=== PATIENT | female | born 1940 | race Native Hawaiian/Other Pacific Islander ===

== ENCOUNTER → 2016-11-01 | Outpatient (CLI) | payer MEDICARE ==
[2016-11-01 10:55] LABS: Blood Urea Nitrogen 11 mg/dL (7-17); Non-African American GFR(MDRD) >60 (>60 ml/min/1.73 sqM)
--- NOTE | 2016-11-01 13:03 | CT ---
EXAMINATION TYPE: CT ChestAbdPelvis w con DATE OF EXAM: 11/01/2016 COMPARISON: 02/04/2016, 12/22/2015 and 12/18/2014. HISTORY: Lymphoma. Follow-up exam. CT DLP: 1795.4 mGycm. Automated Exposure Control for Dose Reduction was Utilized. CONTRAST: CT scan of the thorax, abdomen and pelvis is performed with IV Contrast, patient injected with 100 mL of Omnipaque 300. FINDINGS: LUNGS: There has been interval growth of the right upper lobe pulmonary nodule on series 4 image 23 p reviously measuring up to 1.4 cm and currently measuring 1.1 x 1.7 cm. This solid nodule demonstrates peripheral spiculation and groundglass opacity. Additional 2 to 3 mm right upper lobe pulmonary nodu les on series 4 image 18 are unchanged. Right lower lobe groundglass pulmonary nodule measures approx imately 1.2 cm on series 4 image 33. This is more conspicuous than on the prior exam but overall unch anged in size. Linear pleural parenchymal scarring is seen within the left lower lobe as well as subp leural density on series 4 image 31 which likely relates to chronic scarring and/or atelectasis. Righ t lower lobe nodularity on series 4 image 44 is unchanged and also may relate to focus of atelectasis with no discrete measurable nodule. MEDIASTINUM: There are no greater than 1 cm hilar or mediastinal lymph nodes. No pericardial effusi on is seen. Three-vessel coronary artery calcifications are noted. OTHER: Benign dystrophic calcifications are seen within the breast parenchyma. LIVER/GB: The liver is diffusely hypoattenuated, compatible with moderate hepatic steatosis. Addition ally there is a nodular peripheral contour, indicative of underlying hepatocellular disease and cirrh osis. Gallbladder wall hyperemia and mild apparent thickening most likely relates to adjacent hepatoc ellular disease, reactive in nature. No focal suspicious arterially enhancing hepatic lesions are see n, although hepatic steatosis does limit evaluation for hepatic masses. No perihepatic ascites is pre sent. No portal vein enlargement is noted. Note is made of recanalization of the umbilical vein. PANCREAS: No significant abnormality is seen. SPLEEN: Spleen is enlarged measuring 14.4 cm in craniocaudal dimension. ADRENALS: No significant abnormality is seen. KIDNEYS: No significant abnormality is seen. BOWEL: No significant abnormality is seen. GENITAL ORGANS: Left adnexal cyst is similar to the prior exam, slightly decreased in size. LYMPH NODES: No greater than 1cm abdominal or pelvic lymph nodes are appreciated. OSSEOUS STRUCTURES: Grade 1 anterolisthesis of L4-L5 is noted, likely degenerative in nature as there are no pars interarticularis defects. Minimal degenerative changes of the thoracolumbar and lumbosac ral spine are seen as well as midline sternotomy wires. OTHER: There is slight haziness of the mid abdominal mesentery centrally within the abdomen without d iscrete adenopathy, which may relate to mesenteric venous congestion. Atherosclerosis is also seen in the abdominal aorta with ectasia but no aneurysmal dilatation. IMPRESSION: 1. Enlarging right lower lobe pulmonary nodule measuring 1.1 x 1.7 cm and previously measuring 1.4 cm . Consideration could be given to percutaneous sampling or PET/CT. Other subcentimeter pulmonary nod ules are noted to be stable. 2. Hepatic cirrhosis and sequela of portal venous hypertension. Central mesenteric fat stranding is m ore likely related to mesenteric congestion in the setting of cirrhosis rather than lymphomatous invo lvement. 3. No adenopathy within the chest, abdomen or pelvis.
== END | disposition home or self-care (01) ==
LOC: RADCTMAIN 09:55
PROVIDERS: ATTEND Internal Medicine Hematology & Oncology
DX: C83.31 Diffuse large B-cell lymphoma, lymph nodes of head, face, and neck (principal); R91.8 Other nonspecific abnormal finding of lung field; K74.60 Unspecified cirrhosis of liver; K76.6 Portal hypertension; Z88.6 Allergy status to analgesic agent; Z88.8 Allergy status to other drugs, medicaments and biological substances
CPT/HCPCS: 82565; 84520; 71260; 74177; 36415; Q9967

== ENCOUNTER → 2017-05-01 | Outpatient (CLI) | payer MEDICARE ==
[2017-05-01 17:59] LABS: HCT 42.1 % (34.0-46.0); MCH 31.8 pg (25.0-35.0); MCHC 33.2 g/dL (31.0-37.0); MCV 95.7 fL (80.0-100.0); Mean Platelet Volume 8.9; Platelet Count 125 k/uL (150-450); RDW 13.4 % (11.5-15.5); WBC 8.2 k/uL (3.8-10.6)
[2017-05-01 18:07] LABS: ALT 58 U/L (9-52); AST 71 U/L (14-36); Albumin 4.3 g/dL (3.5-5.0); Alkaline Phosphatase 48 U/L (38-126); Bilirubin, Delta 0.4 mg/dL (0.0-0.2); Blood Urea Nitrogen 16 mg/dL (7-17); Total Bilirubin 0.4 mg/dL (0.2-1.3); Total Protein 7.2 g/dL (6.3-8.2)
[2017-05-01 18:08] LABS: INR 1.1 (<1.2); Prothrombin Time 10.9 sec (9.0-12.0)
--- NOTE | 2017-05-01 22:47 | CT ---
EXAMINATION TYPE: CT ChestAbdPelvis w con DATE OF EXAM: 05/01/2017 COMPARISON: 11/01/2016 and 12/22/2015 HISTORY: 76-year-old female lymphoma, observance for metastases. TECHNIQUE: Contiguous axial scanning of the chest, abdomen, and pelvis performed with IV Contrast, pa tient injected with 100ml mL of Omnipaque 300. Delayed images through the kidneys were obtained. Slade nal/sagittal reconstructions performed. CT DLP: 2044 mGycm Automated exposure control for dose reduction was used. FINDINGS: Chest: Median sternotomy wires are present with post CABG changes. The heart is borderline enlarged without pericardial effusion. Moderate atherosclerotic arch calcification with conventional arch vessel branching anatomy. 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 -A couple 4 mm pulmonary nodules peripheral right upper lobe axial image 17 are unchanged. -Mixed groundglass and solid 2.2 cm subpleural pulmonary nodule posterior right upper lobe axial imag e 21 is unchanged from 11/01/2016 and noted to be minimally larger from 12/22/2015 where it measured 2 .0 cm. -A 1.1 cm groundglass pulmonary nodule peripheral right lower lobe axial image 31 stable from 11/02/19 17, more defined from 12/22/2015. -8 mm subpleural pulmonary nodule medial basilar left lower lobe axial image 30 stable from 11/01/2016 , more defined from 12/22/2015. -Band of atelectasis/scar at the left lower lobe. No pleural effusion. ABDOMEN: Mild circumferential wall thickening of the distal esophagus could represent esophagitis. Clinically correlate. Nodular hepatic contour compatible with cirrhosis. No focal lesion seen. Large caliber to the main po rtal vein at 1.6 cm compatible with underlying portal venous hypertension. Portal venous system appea rs patent. Gallbladder shows some layering gravel at the fundus without abnormal distention. The adrenal glands, kidneys, and pancreas appear within normal limits. Spleen is borderline enlarged at 13.5 cm AP and craniocaudal axial image 51 and coronal image 67 with small anterior splenule. Moderate atherosclerotic calcifications within the abdominal aorta and iliac arteries. Borderline fus iform ectasia of the infrarenal abdominal aorta at 2.5 cm, axial image 74. Mild central ruddy mesentery remains unchanged axial image 83 and 90. No mesenteric or retroperitonea l lymphadenopathy. Mild to moderate stool burden. No pericolonic inflammatory change. Pelvis: Bladder underdistended. Mild circumferential bladder wall thickening may relate to under distention. Uterus surgically absent. Ovaries are visualized. There is a stable 2.7 cm cystic lesion within the l eft ovary. This is actually smaller as compared to 24/08/2015, stable from 11/01/2016. No abnormal flui d collection in the pelvis or pelvic lymphadenopathy seen. Bones: Mild degenerative changes of the hips and SI joints. Degenerative changes mid to lower lumbar spine w ith grade 1 anterolisthesis at L4-L5. No osseous destructive process. No dilated small bowel, free fluid, or free air. IMPRESSION: 1. Scattered mixed groundglass and solid pulmonary nodules, stable from 11/01/2016, dominant nodule me asuring 2.2 cm. Many of these are either more full or minimally larger as compared to 12/22/2015 such as the dominant posterior right upper lobe nodule which measured 2.0 cm at that time. 2. Central ruddy mesentery of the abdomen can be seen with indolent or early lymphoma and remains unc hanged. 3. Otherwise, no suspicious lymphadenopathy in the chest, abdomen, or pelvis. 4. Cirrhosis. There is enlargement of the main portal vein and borderline splenomegaly suggesting por kerri venous hypertension. 5. Mild circumferential wall thickening distal esophagus could represent esophagitis. Cholelithiasis, and stable 2.7 cm cystic left ovarian lesion. Annual ultrasound surveillance would be warranted of t he cystic ovarian lesion in a postmenopausal female.
[2017-05-02 03:01] LABS: Hepatitis A Antibody IgM Non-Reactive (Non-Reactive); Hepatitis B Core IgM Non-Reactive (Non-Reactive)
[2017-05-02 11:44] LABS: Ceruloplasmin 36.6 mg/dL (20.0-60.0)
== END ==
LOC: RADCTMAIN 16:39
PROVIDERS: ATTEND Internal Medicine Hematology & Oncology
DX: C83.31 Diffuse large B-cell lymphoma, lymph nodes of head, face, and neck (principal); R91.8 Other nonspecific abnormal finding of lung field; K74.60 Unspecified cirrhosis of liver; R16.1 Splenomegaly, not elsewhere classified; K80.20 Calculus of gallbladder without cholecystitis without obstruction; N83.202 Unspecified ovarian cyst, left side; Z78.0 Asymptomatic menopausal state; Z88.8 Allergy status to other drugs, medicaments and biological substances; Z88.6 Allergy status to analgesic agent
CPT/HCPCS: 80076; 80074; 82565; 84520; 85027; 85610; 83516 ×2; 82390; 86038; 71260; 74177; 36415; Q9967; 82105

== ENCOUNTER → 2017-10-16 | Outpatient (CLI) | payer MEDICARE ==
[2017-10-16 12:27] LABS: Blood Urea Nitrogen 13 mg/dL (7-17)
--- NOTE | 2017-10-16 15:57 | CT ---
EXAMINATION TYPE: CT ChestAbdPelvis w con DATE OF EXAM: 10/16/2017 COMPARISON: May 01, 2017 HISTORY: Lymphoma CT DLP: 2081 mGycm CONTRAST: CT scan of the chest, abdomen and pelvis is performed with Oral Contrast and with IV Contrast, patien t injected with 100 ml mL of Isovue 300. CT Chest: LUNGS: Stable peripheral pulmonary nodules. More confluent masslike infiltrative the areas superior s egment right lower lobe pleural-based is essentially unchanged and measures 1.6 cm. Similar although less conspicuous abnormality left lower lobe medially measuring 7 mm. No new nodules seen. No new mas ses identified. No evidence for pleural effusion. COPD changes. MEDIASTINUM: Thoracic aorta is of normal caliber. The heart is not enlarged. No evidence for media stinal mass or adenopathy. HILAR STRUCTURES: No evidence for mass. No hilar adenopathy is appreciated. OTHER: No significant abnormality. CONTRAST CT ABDOMEN AND PELVIS FINDINGS: LIVER/GB: Hepatomegaly with nodule peripheral hepatic contour compatible with cirrhotic liver diseas e. Portal venous hypertension again noted. Cholelithiasis. Fatty liver. No space occupying hepatic le mirian. Biliary tree is of normal caliber. PANCREAS: No inflammation. No distinct mass. SPLEEN: Table mild splenic enlargement. No lesion seen. ADRENALS: No nodule. No thickening. KIDNEYS/BLADDER: No hydronephrosis. No nephrolithiasis. No disctinct renal mass. BOWEL: Normal appendix. Normal bowel caliber. No inflammation. GENITAL ORGANS: Left ovarian cystic change measuring 2.7 cm stable relative to prior study. No right adnexal mass seen. Hysterectomy changes noted. LYMPH NODES: No greater than 1cm abdominal or pelvic lymph nodes are appreciated. AORTA: No significant abnormality. OSSEOUS STRUCTURES: No significant abnormality is seen. OTHER: No significant additional abnormality is seen. IMPRESSION: 1. Stable scattered pulmonary nodules as discussed above. No new nodules identified. 2. Cirrhotic liver disease with portal venous hypertension.
== END | disposition home or self-care (01) ==
LOC: RADCTMAIN 11:33
PROVIDERS: ATTEND Internal Medicine Hematology & Oncology
DX: K74.60 Unspecified cirrhosis of liver (principal); K76.6 Portal hypertension; C83.31 Diffuse large B-cell lymphoma, lymph nodes of head, face, and neck; Z88.6 Allergy status to analgesic agent; Z88.8 Allergy status to other drugs, medicaments and biological substances
CPT/HCPCS: 82565; 84520; 71260; 74177; 36415; Q9967

== ENCOUNTER → 2018-04-18 | Outpatient (CLI) | payer MEDICARE ==
[2018-04-18 10:31] LABS: Blood Urea Nitrogen 17 mg/dL (7-17)
--- NOTE | 2018-04-18 13:22 | CT ---
EXAMINATION TYPE: CT ChestAbdPelvis w con DATE OF EXAM: 04/18/2018 COMPARISON: 10/16/2017 and 05/01/2017 HISTORY: 77-year-old female Follow up to lymphoma TECHNIQUE: Contiguous axial scanning of the chest, abdomen, and pelvis performed with IV Contrast, pa tient injected with 100 mL of Isovue 300. Delayed images through the kidneys were obtained. Coronal/s agittal reconstructions performed. CT DLP: 1858.7 mGycm Automated exposure control for dose reduction was used. FINDINGS: Chest: Median sternotomy wires are present with post-CABG changes. Moderate atherosclerotic calcifications within the aortic arch and descending thoracic aorta. Mild an eurysm of upper descending thoracic aorta at 3.1 cm. No thoracic lymphadenopathy by CT size criteria. Redemonstrated focal subpleural masslike area of consolidation along the posterolateral right mid danae g, axial image 22. This currently measures 2.0 cm. This measured 1.7 cm on 10/16/2017 and 2.2 cm on . Vague scattered groundglass nodularity, for example, peripheral right upper lobe, axial image 17, per ipheral right midlung axial image 31, and medial left lower lobe axial image 29 are largely unchanged . Some strandy atelectasis at the left base. Minimal emphysematous changes noted. No pleural effusion. ABDOMEN: Nodular contour of the liver and hepatomegaly at 21.4 cm. No focal liver lesion or biliary ductal dil atation. Portal venous system appears patent. Gallbladder, adrenal glands, kidneys, and pancreas appear within normal limits. Tiny anterior splenule and stable mild splenomegaly at 14.6 cm measured on coronal series. Moderate atherosclerotic calcifications within the abdominal aorta and moderate to severe within the iliac arteries. Mild fusiform dilatation of the infrarenal abdominal aorta without significant ectasi a or aneurysm. No dilated small bowel, free fluid, or free air. No mesenteric or retroperitoneal lymphadenopathy. Th e ruddy mesentery seen on 05/01/2017 is not as apparent on the present study. Mild overall stool burden. Redundant sigmoid colon. No pericolonic inflammatory change. Pelvis: Bladder partially distended. Uterus surgically absent. Both ovaries are visualized. 2.3 cm cystic les ion of the left ovary remains unchanged. Annual surveillance is recommended in a postmenopausal femal e. No abnormal fluid collection in the pelvis or pelvic lymphadenopathy seen. Bones: Mild degenerative changes at the hips and left SI joint. Facet arthropathy mid to lower lumbar spine. Endplate spondylosis midthoracic spine. Grade 1 anterolisthesis L4-L5. No osseous destructive proces s. IMPRESSION: 1. Stable scattered subtle groundglass nodularity. However, the dominant subpleural masslike consolid ation within the posterior right midlung is stable to minimally larger at 2.0 cm versus 1.7 cm, previ ously. 2. Previously seen ruddy mesentery on 05/01/2017 is improved on the current exam. No suspicious lympha denopathy. 3. Cirrhotic morphology of the liver. Splenomegaly at 14.6 cm suggests underlying pulmonary arterial hypertension. 4. Continued annual surveillance recommended for the patient's 2.3 cm left ovarian cyst.
== END | disposition home or self-care (01) ==
LOC: RADCTMAIN 09:54
PROVIDERS: ATTEND Internal Medicine Hematology & Oncology
DX: Z03.89 Encounter for observation for other suspected diseases and conditions ruled out (principal); R91.8 Other nonspecific abnormal finding of lung field; R16.1 Splenomegaly, not elsewhere classified; C83.31 Diffuse large B-cell lymphoma, lymph nodes of head, face, and neck; Z88.6 Allergy status to analgesic agent; Z88.8 Allergy status to other drugs, medicaments and biological substances
CPT/HCPCS: 82565; 84520; 71260; 74177; 36415; Q9967

== ENCOUNTER 2023-04-14 21:50 | Inpatient (IN) | payer MEDICARE ==
[2023-04-14] MEDS ORDERED: MORPHINE SULFATE 4 MG/ML SYRINGE IV PRN (22:08)
[2023-04-14] MEDS ORDERED: ONDANSETRON 4 MG/2 ML VIAL IVP PRN (22:08)
[2023-04-14] MEDS ORDERED: NALOXONE 0.4 MG/ML 1 ML VIAL IV PRN (22:08)
--- NOTE | 2023-04-14 22:28 | ED ---
SOB HPI - General Chief Complaint: Shortness of Breath Stated Complaint: Respiratory Failure, Sepsis Time Seen by Provider: 04/14/23 22:08 Source: patient, EMS, RN notes reviewed, old records reviewed Mode of arrival: EMS Limitations: no limitations - History of Present Illness Initial Comments: This is a 82-year-old female to the ER today. Patient presents today for evaluation of sepsis pneumonia respiratory failure transfer from outside facility. Patient accepted in transfer for admission and supportive care MD Complaint: shortness of breath, cough, "asthma attack", anxiety -: days(s) Severity: severe Improves With: nothing Known History Of: congestive heart failure, recurrent pneumonia Context: recent URI, recent illness Associated Symptoms: denies other symptoms - Related Data Home Medications Medication Instructions Recorded Confirmed Aspirin EC [Ecotrin Low Dose] 81 mg PO DAILY 04/14/23 04/14/23 Cholecalciferol [Vitamin D3 (25 25 mcg PO DAILY 04/14/23 04/14/23 Mcg = 1000 Iu)] Cyanocobalamin (Vitamin B-12) 1,000 mcg PO DAILY 04/14/23 04/14/23 [Vitamin B-12] Ferrous Sulfate [Iron (65 MG 325 mg PO DAILY 04/14/23 04/14/23 Elemental)] Fluticasone Nasal [place] [Flonase 1 spray EA NOSTRIL DAILY 04/14/23 04/14/23 Nasal [place]] Levothyroxine Sodium [Synthroid] 200 mcg PO DAILY 04/14/23 04/14/23 Omeprazole 40 mg PO DAILY 04/14/23 04/14/23 Simvastatin [Zocor] 20 mg PO HS 04/14/23 04/14/23 carvediloL [Coreg] 6.25 mg PO BID 04/14/23 04/14/23 glipiZIDE [Glucotrol] 5 mg PO BID 04/14/23 04/14/23 lisinopriL 40 mg PO DAILY 04/14/23 04/14/23 metFORMIN HCL 1,000 mg PO BID 04/14/23 04/14/23 Previous Rx's Medication Instructions Recorded Amoxic-Pot Clav 875-125Mg 1 each PO Q12HR 7 Days #14 tab 04/21/23 [Augmentin 875-125] Furosemide [Lasix] 20 mg PO DAILY #30 tab 04/21/23 Isosorbide Mononitrate ER [Imdur] 30 mg PO DAILY #30 tab 04/21/23 Sodium Chloride 0.65% Nasal [Deep 2 spray NASAL QID #5 ml 04/21/23 Sea (Saline)] Allergies Allergy/AdvReac Type Severity Reaction Status Date / Time atorvastatin [From Lipitor] Allergy Unknown Verified 04/14/23 22:39 bisacodyl Allergy Unknown Verified 04/14/23 22:39 [From Dulcolax (bisacodyl)] carisoprodol [From Soma] Allergy Unknown Verified 04/14/23 22:39 morphine Allergy Vomiting Verified 04/14/23 22:39 orphenadrine Allergy Unknown Verified 04/14/23 22:39 pseudoephedrine Allergy Unknown Verified 04/14/23 22:39 [From Sudafed] tramadol [From Ultram] Allergy Unknown Verified 04/14/23 22:39 Review of Systems ROS Statement: Those systems with pertinent positive or pertinent negative responses have been documented in the HPI. ROS Other: All systems not noted in ROS Statement are negative. Past Medical History Past Medical History: Coronary Artery Disease (CAD), Cancer, Chest Pain / Angina, Diabetes Mellitus, Hyperlipidemia, Hypertension, Osteoarthritis (OA), Rheumatoid Arthritis (RA) Additional Past Medical History / Comment(s): hypothyroidism, neuropathy, lymphoma History of Any Multi-Drug Resistant Organisms: None Reported Past Surgical History: Coronary Bypass/CABG, Hysterectomy Additional Past Surgical History / Comment(s): thyroidectomy, Cataracts partial thyroidectomy Past Psychological History: Unable to Obtain Smoking Status: Former smoker Past Alcohol Use History: None Reported Past Drug Use History: None Reported General Exam Limitations: no limitations General appearance: alert, in no apparent distress, anxious Head exam: Present: atraumatic, normocephalic, normal inspection Eye exam: Present: normal appearance, PERRL, EOMI. Absent: scleral icterus, conjunctival injection, periorbital swelling ENT exam: Present: normal exam, mucous membranes moist Neck exam: Present: normal inspection. Absent: tenderness, meningismus, lymph adenopathy Respiratory exam: Present: normal lung sounds bilaterally. Absent: respiratory distress, wheezes, rales, rhonchi, stridor Cardiovascular Exam: Present: normal rhythm, tachycardia, normal heart sounds. Absent: systolic murmur, diastolic murmur, rubs, gallop, clicks GI/Abdominal exam: Present: soft, normal bowel sounds. Absent: distended, tenderness, guarding, rebound, rigid Extremities exam: Present: normal inspection, full ROM, normal capillary refill. Absent: tenderness, pedal edema, joint swelling, calf tenderness Back exam: Present: normal inspection Neurological exam: Present: alert, oriented X3, CN II-XII intact Psychiatric exam: Present: normal affect, normal mood Skin exam: Present: warm, dry, intact, normal color. Absent: rash Course Vital Signs 04/14/23 04/14/23 04/15/23 21:51 21:59 00:00 Temperature 98.8 F Pulse Rate 104 H 97 Pulse Rate [ Keycase Assembler ] Respiratory 12 24 Rate Blood Pressure 121/62 116/59 Blood Pressure [Right Arm] O2 Sat by Pulse 98 98 Oximetry Fraction of 40 Inspired Oxygen (FIO2) 04/15/23 04/15/23 04/15/23 00:45 03:45 04:00 Temperature Pulse Rate 93 Pulse Rate [ Keycase Assembler ] Respiratory 24 Rate Blood Pressure 97/59 Blood Pressure [Right Arm] O2 Sat by Pulse 98 Oximetry Fraction of 40 40 Inspired Oxygen (FIO2) 04/15/23 04/15/23 04/15/23 06:10 07:49 07:59 Temperature 98.6 F Pulse Rate 93 100 Pulse Rate [ Keycase Assembler ] Respiratory 24 24 Rate Blood Pressure 121/63 119/65 Blood Pressure [Right Arm] O2 Sat by Pulse 98 94 L Oximetry Fraction of 50 Inspired Oxygen (FIO2) 04/15/23 04/15/23 04/15/23 11:03 11:49 11:55 Temperature 97.6 F 99.1 F Pulse Rate 80 Pulse Rate [ 84 Keycase Assembler ] Respiratory 34 H 24 Rate Blood Pressure 138/67 Blood Pressure 116/83 [Right Arm] O2 Sat by Pulse 98 99 Oximetry Fraction of 50 40 Inspired Oxygen (FIO2) - Reevaluation(s) Reevaluation #1: 04/14/23 23:38 Medical record is reviewed Reevaluation #2: 04/14/23 23:38 Patient symptoms are unchanged Reevaluation #3: 04/14/23 23:38 Patient informed of results questions answered Reevaluation #4: 04/14/23 23:38 Was pt. sent in by a medical professional or institution (, PA, CUSTOMER OPERATIONS INTERN, urgent care, hospital, or correction...) When possible be specific @ -no Did you speak to anyone other than the patient for history (EMS, parent, family, police, friend...)? What history was obtained from this source @ -no Did you review nursing and triage notes (agree or disagree)? Why? @ -agree Are old charts reviewed (outside hosp., previous admission, EMS record, old EKG, old radiological studies, urgent care reports/EKG's, correction records)? Report findings @ -yes Differential Diagnosis (chest pain, altered mental status, abdominal pain women, abdominal pain men, vaginal bleeding, weakness, fever, dyspnea, syncope, headache, dizziness, GI bleed, back pain, seizure, CVA, palpatations, mental health, musculoskeletal)? @ -prior EKG interpreted by me (3pts min.). @ -yes X-rays interpreted by me (1pt min.). @ -yes positive for right-sided pleural effusion CT interpreted by me (1pt min.). @ -no U/S interpreted by me (1pt. min.). @ -no What testing was considered but not performed or refused? (CT, X-rays, U/S, labs)? Why? @ -none What meds were considered but not given or refused? Why? @ -none Did you discuss the management of the patient with other professionals (professionals i.e. , PA, CUSTOMER OPERATIONS INTERN, lab, RT, psych nurse, health and social care teacher, crusher operator, teacher, branch officer, dependency case manager)? Give summary @ -no Was smoking cessation discussed for >3mins.? @ -no Was critical care preformed (if so, how long)? @ -yes31 Were there social determinants of health that impacted care today? How? (Home lessness, low income, unemployed, alcoholism, drug addiction, transportation, low edu. Level, literacy, decrease access to med. care, senior care, rehab)? @ -none Was there de-escalation of care discussed even if they declined (Discuss DNR or withdrawal of care, Hospice)? DNR status @ -no What co-morbidities impacted this encounter? (DM, HTN, Smoking, COPD, CAD, Cancer, CVA, ARF, Chemo, Hep., AIDS, mental health diagnosis, sleep apnea, morbid obesity)? @ -none Was patient admitted / discharged? Hospital course, mention meds given and route, prescriptions, significant lab abnormalities, going to OR and other pertinent info. @ - 82 female will be admitted for respiratory failure and pneumonia. Patient will be placed on IV antibiotics and admitted for further evaluation and management Admitted Undiagnosed new problem with uncertain prognosis? @ -no Drug Therapy requiring intensive monitoring for toxicity (Heparin, Nitro, Insulin, Cardizem)? @ -no Were any procedures done? @ -no Diagnosis/symptom? @ -Right pleural effusion shortness of breath dyspnea, respiratory failure, pneumonia Acute, or Chronic, or Acute on Chronic? @ -Acute Uncomplicated (without systemic symptoms) or Complicated (systemic symptoms)? @ -Complicated Side effects of treatment? @ -no Exacerbation, Progression, or Severe Exacerbation? @ -exacerbation Poses a threat to life or bodily function? How? (Chest pain, [place], [place], pneumonia, PE, COPD, DKA, ARF, appy, cholecystitis, CVA, Diverticulitis, Homicidal, [place] cidal, threat to staff... and all critical care pts) @ -yes significant respiratory distress Reevaluation #5: 04/14/23 23:39 Differential Dyspnea: Coronary syndrome, arrhythmia, tamponade, asthma, COPD, pulmonary embolism, pneumonia, pneumothorax, pulmonary effusion, anaphylaxis, diabetic ketoacidosis, flailed chest, pulmonary contusion, diaphragmatic rupture, anemia, n euromuscular, this is not meant to be an all-inclusive list. - Consultations Consultation #1: Spoke with [facility] who agrees to admit this patient Medical Decision Making - Medical Decision Making 82 female will be admitted for respiratory failure and pneumonia. Patient will be placed on IV antibiotics and admitted for further evaluation and management - Lab Data Result diagrams: 04/20/23 09:42 04/21/23 08:48 - EKG Data -: EKG Interpreted by Me (EKG is sinus tachycardia 104 [place] 274 QRS 146 QTc 459) - Radiology Data Radiology results: report reviewed (Chest x-ray is pulmonary edema versus pneumonia), image reviewed Critical Care Time Critical Care Time: Yes Total Critical Care Time: 31 Disposition Clinical Impression: Acute exacerbation of chronic obstructive pulmonary disease, Acute respiratory failure, Community acquired pneumonia, Pneumonia, NSTEMI (non-ST elevated myocardial infarction), Pleural effusion, right Disposition: ADMITTED IP TO THIS HOSP Condition: Fair Is patient prescribed a controlled substance at d/c from ED?: No Time of Disposition: 22:20
[2023-04-14] MEDS: SODIUM CHLORIDE 0.9% 1,000 ML IV STA ×2 (22:39)
[2023-04-14] MEDS: SODIUM CHLORIDE 0.9% 1,000 ML IV SCH (22:43)
[2023-04-14 22:44] LABS: Basophils % (A) 0 %; Eosinophils # (A) 0.1 k/uL (0-0.7); Eosinophils % (A) 0 %; HCT 43.6 % (34.0-46.0); HGB 14.2 gm/dL (11.4-16.0); Lymphocytes # (A) 0.8 k/uL (1.0-4.8); Lymphocytes % (A) 4 %; MCH 30.6 pg (25.0-35.0); MCHC 32.7 g/dL (31.0-37.0); MCV 93.6 fL (80.0-100.0); Mean Platelet Volume 9.3; Monocytes # (A) 0.4 k/uL (0-1.0); Monocytes % (A) 2 %; Neutrophils # (A) 18.1 k/uL (1.3-7.7); Neutrophils % (A) 93 %; Platelet Count 205 k/uL (150-450); RBC 4.65 m/uL (3.80-5.40); RDW 13.3 % (11.5-15.5); WBC 19.5 k/uL (3.8-10.6)
[2023-04-14 22:48] LABS: Appearance,Urine Cloudy (Clear); Bilirubin,Urine Negative (Negative); Blood,Urine Negative (Negative); Color,Urine Colorless; Glucose,Urine (UA) Negative (Negative); Hyaline Casts,Urine 12 /lpf (0-2); Ketones,Urine 1+ (Negative); Leukocyte Esterase,Urine Negative (Negative); Mucus,Urine Rare /hpf; Nitrite,Urine Negative (Negative); PH, Urine 5.5 (5.0-8.0); Protein,Urine 1+ (Negative); RBC,Urine 3 /hpf (0-5); Specific Gravity,Urine 1.009 (1.001-1.035); Squamous Epithelial Cell,Urine 2 /hpf (0-4); Urobilinogen,Urine <2.0 mg/dL (<2.0); WBC,Urine 9 /hpf (0-5)
[2023-04-14 22:58] LABS: INR 1.1 (<1.2); Partial Thromboplastin Time 23.8 sec (22.0-30.0); Prothrombin Time 11.6 sec (10.0-12.5)
--- NOTE | 2023-04-14 22:58 | XR ---
EXAM: XR Chest, 1 View CLINICAL HISTORY: ITS.REASON XR Reason: sob TECHNIQUE: Frontal view of the chest. COMPARISON: 04/18/2018. FINDINGS: Lungs: Haziness throughout the visualized right lung suggestive of possible pulmonary edema. Scarring/subsegmental atelectasis at the left midlung. Pleural space: Moderate right pleural effusion is suggested. No pneumothorax. Heart: There is cardiomegaly. Post CABG changes. Mediastinum: Unremarkable. Normal mediastinal contour. Bones/joints: Sternotomy wires are noted in place. No acute fracture. Vasculature: Atherosclerotic disease. Upper abdomen: Elevation of the right hemidiaphragm. IMPRESSION: 1. Cardiomegaly. 2. Moderate right pleural effusion. 3. Presumed pulmonary edema at the right lung. 4. Scarring/subsegmental atelectasis at the right midlung
[2023-04-14 23:18] LABS: ALT 22 U/L (4-34); AST 41 U/L (14-36); African American GFR (CKD) 87 (>60 ml/min/1.73 sqM); Albumin 3.8 g/dL (3.5-5.0); Alkaline Phosphatase 55 U/L (38-126); Anion Gap 15 mmol/L; Blood Urea Nitrogen 15 mg/dL (7-17); Calcium 8.4 mg/dL (8.4-10.2); Carbon Dioxide 13 mmol/L (22-30); Chloride 97 mmol/L (98-107); Glucose 226 mg/dL (74-99); Magnesium 1.5 mg/dL (1.6-2.3); Non-African American GFR(CKD) 76 (>60 ml/min/1.73 sqM); Phosphorus 4.9 mg/dL (2.5-4.5); Potassium 5.3 mmol/L (3.5-5.1); Sodium 125 mmol/L (137-145); Total Bilirubin 0.6 mg/dL (0.2-1.3); Total Protein 6.6 g/dL (6.3-8.2)
[2023-04-14 23:25] LABS: NT-Pro-B-Type Natriuretic Pept 805 pg/mL
[2023-04-14] MEDS ORDERED: NITROGLYCERIN SL TABS 0.4 MG TAB SUBLINGUAL PRN (23:42)
[2023-04-14] MEDS ORDERED: HYDROmorphone 1 MG/ML 1 ML SYRINGE IVP PRN (23:44)
[2023-04-14] MEDS: AZITHROMYCIN 500 MG in SODIUM CHLORIDE 0.9% 250 ML IVPB STA (23:54)
[2023-04-14] MEDS: HEPARIN SODIUM 1,000 UN/ML (10ML VL) IV ONE (23:54)
[2023-04-15] MEDS: HYDROmorphone 1 MG/ML 1 ML SYRINGE IVP STA (00:09)
[2023-04-15] MEDS: HEPARIN SOD,PORK IN 0.45% NACL 25,000 UNIT in 0.45% NACL 1 250ML.BAG IV SCH (00:14)
--- NOTE | 2023-04-15 06:43 | XR ---
EXAMINATION TYPE: XR chest 1V DATE OF EXAM: 04/15/2023 COMPARISON: 04/14/2023 HISTORY: Respiratory failure TECHNIQUE: Single frontal view of the chest is obtained. FINDINGS: There is been interval worsening of the opacification of the right hemithorax predominantly secondary to an increasing large right pleural effusion. The left lung remains clear of airspace consolidation but there is diffuse interstitial opacity likel y reflecting mild pulmonary vascular congestion. There is been prior CABG surgery. There is no pneumothorax. IMPRESSION: Acute cardiopulmonary disease with moderate interval worsening in the right lung as desc ribed above.
[2023-04-15 07:45] LABS: Basophils % (A) 0 %; Eosinophils % (A) 0 %; HCT 38.7 % (34.0-46.0); Lymphocytes # (A) 1.5 k/uL (1.0-4.8); Lymphocytes % (A) 16 %; MCH 31.6 pg (25.0-35.0); MCHC 33.5 g/dL (31.0-37.0); MCV 94.2 fL (80.0-100.0); Mean Platelet Volume 8.6; Monocytes # (A) 0.6 k/uL (0-1.0); Monocytes % (A) 6 %; Neutrophils # (A) 7.3 k/uL (1.3-7.7); Neutrophils % (A) 77 %; Platelet Count 159 k/uL (150-450); RBC 4.11 m/uL (3.80-5.40); RDW 13.3 % (11.5-15.5); WBC 9.5 k/uL (3.8-10.6)
[2023-04-15 08:02] LABS: ALT 21 U/L (4-34); AST 35 U/L (14-36); African American GFR (CKD) 87 (>60 ml/min/1.73 sqM); Albumin 3.4 g/dL (3.5-5.0); Alkaline Phosphatase 52 U/L (38-126); Anion Gap 6 mmol/L; Blood Urea Nitrogen 18 mg/dL (7-17); Calcium 8.1 mg/dL (8.4-10.2); Carbon Dioxide 20 mmol/L (22-30); Chloride 101 mmol/L (98-107); Glucose 191 mg/dL (74-99); Magnesium 1.6 mg/dL (1.6-2.3); Non-African American GFR(CKD) 76 (>60 ml/min/1.73 sqM); Phosphorus 4.6 mg/dL (2.5-4.5); Potassium 5.3 mmol/L (3.5-5.1); Sodium 127 mmol/L (137-145); Total Bilirubin 0.4 mg/dL (0.2-1.3); Total Protein 6.1 g/dL (6.3-8.2)
[2023-04-15] MEDS: HEPARIN SODIUM 1,000 UN/ML (10ML VL) IV PRN (08:41)
[2023-04-15] MEDS: ASPIRIN 325 MG TAB PO SCH (08:43)
[2023-04-15] MEDS ORDERED: RX INFO: IV CONTRAST WAS GIVEN 1 EACH MISC MISCELLANE PRN ×2 (09:43→15:33)
--- NOTE | 2023-04-15 09:53 | P.CNPUL ---
History of Present Illness Consult date: 04/15/23 Reason for consult: dyspnea, pneumonia History of present illness: This is a 82-year-old female patient was currently being seen in the emergency department. The patient arrived to our hospital yesterday evening and the patient is currently being seen in the ICU, currently on a BiPAP at a pressure of 12 or 6 cm of water and FiO2 of 50%. Her breathing is labored while on the BiPAP and she is still tachypneic and she is able to generate a tidal volume around 450 while on the BiPAP. The patient initially presented to [facility] for shortness of breath. According to the family, the patient was having issues with constipation and she was taking laxatives at home. She was also having shortness of breath for the past 3 days. She refused to seek any medical attention. Denies having any abdominal pain. In the emergency, she was in acute respiratory distress and she was tachypneic and using accessory muscles of breathing. She has wheezing. She was given Xopenex. Her heart rate was around 130 and she was diaphoretic. She was given Lasix 40 mg IV and she was given also a dose of Solu-Medrol and initially she was placed on a nonrebreather and subsequently she was switched to a BiPAP. Noted the patient is known to have coronary artery disease. She has undergone previous bypass surgery in 2009. She also has history of CHF, and she has been followed by oncology regarding previous history of non-Hodgkin's lymphoma and according to her disease is in remission. She is also known to have diabetes mellitus and hyperlipidemia and she is obese. For now, the patient remains on a BiPAP. Triple-lumen catheter was inserted in the other hospital as the patient was briefly hypotensive. She was given Rocephin and Zithromax. I reviewed the chest x-ray from today and the patient has a very dense and extensive consolida tion involving the entire right lung and the left lung remains clear from her airspace disease. There is obvious worsening in the opacification of the right hemithorax at this point. The patient is arousable and awake. Initial white cell count was 19.5 dropped down to 9.5. Hemoglobin is at 14.2 dropped down to 13. Sodium level is at 127, potassium is at 5.3, BUN is 18 with a creatinine of 0.7. Troponin is at 0.10.2 and 0.3 respectively x 3. UA showing +1 protein, negative for any infection. The patient has not had a viral panel checked at this point. She is currently on IV heparin. Review of Systems Unable to take full history as the patient is currently on a BiPAP and is difficult to communicate with the patient. Positive findings almost above the h istory of present illness. Past Medical History Past Medical History: Coronary Artery Disease (CAD), Cancer (lymphoma, NHL 2012), Chest Pain / Angina, Diabetes Mellitus, Hyperlipidemia, Hypertension, Osteoarthritis (OA), Rheumatoid Arthritis (RA) Additional Past Medical History / Comment(s): hypothyroidism, neuropathy, lymphoma History of Any Multi-Drug Resistant Organisms: None Reported Past Surgical History: Coronary Bypass/CABG, Hysterectomy Additional Past Surgical History / Comment(s): thyroidectomy, Cataracts partial thyroidectomy Past Psychological History: Unable to Obtain Smoking Status: Former smoker Past Alcohol Use History: None Reported Past Drug Use History: None Reported Medications and Allergies Home Medications Medication Instructions Recorded Confirmed Type Aspirin EC [Ecotrin Low Dose] 81 mg PO DAILY 04/14/23 04/14/23 History Cholecalciferol [Vitamin D3 (25 25 mcg PO DAILY 04/14/23 04/14/23 History Mcg = 1000 Iu)] Cyanocobalamin (Vitamin B-12) 1,000 mcg PO DAILY 04/14/23 04/14/23 History [Vitamin B-12] Ferrous Sulfate [Feosol] 325 mg PO DAILY 04/14/23 04/14/23 History Fluticasone Nasal [place] [Flonase 1 spray EA NOSTRIL DAILY 04/14/23 04/14/23 History Nasal [place]] Levothyroxine Sodium [Synthroid] 200 mcg PO DAILY 04/14/23 04/14/23 History Meloxicam [Mobic] 7.5 mg PO DAILY 04/14/23 04/14/23 History Omeprazole 40 mg PO DAILY 04/14/23 04/14/23 History Simvastatin [Zocor] 20 mg PO HS 04/14/23 04/14/23 History carvediloL [Coreg] 6.25 mg PO BID 04/14/23 04/14/23 History glipiZIDE [Glucotrol] 5 mg PO BID 04/14/23 04/14/23 History lisinopriL 40 mg PO DAILY 04/14/23 04/14/23 History metFORMIN HCL 1,000 mg PO BID 04/14/23 04/14/23 History Allergies Allergy/AdvReac Type Severity Reaction Status Date / Time atorvastatin [From Lipitor] Allergy Unknown Verified 04/14/23 22:39 bisacodyl Allergy Unknown Verified 04/14/23 22:39 [From Dulcolax (bisacodyl)] carisoprodol [From Soma] Allergy Unknown Verified 04/14/23 22:39 morphine Allergy Vomiting Verified 04/14/23 22:39 orphenadrine Allergy Unknown Verified 04/14/23 22:39 pseudoephedrine Allergy Unknown Verified 04/14/23 22:39 [From Sudafed] tramadol [From Ultram] Allergy Unknown Verified 04/14/23 22:39 Physical Exam Vitals: Vital Signs Temp Pulse Resp BP Pulse Ox FiO2 04/15/23 07:59 40 04/15/23 07:49 98.6 F 100 24 119/65 94 L 04/15/23 06:10 93 24 121/63 98 04/15/23 04:00 93 24 97/59 98 04/15/23 03:45 40 04/15/23 00:45 40 04/15/23 00:00 97 24 116/59 98 04/14/23 21:59 40 04/14/23 21:51 98.8 F 104 H 12 121/62 98 Intake and Output 04/14/23 04/15/23 04/15/23 22:59 06:59 14:59 Intake Total 84.833 Output Total 600 Balance -515.167 Intake: Intake, IV Titration 84.833 Amount Heparin Sod,Pork in 0.45% 84.833 NaCl 25,000 unit In 0.45 % NaCl 1 250ml.bag @ 10. 5992 UNITS/KG/HR 10 mls/ hr IV .Q24H [facility] Rx#: [id number] Output: Urine 600 Other: Weight 94.347 kg Patient is currently on a BiPAP pressure of 12/6 with reports of 50%. Breathing is labored and the patient is a mild degree of respiratory distress. Head exam was generally normal. There was no scleral icterus or corneal arcus. Mucous membranes were moist. Neck was supple and without jugular venous distension, thyromegaly, or carotid bruits. Carotids were easily palpable bilaterally. There was no adenopathy. Lung sounds are diminished specially on the right compared to the last few sc attered rhonchi scattered expiratory wheezes. Cardiac exam revealed the PMI to be normally situated and sized. The rhythm was regular and no extrasystoles were noted during several minutes of auscultation. The first and second heart sounds were normal and physiologic splitting of the second heart sound was noted. There were no murmurs, rubs, clicks, or gallops. Abdominal exam revealed normal bowel sounds. The abdomen was soft, non-tender, and without masses, organomegaly, or appreciable enlargement of the abdominal aorta. Examination of the extremities revealed easily palpable radial, femoral and pedal pulses. There was no cyanosis, clubbing or edema. Noted the patient has a triple-lumen catheter in the right femoral vein. Examination of the skin revealed no evidence of significant rashes, suspicious appearing nevi or other concerning lesions. Neurologic is able to move all extremities and there is no focal neurological deficit at this point in time. She is able to communicate and follow simple commands. Results - Laboratory Findings CBC and BMP: 04/15/23 07:13 04/15/23 07:13 PT/INR, D-dimer PT 11.6 sec (10.0-12.5) 04/14/23 22:18 INR 1.1 (<1.2) 04/14/23 22:18 Abnormal lab findings: Abnormal Labs 04/14/23 04/14/23 04/14/23 22:18 22:18 22:18 WBC 19.5 H Neutrophils # 18.1 H Lymphocytes # 0.8 L APTT Sodium 125 L Potassium 5.3 H Chloride 97 L Carbon Dioxide 13 L BUN Glucose 226 H Calcium Phosphorus 4.9 H Magnesium 1.5 L AST 41 H Troponin I Total Protein Albumin Urine Appearance Cloudy H Urine Protein 1+ H Urine Ketones 1+ H Urine WBC 9 H Hyaline Casts 12 H Urine Mucus Rare H 04/14/23 04/15/23 04/15/23 22:18 01:59 07:13 WBC Neutrophils # Lymphocytes # APTT Sodium 127 L Potassium 5.3 H Chloride Carbon Dioxide 20 L BUN 18 H Glucose 191 H Calcium 8.1 L Phosphorus 4.6 H Magnesium AST Troponin I 0.162 H* 0.234 H* Total Protein 6.1 L Albumin 3.4 L Urine Appearance Urine Protein Urine Ketones Urine WBC Hyaline Casts Urine Mucus 04/15/23 04/15/23 07:13 07:13 WBC Neutrophils # Lymphocytes # APTT 38.8 H Sodium Potassium Chloride Carbon Dioxide BUN Glucose Calcium Phosphorus Magnesium AST Troponin I 0.324 H* Total Protein Albumin Urine Appearance Urine Protein Urine Ketones Urine WBC Hyaline Casts Urine Mucus - Diagnostic Findings Chest x-ray: image reviewed Assessment and Plan Plan: Acute hypoxic respiratory failure and the patient is currently on a BiPAP at a pressure of 12/6 with an FiO2 of 50%. Note that the patient is impending respiratory failure at this point and she may require intubation mechanical ventilation for that reason the patient will be transferred to the intensive care unit for further monitoring. The patient has dense consolidation of the right lung sparing the right apex. This is most likely consistent with a pneumonia. Pleural effusion is felt to be less likely Shortness of breath secondary to above Acute leukocytosis, improving Hypotension, improved with fluids, currently on Lopressor and the patient has triple-lumen cath in the right femoral vein Obesity with a BMI of 31.6 History of non-Hodgkin's lymphoma History of coronary artery disease with previous bypass surgery Diabetes mellitus Hypertension Rheumatoid arthritis Degenerative arthritis Troponin leak, likely secondary to type II ischemia related to extensive right lung pneumonia Plan Continue BiPAP for now at the same pressure setting. Obtain a blood gas May likely require intubation mechanical ventilation especially if the patient decompensates and/or does not show any significant improvement over the next few hours Obtain a CAT scan of the chest with contrast Check procalcitonin level Will cover the patient with a combination of Zosyn, vancomycin and Zithromax Check blood cultures IV fluids at a rate of 130 cc an hour of normal saline Obtain echocardiogram Continue IV heparin in regards to the elevation of troponins Will continue to follow. Condition is critical. The patient will need ICU transfer. Time with Patient: Greater than 30
[2023-04-15] MEDS ORDERED: VANCOMYCIN IV PER PHARMACY 1 EACH MISC MISCELLANE PRN (09:54)
[2023-04-15] MEDS: PIPERACILLIN-TAZOBACTAM 3.375 GM in SODIUM CHLORIDE 0.9% 100 ML IVPB SCH (10:25)
[2023-04-15 10:37] LABS: ABG Base Excess -4.9 mmol/L; ABG HCO3 21 mmol/L (21-25); ABG Oxygen Saturation 98.7 % (94-97); ABG PCO2 37 mmHg (35-45); ABG PH 7.35 (7.35-7.45); ABG PO2 114 mmHg (83-108); ABG TCO2 22 mmol/L (19-24); Allen Test Performed? Yes
[2023-04-15] MEDS: VANCOMYCIN 1,500 MG in SODIUM CHLORIDE 0.9% 500 ML 500 ML IVPB SCH (11:09)
--- NOTE | 2023-04-15 11:20 | CT ---
EXAMINATION TYPE: CT chest w con DATE OF EXAM: 04/15/2023 COMPARISON: 04/18/2018 HISTORY: Resiratory failure, pneumonia CT DLP: 339 mGycm Automated exposure control for dose reduction was used. TECHNIQUE: CT scan of the chest is performed with IV Contrast, patient injected with 100 mL of Isovue 300. MIP Images are created on CT scanner and reviewed. 3D reconstructed images are created on an independent workstation and reviewed. FINDINGS: There is a large right pleural effusion and right lower lobe atelectasis. There is a small left pleur al effusion. The great vessels chest are normal and there is no mediastinal, hilar or axillary adenopathy. Limited scanning through the upper abdomen reveals fatty infiltration. No focal osseous lesions are seen. Impression: large right pleural effusion and right lower lobe atelectasis.
[2023-04-15 11:50] LABS: Glucose,Whole Blood 166 mg/dL (70-110)
[2023-04-15] MEDS ORDERED: DEXTROSE 50% SYRINGE 50 ML IVP PRN ×2 (12:37)
[2023-04-15 12:43] LABS: African American GFR (CKD) >90 (>60 ml/min/1.73 sqM); Anion Gap 8 mmol/L; Blood Urea Nitrogen 19 mg/dL (7-17); Carbon Dioxide 19 mmol/L (22-30); Chloride 101 mmol/L (98-107); Glucose 156 mg/dL (74-99); Non-African American GFR(CKD) 82 (>60 ml/min/1.73 sqM); Potassium 5.1 mmol/L (3.5-5.1); Sodium 128 mmol/L (137-145)
--- NOTE | 2023-04-15 13:59 | P.PCN ---
Date of Procedure: 04/15/23 Preoperative Diagnosis: Pleural effusion right Postoperative Diagnosis: Pleural effusion right Procedure(s) Performed: Thoracentesis, right Anesthesia: local Surgeon: Tosha Parsons Estimated Blood Loss (ml): 0 Pathology: other Condition: critical Disposition: ICU Operative Findings: A time out was performed and the chest x-ray was reviewed, the appropriate side was confirmed and marked. My hands were washed immediately prior to the procedure. I wore a surgical cap, mask with protective eyewear, sterile gown and sterile gloves throughout the procedure. The patient was prepped and draped in a sterile manner using chlorhexidine scrub after the appropriate level was perc ussed and confirmed by ultrasound. 1% lidocaine was used to anesthesize the skin, subcutaneous tissue, superior aspect of the rib periosteum and parietal pleura. A finder needle was then introduced over the superior aspect of the rib to locate the pleural fluid; 2colored fluid was aspirated at a depth of approximately 2 cm. A 10-blade scalpel was used to katarina the skin at the insertion site. The [id number] needle was then introduced through the skin incision into the pleural space using negative aspiration pressure and the red colometric indicator to confirm appropriate positioning of the needle. The thoracentesis catheter was then threaded without difficulty. 2400 ml of turbid colored fluid was removed without difficulty. The catheter was then removed. No immediate complications were noted during the procedure. A post-procedure chest x-ray is pending at the time of this note. The fluid will be sent for studies. Estimated blood loss is 0cc
[2023-04-15] MEDS ORDERED: Magnesium Replacement Protocol 1 EACH MISC MISCELLANE PRN (14:04)
--- NOTE | 2023-04-15 14:05 | XR ---
EXAMINATION TYPE: XR chest 1V portable DATE OF EXAM: 04/15/2023 COMPARISON: 04/14/2023 HISTORY: Post right thoracentesis TECHNIQUE: Single frontal view of the chest is obtained. FINDINGS: There is been a marked reduction in the right pleural effusion following thoracentesis. There is no p neumothorax. There is persistent partially consolidated focal opacity in the right upper lobe likely representing a pneumonic infiltrate. The left lung is clear. There is CABG surgery. The heart size is normal in the pulmonary vasculature does not appear grossly congested. IMPRESSION: 1. No pneumothorax following right-sided thoracentesis. 2. Marked reduction in the right pleural effusion following thoracentesis. No definite right pleural effusion persists. 3. Focal infiltrate in the right upper lobe.
[2023-04-15 14:55] LABS: Chol/HDL Ratio 3.35 Ratio; LDL Cholesterol,Calculated 65.3 mg/dL (0.0-131.0)
[2023-04-15] MEDS: MAGNESIUM SULFATE-D5W PMX 1 GM in DEXTROSE/WATER 1 100ML.BAG IVPB SCH (15:00)
[2023-04-15] MEDS: SODIUM CHLORIDE 0.9% 1,000 ML IV SCH (15:04)
--- NOTE | 2023-04-15 15:23 | P.CRDCN ---
History of Present Illness History of present illness: HISTORY OF PRESENTING ILLNESS This is a pleasant 82-year-old female past medical history significant for 4 vessel coronary bypass 2010 in [place], hypertension, diabetes pam litus, dyslipidemia, non-Hodgkin's lymphoma and obesity. She has not followed with a business systems analyst since she moved to [place] in 2013. We have been asked to see in consultation for elevated troponin. He presented to an outside hospital with complaints of shortness of breath. She was initially placed on BiPAP. When I saw her in the emergency department she was communicating appropriately. She was sitting up in bed and in no acute distress. She has a dense consolidation of the right lung. Pulmonary has seen her and started her on antibiotics. She denies chest pain. EKG reveals sinus tach with an underlying right bundle branch block. CT of the chest reveals a large right pleural effusion and right lower lobe atelectasis. Telemetry has been sinus rhythm. Laboratory data reviewed, WBC initially 19.5 down to 9.5, hemoglobin 13, platelets 159, sodium 128, potassium 5.1, creatinine 0.67, NT proBNP 8280, troponin 0.162, 0.234, 0.324. Current cardiac medications include lisinopril 40 mg daily, Coreg 6.25 mg twice a day, simvastatin 20 mg daily and aspirin 81 mg daily. She indicates she has not had any cardiac testing. Hospital records reviewed, no previous cardiac testing. REVIEW OF SYSTEMS At the time of my exam: CONSTITUTIONAL: Denies fever or chills. CARDIOVASCULAR: Complains of shortness of breath. Denies chest pain, orthopnea, PND or palpitations. RESPIRATORY: Denies cough. GASTROINTESTINAL: Denies abdominal pain, diarrhea, constipation, nausea or vomiting. MUSCULOSKELETAL: Denies myalgias. NEUROLOGIC: Denies numbness, tingling, headache or weakness. ENDOCRINE: Denies fatigue, weight change, polydipsia or polyurina. GENITOURINARY: Denies burning, hematuria or urgency with micturation. HEMATOLOGIC: Denies history of anemia or bleeding. PHYSICAL EXAMINATION Blood pressure 121/88 heart rate 82 afebrile and maintaining oxygen saturation on Bipap. CONSTITUTIONAL: No apparent distress. HEENT: Head is normocephalic. Pupils are equal, round. Sclerae anicteric. Mucous membranes of the mouth are moist. No JVD. No carotid bruit. CHEST EXAMINATION: Diminished bilaterally, scattered rhonchi on the right, no rales or wheezes. HEART EXAMINATION: Regular rate and rhythm. S1, S2 heard. No murmurs, gallops or rub. ABDOMEN: Soft, nontender. EXTREMITIES: 2+ peripheral pulses, no lower extremity edema and no calf tenderness. NEUROLOGIC EXAMINATION: Patient is awake, alert and oriented x3. ASSESSMENT Acute Hypoxic respiratory failure Troponin elevation, Type II myocardial infarction secondary to oxygen supply demand mismatch Coronary artery disease status post bypass grafting Leukocytosis Hypertension Dyslipidemia Diabetes mellitus Obesity PLAN Obtain 2-D echocardiogram and Doppler study to assess cardiac structure and function. Continue cardiac medications. No plans for coronary intervention. We will continue to follow and make recommendations accordingly. Thank you kindly for this consultation. Nurse Practitioner note has been reviewed, I agree with a documented findings and plan of care. Patient was seen and examined. Past Medical History Past Medical History: Coronary Artery Disease (CAD), Cancer (lymphoma, NHL 2012), Chest Pain / Angina, Diabetes Mellitus, Hyperlipidemia, Hypertension, Osteoarthritis (OA), Rheumatoid Arthritis (RA) Additional Past Medical History / Comment(s): hypothyroidism, neuropathy, lymphoma History of Any Multi-Drug Resistant Organisms: None Reported Past Surgical History: Coronary Bypass/CABG, Hysterectomy Additional Past Surgical History / Comment(s): thyroidectomy, Cataracts partial thyroidectomy Past Psychological History: Unable to Obtain Smoking Status: Former smoker Past Alcohol Use History: None Reported Past Drug Use History: None Reported Medications and Allergies Home Medications Medication Instructions Recorded Confirmed Type Aspirin EC [Ecotrin Low Dose] 81 mg PO DAILY 04/14/23 04/14/23 History Cholecalciferol [Vitamin D3 (25 25 mcg PO DAILY 04/14/23 04/14/23 History Mcg = 1000 Iu)] Cyanocobalamin (Vitamin B-12) 1,000 mcg PO DAILY 04/14/23 04/14/23 History [Vitamin B-12] Ferrous Sulfate [Feosol] 325 mg PO DAILY 04/14/23 04/14/23 History Fluticasone Nasal Sun [Flonase 1 spray EA NOSTRIL DAILY 04/14/23 04/14/23 History Nasal Sun] Levothyroxine Sodium [Synthroid] 200 mcg PO DAILY 04/14/23 04/14/23 History Meloxicam [Mobic] 7.5 mg PO DAILY 04/14/23 04/14/23 History Omeprazole 40 mg PO DAILY 04/14/23 04/14/23 History Simvastatin [Zocor] 20 mg PO HS 04/14/23 04/14/23 History carvediloL [Coreg] 6.25 mg PO BID 04/14/23 04/14/23 History glipiZIDE [Glucotrol] 5 mg PO BID 04/14/23 04/14/23 History lisinopriL 40 mg PO DAILY 04/14/23 04/14/23 History metFORMIN HCL 1,000 mg PO BID 04/14/23 04/14/23 History Allergies Allergy/AdvReac Type Severity Reaction Status Date / Time atorvastatin [From Lipitor] Allergy Unknown Verified 04/14/23 22:39 bisacodyl Allergy Unknown Verified 04/14/23 22:39 [From Dulcolax (bisacodyl)] carisoprodol [From Soma] Allergy Unknown Verified 04/14/23 22:39 morphine Allergy Vomiting Verified 04/14/23 22:39 orphenadrine Allergy Unknown Verified 04/14/23 22:39 pseudoephedrine Allergy Unknown Verified 04/14/23 22:39 [From Sudafed] tramadol [From Ultram] Allergy Unknown Verified 04/14/23 22:39 Physical Exam Vitals: Vital Signs Temp Pulse Pulse Resp BP BP Pulse Ox 04/15/23 14:52 93 L 04/15/23 14:00 82 28 H 121/88 100 04/15/23 13:00 75 32 H 104/56 98 04/15/23 12:00 81 32 H 108/57 98 04/15/23 11:55 99.1 F 80 24 138/67 99 04/15/23 11:49 97.6 F 84 34 H 116/83 98 04/15/23 11:03 04/15/23 07:59 04/15/23 07:49 98.6 F 100 24 119/65 94 L 04/15/23 06:10 93 24 121/63 98 04/15/23 04:00 93 24 97/59 98 04/15/23 03:45 04/15/23 00:45 04/15/23 00:00 97 24 116/59 98 04/14/23 21:59 04/14/23 21:51 98.8 F 104 H 12 121/62 98 FiO2 04/15/23 14:52 40 04/15/23 14:00 40 04/15/23 13:00 40 04/15/23 12:00 40 04/15/23 11:55 04/15/23 11:49 40 04/15/23 11:03 50 04/15/23 07:59 50 04/15/23 07:49 04/15/23 06:10 04/15/23 04:00 04/15/23 03:45 40 04/15/23 00:45 40 04/15/23 00:00 04/14/23 21:59 40 04/14/23 21:51 Intake and Output 04/15/23 04/15/23 04/15/23 06:59 14:59 22:59 Intake Total 354.833 74.099 Output Total 675 Balance -320.167 74.099 Intake: IV 270 Invasive Line 1 10 Invasive Line 2 30 Magnesium Sulfate-D5w Pmx 100 1 gm In Dextrose/Water 1 100ml.bag @ 100 mls/hr IVPB Q1H [facility] Rx#: [id number] Sodium Chloride 0.9% 1, 130 000 ml @ 130 mls/hr IV . Q7H42M [facility] Rx#:[id number] Intake, IV Titration 84.833 74.099 Amount Heparin Sod,Pork in 0.45% 84.833 74.099 NaCl 25,000 unit In 0.45 % NaCl 1 250ml.bag @ 10. 5992 UNITS/KG/HR 10 mls/ hr IV .Q24H [facility] Rx#: [id number] Output: Urine 675 Results 04/15/23 07:13 04/15/23 12:17 Cardiac Enzymes 04/14/23 04/14/23 04/15/23 Range/Units 22:18 22:18 01:59 AST 41 H (14-36) U/L Troponin I 0.162 H* 0.234 H* (0.000-0.034) ng/mL 04/15/23 04/15/23 Range/Units 07:13 07:13 AST 35 (14-36) U/L Troponin I 0.324 H* (0.000-0.034) ng/mL Coagulation 04/14/23 04/15/23 04/15/23 Range/Units 22:18 07:13 12:06 PT 11.6 (10.0-12.5) sec APTT 23.8 38.8 H 40.3 H (22.0-30.0) sec Lipids 04/15/23 Range/Units 07:13 Triglycerides 105.00 (0.00-149.00) mg/dL Cholesterol 123.00 (0.00-200.00) mg/dL HDL Cholesterol 36.70 L (40.00-60.00) mg/dL Cholesterol/HDL Ratio 3.35 Ratio CBC 04/14/23 04/15/23 Range/Units 22:18 07:13 WBC 19.5 H 9.5 (3.8-10.6) k/uL RBC 4.65 4.11 (3.80-5.40) m/uL Hgb 14.2 13.0 (11.4-16.0) gm/dL Hct 43.6 38.7 (34.0-46.0) % Plt Count 205 159 (150-450) k/uL Comprehensive Metabolic Panel 04/14/23 04/15/23 04/15/23 Range/Units 22:18 07:13 12:17 Sodium 125 L 127 L 128 L (137-145) mmol/L Potassium 5.3 H 5.3 H 5.1 (3.5-5.1) mmol/L Chloride 97 L 101 101 (98-107) mmol/L Carbon Dioxide 13 L 20 L 19 L (22-30) mmol/L BUN 15 18 H 19 H (7-17) mg/dL Creatinine 0.74 0.74 0.67 (0.52-1.04) mg/dL Glucose 226 H 191 H 156 H (74-99) mg/dL Calcium 8.4 8.1 L 8.0 L (8.4-10.2) mg/dL AST 41 H 35 (14-36) U/L ALT 22 21 (4-34) U/L Alkaline Phosphatase 55 52 (38-126) U/L Total Protein 6.6 6.1 L (6.3-8.2) g/dL Albumin 3.8 3.4 L (3.5-5.0) g/dL Current Medications Generic Name Dose Route Start Last Admin Trade Name Freq PRN Reason Stop Dose Admin Aspirin 81 mg 04/16/23 09:00 Aspirin 81 Mg PO DAILY [facility] Carvedilol 6.25 mg 02/10/24 17:30 Carvedilol 6.25 Mg Tab PO AC-BID [facility] Cholecalciferol 25 mcg 04/16/23 09:00 Cholecalciferol 25 Mcg (1000 Iu) Tablet PO DAILY [facility] Cyanocobalamin 1,000 mcg 04/16/23 09:00 Cyanocobalamin 500 Mcg Tab PO DAILY [facility] Dextrose/Water 25 ml 04/15/23 12:37 Dextrose 50% Syringe 50 Ml IVP PER PROTOCOL PRN Hypoglycemia Protocol Dextrose/Water 50 ml 04/15/23 12:37 Dextrose 50% Syringe 50 Ml IVP PER PROTOCOL PRN Hypoglycemia Protocol Ferrous Sulfate 325 mg 04/16/23 09:00 Ferrous Sulfate 325 Mg Tab PO DAILY [facility] Fluticasone Propionate 1 spray 04/16/23 09:00 Fluticasone 50mcg/Sun Nasal 16gm EA NOSTRIL DAILY [facility] Glipizide 5 mg 04/15/23 17:30 Glipizide 5 Mg Tab PO AC-[facility] Heparin Sodium (Porcine) 0 unit 04/15/23 08:22 04/15/23 15:03 Heparin Sodium 1,000 Un/Ml (10ml Vl) IV 2,350 unit PER PROTOCOL PRN Administration Low PTT Protocol Hydromorphone HCl 1 mg 04/14/23 23:44 Hydromorphone 1 Mg/Ml 1 Ml Syringe IVP Q4HR PRN Pain Azithromycin 500 mg/ Sodium 250 mls @ 250 mls/hr 04/15/23 22:00 Chloride IVPB 04/17/23 22:59 DAILY@2200 [facility] Protocol Heparin Sodium/Sodium Chloride 250 mls @ 10 mls/hr 04/14/23 23:45 04/15/23 15:00 25,000 unit/ Sodium Chloride IV 14.5 units/kg/hr .Q24H [facility] 13.68 mls/hr Titration Protocol 10.5992 UNITS/KG/HR Piperacillin Sod/Tazobactam 100 mls @ 25 mls/hr 04/15/23 10:00 04/15/23 10:25 Sod 3.375 gm/ Sodium Chloride IVPB 25 mls/hr Q8H [facility] Administration Protocol Vancomycin HCl 1,500 mg/ 500 mls @ 167 mls/hr 04/15/23 10:00 04/15/23 11:09 Sodium Chloride IVPB 167 mls/hr Q16H [facility] Administration Sodium Chloride 1,000 mls @ 130 mls/hr 04/15/23 14:00 04/15/23 15:04 Saline 0.9% IV 130 mls/hr .Q7H42M [facility] Administration Magnesium Sulfate/Dextrose 1 100 mls @ 100 mls/hr 04/15/23 14:15 04/15/23 15:00 gm/ IV Solution IVPB 04/15/23 16:14 100 mls/hr Q1H [facility] Administration Protocol Insulin Aspart 0 unit 04/15/23 17:30 Insulin Aspart (Novolog) 100 Unit/Ml Vial SQ ACHS [facility] Protocol Levothyroxine Sodium 200 mcg 04/16/23 06:30 Levothyroxine 100 Mcg Tab PO DAILY@0630 [facility] Lisinopril 40 mg 04/16/23 09:00 Lisinopril 20 Mg Tab PO DAILY [facility] Metformin HCl 1,000 mg 04/17/23 07:30 Metformin 500 Mg Tab PO AC-BID [facility] Miscellaneous Information 1 each 04/15/23 09:43 Rx Info: Iv Contrast Was Given 1 Each Misc MISCELLANE 04/17/23 09:43 DAILY PRN Per Protocol Miscellaneous Information 1 each 04/15/23 14:04 Magnesium Replacement Protocol 1 Each Misc MISCELLANE DAILY PRN Per Protocol Protocol Naloxone HCl 0.2 mg 04/14/23 22:08 Naloxone 0.4 Mg/Ml 1 Ml Vial IV Q2M PRN Opioid Reversal Nitroglycerin 0.4 mg 04/14/23 23:42 Nitroglycerin Sl Tabs 0.4 Mg Tab SUBLINGUAL Q5M PRN Chest Pain Simvastatin 20 Mg 20 mg 04/15/23 21:00 Tab PO HS [facility] Ondansetron HCl 4 mg 04/14/23 22:08 Ondansetron 4 Mg/2 Ml Vial IVP Q8HR PRN Nausea And Vomiting Pantoprazole Sodium 40 mg 04/16/23 07:30 Pantoprazole 40 Mg Tablet PO AC-BRKFST [facility] Intake and Output 04/15/23 04/15/23 04/15/23 06:59 14:59 22:59 Intake Total 354.833 74.099 Output Total 675 Balance -320.167 74.099 Intake: IV 270 Invasive Line 1 10 Invasive Line 2 30 Magnesium Sulfate-D5w Pmx 100 1 gm In Dextrose/Water 1 100ml.bag @ 100 mls/hr IVPB Q1H [facility] Rx#: [id number] Sodium Chloride 0.9% 1, 130 000 ml @ 130 mls/hr IV . Q7H42M [facility] Rx#:[id number] Intake, IV Titration 84.833 74.099 Amount Heparin Sod,Pork in 0.45% 84.833 74.099 NaCl 25,000 unit In 0.45 % NaCl 1 250ml.bag @ 10. 5992 UNITS/KG/HR 10 mls/ hr IV .Q24H [facility] Rx#: [id number] Output: Urine 675 04/15/23 07:13 04/15/23 12:17
--- NOTE | 2023-04-15 15:46 | HP ---
HISTORY AND PHYSICAL CHIEF COMPLAINT: Shortness of breath and respiratory failure. HISTORY OF PRESENT ILLNESS: This 82-year-old woman with a past medical history of including diabetes, hypertension, hyperlipidemia, non-Hodgkin lymphoma, rheumatoid arthritis, CAD, CABG, was not feeling well over the past several days. The patient initially had constipation. The patient presented to being transferred to [facility] for further evaluation and treatment. The patient also has hypotension. The patient also had significant right-sided pneumonia with pleural effusion. Dr. Parsons is following the patient closely. The patient is monitored in ICU at this time. There is no history of any fever, rigors, chills. PAST MEDICAL HISTORY: History of diabetes mellitus, hypertension, hyperlipidemia, rheumatoid arthritis, non- Hodgkin lymphoma, Rest of the history and chart was also reviewed. The patient is followed by in the outpatient setting. HOME MEDICATIONS: Reviewed, include lisinopril. Dose and rest of medications reviewed. ALLERGIES: Reviewed include Lipitor, rest of allergies noted. FAMILY HISTORY: No history of heart disease or strokes in the family. SOCIAL HISTORY: Previous history of smoking. REVIEW OF SYSTEMS: Fourteen-point review of systems negative except as mentioned earlier. PHYSICAL EXAMINATION: VITAL SIGNS: Pulse is 80, blood pressure 130/60, respirations 20. HEENT: Conjunctivae normal. NECK: No jugular venous distention. CARDIOVASCULAR: S1, S2. RESPIRATION: Diminished on the right side. Scattered rhonchi and expiratory wheezing. ABDOMEN: Soft, obese, nontender. No mass palpable. LEGS: No edema. No swelling. NERVOUS SYSTEM: No focal deficit. SKIN: No ulcer, rash, bleeding. LABORATORY DATA: Sodium 128, potassium 5.1. Troponin is 0.32. ASSESSMENT: 1. Shortness of breath, possibly right lower lobe pneumonia with significant pleural effusion with acute hypoxic respiratory failure and hypotension. 2. Troponin 0.32, possible acute [id number]-elevation myocardial infarction. 3. Hyponatremia. 4. History of coronary artery disease. 5. Coronary artery bypass graft. 6. Diabetes mellitus type 2. 7. Hypertension. 8. Hyperlipidemia. 9. History of degenerative joint disease. 10.History of rheumatoid arthritis. 11.History of non-Hodgkin's lymphoma. 12.Multiple complex medical issues. RECOMMENDATIONS AND DISCUSSION: Recommended to continue current management and continue current treatment, otherwise broad-spectrum IV antibiotics. The patient is on BiPAP at this time. Continue the current medications, possible pleural tap and further testing by Dr. Parsons. I would also recommend CT scan of the abdomen and pelvis once the patient's condition stabilizes for a full evaluation. CT scan of chest is personally reviewed and there is significant change in the right side. The fluid evaluation will give us more information. Otherwise, we will also continue to monitor the patient. 2D echo with Doppler and Cardiology evaluation also will be sought because of the high troponins. IV heparin is being given at this time. The prognosis is guarded. Discussed with the patient. Further recommendations to follow. See orders for further details. MMODL / IJN: [id number] / MTDD
[2023-04-15] MEDS: Simvastatin 20 MG Tab PO SCH (16:11)
[2023-04-15 16:20] LABS: Glucose,Whole Blood 161 mg/dL (70-110)
[2023-04-15] MEDS: carvediloL 6.25 MG TAB PO SCH (16:24)
[2023-04-15] MEDS: glipiZIDE 5 MG TAB PO SCH (16:24)
[2023-04-15] MEDS: INSULIN ASPART (NovoLOG) 100 UNIT/ML VIAL SQ SCH (16:35)
--- NOTE | 2023-04-15 16:46 | CA ---
Transthoracic Echo Report Name: Payton Connor Age: 82 Gender: F : 1940 Exam Date: 04/15/2023 14:57 Exam Location: [facility] Ht (in): 68 Wt (lb): 208 Ordering Physician: Payton Oliveros MD Attending/Referring Phys: [employer] Member Gen Tolbert RD Procedure CPT: Indications: chf Cardiac Hx: Technical Quality: Technically difficult study Contrast 1: Definity Total Dose (mL): 2 Contrast 2: Total Dose (mL): MEASUREMENTS (Male / Female) Normal Values 2D ECHO LV Diastolic Diameter PLAX 5.4 cm 4.2 - 5.9 / 3.9 - 5.3 cm LV Systolic Diameter PLAX 4.9 cm IVS Diastolic Thickness 1.1 cm 0.6 - 1.0 / 0.6 - 0.9 cm LVPW Diastolic Thickness 1.3 cm 0.6 - 1.0 / 0.6 - 0.9 cm LV Relative Wall Thickness 0.4 RV Internal Dim ED PLAX 2.7 cm LVOT Diameter 2.2 cm Aortic Root Diameter 2.7 cm LA Systolic Diameter LX 3.3 cm 3.0 - 4.0 / 2.7 - 3.8 cm LV Diastolic Volume MOD BP 91.6 cm??? 67 - 155 / 56 - 104 cm??? LV Systolic Volume MOD BP 58.2 cm??? 22 - 58 / 19 - 49 cm??? LV Ejection Fraction MOD BP 36.4 % >= 55 % LV Cardiac Index MOD BP 1175.7 cm???/min???m??? LV Diastolic Volume MOD 4C 91.3 cm??? LV Systolic Volume MOD 4C 66.4 cm??? LV Ejection Fraction MOD 4C 27.2 % LV Cardiac Index MOD 4C 874.4 cm???/min???m??? LV Diastolic Length 4C 7.9 cm LV Systolic Length 4C 7.5 cm LV Diastolic Volume MOD 2C 88.6 cm??? LV Systolic Volume MOD 2C 50.3 cm??? LV Ejection Fraction MOD 2C 43.3 % LV Cardiac Index MOD 2C 1350.1 cm???/min???m??? LV Diastolic Length 2C 8.3 cm LV Systolic Length 2C 7.6 cm LA Volume 52.6 cm??? 18 - 58 / 22 - 52 cm??? LA Volume Index 24.4 cm???/m??? 16 - 28 cm???/m??? DOPPLER AV Peak Velocity 112.6 cm/s AV Peak Gradient 5.1 mmHg AV Mean Velocity 81.4 cm/s AV Mean Gradient 3.0 mmHg AV Velocity Time Integral 23.1 cm LVOT Peak Velocity 77.3 cm/s LVOT Peak Gradient 2.4 mmHg LVOT Velocity Time Integral 15.6 cm LVOT Stroke Volume 58.2 cm??? LVOT Stroke Volume Index 28.0 ml/m??? LVOT Cardiac Index 2050.6 cm???/min???m??? AV Area Cont Eq vti 2.5 cm??? AV Area Cont Eq pk 2.6 cm??? MV Peak Velocity 124.8 cm/s MV Peak Gradient 6.2 mmHg MV Mean Velocity 58.1 cm/s MV Mean Gradient 1.8 mmHg MV Velocity Time Integral 30.8 cm MR Peak Velocity 197.4 cm/s MR Peak Gradient 15.6 mmHg Mitral E Point Velocity 79.1 cm/s Mitral A Point Velocity 118.3 cm/s Mitral E to A Ratio 0.7 MV Deceleration Time 314.7 ms TR Peak Velocity 237.1 cm/s TR Peak Gradient 22.5 mmHg PV Peak Velocity 87.8 cm/s PV Peak Gradient 3.1 mmHg FINDINGS Left Ventricle Mildly increased LV size. Mild concentric LVH. Left ventricular ejection fraction is estimated at 25-30 %. Mid to distal infer-lateral and lateral wall hypokinesia. Apical and infero-apical wall hypokinesia. Right Ventricle Normal right ventricular size. Right Atrium Normal right atrial size. Left Atrium Mild left atrial dilatation. L volume index= 25ml/m2 Mitral Valve Mild to moderate mitral leaflet calcification. Mild MR. Aortic Valve Mild to moderate AV calcification. No aortic regurgitation. No aortic stenosis. Tricuspid Valve Structurally normal tricuspid valve. Pulmonic Valve Pulmonic valve not well visualized. Mild to moderate PI. Pericardium Not visualized well however grossly normal. Aorta Normal size aortic root. CONCLUSIONS Left ventricular ejection fraction is estimated at 25-30 %. Mildly increased LV size. Mid to distal infer-lateral and lateral wall hypokinesia. Apical and infero-apical wall hypokinesia. No pericardial effusion Previewed by: Dr Paul Wheeler (Electronically Signed) Final Date: 15 April 2023 16:46
[2023-04-15 20:16] LABS: Glucose,Whole Blood 123 mg/dL (70-110)
[2023-04-15] MEDS: SODIUM CHLORIDE 0.65% NASAL SPRAY 44 ML BTL NASAL SCH (20:16)
[2023-04-15] MEDS: AZITHROMYCIN 500 MG in SODIUM CHLORIDE 0.9% 250 ML IVPB SCH (20:24)
[2023-04-15 22:52] LABS: Appearance,BF Bloody (Clear)
[2023-04-15 22:55] LABS: Glucose, BF Source Pleural Fluid; Glucose, Body Fluid 163 mg/dL; T. Protein, Body Fluid Source Pleural Fluid; Total Protein, Body Fluid >3600 mg/dL
[2023-04-16 04:17] LABS: Mean Platelet Volume 8.4; Platelet Count 153 k/uL (150-450)
[2023-04-16 05:48] LABS: African American GFR (CKD) >90 (>60 ml/min/1.73 sqM); Anion Gap 2 mmol/L; Blood Urea Nitrogen 15 mg/dL (7-17); Carbon Dioxide 22 mmol/L (22-30); Chloride 104 mmol/L (98-107); Glucose 171 mg/dL (74-99); Non-African American GFR(CKD) 83 (>60 ml/min/1.73 sqM); Potassium 4.6 mmol/L (3.5-5.1); Sodium 128 mmol/L (137-145)
[2023-04-16 06:03] LABS: HCT 37.8 % (34.0-46.0); HGB 12.5 gm/dL (11.4-16.0); MCH 31.3 pg (25.0-35.0); MCHC 33.1 g/dL (31.0-37.0); MCV 94.5 fL (80.0-100.0); Platelet Count 153 k/uL (150-450); RBC 3.99 m/uL (3.80-5.40); RDW 13.5 % (11.5-15.5); WBC 13.2 k/uL (3.8-10.6)
[2023-04-16] MEDS: PANTOPRAZOLE 40 MG TABLET PO SCH (06:52)
[2023-04-16] MEDS: LEVOTHYROXINE 100 MCG TAB PO SCH (06:52)
[2023-04-16 06:53] LABS: Glucose,Whole Blood 183 mg/dL (70-110)
--- NOTE | 2023-04-16 06:57 | XR ---
EXAMINATION TYPE: XR chest 1V portable DATE OF EXAM: 04/16/2023 COMPARISON: 04/15/2023 HISTORY: Shortness of breath TECHNIQUE: Single frontal view of the chest is obtained. FINDINGS: There has been prior CABG surgery. The consolidated density in the right upper lobe appears somewhat diminished but there is diffuse int erstitial opacity in the right lung which appears slightly worse in the interval and there is a small but increasing right pleural effusion. The left lung remains stable. The heart size is normal. The osseous structures are intact. IMPRESSION: Acute cardiopulmonary disease primarily involving the right lung as described above.
[2023-04-16] MEDS: lisinopriL 20 MG TAB PO SCH (09:18)
[2023-04-16] MEDS: FLUTICASONE 50MCG/SPRAY NASAL 16GM EA NOSTRIL SCH (09:18)
[2023-04-16] MEDS: CHOLECALCIFEROL 25 MCG (1000 IU) TABLET PO SCH (09:18)
[2023-04-16] MEDS: CYANOCOBALAMIN 500 MCG TAB PO SCH (09:18)
[2023-04-16] MEDS: ASPIRIN 81 MG PO SCH (09:18)
[2023-04-16] MEDS: FERROUS SULFATE 325 MG TAB PO SCH (09:18)
[2023-04-16 11:15] LABS: Glucose,Whole Blood 170 mg/dL (70-110)
--- NOTE | 2023-04-16 11:57 | P.PN ---
Subjective Progress Note Date: 04/16/23 This is a 82-year-old female patient was currently being seen in the emergency department. The patient arrived to our hospital yesterday evening and the patient is currently being seen in the ICU, currently on a BiPAP at a pressure of 12 or 6 cm of water and FiO2 of 50%. Her breathing is labored while on the BiPAP and she is still tachypneic and she is able to generate a tidal volume around 450 while on the BiPAP. The patient initially presented to [facility] for shortness of breath. According to the family, the patient was having issues with constipation and she was taking laxatives at home. She was also having shortness of breath for the past 3 days. She refused to seek any medical attention. Denies having any abdominal pain. In the emergency, she was in acute respiratory distress and she was tachypneic and using accessory muscles of breathing. She has wheezing. She was given Xopenex. Her heart rate was around 130 and she was diaphoretic. She was given Lasix 40 mg IV and she was given also a dose of Solu-Medrol and initially she was placed on a nonrebreather and subsequently she was switched to a BiPAP. Noted the patient is known to have coronary artery disease. She has undergone previous bypass surgery in 2009. She also has history of CHF, and she has been followed by oncology regarding previous history of non-Hodgkin's lymphoma and according to her disease is in remission. She is also known to have diabetes mellitus and hyperlipidemia and she is obese. For now, the patient remains on a BiPAP. Triple-lumen catheter was inserted in the other hospital as the patient was briefly hypotensive. She was given Rocephin and Zithromax. I reviewed the chest x-ray from today and the patient has a very dense and extensive consolidat ion involving the entire right lung and the left lung remains clear from her airspace disease. There is obvious worsening in the opacification of the right hemithorax at this point. The patient is arousable and awake. Initial white cell count was 19.5 dropped down to 9.5. Hemoglobin is at 14.2 dropped down to 13. Sodium level is at 127, potassium is at 5.3, BUN is 18 with a creatinine of 0.7. Troponin is at 0.10.2 and 0.3 respectively x 3. UA showing +1 protein, negative for any infection. The patient has not had a viral panel checked at this point. She is currently on IV heparin. On 06/15/2023, the patient is doing well. No specific complaints. She is off the BiPAP. Chest x-ray is still showing some residual pleural effusion on the right and the residual inflammatory changes in the right lung consistent with a pneumonia.The patient underwent a large-volume thoracentesis yesterday and the fluid analysis was not exudate based on elevated protein level. The white cell count was also mildly elevated at 1625, 64% lymphocytes. Cultures are still pending. Cytology still pending. Patient remains on a combination of Zosyn Zithromax and vancomycin. Echocardiogram was also done and the patient was found to have an EF of around 25 to 30% and the patient had inferolateral hy pokinesis. There was segmental wall motion abnormalities. She is awake and she is communicating. Procalcitonin level was at 0.48. The rest of the labs from today shows a white cell count of 13, hemoglobin of 12 and a platelet count of 153, sodium levels of 128, potassium is at 4.6, BUN is at 50 mg of 0.6. Troponin peaked at 0.3. Objective - Vital Signs Vital signs: Vital Signs Temp 97.8 F 04/16/23 04:00 Pulse 105 H 04/16/23 07:00 Resp 28 H 04/16/23 07:00 BP 134/70 04/16/23 07:00 Pulse Ox 95 04/16/23 07:00 FiO2 40 04/15/23 18:00 Intake & Output 04/15/23 04/16/23 04/16/23 18:59 06:59 18:59 Intake Total 8923.976 9049.396 130 Output Total 4625 1365 130 Balance -3034.700 1361.396 0 Weight 94.347 kg 95 kg Intake: IV 1190 2531 130 Azithromycin 500 mg In 250 Sodium Chloride 0.9% 250 ml @ 250 mls/hr IVPB DAILY@2200 [facility] Rx#: [id number] Invasive Line 1 20 30 Invasive Line 2 60 90 Magnesium Sulfate-D5w Pmx 200 1 gm In Dextrose/Water 1 100ml.bag @ 100 mls/hr IVPB Q1H [facility] Rx#: [id number] Piperacillin-Tazobactam 3 100 .375 gm In Sodium Chloride 0.9% 100 ml @ 25 mls/hr IVPB Q8H [facility] Rx#: [id number] Sodium Chloride 0.9% 1, 910 1560 130 000 ml @ 130 mls/hr IV . Q7H42M [facility] Rx#:[id number] Vancomycin 1,500 mg In 501 Sodium Chloride 0.9% 500 ml 500 ml @ 167 mls/hr IVPB Q16H [facility] Rx#: [id number] Intake, IV Titration 160.300 195.396 Amount Heparin Sod,Pork in 0.45% 160.300 195.396 NaCl 25,000 unit In 0.45 % NaCl 1 250ml.bag @ 10. 5992 UNITS/KG/HR 10 mls/ hr IV .Q24H [facility] Rx#: [id number] Oral 240 Output: Drainage 1600 Right Chest 1600 Urine 1325 1365 130 Other 1700 Other: Voiding Method Indwelling Catheter Indwelling Catheter # Bowel Movements 0 0 - Exam Patient is currently breathing comfortably on 3 L of oxygen by nasal cannula Head exam was generally normal. There was no scleral icterus or corneal arcus. Mucous membranes were moist. Neck was supple and without jugular venous distension, thyromegaly, or carotid bruits. Carotids were easily palpable bilaterally. There was no adenopathy. Lung sounds are diminished specially on the right compared to the last few scattered rhonchi scattered expiratory wheezes. Improved air entry on the right Cardiac exam revealed the PMI to be normally situated and sized. The rhythm was regular and no extrasystoles were noted during several minutes of auscultation. The first and second heart sounds were normal and physiologic splitting of the second heart sound was noted. There were no murmurs, rubs, clicks, or gallops. Abdominal exam revealed normal bowel sounds. The abdomen was soft, non-tender, and without masses, organomegaly, or appreciable enlargement of the abdominal aorta. Examination of the extremities revealed easily palpable radial, femoral and pedal pulses. There was no cyanosis, clubbing or edema. Noted the patient has a triple-lumen catheter in the right femoral vein. Examination of the skin revealed no evidence of significant rashes, suspicious appearing nevi or other concerning lesions. Neurologic is able to move all extremities and there is no focal neurological d eficit at this point in time. She is able to communicate and follow simple commands. - Labs CBC & Chem 7: 04/16/23 05:15 04/16/23 05:15 Labs: Abnormal Lab Results - Last 24 Hours (Table) 04/15/23 04/15/23 04/15/23 Range/Units 07:13 07:13 10:19 WBC (3.8-10.6) k/uL APTT (22.0-30.0) sec ABG pO2 (83-108) mmHg ABG O2 Saturation (94-97) % Sodium (137-145) mmol/L Carbon Dioxide (22-30) mmol/L BUN (7-17) mg/dL Glucose (74-99) mg/dL POC Glucose (mg/dL) (70-110) mg/dL Calcium (8.4-10.2) mg/dL Troponin I 0.324 H* (0.000-0.034) ng/mL HDL Cholesterol 36.70 L (40.00-60.00) mg/dL Procalcitonin 0.48 H (0.02-0.09) ng/mL Fluid Appearance (Clear) 04/15/23 04/15/23 04/15/23 Range/Units 10:34 11:48 12:06 WBC (3.8-10.6) k/uL APTT 40.3 H (22.0-30.0) sec ABG pO2 114 H (83-108) mmHg ABG O2 Saturation 98.7 H (94-97) % Sodium (137-145) mmol/L Carbon Dioxide (22-30) mmol/L BUN (7-17) mg/dL Glucose (74-99) mg/dL POC Glucose (mg/dL) 166 H (70-110) mg/dL Calcium (8.4-10.2) mg/dL Troponin I (0.000-0.034) ng/mL HDL Cholesterol (40.00-60.00) mg/dL Procalcitonin (0.02-0.09) ng/mL Fluid Appearance (Clear) 04/15/23 04/15/23 04/15/23 Range/Units 12:17 13:58 16:20 WBC (3.8-10.6) k/uL APTT (22.0-30.0) sec ABG pO2 (83-108) mmHg ABG O2 Saturation (94-97) % Sodium 128 L (137-145) mmol/L Carbon Dioxide 19 L (22-30) mmol/L BUN 19 H (7-17) mg/dL Glucose 156 H (74-99) mg/dL POC Glucose (mg/dL) 161 H (70-110) mg/dL Calcium 8.0 L (8.4-10.2) mg/dL Troponin I (0.000-0.034) ng/mL HDL Cholesterol (40.00-60.00) mg/dL Procalcitonin (0.02-0.09) ng/mL Fluid Appearance Bloody A (Clear) 04/15/23 04/15/23 04/16/23 Range/Units 20:14 21:05 03:35 WBC (3.8-10.6) k/uL APTT 52.5 H 43.9 H (22.0-30.0) sec ABG pO2 (83-108) mmHg ABG O2 Saturation (94-97) % Sodium (137-145) mmol/L Carbon Dioxide (22-30) mmol/L BUN (7-17) mg/dL Glucose (74-99) mg/dL POC Glucose (mg/dL) 123 H (70-110) mg/dL Calcium (8.4-10.2) mg/dL Troponin I (0.000-0.034) ng/mL HDL Cholesterol (40.00-60.00) mg/dL Procalcitonin (0.02-0.09) ng/mL Fluid Appearance (Clear) 04/16/23 04/16/23 04/16/23 Range/Units 05:15 05:15 06:52 WBC 13.2 H (3.8-10.6) k/uL APTT (22.0-30.0) sec ABG pO2 (83-108) mmHg ABG O2 Saturation (94-97) % Sodium 128 L (137-145) mmol/L Carbon Dioxide (22-30) mmol/L BUN (7-17) mg/dL Glucose 171 H (74-99) mg/dL POC Glucose (mg/dL) 183 H (70-110) mg/dL Calcium 8.0 L (8.4-10.2) mg/dL Troponin I (0.000-0.034) ng/mL HDL Cholesterol (40.00-60.00) mg/dL Procalcitonin (0.02-0.09) ng/mL Fluid Appearance (Clear) Microbiology - Last 24 Hours (Table) 04/14/23 22:18 Blood Culture Gram Stain - Preliminary Blood Assessment and Plan Plan: Acute hypoxic respiratory failure and the patient is currently off the BiPAP on 3 L of oxygen by nasal cannula Large right-sided pleural effusion, likely parapneumonic, exudate, thoracentesis was done approximately 2 L of fluid was removed. Awaiting fluid cytology and cultures CHF with impaired LV function with an EF of around 25 to 30% along with segmental wall motion abnormalities Abnormal troponins, rule out acute non-ST segment elevation myocardial infarction Shortness of breath secondary to above Acute leukocytosis, improving Hypotension, improved with fluids, currently on Lopressor and the patient has triple-lumen cath in the right femoral vein Obesity with a BMI of 31.6 History of non-Hodgkin's lymphoma History of coronary artery disease with previous bypass surgery Diabetes mellitus Hypertension Rheumatoid arthritis Degenerative arthritis Troponin leak, likely secondary to type II ischemia related to extensive right lung pneumonia Plan Continue patient on nasal cannula and discontinue the BiPAP Check procalcitonin level, mildly elevated Will cover the patient with a combination of Zosyn, vancomycin and Zithromax Check blood cultures IV fluids to be kept down to KVO Obtain echocardiogram was noted Continue Coreg Continue aspirin Home medications have been resumed Discontinue IV heparin and put the patient on subcu heparin Cardiology consultation Will continue to follow.
[2023-04-16] MEDS ORDERED: IOPAMIDOL CONTRAST (ORAL USE) VIAL PO PRN (13:28)
--- NOTE | 2023-04-16 14:45 | P.PN ---
Subjective Progress Note Date: 04/16/23 Progress note 04/16/2023 Patient is doing well from cardiovascular standpoint. She is in sinus rhythm on telemetry heart rate 86 beats minute, blood pressure 110/59, her blood cultures grew coagulase-negative staph which could be a potential contaminant. She is covered with empirical antibiotics at this time. For her mild elevation of troponin which was mostly related to demand supply mismatch, she received 24 hours of IV heparin. HISTORY OF PRESENTING ILLNESS This is a pleasant 82-year-old female past medical history significant for 4 vessel coronary bypass 2010 in [place], hypertension, diabetes mellitus, dyslipidemia, non-Hodgkin's lymphoma and obesity. She has not followed with a barker operator since she moved to [place] in 2013. We have been asked to see in consultation for elevated troponin. He presented to an outside hospital with complaints of shortness of breath. She was initially placed on BiPAP. When I saw her in the emergency department she was communicating appropriately. She was sitting up in bed and in no acute distress. She has a dense consolidation of the right lung. Pulmonary has seen her and started her on antibiotics. She denies chest pain. EKG reveals sinus tach with an underlying right bundle branch block. CT of the chest reveals a large right pleural effusion and right lower lobe atelectasis. Telemetry has been sinus rhythm. Laboratory data reviewed, WBC initially 19.5 down to 9.5, hemoglobin 13, platelets 159, sodium 128, potassium 5.1, creatinine 0.67, NT proBNP 8280, troponin 0.162, 0.234, 0.324. Current cardiac medications include lisinopril 40 mg daily, Coreg 6.25 mg twice a day, simvastatin 20 mg daily and aspirin 81 mg daily. She indicates she has not had any cardiac testing. Hospital records reviewed, no previous cardiac testing. REVIEW OF SYSTEMS At the time of my exam: CONSTITUTIONAL: Denies fever or chills. CARDIOVASCULAR: Complains of shortness of breath. Denies chest pain, orthopnea, PND or palpitations. RESPIRATORY: Denies cough. GASTROINTESTINAL: Denies abdominal pain, diarrhea, constipation, nausea or vomiting. MUSCULOSKELETAL: Denies myalgias. NEUROLOGIC: Denies numbness, tingling, headache or weakness. ENDOCRINE: Denies fatigue, weight change, polydipsia or polyurina. GENITOURINARY: Denies burning, hematuria or urgency with micturation. HEMATOLOGIC: Denies history of anemia or bleeding. PHYSICAL EXAMINATION Blood pressure 121/88 heart rate 82 afebrile and maintaining oxygen saturation on Bipap. CONSTITUTIONAL: No apparent distress. HEENT: Head is normocephalic. Pupils are equal, round. Sclerae anicteric. Mucous membranes of the mouth are moist. No JVD. No carotid bruit. CHEST EXAMINATION: Diminished bilaterally, scattered rhonchi on the right, no rales or wheezes. HEART EXAMINATION: Regular rate and rhythm. S1, S2 heard. No murmurs, gallops or rub. ABDOMEN: Soft, nontender. EXTREMITIES: 2+ peripheral pulses, no lower extremity edema and no calf tenderness. NEUROLOGIC EXAMINATION: Patient is awake, alert and oriented x3. ASSESSMENT Acute Hypoxic respiratory failure Troponin elevation, Type II myocardial infarction secondary to oxygen supply demand mismatch Coronary artery disease status post bypass grafting Leukocytosis Hypertension Dyslipidemia Diabetes mellitus Obesity PLAN Obtain 2-D echocardiogram Continue aspirin, Coreg 6.25 mg twice daily, simvastatin Based on echo findings, will decide if patient needs inpatient or outpatient ischemic evaluation. Objective - Vital Signs Vital signs: Vital Signs Temp 98.2 F 04/16/23 12:00 Pulse 81 04/16/23 12:00 Resp 16 04/16/23 12:00 BP 110/63 04/16/23 12:00 Pulse Ox 95 04/16/23 12:00 FiO2 40 04/15/23 18:00 Intake & Output 04/15/23 04/16/23 04/16/23 18:59 06:59 18:59 Intake Total 7941.106 8583.396 330 Output Total 4625 1365 430 Balance -3034.700 1361.396 -100 Weight 94.347 kg 95 kg Intake: IV 1190 2531 230 Azithromycin 500 mg In 250 Sodium Chloride 0.9% 250 ml @ 250 mls/hr IVPB DAILY@2200 [facility] Rx#: [id number] Invasive Line 1 20 30 Invasive Line 2 60 90 Magnesium Sulfate-D5w Pmx 200 1 gm In Dextrose/Water 1 100ml.bag @ 100 mls/hr IVPB Q1H [facility] Rx#: [id number] Piperacillin-Tazobactam 3 100 100 .375 gm In Sodium Chloride 0.9% 100 ml @ 25 mls/hr IVPB Q8H [facility] Rx#: [id number] Sodium Chloride 0.9% 1, 910 1560 130 000 ml @ 10 mls/hr IV . Q24H [facility] Rx#:[id number] Vancomycin 1,500 mg In 501 Sodium Chloride 0.9% 500 ml 500 ml @ 167 mls/hr IVPB Q16H [facility] Rx#: [id number] Intake, IV Titration 160.300 195.396 Amount Heparin Sod,Pork in 0.45% 160.300 195.396 NaCl 25,000 unit In 0.45 % NaCl 1 250ml.bag @ 10. 5992 UNITS/KG/HR 10 mls/ hr IV .Q24H [facility] Rx#: [id number] Oral 240 100 Output: Drainage 1600 Right Chest 1600 Urine 1325 1365 430 Other 1700 Other: Voiding Method Indwelling Catheter Indwelling Catheter Indwelling Catheter # Bowel Movements 0 0 - Labs CBC & Chem 7: 04/16/23 05:15 04/16/23 05:15 Labs: Abnormal Lab Results - Last 24 Hours (Table) 04/15/23 04/15/23 04/15/23 Range/Units 07:13 10:19 13:58 WBC (3.8-10.6) k/uL APTT (22.0-30.0) sec Sodium (137-145) mmol/L Glucose (74-99) mg/dL POC Glucose (mg/dL) (70-110) mg/dL Hemoglobin A1c (<=6.0) % Calcium (8.4-10.2) mg/dL HDL Cholesterol 36.70 L (40.00-60.00) mg/dL Procalcitonin 0.48 H (0.02-0.09) ng/mL Fluid Appearance Bloody A (Clear) 04/15/23 04/15/23 04/15/23 Range/Units 16:20 20:14 21:05 WBC (3.8-10.6) k/uL APTT 52.5 H (22.0-30.0) sec Sodium (137-145) mmol/L Glucose (74-99) mg/dL POC Glucose (mg/dL) 161 H 123 H (70-110) mg/dL Hemoglobin A1c (<=6.0) % Calcium (8.4-10.2) mg/dL HDL Cholesterol (40.00-60.00) mg/dL Procalcitonin (0.02-0.09) ng/mL Fluid Appearance (Clear) 04/16/23 04/16/23 04/16/23 Range/Units 03:35 03:35 05:15 WBC 13.2 H (3.8-10.6) k/uL APTT 43.9 H (22.0-30.0) sec Sodium (137-145) mmol/L Glucose (74-99) mg/dL POC Glucose (mg/dL) (70-110) mg/dL Hemoglobin A1c 6.1 H (<=6.0) % Calcium (8.4-10.2) mg/dL HDL Cholesterol (40.00-60.00) mg/dL Procalcitonin (0.02-0.09) ng/mL Fluid Appearance (Clear) 04/16/23 04/16/23 04/16/23 Range/Units 05:15 06:52 11:14 WBC (3.8-10.6) k/uL APTT (22.0-30.0) sec Sodium 128 L (137-145) mmol/L Glucose 171 H (74-99) mg/dL POC Glucose (mg/dL) 183 H 170 H (70-110) mg/dL Hemoglobin A1c (<=6.0) % Calcium 8.0 L (8.4-10.2) mg/dL HDL Cholesterol (40.00-60.00) mg/dL Procalcitonin (0.02-0.09) ng/mL Fluid Appearance (Clear) Microbiology - Last 24 Hours (Table) 04/14/23 22:18 Blood Culture Gram Stain - Preliminary Blood Blood Culture - Preliminary Coagulase Negative Staph 04/15/23 13:58 Gram Stain - Preliminary Pleural Fluid
[2023-04-16 16:22] LABS: Glucose,Whole Blood 138 mg/dL (70-110)
[2023-04-16] MEDS: HEPARIN SODIUM,PORCINE 5,000 UNIT/ML 1 ML VIAL SQ SCH (16:25)
[2023-04-16] MEDS: FUROSEMIDE 10 MG/ML 4 ML VIAL IV STA (19:19)
[2023-04-16 20:04] LABS: Glucose,Whole Blood 108 mg/dL (70-110)
[2023-04-16] MEDS: SIMVASTATIN 20 MG PO SCH (20:30)
--- NOTE | 2023-04-16 23:58 | PN ---
PROGRESS NOTE DATE OF SERVICE: 04/16/2023 SUBJECTIVE: This is an 82-year-old woman, who was admitted with shortness of breath and a possible right lower pneumonia. The patient also had pleural effusion and thoracocentesis done by Dr. Parsons yesterday. The patient is extubated. The patient is mildly confused, but closely monitored. Chest x-ray showed bilateral infiltrates. PAST MEDICAL HISTORY: Reviewed. REVIEW OF SYSTEMS: 14-point review is negative as mentioned earlier. PHYSICAL EXAMINATION: VITAL SIGNS: Pulse is 81, blood pressure 110/60, respirations 16. CHEST: Few scattered rhonchi. ABDOMEN: Soft. NERVOUS SYSTEM: Nonfocal. LABORATORY DATA: Noted. ASSESSMENT: 1. Shortness of breath, possible right lower lobe pneumonia with pleural effusion with acute hypoxic respiratory failure and hypotension, status post mechanical ventilation. 2. Troponin of 0.32. Possible acute [id number] elevation myocardial infarction. 3. Hyponatremia. 4. History of coronary artery disease. 5. Coronary artery bypass grafting. 6. Diabetes. 7. Hypertension. 8. Hyperlipidemia. 9. Multiple medical issues. Recommended to continue current management and symptomatic treatment. Cultures are showing only coag-negative staph. I have recommended to repeat cultures and I would also recommend CT of the abdomen and pelvis also to complete the workup as well. Further recommendations to follow. MMODL / IJN: [id number] /
[2023-04-17 06:00] LABS: Basophils % (A) 0 %; Eosinophils # (A) 0.4 k/uL (0-0.7); Eosinophils % (A) 4 %; HCT 38.4 % (34.0-46.0); HGB 12.8 gm/dL (11.4-16.0); Lymphocytes # (A) 1.7 k/uL (1.0-4.8); Lymphocytes % (A) 20 %; MCH 31.6 pg (25.0-35.0); MCHC 33.4 g/dL (31.0-37.0); MCV 94.8 fL (80.0-100.0); Monocytes # (A) 0.5 k/uL (0-1.0); Monocytes % (A) 6 %; Neutrophils % (A) 69 %; Platelet Count 153 k/uL (150-450); RBC 4.05 m/uL (3.80-5.40); RDW 13.6 % (11.5-15.5); WBC 8.7 k/uL (3.8-10.6)
[2023-04-17 06:07] LABS: ALT 18 U/L (4-34); AST 33 U/L (14-36); African American GFR (CKD) >90 (>60 ml/min/1.73 sqM); Albumin 3.1 g/dL (3.5-5.0); Alkaline Phosphatase 53 U/L (38-126); Anion Gap 7 mmol/L; Blood Urea Nitrogen 13 mg/dL (7-17); Calcium 8.7 mg/dL (8.4-10.2); Carbon Dioxide 21 mmol/L (22-30); Chloride 103 mmol/L (98-107); Glucose 145 mg/dL (74-99); Non-African American GFR(CKD) 83 (>60 ml/min/1.73 sqM); Potassium 4.3 mmol/L (3.5-5.1); Sodium 131 mmol/L (137-145); Total Bilirubin 0.6 mg/dL (0.2-1.3); Total Protein 5.7 g/dL (6.3-8.2)
[2023-04-17 06:52] LABS: Glucose,Whole Blood 164 mg/dL (70-110)
[2023-04-17 09:22] LABS: African American GFR (CKD) >90 (>60 ml/min/1.73 sqM); Anion Gap 8 mmol/L; Blood Urea Nitrogen 13 mg/dL (7-17); Calcium 8.6 mg/dL (8.4-10.2); Carbon Dioxide 21 mmol/L (22-30); Chloride 102 mmol/L (98-107); Glucose 194 mg/dL (74-99); Non-African American GFR(CKD) 83 (>60 ml/min/1.73 sqM); Sodium 131 mmol/L (137-145)
--- NOTE | 2023-04-17 09:43 | XR ---
EXAMINATION TYPE: XR chest 1V portable DATE OF EXAM: 04/17/2023 Comparison: 04/16/2023 Clinical History: 82-year-old female chf Findings: Median sternotomy wires with postoperative clips. Leftward patient rotation altered normal cardiac an d mediastinal contours. Heart upper limits of normal in size. Ongoing patchy pleural parenchymal opac ity throughout the right side of the chest. Impression: Post CABG changes and unchanged patchy pleural-parenchymal opacities right hemithorax.
--- NOTE | 2023-04-17 09:46 | PN ---
PROGRESS NOTE SUBJECTIVE: Payton is an 82-year-old lady, who was admitted to the ICU with respiratory failure. Cardiology had been consulted because of elevated troponin secondary to supply-demand mismatch. She has known CAD and had prior bypass surgery. An echocardiogram on this admission revealed severe LV systolic dysfunction with an ejection fraction of 25% to 30%. MEDICATIONS: Current medications include: 1. Coreg 6.25 b.i.d. 2. Insulin. 3. Zestril 40 mg daily. 4. Simvastatin 20 mg daily. 5. Aspirin. 6. Zithromax. OBJECTIVE: GENERAL: Comfortable at rest. VITAL SIGNS: Stable. O2 saturation is 94% on 2 L. NECK: There is no jugular venous distention. Carotid upstroke is diminished. There is no bruit. CHEST: Reveals diminished air entry at the bases. HEART: Reveals first and second heart sounds. No gallop. Has a systolic murmur at the apex. ABDOMEN: Soft. EXTREMITIES: Did not reveal any edema. Peripheral pulses are felt. LABORATORY DATA: Labs show a hemoglobin of 12.8, platelet count is 150, potassium is 4.3, and creatinine is 0.6. ASSESSMENT: Coronary artery disease, status post CABG with troponin elevation secondary to supply- demand mismatch; acute hypoxic respiratory failure; sepsis; diabetes; and dyslipidemia. PLAN: I will continue her on her current medications. MMODL / IJN: [id number] /
[2023-04-17] MEDS: VANCOMYCIN TROUGH DUE 1 EACH MISC MISCELLANE ONE (10:20)
[2023-04-17 11:27] LABS: Glucose,Whole Blood 127 mg/dL (70-110)
--- NOTE | 2023-04-17 12:34 | P.PN ---
Subjective Progress Note Date: 04/17/23 Principal diagnosis: Acute hypoxic respiratory failure secondary to congestive heart failure with systolic dysfunction and large right-sided parapneumonic pleural effusion This is a 82-year-old female patient was currently being seen in the emergency department. The patient arrived to our hospital yesterday evening and the patient is currently being seen in the ICU, currently on a BiPAP at a pressure of 12 or 6 cm of water and FiO2 of 50%. Her breathing is labored while on the BiPAP and she is still tachypneic and she is able to generate a tidal volume around 450 while on the BiPAP. The patient initially presented to [facility] for shortness of breath. According to the family, the patient was having issues with constipation and she was taking laxatives at home. She was also having shortness of breath for the past 3 days. She refused to seek any medical attention. Denies having any abdominal pain. In the emergency, she was in acute respiratory distress and she was tachypneic and using accessory muscles of breathing. She has wheezing. She was given Xopenex. Her heart rate was around 130 and she was diaphoretic. She was given Lasix 40 mg IV and she was given also a dose of Solu-Medrol and initially she was placed on a nonrebreather and subsequently she was switched to a BiPAP. Noted the patient is known to have coronary artery disease. She has undergone previous bypass surgery in 2009. She also has history of CHF, and she has been followed by oncology regarding previous history of non-Hodgkin's lymphoma and according to her disease is in remission. She is also known to have diabetes mellitus and hyperlipidemia and she is obese. For now, the patient remains on a BiPAP. Triple-lumen catheter was inserted in the other hospital as the patient was briefly hypotensive. She was given Rocephin and Zithromax. I reviewed the chest x-ray from today and the patient has a very dense and extensive consolidation involving the entire right lung and the left lung remains clear from her airspace disease. There is obvious worsening in the opacification of the right hemithorax at this point. The patient is arousable and awake. Initia l white cell count was 19.5 dropped down to 9.5. Hemoglobin is at 14.2 dropped down to 13. Sodium level is at 127, potassium is at 5.3, BUN is 18 with a creatinine of 0.7. Troponin is at 0.10.2 and 0.3 respectively x 3. UA showing +1 protein, negative for any infection. The patient has not had a viral panel checked at this point. She is currently on IV heparin. On 06/15/2023, the patient is doing well. No specific complaints. She is off the BiPAP. Chest x-ray is still showing some residual pleural effusion on the right and the residual inflammatory changes in the right lung consistent with a pneumonia.The patient underwent a large-volume thoracentesis yesterday and the fluid analysis was not exudate based on elevated protein level. The white cell count was also mildly elevated at 1625, 64% lymphocytes. Cultures are still pending. Cytology still pending. Patient remains on a combination of Zosyn Zithromax and vancomycin. Echocardiogram was also done and the patient was fou nd to have an EF of around 25 to 30% and the patient had inferolateral hypokinesis. There was segmental wall motion abnormalities. She is awake and she is communicating. Procalcitonin level was at 0.48. The rest of the labs from today shows a white cell count of 13, hemoglobin of 12 and a platelet count of 153, sodium levels of 128, potassium is at 4.6, BUN is at 50 mg of 0.6. Troponin peaked at 0.3. Patient was evaluated on 06/16/2023, remains in the ICU, remains empirically on antibiotics in the form of vancomycin and Zosyn. Her echocardiogram showed severe LV dysfunction with ejection fraction of 20 to 25%. Considering her improvement after her right-sided thoracentesis, and the fluid turned out to be exudative in nature, patient remains in the meantime on antibiotics, and she s eems to have a likely contaminated blood culture. Patient remains on antibiotics, and remains on diuretics. Intermittently. Overall the patient is feeling better, she is on 2 L nasal cannula, not in distress. Basic metabolic profile is relatively normal renal profile is normal, chest x-ray showed improvement with patchy pleural-parenchymal opacities right hemithorax Objective - Vital Signs Vital signs: Vital Signs Temp 98.2 F 04/17/23 08:00 Pulse 92 04/17/23 08:00 Resp 16 04/17/23 08:00 BP 134/62 04/17/23 08:00 Pulse Ox 97 04/17/23 08:00 FiO2 40 04/15/23 18:00 Intake & Output 04/16/23 04/17/23 04/17/23 18:59 06:59 18:59 Intake Total 530 1080 Output Total 1430 2520 Balance -900 -1440 Weight 95 kg Intake: IV 230 930 Azithromycin 500 mg In 250 Sodium Chloride 0.9% 250 ml @ 250 mls/hr IVPB DAILY@2200 [facility] Rx#: [id number] Piperacillin-Tazobactam 3 100 100 .375 gm In Sodium Chloride 0.9% 100 ml @ 25 mls/hr IVPB Q8H [facility] Rx#: [id number] Sodium Chloride 0.9% 1, 130 80 000 ml @ 10 mls/hr IV . Q24H [facility] Rx#:[id number] Vancomycin 1,500 mg In 500 Sodium Chloride 0.9% 500 ml 500 ml @ 167 mls/hr IVPB Q16H [facility] Rx#: [id number] Oral 300 150 Output: Urine 1430 2520 Other: Voiding Method Indwelling Catheter Indwelling Catheter Bedside Commode # Voids 1 # Bowel Movements 3 - Exam General: The patient is awake and alert, in no distress, and does not appear acutely ill. On 2 L nasal cannula Skin: Skin is warm and dry and no rashes or lesions are noted. Eye: Pupils are equal, round and reactive to light, extra-ocular movements are intact; there is normal conjunctiva bilaterally. Ears, nose, mouth and throat: There are moist mucous membranes and no oral lesions. Neck: The neck is supple, there is no tenderness or JVD. Cardiovascular: There is a regular rate and rhythm. No murmur, rub or gallop is appreciated. Respiratory: Minich breath sounds at the bases especially at the right base with minimal crackles no rhonchi no wheezes Gastrointestinal: Soft, non-distended, non-tender abdomen without masses or organomegaly noted. There is no rebound or guarding present. Bowel sounds are unremarkable. Back: There is no tenderness to palpation in the midline. There is no obvious deformity. Musculoskeletal: Normal ROM, no tenderness, There is no pedal edema. There is no calf tenderness or swelling. No cords were appreciated. Neurological: CN II-XII intact, Cranial nerves III through XII are intact. There are no obvious motor or sensory deficits. Coordination appears grossly intact. Speech is normal. Psychiatric: Cooperative, appropriate mood & affect, normal judgment. - Labs CBC & Chem 7: 04/17/23 04:35 04/17/23 08:50 Labs: Abnormal Lab Results - Last 24 Hours (Table) 04/16/23 04/17/23 04/17/23 Range/Units 16:21 04:35 06:51 Sodium 131 L (137-145) mmol/L Carbon Dioxide 21 L (22-30) mmol/L Glucose 145 H (74-99) mg/dL POC Glucose (mg/dL) 138 H 164 H (70-110) mg/dL Total Protein 5.7 L (6.3-8.2) g/dL Albumin 3.1 L (3.5-5.0) g/dL 04/17/23 04/17/23 Range/Units 08:50 11:26 Sodium 131 L (137-145) mmol/L Carbon Dioxide 21 L (22-30) mmol/L Glucose 194 H (74-99) mg/dL POC Glucose (mg/dL) 127 H (70-110) mg/dL Total Protein (6.3-8.2) g/dL Albumin (3.5-5.0) g/dL Microbiology - Last 24 Hours (Table) 04/14/23 22:18 Blood Culture Gram Stain - Final Blood Blood Culture - Final Staph hominis sub sp. hominis 04/15/23 13:58 Gram Stain - Preliminary Pleural Fluid Body Fluid Culture - Preliminary Assessment and Plan Assessment: Impression: Acute hypoxic respiratory failure Right-sided parapneumonic effusion/exudative, diagnostic studies are pending on the fluid. Acute congestive heart failure with impaired LV function ejection fraction of 25 to 30% Acute non-ST elevation myocardial infarction with elevated abnormal troponins Hypovolemic hypotension, improved with fluids, possible sepsis. Obesity with BMI of 31.6 History of non-Hodgkin's lymphoma History of CABG Type 2 diabetes without complications Rheumatoid arthritis Degenerative joint disease Recommendation: Continue oxygen and titrate accordingly Continue antibiotics for now and adjust based on the final cultures discontinue Zithromax. Recheck blood cultures as there may be a contamination. Continue cardiac meds including Coreg and aspirin Resume home meds Continue subcu heparin Awaiting final report on the pleural effusion again it was exudative in nature and most likely parapneumonic Will continue to follow Time with Patient: Less than 30
--- NOTE | 2023-04-17 14:46 | CDI ---
Documentation Clarification Form Date: 04/17/2023 02:13:21 PM From: Skye Vann RN, CCDS Email: [email or web address] Admit Date: 04/14/2023 10:08:00 PM Patient Name: Payton Connor Visit Number: [id number] Discharge Date: ATTENTION: The Clinical Documentation Specialists (CDI) and [facility] Coding Staff appreciate your assistance in clarifying documentation. Please respond to the clarification below the line at the bottom and electronically sign. The CDI & [facility] Coding staff will review the response and follow-up if needed. Please note: Queries are made part of the Legal Health Record. If you have any questions, please contact the author of this message via ITS. Dr. Payton Oliveros The patient has pneumonia and acute hypoxic respiratory failure. Pulmonary indicates possible sepsis in the 04/17 progress note. Based on this information and the findings below, is there an additional diagnosis that is clinically appropriate for this patient? History/Risk Factors: DM, non-Hodgkin lymphoma, RA, CAD, CABG. Presented with hypotension, pneumonia and pleural effusion. S/P thoracentesis. Clinical Indicators: ED: "Patient presents today for evaluation of sepsis, pneumonia and respiratory failure. Transfer from outside facility." 04/17 Cardiology: "acute hypoxic respiratory failure; sepsis; diabetes; and dyslipidemia." 04/17 Pulmonary: "Hypovolemic hypotension, improved with fluids, possible sepsis." 04/14-04/17 WBC: 19.5-9.5-13.2-8.7 04/14 Lactic acid: 1.9 04/14 Blood cultures: staphylococcus hominis (likely contaminant) 04/14 HR 104; 04/15 RR 34 Treatment: s/p 04/15 thoracentesis with 2400ml of turbid colored fluid removed Antibiotics: IV Azithromycin 500mg x1 on 04/14 then daily; IV Zosyn 3.375gm Q8H 04/15-current; IV Bolus: 0.9 NS 1L IV bolus on 04/14 then 130mL/hr 04/14-04/15 Is there an additional diagnosis that is clinically appropriate for this patient? [ ] Sepsis, present on admission [ ] Sepsis ruled out [ ] Other, please specify [ ] Unable to determine SIRS Criteria: 2 or more of the following may indicate SIRS Temperature < 96.8F (36C) or > 101.0F (38.3C) Heart Rate > 90 bpm Respiratory Rate > 20 breaths/min or PaCO2 < 32 mmHg White Blood Cell Count > 12,000 or < 4,000 cells/mm3 or > 10% bands Sepsis ruled out MTDD
--- NOTE | 2023-04-17 15:02 | CDI ---
Documentation Clarification Form Date: 04/17/2023 02:46:21 PM From: Skye Vann RN, CCDS Email: [email or web address] Admit Date: 04/14/2023 10:08:00 PM Patient Name: Payton Connor Visit Number: [id number] Discharge Date: ATTENTION: The Clinical Documentation Specialists (CDI) and [facility] Coding Staff appreciate your assistance in clarifying documentation. Please respond to the clarification below the line at the bottom and electronically sign. The CDI & [facility] Coding staff will review the response and follow-up if needed. Please note: Queries are made part of the Legal Health Record. If you have any questions, please contact the author of this message via ITS. Dr. Payton Oliveros Pneumonia is documented in the H&P and throughout the progress notes. Additional clarification regarding the type of pneumonia is requested. History/Risk Factors: DM, non-Hodgkin lymphoma, RA, CAD, CABG. Presented with hypotension, pneumonia and pleural effusion. S/P thoracentesis. Clinical Indicators: ED: "Patient presents today for evaluation of sepsis, pneumonia and respiratory failure. Transfer from outside facility." 04/17 Cardiology: "acute hypoxic respiratory failure; sepsis; diabetes; and dyslipidemia." 04/17 Pulmonary: "Chest x-ray is still showing some residual pleural effusion on the right and the residual inflammatory changes in the right lung consistent with a pneumonia." 04/14 CXR: moderate pleural effusion 04/15 CXR: worsening of the opacification of the right hemithorax predominantly secondary to an increasing large right pleural effusion. Lung/Breathing assessment: labored with respiratory distress per 04/15 Pulmonary note. 04/14-04/17 WBC: 19.5-9.5-13.2-8.7 04/14 Lactic acid: 1.9 04/14 Blood cultures: staphylococcus hominis (likely contaminant) 04/14 HR 104; 04/15 RR 34 Treatment: s/p 04/15 thoracentesis with 2400ml of turbid colored fluid removed Antibiotics: IV Azithromycin 500mg x1 on 04/14 then daily; IV Zosyn 3.375gm Q8H 04/15-current; IV Vancomycin 1500mg Q16H 04/15-04/17; IV Vancomycin 1500mg Q12H currently. IV Bolus: 0.9 NS 1L IV bolus on 04/14 then 130mL/hr 04/14-04/15 O2: Bipap Please clarify the type of pneumonia, if known: [ ] Bacterial Pneumonia, specify causal organism (if known) [ ] Gram Negative Bacterial Pneumonia [ ] Bacterial Pneumonia Due to Staph [ ] Other bacteria (please specify) [ ] Other, please specify [ ] Unable to determine Unable to determine MTDD
[2023-04-17 16:39] LABS: Glucose,Whole Blood 144 mg/dL (70-110)
[2023-04-17 21:28] LABS: Glucose,Whole Blood 134 mg/dL (70-110)
[2023-04-17] MEDS ORDERED: VANCOMYCIN 1,500 MG in SODIUM CHLORIDE 0.9% 500 ML 500 ML IVPB SCH (23:00)
--- NOTE | 2023-04-17 23:06 | PN ---
PROGRESS NOTE DATE OF SERVICE: 04/17/2023 SUBJECTIVE: This is an 82-year-old woman who was admitted with shortness of breath and possible pneumonia, had significant pleural effusion also. The patient had thoracocentesis. Repeat chest x-ray showed significant improvement. the fluid pathology is pending at this time. PAST MEDICAL HISTORY: Reviewed. REVIEW OF SYSTEMS: A 14-point review is negative except as mentioned. CURRENT MEDICATIONS: Reviewed include vitamin D3. PHYSICAL EXAMINATION: VITAL SIGNS: Pulse is 92, blood pressure 135/60, and respirations 16. CHEST: A few scattered rhonchi and crackles. Breath sounds are diminished. CARDIOVASCULAR: S1, S2. ABDOMEN: Soft, nontender. NERVOUS SYSTEM: Nonfocal. LABORATORY DATA: Sodium 139, rest of the labs are noted. Blood cultures showed Staph hominis. ASSESSMENT: 1. Shortness of breath, possible right lower lobe pneumonia and pleural effusion with acute hypoxic respiratory failure with hypotension, status post mechanical ventilation. 2. Staph hominis from the blood culture. 3. Troponin 0.32. Possible acute aev-XN-hrhrxmt-elevation myocardial infarction. 4. Possible cardiomyopathy with chronic systolic dysfunction, ejection fraction 25% to 30%. 5. Hyponatremia. 6. History of coronary artery disease. 7. CABG. 8. Diabetes mellitus, type 2. 9. Hypertension. 10.Hyperlipidemia. 11.Multiple medical issues. RECOMMENDATIONS: Recommended to continue current management, continue symptomatic treatment. Continue with antibiotics, bronchodilators, and rest of medications. One dose of Lasix was given. We will continue to monitor. Repeat labs in the morning. Closely follow with multiple consultants. Await fluid pathology. Guarded prognosis. Further recommendations to follow. I would also recommend Infectious Disease evaluation for Staph hominis in the blood. MMODL / IJN: [id number] / MTDD
[2023-04-18 04:09] LABS: Basophils % (A) 1 %; Eosinophils # (A) 0.4 k/uL (0-0.7); Eosinophils % (A) 6 %; HCT 36.2 % (34.0-46.0); HGB 12.5 gm/dL (11.4-16.0); Lymphocytes # (A) 1.9 k/uL (1.0-4.8); Lymphocytes % (A) 26 %; MCH 32.4 pg (25.0-35.0); MCHC 34.4 g/dL (31.0-37.0); MCV 94.1 fL (80.0-100.0); Mean Platelet Volume 9.1; Monocytes # (A) 0.6 k/uL (0-1.0); Monocytes % (A) 8 %; Neutrophils # (A) 4.1 k/uL (1.3-7.7); Neutrophils % (A) 58 %; Platelet Count 121 k/uL (150-450); RBC 3.85 m/uL (3.80-5.40); RDW 13.3 % (11.5-15.5); WBC 7.1 k/uL (3.8-10.6)
[2023-04-18 04:28] LABS: African American GFR (CKD) >90 (>60 ml/min/1.73 sqM); Anion Gap 2 mmol/L; Blood Urea Nitrogen 10 mg/dL (7-17); Calcium 8.4 mg/dL (8.4-10.2); Carbon Dioxide 26 mmol/L (22-30); Chloride 104 mmol/L (98-107); Glucose 115 mg/dL (74-99); Non-African American GFR(CKD) 87 (>60 ml/min/1.73 sqM); Potassium 3.9 mmol/L (3.5-5.1); Sodium 132 mmol/L (137-145)
[2023-04-18 06:30] LABS: Glucose,Whole Blood 140 mg/dL (70-110)
--- NOTE | 2023-04-18 08:46 | P.CONS ---
History of Present Illness - Reason for Consult Consult date: 04/10/23 Staph hominis in the blood Requesting physician: Payton Oliveros - Chief Complaint Shortness of breath and right-sided chest pain x few days - History of Present Illness Patient is a 82-year-old female with a past medical history significant for diabetes mellitus hypertension hyperlipidemia coronary artery disease and lymphoma presenting to the hospital 4 days ago as a transfer from outside facility with the patient was diagnosed with sepsis and possible pneumonia patient presented to their facility concern for increasing shortness of breath currently started the day of presentation to the hospital patient was also complaining of right lower chest pain mostly sharp moderate intensity without any radiation denies significant cough or sputum production patient denies having any URI symptoms no nausea no vomiting no abdominal pain no diarrhea do not have any open wound or any drainage patient did have a chest x- ray on admission which was cardiomegaly moderate right effusion presumed pulmonary edema also have a CT of the chest large right effusion and right lower lobe atelectasis patient has been admitted to the ICU and has been treated with the broad-spectrum antibiotic in the form of vancomycin and Zosyn the patient is currently receiving for the last 3 to 4 days she did have a positive blood culture with Staphylococcus hominis repeat blood culture 04/16/2023 so far negative patient did have a thoracocentesis done on 04/15/2023 which was bloody with a white count of 1625 culture has been negative so far infectious disease was consulted today for further management of antibiotic therapy patient mention overall breathing has improved and the patient is currently on 2 L nasal oxygen patient right-sided chest pain has improved still not complaining of any cough or sputum production no abdominal pain Review of Systems Positive point and negatives has been mentioned in the HPI, complete review of systems was performed and all other systems are negative Past Medical History Past Medical History: Coronary Artery Disease (CAD), Cancer, Chest Pain / Angina, Diabetes Mellitus, Hyperlipidemia, Hypertension, Osteoarthritis (OA), Rheumatoid Arthritis (RA) Additional Past Medical History / Comment(s): hypothyroidism, neuropathy, lymphoma 2012 History of Any Multi-Drug Resistant Organisms: None Reported Past Surgical History: Coronary Bypass/CABG, Hysterectomy Additional Past Surgical History / Comment(s): thyroidectomy, Cataracts, partial thyroidectomy, CABG 2009 4 vessel Past Anesthesia/Blood Transfusion Reactions: No Reported Reaction Past Psychological History: Unable to Obtain Smoking Status: Former smoker Past Alcohol Use History: None Reported Additional Past Alcohol Use History / Comment(s): Patient states she smoked for 40 years, 1/3 ppd Past Drug Use History: None Reported Medications and Allergies Home Medications Medication Instructions Recorded Confirmed Type Aspirin EC [Ecotrin Low Dose] 81 mg PO DAILY 04/14/23 04/14/23 History Cholecalciferol [Vitamin D3 (25 25 mcg PO DAILY 04/14/23 04/14/23 History Mcg = 1000 Iu)] Cyanocobalamin (Vitamin B-12) 1,000 mcg PO DAILY 04/14/23 04/14/23 History [Vitamin B-12] Ferrous Sulfate [Iron (65 MG 325 mg PO DAILY 04/14/23 04/14/23 History Elemental)] Fluticasone Nasal [place] [Flonase 1 spray EA NOSTRIL DAILY 04/14/23 04/14/23 History Nasal [place]] Levothyroxine Sodium [Synthroid] 200 mcg PO DAILY 04/14/23 04/14/23 History Omeprazole 40 mg PO DAILY 04/14/23 04/14/23 History Simvastatin [Zocor] 20 mg PO HS 04/14/23 04/14/23 History carvediloL [Coreg] 6.25 mg PO BID 04/14/23 04/14/23 History glipiZIDE [Glucotrol] 5 mg PO BID 04/14/23 04/14/23 History lisinopriL 40 mg PO DAILY 04/14/23 04/14/23 History metFORMIN HCL 1,000 mg PO BID 04/14/23 04/14/23 History Amoxic-Pot Clav 875-125Mg 1 each PO Q12HR 7 Days #14 tab 04/21/23 Rx [Augmentin 875-125] Furosemide [Lasix] 20 mg PO DAILY #30 tab 04/21/23 Rx Isosorbide Mononitrate ER [Imdur] 30 mg PO DAILY #30 tab 04/21/23 Rx Sodium Chloride 0.65% Nasal [Deep 2 spray NASAL QID #5 ml 04/21/23 Rx Sea (Saline)] Allergies Allergy/AdvReac Type Severity Reaction Status Date / Time atorvastatin [From Lipitor] Allergy Unknown Verified 04/14/23 22:39 bisacodyl Allergy Unknown Verified 04/14/23 22:39 [From Dulcolax (bisacodyl)] carisoprodol [From Soma] Allergy Unknown Verified 04/14/23 22:39 morphine Allergy Vomiting Verified 04/14/23 22:39 orphenadrine Allergy Unknown Verified 04/14/23 22:39 pseudoephedrine Allergy Unknown Verified 04/14/23 22:39 [From Sudafed] tramadol [From Ultram] Allergy Unknown Verified 04/14/23 22:39 Physical Exam Vitals: Vital Signs Temp Pulse Resp BP Pulse Ox 04/17/23 12:00 98.2 F 90 14 131/61 96 04/17/23 08:00 98.2 F 92 16 134/62 97 04/17/23 04:00 84 20 131/94 94 L 04/17/23 00:00 98.2 F 81 21 121/69 94 L 04/16/23 20:00 97.9 F 84 34 H 99/56 95 Intake and Output 04/17/23 04/17/23 04/17/23 06:59 14:59 22:59 Intake Total 1080 680 Output Total 2520 250 Balance -1440 430 Intake: IV 930 680 Azithromycin 500 mg In 250 Sodium Chloride 0.9% 250 ml @ 250 mls/hr IVPB DAILY@2200 [facility] Rx#: [id number] Piperacillin-Tazobactam 3 100 100 .375 gm In Sodium Chloride 0.9% 100 ml @ 25 mls/hr IVPB Q8H [facility] Rx#: [id number] Sodium Chloride 0.9% 1, 80 80 000 ml @ 10 mls/hr IV . Q24H [facility] Rx#:[id number] Vancomycin 1,500 mg In 500 500 Sodium Chloride 0.9% 500 ml 500 ml @ 167 mls/hr IVPB Q16H [facility] Rx#: [id number] Oral 150 Output: Urine 2520 250 Other: Voiding Method Indwelling Catheter Bedside Commode # Voids 1 1 # Bowel Movements 3 1 Weight 95 kg GENERAL DESCRIPTION: Elderly female up in the chair, no distress. No tachypnea or accessory muscle of respiration use. HEENT: Shows Pallor , no scleral icterus. Oral mucous membrane is dry. No pharyngeal erythema or thrush NECK: Trachea central, no thyromegaly. LUNGS: Unlabored breathing. Decreased breath sound at the base no wheeze or crackle. HEART: S1, S2, regular rate and rhythm. No loud murmur ABDOMEN: Soft, no tenderness , guarding or rigidity, no organomegaly EXTREMITIES: No edema of feet. SKIN: No rash, no masses palpable. NEUROLOGICAL: The patient is awake, alert, oriented x3, mood and affect normal. Results CBC & Chem 7: 04/20/23 09:42 04/21/23 08:48 Labs: Abnormal Lab Results - Last 24 Hours (Table) 04/17/23 04/17/23 04/17/23 Range/Units 04:35 06:51 08:50 Sodium 131 L 131 L (137-145) mmol/L Carbon Dioxide 21 L 21 L (22-30) mmol/L Glucose 145 H 194 H (74-99) mg/dL POC Glucose (mg/dL) 164 H (70-110) mg/dL Total Protein 5.7 L (6.3-8.2) g/dL Albumin 3.1 L (3.5-5.0) g/dL 04/17/23 04/17/23 Range/Units 11:26 16:38 Sodium (137-145) mmol/L Carbon Dioxide (22-30) mmol/L Glucose (74-99) mg/dL POC Glucose (mg/dL) 127 H 144 H (70-110) mg/dL Total Protein (6.3-8.2) g/dL Albumin (3.5-5.0) g/dL Microbiology - Last 24 Hours (Table) 04/14/23 22:18 Blood Culture Gram Stain - Final Blood Blood Culture - Final Staph hominis sub sp. hominis 04/15/23 13:58 Gram Stain - Preliminary Pleural Fluid Body Fluid Culture - Preliminary Assessment and Plan (1) Pneumonia Status: Acute Code(s): J18.9 - PNEUMONIA, UNSPECIFIED ORGANISM SNOMED Code(s): 829444346 (2) Positive blood culture Status: Acute Code(s): R78.81 - BACTEREMIA SNOMED Code(s): 082643380 Plan: 1patient presented hospital with increasing shortness of breath right-sided chest pain more likely due to the right-sided effusion questionably cardiac in etiology as the pleural fluid was not exudative and mostly bloody underlying pneumonia less likely but not entirely excluded 2positive blood culture with Staphylococcus hominis more likely skin contamination and not a true pathogen 3May continue with the Zosyn while waiting for the pleural fluid culture to finalize however discontinue vancomycin to decrease risk of nephrotoxicity Multiple family members at the bedside questions were answered We will follow on clinical condition and cultures to further adjust medication if needed Thank you for this consultation we will follow the patient along with you Dictation was produced using [employer] dictation software. please excuse any grammatical, word or spelling errors. Time with Patient: Greater than 30
[2023-04-18 11:36] LABS: Glucose,Whole Blood 120 mg/dL (70-110)
[2023-04-18] MEDS: ISOSORBIDE MONONITRATE ER 30 MG TAB.ER.24H PO SCH (12:03)
--- NOTE | 2023-04-18 12:03 | P.PN ---
Subjective Progress Note Date: 04/18/23 Principal diagnosis: Reason for follow-up is positive blood culture and question of pneumonia Patient is a 82-year-old female with a past medical history significant for diabetes mellitus hypertension hyperlipidemia coronary artery disease and lymphoma presenting to the hospital with right-sided chest pain increasing shortness of breath patient did have a large effusion requiring thoracocentesis did have a positive blood culture Streptococcus hominis. On today's evaluation that is 04/18/2023, Patient is afebrile , patient is currently on room air and denies having any shortness of breath, the patient denies any chest pain or cough, the patient denies any nausea vomiting did not have any abdominal pain and no diarrhea, feeling better no new symptoms. The patient white count is 7.1, creatinine 0.56 pleural fluid cultures currently pending Objective - Vital Signs Vital signs: Vital Signs Temp 97.7 F 04/18/23 08:38 Pulse 80 04/18/23 08:38 Resp 16 04/18/23 08:38 BP 107/59 04/18/23 08:38 Pulse Ox 92 L 04/18/23 08:38 FiO2 40 04/15/23 18:00 Intake & Output 04/17/23 04/18/23 04/18/23 18:59 06:59 18:59 Intake Total 680 80 430 Output Total 250 Balance 430 80 430 Weight 93.4 kg Intake: IV 680 80 190 Invasive Line 1 10 Piperacillin-Tazobactam 3 100 100 .375 gm In Sodium Chloride 0.9% 100 ml @ 25 mls/hr IVPB Q8H [facility] Rx#: [id number] Sodium Chloride 0.9% 1, 80 80 80 000 ml @ 10 mls/hr IV . Q24H [facility] Rx#:[id number] Vancomycin 1,500 mg In 500 Sodium Chloride 0.9% 500 ml 500 ml @ 167 mls/hr IVPB Q16H [facility] Rx#: [id number] Oral 240 Output: Urine 250 Other: Voiding Method Bedside Commode Bedside Commode Toilet # Voids 1 1 # Bowel Movements 1 2 1 - Exam GENERAL DESCRIPTION: Elderly female up in the chair in no distress RESPIRATORY SYSTEM: Unlabored breathing , decreased breath sounds at bases HEART: S1 S2 regular rate and rhythm , ABDOMEN: Soft , no tenderness EXTREMITIES: No edema feet - Labs CBC & Chem 7: 04/18/23 03:23 04/18/23 03:23 Labs: Abnormal Lab Results - Last 24 Hours (Table) 04/17/23 04/17/23 04/18/23 Range/Units 16:38 21:27 03:23 Plt Count 121 L (150-450) k/uL Sodium (137-145) mmol/L Glucose (74-99) mg/dL POC Glucose (mg/dL) 144 H 134 H (70-110) mg/dL 04/18/23 04/18/23 04/18/23 Range/Units 03:23 06:28 11:35 Plt Count (150-450) k/uL Sodium 132 L (137-145) mmol/L Glucose 115 H (74-99) mg/dL POC Glucose (mg/dL) 140 H 120 H (70-110) mg/dL Microbiology - Last 24 Hours (Table) 04/16/23 14:37 Blood Culture - Preliminary Blood 04/15/23 13:58 Gram Stain - Preliminary Pleural Fluid Body Fluid Culture - Preliminary 04/14/23 22:18 Blood Culture Gram Stain - Final Blood Blood Culture - Final Staph hominis sub sp. hominis Assessment and Plan (1) Positive blood culture Current Visit: Yes Status: Acute Code(s): R78.81 - BACTEREMIA SNOMED Code(s): 945204512 (2) Pneumonia Current Visit: Yes Status: Acute Code(s): J18.9 - PNEUMONIA, UNSPECIFIED ORGANISM SNOMED Code(s): 580591974 Plan: 1patient presented hospital with increasing shortness of breath right-sided chest pain more likely due to the right-sided effusion questionably cardiac in etiology as the pleural fluid was not exudative and mostly bloody underlying pneumonia less likely but not entirely excluded 2positive blood culture with Staphylococcus hominis more likely skin contamination and not a true pathogen, vancomycin has been discontinued 3patient to continue with the Zosyn while waiting for the pleural fluid culture to finalize and monitor clinical course closely Dictation was produced using [employer] dictation software. please excuse any grammatical, word or spelling errors. Time with Patient: Less than 30
--- NOTE | 2023-04-18 12:09 | P.PN ---
Subjective Progress Note Date: 04/18/23 Principal diagnosis: Acute hypoxic respiratory failure secondary to congestive heart failure with systolic dysfunction and large right-sided parapneumonic pleural effusion This is a 82-year-old female patient was currently being seen in the emergency department. The patient arrived to our hospital yesterday evening and the patient is currently being seen in the ICU, currently on a BiPAP at a pressure of 12 or 6 cm of water and FiO2 of 50%. Her breathing is labored while on the BiPAP and she is still tachypneic and she is able to generate a tidal volume around 450 while on the BiPAP. The patient initially presented to [facility] for shortness of breath. According to the family, the patient was having issues with constipation and she was taking laxatives at home. She was also having shortness of breath for the past 3 days. She refused to seek any medical attention. Denies having any abdominal pain. In the emergency, she was in acute respiratory distress and she was tachypneic and using accessory muscles of breathing. She has wheezing. She was given Xopenex. Her heart rate was around 130 and she was diaphoretic. She was given Lasix 40 mg IV and she was given also a dose of Solu-Medrol and initially she was placed on a nonrebreather and subsequently she was switched to a BiPAP. Noted the patient is known to have coronary artery disease. She has undergone previous bypass surgery in 2009. She also has history of CHF, and she has been followed by oncology regarding previous history of non-Hodgkin's lymphoma and according to her disease is in remission. She is also known to have diabetes mellitus and hyperlipidemia and she is obese. For now, the patient remains on a BiPAP. Triple-lumen catheter was inserted in the other hospital as the patient was briefly hypotensive. She was given Rocephin and Zithromax. I reviewed the chest x-ray from today and the patient has a very dense and extensive consolidation involving the entire right lung and the left lung remains clear from her airspace disease. There is obvious worsening in the opacification of the right hemithorax at this point. The patient is arousable and awake. Initia l white cell count was 19.5 dropped down to 9.5. Hemoglobin is at 14.2 dropped down to 13. Sodium level is at 127, potassium is at 5.3, BUN is 18 with a creatinine of 0.7. Troponin is at 0.10.2 and 0.3 respectively x 3. UA showing +1 protein, negative for any infection. The patient has not had a viral panel checked at this point. She is currently on IV heparin. On 06/15/2023, the patient is doing well. No specific complaints. She is off the BiPAP. Chest x-ray is still showing some residual pleural effusion on the right and the residual inflammatory changes in the right lung consistent with a pneumonia.The patient underwent a large-volume thoracentesis yesterday and the fluid analysis was not exudate based on elevated protein level. The white cell count was also mildly elevated at 1625, 64% lymphocytes. Cultures are still pending. Cytology still pending. Patient remains on a combination of Zosyn Zithromax and vancomycin. Echocardiogram was also done and the patient was fou nd to have an EF of around 25 to 30% and the patient had inferolateral hypokinesis. There was segmental wall motion abnormalities. She is awake and she is communicating. Procalcitonin level was at 0.48. The rest of the labs from today shows a white cell count of 13, hemoglobin of 12 and a platelet count of 153, sodium levels of 128, potassium is at 4.6, BUN is at 50 mg of 0.6. Troponin peaked at 0.3. Patient was evaluated on 04/17/2023, remains in the ICU, remains empirically on antibiotics in the form of vancomycin and Zosyn. Her echocardiogram showed severe LV dysfunction with ejection fraction of 20 to 25%. Considering her improvement after her right-sided thoracentesis, and the fluid turned out to be exudative in nature, patient remains in the meantime on antibiotics, and she s eems to have a likely contaminated blood culture. Patient remains on antibiotics, and remains on diuretics. Intermittently. Overall the patient is feeling better, she is on 2 L nasal cannula, not in distress. Basic metabolic profile is relatively normal renal profile is normal, chest x-ray showed improvement with patchy pleural-parenchymal opacities right hemithorax Patient was reevaluated today on 04/18/2023, remains in the ICU, patient is on room air, sitting at the bedside chair, remains on antibiotics empirically for her right-sided parapneumonic effusion. Cultures are negative so far, patient is receiving Zosyn. Her echocardiogram showed LV dysfunction with ejection fraction of 25 to 30%. Patient is not in any distress, her positive blood cultures for Staph hominis seem to be more likely a contamination from the skin, cultures from the pleural effusion are negative so far, nothing is growing, and negative Gram stain WBC count today is 7.1 hemoglobin 12.5, basic metabolic pr ofile is normal and renal profile is normal, cytology on the pleural effusion is pending. Chest x-ray from 04/17 showed mostly patchy pleural-parenchymal opacities in the right hemithorax. Objective - Vital Signs Vital signs: Vital Signs Temp 97.7 F 04/18/23 08:38 Pulse 80 04/18/23 08:38 Resp 16 04/18/23 08:38 BP 107/59 04/18/23 08:38 Pulse Ox 92 L 04/18/23 08:38 FiO2 40 04/15/23 18:00 Intake & Output 04/17/23 04/18/23 04/18/23 18:59 06:59 18:59 Intake Total 680 80 430 Output Total 250 Balance 430 80 430 Weight 93.4 kg Intake: IV 680 80 190 Invasive Line 1 10 Piperacillin-Tazobactam 3 100 100 .375 gm In Sodium Chloride 0.9% 100 ml @ 25 mls/hr IVPB Q8H [facility] Rx#: [id number] Sodium Chloride 0.9% 1, 80 80 80 000 ml @ 10 mls/hr IV . Q24H [facility] Rx#:[id number] Vancomycin 1,500 mg In 500 Sodium Chloride 0.9% 500 ml 500 ml @ 167 mls/hr IVPB Q16H [facility] Rx#: [id number] Oral 240 Output: Urine 250 Other: Voiding Method Bedside Commode Bedside Commode Toilet # Voids 1 1 # Bowel Movements 1 2 1 - Exam General: The patient is awake and alert, in no distress, and does not appear acutely ill. On room air Skin: Skin is warm and dry and no rashes or lesions are noted. Eye: Pupils are equal, round and reactive to light, extra-ocular movements are intact; there is normal conjunctiva bilaterally. Ears, nose, mouth and throat: There are moist mucous membranes and no oral lesions. Neck: The neck is supple, there is no tenderness or JVD. Cardiovascular: There is a regular rate and rhythm. No murmur, rub or gallop is appreciated. Respiratory: Minimal crackles at the bases no rhonchi no wheezes Gastrointestinal: Soft, non-distended, non-tender abdomen without masses or organomegaly noted. There is no rebound or guarding present. Bowel sounds are unremarkable. Back: There is no tenderness to palpation in the midline. There is no obvious deformity. Musculoskeletal: Normal ROM, no tenderness, There is no pedal edema. There is no calf tenderness or swelling. No cords were appreciated. Neurological: CN II-XII intact, Cranial nerves III through XII are intact. There are no obvious motor or sensory deficits. Coordination appears grossly intact. Speech is normal. Psychiatric: Cooperative, appropriate mood & affect, normal judgment. - Labs CBC & Chem 7: 04/18/23 03:23 04/18/23 03:23 Labs: Abnormal Lab Results - Last 24 Hours (Table) 04/17/23 04/17/23 04/18/23 Range/Units 16:38 21:27 03:23 Plt Count 121 L (150-450) k/uL Sodium (137-145) mmol/L Glucose (74-99) mg/dL POC Glucose (mg/dL) 144 H 134 H (70-110) mg/dL 04/18/23 04/18/23 04/18/23 Range/Units 03:23 06:28 11:35 Plt Count (150-450) k/uL Sodium 132 L (137-145) mmol/L Glucose 115 H (74-99) mg/dL POC Glucose (mg/dL) 140 H 120 H (70-110) mg/dL Microbiology - Last 24 Hours (Table) 04/16/23 14:37 Blood Culture - Preliminary Blood 04/15/23 13:58 Gram Stain - Preliminary Pleural Fluid Body Fluid Culture - Preliminary 04/14/23 22:18 Blood Culture Gram Stain - Final Blood Blood Culture - Final Staph hominis sub sp. hominis Assessment and Plan Assessment: Impression: Acute hypoxic respiratory failure Right-sided parapneumonic effusion/exudative, diagnostic studies are pending on the fluid. Acute congestive heart failure with impaired LV function ejection fraction of 25 to 30% Acute non-ST elevation myocardial infarction with elevated abnormal troponins Hypovolemic hypotension, improved with fluids, possible sepsis. Obesity with BMI of 31.6 History of non-Hodgkin's lymphoma History of CABG Type 2 diabetes without complications Rheumatoid arthritis Degenerative joint disease Recommendation: Transfer patient today to a cardiac floor. Continue oxygen and titrate accordingly Continue Zosyn. Continue cardiac meds including Coreg and aspirin Continue subcu heparin Awaiting cytology from the pleural effusion Cultures on the pleural effusion are negative. Will continue to follow Time with Patient: Less than 30
--- NOTE | 2023-04-18 12:52 | PN ---
PROGRESS NOTE SUBJECTIVE: Payton is an 82-year-old lady admitted to ICU because of respiratory failure. She has known CAD and had prior bypass surgery and an echocardiogram revealed severe LV systolic dysfunction. OBJECTIVE: GENERAL: The patient is comfortable at rest. VITAL SIGNS: Stable. NECK: There is no jugular venous distention. CHEST: Reveals good air entry bilaterally. HEART: Reveals first and second heart sounds. No gallop. ABDOMEN: Soft. EXTREMITIES: Reveal bilateral pitting edema. Peripheral pulses are felt. MEDICATIONS: The patient is on, 1. Aspirin. 2. Coreg. 3. Zestril. 4. Simvastatin. ASSESSMENT AND PLAN: 1. Coronary artery disease, status post CABG. 2. Respiratory failure. PLAN: The patient will continue current medications. MMODL / IJN: [id number] /
--- NOTE | 2023-04-18 13:10 | P.PN ---
Subjective Progress Note Date: 04/18/23 Patient is an 82-year-old female who was recently admitted with increased shortness of breath and not feeling well over the last few days and progressively becoming more weak and was brought here for further evaluation with pulmonary shooting gallery operator following. Patient is in the ICU and patient is status post thoracentesis for the extensive right-sided pleural effusion currently awaiting on cytology. Cultures thus far been negative and patient is maintained on empiric antibiotics. Yesterday's chest x-ray showing some improvement and again pathology is pending. Patient is afebrile currently sitting up in the chair on room air denies worsening shortness of breath. Patient reports to feeling well and anticipating going home on discharge. Will have PT/OT therapy evaluate the patient. Patient is a transfer out of the ICU awaiting a bed on selective unit. Review of systems: Constitutional: No reports of fatigue, fever, or chills Cardiovascular: No reports of chest pain or palpitations Respiratory: No reports of worsening shortness of breath or cough GI: No reports of nausea, no reports of vomiting, no diarrhea : No reports of dysuria or retention Neurovascular: reports of generalized weakness All medications have been reviewed Active Medications Aspirin (Aspirin 81 Mg) 81 mg PO DAILY [facility] Last Admin: 04/18/23 08:41 Dose: 81 mg Carvedilol (Carvedilol 6.25 Mg Tab) 6.25 mg PO AC-BID [facility] Last Admin: 04/18/23 06:33 Dose: 6.25 mg Cholecalciferol (Cholecalciferol 25 Mcg (1000 Iu) Tablet) 25 mcg PO DAILY [facility] Last Admin: 04/18/23 08:41 Dose: 25 mcg Cyanocobalamin (Cyanocobalamin 500 Mcg Tab) 1,000 mcg PO DAILY [facility] Last Admin: 04/18/23 08:41 Dose: 1,000 mcg Dextrose/Water (Dextrose 50% Syringe 50 Ml) 25 ml IVP PER PROTOCOL PRN; Protocol PRN Reason: Hypoglycemia Dextrose/Water (Dextrose 50% Syringe 50 Ml) 50 ml IVP PER PROTOCOL PRN; Protocol PRN Reason: Hypoglycemia Ferrous Sulfate (Ferrous Sulfate 325 Mg Tab) 325 mg PO DAILY [facility] Last Admin: 04/18/23 08:41 Dose: 325 mg Fluticasone Propionate (Fluticasone 50mcg/[place] Nasal 16gm) 1 spray EA NOSTRIL DAILY [facility] Last Admin: 04/18/23 08:41 Dose: Not Given Glipizide (Glipizide 5 Mg Tab) 5 mg PO AC-BID [facility] Last Admin: 04/18/23 06:33 Dose: 5 mg Heparin Sodium (Porcine) (Heparin Sodium,Porcine 5,000 Unit/Ml 1 Ml Vial) 5,000 unit SQ Q8HR [facility] Last Admin: 04/18/23 08:40 Dose: 5,000 unit Hydromorphone HCl (Hydromorphone 1 Mg/Ml 1 Ml Syringe) 1 mg IVP Q4HR PRN PRN Reason: Pain Piperacillin Sod/Tazobactam (Sod 3.375 gm/ Sodium Chloride) 100 mls @ 25 mls/hr IVPB Q8H [facility]; Protocol Last Admin: 04/18/23 09:02 Dose: 25 mls/hr Sodium Chloride (Saline 0.9%) 1,000 mls @ 10 mls/hr IV .Q24H [facility] Last Admin: 04/18/23 06:30 Dose: Not Given Insulin Aspart (Insulin Aspart (Novolog) 100 Unit/Ml Vial) 0 unit SQ ACHS [facility]; Protocol Last Admin: 04/18/23 11:59 Dose: Not Given Isosorbide Mononitrate (Isosorbide Mononitrate Er 30 Mg Tab.Er.24h) 30 mg PO DAILY [facility] Last Admin: 04/18/23 12:03 Dose: 30 mg Levothyroxine Sodium (Levothyroxine 100 Mcg Tab) 200 mcg PO DAILY@0630 [facility] Last Admin: 04/18/23 06:33 Dose: 200 mcg Lisinopril (Lisinopril 20 Mg Tab) 40 mg PO DAILY [facility] Last Admin: 04/18/23 08:45 Dose: 40 mg Metformin HCl (Metformin 500 Mg Tab) 1,000 mg PO AC-BID [facility] Miscellaneous Information (Magnesium Replacement Protocol 1 Each Misc) 1 each MISCELLANE DAILY PRN; Protocol PRN Reason: Per Protocol Naloxone HCl (Naloxone 0.4 Mg/Ml 1 Ml Vial) 0.2 mg IV Q2M PRN PRN Reason: Opioid Reversal Nitroglycerin (Nitroglycerin Sl Tabs 0.4 Mg Tab) 0.4 mg SUBLINGUAL Q5M PRN PRN Reason: Chest Pain Simvastatin (Zocor) (20 Mg Tablet) 20 mg PO HS [facility] Last Admin: 04/17/23 21:54 Dose: 20 mg Ondansetron HCl (Ondansetron 4 Mg/2 Ml Vial) 4 mg IVP Q8HR PRN PRN Reason: Nausea And Vomiting Pantoprazole Sodium (Pantoprazole 40 Mg Tablet) 40 mg PO AC-BRKFST [facility] Last Admin: 04/18/23 06:33 Dose: 40 mg Sodium Chloride (Sodium Chloride 0.65% Nasal [place] 44 Ml Btl) 2 spray NASAL QID [facility] Last Admin: 04/18/23 11:59 Dose: Not Given PHYSICAL EXAMINATION: GENERAL: The patient is alert and oriented x4, Well developed, well nourished. Obese, elderly appearing HEENT: Pupils are round and equally reacting to light. EOMI. no scleral icterus. No conjunctival pallor. Normocephalic, atraumatic. No pharyngeal erythema. No thyromegaly. CARDIOVASCULAR: S1 and S2 muffled PULMONARY: diminished breath sounds bilaterally with no wheezing, some faint scattered rhonchi noted. ABDOMEN: soft. Nontender on exam. obese. non-distended, normoactive bowel sounds. No palpable organomegaly. MUSCULOSKELETAL: No joint swelling or deformity. EXTREMITIES: No cyanosis, clubbing, or pedal edema. NEUROLOGICAL: Gross neurological examination did not reveal any focal deficits. Diffuse weakness SKIN: No rashes. Assessment: Acute hypoxic respiratory failure secondary to right-sided parapneumonic effusion, status postthoracentesis, cytology pending, pneumonia ruled out. Status post mechanical ventilation, currently on room air Acute on chronic congestive heart failure with systolic dysfunction, EF 25 to 30% NSTEMI with elevated abnormal troponins, likely secondary to CHF exacerbation, ACS ruled out Acute hypotension, hypovolemic on admission with features of possible sepsis, multifactorial likely secondary to pleural effusions and CHF exacerbation, sepsis ruled out Bacteremia, on admission with blood culture showing staph, likely contaminant as repeat blood cultures thus far remain negative Hyponatremia History of coronary artery disease with CABG Diabetes mellitus, type II Hypertension history Hyperlipidemia history GI prophylaxis DVT prophylaxis Full code Plan: Recommend to continue with current medications and management with multiple medical consultations following including pulmonary and infectious disease along with cardiology. Patient is maintained on IV Zosyn and will continue and repeat blood cultures thus far have been negative. Patient is status post thoracentesis and cultures have been negative and awaiting pathology on thoracentesis Patient continues in the ICU although as a downgrade to 3 S. once a bed becomes available Continue monitoring Accu-Cheks before meals and at bedtime and continue with current insulin regimen Encouraged increase activity as tolerated and will have PT/OT therapy evaluate t he patient. Patient reports plan on returning home with family. Will await PT eval Will follow-up on repeat labs and monitor kidney functions and electrolytes closely Due to multiple complex medical issues, prognosis is guarded The impression and plan of care has been dictated by Kami Montoya, nurse practitioner as directed. Dr. Domo JOY I have performed a history and examination and MDM of this patient, discussed the same with the dictator, and agree with the dictator's assessment and plan as written ,documented as a scribe. Based on total visit time, I have performed more than 50% of the visit. Any additional findings or plans will be noted. Objective - Vital Signs Vital signs: Vital Signs Temp 97.6 F 04/18/23 12:08 Pulse 92 04/18/23 12:08 Resp 18 04/18/23 12:08 BP 146/75 04/18/23 12:08 Pulse Ox 93 L 04/18/23 12:08 FiO2 40 04/15/23 18:00 Intake & Output 04/17/23 04/18/23 04/18/23 18:59 06:59 18:59 Intake Total 680 80 430 Output Total 250 Balance 430 80 430 Weight 93.4 kg Intake: IV 680 80 190 Invasive Line 1 10 Piperacillin-Tazobactam 3 100 100 .375 gm In Sodium Chloride 0.9% 100 ml @ 25 mls/hr IVPB Q8H [facility] Rx#: [id number] Sodium Chloride 0.9% 1, 80 80 80 000 ml @ 10 mls/hr IV . Q24H [facility] Rx#:[id number] Vancomycin 1,500 mg In 500 Sodium Chloride 0.9% 500 ml 500 ml @ 167 mls/hr IVPB Q16H [facility] Rx#: [id number] Oral 240 Output: Urine 250 Other: Voiding Method Bedside Commode Bedside Commode Toilet # Voids 1 1 # Bowel Movements 1 2 1 - Labs CBC & Chem 7: 04/18/23 03:23 04/18/23 03:23 Labs: Abnormal Lab Results - Last 24 Hours (Table) 02/02/2604/17/23 04/18/23 Range/Units 16:38 21:27 03:23 Plt Count 121 L (150-450) k/uL Sodium (137-145) mmol/L Glucose (74-99) mg/dL POC Glucose (mg/dL) 144 H 134 H (70-110) mg/dL 04/18/23 04/18/23 04/18/23 Range/Units 03:23 06:28 11:35 Plt Count (150-450) k/uL Sodium 132 L (137-145) mmol/L Glucose 115 H (74-99) mg/dL POC Glucose (mg/dL) 140 H 120 H (70-110) mg/dL Microbiology - Last 24 Hours (Table) 04/16/23 14:37 Blood Culture - Preliminary Blood 04/15/23 13:58 Gram Stain - Preliminary Pleural Fluid Body Fluid Culture - Preliminary 04/14/23 22:18 Blood Culture Gram Stain - Final Blood Blood Culture - Final Staph hominis sub sp. hominis
[2023-04-18 16:13] LABS: Glucose,Whole Blood 155 mg/dL (70-110)
[2023-04-18] MEDS: metFORMIN 500 MG TAB PO SCH (17:18)
[2023-04-18 20:22] LABS: Glucose,Whole Blood 128 mg/dL (70-110)
[2023-04-19 06:05] LABS: Glucose,Whole Blood 93 mg/dL (70-110)
[2023-04-19 10:42] LABS: Glucose,Whole Blood 107 mg/dL (70-110)
--- NOTE | 2023-04-19 10:47 | P.PN ---
Subjective Progress Note Date: 04/19/23 Principal diagnosis: Acute hypoxic respiratory failure secondary to congestive heart failure with systolic dysfunction and large right-sided parapneumonic pleural effusion This is a 82-year-old female patient was currently being seen in the emergency department. The patient arrived to our hospital yesterday evening and the patient is currently being seen in the ICU, currently on a BiPAP at a pressure of 12 or 6 cm of water and FiO2 of 50%. Her breathing is labored while on the BiPAP and she is still tachypneic and she is able to generate a tidal volume around 450 while on the BiPAP. The patient initially presented to [facility] for shortness of breath. According to the family, the patient was having issues with constipation and she was taking laxatives at home. She was also having shortness of breath for the past 3 days. She refused to seek any medical attention. Denies having any abdominal pain. In the emergency, she was in acute respiratory distress and she was tachypneic and using accessory muscles of breathing. She has wheezing. She was given Xopenex. Her heart rate was around 130 and she was diaphoretic. She was given Lasix 40 mg IV and she was given also a dose of Solu-Medrol and initially she was placed on a nonrebreather and subsequently she was switched to a BiPAP. Noted the patient is known to have coronary artery disease. She has undergone previous bypass surgery in 2009. She also has history of CHF, and she has been followed by oncology regarding previous history of non-Hodgkin's lymphoma and according to her disease is in remission. She is also known to have diabetes mellitus and hyperlipidemia and she is obese. For now, the patient remains on a BiPAP. Triple-lumen catheter was inserted in the other hospital as the patient was briefly hypotensive. She was given Rocephin and Zithromax. I reviewed the chest x-ray from today and the patient has a very dense and extensive consolidation involving the entire right lung and the left lung remains clear from her airspace disease. There is obvious worsening in the opacification of the right hemithorax at this point. The patient is arousable and awake. Initia l white cell count was 19.5 dropped down to 9.5. Hemoglobin is at 14.2 dropped down to 13. Sodium level is at 127, potassium is at 5.3, BUN is 18 with a creatinine of 0.7. Troponin is at 0.10.2 and 0.3 respectively x 3. UA showing +1 protein, negative for any infection. The patient has not had a viral panel checked at this point. She is currently on IV heparin. On 06/15/2023, the patient is doing well. No specific complaints. She is off the BiPAP. Chest x-ray is still showing some residual pleural effusion on the right and the residual inflammatory changes in the right lung consistent with a pneumonia.The patient underwent a large-volume thoracentesis yesterday and the fluid analysis was not exudate based on elevated protein level. The white cell count was also mildly elevated at 1625, 64% lymphocytes. Cultures are still pending. Cytology still pending. Patient remains on a combination of Zosyn Zithromax and vancomycin. Echocardiogram was also done and the patient was fou nd to have an EF of around 25 to 30% and the patient had inferolateral hypokinesis. There was segmental wall motion abnormalities. She is awake and she is communicating. Procalcitonin level was at 0.48. The rest of the labs from today shows a white cell count of 13, hemoglobin of 12 and a platelet count of 153, sodium levels of 128, potassium is at 4.6, BUN is at 50 mg of 0.6. Troponin peaked at 0.3. Patient was evaluated on 04/17/2023, remains in the ICU, remains empirically on antibiotics in the form of vancomycin and Zosyn. Her echocardiogram showed severe LV dysfunction with ejection fraction of 20 to 25%. Considering her improvement after her right-sided thoracentesis, and the fluid turned out to be exudative in nature, patient remains in the meantime on antibiotics, and she s eems to have a likely contaminated blood culture. Patient remains on antibiotics, and remains on diuretics. Intermittently. Overall the patient is feeling better, she is on 2 L nasal cannula, not in distress. Basic metabolic profile is relatively normal renal profile is normal, chest x-ray showed improvement with patchy pleural-parenchymal opacities right hemithorax Patient was reevaluated today on 04/18/2023, remains in the ICU, patient is on room air, sitting at the bedside chair, remains on antibiotics empirically for her right-sided parapneumonic effusion. Cultures are negative so far, patient is receiving Zosyn. Her echocardiogram showed LV dysfunction with ejection fraction of 25 to 30%. Patient is not in any distress, her positive blood cultures for Staph hominis seem to be more likely a contamination from the skin, cultures from the pleural effusion are negative so far, nothing is growing, and negative Gram stain WBC count today is 7.1 hemoglobin 12.5, basic metabolic pr ofile is normal and renal profile is normal, cytology on the pleural effusion is pending. Chest x-ray from 04/17 showed mostly patchy pleural-parenchymal opacities in the right hemithorax. Patient was evaluated today on 04/19/2023, remains in the ICU as an overflow, she is on room air, remains on Zosyn for her pneumonia and right-sided parapneumonic pleural effusion, chest x-ray continues to show right upper lobe infiltrate and small right-sided pleural effusion. Clinically however the patient is doing great, relatively asymptomatic, no cough no wheezing no shortness of breath. WBC count is 7.1 hemoglobin is 12.5. Basic metabolic profile is normal and renal profile is normal cultures on the pleural effusion remain negative, cytology on the pleural effusion is negative for malignancy. Nonetheless the pleural effusion was clearly exudative in nature/parapneumonic. Objective - Vital Signs Vital signs: Vital Signs Temp 97.2 F L 04/19/23 08:00 Pulse 90 04/19/23 08:00 Resp 22 04/19/23 08:00 BP 121/47 04/19/23 08:00 Pulse Ox 94 L 04/19/23 08:00 FiO2 40 04/15/23 18:00 Intake & Output 04/18/23 04/19/23 04/19/23 18:59 06:59 18:59 Intake Total 1480 120 240 Output Total 500 150 1 Balance 980 -30 239 Weight 94.2 kg Intake: IV 400 120 Invasive Line 1 10 Invasive Line 3 10 20 Piperacillin-Tazobactam 3 300 100 .375 gm In Sodium Chloride 0.9% 100 ml @ 25 mls/hr IVPB Q8H [facility] Rx#: [id number] Sodium Chloride 0.9% 1, 80 000 ml @ 10 mls/hr IV . Q24H [facility] Rx#:[id number] Oral 1080 240 Output: Urine 500 150 Stool 1 Other: Voiding Method Toilet Toilet # Voids 1 2 1 # Bowel Movements 0 0 - Exam General: The patient is awake and alert, in no distress, and does not appear acutely ill. On room air Skin: Skin is warm and dry and no rashes or lesions are noted. Eye: Pupils are equal, round and reactive to light, extra-ocular movements are intact; there is normal conjunctiva bilaterally. Ears, nose, mouth and throat: There are moist mucous membranes and no oral lesions. Neck: The neck is supple, there is no tenderness or JVD. Cardiovascular: There is a regular rate and rhythm. No murmur, rub or gallop is appreciated. Respiratory: Slightly diminished breath sounds at the right base, left side is clear. Gastrointestinal: Soft, non-distended, non-tender abdomen without masses or organomegaly noted. There is no rebound or guarding present. Bowel sounds are unremarkable. Back: There is no tenderness to palpation in the midline. There is no obvious deformity. Musculoskeletal: Normal ROM, no tenderness, There is no pedal edema. There is no calf tenderness or swelling. No cords were appreciated. Neurological: CN II-XII intact, Cranial nerves III through XII are intact. There are no obvious motor or sensory deficits. Coordination appears grossly intact. Speech is normal. Psychiatric: Cooperative, appropriate mood & affect, normal judgment. - Labs CBC & Chem 7: 04/18/23 03:23 04/18/23 03:23 Labs: Abnormal Lab Results - Last 24 Hours (Table) 04/18/23 04/18/23 04/18/23 Range/Units 11:35 16:11 20:21 POC Glucose (mg/dL) 120 H 155 H 128 H (70-110) mg/dL Microbiology - Last 24 Hours (Table) 04/16/23 14:37 Blood Culture - Preliminary Blood 04/15/23 13:58 Gram Stain - Preliminary Pleural Fluid Body Fluid Culture - Preliminary Assessment and Plan Assessment: Impression: Acute hypoxic respiratory failure Right-sided parapneumonic effusion/exudative, negative cultures on the pleural effusion Acute congestive heart failure with impaired LV function ejection fraction of 25 to 30% Acute non-ST elevation myocardial infarction with elevated abnormal troponins Hypovolemic hypotension, improved with fluids, possible sepsis. Obesity with BMI of 31.6 History of non-Hodgkin's lymphoma History of CABG Type 2 diabetes without complications Rheumatoid arthritis Degenerative joint disease Recommendation: Transfer patient today to a cardiac floor. Consider repeat ultrasound on the chest since the pleural effusion seems to be coming back but the relatively small at this point Continue Zosyn. Gentle diuresis on this patient would be appropriate. Continue cardiac meds Continue subcu heparin Cytology of pleural effusion was negative Cultures on the pleural effusion are negative. Will continue to follow Time with Patient: Less than 30
[2023-04-19 11:40] LABS: Glucose,Whole Blood 105 mg/dL (70-110)
[2023-04-19] MEDS: FUROSEMIDE 10 MG/ML 2 ML VIAL IV SCH (11:56)
--- NOTE | 2023-04-19 14:02 | P.PN ---
Subjective Progress Note Date: 04/19/23 Patient is an 82-year-old female who was recently admitted with increased shortness of breath and not feeling well over the last few days and progressively becoming more weak and was brought here for further evaluation with pulmonary piano teacher following. Patient is in the ICU and patient is status post thoracentesis for the extensive right-sided pleural effusion currently awaiting on cytology. Cultures thus far been negative and patient is maintained on empiric antibiotics. Yesterday's chest x-ray showing some improvement and again pathology is pending. Patient is afebrile currently sitting up in the chair on room air denies worsening shortness of breath. Patient reports to feeling well and anticipating going home on discharge. Will have PT/OT therapy evaluate the patient. Patient is a transfer out of the ICU awaiting a bed on selective unit. 04/19/2023 Patient is seen and evaluated in follow-up today continues to be in the ICU awaiting a bed available for downgrade. Pulmonary piano teacher following and patient is status post right thoracentesis and cytology is showing reactive mesothelial cells with macrophages and mixed inflammatory cells with no malignant cells identified. Patient currently had repeat chest x-ray this morning that is pending. Patient is weaning FiO2 as tolerated and 94% on room air. Currently awaiting PT/OT therapy evaluation although patient reports she plans on returning home with family. Patient to continue on Zosyn and cultures thus far have been negative. Patient is currently afebrile with no reports of chest pain or worsening shortness of breath. Patient is tolerating diet and denies any nausea or vomiting. Review of systems: Constitutional: No reports of fatigue, fever, or chills Cardiovascular: No reports of chest pain or palpitations Respiratory: No reports of worsening shortness of breath or cough GI: No reports of nausea, no reports of vomiting, no diarrhea : No reports of dysuria or retention Neurovascular: reports of generalized weakness All medications have been reviewed Active Medications Aspirin (Aspirin 81 Mg) 81 mg PO DAILY [facility] Last Admin: 04/19/23 09:16 Dose: 81 mg Carvedilol (Carvedilol 6.25 Mg Tab) 6.25 mg PO AC-BID [facility] Last Admin: 04/19/23 06:46 Dose: 6.25 mg Cholecalciferol (Cholecalciferol 25 Mcg (1000 Iu) Tablet) 25 mcg PO DAILY [facility] Last Admin: 04/19/23 09:16 Dose: 25 mcg Cyanocobalamin (Cyanocobalamin 500 Mcg Tab) 1,000 mcg PO DAILY [facility] Last Admin: 04/19/23 09:16 Dose: 1,000 mcg Dextrose/Water (Dextrose 50% Syringe 50 Ml) 25 ml IVP PER PROTOCOL PRN; Protocol PRN Reason: Hypoglycemia Dextrose/Water (Dextrose 50% Syringe 50 Ml) 50 ml IVP PER PROTOCOL PRN; Protocol PRN Reason: Hypoglycemia Ferrous Sulfate (Ferrous Sulfate 325 Mg Tab) 325 mg PO DAILY [facility] Last Admin: 04/19/23 09:16 Dose: 325 mg Fluticasone Propionate (Fluticasone 50mcg/Hurley Nasal 16gm) 1 spray EA NOSTRIL DAILY [facility] Last Admin: 04/19/23 09:23 Dose: 1 spray Glipizide (Glipizide 5 Mg Tab) 5 mg PO AC-BID [facility] Last Admin: 04/19/23 06:46 Dose: 5 mg Heparin Sodium (Porcine) (Heparin Sodium,Porcine 5,000 Unit/Ml 1 Ml Vial) 5,000 unit SQ Q8HR [facility] Last Admin: 04/19/23 09:00 Dose: 5,000 unit Hydromorphone HCl (Hydromorphone 1 Mg/Ml 1 Ml Syringe) 1 mg IVP Q4HR PRN PRN Reason: Pain Piperacillin Sod/Tazobactam (Sod 3.375 gm/ Sodium Chloride) 100 mls @ 25 mls/hr IVPB Q8H [facility]; Protocol Last Admin: 04/19/23 09:17 Dose: 25 mls/hr Sodium Chloride (Saline 0.9%) 1,000 mls @ 10 mls/hr IV .Q24H [facility] Last Admin: 04/19/23 06:47 Dose: 10 mls/hr Insulin Aspart (Insulin Aspart (Novolog) 100 Unit/Ml Vial) 0 unit SQ ACHS [facility]; Protocol Last Admin: 04/19/23 06:33 Dose: Not Given Isosorbide Mononitrate (Isosorbide Mononitrate Er 30 Mg Tab.Er.24h) 30 mg PO DAILY [facility] Last Admin: 04/19/23 09:16 Dose: 30 mg Levothyroxine Sodium (Levothyroxine 100 Mcg Tab) 200 mcg PO DAILY@0630 [facility] Last Admin: 04/19/23 06:47 Dose: 200 mcg Lisinopril (Lisinopril 20 Mg Tab) 40 mg PO DAILY [facility] Last Admin: 04/19/23 09:16 Dose: 40 mg Metformin HCl (Metformin 500 Mg Tab) 1,000 mg PO AC-BID [facility] Last Admin: 04/19/23 06:46 Dose: 1,000 mg Miscellaneous Information (Magnesium Replacement Protocol 1 Each Misc) 1 each MISCELLANE DAILY PRN; Protocol PRN Reason: Per Protocol Naloxone HCl (Naloxone 0.4 Mg/Ml 1 Ml Vial) 0.2 mg IV Q2M PRN PRN Reason: Opioid Reversal Nitroglycerin (Nitroglycerin Sl Tabs 0.4 Mg Tab) 0.4 mg SUBLINGUAL Q5M PRN PRN Reason: Chest Pain Simvastatin (Zocor) (20 Mg Tablet) 20 mg PO HS [facility] Last Admin: 04/18/23 21:02 Dose: 20 mg Ondansetron HCl (Ondansetron 4 Mg/2 Ml Vial) 4 mg IVP Q8HR PRN PRN Reason: Nausea And Vomiting Pantoprazole Sodium (Pantoprazole 40 Mg Tablet) 40 mg PO AC-BRKFST [facility] Last Admin: 04/19/23 06:46 Dose: 40 mg Sodium Chloride (Sodium Chloride 0.65% Nasal Hurley 44 Ml Btl) 2 spray NASAL QID [facility] Last Admin: 04/19/23 09:23 Dose: 2 spray PHYSICAL EXAMINATION: GENERAL: The patient is alert and oriented x4, Well developed, well nourished. Obese, elderly appearing HEENT: Pupils are round and equally reacting to light. EOMI. no scleral icterus. No conjunctival pallor. Normocephalic, atraumatic. No pharyngeal erythema. No thyromegaly. CARDIOVASCULAR: S1 and S2 muffled PULMONARY: diminished breath sounds bilaterally with no wheezing, some faint scattered rhonchi noted. ABDOMEN: soft. Nontender on exam. obese. non-distended, normoactive bowel sounds. No palpable organomegaly. MUSCULOSKELETAL: No joint swelling or deformity. EXTREMITIES: No cyanosis, clubbing, or pedal edema. NEUROLOGICAL: Gross neurological examination did not reveal any focal deficits. Diffuse weakness SKIN: No rashes. Assessment: Acute hypoxic respiratory failure secondary to right-sided parapneumonic effusion, status postthoracentesis, cytology was negative for malignancy, pneumonia ruled out. Status post mechanical ventilation, currently on room air Acute on chronic congestive heart failure with systolic dysfunction, EF 25 to 30% NSTEMI with elevated abnormal troponins, likely secondary to CHF exacerbation, ACS ruled out Acute hypotension, hypovolemic on admission with features of possible sepsis, multifactorial likely secondary to pleural effusions and CHF exacerbation, sepsis ruled out Bacteremia, on admission with blood culture showing staph, likely contaminant as repeat blood cultures thus far remain negative Hyponatremia, improving History of coronary artery disease with CABG Diabetes mellitus, type II Hypertension history Hyperlipidemia history GI prophylaxis DVT prophylaxis Full code Plan: Recommend to continue with current medications and management with multiple medical consultations following including pulmonary and infectious disease along with cardiology. Patient is maintained on IV Zosyn and will continue and repeat blood cultures thus far have been negative. Patient is status post thoracentesis and cultures have been negative and pathology is also negative Patient continues in the ICU and being [facility]. sometime today Continue monitoring Accu-Cheks before meals and at bedtime and continue with current insulin regimen Encouraged increase activity as tolerated and will have PT/OT therapy evaluate the patient. Patient reports plan on returning home with family. Will await PT eval Will follow-up on repeat labs and monitor kidney functions and electrolytes closely Due to multiple complex medical issues, prognosis is guarded Possible discharge planning in the next 24 to 48 hours The impression and plan of care has been dictated by Kami Montoya, nurse practitioner as directed. Dr. Domo JOY I have performed a history and examination and MDM of this patient, discussed the same with the dictator, and agree with the dictator's assessment and plan as written ,documented as a scribe. Based on total visit time, I have performed more than 50% of the visit. Any additional findings or plans will be noted. Objective - Vital Signs Vital signs: Vital Signs Temp 97.2 F L 04/19/23 08:00 Pulse 90 04/19/23 08:00 Resp 22 04/19/23 08:00 BP 121/47 04/19/23 08:00 Pulse Ox 94 L 04/19/23 08:00 FiO2 40 04/15/23 18:00 Intake & Output 04/18/23 04/19/23 04/19/23 18:59 06:59 18:59 Intake Total 1480 120 240 Output Total 500 150 1 Balance 980 -30 239 Weight 94.2 kg Intake: IV 400 120 Invasive Line 1 10 Invasive Line 3 10 20 Piperacillin-Tazobactam 3 300 100 .375 gm In Sodium Chloride 0.9% 100 ml @ 25 mls/hr IVPB Q8H [facility] Rx#: [id number] Sodium Chloride 0.9% 1, 80 000 ml @ 10 mls/hr IV . Q24H [facility] Rx#:[id number] Oral 1080 240 Output: Urine 500 150 Stool 1 Other: Voiding Method Toilet Toilet # Voids 1 2 1 # Bowel Movements 0 0 - Labs CBC & Chem 7: 04/18/23 03:23 04/18/23 03:23 Labs: Abnormal Lab Results - Last 24 Hours (Table) 04/18/23 04/18/23 04/18/23 Range/Units 11:35 16:11 20:21 POC Glucose (mg/dL) 120 H 155 H 128 H (70-110) mg/dL Microbiology - Last 24 Hours (Table) 04/16/23 14:37 Blood Culture - Preliminary Blood 04/15/23 13:58 Gram Stain - Preliminary Pleural Fluid Body Fluid Culture - Preliminary
--- NOTE | 2023-04-19 14:51 | XR ---
EXAMINATION TYPE: XR chest 1V portable DATE OF EXAM: 04/19/2023 Comparison: 04/17/2023 Clinical History: 82-year-old female CHF Findings: Heart mildly enlarged. Median sternotomy wires and postoperative clips. Ongoing small right pleural e ffusion. Focal opacity periphery of the right upper lobe similar to increased. Left lung and pleural space are clear. Atherosclerotic arch calcifications. Impression: Ongoing small right pleural effusion with adjacent atelectasis and/or consolidation. There is similar to slightly increasing airspace disease in the periphery of the right upper lobe.
[2023-04-19 16:30] LABS: Glucose,Whole Blood 106 mg/dL (70-110)
[2023-04-19 20:26] LABS: Glucose,Whole Blood 113 mg/dL (70-110)
--- NOTE | 2023-04-19 22:16 | PN ---
PROGRESS NOTE SUBJECTIVE: Payton is an 82-year-old lady who is in the intensive care unit due to complex and multiple medical problems including respiratory failure, cardiomyopathy with severe LV dysfunction and known CAD. She is appearing comfortable at rest. Denies any difficulty in breathing. Leg edema had improved. CURRENT MEDICATIONS: 1. Coreg. 2. Lasix. 3. Imdur. 4. Synthroid. 5. Zestril. 6. Simvastatin. PHYSICAL EXAMINATION: GENERAL: Comfortable at rest. CHEST: Good air entry bilaterally. HEART: First and second heart sounds. Systolic murmur at the apex. ABDOMEN: Soft. EXTREMITIES: Reveals mild edema. Peripheral pulses are palpable. LABS: I do not have any labs from this morning. ASSESSMENT AND PLAN: 1. CAD, status post CABG. 2. Pneumonia with right-sided pleural effusion. I will continue the patient on IV Lasix. SHEILA / SETH: [id number] /
[2023-04-20 06:19] LABS: Glucose,Whole Blood 91 mg/dL (70-110)
[2023-04-20 10:43] LABS: Basophils % (A) 1 %; Eosinophils # (A) 0.5 k/uL (0-0.7); Eosinophils % (A) 5 %; HCT 39.9 % (34.0-46.0); HGB 13.3 gm/dL (11.4-16.0); Lymphocytes # (A) 2.3 k/uL (1.0-4.8); Lymphocytes % (A) 25 %; MCH 31.5 pg (25.0-35.0); MCHC 33.3 g/dL (31.0-37.0); MCV 94.5 fL (80.0-100.0); Mean Platelet Volume 8.8; Monocytes # (A) 0.6 k/uL (0-1.0); Monocytes % (A) 6 %; Neutrophils # (A) 5.8 k/uL (1.3-7.7); Neutrophils % (A) 63 %; Platelet Count 181 k/uL (150-450); RBC 4.22 m/uL (3.80-5.40); RDW 13.6 % (11.5-15.5); WBC 9.4 k/uL (3.8-10.6)
[2023-04-20 11:05] LABS: African American GFR (CKD) >90 (>60 ml/min/1.73 sqM); Anion Gap 9 mmol/L; Blood Urea Nitrogen 11 mg/dL (7-17); Calcium 9.3 mg/dL (8.4-10.2); Carbon Dioxide 24 mmol/L (22-30); Chloride 101 mmol/L (98-107); Glucose 83 mg/dL (74-99); Magnesium 1.4 mg/dL (1.6-2.3); Non-African American GFR(CKD) 79 (>60 ml/min/1.73 sqM); Potassium 4.2 mmol/L (3.5-5.1); Sodium 134 mmol/L (137-145)
--- NOTE | 2023-04-20 11:10 | P.PN ---
Subjective Progress Note Date: 04/19/23 Principal diagnosis: Reason for follow-up is positive blood culture and question of pneumonia Patient is a 82-year-old female with a past medical history significant for diabetes mellitus hypertension hyperlipidemia coronary artery disease and lymphoma presenting to the hospital with right-sided chest pain increasing shortness of breath patient did have a large effusion requiring thoracocentesis did have a positive blood culture Streptococcus hominis. On today's evaluation that is 04/19/2023,the patient denies any fever or any chills, patient is breathing comfortably on 2 L nasal cannula oxygen, the patient denies chest pain shortness of breath and no significant cough, patient denies abdominal pain, no nausea vomiting or diarrhea. No new symptoms Patient did have white count of 7.1 as of yesterday no CBC was done today blood culture to be so far negative Objective - Vital Signs Vital signs: Vital Signs Temp 97.2 F L 04/19/23 08:00 Pulse 90 04/19/23 08:00 Resp 22 04/19/23 08:00 BP 121/47 04/19/23 08:00 Pulse Ox 94 L 04/19/23 08:00 FiO2 40 04/15/23 18:00 Intake & Output 04/18/23 04/19/23 04/19/23 18:59 06:59 18:59 Intake Total 1480 120 240 Output Total 500 150 1 Balance 980 -30 239 Weight 94.2 kg Intake: IV 400 120 Invasive Line 1 10 Invasive Line 3 10 20 Piperacillin-Tazobactam 3 300 100 .375 gm In Sodium Chloride 0.9% 100 ml @ 25 mls/hr IVPB Q8H [facility] Rx#: [id number] Sodium Chloride 0.9% 1, 80 000 ml @ 10 mls/hr IV . Q24H [facility] Rx#:[id number] Oral 1080 240 Output: Urine 500 150 Stool 1 Other: Voiding Method Toilet Toilet # Voids 1 2 1 # Bowel Movements 0 0 - Exam GENERAL DESCRIPTION: Elderly female up in the chair in no distress RESPIRATORY SYSTEM: Unlabored breathing , decreased breath sounds at bases HEART: S1 S2 regular rate and rhythm , ABDOMEN: Soft , no tenderness EXTREMITIES: No edema feet - Labs CBC & Chem 7: 04/20/23 09:42 04/20/23 09:42 Labs: Abnormal Lab Results - Last 24 Hours (Table) 04/18/23 04/18/23 Range/Units 16:11 20:21 POC Glucose (mg/dL) 155 H 128 H (70-110) mg/dL Microbiology - Last 24 Hours (Table) 04/16/23 14:37 Blood Culture - Preliminary Blood 04/15/23 13:58 Gram Stain - Preliminary Pleural Fluid Body Fluid Culture - Preliminary Assessment and Plan (1) Positive blood culture Current Visit: Yes Status: Acute Code(s): R78.81 - BACTEREMIA SNOMED Code(s): 374904261 (2) Pneumonia Current Visit: Yes Status: Acute Code(s): J18.9 - PNEUMONIA, UNSPECIFIED ORGANISM SNOMED Code(s): 132718219 Plan: 1patient presented hospital with increasing shortness of breath right-sided chest pain more likely due to the right-sided effusion questionably cardiac in etiology as the pleural fluid was not exudative and mostly bloody underlying pneumonia less likely but not entirely excluded 2positive blood culture with Staphylococcus hominis more likely skin contamination and not a true pathogen, vancomycin has been discontinued, repeat blood cultures were negative 3patient currently covered with the [facility] hopefully short course of oral antibiotics on discharge if the culture remains to be negative Dictation was produced using [employer] dictation software. please excuse any grammatical, word or spelling errors. Time with Patient: Less than 30
[2023-04-20] MEDS ORDERED: Magnesium Replacement Protocol 1 EACH MISC MISCELLANE PRN (11:30)
[2023-04-20 11:35] LABS: Glucose,Whole Blood 84 mg/dL (70-110)
[2023-04-20] MEDS: MAGNESIUM SULFATE-D5W PMX 1 GM in DEXTROSE/WATER 1 100ML.BAG IVPB SCH (12:21)
--- NOTE | 2023-04-20 12:53 | P.PN ---
Subjective Progress Note Date: 04/20/23 Principal diagnosis: Reason for follow-up is positive blood culture and question of pneumonia Patient is a 82-year-old female with a past medical history significant for diabetes mellitus hypertension hyperlipidemia coronary artery disease and lymphoma presenting to the hospital with right-sided chest pain increasing shortness of breath patient did have a large effusion requiring thoracocentesis did have a positive blood culture Streptococcus hominis. On today's evaluation that is 04/20/2023,the patient remains to be afebrile, patient is on room air not requiring supplemental oxygen and denies any shortness of breath no chest pain occasional dry cough.Patient denies having any nausea or vomiting, no abdominal pain and no diarrhea has been reported. Patient white count 9.4, creatinine 0.71 Objective - Vital Signs Vital signs: Vital Signs Temp 97.9 F 04/20/23 12:00 Pulse 80 04/20/23 12:00 Resp 20 04/20/23 12:00 BP 113/69 04/20/23 12:00 Pulse Ox 93 L 04/20/23 12:34 FiO2 40 04/15/23 18:00 Intake & Output 04/19/23 04/20/23 04/20/23 18:59 06:59 18:59 Intake Total 598 120 10 Output Total 501 600 Balance 97 -480 10 Weight 86 kg Intake: IV 10 Invasive Line 4 10 Oral 598 120 Output: Urine 500 600 Stool 1 Other: Voiding Method Toilet Toilet Toilet # Voids 1 3 - Exam GENERAL DESCRIPTION: Elderly female up in the chair in no distress RESPIRATORY SYSTEM: Unlabored breathing , decreased breath sounds at bases HEART: S1 S2 regular rate and rhythm , ABDOMEN: Soft , no tenderness EXTREMITIES: No edema feet - Labs CBC & Chem 7: 04/20/23 09:42 04/20/23 09:42 Labs: Abnormal Lab Results - Last 24 Hours (Table) 04/19/23 04/20/23 Range/Units 20:25 09:42 Sodium 134 L (137-145) mmol/L POC Glucose (mg/dL) 113 H (70-110) mg/dL Magnesium 1.4 L (1.6-2.3) mg/dL Microbiology - Last 24 Hours (Table) 04/16/23 14:37 Blood Culture - Preliminary Blood 04/15/23 13:58 Gram Stain - Final Pleural Fluid Body Fluid Culture - Final Assessment and Plan (1) Positive blood culture Current Visit: Yes Status: Acute Code(s): R78.81 - BACTEREMIA SNOMED Code(s): 123505000 (2) Pneumonia Current Visit: Yes Status: Acute Code(s): J18.9 - PNEUMONIA, UNSPECIFIED ORGANISM SNOMED Code(s): 699878314 Plan: 1patient presented hospital with increasing shortness of breath right-sided chest pain more likely due to the right-sided effusion questionably cardiac in etiology as the pleural fluid was not exudative and mostly bloody underlying pneumonia less likely but not entirely excluded 2positive blood culture with Staphylococcus hominis more likely skin contamination and not a true pathogen, vancomycin has been discontinued, repeat blood cultures were negative 3patient to continue with the Zosyn while inpatient and short course of oral Augmentin on discharge Dictation was produced using [employer] dictation software. please excuse any grammatical, word or spelling errors. Time with Patient: Less than 30
--- NOTE | 2023-04-20 14:00 | P.PN ---
Subjective Progress Note Date: 04/20/23 History of present illness: This is an 82-year-old female treated in the intensive care unit for acute res piratory failure, cardiomyopathy with severe LV dysfunction and known coronary artery disease. Patient has been transferred to the cardiac stepdown unit. She is been maintained on IV Lasix and she continues to have improvement of the lower extremity edema. Chest x-ray from yesterday reveals ongoing right pleural effusion with adjacent atelectasis and or consolidation. Blood pressure 113/69, heart rate 80, pulse ox 93% on room air. Repeat blood work reveals hemoglobin 13.3, sodium 134, potassium 4.2, creatinine 0.71. Magnesium 1.4. Magnesium has been replaced. Physical examination: LUNGS: Good air entry bilaterally. No intercostal retractions. HEART: Regular rate and rhythm. Systolic murmur at the apex ABDOMEN: Soft No tenderness. EXTREMITIES: No pedal edema. No calf tenderness. NEUROLOGICAL: Patient is awake, alert and oriented x3. Assessment: Coronary artery disease status post CABG Pneumonia with right-sided pleural effusion Acute systolic heart failure Type II myocardial infarction secondary to oxygen supply demand mismatch Hypertension Dyslipidemia Diabetes Plan: Transition IV Lasix to oral 20 mg daily Continue other cardiac medications Patient is cleared from cardiology for discharge and may follow-up with Dr. Wheeler in 1 to 2 weeks.. Nurse practitioner note has been reviewed, I agree with documented findings and plan of care. Patient was seen and examined. Objective - Vital Signs Vital signs: Vital Signs Temp 98.3 F 04/20/23 07:45 Pulse 92 04/20/23 09:10 Resp 18 04/20/23 09:10 BP 132/78 04/20/23 07:45 Pulse Ox 94 L 04/20/23 07:45 FiO2 40 04/15/23 18:00 Intake & Output 04/19/23 04/20/23 04/20/23 18:59 06:59 18:59 Intake Total 598 120 10 Output Total 501 600 Balance 97 -480 10 Weight 86 kg Intake: IV 10 Invasive Line 4 10 Oral 598 120 Output: Urine 500 600 Stool 1 Other: Voiding Method Toilet Toilet Toilet # Voids 1 - Labs CBC & Chem 7: 04/20/23 09:42 04/20/23 09:42 Labs: Abnormal Lab Results - Last 24 Hours (Table) 04/19/23 04/20/23 Range/Units 20:25 09:42 Sodium 134 L (137-145) mmol/L POC Glucose (mg/dL) 113 H (70-110) mg/dL Magnesium 1.4 L (1.6-2.3) mg/dL Microbiology - Last 24 Hours (Table) 04/16/23 14:37 Blood Culture - Preliminary Blood 04/15/23 13:58 Gram Stain - Final Pleural Fluid Body Fluid Culture - Final
--- NOTE | 2023-04-20 14:21 | P.PN ---
Subjective Progress Note Date: 04/20/23 This is a 82-year-old female patient was currently being seen in the emergency department. The patient arrived to our hospital yesterday evening and the patient is currently being seen in the ICU, currently on a BiPAP at a pressure of 12 or 6 cm of water and FiO2 of 50%. Her breathing is labored while on the BiPAP and she is still tachypneic and she is able to generate a tidal volume around 450 while on the BiPAP. The patient initially presented to [facility] for shortness of breath. According to the family, the patient was having issues with constipation and she was taking laxatives at home. She was also having shortness of breath for the past 3 days. She refused to seek any medical attention. Denies having any abdominal pain. In the emergency, she was in acute respiratory distress and she was tachypneic and using accessory muscles of breathing. She has wheezing. She was given Xopenex. Her heart rate was around 130 and she was diaphoretic. She was given Lasix 40 mg IV and she was given also a dose of Solu-Medrol and initially she was placed on a nonrebreather and subsequently she was switched to a BiPAP. Noted the patient is known to have coronary artery disease. She has undergone previous bypass surgery in 2009. She also has history of CHF, and she has been followed by oncology regarding previous history of non-Hodgkin's lymphoma and according to her disease is in remission. She is also known to have diabetes mellitus and hyperlipidemia and she is obese. For now, the patient remains on a BiPAP. Triple-lumen catheter was inserted in the other hospital as the patient was briefly hypotensive. She was given Rocephin and Zithromax. I reviewed the chest x-ray from today and the patient has a very dense and extensive consolidation involving the entire right lung and the left lung remains clear from her airspace disease. There is obvious worsening in the opacification of the right hemithorax at this point. The patient is arousable and awake. Initia l white cell count was 19.5 dropped down to 9.5. Hemoglobin is at 14.2 dropped down to 13. Sodium level is at 127, potassium is at 5.3, BUN is 18 with a creatinine of 0.7. Troponin is at 0.10.2 and 0.3 respectively x 3. UA showing +1 protein, negative for any infection. The patient has not had a viral panel checked at this point. She is currently on IV heparin. On 06/15/2023, the patient is doing well. No specific complaints. She is off the BiPAP. Chest x-ray is still showing some residual pleural effusion on the right and the residual inflammatory changes in the right lung consistent with a pneumonia.The patient underwent a large-volume thoracentesis yesterday and the fluid analysis was not exudate based on elevated protein level. The white cell count was also mildly elevated at 1625, 64% lymphocytes. Cultures are still pending. Cytology still pending. Patient remains on a combination of Zosyn Zithromax and vancomycin. Echocardiogram was also done and the patient was fou nd to have an EF of around 25 to 30% and the patient had inferolateral hypokinesis. There was segmental wall motion abnormalities. She is awake and she is communicating. Procalcitonin level was at 0.48. The rest of the labs from today shows a white cell count of 13, hemoglobin of 12 and a platelet count of 153, sodium levels of 128, potassium is at 4.6, BUN is at 50 mg of 0.6. Troponin peaked at 0.3. Patient was evaluated on 04/17/2023, remains in the ICU, remains empirically on antibiotics in the form of vancomycin and Zosyn. Her echocardiogram showed severe LV dysfunction with ejection fraction of 20 to 25%. Considering her improvement after her right-sided thoracentesis, and the fluid turned out to be exudative in nature, patient remains in the meantime on antibiotics, and she s eems to have a likely contaminated blood culture. Patient remains on antibiotics, and remains on diuretics. Intermittently. Overall the patient is feeling better, she is on 2 L nasal cannula, not in distress. Basic metabolic profile is relatively normal renal profile is normal, chest x-ray showed improvement with patchy pleural-parenchymal opacities right hemithorax Patient was reevaluated today on 04/18/2023, remains in the ICU, patient is on room air, sitting at the bedside chair, remains on antibiotics empirically for her right-sided parapneumonic effusion. Cultures are negative so far, patient is receiving Zosyn. Her echocardiogram showed LV dysfunction with ejection fraction of 25 to 30%. Patient is not in any distress, her positive blood cultures for Staph hominis seem to be more likely a contamination from the skin, cultures from the pleural effusion are negative so far, nothing is growing, and negative Gram stain WBC count today is 7.1 hemoglobin 12.5, basic metabolic pr ofile is normal and renal profile is normal, cytology on the pleural effusion is pending. Chest x-ray from 04/17 showed mostly patchy pleural-parenchymal opacities in the right hemithorax. Patient was evaluated today on 04/19/2023, remains in the ICU as an overflow, she is on room air, remains on Zosyn for her pneumonia and right-sided parapneumonic pleural effusion, chest x-ray continues to show right upper lobe infiltrate and small right-sided pleural effusion. Clinically however the patient is doing great, relatively asymptomatic, no cough no wheezing no shortness of breath. WBC count is 7.1 hemoglobin is 12.5. Basic metabolic profile is normal and renal profile is normal cultures on the pleural effusion remain negative, cytology on the pleural effusion is negative for malignancy. Nonetheless the pleural effusion was clearly exudative in nature/parapneumonic. The patient is seen today April 20, 2023 in follow-up on the selective care unit. She was transferred out of the intensive care unit yesterday. She is awake and alert in no acute distress. She is sitting up in a chair at the bedside. She is maintaining good O2 saturations in the 90s on room air. Chest x-ray shows some ongoing small right pleural effusion with adjacent atelectasis. Airspace opacity in the right upper lobe. White count 9.4. Hemoglobin 13.3. Sodium 134. Potassium 4.2. Bicarb 24. BUN 11. Creatinine 0.71. Glucose 83. She remains on oral diuretics. Heparin for DVT prophylaxis. Antibiotics in the form of Zosyn. Objective - Vital Signs Vital signs: Vital Signs Temp 97.9 F 04/20/23 12:00 Pulse 80 04/20/23 12:00 Resp 20 04/20/23 12:00 BP 113/69 04/20/23 12:00 Pulse Ox 93 L 04/20/23 12:34 FiO2 40 04/15/23 18:00 Intake & Output 04/19/23 04/20/23 04/20/23 18:59 06:59 18:59 Intake Total 598 120 128 Output Total 501 600 Balance 97 -480 128 Weight 86 kg Intake: IV 10 Invasive Line 4 10 Oral 598 120 118 Output: Urine 500 600 Stool 1 Other: Voiding Method Toilet Toilet Toilet # Voids 1 3 - Exam General: Awake and alert, pleasant 82-year-old female, sitting up in a chair, in no distress. On room air Skin: Skin is warm and dry and no rashes or lesions are noted. Eye: Pupils are equal, round and reactive to light, extra-ocular movements are intact; there is normal conjunctiva bilaterally. Ears, nose, mouth and throat: There are moist mucous membranes and no oral lesions. Neck: The neck is supple, there is no tenderness or JVD. Cardiovascular: There is a regular rate and rhythm. No murmur, rub or gallop is appreciated. Respiratory: Slightly diminished breath sounds at the right base, left side is clear. Gastrointestinal: Soft, non-distended, non-tender abdomen without masses or organomegaly noted. There is no rebound or guarding present. Bowel sounds are un remarkable. Back: There is no tenderness to palpation in the midline. There is no obvious deformity. Musculoskeletal: Normal ROM, no tenderness, There is no pedal edema. There is no calf tenderness or swelling. No cords were appreciated. Neurological: CN II-XII intact, Cranial nerves III through XII are intact. There are no obvious motor or sensory deficits. Coordination appears grossly intact. Speech is normal. Psychiatric: Cooperative, appropriate mood & affect, normal judgment. - Labs CBC & Chem 7: 04/20/23 09:42 04/20/23 09:42 Labs: Abnormal Lab Results - Last 24 Hours (Table) 04/19/23 04/20/23 Range/Units 20:25 09:42 Sodium 134 L (137-145) mmol/L POC Glucose (mg/dL) 113 H (70-110) mg/dL Magnesium 1.4 L (1.6-2.3) mg/dL Microbiology - Last 24 Hours (Table) 04/16/23 14:37 Blood Culture - Preliminary Blood 04/15/23 13:58 Gram Stain - Final Pleural Fluid Body Fluid Culture - Final Assessment and Plan Assessment: Acute hypoxic respiratory failure secondary to an acute congestive heart failure with impaired LV function ejection fraction of 25 to 30% Right-sided parapneumonic effusion/exudative, negative cultures on the pleural effusion Acute non-ST elevation myocardial infarction with elevated abnormal troponins Hypovolemic hypotension, improved with fluids, possible sepsis. Obesity with BMI of 31.6 History of non-Hodgkin's lymphoma History of CABG Type 2 diabetes without complications Rheumatoid arthritis Degenerative joint disease Plan: The patient was seen and evaluated Chest x-ray, medications and labs reviewed Continued on Zosyn Transitioned to oral diuretics Stable and on room air Heparin for DVT prophylaxis We will continue to follow I have personally seen and examined the patient, performed the documentation and the assessment and plan as written. Number of minutes spent on the visit: 10.
[2023-04-20 16:29] LABS: Glucose,Whole Blood 89 mg/dL (70-110)
--- NOTE | 2023-04-20 18:27 | P.PN ---
Subjective Progress Note Date: 04/20/23 Patient is an 82-year-old female who was recently admitted with increased shortness of breath and not feeling well over the last few days and progressively becoming more weak and was brought here for further evaluation with pulmonary polymer specialist following. Patient is in the ICU and patient is status post thoracentesis for the extensive right-sided pleural effusion currently awaiting on cytology. Cultures thus far been negative and patient is maintained on empiric antibiotics. Yesterday's chest x-ray showing some improvement and again pathology is pending. Patient is afebrile currently sitting up in the chair on room air denies worsening shortness of breath. Patient reports to feeling well and anticipating going home on discharge. Will have PT/OT therapy evaluate the patient. Patient is a transfer out of the ICU awaiting a bed on selective unit. 04/19/2023 Patient is seen and evaluated in follow-up today continues to be in the ICU awaiting a bed available for downgrade. Pulmonary polymer specialist following and patient is status post right thoracentesis and cytology is showing reactive mesothelial cells with macrophages and mixed inflammatory cells with no malignant cells identified. Patient currently had repeat chest x-ray this morning that is pending. Patient is weaning FiO2 as tolerated and 94% on room air. Currently awaiting PT/OT therapy evaluation although patient reports she plans on returning home with family. Patient to continue on Zosyn and cultures thus far have been negative. Patient is currently afebrile with no reports of chest pain or worsening shortness of breath. Patient is tolerating diet and denies any nausea or vomiting. 04/20/2023 Patient is seen in follow-up this morning has been moved out of the ICU on selective being followed by pulmonary as well as infectious disease. Patient is maintained on IV Lasix and plan is for repeat chest x-ray in the a.m. to monitor effusion. Patient is status post right-sided thoracentesis and cytology has b een negative. Patient also with acute CHF exacerbation. Patient will continue on antibiotics for now and cultures have been negative and will discuss further with infectious disease on discharge planning. Encouraged increased activity as tolerated and awaiting PT/OT therapy evaluation. Magnesium was 1.4 today and will replace per protocol. Repeat labs ordered. Review of systems: Constitutional: No reports of fatigue, fever, or chills Cardiovascular: No reports of chest pain or palpitations Respiratory: No reports of worsening shortness of breath or cough GI: No reports of nausea, no reports of vomiting, no diarrhea : No reports of dysuria or retention Neurovascular: reports of generalized weakness All medications have been reviewed PHYSICAL EXAMINATION: GENERAL: The patient is alert and oriented x4, Well developed, well nourished. Obese, elderly appearing HEENT: Pupils are round and equally reacting to light. EOMI. no scleral icterus. No conjunctival pallor. Normocephalic, atraumatic. No pharyngeal erythema. No thyromegaly. CARDIOVASCULAR: S1 and S2 muffled PULMONARY: diminished breath sounds bilaterally with no wheezing, some faint scattered rhonchi noted. ABDOMEN: soft. Nontender on exam. obese. non-distended, normoactive bowel sounds. No palpable organomegaly. MUSCULOSKELETAL: No joint swelling or deformity. EXTREMITIES: No cyanosis, clubbing, or pedal edema. NEUROLOGICAL: Gross neurological examination did not reveal any focal deficits. Diffuse weakness SKIN: No rashes. Assessment: Acute hypoxic respiratory failure secondary to right-sided parapneumonic effusion, status postthoracentesis, cytology was negative for malignancy, pneumonia ruled out. Status post mechanical ventilation, currently on room air Acute on chronic congestive heart failure with systolic dysfunction, EF 25 to 30% NSTEMI with elevated abnormal troponins, likely secondary to CHF exacerbation, ACS ruled out Acute hypotension, hypovolemic on admission with features of possible sepsis, multifactorial likely secondary to pleural effusions and CHF exacerbation, se psis ruled out Bacteremia, on admission with blood culture showing staph, likely contaminant as repeat blood cultures thus far remain negative Hyponatremia, improving History of coronary artery disease with CABG Diabetes mellitus, type II Hypertension history Hyperlipidemia history GI prophylaxis DVT prophylaxis Full code Plan: Recommend to continue with current medications and management with multiple medical consultations following including pulmonary and infectious disease along with cardiology. Patient is maintained on IV Zosyn and will continue and repeat blood cultures thus far have been negative. Patient is status post thoracentesis and cultures have been negative and pathology is also negative Patient has been moved out of the ICU and improving. Patient being continued on low-dose IV Lasix with concerns of recurrent effusions per pulmonary and recommend follow-up chest x-ray in the a.m. Replacing magnesium and will follow-up with repeat labs in the a.m. Continue monitoring Accu-Cheks before meals and at bedtime and continue with current insulin regimen Encouraged increase activity as tolerated and will have PT/OT therapy evaluate the patient. Patient reports plan on returning home with family. Will await PT eval Will follow-up on repeat labs and monitor kidney functions and electrolytes closely Due to multiple complex medical issues, prognosis is guarded Possible discharge planning in the next 24 to 48 hours The impression and plan of care has been dictated by Kami Montoya, nurse practitioner as directed. Dr. Byron MD I have performed a history and examination and MDM of this patient, discussed the same with the dictator, and agree with the dictator's assessment and plan as written ,documented as a scribe. Based on total visit time, I have performed more than 50% of the visit. Any additional findings or plans will be noted. Wo man with Objective - Vital Signs Vital signs: Vital Signs Temp 98.3 F 04/20/23 07:45 Pulse 92 04/20/23 09:10 Resp 18 04/20/23 09:10 BP 132/78 04/20/23 07:45 Pulse Ox 94 L 04/20/23 07:45 FiO2 40 04/15/23 18:00 Intake & Output 04/19/23 04/20/23 04/20/23 18:59 06:59 18:59 Intake Total 598 120 10 Output Total 501 600 Balance 97 -480 10 Weight 86 kg Intake: IV 10 Invasive Line 4 10 Oral 598 120 Output: Urine 500 600 Stool 1 Other: Voiding Method Toilet Toilet Toilet # Voids 1 - Labs CBC & Chem 7: 04/20/23 09:42 04/20/23 09:42 Labs: Abnormal Lab Results - Last 24 Hours (Table) 04/19/23 04/20/23 Range/Units 20:25 09:42 Sodium 134 L (137-145) mmol/L POC Glucose (mg/dL) 113 H (70-110) mg/dL Magnesium 1.4 L (1.6-2.3) mg/dL Microbiology - Last 24 Hours (Table) 04/16/23 14:37 Blood Culture - Preliminary Blood 04/15/23 13:58 Gram Stain - Final Pleural Fluid Body Fluid Culture - Final
[2023-04-20 20:06] LABS: Glucose,Whole Blood 72 mg/dL (70-110)
[2023-04-20 20:31] LABS: Glucose,Whole Blood 81 mg/dL (70-110)
[2023-04-21 00:19] LABS: Glucose,Whole Blood 73 mg/dL (70-110)
[2023-04-21 00:48] LABS: Glucose,Whole Blood 104 mg/dL (70-110)
[2023-04-21 06:16] LABS: Glucose,Whole Blood 94 mg/dL (70-110)
[2023-04-21 07:09] VITALS: RESP 18
[2023-04-21 08:10] VITALS: BMI 31.0
[2023-04-21] MEDS: FUROSEMIDE 20 MG TAB PO SCH (08:25)
[2023-04-21 09:46] LABS: African American GFR (CKD) >90 (>60 ml/min/1.73 sqM); Anion Gap 4 mmol/L; Blood Urea Nitrogen 13 mg/dL (7-17); Calcium 8.9 mg/dL (8.4-10.2); Carbon Dioxide 26 mmol/L (22-30); Chloride 101 mmol/L (98-107); Glucose 122 mg/dL (74-99); Non-African American GFR(CKD) 82 (>60 ml/min/1.73 sqM); Sodium 131 mmol/L (137-145)
[2023-04-21 09:51] LABS: Magnesium 1.7 mg/dL (1.6-2.3); Potassium 4.5 mmol/L (3.5-5.1)
[2023-04-21 11:32] LABS: Glucose,Whole Blood 90 mg/dL (70-110)
--- NOTE | 2023-04-21 11:53 | XR ---
EXAMINATION TYPE: XR chest 1V portable DATE OF EXAM: 04/21/2023 Comparison: 04/19/2023 Clinical History: 82-year-old female Pneumonia Findings: Median sternotomy wires are present with post-CABG clips. Heart upper limits of normal in size. Patch y pleural-parenchymal opacities persist throughout the right lung with some underlying volume loss. A eration may be slightly improved. Left lung and pleural space appear clear. Impression: Patchy airspace disease throughout the right lung along with some asymmetric volume loss is similar t o slightly improved.
--- NOTE | 2023-04-21 12:55 | P.PN ---
Subjective Progress Note Date: 04/21/23 Principal diagnosis: Reason for follow-up is positive blood culture and question of pneumonia Patient is a 82-year-old female with a past medical history significant for diabetes mellitus hypertension hyperlipidemia coronary artery disease and lymphoma presenting to the hospital with right-sided chest pain increasing shortness of breath patient did have a large effusion requiring thoracocentesis did have a positive blood culture Streptococcus hominis. On today's evaluation that is 04/21/2023, the patient continues to be afebrile, the patient is on room air and breathing comfortably, the Pt denies having any chest pain or cough, the patient denies having any abdominal pain no vomiting or any diarrhea has been reported by the nursing staff, feeling better wants to go home. Patient did have a creatinine 0.66 blood culture repeat negative pleural fluid culture negative Objective - Vital Signs Vital signs: Vital Signs Temp 98.4 F 04/21/23 10:55 Pulse 79 04/21/23 10:55 Resp 18 04/21/23 10:55 BP 125/69 04/21/23 10:55 Pulse Ox 94 L 04/21/23 10:55 FiO2 40 04/15/23 18:00 Intake & Output 04/20/23 04/21/23 04/21/23 18:59 06:59 18:59 Intake Total 246 240 118 Balance 246 240 118 Weight 92.5 kg 92.5 kg Intake: IV 10 Invasive Line 4 10 Oral 236 240 118 Other: Voiding Method Toilet Toilet Toilet # Voids 1 1 # Bowel Movements 1 1 - Exam GENERAL DESCRIPTION: Elderly female up in the chair in no distress RESPIRATORY SYSTEM: Unlabored breathing , decreased breath sounds at bases HEART: S1 S2 regular rate and rhythm , ABDOMEN: Soft , no tenderness EXTREMITIES: No edema feet - Labs CBC & Chem 7: 04/20/23 09:42 04/21/23 08:48 Labs: Abnormal Lab Results - Last 24 Hours (Table) 04/21/23 Range/Units 08:48 Sodium 131 L (137-145) mmol/L Glucose 122 H (74-99) mg/dL Assessment and Plan (1) Positive blood culture Current Visit: Yes Status: Acute Code(s): R78.81 - BACTEREMIA SNOMED Code(s): 850283270 (2) Pneumonia Current Visit: Yes Status: Acute Code(s): J18.9 - PNEUMONIA, UNSPECIFIED ORGANISM SNOMED Code(s): 662533851 Plan: 1patient presented hospital with increasing shortness of breath right-sided chest pain more likely due to the right-sided effusion questionably cardiac in etiology as the pleural fluid was not exudative and mostly bloody underlying pneumonia less likely but not entirely excluded 2positive blood culture with Staphylococcus hominis more likely skin contamination and not a true pathogen, vancomycin has been discontinued, repeat blood cultures were negative 3patient has received about 7-day course of Zosyn with a culture negative Zosyn can be safely discontinued on discharge Dictation was produced using [employer] dictation software. please excuse any grammatical, word or spelling errors. Time with Patient: Less than 30
[2023-04-21 13:02] VITALS: BP 117/65; PULSE 85; TEMP 98
--- NOTE | 2023-04-21 13:49 | P.PN ---
Subjective Progress Note Date: 04/21/23 History of present illness: This is an 82-year-old female treated in the intensive care unit for acute res piratory failure, cardiomyopathy with severe LV dysfunction and known coronary artery disease. Patient has been transferred to the cardiac stepdown unit. She is been maintained on IV Lasix and she continues to have improvement of the lower extremity edema. Chest x-ray from yesterday reveals ongoing right pleural effusion with adjacent atelectasis and or consolidation. Blood pressure 113/69, heart rate 80, pulse ox 93% on room air. Repeat blood work reveals hemoglobin 13.3, sodium 134, potassium 4.2, creatinine 0.71. Magnesium 1.4. Magnesium has been replaced. 04/21 Yesterday, IV Lasix was transitioned to oral 20 mg daily. Blood pressure 117/65, heart rate 85. Repeat blood work reveals sodium 131, potassium 4.5, creatinine 0.66. Physical examination: LUNGS: Good air entry bilaterally. No intercostal retractions. HEART: Regular rate and rhythm. Systolic murmur at the apex ABDOMEN: Soft No tenderness. EXTREMITIES: No pedal edema. No calf tenderness. NEUROLOGICAL: Patient is awake, alert and oriented x3. Assessment: Coronary artery disease status post CABG Pneumonia with right-sided pleural effusion Acute systolic heart failure Type II myocardial infarction secondary to oxygen supply demand mismatch Hypertension Dyslipidemia Diabetes Plan: Continue Lasix oral 20 mg daily Continue other cardiac medications Patient is cleared from cardiology for discharge and may follow-up with Dr. Wheeler in 1 to 2 weeks.. Nurse practitioner note has been reviewed, I agree with documented findings and plan of care. Patient was seen and examined. Objective - Vital Signs Vital signs: Vital Signs Temp 98.4 F 04/21/23 10:55 Pulse 79 04/21/23 10:55 Resp 18 04/21/23 10:55 BP 125/69 04/21/23 10:55 Pulse Ox 94 L 04/21/23 10:55 FiO2 40 04/15/23 18:00 Intake & Output 04/20/23 04/21/23 04/21/23 18:59 06:59 18:59 Intake Total 246 240 118 Balance 246 240 118 Weight 92.5 kg 92.5 kg Intake: IV 10 Invasive Line 4 10 Oral 236 240 118 Other: Voiding Method Toilet Toilet Toilet # Voids 1 1 # Bowel Movements 1 1 - Labs CBC & Chem 7: 04/20/23 09:42 04/21/23 08:48 Labs: Abnormal Lab Results - Last 24 Hours (Table) 04/21/23 Range/Units 08:48 Sodium 131 L (137-145) mmol/L Glucose 122 H (74-99) mg/dL
--- NOTE | 2023-04-21 15:07 | P.PN ---
Subjective Progress Note Date: 04/21/23 Principal diagnosis: Acute hypoxic respiratory failure secondary to congestive heart failure with systolic dysfunction and large right-sided parapneumonic pleural effusion This is a 82-year-old female patient was currently being seen in the emergency department. The patient arrived to our hospital yesterday evening and the patient is currently being seen in the ICU, currently on a BiPAP at a pressure of 12 or 6 cm of water and FiO2 of 50%. Her breathing is labored while on the BiPAP and she is still tachypneic and she is able to generate a tidal volume around 450 while on the BiPAP. The patient initially presented to [facility] for shortness of breath. According to the family, the patient was having issues with constipation and she was taking laxatives at home. She was also having shortness of breath for the past 3 days. She refused to seek any medical attention. Denies having any abdominal pain. In the emergency, she was in acute respiratory distress and she was tachypneic and using accessory muscles of breathing. She has wheezing. She was given Xopenex. Her heart rate was around 130 and she was diaphoretic. She was given Lasix 40 mg IV and she was given also a dose of Solu-Medrol and initially she was placed on a nonrebreather and subsequently she was switched to a BiPAP. Noted the patient is known to have coronary artery disease. She has undergone previous bypass surgery in 2009. She also has history of CHF, and she has been followed by oncology regarding previous history of non-Hodgkin's lymphoma and according to her disease is in remission. She is also known to have diabetes mellitus and hyperlipidemia and she is obese. For now, the patient remains on a BiPAP. Triple-lumen catheter was inserted in the other hospital as the patient was briefly hypotensive. She was given Rocephin and Zithromax. I reviewed the chest x-ray from today and the patient has a very dense and extensive consolidation involving the entire right lung and the left lung remains clear from her airspace disease. There is obvious worsening in the opacification of the right hemithorax at this point. The patient is arousable and awake. Initia l white cell count was 19.5 dropped down to 9.5. Hemoglobin is at 14.2 dropped down to 13. Sodium level is at 127, potassium is at 5.3, BUN is 18 with a creatinine of 0.7. Troponin is at 0.10.2 and 0.3 respectively x 3. UA showing +1 protein, negative for any infection. The patient has not had a viral panel checked at this point. She is currently on IV heparin. On 06/15/2023, the patient is doing well. No specific complaints. She is off the BiPAP. Chest x-ray is still showing some residual pleural effusion on the right and the residual inflammatory changes in the right lung consistent with a pneumonia.The patient underwent a large-volume thoracentesis yesterday and the fluid analysis was not exudate based on elevated protein level. The white cell count was also mildly elevated at 1625, 64% lymphocytes. Cultures are still pending. Cytology still pending. Patient remains on a combination of Zosyn Zithromax and vancomycin. Echocardiogram was also done and the patient was fou nd to have an EF of around 25 to 30% and the patient had inferolateral hypokinesis. There was segmental wall motion abnormalities. She is awake and she is communicating. Procalcitonin level was at 0.48. The rest of the labs from today shows a white cell count of 13, hemoglobin of 12 and a platelet count of 153, sodium levels of 128, potassium is at 4.6, BUN is at 50 mg of 0.6. Troponin peaked at 0.3. Patient was evaluated on 04/17/2023, remains in the ICU, remains empirically on antibiotics in the form of vancomycin and Zosyn. Her echocardiogram showed severe LV dysfunction with ejection fraction of 20 to 25%. Considering her improvement after her right-sided thoracentesis, and the fluid turned out to be exudative in nature, patient remains in the meantime on antibiotics, and she s eems to have a likely contaminated blood culture. Patient remains on antibiotics, and remains on diuretics. Intermittently. Overall the patient is feeling better, she is on 2 L nasal cannula, not in distress. Basic metabolic profile is relatively normal renal profile is normal, chest x-ray showed improvement with patchy pleural-parenchymal opacities right hemithorax Patient was reevaluated today on 04/18/2023, remains in the ICU, patient is on room air, sitting at the bedside chair, remains on antibiotics empirically for her right-sided parapneumonic effusion. Cultures are negative so far, patient is receiving Zosyn. Her echocardiogram showed LV dysfunction with ejection fraction of 25 to 30%. Patient is not in any distress, her positive blood cultures for Staph hominis seem to be more likely a contamination from the skin, cultures from the pleural effusion are negative so far, nothing is growing, and negative Gram stain WBC count today is 7.1 hemoglobin 12.5, basic metabolic pr ofile is normal and renal profile is normal, cytology on the pleural effusion is pending. Chest x-ray from 04/17 showed mostly patchy pleural-parenchymal opacities in the right hemithorax. Patient was evaluated today on 04/19/2023, remains in the ICU as an overflow, she is on room air, remains on Zosyn for her pneumonia and right-sided parapneumonic pleural effusion, chest x-ray continues to show right upper lobe infiltrate and small right-sided pleural effusion. Clinically however the patient is doing great, relatively asymptomatic, no cough no wheezing no shortness of breath. WBC count is 7.1 hemoglobin is 12.5. Basic metabolic profile is normal and renal profile is normal cultures on the pleural effusion remain negative, cytology on the pleural effusion is negative for malignancy. Nonetheless the pleural effusion was clearly exudative in nature/parapneumonic. Reevaluate today on 04/21/2023, patient is feeling great, improving steadily, chest x-ray is showing improvement, hence I believe the patient should be considered for discharge home on Augmentin if cleared by other physicians on the case including cardiology and infectious disease. Basic metabolic profile today is relatively normal. Blood sugar is 9 0 patient is on room air, does not seem to be in any distress Objective - Vital Signs Vital signs: Vital Signs Temp 98.0 F 04/21/23 12:00 Pulse 85 04/21/23 12:00 Resp 18 04/21/23 10:55 BP 117/65 04/21/23 12:00 Pulse Ox 95 04/21/23 12:00 FiO2 40 04/15/23 18:00 Intake & Output 04/20/23 04/21/23 04/21/23 18:59 06:59 18:59 Intake Total 246 240 236 Balance 246 240 236 Weight 92.5 kg 92.5 kg Intake: IV 10 Invasive Line 4 10 Oral 236 240 236 Other: Voiding Method Toilet Toilet Toilet # Voids 1 1 2 # Bowel Movements 1 1 - Exam General: The patient is awake and alert, in no distress, and does not appear acutely ill. On room air Skin: Skin is warm and dry and no rashes or lesions are noted. Eye: Pupils are equal, round and reactive to light, extra-ocular movements are intact; there is normal conjunctiva bilaterally. Ears, nose, mouth and throat: There are moist mucous membranes and no oral lesions. Neck: The neck is supple, there is no tenderness or JVD. Cardiovascular: There is a regular rate and rhythm. No murmur, rub or gallop is appreciated. Respiratory: Lear bilaterally no crackles rhonchi or wheezes Gastrointestinal: Soft, non-distended, non-tender abdomen without masses or organomegaly noted. There is no rebound or guarding present. Bowel sounds are unremarkable. Back: There is no tenderness to palpation in the midline. There is no obvious deformity. Musculoskeletal: Normal ROM, no tenderness, There is no pedal edema. There is no calf tenderness or swelling. No cords were appreciated. Neurological: CN II-XII intact, Cranial nerves III through XII are intact. There are no obvious motor or sensory deficits. Coordination appears grossly i ntact. Speech is normal. Psychiatric: Cooperative, appropriate mood & affect, normal judgment. - Labs CBC & Chem 7: 04/20/23 09:42 04/21/23 08:48 Labs: Abnormal Lab Results - Last 24 Hours (Table) 04/21/23 Range/Units 08:48 Sodium 131 L (137-145) mmol/L Glucose 122 H (74-99) mg/dL Assessment and Plan Assessment: Impression: Acute hypoxic respiratory failure Right-sided parapneumonic effusion/exudative, negative cultures on the pleural effusion Acute congestive heart failure with impaired LV function ejection fraction of 25 to 30% Acute non-ST elevation myocardial infarction with elevated abnormal troponins Hypovolemic hypotension, improved with fluids, possible sepsis. Obesity with BMI of 31.6 History of non-Hodgkin's lymphoma History of CABG Type 2 diabetes without complications Rheumatoid arthritis Degenerative joint disease Recommendation: Similar discharge planning on this patient if cleared by other consultants Change Zosyn to Augmentin. Continue gentle diuresis. Continue cardiac meds Continue subcu heparin Cytology of pleural effusion was negative Cultures on the pleural effusion are negative. Again we will clear the patient for discharge if cleared by other consultants Time with Patient: Less than 30
[2023-04-21] MEDS ORDERED: AMOXIC-POT CLAV 875-125MG 1 EACH TAB PO SCH (21:00)
--- NOTE | 2023-04-23 10:49 | P.DS ---
Providers Date of admission: 04/14/23 22:08 Expected date of discharge: 04/21/23 Attending physician: Payton Oliveros Consults: 04/14/23 22:08 Consult Physician Routine Consulting Provider: Tosha Parsons Consult Reason/Comments: respFail Do you want consulting provider notified?: Yes 04/14/23 23:42 Consult Physician Urgent Consulting Provider: Racheal Long Consult Reason/Comments: nstemi Do you want consulting provider notified?: Yes 04/17/23 12:31 Consult Physician Routine Consulting Provider: Guero Narvaez Consult Reason/Comments: staph hominis in blood Do you want consulting provider notified?: Yes Primary care physician: Jeffrey Brownmdcolleen [facility] Course: Final diagnosis Acute hypoxic respiratory failure secondary to right-sided parapneumonic effusion, status postthoracentesis, cytology was negative for malignancy, pneumonia ruled out. Status post BiPAP use, currently on room air Acute on chronic congestive heart failure with systolic dysfunction, EF 25 to 30% NSTEMI with elevated abnormal troponins, likely secondary to CHF exacerbation, ACS ruled out Acute hypotension, hypovolemic on admission with features of possible sepsis, multifactorial likely secondary to pleural effusions and CHF exacerbation, sepsis ruled out Bacteremia, on admission with blood culture showing staph, likely contaminant as repeat blood cultures thus far remain negative Hyponatremia, improving History of coronary artery disease with CABG Diabetes mellitus, type II Hypertension history Hyperlipidemia history GI prophylaxis DVT prophylaxis Full code Discharge disposition Patient is being discharged in a stable condition with guarded prognosis to home. Patient will follow-up with Dr. Jeffrey Castillo in the outpatient setting upon discharge. Patient is to continue with oral Augmentin and close outpatient follow-up with pulmonary along with Lasix and cardiology follow-up as scheduled. Total time taken is greater than 35 minutes. Hospital course This is a 82-year-old female who was recently admitted with increasing shortness of breath hypoxic respiratory failure with right-sided parapneumonic effusion status postthoracentesis. Cytology was negative and cultures have been negative. Patient also with CHF exacerbation remained on IV Lasix and diuresed well will transition oral Lasix with close outpatient follow-up with cardiology as well as pulmonary. Patient is currently on room air and will continue oral Augmentin on discharge. Patient has been cleared by consultations and reports to feeling well would like to go home. Please refer to other consultation notes for further HPI. Currently no reports of chest pain, shortness of breath, or palpitations. Patient is afebrile. No reports of nausea or vomiting and patient is tolerating diet. Patient will be discharged home today. Physical exam: Gen: This is a 82-year-old female who is awake, alert and oriented x 3, well- developed, well-nourished, obese, elderly appearing HEENT: Head is atraumatic, normocephalic. Pupils equal, round. Sclerae is anicteric. NECK: Supple. No JVD. No lymphadenopathy. No thyromegaly. LUNGS: Diminished breath sounds bilaterally more so on the right otherwise clear to auscultation. Some scattered rhonchi. No intercostal retractions. HEART: Regular rate and rhythm. No murmur. No wheezes ABDOMEN: Soft. Bowel sounds are present. No masses. No tenderness. EXTREMITIES: No pedal edema. No calf tenderness. NEUROLOGICAL: Patient is awake, alert and oriented x3. Cranial nerves 2 through 12 are grossly intact. Please refer to medication reconciliation sheet for a list of medications. The impression and plan of care has been dictated by Kami Montoya, Nurse Practitioner as directed. Dr. Byron MD I have performed a history and examination and MDM of this patient, discussed the same with the dictator, and agree with the dictator's assessment and plan as written ,documented as a scribe. Based on total visit time, I have performed more than 50% of the visit. Patient Condition at Discharge: Fair Plan - Discharge Summary Discharge Rx Participant: No New Discharge Prescriptions: New Furosemide [Lasix] 20 mg PO DAILY #30 tab Amoxic-Pot Clav 875-125Mg [Augmentin 875-125] 1 each PO Q12HR 7 Days #14 tab Sodium Chloride 0.65% Nasal [Deep Sea (Saline)] 2 spray NASAL QID #5 ml Isosorbide Mononitrate ER [Imdur] 30 mg PO DAILY #30 tab Continue Ferrous Sulfate [Iron (65 MG Elemental)] 325 mg PO DAILY Cyanocobalamin (Vitamin B-12) [Vitamin B-12] 1,000 mcg PO DAILY glipiZIDE [Glucotrol] 5 mg PO BID carvediloL [Coreg] 6.25 mg PO BID Simvastatin [Zocor] 20 mg PO HS Omeprazole 40 mg PO DAILY Aspirin EC [Ecotrin Low Dose] 81 mg PO DAILY Fluticasone Nasal [place] [Flonase Nasal [place]] 1 spray EA NOSTRIL DAILY Cholecalciferol [Vitamin D3 (25 Mcg = 1000 Iu)] 25 mcg PO DAILY lisinopriL 40 mg PO DAILY metFORMIN HCL 1,000 mg PO BID Levothyroxine Sodium [Synthroid] 200 mcg PO DAILY Discontinued Meloxicam [Mobic] 7.5 mg PO DAILY Discharge Medication List Aspirin EC [Ecotrin Low Dose] 81 mg PO DAILY 04/14/23 [History] Cholecalciferol [Vitamin D3 (25 Mcg = 1000 Iu)] 25 mcg PO DAILY 04/14/23 [History] Cyanocobalamin (Vitamin B-12) [Vitamin B-12] 1,000 mcg PO DAILY 04/14/23 [History] Ferrous Sulfate [Iron (65 MG Elemental)] 325 mg PO DAILY 04/14/23 [History] Fluticasone Nasal [place] [Flonase Nasal [place]] 1 spray EA NOSTRIL DAILY 04/14/23 [History] Levothyroxine Sodium [Synthroid] 200 mcg PO DAILY 04/14/23 [History] Omeprazole 40 mg PO DAILY 04/14/23 [History] Simvastatin [Zocor] 20 mg PO HS 04/14/23 [History] carvediloL [Coreg] 6.25 mg PO BID 04/14/23 [History] glipiZIDE [Glucotrol] 5 mg PO BID 04/14/23 [History] lisinopriL 40 mg PO DAILY 04/14/23 [History] metFORMIN HCL 1,000 mg PO BID 04/14/23 [History] Amoxic-Pot Clav 875-125Mg [Augmentin 875-125] 1 each PO Q12HR 7 Days #14 tab 04/21/23 [Rx] Furosemide [Lasix] 20 mg PO DAILY #30 tab 04/21/23 [Rx] Isosorbide Mononitrate ER [Imdur] 30 mg PO DAILY #30 tab 04/21/23 [Rx] Sodium Chloride 0.65% Nasal [Deep Sea (Saline)] 2 spray NASAL QID #5 ml 04/21/23 [Rx] Follow up Appointment(s)/Referral(s): Paul Wheeler MD [Medical Doctor] - 1 Week (office will call you and make appointment ) Jeffrey Castillo MD [Primary Care Provider] - 1-2 days (office is closed please call and make appointment ) Tosha Parsons MD [STAFF PHYSICIAN] - 04/28/23 10:15 am Patient Instructions/Handouts: Heart Attack (DC), Heart Healthy Diet (ED), Seasoning Without Salt (GEN), Low-Sodium Diet (ED), Pneumonia (ED), Tho racentesis (DC) Activity/Diet/Wound Care/Special Instructions: To 50 limited until follow-up Follow-up with primary care provider on discharge Follow-up with pulmonary outpatient in 1 to 2 weeks Follow-up with cardiology in 1 to 2 weeks Continue taking medications as prescribed Discharge/Stand Alone Forms: Who Do I Call?, [facility] Resources Discharge Disposition: HOME SELF-CARE
== END 2023-04-21 15:24 | disposition home or self-care (01) | DRG 280 ==
LOC: EC 21:50 → 3SCARD 22:08 → 2SICU 04-15 09:53 → 3SCARD 04-19 13:17
PROVIDERS: ADMIT Hospitalist; ATTEND Hospitalist
PROC: 5A09357 Assistance with Respiratory Ventilation, Less than 24 Consecutive Hours, Continuous Positive Airway Pressure (ICD-10-PCS; principal; 2023-04-14)
PROC: 0W993ZX Drainage of Right Pleural Cavity, Percutaneous Approach, Diagnostic (ICD-10-PCS; 2023-04-15)
DX: I11.0 Hypertensive heart disease with heart failure (principal); I21.A1 Myocardial infarction type 2; I50.23 Acute on chronic systolic (congestive) heart failure; J18.9 Pneumonia, unspecified organism; J96.01 Acute respiratory failure with hypoxia; J44.1 Chronic obstructive pulmonary disease with (acute) exacerbation; J44.0 Chronic obstructive pulmonary disease with (acute) lower respiratory infection; J98.11 Atelectasis; E87.1 Hypo-osmolality and hyponatremia; J90 Pleural effusion, not elsewhere classified; I45.10 Unspecified right bundle-branch block; I42.9 Cardiomyopathy, unspecified; I25.10 Atherosclerotic heart disease of native coronary artery without angina pectoris; K59.00 Constipation, unspecified; M06.9 Rheumatoid arthritis, unspecified; M19.90 Unspecified osteoarthritis, unspecified site; Z68.31 Body mass index [BMI] 31.0-31.9, adult; E11.40 Type 2 diabetes mellitus with diabetic neuropathy, unspecified; I95.9 Hypotension, unspecified; E89.0 Postprocedural hypothyroidism; Z79.84 Long term (current) use of oral hypoglycemic drugs; E66.9 Obesity, unspecified; Z95.1 Presence of aortocoronary bypass graft; E78.5 Hyperlipidemia, unspecified; E86.1 Hypovolemia; E87.6 Hypokalemia; F41.9 Anxiety disorder, unspecified; Z79.1 Long term (current) use of non-steroidal anti-inflammatories (NSAID); Z79.82 Long term (current) use of aspirin; Z79.890 Hormone replacement therapy; Z79.899 Other long term (current) drug therapy; Z85.72 Personal history of non-Hodgkin lymphomas; Z87.01 Personal history of pneumonia (recurrent); Z87.891 Personal history of nicotine dependence; Z71.3 Dietary counseling and surveillance; Z88.5 Allergy status to narcotic agent; Z88.8 Allergy status to other drugs, medicaments and biological substances
CPT/HCPCS: 36415; 36600; 71045; 71260; 80048; 80053; 80061; 80202; 81001; 82805; 82945; 83036; 83605; 83735; 83880; 84100; 84145; 84157; 84484; 85025; 85027; 85049; 85610; 85730; 87040; 87070; 87077; 87186; 87205; 87636; 88108; 88305; 89050; 93005; 93306; 94660; 94760; 96361; 96365; 96366; 96375; 99291

== ENCOUNTER 2023-05-24 12:50 | Inpatient (IN) | payer MEDICARE ==
[2023-05-24 13:30] LABS: Glucose,Whole Blood 99 mg/dL (70-110)
[2023-05-24] MEDS: LACTATED RINGERS 1,000 ML IV SCH ×2 (13:31→18:34)
[2023-05-24] MEDS ORDERED: ROCURONIUM 10 MG/ML (5 ML VIAL) IV ONE (14:09)
[2023-05-24] MEDS ORDERED: PHENYLEPHRINE 10 MG/ML VIAL ONE (14:09)
[2023-05-24] MEDS ORDERED: LIDOCAINE 1% INJ 10MG/ML (20 ML MDV) ONE (14:09)
[2023-05-24] MEDS ORDERED: SUCCINYLCHOLINE CHLORIDE 200 MG/10 ML VIAL IV ONE (14:09)
[2023-05-24] MEDS ORDERED: GLYCOPYRROLATE 0.2 MG/ML 2 ML VIAL ONE (14:09)
[2023-05-24] MEDS ORDERED: NEOSTIGMINE 1 MG/ML 10 ML VIAL ONE (14:09)
[2023-05-24] MEDS ORDERED: ETOMIDATE 2 MG/ML 10 ML VIAL ONE (14:09)
--- NOTE | 2023-05-24 15:55 | P.PCN ---
Date of Procedure: 05/24/23 Operative Findings: Preoperative Diagnosis: Mediastinal lymphadenopathy Postoperative Diagnosis: Mediastinal lymphadenopathy Procedure(s) Performed: 1 flexible bronchoscopy, airway inspection 2 endoscopic ultrasound (EBUS) 3 transbronchial needle aspirate of station 10R and station 7 lymph nodes Surgeon: Tosha Parsons Estimated Blood Loss (ml): 0 Lucita pathology: other Condition: Patient developed postop atrial fibrillation Disposition: Patient will be admitted to tele Operative Findings: After obtaining the consent the patient was taken to the OR suite he was intubated and put on MV by anesthesia then the scope was advanced to the ET tube until the Trachea was seen and it was normal and then the juan carlos appears normal then the scope advanced to the left main and TERELL LB1-LB3 were seen and no endobronchial lesions were seen then the scope advanced to the lingula and the LB4 and LB5 were seen and no endobronchial lesions were seen the scope retracted and advanced to the left lower lobes LB6 to LB12 were seen one by one and no endobronchial lesions, then the scope was retracted back to the juan carlos and advanced to the Right main and RUL RB1 and RB2 and RB3 were seen one by one and no endobronchial lesions were seen the scope then retracted and advanced to the BI and RML RB4 and RB5 were seen and no endobronchial lesions were seen then it was retracted and advanced to the RLL RB6 to RB12 were seen one by one and no endobronchial lesions. Then EBUS was used and the lymph nodes were examined. Direct measurement of the mediastinal lymph nodes revealed a 9.5x16 mm station 10 R lymph node, a 7x10 mm station 7 lymph nodes. I performed transbronchial needle aspirate of station 7 and a total of 5 passes FNA without major bleeding station and 10 R lymph nodes were a total of 5 passes were obtained. No major bleeding and the scope was removed and taken out in total the patient was send to the floor in stable condition. While in recovery, the patient went into atrial fibrillation with rapid ventricular response. The patient's current heart rate is around 120. Hemodynamically stable. No significant hypotension. Awake and alert and moving all 4 extremities. Contacted the medical group. The patient is going to be started on Cardizem drip for rate control. The patient will be hospitalized to telemetry for new onset atrial fibrillation and rapid ventricular response. She is known to have cardiomyopathy along with history of coronary artery and previous bypass surgery.
[2023-05-24 16:17] LABS: Glucose,Whole Blood 110 mg/dL (70-110)
--- NOTE | 2023-05-24 17:58 | P.CNPUL ---
History of Present Illness Consult date: 05/24/23 Reason for consult: dyspnea History of present illness: This is a 82-year-old female patient was suspected to have malignancy. The patient has been having progressive worsening in her health status in general. She has not been eating. She has been extremely weak and debilitated. She was in the hospital approximately a month ago and at that time she came in with acute hypoxic respiratory failure and the patient was initially supported with BiPAP and subsequently was found to have a right-sided pleural effusion. I performed a bedside thoracentesis on this patient and a total of 1.6 L of fluid was aspirated and fluid cytology was negative for malignancy. Echocardiogram showed impaired LV function with an EF of around 25 to 30% and there was some mid to distal anterolateral wall hypokinesis and apical hypokinesis. The patient also had mild to moderate aortic valve calcification without any stenosis. She is subsequent CAT scan of the chest showed a loculated moderate- sized right-sided pleural effusion and irregular pleural wall thickening and the rind throughout the right hemithorax up to 1.3 cm in size and there was also what seems to be right upper lobe mass with extension into the mediastinum in addition to lymphadenopathy within the right hilum measuring around 2.3 cm in size and right suprahilar measuring 1.9 cm in size and in the subcarinal area in addition. There was a mass in the right upper lobe that is pleural-based opacity measuring 4.0 cm in size. Of significance was extensive pleural surface irregularity and nodular structures and this was obviously a manifestation of a neoplastic process and the concern was adenocarcinoma versus mesothelioma versus lymphoma as the patient is known to have a previous history of lymphoma. This was explained to the patient and the family members at length. Family was adamant in establishing a diagnosis. Based on that, the patient was brought in today patient underwent an endobronchial ultrasound under general anesthesia. I did not biopsy the right upper lobe mass. I was going more conservative because of her medical problems and I ended up doing a transbronchial needle aspirate of station 10 R and station 7 lymph nodes. Note that following her procedure, the patient was extubated and she got transferred to recovery where she went into A- fib RVR. I ordered Cardizem drip and this was not started and by the time she was about to start the Cardizem she converted to normal sinus rhythm. I discussed the findings with the family. The family told me that the patient's condition was progressively getting worse and she was not eating and they were very much concerned about her health in general and they wanted to keep her in the hospital. As such, the patient will be hospitalized to telemetry unit. She is known to have a left atrial ejection fraction of 25%. She is also known to have history of rheumatoid arthritis and she is currently off Remicade. She has diabetes mellitus type 2, coronary artery disease, hyperlipidemia, hyperlipidemia, remote history of non-Hodgkin's lymphoma. Review of Systems Patient reports shortness of breath when walking but reports no chest pain, no arm pain on exertion, no shortness of breath when lying down, no palpitations, and no known heart murmur. She reports cough and shortness of breath but reports no wheezing, no coughing up blood, and no sleep apnea. She reports fatigue. She reports no fever, no night sweats, no significant weight gain, no significant weight loss, and no exercise intolerance. She reports no dry eyes, no vision change, and no irritation. She reports no difficulty hearing and no ear pain. She reports no frequent nosebleeds, no nose problems, and no sinus problems. She reports no sore throat, no bleeding gums, no snoring, no dry mouth, no mouth ulcers, no oral abnormalities, and no teeth problems. She reports no abdominal pain, no nausea, no vomiting, no constipation, normal appetite, no diarrhea, not vomiting blood, no dyspepsia, and no GERD. She reports no incontinence, no difficulty urinating, no hematuria, and no increased frequency. She reports no muscle aches, no muscle weakness, no arthralgias/joint pain, no back pain, and no swelling in the extremities. She reports no abnormal mole, no jaundice, no rashes, and no laceration. She reports no loss of consciousness, no weakness, no numbness, no seizures, no dizziness, no migraines, no headaches, and no tremor. She reports no depression, no sleep disturbances, feeling safe in a relationship, no alcohol abuse, no anxiety, no hallucinations, and no suicidal thoughts. She reports no swollen glands, no bruising, and no excessive bleeding. She reports no runny nose, no sinus pressure, no itching, no hives, and no frequent sneezing. Past Medical History Past Medical History: Coronary Artery Disease (CAD), Cancer, Chest Pain / Angina, Heart Failure, Diabetes Mellitus, Hyperlipidemia, Hypertension, Myocardial Infarction ([place]), Osteoarthritis (OA), Respiratory Disorder, Rheumatoid Arthritis (RA), Thyroid Disorder Additional Past Medical History / Comment(s): 04/2023 admitted to [facility] with acute hypoxic respiratory failure/R parapneumonic effusio/had thoracentesis/chf/NSTEMI. Other hx: Abnormal cat scan of chest, SOB at all times and weak, appetite very poor so taken off diabetic medications, hypothyroidism, neuropathy, 2013 lymphoma both sides of jaw/surgery one side/chemotherapy Last Myocardial Infarction Date:: 04/2023 History of Any Multi-Drug Resistant Organisms: None Reported Past Surgical History: Coronary Bypass/CABG, Heart Catheterization, Hysterectomy, Orthopedic Surgery Additional Past Surgical History / Comment(s): Partial thyroidectomy, 2009 CABG 4 vessel, R side jaw/neck surgery, bilateral carpal tunnel release Past Anesthesia/Blood Transfusion Reactions: No Reported Reaction Smoking Status: Former smoker - Past Family History Father Family Medical History: Cancer Additional Family Medical History / Comment(s): at 59 from cancer. Mother Family Medical History: Myocardial Infarction ([place]) Additional Family Medical History / Comment(s): of [place] at 55yrs. Medications and Allergies Home Medications Medication Instructions Recorded Confirmed Type Aspirin EC [Ecotrin Low Dose] 81 mg PO QAM 04/14/23 05/24/23 History Cholecalciferol [Vitamin D3 (25 25 mcg PO QAM 04/14/23 05/24/23 History Mcg = 1000 Iu)] Cyanocobalamin (Vitamin B-12) 1,000 mcg PO QAM 04/14/23 05/24/23 History [Vitamin B-12] Ferrous Sulfate [Iron (65 MG 325 mg PO QAM 04/14/23 05/24/23 History Elemental)] Levothyroxine Sodium [Synthroid] 200 mcg PO QAM 04/14/23 05/24/23 History Omeprazole 40 mg PO QAM 04/14/23 05/24/23 History Simvastatin [Zocor] 20 mg PO HS 04/14/23 05/24/23 History carvediloL [Coreg] 6.25 mg PO BID 04/14/23 05/24/23 History lisinopriL 40 mg PO QAM 04/14/23 05/24/23 History Furosemide [Lasix] 20 mg PO QAM 05/23/23 05/24/23 History Ibuprofen 600 mg PO Q8H PRN 05/23/23 05/24/23 History Isosorbide Mononitrate ER [Imdur] 30 mg PO QAM 05/23/23 05/24/23 History Allergies Allergy/AdvReac Type Severity Reaction Status Date / Time atorvastatin [From Lipitor] Allergy Swelling Verified 05/24/23 13:19 bisacodyl Allergy Rash/Hives Verified 05/24/23 13:19 [From Dulcolax (bisacodyl)] carisoprodol [From Soma] Allergy Unknown Verified 05/24/23 13:19 morphine Allergy Vomiting Verified 05/24/23 13:19 orphenadrine Allergy Unknown Verified 05/24/23 13:19 pseudoephedrine Allergy Rash/Hives Verified 05/24/23 13:19 [From Sudafed] tramadol [From Ultram] Allergy Unknown Verified 05/24/23 13:19 Physical Exam Vitals: Vital Signs Temp Pulse Resp BP Pulse Ox 05/24/23 16:53 75 24 108/52 92 L 05/24/23 16:42 80 21 90/41 93 L 05/24/23 16:27 78 21 100/46 93 L 05/24/23 16:12 80 26 H 112/48 94 L 05/24/23 15:57 94 24 94/46 94 L 05/24/23 15:42 123 H 26 H 85/62 94 L 05/24/23 15:27 121 H 26 H 114/58 94 L 05/24/23 15:12 97.4 F L 124 H 18 99/73 95 05/24/23 13:24 97.1 F L 77 20 129/60 90 L Intake and Output 05/24/23 05/24/23 05/24/23 06:59 14:59 22:59 Intake Total 500 300 Balance 500 300 Intake: IV 500 300 Other: Weight 79.3 kg General Appearance no diaphoresis, dyspnea, pallor, or respiratory distress and speech not interrupted by breaths, not cachectic, well nourished, and appears well. HEENT no pursed lip breathing, jugular venous distention, mucous membrane cyanosis, or perioral cyanosis and mallampati classification: class 1 and Mallampati Classification: Class 4. Chest no retractions, rhonchi, hyperinflation, barrel chest, sternocleidomastoid muscle contractions, supraclavicular retractions, intercostal retractions, prolonged expiratory wheezing, or decreased air movement and decreased air movement and (normal) adventitious sounds: rales / crackles: bilaterally: midlung white. Heart no right ventricular heave, distant heart sounds, or s3 gallop and (normal) jugular vein and vein: jugular venous distention: by 0cm. GI bowel sounds: hyperactive (borborygmi) and diminished or absent. Extremities no cyanosis or clubbing and edema. Neurologic no somnolence, confusion, or decreased mental status. Assisstive Devices: ambulates with no assitive devices and ambulates with walker. Gait and Mobility: gait WNL and full weight bearing.Skin: General Appearance normal and (normal) normal except as noted. Assessment and Plan Plan: New onset atrial fibrillation with RVR, converted to normal sinus rhythm and the patient Is currently hemodynamically stable. The procedure occurred following the bronchoscopy as the procedure was done under general anesthesia. Cardiology to be consulted. Acute hypoxic respiratory failure post bronchoscopy and the patient is currently on oxygen by nasal cannula the flow to be titrated to maintain saturation above 90%. Chest x-ray is to follow Lung mass -lung with extensive mediastinal lymphadenopathy and pleural thickening and loculated pleural effusion. Findings are highly suspicious for malignancy. Right upper lobe masslike consolidation measuring 4.0 cm in addition to extensive mediastinal lymphadenopathy involving the paratracheal, right hilar and suprahilar area and the patient has significant pleural surface irregularities and multiloculated right-sided pleural effusions. The findings are highly suspicious for malignancy. Possibilities include adenocarcinoma of the lung, mesothelioma, and lymphoma. Note that the pleural surface is quite thickened and is reaching approximately 1.3 cm with significant irregularities and previous thoracentesis yielded no final pathology diagnosis. Nevertheless, the findings are highly suspicious for malignancy. Patient and the family was made aware. She has a poor baseline performance and functional status. She may not be a candidate for any treatment if the diagnosis of malignancy established. Nevertheless, patient and family are highly interested in establishing a final diagnosis and for that reason I offered the patient a relatively less invasive procedure which would include an endobronchial ultrasound and biopsy of the mediastinal lymph nodes. Mediastinal lymphadenopathy -detail discussed above Chest wall pain -Irregular pleural surface border with multiple nodularities and secondary pain. This is likely malignant process. Rule out mesothelioma versus adenocarcinoma versus lymphoma. Offered nonsteroidal anti-inflammatory medications for pain control. Pleural effusion - This patient came into the hospital because of an acute hypoxic respiratory failure and she was on a BiPAP and she was transferred to us from [facility]. The patient had significant opacification of the right lung. I did a emergent thoracentesis on her and removed approximately 1.6 to 2 L of pleural fluid from the right lung. The fluid was exudative. The fluid cytology came back negative for malignancy. Initial impression was a parapneumonic effusion and the patient was treated with antibiotics. Follow-up chest x-ray still showing an opacity in the right upper lobe along with some right pleural irregularities and thickening and there is a pleural-based opacity. A follow-up CAT scan of the chest showed similar findings of multiloculated right-sided pleural effusion along with extensive pleural surface irregularities abnormalities highly suspicious for malignancy. She also has a right upper lobe mass measuring 4.0 cm. Coronary arteriosclerosis - She is post CABG and she had surgery on 2009 and she will FU with Dr Wheeler Chronic systolic heart failure -Systolic heart failure diagnosed by an echocardiogram that was done in the hospital and the patient has ejection fraction of 25% and she has some edema in lower extremities and she is seeing cardiology and she is currently on diuretics and she is taking Lasix at a dose of 40 mg once a day Non-Hodgkin's lymphoma (clinical) -She is in remission and she was diagnosed in 2013 and she has completed the chemotherapy . This involved the jaw and the head and neck C85.90: Non-Hodgkin lymphoma, unspecified, unspecified site Type 2 diabetes mellitus - Maintained on Metformin and glyburide Rheumatoid arthritis - On no treatment and she is off Ramicade Medical debility along with weight loss and diminished appetite and failure to thrive. Plan Titrate oxygen flow to maintain a saturation above 90% Obtain a chest x-ray Bronchoscopy and endobronchial ultrasound and biopsy of the mediastinal lymph nodes have been completed. Pending results. I am hopeful that those will give us tissue diagnosis to establish a final diagnosis on this patient. Management of atrial fibrillation per cardiology The patient will be admitted to telemetry Resume home medications May consider thoracentesis of the right lung if there is significant shortness of breath The long-term prognosis poor based on above-mentioned comorbidities. Family is aware. Will continue to follow. Will address her CODE STATUS in addition.
[2023-05-24] MEDS: ASPIRIN 81 MG PO SCH (18:34)
--- NOTE | 2023-05-24 18:57 | XR ---
EXAMINATION TYPE: XR chest 1V DATE OF EXAM: 05/24/2023 6:20 PM CLINICAL INDICATION:Female, 82 years old with history of Postbiopsy; [facility] COMPARISON: 05/16/2023 and before TECHNIQUE: XR chest 1V Portable AP radiograph of the chest.. FINDINGS: Lines/Tubes/Devices: EKG leads overlie the chest. No indwelling lines are seen. Heart/mediastinum: Heart size is difficult to evaluate but likely at least mildly enlarged. Left atri al appendage occlusion device. Moderate calcification of the aorta. Sternotomy wires with mediastinal clips. Mediastinum appears stable. Pulmonary vascularity: Not increased, Lungs/Pleura: Diffusely coarsened interstitial lung markings again seen bilaterally, suggesting backg round chronic changes. Known approximately 4 cm mass in the right upper lobe is obscured by slightly increasing surrounding airspace and interstitial opacities. Opacity suggesting loculated pleural effu mirian tracking from the lung base cranially and laterally appears slightly greater. No visualized pneu mothorax bilaterally. Musculoskeletal: No acute osseous abnormality demonstrated in the limits of the exam. Mild degenerat steve changes. No acute bony pathology. Other findings: None. IMPRESSION: 1. Cardiomegaly and post operative changes. 2. Slight interval worsening of right lung interstitial and airspace opacities, may represent edema, atelectasis, and/or postbiopsy changes, with superimposed infectious process not excluded. The known 4 cm right upper lobe lung mass is largely obscured. 3. Loculated right pleural effusion has slightly increased. 4. No evidence of pneumothorax.
[2023-05-24 19:02] LABS: Basophils # (A) 0.1 k/uL (0-0.2); Basophils % (A) 1 %; Eosinophils # (A) 0.4 k/uL (0-0.7); Eosinophils % (A) 4 %; HGB 13.1 gm/dL (11.4-16.0); Hypochromasia Moderate; Lymphocytes # (A) 2.5 k/uL (1.0-4.8); Lymphocytes % (A) 26 %; MCH 30.8 pg (25.0-35.0); MCHC 31.3 g/dL (31.0-37.0); MCV 98.4 fL (80.0-100.0); Mean Platelet Volume 8.5; Monocytes # (A) 0.6 k/uL (0-1.0); Monocytes % (A) 6 %; Neutrophils # (A) 6.1 k/uL (1.3-7.7); Neutrophils % (A) 62 %; Platelet Count 141 k/uL (150-450); RBC 4.27 m/uL (3.80-5.40); RDW 14.6 % (11.5-15.5); WBC 9.8 k/uL (3.8-10.6)
[2023-05-24 19:14] LABS: ALT 13 U/L (4-34); AST 26 U/L (14-36); African American GFR (CKD) 69 (>60 ml/min/1.73 sqM); Albumin 3.2 g/dL (3.5-5.0); Alkaline Phosphatase 58 U/L (38-126); Anion Gap 12 mmol/L; Blood Urea Nitrogen 69 mg/dL (7-17); Calcium 10.2 mg/dL (8.4-10.2); Carbon Dioxide 14 mmol/L (22-30); Chloride 111 mmol/L (98-107); Glucose 100 mg/dL (74-99); Non-African American GFR(CKD) 60 (>60 ml/min/1.73 sqM); Sodium 137 mmol/L (137-145); Total Bilirubin 0.7 mg/dL (0.2-1.3); Total Protein 6.1 g/dL (6.3-8.2)
[2023-05-24 19:23] LABS: NT-Pro-B-Type Natriuretic Pept 1080 pg/mL
[2023-05-24 20:38] LABS: Glucose,Whole Blood 80 mg/dL (70-110)
[2023-05-24] MEDS: carvediloL 6.25 MG TAB PO SCH (20:38)
[2023-05-24] MEDS: NON FORMULARY DRUG (Simvastatin 20 MG Tab) PO SCH (21:28)
--- NOTE | 2023-05-24 22:04 | P.HPIM ---
History of Present Illness H&P Date: 05/24/23 Chief Complaint: Atrial fibrillation Patient is a 82-year-old female with a past medical history of coronary artery disease status post quadruple bypass in 2009 in [place], history of non- Hodgkin's lymphoma, hypertension, diabetes type 2, hyperlipidemia, history of [place] , osteoarthritis, rheumatoid others, hypothyroidism. Patient was brought to the hospital for bronchoscopy with endoscopic ultrasound and DVT aspiration biopsy of the mediastinal lymph node.. Postprocedure while in the recovery room patient went into atrial fibrillation with rapid ventricular rate and heart rate went up to 130s. EKG showed atrial fibrillation with rapid ventricular rate. Cardizem drip was ordered but before starting the infusion patient converted back to sinus rhythm and heart rate came down to 70s. She was admitted to the hospital for further evaluation Patient was recently admitted to the hospital from 04/15/2023 to 04/21/2023. She is admitted due to worsening shortness of breath, requiring BiPAP. Patient was also found to have right-sided pleural effusion status post paracentesis showed reactive mesothelial cells, macrophages and mixed inflammatory cells. No c cyt ologically malignant cells identified. CT chest on 04/15/2023 showed large right-sided pleural effusion. Repeat CT on 05/07/2023 showed decreasing but residual moderate right pleural effusion, however there is worsening irregular dural thickening/throughout the right hemithorax now measuring up to 1.3 cm thick versus 1.0 cm previously. Focal subpleural soft tissue anteromedial right lower lung measures up to 3.3 cm and appears new. New diffuse subpleural nodularity along the right-sided lung fissures. Correlate for slight interval neoplastic disease present progression, possible lymphoma. Currently patient denies any complaints of chest pain. No worsening shortness of breath. Denies any palpitations. No nausea vomiting abdominal pain or diarrhea. Patient is on Ventimask which is being titrated down to nasal cannula oxygen. No complaints of fever or chills. No diarrhea. No cough or sputum production. Denies any worsening leg swelling recently. Review of Systems Constitutional: Patient denies any fever or chills . No generalized weakness or weight loss. Abdomen: Patient denied nausea vomiting and diarrhea and abdominal pain. Cardiovascular: Patient denies any chest pain or short of breath no palpitations. No worsening leg swelling. Respiratory: patient denied any cough is from production. No shortness of breath Neurologic: Patient denied any numbness or tingling headache. Musculoskeletal: Patient denies any complaints of joint swelling or deformity. Skin: Negative Psychiatric: Negative Endocrine: No heat or cold intolerance. No recent weight gain. Genitourinary: No dysuria or hematuria. All other 14 point ROS negative except the above Past Medical History Past Medical History: Coronary Artery Disease (CAD), Cancer, Chest Pain / Angina, Heart Failure, Diabetes Mellitus, Hyperlipidemia, Hypertension, Myocardial Infarction ([place]), Osteoarthritis (OA), Respiratory Disorder, Rheumatoid Arthritis (RA), Thyroid Disorder Additional Past Medical History / Comment(s): 04/2023 admitted to [facility] with acute hypoxic respiratory failure/R parapneumonic effusio/had thoracentesis /chf/NSTEMI. Other hx: Abnormal cat scan of chest, SOB at all times and weak, appetite very poor so taken off diabetic medications, hypothyroidism, neuropathy, 2013 lymphoma both sides of jaw/surgery one side/chemotherapy Last Myocardial Infarction Date:: 04/2023 History of Any Multi-Drug Resistant Organisms: None Reported Past Surgical History: Coronary Bypass/CABG, Heart Catheterization, Hysterectomy, Orthopedic Surgery Additional Past Surgical History / Comment(s): Partial thyroidectomy, 2009 CABG 4 vessel, R side jaw/neck surgery, bilateral carpal tunnel release Past Anesthesia/Blood Transfusion Reactions: No Reported Reaction Smoking Status: Former smoker - Past Family History Father History Unknown: Yes Family Medical History: Cancer Additional Family Medical History / Comment(s): at 59 from cancer. Mother History Unknown: Yes Family Medical History: Myocardial Infarction ([place]) Additional Family Medical History / Comment(s): of [place] at 55yrs. Medications and Allergies Home Medications Medication Instructions Recorded Confirmed Type Aspirin EC [Ecotrin Low Dose] 81 mg PO QAM 04/14/23 05/24/23 History Cholecalciferol [Vitamin D3 (25 25 mcg PO QAM 04/14/23 05/24/23 History Mcg = 1000 Iu)] Cyanocobalamin (Vitamin B-12) 1,000 mcg PO QAM 04/14/23 05/24/23 History [Vitamin B-12] Ferrous Sulfate [Iron (65 MG 325 mg PO QAM 04/14/23 05/24/23 History Elemental)] Levothyroxine Sodium [Synthroid] 200 mcg PO QAM 04/14/23 05/24/23 History Omeprazole 40 mg PO QAM 04/14/23 05/24/23 History Simvastatin [Zocor] 20 mg PO HS 04/14/23 05/24/23 History carvediloL [Coreg] 6.25 mg PO BID 04/14/23 05/24/23 History lisinopriL 40 mg PO QAM 04/14/23 05/24/23 History Furosemide [Lasix] 20 mg PO QAM 05/23/23 05/24/23 History Ibuprofen 600 mg PO Q8H PRN 05/23/23 05/24/23 History Isosorbide Mononitrate ER [Imdur] 30 mg PO QAM 05/23/23 05/24/23 History Allergies Allergy/AdvReac Type Severity Reaction Status Date / Time atorvastatin [From Lipitor] Allergy Swelling Verified 05/24/23 13:19 bisacodyl Allergy Rash/Hives Verified 05/24/23 13:19 [From Dulcolax (bisacodyl)] carisoprodol [From Soma] Allergy Unknown Verified 05/24/23 13:19 morphine Allergy Vomiting Verified 05/24/23 13:19 orphenadrine Allergy Unknown Verified 05/24/23 13:19 pseudoephedrine Allergy Rash/Hives Verified 05/24/23 13:19 [From Sudafed] tramadol [From Ultram] Allergy Unknown Verified 05/24/23 13:19 Physical Exam Vitals: Vital Signs Temp Pulse Resp BP Pulse Ox 05/24/23 17:34 19 05/24/23 17:33 97.7 F 86 19 99/65 92 L 05/24/23 17:30 97.7 F 86 19 99/65 92 L 05/24/23 16:53 75 24 108/52 92 L 05/24/23 16:42 80 21 90/41 93 L 05/24/23 16:27 78 21 100/46 93 L 05/24/23 16:12 80 26 H 112/48 94 L 05/24/23 15:57 94 24 94/46 94 L 05/24/23 15:42 123 H 26 H 85/62 94 L 05/24/23 15:27 121 H 26 H 114/58 94 L 05/24/23 15:12 97.4 F L 124 H 18 99/73 95 05/24/23 13:24 97.1 F L 77 20 129/60 90 L Intake and Output 05/24/23 05/24/23 05/24/23 06:59 14:59 22:59 Intake Total 500 300 Balance 500 300 Intake: IV 500 300 Other: Voiding Method Toilet Bedside Commode # Voids 0 Weight 79.3 kg 79.3 kg PHYSICAL EXAMINATION: Patient is lying in the bed comfortably, no acute distress, awake alert and oriented.. HEENT: Normocephalic. Neck is supple. Pupils reactive. Nostrils clear. Oral cavity is moist. Neck reveals no JVD, carotid bruits, or thyromegaly. CHEST EXAMINATION: Trachea is central. Symmetrical expansion. Bibasilar diminished sounds and crackles noted. Nonlabored breathing.. CARDIAC: Normal S1, S2 with no gallops. No murmurs ABDOMEN: Soft. Bowel sounds normal. No organomegaly. No abdominal bruits. Extremities: Bilateral lower extremity trace edema. No clubbing or cyanosis Neurologically awake, alert, oriented x3 with well-coordinated movements. No focal deficits noted Skin: No rash or skin lesions. Psychiatric: Coperative. Nonsuicidal Musculoskeletal: No joint swelling or deformity. Normal range of motion. Results CBC & Chem 7: 05/24/23 18:33 05/24/23 18:33 Labs: Abnormal Lab Results - Last 24 Hours (Table) 05/24/23 05/24/23 Range/Units 18:33 18:33 Plt Count 141 L (150-450) k/uL Chloride 111 H (98-107) mmol/L Carbon Dioxide 14 L (22-30) mmol/L BUN 69 H (7-17) mg/dL Glucose 100 H (74-99) mg/dL Total Protein 6.1 L (6.3-8.2) g/dL Albumin 3.2 L (3.5-5.0) g/dL Thrombosis Risk Factor Assmnt - DVT/VTE Prophylaxis DVT/VTE Prophylaxis: Pharmacologic Prophylaxis ordered - Choose All That Apply Any of the Below Risk Factors Present?: Yes Each Factor Represents 1 point: Minor surgery planned, Sepsis (< 1month) Each Risk Factor Represents 3 Points: Age 75 years or older Other congenital or acquired thrombophilia - If yes, enter type in comment: Yes Thrombosis Risk Factor Assessment Total Risk Factor Score: 5 Thrombosis Risk Factor Assessment Level: High Risk Assessment and Plan Assessment: New onset atrial fibrillation with rapid ventricular rate with heart rate in 130s. While she was in the recovery room. Patient was converted back to sinus rhythm before starting on Cardizem drip. Diffuse subpleural nodularity along the right sided lung fissures correlate for interval neoplastic disease progression. Mediastinal lymphadenopathy. Patient is s/p bronchoscopy and endobronchial ultrasound with needle biopsy on 05/24/2023. Acute hypoxic respiratory failure status post bronchoscopy. Currently on 4 L oxygen via nasal cannula. Recent admission with acute hypoxic respiratory failure status post right thoracentesis. Psych fluid cytology negative for malignancy. Chronic CHF with systolic dysfunction ejection fraction 25 to 30%, mid to distal inferolateral and lateral wall hypokinesis and inferior apical wall hypokinesis. Ischemic cardiomyopathy Coronary artery disease with prior history of quadruple CABG in 2009 Hypertension Diabetes type 2 [id number] Hyperlipidemia Rheumatoid arthritis not on any treatment currently. Hypothyroidism History of non-Hodgkin's lymphoma status postchemotherapy. Currently in remission. DVT prophylaxis with heparin subcu. Plan: Patient will be continued on telemonitoring. Cardizem drip was ordered but patient converted back to sinus rhythm before initiating the infusion. Patient will be continued on aspirin, statin and Coreg and is also on Lasix 20 mg every morning and Imdur. Continue with other home medication including levothyroxine. Follow-up biopsy of the mediastinal lymph node. Chest x-ray, CBC and CMP was ordered. Cardiology and pulmonary will be consulted. Continue to follow closely. Prognosis is guarded. Time with Patient: Greater than 30
[2023-05-24] MEDS ORDERED: DEXTROSE 50% SYRINGE 50 ML IVP PRN ×2 (22:09)
[2023-05-25] MEDS: HEPARIN SODIUM,PORCINE 5,000 UNIT/ML 1 ML VIAL SQ SCH (00:18)
[2023-05-25] MEDS: AMIODARONE 360 MG in DEXTROSE 5% IN WATER 200 ML IV ONE (04:41)
[2023-05-25 05:51] LABS: Glucose,Whole Blood 83 mg/dL (70-110)
[2023-05-25] MEDS: DILTIAZEM DRIP BOLUS FROM BAG 1 MG SOLN IV STA (06:40)
[2023-05-25] MEDS: LEVOTHYROXINE 100 MCG TAB PO SCH (06:45)
[2023-05-25] MEDS: PANTOPRAZOLE 40 MG TABLET PO SCH (06:45)
[2023-05-25] MEDS: INSULIN ASPART (NovoLOG) 100 UNIT/ML VIAL SQ SCH (06:54)
[2023-05-25] MEDS: DILTIAZEM 125 MG in SODIUM CHLORIDE 0.9% 100 ML IV SCH (06:55)
[2023-05-25 08:46] LABS: Basophils % (A) 0 %; Eosinophils # (A) 0.5 k/uL (0-0.7); Eosinophils % (A) 5 %; HCT 41.8 % (34.0-46.0); HGB 12.7 gm/dL (11.4-16.0); Hypochromasia Moderate; Lymphocytes # (A) 2.3 k/uL (1.0-4.8); Lymphocytes % (A) 21 %; MCH 30.2 pg (25.0-35.0); MCHC 30.4 g/dL (31.0-37.0); MCV 99.1 fL (80.0-100.0); Macrocytosis Slight; Monocytes # (A) 0.8 k/uL (0-1.0); Monocytes % (A) 7 %; Neutrophils # (A) 7.1 k/uL (1.3-7.7); Neutrophils % (A) 65 %; Platelet Count 151 k/uL (150-450); RBC 4.22 m/uL (3.80-5.40); RDW 14.8 % (11.5-15.5)
[2023-05-25 09:02] LABS: African American GFR (CKD) 82 (>60 ml/min/1.73 sqM); Anion Gap 10 mmol/L; Blood Urea Nitrogen 59 mg/dL (7-17); Calcium 10.1 mg/dL (8.4-10.2); Carbon Dioxide 19 mmol/L (22-30); Chloride 107 mmol/L (98-107); Glucose 165 mg/dL (74-99); Non-African American GFR(CKD) 71 (>60 ml/min/1.73 sqM); Potassium 5.4 mmol/L (3.5-5.1); Sodium 136 mmol/L (137-145)
[2023-05-25] MEDS: FUROSEMIDE 20 MG TAB PO SCH (09:42)
[2023-05-25] MEDS: APIXABAN 5 MG TAB PO SCH (09:42)
[2023-05-25] MEDS: CHOLECALCIFEROL 25 MCG (1000 IU) TABLET PO SCH (09:42)
[2023-05-25] MEDS: ISOSORBIDE MONONITRATE ER 30 MG TAB.ER.24H PO SCH (09:43)
[2023-05-25] MEDS: CYANOCOBALAMIN 500 MCG TAB PO SCH (09:43)
[2023-05-25] MEDS: FERROUS SULFATE 325 MG TAB PO SCH (09:43)
--- NOTE | 2023-05-25 10:58 | P.CRDCN ---
History of Present Illness History of present illness: HISTORY OF PRESENT ILLNESS: This is a 82-year-old female with a past medical history significant for lung mass status post bronchoscopy, coronary artery disease with previous CABG, congestive heart failure, diabetes, rheumatoid arthritis, congestive heart failure, and cardiomyopathy. Patient follows in the office with Dr. Wheeler. We have been asked to see the patient in consultation for new onset atrial fibrillation. Patient examined at the bedside. Patient underwent bronchoscopy with yesterday with Dr. Parsons. The patient went into A-fib with RVR. The patient subsequently converted to sinus mechanism. The patient returned back into A-fib with RVR. She was started on IV amiodarone. This morning she has converted again to sinus mechanism and is maintaining sinus mechanism at the time of examination. Patient currently denies any chest pain or pressure. She reports chronic shortness of breath. She denies having any palpitations yesterday or this morning. She does report feeling tired and weak. She states she has not had much of an appetite since April. The patient does report she has been taking Motrin quite frequently on an outpatient basis. DIAGNOSTICS: - EKG reveals atrial fibrillation with RVR. Right bundle branch block. - Chest xray cardiomegaly and postoperative changes. Slight interval worsening of the right lung interstitial and airspace opacities, may represent edema, atelectasis and/or postbiopsy changes with superimposed infectious process not excluded. The known 4 cm right upper lobe lung mass is largely obscured, loculated right pleural effusion has slightly increased, no evidence of pneumothorax. - Laboratory data: WBC 11.0. Hemoglobin 12.7. Platelet count 151. Sodium 136. Potassium 5.4. BUN 59. Creatinine 0.78. Troponin negative x 1. proBNP 1080. - Current home cardiac medications include Imdur 30 mg daily, carvedilol 6.25 mg twice a day, lisinopril 40 mg daily, Lasix 20 mg daily, simvastatin 20 mg at night, and aspirin 81 mg daily. - Most recent echocardiogram obtained in April 2023 revealed ejection fraction 25 to 30%, mid to distal inferior lateral and lateral wall hypokinesia, apical and inferior apical wall hypokinesia, mild to moderate PI, mild MR REVIEW OF SYSTEMS: At the time of my exam: CONSTITUTIONAL: Denies fever or chills. HEENT: Denies blurred vision, vision changes, or eye pain. Denies hemoptysis CARDIOVASCULAR: Denies chest pain. Denies orthopnea. Denies PND. Denies palpitations RESPIRATORY: Denies shortness of breath. GASTROINTESTINAL: Denies abdominal pain. Denies nausea or vomiting. HEMATOLOGIC: Denies bleeding disorders. GENITOURINARY: Denies any blood in urine. SKIN: Denies pruitis. Denies rash. PHYSICAL EXAM: VITAL SIGNS: Reviewed. GENERAL: Well-developed in no acute distress. HEENT: Head is normocephalic. Pupils are equal, round. Sclerae anicteric. Mucous membranes of the mouth are moist. Neck supple. No JVD or thyromegaly LUNGS: Respirations even and unlabored. Lungs essentially clear to auscultation bilaterally. HEART: Regular rate and rhythm. S1 and S2 heard. ABDOMEN: Soft. Nondistended. Nontender. EXTREMITIES: Normal range of motion. No clubbing or cyanosis. Peripheral pulses intact. No lower extremity edema NEUROLOGIC: Awake and alert. Oriented x 3. ASSESSMENT: New onset atrial fibrillation with RVR, currently maintaining sinus mechanism Right bundle branch block Lung mass, status post bronchoscopy Acute hypoxic respiratory failure requiring supplemental oxygen Coronary artery disease with previous CABG, performed in [place], details unknown Ischemic cardiomyopathy, ejection fraction 25 to 30% Chronic heart failure with reduced EF, currently euvolemic Hypertension Hyperlipidemia Diabetes Rheumatoid arthritis History of non-Hodgkin's lymphoma PLAN: No need to repeat echocardiogram Continue IV amiodarone until 2200 Begin oral amiodarone 400 mg twice a day starting this evening Begin Eliquis 5 mg twice a day Discontinue aspirin Patient instructed to stop taking ibuprofen on an outpatient basis and to utilize Tylenol for pain Check TSH Continue telemetry monitoring Patient to follow-up postdischarge with Dr. Wheeler Nurse practitioner note has been reviewed by physician. Signing provider agrees with the documented findings, assessment, and plan of care documented by PERINATAL EDUCATOR as a scribe. Past Medical History Past Medical History: Coronary Artery Disease (CAD), Cancer, Chest Pain / A ngina, Heart Failure, Diabetes Mellitus, Hyperlipidemia, Hypertension, Myocardial Infarction ([place]), Osteoarthritis (OA), Respiratory Disorder, Rheumatoid Arthritis (RA), Thyroid Disorder Additional Past Medical History / Comment(s): 04/2023 admitted to [facility] with acute hypoxic respiratory failure/R parapneumonic effusio/had thoracentesis/chf/NSTEMI. Other hx: Abnormal cat scan of chest, SOB at all times and weak, appetite very poor so taken off diabetic medications, hypo thyroidism, neuropathy, 2013 lymphoma both sides of jaw/surgery one side/chemotherapy Last Myocardial Infarction Date:: 04/2023 History of Any Multi-Drug Resistant Organisms: None Reported Past Surgical History: Coronary Bypass/CABG, Heart Catheterization, Hysterectomy, Orthopedic Surgery Additional Past Surgical History / Comment(s): Partial thyroidectomy, 2009 CABG 4 vessel, R side jaw/neck surgery, bilateral carpal tunnel release Past Anesthesia/Blood Transfusion Reactions: No Reported Reaction Smoking Status: Former smoker - Past Family History Father History Unknown: Yes Family Medical History: Cancer Additional Family Medical History / Comment(s): at 59 from cancer. Mother History Unknown: Yes Family Medical History: Myocardial Infarction ([place]) Additional Family Medical History / Comment(s): of [place] at 55yrs. Medications and Allergies Home Medications Medication Instructions Recorded Confirmed Type Aspirin EC [Ecotrin Low Dose] 81 mg PO QAM 04/14/23 05/24/23 History Cholecalciferol [Vitamin D3 (25 25 mcg PO QAM 04/14/23 05/24/23 History Mcg = 1000 Iu)] Cyanocobalamin (Vitamin B-12) 1,000 mcg PO QAM 04/14/23 05/24/23 History [Vitamin B-12] Ferrous Sulfate [Iron (65 MG 325 mg PO QAM 04/14/23 05/24/23 History Elemental)] Levothyroxine Sodium [Synthroid] 200 mcg PO QAM 04/14/23 05/24/23 History Omeprazole 40 mg PO QAM 04/14/23 05/24/23 History Simvastatin [Zocor] 20 mg PO HS 04/14/23 05/24/23 History carvediloL [Coreg] 6.25 mg PO BID 04/14/23 05/24/23 History lisinopriL 40 mg PO QAM 04/14/23 05/24/23 History Furosemide [Lasix] 20 mg PO QAM 05/23/23 05/24/23 History Ibuprofen 600 mg PO Q8H PRN 05/23/23 05/24/23 History Isosorbide Mononitrate ER [Imdur] 30 mg PO QAM 05/23/23 05/24/23 History Allergies Allergy/AdvReac Type Severity Reaction Status Date / Time atorvastatin [From Lipitor] Allergy Swelling Verified 05/24/23 13:19 bisacodyl Allergy Rash/Hives Verified 05/24/23 13:19 [From Dulcolax (bisacodyl)] carisoprodol [From Soma] Allergy Unknown Verified 05/24/23 13:19 morphine Allergy Vomiting Verified 05/24/23 13:19 orphenadrine Allergy Unknown Verified 05/24/23 13:19 pseudoephedrine Allergy Rash/Hives Verified 05/24/23 13:19 [From Sudafed] tramadol [From Ultram] Allergy Unknown Verified 05/24/23 13:19 Physical Exam Vitals: Vital Signs Temp Pulse Resp BP Pulse Ox 05/25/23 07:21 96/63 05/25/23 04:00 18 91/44 95 05/25/23 00:00 75 18 94/57 90 L 05/24/23 20:00 97.9 F 85 18 107/61 91 L 05/24/23 17:34 19 05/24/23 17:33 97.7 F 86 19 99/65 92 L 05/24/23 17:30 97.7 F 86 19 99/65 92 L 05/24/23 16:53 75 24 108/52 92 L 05/24/23 16:42 80 21 90/41 93 L 05/24/23 16:27 78 21 100/46 93 L 05/24/23 16:12 80 26 H 112/48 94 L 05/24/23 15:57 94 24 94/46 94 L 05/24/23 15:42 123 H 26 H 85/62 94 L 05/24/23 15:27 121 H 26 H 114/58 94 L 05/24/23 15:12 97.4 F L 124 H 18 99/73 95 05/24/23 13:24 97.1 F L 77 20 129/60 90 L Intake and Output 05/24/23 05/25/23 05/25/23 22:59 06:59 14:59 Intake Total 300 Balance 300 Intake: IV 300 Other: Voiding Method Toilet Toilet Bedside Commode Bedside Commode # Voids 0 Weight 79.3 kg Results 05/25/23 08:02 05/25/23 08:02 Cardiac Enzymes 05/24/23 05/24/23 Range/Units 18:33 18:33 AST 26 (14-36) U/L Troponin I <0.012 (0.000-0.034) ng/mL CBC 05/24/23 05/25/23 Range/Units 18:33 08:02 WBC 9.8 11.0 H (3.8-10.6) k/uL RBC 4.27 4.22 (3.80-5.40) m/uL Hgb 13.1 12.7 (11.4-16.0) gm/dL Hct 42.0 41.8 (34.0-46.0) % Plt Count 141 L 151 (150-450) k/uL Comprehensive Metabolic Panel 05/24/23 Range/Units 18:33 Sodium 137 (137-145) mmol/L Potassium (3.5-5.1) mmol/L Chloride 111 H (98-107) mmol/L Carbon Dioxide 14 L (22-30) mmol/L BUN 69 H (7-17) mg/dL Creatinine 0.89 (0.52-1.04) mg/dL Glucose 100 H (74-99) mg/dL Calcium 10.2 (8.4-10.2) mg/dL AST 26 (14-36) U/L ALT 13 (4-34) U/L Alkaline Phosphatase 58 (38-126) U/L Total Protein 6.1 L (6.3-8.2) g/dL Albumin 3.2 L (3.5-5.0) g/dL Current Medications Generic Name Dose Route Start Last Admin Trade Name Freq PRN Reason Stop Dose Admin Aspirin 81 mg 05/24/23 18:00 05/24/23 18:34 Aspirin 81 Mg PO 81 mg QAM [facility] Administration Carvedilol 6.25 mg 05/24/23 21:00 05/25/23 06:45 Carvedilol 6.25 Mg Tab PO 6.25 mg BID-W/MEALS [facility] Administration Cholecalciferol 25 mcg 05/25/23 09:00 Cholecalciferol 25 Mcg (1000 Iu) [facility] Cyanocobalamin 1,000 mcg 05/25/23 09:00 Cyanocobalamin 500 Mcg [facility] Dextrose/Water 25 ml 05/24/23 22:09 Dextrose 50% Syringe 50 Ml IVP PER PROTOCOL PRN Hypoglycemia Protocol Dextrose/Water 50 ml 05/24/23 22:09 Dextrose 50% Syringe 50 Ml IVP PER PROTOCOL PRN Hypoglycemia Protocol Ferrous Sulfate 325 mg 05/25/23 09:00 Ferrous Sulfate 325 Mg Tab PO QAM [facility] Furosemide 20 mg 05/25/23 09:00 Furosemide 20 Mg Tab PO QAM [facility] Heparin Sodium (Porcine) 5,000 unit 05/25/23 00:00 05/25/23 00:18 Heparin Sodium,Porcine 5,000 Unit/Ml 1 Ml Vial SQ 5,000 unit Q8HR [facility] Administration Lactated Ringer's 1,000 mls @ 20 mls/hr 05/24/23 06:00 05/25/23 06:40 Lactated Ringers IV 06/23/23 06:01 Not Given .Q24H [facility] Lactated Ringer's 1,000 mls @ 20 mls/hr 05/24/23 07:29 05/25/23 06:47 Lactated Ringers IV 06/23/23 07:30 Not Given .Q24H [facility] Amiodarone HCl 360 mg/ 200 mls @ 33.333 mls/hr 05/25/23 04:30 05/25/23 04:41 Dextrose/Water IV 05/25/23 10:29 1 mg/min .Q6H ONE 33.333 mls/hr Administration Protocol 1 MG/MIN Amiodarone HCl 450 mg/ 250 mls @ 16.667 mls/hr 05/25/23 10:30 Dextrose/Water IV 05/26/23 04:29 .Q15H ASHLIE Protocol 0.5 MG/MIN Insulin Aspart 0 unit 05/25/23 07:30 05/25/23 06:54 Insulin Aspart (Novolog) 100 Unit/Ml Vial SQ Not Given ACHS A[facility]LIE Protocol Isosorbide Mononitrate 30 mg 05/25/23 09:00 Isosorbide Mononitrate Er 30 Mg Tab.Er.24h PO QAM A[facility] Levothyroxine Sodium 200 mcg 05/25/23 06:30 05/25/23 06:45 Levothyroxine 100 Mcg Tab PO 200 mcg DAILY@0630 A[facility] Administration Non-Formulary Medication 20 mg 05/24/23 21:00 05/24/23 21:28 Simvastatin PO Not Given HS A[facility]LIE Pantoprazole Sodium 40 mg 05/25/23 07:30 05/25/23 06:45 Pantoprazole 40 Mg Tablet PO 40 mg [id number] ASHLIE Administration Intake and Output 05/24/23 05/25/23 05/25/23 22:59 06:59 14:59 Intake Total 300 Balance 300 Intake: IV 300 Other: Voiding Method Toilet Toilet Bedside Commode Bedside Commode # Voids 0 Weight 79.3 kg 05/25/23 08:02 05/24/23 18:33
[2023-05-25] MEDS: AMIODARONE 450 MG in DEXTROSE 5% IN WATER 250 ML IV SCH (11:46)
[2023-05-25 11:47] LABS: Glucose,Whole Blood 112 mg/dL (70-110)
[2023-05-25 13:05] LABS: T4, Free (Free Thyroxine) 3.66 ng/dL (0.78-2.19)
--- NOTE | 2023-05-25 13:53 | XR ---
EXAMINATION TYPE: XR abdomen 1V DATE OF EXAM: 05/25/2023 12:58 PM CLINICAL INDICATION:Female, 82 years old with history of No bowel movement; COMPARISON: 04/18/2018. TECHNIQUE: One radiographic view of the abdomen was obtained. FINDINGS: The bowel gas pattern is nonspecific without dilated loops of small or large bowel. There i s no evidence for organomegaly or pneumoperitoneum. The osseous structures are intact. No abnormal calcifications are present. Fecal material and gas are demonstrated throughout the colon and rectum. Multilevel degeneration changes throughout the spine. IMPRESSION: Nonspecific bowel gas pattern without radiographic evidence for acute process.
--- NOTE | 2023-05-25 14:03 | P.PN ---
Subjective Progress Note Date: 05/25/23 Patient is a 82-year-old female with a past medical history of coronary artery disease status post quadruple bypass in 2009 in [place], history of non- Hodgkin's lymphoma, hypertension, diabetes type 2, hyperlipidemia, history of MO, osteoarthritis, rheumatoid others, hypothyroidism. Patient was brought to the hospital for bronchoscopy with endoscopic ultrasound and DVT aspiration biopsy of the mediastinal lymph node.. Postprocedure while in the recovery room patient went into atrial fibrillation with rapid ventricular rate and heart rate went up to 130s. EKG showed atrial fibrillation with rapid ventricular rate. Cardizem drip was ordered but before starting the infusion patient converted back to sinus rhythm and heart rate came down to 70s. She was admitted to the hospital for further evaluation Patient was recently admitted to the hospital from 04/15/2023 to 04/21/2023. She is admitted due to worsening shortness of breath, requiring BiPAP. Patient was also found to have right-sided pleural effusion status post paracentesis showed reactive mesothelial cells, macrophages and mixed inflammatory cells. No c cytologically malignant cells identified. CT chest on 04/15/2023 showed large right-sided pleural effusion. Repeat CT on 05/07/2023 showed decreasing but residual moderate right pleural effusion, however there is worsening irregular dural thickening/throughout the right hemithorax now measuring up to 1.3 cm thick versus 1.0 cm previously. Focal subpleural soft tissue anteromedial right lower lung measures up to 3.3 cm and appears new. New diffuse subpleural nodularity along the right-sided lung fissures. Correlate for slight interval neoplastic disease present progression, possible lymphoma. Currently patient denies any complaints of chest pain. No worsening shortness of breath. Denies any palpitations. No nausea vomiting abdominal pain or diarrhea. Patient is on Ventimask which is being titrated down to nasal cannula oxygen. No complaints of fever or chills. No diarrhea. No cough or sputum production. Denies any worsening leg swelling recently. 05/25/2023 Patient is sitting on the side of the bed. Awake alert and oriented x 3. Complains of bloating and abdominal and not able to tolerate oral diet. No bowel movement today. Otherwise patient is having atrial fibrillation with RVR last night on and off. Was started on amiodarone drip and added anticoagulation with Eliquis as per cardiology recommendations. Patient was also found to have elevated free T4 level and low TSH level. Levothyroxine dose reduced to 125 mcg daily from 200 mcg which she takes at home. Otherwise patient has been afebrile. Requiring oxygen via nasal cannula. No c omplaints of chest pain. Does have exertional shortness of breath. Laboratory data showed Pulmonary and cardiology is on board. WBC 11.0 hemoglobin 12.7 platelets 151 Sodium 136 potassium 5.4 chloride 107 bicarb is 19 BUN 59 and creatinine 0.78 and blood sugar 165 TSH 0.276 and free T4 3.66. Current medications reviewed. Objective - Vital Signs Vital signs: Vital Signs Temp 97.8 F 05/25/23 11:44 Pulse 66 05/25/23 11:44 Resp 18 05/25/23 11:44 BP 105/54 05/25/23 11:44 Pulse Ox 93 L 05/25/23 11:44 FiO2 Intake & Output 05/24/23 05/25/23 05/25/23 18:59 06:59 18:59 Intake Total 800 120 Balance 800 120 Weight 79.3 kg Intake: IV 800 Oral 120 Other: Voiding Method Toilet Toilet Toilet Bedside Commode Bedside Commode Bedside Commode # Voids 0 0 # Bowel Movements 0 - Exam PHYSICAL EXAMINATION: Patient is lying in the bed comfortably, no acute distress, awake alert and oriented.. HEENT: Normocephalic. Neck is supple. Pupils reactive. Nostrils clear. Oral cavity is moist. Neck reveals no JVD, carotid bruits, or thyromegaly. CHEST EXAMINATION: Trachea is central. Symmetrical expansion. Right ibasilar diminished sounds and crackles noted. Nonlabored breathing.. CARDIAC: Normal S1, S2 with no gallops. No murmurs ABDOMEN: Soft. Bowel sounds normal. No organomegaly. No abdominal bruits. Extremities: Bilateral lower extremity trace edema. No clubbing or cyanosis Neurologically awake, alert, oriented x3 with well-coordinated movements. No focal deficits noted Skin: No rash or skin lesions. Psychiatric: Coperative. Nonsuicidal Musculoskeletal: No joint swelling or deformity. Normal range of motion. - Labs CBC & Chem 7: 05/25/23 08:02 05/25/23 08:02 Labs: Abnormal Lab Results - Last 24 Hours (Table) 05/24/23 05/24/2305/24/24 Range/Units 18:33 18:33 08:02 WBC 11.0 H (3.8-10.6) k/uL MCHC 30.4 L (31.0-37.0) g/dL Plt Count 141 L (150-450) k/uL Sodium (137-145) mmol/L Potassium (3.5-5.1) mmol/L Chloride 111 H (98-107) mmol/L Carbon Dioxide 14 L (22-30) mmol/L BUN 69 H (7-17) mg/dL Glucose 100 H (74-99) mg/dL POC Glucose (mg/dL) (70-110) mg/dL Total Protein 6.1 L (6.3-8.2) g/dL Albumin 3.2 L (3.5-5.0) g/dL TSH (0.465-4.680) mIU/L Free T4 (0.78-2.19) ng/dL 05/25/23 05/25/23 05/25/23 Range/Units 08:02 08:02 11:44 WBC (3.8-10.6) k/uL MCHC (31.0-37.0) g/dL Plt Count (150-450) k/uL Sodium 136 L (137-145) mmol/L Potassium 5.4 H (3.5-5.1) mmol/L Chloride (98-107) mmol/L Carbon Dioxide 19 L (22-30) mmol/L BUN 59 H (7-17) mg/dL Glucose 165 H (74-99) mg/dL POC Glucose (mg/dL) 112 H (70-110) mg/dL Total Protein (6.3-8.2) g/dL Albumin (3.5-5.0) g/dL TSH 0.276 L (0.465-4.680) mIU/L Free T4 3.66 H (0.78-2.19) ng/dL Assessment and Plan Assessment: New onset atrial fibrillation with rapid ventricular rate with heart rate in 130s. While she was in the recovery room. Patient was converted back to sinus rhythm before starting on Cardizem drip. Patient was in and out of A-fib overnight and was started on amiodarone drip. Diffuse subpleural nodularity along the right sided lung fissures correlate for interval neoplastic disease progression. Mediastinal lymphadenopathy. Patient is s/p bronchoscopy and endobronchial ultrasound with needle biopsy on 05/24/2023. Acute hypoxic respiratory failure status post bronchoscopy. Currently on 4 L oxygen via nasal cannula. Recent admission with acute hypoxic respiratory failure status post right thoracentesis. Psych fluid cytology negative for malignancy. Chronic CHF with systolic dysfunction ejection fraction 25 to 30%, mid to distal inferolateral and lateral wall hypokinesis and inferior apical wall hypokinesis. Ischemic cardiomyopathy Coronary artery disease with prior history of quadruple CABG in 2009 Hypertension Diabetes type 2 [id number] Hyperlipidemia Rheumatoid arthritis not on any treatment currently. Hypothyroidism. Patient has elevated free T4 level. Levothyroxine dose reduced to 125 mcg daily. History of non-Hodgkin's lymphoma status postchemotherapy. Currently in re [place]. DVT prophylaxis with heparin subcu. Plan: Patient will be continued on telemonitoring. Patient is on amiodarone drip currently Patient will be continued on aspirin, statin and Coreg and is also on Lasix 20 mg every morning and Imdur. Continue with other home medication including levothyroxine. Follow-up biopsy of the mediastinal lymph node. Cardiology and pulmonary will be consulted. Continue to follow closely. Prognosis is guarded. Time with Patient: Greater than 30
[2023-05-25] MEDS: INSULIN REGULAR 100 UNIT/ML VIAL (IV) IV ONE (14:29)
[2023-05-25] MEDS: DEXTROSE 50% SYRINGE 50 ML IVP STA (14:30)
--- NOTE | 2023-05-25 16:55 | P.PN ---
Subjective Progress Note Date: 05/25/23 This is a 82-year-old female patient was suspected to have malignancy. The patient has been having progressive worsening in her health status in general. She has not been eating. She has been extremely weak and debilitated. She was in the hospital approximately a month ago and at that time she came in with acute hypoxic respiratory failure and the patient was initially supported with BiPAP and subsequently was found to have a right-sided pleural effusion. I performed a bedside thoracentesis on this patient and a total of 1.6 L of fluid was aspirated and fluid cytology was negative for malignancy. Echocardiogram showed impaired LV function with an EF of around 25 to 30% and there was some mi d to distal anterolateral wall hypokinesis and apical hypokinesis. The patient also had mild to moderate aortic valve calcification without any stenosis. She is subsequent CAT scan of the chest showed a loculated moderate-sized right- sided pleural effusion and irregular pleural wall thickening and the rind throughout the right hemithorax up to 1.3 cm in size and there was also what seems to be right upper lobe mass with extension into the mediastinum in addition to lymphadenopathy within the right hilum measuring around 2.3 cm in size and right suprahilar measuring 1.9 cm in size and in the subcarinal area in addition. There was a mass in the right upper lobe that is pleural-based opacity measuring 4.0 cm in size. Of significance was extensive pleural surface irregularity and nodular structures and this was obviously a manifestation of a neoplastic process and the concern was adenocarcinoma versus mesothelioma versus lymphoma as the patient is known to have a previous history of lymphoma. This was explained to the patient and the family members at length. Family was adamant in establishing a diagnosis. Based on that, the patient was brought in today patient underwent an endobronchial ultrasound under general anesthesia. I did not biopsy the right upper lobe mass. I was going more conservative because of her medical problems and I ended up doing a transbronchial needle aspirate of station 10 R and station 7 lymph nodes. Note that following her procedure, the patient was extubated and she got transferred to recovery where she went into A- fib RVR. I ordered Cardizem drip and this was not started and by the time she was about to start the Cardizem she converted to normal sinus rhythm. I discussed the findings with the family. The family told me that the patient's condition was progressively getting worse and she was not eating and they were very much concerned about her health in general and they wanted to keep her in the hospital. As such, the patient will be hospitalized to telemetry unit. She is known to have a left atrial ejection fraction of 25%. She is also known to have history of rheumatoid arthritis and she is currently off Remicade. She has diabetes mellitus type 2, coronary artery disease, hyperlipidemia, hyperlipidemia, remote history of non-Hodgkin's lymphoma. On today's evaluation of 05/25/2023, the patient is stable on 4L of oxygen by nasal cannula. Her cardiac rhythm is back to sinus. She is started on anticoagulation and she is currently on Eliquis. She is also on Lasix 20 mg p.o. daily. She is on Coreg 6.25 mg twice a day. Denies having any new complaints. The white cell count 11 with a hemoglobin 12.7 and a platelet count of 151. Sodium is at 136, BUN is at 59 with a creatinine of 0.7 and a potassium level is at 5.4. Thyroid function test shows a TSH free of 3.66 with a free T4 of 0.276. The patient remains on levothyroxine at 125 mcg p.o. daily. The dose of the thyroid has been modified and the patient has been just from 200 mcg on 225. Objective - Vital Signs Vital signs: Vital Signs Temp 97.7 F 05/25/23 09:40 Pulse 67 05/25/23 09:40 Resp 18 05/25/23 09:40 BP 115/62 05/25/23 09:40 Pulse Ox 92 L 05/25/23 09:40 FiO2 Intake & Output 05/24/23 05/25/23 05/25/23 18:59 06:59 18:59 Intake Total 800 120 Balance 800 120 Weight 79.3 kg Intake: IV 800 Oral 120 Other: Voiding Method Toilet Toilet Toilet Bedside Commode Bedside Commode Bedside Commode # Voids 0 0 # Bowel Movements 0 - Exam General Appearance no diaphoresis, dyspnea, pallor, or respiratory distress and speech not interrupted by breaths, not cachectic, and the patient is currently on 4 L of O2 nasal cannula l. HEENT no pursed lip breathing, jugular venous distention, mucous membrane cyanosis, or perioral cyanosis and mallampati classification: class 1 and Mallampati Classification: Class 4. Chest no retractions, rhonchi, hyperinflation, barrel chest, sternocleidomastoid muscle contractions, supraclavicular retractions, intercostal retractions, prolonged expiratory wheezing, or decreased air movement and decreased air movement and (normal) adventitious sounds: rales / crackles: bilaterally: midlung white. Heart no right ventricular heave, distant heart sounds, or s3 gallop and (normal) jugular vein and vein: jugular venous distention: by 0cm. GI bowel sounds: hyperactive (borborygmi) and diminished or absent. Extremities no cyanos is or clubbing and edema. Neurologic no somnolence, confusion, or decreased mental status. Assisstive Devices: ambulates with no assitive devices and ambulates with walker. Gait and Mobility: gait WNL and full weight bearing.Skin: General Appearance normal and (normal) normal except as noted. - Labs CBC & Chem 7: 05/25/23 08:02 05/25/23 08:02 Labs: Abnormal Lab Results - Last 24 Hours (Table) 05/24/23 05/24/23 05/25/23 Range/Units 18:33 18:33 08:02 WBC 11.0 H (3.8-10.6) k/uL MCHC 30.4 L (31.0-37.0) g/dL Plt Count 141 L (150-450) k/uL Sodium (137-145) mmol/L Potassium (3.5-5.1) mmol/L Chloride 111 H (98-107) mmol/L Carbon Dioxide 14 L (22-30) mmol/L BUN 69 H (7-17) mg/dL Glucose 100 H (74-99) mg/dL Total Protein 6.1 L (6.3-8.2) g/dL Albumin 3.2 L (3.5-5.0) g/dL 05/25/23 Range/Units 08:02 WBC (3.8-10.6) k/uL MCHC (31.0-37.0) g/dL Plt Count (150-450) k/uL Sodium 136 L (137-145) mmol/L Potassium 5.4 H (3.5-5.1) mmol/L Chloride (98-107) mmol/L Carbon Dioxide 19 L (22-30) mmol/L BUN 59 H (7-17) mg/dL Glucose 165 H (74-99) mg/dL Total Protein (6.3-8.2) g/dL Albumin (3.5-5.0) g/dL Assessment and Plan Plan: New onset atrial fibrillation with RVR, converted to normal sinus rhythm and the patient Is currently hemodynamically stable. Patient is currently on Coreg 6.25 mg twice a day and anticoagulation with Eliquis. Thyroid levels were elevated and the free T4 was high and accordingly the Synthroid dose was dropped down to 125 mcg on a daily basis. Acute hypoxic respiratory failure post bronchoscopy and the patient is currently on oxygen by nasal cannula the flow to be titrated to maintain saturation above 90%. Chest x-ray findings are stable and is consistent with a right upper lobe mass, pleural thickening and loculated right-sided pleural effusion. Lung mass -lung with extensive mediastinal lymphadenopathy and pleural thickening and loculated pleural effusion. Findings are highly suspicious for malignancy. Right upper lobe masslike consolidation measuring 4.0 cm in addition to extensive mediastinal lymphadenopathy involving the paratracheal, right hilar and suprahilar area and the patient has significant pleural surface irregularities and multiloculated right-sided pleural effusions. The findings a re highly suspicious for malignancy. Possibilities include adenocarcinoma of the lung, mesothelioma, and lymphoma. Note that the pleural surface is quite thickened and is reaching approximately 1.3 cm with significant irregularities and previous thoracentesis yielded no final pathology diagnosis. Nevertheless, the findings are highly suspicious for malignancy. Patient and the family was made aware. She has a poor baseline performance and functional status. She may not be a candidate for any treatment if the diagnosis of malignancy established. Nevertheless, patient and family are highly interested in establishing a final diagnosis and for that reason I offered the patient a relatively less invasive procedure which would include an endobronchial ultrasound and biopsy of the mediastinal lymph nodes. Mediastinal lymphadenopathy -detail discussed above Chest wall pain -Irregular pleural surface border with multiple nodularities and secondary pain. This is likely malignant process. Rule out mesothelioma versus adenocarcinoma versus lymphoma. Offered nonsteroidal anti-inflammatory medi cations for pain control. Pleural effusion - This patient came into the hospital because of an acute hypoxic respiratory failure and she was on a BiPAP and she was transferred to us from [facility]. The patient had significant opacification of the right lung. I did a emergent thoracentesis on her and removed approximately 1.6 to 2 L of pleural fluid from the right lung. The fluid was exudative. The fluid cytology came back negative for malignancy. Initial impression was a parapneumonic effusion and the patient was treated with antibiotics. Follow-up chest x-ray still showing an opacity in the right upper lobe along with some right pleural irregularities and thickening and there is a pleural-based opacity. A follow-up CAT scan of the chest showed similar findings of multiloculated right-sided pleural effusion along with extensive pleural surface irregularities abnormalities highly suspicious for malignancy. She also has a right upper lobe mass measuring 4.0 cm. Coronary arteriosclerosis - She is post CABG and she had surgery on 2009 and she will FU with Dr Wheeler Chronic systolic heart failure -Systolic heart failure diagnosed by an echocardiogram that was done in the hospital and the patient has ejection fraction of 25% and she has some edema in lower extremities and she is seeing cardiology and she is currently on diuretics and she is taking Lasix at a dose of 40 mg once a day Non-Hodgkin's lymphoma (clinical) -She is in remission and she was diagnosed in 2013 and she has completed the chemotherapy . This involved the jaw and the head and neck C85.90: Non-Hodgkin lymphoma, unspecified, unspecified site Type 2 diabetes mellitus - Maintained on Metformin and glyburide Rheumatoid arthritis - On no treatment and she is off Ramicade Medical debility along with weight loss and diminished appetite and failure to thrive. Plan Titrate oxygen flow to maintain a saturation above 90%, currently on 4 L Chest x-ray findings are stable Cardiac rhythm sinus Synthroid dose has been modified 225 mg on a daily basis Bronchoscopy and endobronchial ultrasound and biopsy of the mediastinal lymph nodes have been completed. Pending results. I am hopeful that those will give us tissue diagnosis to establish a final diagnosis on this patient. Results are still pending for now Management of atrial fibrillation per cardiology The patient will be admitted to telemetry Resume home medications The long-term prognosis poor based on above-mentioned comorbidities. Family is aware. Will continue to follow. Will address her CODE STATUS in addition.
[2023-05-25 17:06] LABS: Glucose,Whole Blood 143 mg/dL (70-110)
[2023-05-25 20:45] LABS: Glucose,Whole Blood 107 mg/dL (70-110)
[2023-05-25] MEDS: AMIODARONE 200 MG TAB PO SCH (21:07)
[2023-05-26] MEDS: FLUTICASONE 50MCG/SPRAY NASAL 16GM EA NOSTRIL PRN (01:47)
[2023-05-26] MEDS: HYALURONIDASE, HUMAN RECOMB 150 UNIT/ML 1 ML VIAL SQ ONE (01:47)
[2023-05-26] MEDS: LEVOTHYROXINE 125 MCG TAB PO SCH (06:18)
[2023-05-26 06:19] LABS: Glucose,Whole Blood 129 mg/dL (70-110)
[2023-05-26 11:39] LABS: Glucose,Whole Blood 110 mg/dL (70-110)
--- NOTE | 2023-05-26 11:48 | P.PN ---
Subjective HISTORY OF PRESENT ILLNESS: This is a 82-year-old female with a past medical history significant for lung mass status post bronchoscopy, coronary artery disease with previous CABG, congestive heart failure, diabetes, rheumatoid arthritis, congestive heart failure, and cardiomyopathy. Patient follows in the office with Dr. Wheeler. We have been asked to see the patient in consultation for new onset atrial fibrillation. Patient examined at the bedside. Patient underwent bronchoscopy with yesterday with Dr. Parsons. The patient went into A-fib with RVR. The patient subsequently converted to sinus mechanism. The patient returned back into A-fib with RVR. She was started on IV amiodarone. This morning she has converted again to sinus mechanism and is maintaining sinus mechanism at the time of examination. Patient currently denies any chest pain or pressure. She reports chronic shortness of breath. She denies having any palpitations yesterday or this morning. She does report feeling tired and weak. She states she has not had much of an appetite since April. The patient does report she has been taking Motrin quite frequently on an outpatient basis. DIAGNOSTICS: - EKG reveals atrial fibrillation with RVR. Right bundle branch block. - Chest xray cardiomegaly and postoperative changes. Slight interval worsening of the right lung interstitial and airspace opacities, may represent edema, atelectasis and/or postbiopsy changes with superimposed infectious process not excluded. The known 4 cm right upper lobe lung mass is largely obscured, loculated right pleural effusion has slightly increased, no evidence of pneum othorax. - Laboratory data: WBC 11.0. Hemoglobin 12.7. Platelet count 151. Sodium 136. Potassium 5.4. BUN 59. Creatinine 0.78. Troponin negative x 1. proBNP 1080. - Current home cardiac medications include Imdur 30 mg daily, carvedilol 6.25 mg twice a day, lisinopril 40 mg daily, Lasix 20 mg daily, simvastatin 20 mg at night, and aspirin 81 mg daily. - Most recent echocardiogram obtained in April 2023 revealed ejection fraction 25 to 30%, mid to distal inferior lateral and lateral wall hypokinesia, apical and inferior apical wall hypokinesia, mild to moderate PI, mild MR 05/26/2023 Patient examined this morning at the bedside. Patient denies chest pain or pressure. She denies shortness of breath. Remote telemetry reveals sinus mechanism. Blood pressures remain soft with a recent reading of 90/45. TSH abnormal at 0.276. Free T43.66. Synthroid was decreased per primary medicine. PHYSICAL EXAM: VITAL SIGNS: Reviewed. GENERAL: Well-developed in no acute distress. HEENT: Head is normocephalic. Pupils are equal, round. Sclerae anicteric. Mucous membranes of the mouth are moist. Neck supple. No JVD or thyromegaly LUNGS: Respirations even and unlabored. Lungs essentially clear to auscultation bilaterally. HEART: Regular rate and rhythm. S1 and S2 heard. ABDOMEN: Soft. Nondistended. Nontender. EXTREMITIES: Normal range of motion. No clubbing or cyanosis. Peripheral pulses intact. No lower extremity edema NEUROLOGIC: Awake and alert. Oriented x 3. ASSESSMENT: New onset atrial fibrillation with RVR, currently maintaining sinus mechanism Right bundle branch block Lung mass, status post bronchoscopy Acute hypoxic respiratory failure requiring supplemental oxygen Coronary artery disease with previous CABG, performed in [place], details unknown Ischemic cardiomyopathy, ejection fraction 25 to 30% Chronic heart failure with reduced EF, currently euvolemic Hypertension Hyperlipidemia Diabetes Rheumatoid arthritis History of non-Hodgkin's lymphoma Abnormal TSH and free T4; Synthroid decreased per primary medicine PLAN: Continue oral amiodarone Continue anticoagulation with Eliquis Aspirin discontinued. Patient instructed to stop taking ibuprofen on an outpatient basis and to utilize Tylenol for pain Continue telemetry monitoring Stable from a cardiac standpoint We will sign off. Please reconsult if needed. Patient to follow-up postdischarge with Dr. Wheeler Nurse practitioner note has been reviewed by physician. Signing provider agrees with the documented findings, assessment, and plan of care documented by SENIOR TRAINER as a scribe. Objective - Vital Signs Vital signs: Vital Signs Temp 97.7 F 05/26/23 08:47 Pulse 64 05/26/23 08:47 Resp 20 05/26/23 08:47 BP 90/45 05/26/23 08:47 Pulse Ox 96 05/26/23 08:47 FiO2 Intake & Output 05/25/23 05/26/23 05/26/23 18:59 06:59 18:59 Intake Total 340 10 Balance 340 10 Weight 79.3 kg Intake: IV 10 Invasive Line 2 10 Oral 340 Other: Voiding Method Toilet Toilet Toilet Bedside Commode Bedside Commode Bedside Commode # Voids 1 2 # Bowel Movements 0 - Labs CBC & Chem 7: 05/25/23 08:02 05/25/23 08:02 Labs: Abnormal Lab Results - Last 24 Hours (Table) 05/25/23 05/25/23 05/25/23 Range/Units 08:02 11:44 17:01 POC Glucose (mg/dL) 112 H 143 H (70-110) mg/dL TSH 0.276 L (0.465-4.680) mIU/L Free T4 3.66 H (0.78-2.19) ng/dL 05/26/23 Range/Units 06:10 POC Glucose (mg/dL) 129 H (70-110) mg/dL TSH (0.465-4.680) mIU/L Free T4 (0.78-2.19) ng/dL
--- NOTE | 2023-05-26 15:31 | P.PN ---
Subjective Progress Note Date: 05/26/23 This is a 82-year-old female patient was suspected to have malignancy. The patient has been having progressive worsening in her health status in general. She has not been eating. She has been extremely weak and debilitated. She was in the hospital approximately a month ago and at that time she came in with acute hypoxic respiratory failure and the patient was initially supported with BiPAP and subsequently was found to have a right-sided pleural effusion. I performed a bedside thoracentesis on this patient and a total of 1.6 L of fluid was aspirated and fluid cytology was negative for malignancy. Echocardiogram showed impaired LV function with an EF of around 25 to 30% and there was some mi d to distal anterolateral wall hypokinesis and apical hypokinesis. The patient also had mild to moderate aortic valve calcification without any stenosis. She is subsequent CAT scan of the chest showed a loculated moderate-sized right- sided pleural effusion and irregular pleural wall thickening and the rind throughout the right hemithorax up to 1.3 cm in size and there was also what seems to be right upper lobe mass with extension into the mediastinum in addition to lymphadenopathy within the right hilum measuring around 2.3 cm in size and right suprahilar measuring 1.9 cm in size and in the subcarinal area in addition. There was a mass in the right upper lobe that is pleural-based opacity measuring 4.0 cm in size. Of significance was extensive pleural surface irregularity and nodular structures and this was obviously a manifestation of a neoplastic process and the concern was adenocarcinoma versus mesothelioma versus lymphoma as the patient is known to have a previous history of lymphoma. This was explained to the patient and the family members at length. Family was adamant in establishing a diagnosis. Based on that, the patient was brought in today patient underwent an endobronchial ultrasound under general anesthesia. I did not biopsy the right upper lobe mass. I was going more conservative because of her medical problems and I ended up doing a transbronchial needle aspirate of station 10 R and station 7 lymph nodes. Note that following her procedure, the patient was extubated and she got transferred to recovery where she went into A- fib RVR. I ordered Cardizem drip and this was not started and by the time she was about to start the Cardizem she converted to normal sinus rhythm. I discussed the findings with the family. The family told me that the patient's condition was progressively getting worse and she was not eating and they were very much concerned about her health in general and they wanted to keep her in the hospital. As such, the patient will be hospitalized to telemetry unit. She is known to have a left atrial ejection fraction of 25%. She is also known to have history of rheumatoid arthritis and she is currently off Remicade. She has diabetes mellitus type 2, coronary artery disease, hyperlipidemia, hyperlipidemia, remote history of non-Hodgkin's lymphoma. On today's evaluation of 05/25/2023, the patient is stable on 4L of oxygen by nasal cannula. Her cardiac rhythm is back to sinus. She is started on anticoagulation and she is currently on Eliquis. She is also on Lasix 20 mg p.o. daily. She is on Coreg 6.25 mg twice a day. Denies having any new complaints. The white cell count 11 with a hemoglobin 12.7 and a platelet count of 151. Sodium is at 136, BUN is at 59 with a creatinine of 0.7 and a potassium level is at 5.4. Thyroid function test shows a TSH free of 3.66 with a free T4 of 0.276. The patient remains on levothyroxine at 125 mcg p.o. daily. The dose of the thyroid has been modified and the patient has been just from 200 mcg on 225. On today's evaluation of 05/26/2023, the patient is resting comfortably in bed. No specific complaints. She is lethargic and weak. She remains on 40s of oxygen by nasal cannula with a pulse ox of 94%. Results of the biopsy are still pending for now. The patient has no significant complaints. The patient has chest wall pain on the right. This is an ongoing chronic problem dated 2 abnormalities that were described earlier. The patient is currently in normal sinus mechanism. The patient's thyroid dose has been i adjusted by the medical group. [employer] also on the case. Objective - Vital Signs Vital signs: Vital Signs Temp 97.7 F 05/26/23 08:47 Pulse 64 05/26/23 08:47 Resp 20 05/26/23 08:47 BP 90/45 05/26/23 08:47 Pulse Ox 96 05/26/23 08:47 FiO2 Intake & Output 05/25/23 05/26/23 05/26/23 18:59 06:59 18:59 Intake Total 340 10 Balance 340 10 Weight 79.3 kg Intake: IV 10 Invasive Line 2 10 Oral 340 Other: Voiding Method Toilet Toilet Toilet Bedside Commode Bedside Commode Bedside Commode # Voids 1 2 2 # Bowel Movements 0 - Exam General Appearance no diaphoresis, dyspnea, pallor, or respiratory distress and speech not interrupted by breaths, not cachectic, and the patient is currently on 4 L of O2 nasal cannula l. HEENT no pursed lip breathing, jugular venous distention, mucous membrane cyanosis, or perioral cyanosis and mallampati clas sification: class 1 and Mallampati Classification: Class 4. Chest no retractions, rhonchi, hyperinflation, barrel chest, sternocleidomastoid muscle contractions, supraclavicular retractions, intercostal retractions, prolonged expiratory wheezing, or decreased air movement and decreased air movement and (normal) adventitious sounds: rales / crackles: bilaterally: midlung white. Heart no right ventricular heave, distant heart sounds, or s3 gallop and (normal) jugular vein and vein: jugular venous distention: by 0cm. GI bowel sounds: hyperactive (borborygmi) and diminished or absent. Extremities no cyanosis or clubbing and edema. Neurologic no somnolence, confusion, or decreased mental status. Assisstive Devices: ambulates with no assitive devices and ambulates with walker. Gait and Mobility: gait WNL and full weight bearing.Skin: General Appearance normal and (normal) normal except as noted. - Labs CBC & Chem 7: 05/25/23 08:02 05/25/23 08:02 Labs: Abnormal Lab Results - Last 24 Hours (Table) 05/25/23 05/25/23 05/25/23 Range/Units 08:02 11:44 17:01 POC Glucose (mg/dL) 112 H 143 H (70-110) mg/dL TSH 0.276 L (0.465-4.680) mIU/L Free T4 3.66 H (0.78-2.19) ng/dL 05/26/23 Range/Units 06:10 POC Glucose (mg/dL) 129 H (70-110) mg/dL TSH (0.465-4.680) mIU/L Free T4 (0.78-2.19) ng/dL Assessment and Plan Plan: New onset atrial fibrillation with RVR, converted to normal sinus rhythm and the patient Is currently hemodynamically stable. Patient is currently on Coreg 6.25 mg twice a day and anticoagulation with Eliquis. Thyroid levels were elevated and the free T4 was high and accordingly the Synthroid dose was dropped down to 125 mcg on a daily basis. The patient remains in normal sinus mechanism for now Acute hypoxic respiratory failure post bronchoscopy and the patient is currently on oxygen by nasal cannula the flow to be titrated to maintain saturation above 90%. Chest x-ray findings are stable and is consistent with a right upper lobe mass, pleural thickening and loculated right-sided pleural effusion. Lung mass -lung with extensive mediastinal lymphadenopathy and pleural thickening and loculated pleural effusion. Findings are highly suspicious for malignancy. Right upper lobe masslike consolidation measuring 4.0 cm in addition to extensive mediastinal lymphadenopathy involving the paratracheal, right hilar and suprahilar area and the patient has significant pleural surface irregularities and multiloculated right-sided pleural effusions. The findings are highly suspicious for malignancy. Possibilities include adenocarcinoma of the lung, mesothelioma, and lymphoma. Note that the pleural surface is quite thickened and is reaching approximately 1.3 cm with significant irregularities and previous thoracentesis yielded no final pathology diagnosis. Nevertheless, the findings are highly suspicious for malignancy. Patient and the family was made aware. She has a poor baseline performance and functional status. She may not be a candidate for any treatment if the diagnosis of malignancy established. Nevertheless, patient and family are highly interested in establishing a final diagnosis and for that reason I offered the patient a relatively less invasive procedure which would include an endobronchial ultrasound and biopsy of the mediastinal lymph nodes. Mediastinal lymphadenopathy -detail discussed above, awaiting final pathology postbiopsy Chest wall pain -Irregular pleural surface border with multiple nodularities and secondary pain. This is likely malignant process. Rule out mesothelioma versus adenocarcinoma versus lymphoma. Offered nonsteroidal anti-inflammatory medic ations for pain control. Pleural effusion - This patient came into the hospital because of an acute hypoxic respiratory failure and she was on a BiPAP and she was transferred to us from [facility]. The patient had significant opacification of the right lung. I did a emergent thoracentesis on her and removed approximately 1.6 to 2 L of pleural fluid from the right lung. The fluid was exudative. The fluid cytology came back negative for malignancy. Initial impression was a parapneumonic effusion and the patient was treated with antibiotics. Follow-up chest x-ray still showing an opacity in the right upper lobe along with some right pleural irregularities and thickening and there is a pleural-based opacity. A follow-up CAT scan of the chest showed similar findings of multiloculated right-sided pleural effusion along with extensive pleural surface irregularities abnormalities highly suspicious for malignancy. She also has a right upper lobe mass measuring 4.0 cm. Coronary arteriosclerosis - She is post CABG and she had surgery on 2009 and she will FU with Dr Wheeler Chronic systolic heart failure -Systolic heart failure diagnosed by an echocardiogram that was done in the hospital and the patient has ejection fraction of 25% and she has some edema in lower extremities and she is seeing cardiology and she is currently on diuretics and she is taking Lasix at a dose of 40 mg once a day Non-Hodgkin's lymphoma (clinical) -She is in remission and she was diagnosed in 2013 and she has completed the chemotherapy . This involved the jaw and the head and neck C85.90: Non-Hodgkin lymphoma, unspecified, unspecified site Type 2 diabetes mellitus - Maintained on Metformin and glyburide Rheumatoid arthritis - On no treatment and she is off Ramicade Medical debility along with weight loss and diminished appetite and failure to thrive. Plan Overall condition is stable. The patient is quite debilitated. Malignancy is suspected. Awaiting the results of the biopsy that was obtained 48 hours ago. Titrate oxygen flow to maintain a saturation above 90%, currently on 4 L Chest x-ray findings are stable Cardiac rhythm sinus and the patient is currently anticoagulated and is being seen by cardiology. Synthroid dose has been modified 225 mg on a daily basis Bronchoscopy and endobronchial ultrasound and biopsy of the mediastinal lymph nodes have been completed. Pending results. I am hopeful that those will give us tissue diagnosis to establish a final diagnosis on this patient. Results are still pending for now The long-term prognosis poor based on above-mentioned comorbidities. Family is aware. Will continue to follow. Will address her CODE STATUS in addition.
[2023-05-26 16:40] LABS: Glucose,Whole Blood 101 mg/dL (70-110)
[2023-05-26 20:02] LABS: Glucose,Whole Blood 101 mg/dL (70-110)
--- NOTE | 2023-05-27 00:22 | P.PN ---
Subjective Progress Note Date: 05/26/23 Patient is a 82-year-old female with a past medical history of coronary artery disease status post quadruple bypass in 2009 in [place], history of non- Hodgkin's lymphoma, hypertension, diabetes type 2, hyperlipidemia, history of SC, osteoarthritis, rheumatoid others, hypothyroidism. Patient was brought to the hospital for bronchoscopy with endoscopic ultrasound and DVT aspiration biopsy of the mediastinal lymph node.. Postprocedure while in the recovery room patient went into atrial fibrillation with rapid ventricular rate and heart rate went up to 130s. EKG showed atrial fibrillation with rapid ventricular rate. Cardizem drip was ordered but before starting the infusion patient converted back to sinus rhythm and heart rate came down to 70s. She was admitted to the hospital for further evaluation Patient was recently admitted to the hospital from 04/15/2023 to 04/21/2023. She is admitted due to worsening shortness of breath, requiring BiPAP. Patient was also found to have right-sided pleural effusion status post paracentesis showed reactive mesothelial cells, macrophages and mixed inflammatory cells. No c cytologically malignant cells identified. CT chest on 04/15/2023 showed large right-sided pleural effusion. Repeat CT on 05/07/2023 showed decreasing but residual moderate right pleural effusion, however there is worsening irregular dural thickening/throughout the right hemithorax now measuring up to 1.3 cm thick versus 1.0 cm previously. Focal subpleural soft tissue anteromedial right lower lung measures up to 3.3 cm and appears new. New diffuse subpleural nodularity along the right-sided lung fissures. Correlate for slight interval neoplastic disease present progression, possible lymphoma. Currently patient denies any complaints of chest pain. No worsening shortness of breath. Denies any palpitations. No nausea vomiting abdominal pain or diarrhea. Patient is on Ventimask which is being titrated down to nasal cannula oxygen. No complaints of fever or chills. No diarrhea. No cough or sputum production. Denies any worsening leg swelling recently. 05/25/2023 Patient is sitting on the side of the bed. Awake alert and oriented x 3. Complains of bloating and abdominal and not able to tolerate oral diet. No bowel movement today. Otherwise patient is having atrial fibrillation with RVR last night on and off. Was started on amiodarone drip and added anticoagulation with Eliquis as per cardiology recommendations. Patient was also found to have elevated free T4 level and low TSH level. Levothyroxine dose reduced to 125 mcg daily from 200 mcg which she takes at home. Otherwise patient has been afebrile. Requiring oxygen via nasal cannula. No c omplaints of chest pain. Does have exertional shortness of breath. Laboratory data showed Pulmonary and cardiology is on board. WBC 11.0 hemoglobin 12.7 platelets 151 Sodium 136 potassium 5.4 chloride 107 bicarb is 19 BUN 59 and creatinine 0.78 and blood sugar 165 TSH 0.276 and free T4 3.66. 05/26/2023 Patient is currently sitting on the side of the bed. Awake alert and oriented x 3. Feels weak and lethargic. Currently on oxygen at 4 L via nasal cannula. Otherwise heart rate is better controlled and amiodarone changed to p.o. Patient did have a swallow evaluation. Recommends EGD as per speech pathology. Otherwise patient has been afebrile. Blood pressure is marginal. Laboratory data reviewed. Cardiology and pulmonary is on board. Current medications reviewed. Objective - Vital Signs Vital signs: Vital Signs Temp 98.0 F 05/26/23 20:00 Pulse 72 05/26/23 20:00 Resp 20 05/26/23 20:00 BP 100/66 05/26/23 20:00 Pulse Ox 92 L 05/26/23 20:00 FiO2 Intake & Output 05/26/23 05/26/23 05/27/23 06:59 18:59 06:59 Intake Total 130 Balance 130 Intake: IV 10 Invasive Line 2 10 Oral 120 Other: Voiding Method Toilet Toilet Toilet Bedside Commode Bedside Commode Bedside Commode # Voids 2 2 1 - Exam PHYSICAL EXAMINATION: Patient is lying in the bed comfortably, no acute distress, awake alert and oriented.. HEENT: Normocephalic. Neck is supple. Pupils reactive. Nostrils clear. Oral cavity is moist. Neck reveals no JVD, carotid bruits, or thyromegaly. CHEST EXAMINATION: Trachea is central. Symmetrical expansion. Right ibasilar diminished sounds and crackles noted. Nonlabored breathing.. CARDIAC: Normal S1, S2 with no gallops. No murmurs ABDOMEN: Soft. Bowel sounds normal. No organomegaly. No abdominal bruits. Extremities: Bilateral lower extremity trace edema. No clubbing or cyanosis Neurologically awake, alert, oriented x3 with well-coordinated movements. No focal deficits noted Skin: No rash or skin lesions. Psychiatric: Coperative. Nonsuicidal Musculoskeletal: No joint swelling or deformity. Normal range of motion. - Labs CBC & Chem 7: 05/25/23 08:02 05/25/23 08:02 Labs: Abnormal Lab Results - Last 24 Hours (Table) 05/26/23 Range/Units 06:10 POC Glucose (mg/dL) 129 H (70-110) mg/dL Assessment and Plan Assessment: New onset atrial fibrillation with rapid ventricular rate with heart rate in 130s. While she was in the recovery room. Patient was converted back to sinus rhythm before starting on Cardizem drip. Off amiodarone drip. Changed to p.o. Diffuse subpleural nodularity along the right sided lung fissures correlate for interval neoplastic disease progression. Mediastinal lymphadenopathy. Patient is s/p bronchoscopy and endobronchial ultrasound with needle biopsy on 05/24/2023. Acute hypoxic respiratory failure status post bronchoscopy. Currently on 4 L oxygen via nasal cannula. Recent admission with acute hypoxic respiratory failure status post right thoracentesis. fluid cytology negative for malignancy. Chronic CHF with systolic dysfunction ejection fraction 25 to 30%, mid to distal inferolateral and lateral wall hypokinesis and inferior apical wall hypokinesis. Ischemic cardiomyopathy Coronary artery disease with prior history of quadruple CABG in 2009 Hypertension Diabetes type 2 [id number] Hyperlipidemia Rheumatoid arthritis not on any treatment currently. Hypothyroidism. Patient has elevated free T4 level. Levothyroxine dose reduced to 125 mcg daily. History of non-Hodgkin's lymphoma status postchemotherapy. Currently in remission. DVT prophylaxis with heparin subcu. Plan: Patient will be continued on telemonitoring. Patient is on amiodarone drip currently Patient will be continued on statin and Coreg and is also on Lasix 20 mg every morning and Imdur. Aspirin has been discontinued. Patient was started on Eliquis. Continue with other home medication including levothyroxine. Follow-up biopsy of the mediastinal lymph node. Cardiology and pulmonary will be consulted. Continue to follow closely. Prognosis is guarded. Time with Patient: Greater than 30
[2023-05-27 05:39] LABS: Glucose,Whole Blood 104 mg/dL (70-110)
[2023-05-27 10:10] LABS: Basophils # (A) 0.1 k/uL (0-0.2); Basophils % (A) 1 %; Eosinophils # (A) 0.4 k/uL (0-0.7); Eosinophils % (A) 4 %; HCT 41.4 % (34.0-46.0); HGB 12.7 gm/dL (11.4-16.0); Hypochromasia Moderate; Lymphocytes # (A) 2.8 k/uL (1.0-4.8); Lymphocytes % (A) 27 %; MCH 30.2 pg (25.0-35.0); MCHC 30.7 g/dL (31.0-37.0); MCV 98.5 fL (80.0-100.0); Macrocytosis Slight; Mean Platelet Volume 8.8; Monocytes # (A) 0.5 k/uL (0-1.0); Monocytes % (A) 5 %; Neutrophils # (A) 6.5 k/uL (1.3-7.7); Neutrophils % (A) 62 %; Platelet Count 135 k/uL (150-450); RDW 14.7 % (11.5-15.5); WBC 10.5 k/uL (3.8-10.6)
[2023-05-27 10:22] LABS: African American GFR (CKD) 55 (>60 ml/min/1.73 sqM); Anion Gap 4 mmol/L; Blood Urea Nitrogen 52 mg/dL (7-17); Carbon Dioxide 24 mmol/L (22-30); Chloride 103 mmol/L (98-107); Glucose 119 mg/dL (74-99); Non-African American GFR(CKD) 47 (>60 ml/min/1.73 sqM); Potassium 5.8 mmol/L (3.5-5.1); Sodium 131 mmol/L (137-145)
[2023-05-27] MEDS: HYDROcodone/APAP 5-325MG 1 EACH TAB PO PRN (10:33)
--- NOTE | 2023-05-27 11:22 | P.GSCN ---
History of Present Illness Consult date: 05/27/23 Reason for Consult: concern for dysphagia History of present illness: Patient is an 82-year-old female with a past medical history of coronary artery disease status post CABG, non-Hodgkin's lymphoma, who presented to [facility] for elective bronchoscopy with endobronchial ultrasound and aspiration of suspicious mediastinal lymph nodes. Postprocedure patient had gone into atrial fibrillation with rapid ventricular rate and was subsequently admitted for further management. General surgery is consulted for further evaluation treatm ent of the patient's dysphagia. Patient states that she has had difficulty swallowing for the past 3 months. She states that the swelling is worse with solid foods but happens with liquids as well. She denies any regurgitation. No halitosis. No hematemesis. She denies any fevers or chills. No shortness of breath. She currently denies any abdominal pain. Admits to bowel movements and flatus. Tolerating liquid diet without issue. No melena or hematochezia. She denies any prior upper endoscopic evaluation. Review of Systems Negative except for as stated above Past Medical History Past Medical History: Coronary Artery Disease (CAD), Cancer, Chest Pain / Angina, Heart Failure, Diabetes Mellitus, Hyperlipidemia, Hypertension, Myocardial Infarction (RI), Osteoarthritis (OA), Respiratory Disorder, Rheumatoid Arthritis (RA), Thyroid Disorder Additional Past Medical History / Comment(s): 04/[address] [facility] with acute hypoxic respiratory failure/R parapneumonic effusio/had thoracentesi s/chf/NSTEMI. Other hx: Abnormal cat scan of chest, SOB at all times and weak, appetite very poor so taken off diabetic medications, hypothyroidism, neuropathy, 2013 lymphoma both sides of jaw/surgery one side/chemotherapy Last Myocardial Infarction Date:: 04/2023 History of Any Multi-Drug Resistant Organisms: None Reported Past Surgical History: Coronary Bypass/CABG, Heart Catheterization, Hysterectomy, Orthopedic Surgery Additional Past Surgical History / Comment(s): Partial thyroidectomy, 2010 CABG 4 vessel, R side jaw/neck surgery, bilateral carpal tunnel release Past Anesthesia/Blood Transfusion Reactions: No Reported Reaction Smoking Status: Former smoker - Past Family History Father History Unknown: Yes Family Medical History: Cancer Additional Family Medical History / Comment(s): at 59 from cancer. Mother History Unknown: Yes Family Medical History: Myocardial Infarction (RI) Additional Family Medical History / Comment(s): of RI at 55yrs. Medications and Allergies Home Medications Medication Instructions Recorded Confirmed Type Aspirin EC [Ecotrin Low Dose] 81 mg PO QAM 04/14/23 05/24/23 History Cholecalciferol [Vitamin D3 (25 25 mcg PO QAM 04/14/23 05/24/23 History Mcg = 1000 Iu)] Cyanocobalamin (Vitamin B-12) 1,000 mcg PO QAM 04/14/23 05/24/23 History [Vitamin B-12] Ferrous Sulfate [Iron (65 MG 325 mg PO QAM 04/14/23 05/24/23 History Elemental)] Levothyroxine Sodium [Synthroid] 200 mcg PO QAM 04/14/23 05/24/23 History Omeprazole 40 mg PO QAM 04/14/23 05/24/23 History Simvastatin [Zocor] 20 mg PO HS 04/14/23 05/24/23 History carvediloL [Coreg] 6.25 mg PO BID 04/14/23 05/24/23 History lisinopriL 40 mg PO QAM 04/14/23 05/24/23 History Furosemide [Lasix] 20 mg PO QAM 05/23/23 05/24/23 History Ibuprofen 600 mg PO Q8H PRN 05/23/23 05/24/23 History Isosorbide Mononitrate ER [Imdur] 30 mg PO QAM 05/23/23 05/24/23 History Allergies Allergy/AdvReac Type Severity Reaction Status Date / Time atorvastatin [From Lipitor] Allergy Swelling Verified 05/24/23 13:19 bisacodyl Allergy Rash/Hives Verified 05/24/23 13:19 [From Dulcolax (bisacodyl)] carisoprodol [From Soma] Allergy Unknown Verified 05/24/23 13:19 morphine Allergy Vomiting Verified 05/24/23 13:19 orphenadrine Allergy Unknown Verified 05/24/23 13:19 pseudoephedrine Allergy Rash/Hives Verified 05/24/23 13:19 [From Sudafed] tramadol [From Ultram] Allergy Unknown Verified 05/24/23 13:19 Surgical - Exam Vital Signs Temp Pulse Resp BP Pulse Ox 97.1 F L 77 20 129/60 90 L 05/24/23 13:24 05/24/23 13:24 05/24/23 13:24 05/24/23 13:24 05/24/23 13:24 Gen: AxO, NAD Pulm: non-labored respirations HEENT: supple, trachea midline, non-tender to palpation No cervical lymphadenopathy appreciated Abd: soft, non-tender, non-distended. No guarding/rebound/rigidity Extrem: no edema seen Results - Labs 05/27/23 09:44 05/27/23 09:44 Abnormal Lab Results - Last 24 Hours (Table) 05/27/23 05/27/23 Range/Units 09:44 09:44 MCHC 30.7 L (31.0-37.0) g/dL Plt Count 135 L (150-450) k/uL Sodium 131 L (137-145) mmol/L Potassium 5.8 H (3.5-5.1) mmol/L BUN 52 H (7-17) mg/dL Creatinine 1.09 H (0.52-1.04) mg/dL Glucose 119 H (74-99) mg/dL Diabetes panel 05/27/23 Range/Units 09:44 Sodium 131 L (137-145) mmol/L Potassium 5.8 H (3.5-5.1) mmol/L Chloride 103 (98-107) mmol/L Carbon Dioxide 24 (22-30) mmol/L BUN 52 H (7-17) mg/dL Creatinine 1.09 H (0.52-1.04) mg/dL Glucose 119 H (74-99) mg/dL Calcium 10.0 (8.4-10.2) mg/dL Calcium panel 05/27/23 Range/Units 09:44 Calcium 10.0 (8.4-10.2) mg/dL Pituitary panel 05/27/23 Range/Units 09:44 Sodium 131 L (137-145) mmol/L Potassium 5.8 H (3.5-5.1) mmol/L Chloride 103 (98-107) mmol/L Carbon Dioxide 24 (22-30) mmol/L BUN 52 H (7-17) mg/dL Creatinine 1.09 H (0.52-1.04) mg/dL Glucose 119 H (74-99) mg/dL Calcium 10.0 (8.4-10.2) mg/dL Adrenal panel 05/27/23 Range/Units 09:44 Sodium 131 L (137-145) mmol/L Potassium 5.8 H (3.5-5.1) mmol/L Chloride 103 (98-107) mmol/L Carbon Dioxide 24 (22-30) mmol/L BUN 52 H (7-17) mg/dL Creatinine 1.09 H (0.52-1.04) mg/dL Glucose 119 H (74-99) mg/dL Calcium 10.0 (8.4-10.2) mg/dL Assessment and Plan Assessment: Patient is a 82 year old female who is s/p bronchoscopy with EBUS for mediastinal lymphadenopathy with Afib RVR post-procedure who presents with dysphagia for past 2-3 months Plan: -Diet as tolerated -PRN pain and nausea control -Care per primary -Patient will require upper GI esophagogram as well as endoscopy for evaluation of her dysphagia -Await biopsy results of mediastinal lymph nodes -No acute intervention; will plan for dysphagia workup outpt vs inpt once stable from cardiology standpoint Jordi Reece MD General Surgery
[2023-05-27 11:34] LABS: Glucose,Whole Blood 112 mg/dL (70-110)
[2023-05-27] MEDS: SODIUM ZIRCONIUM CYCLOSILICATE 10 GM PACKET PO ONE (12:16)
[2023-05-27] MEDS: CALCIUM GLUCONATE IN NACL 1 GM in SALINE 1 100ML.BAG IVPB ONE (12:16)
--- NOTE | 2023-05-27 13:13 | P.PN ---
Subjective Progress Note Date: 05/27/23 Patient is a 82-year-old female with a past medical history of coronary artery disease status post quadruple bypass in 2009 in [place], history of non- Hodgkin's lymphoma, hypertension, diabetes type 2, hyperlipidemia, history of MO, osteoarthritis, rheumatoid others, hypothyroidism. Patient was brought to the hospital for bronchoscopy with endoscopic ultrasound and DVT aspiration biopsy of the mediastinal lymph node.. Postprocedure while in the recovery room patient went into atrial fibrillation with rapid ventricular rate and heart rate went up to 130s. EKG showed atrial fibrillation with rapid ventricular rate. Cardizem drip was ordered but before starting the infusion patient converted back to sinus rhythm and heart rate came down to 70s. She was admitted to the hospital for further evaluation Patient was recently admitted to the hospital from 04/15/2023 to 04/21/2023. She is admitted due to worsening shortness of breath, requiring BiPAP. Patient was also found to have right-sided pleural effusion status post paracentesis showed reactive mesothelial cells, macrophages and mixed inflammatory cells. No c cytologically malignant cells identified. CT chest on 04/15/2023 showed large right-sided pleural effusion. Repeat CT on 05/07/2023 showed decreasing but residual moderate right pleural effusion, however there is worsening irregular dural thickening/throughout the right hemithorax now measuring up to 1.3 cm thick versus 1.0 cm previously. Focal subpleural soft tissue anteromedial right lower lung measures up to 3.3 cm and appears new. New diffuse subpleural nodularity along the right-sided lung fissures. Correlate for slight interval neoplastic disease present progression, possible lymphoma. Currently patient denies any complaints of chest pain. No worsening shortness of breath. Denies any palpitations. No nausea vomiting abdominal pain or diarrhea. Patient is on Ventimask which is being titrated down to nasal cannula oxygen. No complaints of fever or chills. No diarrhea. No cough or sputum production. Denies any worsening leg swelling recently. 05/25/2023 Patient is sitting on the side of the bed. Awake alert and oriented x 3. Complains of bloating and abdominal and not able to tolerate oral diet. No bowel movement today. Otherwise patient is having atrial fibrillation with RVR last night on and off. Was started on amiodarone drip and added anticoagulation with Eliquis as per cardiology recommendations. Patient was also found to have elevated free T4 level and low TSH level. Levothyroxine dose reduced to 125 mcg daily from 200 mcg which she takes at home. Otherwise patient has been afebrile. Requiring oxygen via nasal cannula. No c omplaints of chest pain. Does have exertional shortness of breath. Laboratory data showed Pulmonary and cardiology is on board. WBC 11.0 hemoglobin 12.7 platelets 151 Sodium 136 potassium 5.4 chloride 107 bicarb is 19 BUN 59 and creatinine 0.78 and blood sugar 165 TSH 0.276 and free T4 3.66. 05/26/2023 Patient is currently sitting on the side of the bed. Awake alert and oriented x 3. Feels weak and lethargic. Currently on oxygen at 4 L via nasal cannula. Otherwise heart rate is better controlled and amiodarone changed to p.o. Patient did have a swallow evaluation. Recommends EGD as per speech pathology. Otherwise patient has been afebrile. Blood pressure is marginal. Laboratory data reviewed. Cardiology and pulmonary is on board. 05/26. Patient seen and examined. Complaining of back pain. Currently on 3 L of oxygen. Gets short of breath on minimal exertion. Complaining of dysphagia REVIEW OF SYSTEMS: CONSTITUTIONAL: No fever, no malaise,. CARDIOVASCULAR: No chest pain, no palpitations, no syncope. PULMONARY: As mentioned above GASTROINTESTINAL: No diarrhea, no nausea, no vomiting, no abdominal pain. NEUROLOGICAL: No headaches, no weakness, PHYSICAL EXAMINATION: GENERAL: The patient is alert and oriented x3, not in any acute distress. Well developed, well nourished. HEENT: Pupils are round and equally reacting to light. EOMI. No scleral icterus. No conjunctival pallor. Normocephalic, atraumatic. No pharyngeal erythema. No thyromegaly. CARDIOVASCULAR: S1 and S2 present. No murmurs, rubs, or gallops. PULMONARY: Coarse breath sound bilaterally, bilateral crackles audible ABDOMEN: Soft, nontender, nondistended, normoactive bowel sounds. No palpable or ganomegaly. MUSCULOSKELETAL: No joint swelling or deformity. EXTREMITIES: No cyanosis, clubbing, or pedal edema. NEUROLOGICAL: Gross neurological examination did not reveal any focal deficits. SKIN: No rashes. Assessment and plan New onset atrial fibrillation with rapid ventricular rate with heart rate in 130s. While she was in the recovery room. Patient was converted back to sinus rhythm before starting on Cardizem drip. Off amiodarone drip. Changed to p.o. Diffuse subpleural nodularity along the right sided lung fissures correlate for interval neoplastic disease progression. Mediastinal lymphadenopathy. Patient is s/p bronchoscopy and endobronchial ultrasound with needle biopsy on 05/24/2023. Acute hypoxic respiratory failure status post bronchoscopy. Currently on 4 L oxygen via nasal cannula. Recent admission with acute hypoxic respiratory failure status post right thoracentesis. fluid cytology negative for malignancy. Chronic CHF with systolic dysfunction ejection fraction 25 to 30%, mid to distal inferolateral and lateral wall hypokinesis and inferior apical wall hypokinesis. Ischemic cardiomyopathy Dysphagia Coronary artery disease with prior history of quadruple CABG in 2009 Hypertension Diabetes type 2 [id number] Hyperlipidemia Rheumatoid arthritis not on any treatment currently. Hypothyroidism. Patient has elevated free T4 level. Levothyroxine dose reduced to 125 mcg daily. History of non-Hodgkin's lymphoma status postchemotherapy. Currently in remission. Monitor vital signs Monitor CBC Monitor CMP Continue telemetry monitoring Encourage use of incentive spirometer Continue amiodarone drip Continue Eliquis Continue oral Lasix Follow-up biopsy of the mediastinal lymph node. Cardiology following Pulmonology following Surgery consulted for dysphagia, recommend doing esophagogram as well as endoscopy once medically stable Labs and medication were reviewed.. Continue same treatment. Continue with symptomatic treatment. Resume home medication. Monitor labs and vitals. DVT and GI prophylaxis. Further recommendations as per clinical course of the patient Dictation was produced using [employer] dictation software. please excuse any grammatical, word or spelling errors. Objective - Vital Signs Vital signs: Vital Signs Temp 97.5 F L 05/27/23 09:25 Pulse 67 05/27/23 09:25 Resp 18 05/27/23 09:25 BP 93/55 05/27/23 09:25 Pulse Ox 95 05/27/23 09:25 FiO2 Intake & Output 05/26/23 05/27/23 05/27/23 18:59 06:59 18:59 Intake Total 130 360 Balance 130 360 Intake: IV 10 10 Invasive Line 2 10 10 Oral 120 350 Other: Voiding Method Toilet Toilet Bedside Commode Bedside Commode # Voids 2 1 1 # Bowel Movements 1 - Labs CBC & Chem 7: 05/27/23 09:44 05/27/23 09:44
--- NOTE | 2023-05-27 13:17 | P.PN ---
Subjective Progress Note Date: 05/27/23 This is a 82-year-old female patient was suspected to have malignancy. The patient has been having progressive worsening in her health status in general. She has not been eating. She has been extremely weak and debilitated. She was in the hospital approximately a month ago and at that time she came in with acute hypoxic respiratory failure and the patient was initially supported with BiPAP and subsequently was found to have a right-sided pleural effusion. I performed a bedside thoracentesis on this patient and a total of 1.6 L of fluid was aspirated and fluid cytology was negative for malignancy. Echocardiogram showed impaired LV function with an EF of around 25 to 30% and there was some mi d to distal anterolateral wall hypokinesis and apical hypokinesis. The patient also had mild to moderate aortic valve calcification without any stenosis. She is subsequent CAT scan of the chest showed a loculated moderate-sized right- sided pleural effusion and irregular pleural wall thickening and the rind throughout the right hemithorax up to 1.3 cm in size and there was also what seems to be right upper lobe mass with extension into the mediastinum in addition to lymphadenopathy within the right hilum measuring around 2.3 cm in size and right suprahilar measuring 1.9 cm in size and in the subcarinal area in addition. There was a mass in the right upper lobe that is pleural-based opacity measuring 4.0 cm in size. Of significance was extensive pleural surface irregularity and nodular structures and this was obviously a manifestation of a neoplastic process and the concern was adenocarcinoma versus mesothelioma versus lymphoma as the patient is known to have a previous history of lymphoma. This was explained to the patient and the family members at length. Family was adamant in establishing a diagnosis. Based on that, the patient was brought in today patient underwent an endobronchial ultrasound under general anesthesia. I did not biopsy the right upper lobe mass. I was going more conservative because of her medical problems and I ended up doing a transbronchial needle aspirate of station 10 R and station 7 lymph nodes. Note that following her procedure, the patient was extubated and she got transferred to recovery where she went into A- fib RVR. I ordered Cardizem drip and this was not started and by the time she was about to start the Cardizem she converted to normal sinus rhythm. I discussed the findings with the family. The family told me that the patient's condition was progressively getting worse and she was not eating and they were very much concerned about her health in general and they wanted to keep her in the hospital. As such, the patient will be hospitalized to telemetry unit. She is known to have a left atrial ejection fraction of 25%. She is also known to have history of rheumatoid arthritis and she is currently off Remicade. She has diabetes mellitus type 2, coronary artery disease, hyperlipidemia, hyperlipidemia, remote history of non-Hodgkin's lymphoma. On today's evaluation of 05/25/2023, the patient is stable on 4L of oxygen by nasal cannula. Her cardiac rhythm is back to sinus. She is started on anticoagulation and she is currently on Eliquis. She is also on Lasix 20 mg p.o. daily. She is on Coreg 6.25 mg twice a day. Denies having any new complaints. The white cell count 11 with a hemoglobin 12.7 and a platelet count of 151. Sodium is at 136, BUN is at 59 with a creatinine of 0.7 and a potassium level is at 5.4. Thyroid function test shows a TSH free of 3.66 with a free T4 of 0.276. The patient remains on levothyroxine at 125 mcg p.o. daily. The dose of the thyroid has been modified and the patient has been just from 200 mcg on 225. On today's evaluation of 05/26/2023, the patient is resting comfortably in bed. No specific complaints. She is lethargic and weak. She remains on 40s of oxygen by nasal cannula with a pulse ox of 94%. Results of the biopsy are still pending for now. The patient has no significant complaints. The patient has chest wall pain on the right. This is an ongoing chronic problem dated 2 abnormalities that were described earlier. The patient is currently in normal sinus mechanism. The patient's thyroid dose has been i adjusted by the medical group. [employer] Member also on the case. On today's evaluation of 05/27/2023, the patient is resting comfortably in bed. No specific complaints. Awaiting the results of the biopsy. WBC count is at 10.5 and hemoglobin 12 .7 and a platelet count of 135. The rest of the blood work shows a BUN of 62 with a creatinine of 1.09 and sodium levels at 131 with a potassium level of 5.8. The patient's is resting comfortably in bed. No other issues for now. She is complaining of pain along the right lateral chest area. She remains on anticoagulation with Eliquis 5 mg p.o. twice a day. She remains on her routine outpatient medications. Surgical consultation for dysphagia was done. Patient will be given an upper GI esophagogram and further workup regarding this dysphagia will be done depending on the results of the endobronchial ultrasound biopsies from the mediastinum. Highly suspicious for malignancy as mentioned. Objective - Vital Signs Vital signs: Vital Signs Temp 97.5 F L 05/27/23 09:25 Pulse 67 05/27/23 09:25 Resp 18 05/27/23 09:25 BP 93/55 05/27/23 09:25 Pulse Ox 95 05/27/23 09:25 FiO2 Intake & Output 05/26/23 05/27/23 05/27/23 18:59 06:59 18:59 Intake Total 130 360 Balance 130 360 Intake: IV 10 10 Invasive Line 2 10 10 Oral 120 350 Other: Voiding Method Toilet Toilet Bedside Commode Bedside Commode # Voids 2 1 1 # Bowel Movements 1 - Exam General Appearance no diaphoresis, dyspnea, pallor, or respiratory distress and speech not interrupted by breaths, not cachectic, and the patient is currently on 4 L of O2 nasal cannula l. HEENT no pursed lip breathing, jugular venous distention, mucous membrane cyanosis, or perioral cyanosis and mallampati classification: class 1 and Mallampati Classification: Class 4. Chest no retractions, rhonchi, hyperinflation, barrel chest, sternocleidomastoid muscle contractions, supraclavicular retractions, intercostal retractions, prolonged expiratory wheezing, or decreased air movement and decreased air movement and (normal) adventitious sounds: rales / crackles: bilaterally: midlung white. Heart no right ventricular heave, distant heart sounds, or s3 gallop and (normal) jugular vein and vein: jugular venous distention: by 0cm. GI bowel sounds: hyperactive (borborygmi) and diminished or absent. Extremities no cyanosis or clubbing and edema. Neurologic no somnolence, confusion, or decreased mental status. Assisstive Devices: ambulates with no assitive devices and ambulates with walker. Gait and Mobility: gait WNL and full weight bearing.Skin: General Appearance normal and (normal) normal except as noted. - Labs CBC & Chem 7: 05/27/23 09:44 05/27/23 09:44 Assessment and Plan Plan: New onset atrial fibrillation with RVR, converted to normal sinus rhythm and the patient Is currently hemodynamically stable. Patient is currently on Coreg 6.25 mg twice a day and anticoagulation with Eliquis. Thyroid levels were elevated and the free T4 was high and accordingly the Synthroid dose was dropped down to 125 mcg on a daily basis. The patient remains in normal sinus mechanism for now Acute hypoxic respiratory failure post bronchoscopy and the patient is currently on oxygen by nasal cannula the flow to be titrated to maintain saturation above 90%. Chest x-ray findings are stable and is consistent with a right upper lobe mass, pleural thickening and loculated right-sided pleural effusion. Lung mass -lung with extensive mediastinal lymphadenopathy and pleural thickening and loculated pleural effusion. Findings are highly suspicious for malignancy. Right upper lobe masslike consolidation measuring 4.0 cm in addition to extensive mediastinal lymphadenopathy involving the paratracheal, right hilar and suprahilar area and the patient has significant pleural surface irregularities and multiloculated right-sided pleural effusions. The findings are highly suspicious for malignancy. Possibilities include adenocarcinoma of the lung, mesothelioma, and lymphoma. Note that the pleural surface is quite thickened and is reaching approximately 1.3 cm with significant irregularities and previous thoracentesis yielded no final pathology diagnosis. Nevertheless, the findings are highly suspicious for malignancy. Patient and the family was made aware. She has a poor baseline performance and functional status. She may not be a candidate for any treatment if the diagnosis of malignancy established. Nevertheless, patient and family are highly interested in establishing a final diagnosis and for that reason I offered the patient a relatively less invasive procedure which would include an endobronchial ultrasound and biopsy of the mediastinal lymph nodes. Mediastinal lymphadenopathy -detail discussed above, awaiting final pathology postbiopsy Chest wall pain -Irregular pleural surface border with multiple nodularities and secondary pain. This is likely malignant process. Rule out mesothelioma versus adenocarcinoma versus lymphoma. Offered nonsteroidal anti-inflammatory medications for pain control. Pleural effusion - This patient came into the hospital because of an acute hypoxic respiratory failure and she was on a BiPAP and she was transferred to us from [facility]. The patient had significant opacification of the right lung. I did a emergent thoracentesis on her and removed approximately 1.6 to 2 L of pleural fluid from the right lung. The fluid was exudative. The fluid cytology came back negative for malignancy. Initial impression was a parapneumonic effusion and the patient was treated with antibiotics. Follow-up chest x-ray still showing an opacity in the right upper lobe along with some right pleural irregularities and thickening and there is a pleural-based opacity. A follow-up CAT scan of the chest showed similar findings of multiloculated right-sided pleural effusion along with extensive pleural surface irregularities abnormalities highly suspicious for malignancy. She also has a right upper lobe mass measuring 4.0 cm. Coronary arteriosclerosis - She is post CABG and she had surgery on 2009 and she will FU with Dr Wheeler Chronic systolic heart failure -Systolic heart failure diagnosed by an echocardiogram that was done in the hospital and the patient has ejection fraction of 25% and she has some edema in lower extremities and she is seeing cardiology and she is currently on diuretics and she is taking Lasix at a dose of 40 mg once a day Non-Hodgkin's lymphoma (clinical) -She is in remission and she was diagnosed in 2013 and she has completed the chemotherapy . This involved the jaw and the head and neck C85.90: Non-Hodgkin lymphoma, unspecified, unspecified site Type 2 diabetes mellitus - Maintained on Metformin and glyburide Rheumatoid arthritis - On no treatment and she is off Ramicade Medical debility along with weight loss and diminished appetite and failure to thrive. Plan No new issues for now. Condition remains stable pending biopsies of the mediastinal lymph node that was collected during a endobronchial ultrasound that was done earlier. Malignancy is highly suspected. Overall condition is stable. The patient is quite debilitated. Malignancy is suspected. Awaiting the results of the biopsy that was obtained 72 hours ago. Titrate oxygen flow to maintain a saturation above 90%, currently on 4 L Chest x-ray findings are stable Cardiac rhythm sinus and the patient is currently anticoagulated and is being seen by cardiology. Synthroid dose has been modified 225 mg on a daily basis Bronchoscopy and endobronchial ultrasound and biopsy of the mediastinal lymph n odes have been completed. Pending results. I am hopeful that those will give us tissue diagnosis to establish a final diagnosis on this patient. Results are still pending for now General surgery has seen the patient regarding dysphagia. The long-term prognosis poor based on above-mentioned comorbidities. Family is aware. Will continue to follow. Will address her CODE STATUS in addition.
[2023-05-27 16:16] LABS: Glucose,Whole Blood 105 mg/dL (70-110)
[2023-05-27 20:08] LABS: Glucose,Whole Blood 100 mg/dL (70-110)
[2023-05-27] MEDS: guaiFENesin 600 MG TABLET.ER PO SCH (21:29)
[2023-05-28 05:54] LABS: Glucose,Whole Blood 92 mg/dL (70-110)
[2023-05-28 11:17] LABS: Glucose,Whole Blood 97 mg/dL (70-110)
--- NOTE | 2023-05-28 12:49 | P.PN ---
Subjective Progress Note Date: 05/28/23 This is a 82-year-old female patient was suspected to have malignancy. The patient has been having progressive worsening in her health status in general. She has not been eating. She has been extremely weak and debilitated. She was in the hospital approximately a month ago and at that time she came in with acute hypoxic respiratory failure and the patient was initially supported with BiPAP and subsequently was found to have a right-sided pleural effusion. I performed a bedside thoracentesis on this patient and a total of 1.6 L of fluid was aspirated and fluid cytology was negative for malignancy. Echocardiogram showed impaired LV function with an EF of around 25 to 30% and there was some mi d to distal anterolateral wall hypokinesis and apical hypokinesis. The patient also had mild to moderate aortic valve calcification without any stenosis. She is subsequent CAT scan of the chest showed a loculated moderate-sized right- sided pleural effusion and irregular pleural wall thickening and the rind throughout the right hemithorax up to 1.3 cm in size and there was also what seems to be right upper lobe mass with extension into the mediastinum in addition to lymphadenopathy within the right hilum measuring around 2.3 cm in size and right suprahilar measuring 1.9 cm in size and in the subcarinal area in addition. There was a mass in the right upper lobe that is pleural-based opacity measuring 4.0 cm in size. Of significance was extensive pleural surface irregularity and nodular structures and this was obviously a manifestation of a neoplastic process and the concern was adenocarcinoma versus mesothelioma versus lymphoma as the patient is known to have a previous history of lymphoma. This was explained to the patient and the family members at length. Family was adamant in establishing a diagnosis. Based on that, the patient was brought in today patient underwent an endobronchial ultrasound under general anesthesia. I did not biopsy the right upper lobe mass. I was going more conservative because of her medical problems and I ended up doing a transbronchial needle aspirate of station 10 R and station 7 lymph nodes. Note that following her procedure, the patient was extubated and she got transferred to recovery where she went into A- fib RVR. I ordered Cardizem drip and this was not started and by the time she was about to start the Cardizem she converted to normal sinus rhythm. I discussed the findings with the family. The family told me that the patient's condition was progressively getting worse and she was not eating and they were very much concerned about her health in general and they wanted to keep her in the hospital. As such, the patient will be hospitalized to telemetry unit. She is known to have a left atrial ejection fraction of 25%. She is also known to have history of rheumatoid arthritis and she is currently off Remicade. She has diabetes mellitus type 2, coronary artery disease, hyperlipidemia, hyperlipidemia, remote history of non-Hodgkin's lymphoma. On today's evaluation of 05/25/2023, the patient is stable on 4L of oxygen by nasal cannula. Her cardiac rhythm is back to sinus. She is started on anticoagulation and she is currently on Eliquis. She is also on Lasix 20 mg p.o. daily. She is on Coreg 6.25 mg twice a day. Denies having any new complaints. The white cell count 11 with a hemoglobin 12.7 and a platelet count of 151. Sodium is at 136, BUN is at 59 with a creatinine of 0.7 and a potassium level is at 5.4. Thyroid function test shows a TSH free of 3.66 with a free T4 of 0.276. The patient remains on levothyroxine at 125 mcg p.o. daily. The dose of the thyroid has been modified and the patient has been just from 200 mcg on 225. On today's evaluation of 05/26/2023, the patient is resting comfortably in bed. No specific complaints. She is lethargic and weak. She remains on 40s of oxygen by nasal cannula with a pulse ox of 94%. Results of the biopsy are still pending for now. The patient has no significant complaints. The patient has chest wall pain on the right. This is an ongoing chronic problem dated 2 abnormalities that were described earlier. The patient is currently in normal sinus mechanism. The patient's thyroid dose has been i adjusted by the medical group. Half S[employer] Fitter also on the case. On today's evaluation of 05/27/2023, the patient is resting comfortably in bed. No specific complaints. Awaiting the results of the biopsy. WBC count is at 10.5 and hemoglobin 12 .7 and a platelet count of 135. The rest of the blood work shows a BUN of 62 with a creatinine of 1.09 and sodium levels at 131 with a potassium level of 5.8. The patient's is resting comfortably in bed. No other issues for now. She is complaining of pain along the right lateral chest area. She remains on anticoagulation with Eliquis 5 mg p.o. twice a day. She remains on her routine outpatient medications. Surgical consultation for dysphagia was done. Patient will be given an upper GI esophagogram and further workup regarding this dysphagia will be done depending on the results of the endobronchial ultrasound biopsies from the mediastinum. Highly suspicious for malignancy as mentioned. On today's evaluation of 05/28/2023, the patient resting comfortably in bed. No change in her condition. Awaiting final pathology from the biopsies and she should this should be available by Monday. Meanwhile, the patient has no specific complaints. She remains on 4 L with a pulse ox of 95%. Resting comfortably in bed. Pain remains unchanged. Objective - Vital Signs Vital signs: Vital Signs Temp 97.8 F 05/28/23 07:41 Pulse 69 05/28/23 07:41 Resp 19 05/28/23 07:41 BP 93/58 05/28/23 07:41 Pulse Ox 95 05/28/23 07:41 FiO2 Intake & Output 05/27/23 05/28/23 05/28/23 18:59 06:59 18:59 Intake Total 822 Balance 822 Intake: IV 10 Invasive Line 2 10 Oral 812 Other: Voiding Method Toilet Toilet Bedside Commode Bedside Commode # Voids 1 1 # Bowel Movements 1 - Exam General Appearance no diaphoresis, dyspnea, pallor, or respiratory distress and speech not interrupted by breaths, not cachectic, and the patient is currently on 4 L of O2 nasal cannula l. HEENT no pursed lip breathing, jugular venous distention, mucous membrane cyanosis, or perioral cyanosis and mallampati classification: class 1 and Mallampati Classification: Class 4. Chest no retractions, rhonchi, hyperinflation, barrel chest, sternocleidomastoid muscle contractions, supraclavicular retractions, intercostal retractions, prolonged expiratory wheezing, or decreased air movement and decreased air movement and (normal) adventitious sounds: rales / crackles: bilaterally: midlung white. Heart no right ventricular heave, distant heart sounds, or s3 gallop and (normal) jugular vein and vein: jugular venous distention: by 0cm. GI bowel sounds: hyperactive (borborygmi) and diminished or absent. Extremities no cyan osis or clubbing and edema. Neurologic no somnolence, confusion, or decreased mental status. Assisstive Devices: ambulates with no assitive devices and ambulates with walker. Gait and Mobility: gait WNL and full weight bearing.Skin: General Appearance normal and (normal) normal except as noted. - Labs CBC & Chem 7: 05/27/23 09:44 05/27/23 17:22 Labs: Abnormal Lab Results - Last 24 Hours (Table) 05/27/23 05/27/23 05/27/23 Range/Units 09:44 11:24 17:22 Sodium 131 L (137-145) mmol/L Potassium 5.8 H 5.4 H (3.5-5.1) mmol/L BUN 52 H (7-17) mg/dL Creatinine 1.09 H (0.52-1.04) mg/dL Glucose 119 H (74-99) mg/dL POC Glucose (mg/dL) 112 H (70-110) mg/dL Assessment and Plan Plan: New onset atrial fibrillation with RVR, converted to normal sinus rhythm and the patient Is currently hemodynamically stable. Patient is currently on Coreg 6.25 mg twice a day and anticoagulation with Eliquis. Thyroid levels were elevated and the free T4 was high and accordingly the Synthroid dose was dropped down to 125 mcg on a daily basis. The patient remains in normal sinus mechanism for now Acute hypoxic respiratory failure post bronchoscopy and the patient is currently on oxygen by nasal cannula the flow to be titrated to maintain saturation above 90%. Chest x-ray findings are stable and is consistent with a right upper lobe mass, pleural thickening and loculated right-sided pleural effusion. Lung mass -lung with extensive mediastinal lymphadenopathy and pleural thickening and loculated pleural effusion. Findings are highly suspicious for malignancy. Right upper lobe masslike consolidation measuring 4.0 cm in addition to extensive mediastinal lymphadenopathy involving the paratracheal, right hilar and suprahilar area and the patient has significant pleural surface irregularities and multiloculated right-sided pleural effusions. The findings are highly suspicious for malignancy. Possibilities include adenocarcinoma of the lung, mesothelioma, and lymphoma. Note that the pleural surface is quite thickened and is reaching approximately 1.3 cm with significant irregularities and previous thoracentesis yielded no final pathology diagnosis. Nevertheless, the findings are highly suspicious for malignancy. Patient and the family was made aware. She has a poor baseline performance and functional status. She may not be a candidate for any treatment if the diagnosis of malignancy established. Nevertheless, patient and family are highly interested in establishing a final diagnosis and for that reason I offered the patient a relatively less invasive procedure which would include an endobronchial ultrasound and biopsy of the mediastinal lymph nodes. Mediastinal lymphadenopathy -detail discussed above, awaiting final pathology postbiopsy Chest wall pain -Irregular pleural surface border with multiple nodularities and secondary pain. This is likely malignant process. Rule out mesothelioma versus adenocarcinoma versus lymphoma. Offered nonsteroidal anti-inflammatory medications for pain control. Pleural effusion - This patient came into the hospital because of an acute hypoxic respiratory failure and she was on a BiPAP and she was transferred to us from [facility]. The patient had significant opacification of the right lung. I did a emergent thoracentesis on her and removed approximately 1.6 to 2 L of pleural fluid from the right lung. The fluid was exudative. The fluid cytology came back negative for malignancy. Initial impression was a parapneumonic effusion and the patient was treated with antibiotics. Follow-up chest x-ray still showing an opacity in the right upper lobe along with some right pleural irregularities and thickening and there is a pleural-based opacity. A follow-up CAT scan of the chest showed similar findings of multiloculated right-sided pleural effusion along with extensive pleural surface irregularities abnormalities highly suspicious for malignancy. She also has a right upper lobe mass measuring 4.0 cm. Coronary arteriosclerosis - She is post CABG and she had surgery on 2009 and she will FU with Dr Wheeler Chronic systolic heart failure -Systolic heart failure diagnosed by an echocardiogram that was done in the hospital and the patient has ejection fraction of 25% and she has some edema in lower extremities and she is seeing cardiology and she is currently on diuretics and she is taking Lasix at a dose of 40 mg once a day Non-Hodgkin's lymphoma (clinical) -She is in remission and she was diagnosed in 2013 and she has completed the chemotherapy . This involved the jaw and the head and neck C85.90: Non-Hodgkin lymphoma, unspecified, unspecified site Type 2 diabetes mellitus - Maintained on Metformin and glyburide Rheumatoid arthritis - On no treatment and she is off Ramicade Medical debility along with weight loss and diminished appetite and failure to thrive. Plan Condition remains stable. With no interval cell changer the past 24 to 48 hours. Remains in cardiac rhythm but sinus. No new issues for now. Condition remains stable pending biopsies of the mediastinal lymph node that was collected during a endobronchial ultrasound that was done earlier. Malignancy is highly suspected. Overall condition is stable. The patient is quite debilitated. Malignancy is suspected. Awaiting the results of the biopsy that was obtained 72 hours ago. Titrate oxygen flow to maintain a saturation above 90%, currently on 4 L Chest x-ray findings are stable Cardiac rhythm sinus and the patient is currently anticoagulated and is being seen by cardiology. Synthroid dose has been modified 225 mg on a daily basis Bronchoscopy and endobronchial ultrasound and biopsy of the mediastinal lymph nodes have been completed. Pending results. I am hopeful that those will give us tissue diagnosis to establish a final diagnosis on this patient. Results are still pending for now General surgery has seen the patient regarding dysphagia. The long-term prognosis poor based on above-mentioned comorbidities. Family is aware. Will continue to follow. Will address her CODE STATUS in addition.
[2023-05-28 14:07] LABS: African American GFR (CKD) 84 (>60 ml/min/1.73 sqM); Anion Gap 8 mmol/L; Blood Urea Nitrogen 49 mg/dL (7-17); Carbon Dioxide 18 mmol/L (22-30); Chloride 105 mmol/L (98-107); Glucose 91 mg/dL (74-99); Non-African American GFR(CKD) 73 (>60 ml/min/1.73 sqM); Sodium 131 mmol/L (137-145)
--- NOTE | 2023-05-28 16:02 | P.PN ---
Subjective Progress Note Date: 05/28/23 Family at bedside. Patient lost 60 pounds unintentional in over 1 month. Has trouble swallowing oropharyngeal phase. Recommend upper endoscopy with possible rigid dilation due to high likelihood of presbyesophagus. Also may benefit from swallow study. Objective - Vital Signs Vital signs: Vital Signs Temp 97.8 F 05/28/23 13:27 Pulse 59 L 05/28/23 13:27 Resp 17 05/28/23 13:27 BP 97/56 05/28/23 13:27 Pulse Ox 97 05/28/23 13:27 FiO2 Intake & Output 05/27/23 05/28/23 05/28/23 18:59 06:59 18:59 Intake Total 822 Balance 822 Intake: IV 10 Invasive Line 2 10 Oral 812 Other: Voiding Method Toilet Toilet Bedside Commode Bedside Commode # Voids 1 1 # Bowel Movements 1 - Labs CBC & Chem 7: 05/27/23 09:44 05/28/23 12:17 Labs: Abnormal Lab Results - Last 24 Hours (Table) 05/27/23 05/28/23 Range/Units 17:22 12:17 Sodium 131 L (137-145) mmol/L Potassium 5.4 H 6.0 H (3.5-5.1) mmol/L Carbon Dioxide 18 L (22-30) mmol/L BUN 49 H (7-17) mg/dL
[2023-05-28 16:36] LABS: Glucose,Whole Blood 96 mg/dL (70-110)
[2023-05-28 19:47] LABS: Glucose,Whole Blood 105 mg/dL (70-110)
[2023-05-29 06:15] LABS: Glucose,Whole Blood 92 mg/dL (70-110)
[2023-05-29 08:29] LABS: HCT 35.6 % (37.2-46.3); HGB 11.2 g/dL (12.0-15.0); MCH 29.9 pg (27.0-32.0); MCHC 31.5 g/dL (32.0-37.0); MCV 95.2 FL (80.0-97.0); Mean Platelet Volume 12.4 FL (9.5-12.2); NRBC Per 100 WBC 0 X 10*3/uL (0.00-0.01); Platelet Count 131 X 10*3/uL (140-440); RBC 3.74 X 10*6/uL (4.10-5.20); RDW 15.3 % (11.5-14.5); WBC 9.29 X 10*3/uL (4.50-10.00)
[2023-05-29 08:42] LABS: ALT 10 U/L (8-44); AST 12 U/L (13-35); Albumin 2.7 g/dL (3.8-4.9); Albumin/Globulin Ratio 1.42 Ratio (1.60-3.17); Alkaline Phosphatase 47 U/L (41-126); Blood Urea Nitrogen 44.4 mg/dL (9.0-27.0); Calcium 10.1 mg/dL (8.7-10.3); Carbon Dioxide 24.2 mmol/L (21.6-31.8); Chloride 102 mmol/L (96-109); Globulin 1.9 g/dL (1.6-3.3); Glucose 90 mg/dL (70-110); Potassium 5.6 mmol/L (3.5-5.5); Sodium 133 mmol/L (135-145); Total Bilirubin 0.3 mg/dL (0.3-1.2); Total Protein 4.6 g/dL (6.2-8.2)
[2023-05-29 11:30] LABS: Glucose,Whole Blood 98 mg/dL (70-110)
--- NOTE | 2023-05-29 14:35 | P.PN ---
Subjective Progress Note Date: 05/29/23 Patient is a 82-year-old female with a past medical history of coronary artery disease status post quadruple bypass in 2009 in [place], history of non- Hodgkin's lymphoma, hypertension, diabetes type 2, hyperlipidemia, history of SC, osteoarthritis, rheumatoid others, hypothyroidism. Patient was brought to the hospital for bronchoscopy with endoscopic ultrasound and DVT aspiration biopsy of the mediastinal lymph node.. Postprocedure while in the recovery room patient went into atrial fibrillation with rapid ventricular rate and heart rate went up to 130s. EKG showed atrial fibrillation with rapid ventricular rate. Cardizem drip was ordered but before starting the infusion patient converted back to sinus rhythm and heart rate came down to 70s. She was admitted to the hospital for further evaluation Patient was recently admitted to the hospital from 04/15/2023 to 04/21/2023. She is admitted due to worsening shortness of breath, requiring BiPAP. Patient was also found to have right-sided pleural effusion status post paracentesis showed reactive mesothelial cells, macrophages and mixed inflammatory cells. No c cytologically malignant cells identified. CT chest on 04/15/2023 showed large right-sided pleural effusion. Repeat CT on 05/07/2023 showed decreasing but residual moderate right pleural effusion, however there is worsening irregular dural thickening/throughout the right hemithorax now measuring up to 1.3 cm thick versus 1.0 cm previously. Focal subpleural soft tissue anteromedial right lower lung measures up to 3.3 cm and appears new. New diffuse subpleural nodularity along the right-sided lung fissures. Correlate for slight interval neoplastic disease present progression, possible lymphoma. Currently patient denies any complaints of chest pain. No worsening shortness of breath. Denies any palpitations. No nausea vomiting abdominal pain or diarrhea. Patient is on Ventimask which is being titrated down to nasal cannula oxygen. No complaints of fever or chills. No diarrhea. No cough or sputum production. Denies any worsening leg swelling recently. 05/25/2023 Patient is sitting on the side of the bed. Awake alert and oriented x 3. Complains of bloating and abdominal and not able to tolerate oral diet. No bowel movement today. Otherwise patient is having atrial fibrillation with RVR last night on and off. Was started on amiodarone drip and added anticoagulation with Eliquis as per cardiology recommendations. Patient was also found to have elevated free T4 level and low TSH level. Levothyroxine dose reduced to 125 mcg daily from 200 mcg which she takes at home. Otherwise patient has been afebrile. Requiring oxygen via nasal cannula. No c omplaints of chest pain. Does have exertional shortness of breath. Laboratory data showed Pulmonary and cardiology is on board. WBC 11.0 hemoglobin 12.7 platelets 151 Sodium 136 potassium 5.4 chloride 107 bicarb is 19 BUN 59 and creatinine 0.78 and blood sugar 165 TSH 0.276 and free T4 3.66. 05/26/2023 Patient is currently sitting on the side of the bed. Awake alert and oriented x 3. Feels weak and lethargic. Currently on oxygen at 4 L via nasal cannula. Otherwise heart rate is better controlled and amiodarone changed to p.o. Patient did have a swallow evaluation. Recommends EGD as per speech pathology. Otherwise patient has been afebrile. Blood pressure is marginal. Laboratory data reviewed. Cardiology and pulmonary is on board. 05/26. Patient seen and examined. Complaining of back pain. Currently on 3 L of oxygen. Gets short of breath on minimal exertion. Complaining of dysphagia 05/27. Patient seen and examined. Continues to be on 4 L of oxygen. 05/28. Patient seen and examined. General surgery are planning EGD today. Breathing has improved. Denies any chest pain. Vital signs stable lab work done showed WBC 9.29, hemoglobin 9.2, platelet count 131, sodium 133, potassium 5.6 REVIEW OF SYSTEMS: CONSTITUTIONAL: No fever, no malaise,. CARDIOVASCULAR: No chest pain, no palpitations, no syncope. PULMONARY: As mentioned above GASTROINTESTINAL: No diarrhea, no nausea, no vomiting, no abdominal pain. NEUROLOGICAL: No headaches, no weakness, PHYSICAL EXAMINATION: GENERAL: The patient is alert and oriented x3, not in any acute distress. Well developed, well nourished. HEENT: Pupils are round and equally reacting to light. EOMI. No scleral icterus. No conjunctival pallor. Normocephalic, atraumatic. No pharyngeal erythema. No thyromegaly. CARDIOVASCULAR: S1 and S2 present. No murmurs, rubs, or gallops. PULMONARY: Coarse breath sound bilaterally, bilateral crackles audible ABDOMEN: Soft, nontender, nondistended, normoactive bowel sounds. No palpable organomegaly. MUSCULOSKELETAL: No joint swelling or deformity. EXTREMITIES: No cyanosis, clubbing, or pedal edema. NEUROLOGICAL: Gross neurological examination did not reveal any focal deficits. SKIN: No rashes. Assessment and plan New onset atrial fibrillation with rapid ventricular rate with heart rate in 130s. While she was in the recovery room. Patient was converted back to sinus rhythm before starting on Cardizem drip. Off amiodarone drip. Changed to p.o. Diffuse subpleural nodularity along the right sided lung fissures correlate for interval neoplastic disease progression. Mediastinal lymphadenopathy. Patient is s/p bronchoscopy and endobronchial ultrasound with needle biopsy on 05/24/2023. Acute hypoxic respiratory failure status post bronchoscopy. Currently on 4 L oxygen via nasal cannula. Recent admission with acute hypoxic respiratory failure status post right thoracentesis. fluid cytology negative for malignancy. Chronic CHF with systolic dysfunction ejection fraction 25 to 30%, mid to distal inferolateral and lateral wall hypokinesis and inferior apical wall hypokinesis. Ischemic cardiomyopathy Dysphagia Coronary artery disease with prior history of quadruple CABG in 2009 Hypertension Diabetes type 2 [id number] Hyperlipidemia Rheumatoid arthritis not on any treatment currently. Hypothyroidism. Patient has elevated free T4 level. Levothyroxine dose reduced to 125 mcg daily. History of non-Hodgkin's lymphoma status postchemotherapy. Currently in remission. Monitor vital signs Monitor CBC Monitor CMP Continue telemetry monitoring Encourage use of incentive spirometer Continue amiodarone twice daily Continue Eliquis Continue oral Lasix Follow-up biopsy of the mediastinal lymph node. Cardiology following Pulmonology following Surgery consulted for dysphagia, planning EGD today Labs and medication were reviewed.. Continue same treatment. Continue with symptomatic treatment. Resume home medication. Monitor labs and vitals. DVT and GI prophylaxis. Further recommendations as per clinical course of the patient Dictation was produced using SHADOW dictation software. please excuse any grammatical, word or spelling errors. Objective - Vital Signs Vital signs: Vital Signs Temp 97.6 F 05/29/23 14:30 Pulse 65 05/29/23 14:30 Resp 17 05/29/23 14:30 BP 102/57 05/29/23 14:30 Pulse Ox 94 L 05/29/23 14:30 FiO2 Intake & Output 05/28/23 05/29/23 05/29/23 18:59 06:59 18:59 Other: # Voids 2 1 1 - Labs CBC & Chem 7: 05/29/23 05:18 05/29/23 05:18 Labs: Abnormal Lab Results - Last 24 Hours (Table) 05/28/23 05/29/23 05/29/23 Range/Units 12:17 05:18 05:18 RBC 3.74 L (4.10-5.20) X 10*6/uL Hgb 11.2 L (12.0-15.0) g/dL Hct 35.6 L (37.2-46.3) % MCHC 31.5 L (32.0-37.0) g/dL RDW 15.3 H (11.5-14.5) % Plt Count 131 L (140-440) X 10*3/uL MPV 12.4 H (9.5-12.2) FL Sodium 131 L 133 L (137-145) mmol/L Potassium 6.0 H 5.6 H (3.5-5.1) mmol/L Carbon Dioxide 18 L (22-30) mmol/L BUN 49 H 44.4 H (7-17) mg/dL BUN/Creatinine Ratio 55.50 H (12.00-20.00) Ratio AST 12 L (13-35) U/L Total Protein 4.6 L (6.2-8.2) g/dL Albumin 2.7 L (3.8-4.9) g/dL Albumin/Globulin Ratio 1.42 L (1.60-3.17) Ratio
[2023-05-29] MEDS ORDERED: PROPOFOL 10 MG/ML 20 ML VIAL IV ONE (14:39)
[2023-05-29] MEDS ORDERED: LIDOCAINE 1% INJ 10MG/ML (20 ML MDV) ONE (14:39)
[2023-05-29] MEDS: SODIUM CHLORIDE 0.9% 500 ML 500 ML IV ONE (14:48)
--- NOTE | 2023-05-29 15:05 | P.PCN ---
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 INDICATIONS: The patient is a 82-year-old female who presents with dysphagia and unintentional weight loss. Due to recent anticoagulant use, upper endoscopy was offered only. Benefits and risks of the procedure were described. Informed consent was obtained. DESCRIPTION: The patient was brought into the endoscopy suite and laid in the left lateral decubitus position. An Olympus gastroscope was passed along the posterior oropharynx down to the distal esophagus where the squamocolumnar junction was encountered at 38 cm from the incisors. The stomach was entered and no bile reflux was found. Additional findings are listed below. The first through third portion of the duodenum was examined and unremarkable. Retroflexion of the scope confirmed Hill grade 3 lower esophageal valve. The squamocolumnar junction demonstrated LA grade C erosive esophagitis. The stomach was desufflated. The patient tolerated the procedure well. FINDINGS: Squamocolumnar junction 38 cm from the incisors. Diaphragmatic hiatus at 40 cm. Hiatal hernia, 2 cm Hill grade 3 lower esophageal valve. LA grade C erosive esophagitis. No active duodenitis. Arteriovenous malformation along gastric cardia, gastric fundus, 4 x 3 mm without active bleeding RECOMMENDATIONS: 1. She has findings of arteriovenous malformations of the stomach with high risk of bleeding with anticoagulants 2. Recommend monitor hemoglobin on anticoagulant 3. Hold blood thinner pending upper endoscopy with dilation, 05/31/2023
[2023-05-29] MEDS: ALBUTEROL NEBULIZED 2.5 MG/3 ML INHALATION ONE (15:11)
[2023-05-29 15:26] LABS: Glucose,Whole Blood 101 mg/dL (70-110)
[2023-05-29] MEDS: DEXTROSE 50% SYRINGE 50 ML IVP ONE (16:27)
[2023-05-29] MEDS: INSULIN REGULAR 100 UNIT/ML VIAL (IV) IV ONE (16:32)
[2023-05-29] MEDS: SODIUM ZIRCONIUM CYCLOSILICATE 10 GM PACKET PO ONE (16:36)
--- NOTE | 2023-05-29 16:42 | P.PN ---
Subjective Progress Note Date: 05/29/23 This is a 82-year-old female patient was suspected to have malignancy. The patient has been having progressive worsening in her health status in general. She has not been eating. She has been extremely weak and debilitated. She was in the hospital approximately a month ago and at that time she came in with acute hypoxic respiratory failure and the patient was initially supported with BiPAP and subsequently was found to have a right-sided pleural effusion. I performed a bedside thoracentesis on this patient and a total of 1.6 L of fluid was aspirated and fluid cytology was negative for malignancy. Echocardiogram showed impaired LV function with an EF of around 25 to 30% and there was some mid to distal anterolateral wall hypokinesis and apical hypokinesis. The patient also had mild to moderate aortic valve calcification without any stenosis. She is subsequent CAT scan of the chest showed a loculated moderate- sized right-sided pleural effusion and irregular pleural wall thickening and the rind throughout the right hemithorax up to 1.3 cm in size and there was also what seems to be right upper lobe mass with extension into the mediastinum in addition to lymphadenopathy within the right hilum measuring around 2.3 cm in size and right suprahilar measuring 1.9 cm in size and in the subcarinal area in addition. There was a mass in the right upper lobe that is pleural-based opacity measuring 4.0 cm in size. Of significance was extensive pleural surface irregularity and nodular structures and this was obviously a manifestation of a neoplastic process and the concern was adenocarcinoma versus mesothelioma versus lymphoma as the patient is known to have a previous history of lymphoma. This was explained to the patient and the family members at length. Family was adamant in establishing a diagnosis. Based on that, the patient was brought in today patient underwent an endobronchial ultrasound under general anesthesia. I did not biopsy the right upper lobe mass. I was going more conservative because of her medical problems and I ended up doing a transbronchial needle aspirate of station 10 R and station 7 lymph nodes. Note that following her procedure, the patient was extubated and she got transferred to recovery where she went into A- fib RVR. I ordered Cardizem drip and this was not started and by the time she was about to start the Cardizem she converted to normal sinus rhythm. I discussed the findings with the family. The family told me that the patient's condition was progressively getting worse and she was not eating and they were very much concerned about her health in general and they wanted to keep her in the hospital. As such, the patient will be hospitalized to telemetry unit. She is known to have a left atrial ejection fraction of 25%. She is also known to have history of rheumatoid arthritis and she is currently off Remicade. She has diabetes mellitus type 2, coronary artery disease, hyperlipidemia, hyperlipidemia, remote history of non-Hodgkin's lymphoma. On today's evaluation of 05/25/2023, the patient is stable on 4L of oxygen by nasal cannula. Her cardiac rhythm is back to sinus. She is started on anticoagulation and she is currently on Eliquis. She is also on Lasix 20 mg p.o. daily. She is on Coreg 6.25 mg twice a day. Denies having any new complaints. The white cell count 11 with a hemoglobin 12.7 and a platelet count of 151. Sodium is at 136, BUN is at 59 with a creatinine of 0.7 and a potassium level is at 5.4. Thyroid function test shows a TSH free of 3.66 with a free T4 of 0.276. The patient remains on levothyroxine at 125 mcg p.o. daily. The dose of the thyroid has been modified and the patient has been just from 200 mcg on 225. On today's evaluation of 05/26/2023, the patient is resting comfortably in bed. No specific complaints. She is lethargic and weak. She remains on 40s of oxygen by nasal cannula with a pulse ox of 94%. Results of the biopsy are still pending for now. The patient has no significant complaints. The patient has chest wall pain on the right. This is an ongoing chronic problem dated 2 abnormalities that were described earlier. The patient is currently in normal sinus mechanism. The patient's thyroid dose has been i adjusted by the medical group. [employer] also on the case. On today's evaluation of 05/27/2023, the patient is resting comfortably in bed. No specific complaints. Awaiting the results of the biopsy. WBC count is at 10.5 and hemoglobin 12 .7 and a platelet count of 135. The rest of the blood work shows a BUN of 62 with a creatinine of 1.09 and sodium levels at 131 with a potassium level of 5.8. The patient's is resting comfortably in bed. No other issues for now. She is complaining of pain along the right lateral chest area. She remains on anticoagulation with Eliquis 5 mg p.o. twice a day. She remains on her routine outpatient medications. Surgical consultation for dysphagia was done. Patient will be given an upper GI esophagogram and further workup regarding this dysphagia will be done depending on the results of the endobronchial ultrasound biopsies from the mediastinum. Highly suspicious for malignancy as mentioned. On today's evaluation of 05/28/2023, the patient resting comfortably in bed. No change in her condition. Awaiting final pathology from the biopsies and she should this should be available by Monday. Meanwhile, the patient has no specific complaints. She remains on 4 L with a pulse ox of 95%. Resting comfortably in bed. Pain remains unchanged. The patient is seen today May 29, 2023 in follow-up on the regular medical floor. She was initially here for an elective lung biopsy on May 24, 2023 but developed atrial fibrillation with a rapid ventricular response in the recovery room. She has been initiated on amiodarone. Anticoagulated with Eliquis. Pathology is still pending. She is maintaining O2 saturations in the 90s on 4 L/min per nasal cannula. She did undergo EGD today due to her dysphagia, unintentional weight loss and anticoagulant use. 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 White count 9.2. Hemoglobin 11.2. Platelets 131. Sodium 133. Potassium 5.6. Bicarb 24. BUN 44. Creatinine 0.8. Glucose 90. Objective - Vital Signs Vital signs: Vital Signs Temp 97.0 F L 05/29/23 15:10 Pulse 69 05/29/23 16:10 Resp 18 05/29/23 16:10 BP 101/45 05/29/23 16:10 Pulse Ox 94 L 05/29/23 16:10 FiO2 Intake & Output 05/28/23 05/29/23 05/29/23 18:59 06:59 18:59 Intake Total 100 Balance 100 Intake: IV 100 Other: # Voids 2 1 1 - Exam GENERAL EXAM: Alert, pleasant 82-year-old female, on 4 L nasal cannula, comfortable in no apparent distress. HEAD: Normocephalic. EYES: Normal reaction of pupils, equal size. NOSE: Clear with pink turbinates. THROAT: No erythema or exudates. NECK: No masses, no JVD. CHEST: No chest wall deformity. LUNGS: Equal air entry with few scattered rhonchi. CVS: S1 and S2 normal with no audible murmur, regular rhythm. ABDOMEN: No hepatosplenomegaly, normal bowel sounds, no guarding or rigidity. SPINE: No scoliosis or deformity SKIN: No rashes CENTRAL NERVOUS SYSTEM: No focal deficits, tone is normal in all 4 extremities. EXTREMITIES: There is no peripheral edema. No clubbing, no cyanosis. Peripheral pulses are intact. - Labs CBC & Chem 7: 05/29/23 05:18 05/29/23 05:18 Labs: Abnormal Lab Results - Last 24 Hours (Table) 05/29/23 05/29/23 Range/Units 05:18 05:18 RBC 3.74 L (4.10-5.20) X 10*6/uL Hgb 11.2 L (12.0-15.0) g/dL Hct 35.6 L (37.2-46.3) % MCHC 31.5 L (32.0-37.0) g/dL RDW 15.3 H (11.5-14.5) % Plt Count 131 L (140-440) X 10*3/uL MPV 12.4 H (9.5-12.2) FL Sodium 133 L (135-145) mmol/L Potassium 5.6 H (3.5-5.5) mmol/L BUN 44.4 H (9.0-27.0) mg/dL BUN/Creatinine Ratio 55.50 H (12.00-20.00) Ratio AST 12 L (13-35) U/L Total Protein 4.6 L (6.2-8.2) g/dL Albumin 2.7 L (3.8-4.9) g/dL Albumin/Globulin Ratio 1.42 L (1.60-3.17) Ratio Assessment and Plan Assessment: New onset atrial fibrillation with RVR, converted to normal sinus rhythm and the patient Is currently hemodynamically stable. Patient is currently on Cordarone and Coreg. Anticoagulation with Eliquis. Thyroid levels were elevated and the free T4 was high and accordingly the Synthroid dose was dropped down to 125 mcg on a daily basis. The patient remains in normal sinus mechanism for now Acute hypoxic respiratory failure post bronchoscopy May 24 2023 and the patient is currently on 4 L of oxygen by nasal cannula the flow to be titrated to maintain saturation above 90%. Chest x-ray findings are stable and is consistent with a right upper lobe mass, pleural thickening and loculated right- sided pleural effusion She did undergo EGD today May 29, 2023 due to her dysphagia, unintentional weight loss and anticoagulant use. 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 Right upper lobe masslike consolidation measuring 4.0 cm in addition to extensive mediastinal lymphadenopathy involving the paratracheal, right hilar and suprahilar area and the patient has significant pleural surface irregularities and multiloculated right-sided pleural effusions. Possibilities include adenocarcinoma of the lung, mesothelioma, and lymphoma. Note that the pleural surface is quite thickened and is reaching approximately 1.3 cm with significant irregularities and previous thoracentesis yielded no final pathology diagnosis. Nevertheless, the findings are highly suspicious for malignancy. Patient and the family was made aware. She has a poor baseline performance and functional status. She may not be a candidate for any treatment if the diagnosis of malignancy established. Nevertheless, patient and family are highly inte rested in establishing a final diagnosis and for that reason I offered the patient a relatively less invasive procedure which would include an endobronchial ultrasound and biopsy of the mediastinal lymph nodes. Mediastinal lymphadenopathy detail discussed above, awaiting final pathology postbiopsy Chest wall pain with an irregular pleural surface border with multiple nodularities and secondary pain. This is likely malignant process. Rule out mesothelioma versus adenocarcinoma versus lymphoma. Offered nonsteroidal anti- inflammatory medications for pain control. Pleural effusion with previous thoracentesis removed approximately 1.6 to 2 L of pleural fluid from the right lung. The fluid was exudative. The fluid cytology came back negative for malignancy Coronary arteriosclerosis - She is post CABG Chronic systolic heart failure diagnosed by an echocardiogram that was done and the patient has ejection fraction of 25% and she has some edema in lower extremities and she is seeing cardiology and she is currently on diuretics and she is taking Lasix at a dose of 40 mg once a day Non-Hodgkin's lymphoma (clinical) She is in remission and she was diagnosed in 2013 and she has completed the chemotherapy . This involved the jaw and the head and neck Type 2 diabetes mellitus Maintained on Metformin and glyburide Rheumatoid arthritis On no treatment and she is off Ramicade Medical debility along with weight loss and diminished appetite and failure to thrive Plan: The patient was seen and evaluated Labs and medications reviewed Pathology is pending Continued on amiodarone, Coreg Anticoagulated with Eliquis Plan is for home with home care at discharge We will continue to follow I have personally seen and examined the patient, performed the documentation and the assessment and plan as written. Number of minutes spent on the visit: 10.
[2023-05-29 16:53] LABS: Glucose,Whole Blood 156 mg/dL (70-110)
[2023-05-29 20:10] LABS: Glucose,Whole Blood 80 mg/dL (70-110)
[2023-05-30 06:02] LABS: Glucose,Whole Blood 81 mg/dL (70-110)
[2023-05-30 11:44] LABS: ALT 10 U/L (8-44); AST 15 U/L (13-35); Albumin 2.8 g/dL (3.8-4.9); Alkaline Phosphatase 48 U/L (41-126); BUN/Creat Ratio 51.78 Ratio (12.00-20.00); Blood Urea Nitrogen 46.6 mg/dL (9.0-27.0); Calcium 10.4 mg/dL (8.7-10.3); Carbon Dioxide 25.1 mmol/L (21.6-31.8); Chloride 102 mmol/L (96-109); Glucose 79 mg/dL (70-110); Sodium 136 mmol/L (135-145); Total Bilirubin 0.4 mg/dL (0.3-1.2); Total Protein 4.8 g/dL (6.2-8.2)
[2023-05-30 11:45] LABS: Glucose,Whole Blood 91 mg/dL (70-110)
[2023-05-30] MEDS: LACTATED RINGERS 1,000 ML IV SCH (11:45)
[2023-05-30 12:18] LABS: HCT 38.3 % (37.2-46.3); MCH 30.4 pg (27.0-32.0); MCHC 31.3 g/dL (32.0-37.0); Mean Platelet Volume 12.7 FL (9.5-12.2); NRBC Per 100 WBC 0 X 10*3/uL (0.00-0.01); Platelet Count 139 X 10*3/uL (140-440); RBC 3.95 X 10*6/uL (4.10-5.20); RDW 15.5 % (11.5-14.5); WBC 9.22 X 10*3/uL (4.50-10.00)
--- NOTE | 2023-05-30 13:34 | P.PN ---
Subjective Progress Note Date: 05/30/23 Patient is a 82-year-old female with a past medical history of coronary artery disease status post quadruple bypass in 2009 in [place], history of non- Hodgkin's lymphoma, hypertension, diabetes type 2, hyperlipidemia, history of NM, osteoarthritis, rheumatoid others, hypothyroidism. Patient was brought to the hospital for bronchoscopy with endoscopic ultrasound and DVT aspiration biopsy of the mediastinal lymph node.. Postprocedure while in the recovery room patient went into atrial fibrillation with rapid ventricular rate and heart rate went up to 130s. EKG showed atrial fibrillation with rapid ventricular rate. Cardizem drip was ordered but before starting the infusion patient converted back to sinus rhythm and heart rate came down to 70s. She was admitted to the hospital for further evaluation Patient was recently admitted to the hospital from 04/15/2023 to 04/21/2023. She is admitted due to worsening shortness of breath, requiring BiPAP. Patient was also found to have right-sided pleural effusion status post paracentesis showed reactive mesothelial cells, macrophages and mixed inflammatory cells. No c cytologically malignant cells identified. CT chest on 04/15/2023 showed large right-sided pleural effusion. Repeat CT on 05/07/2023 showed decreasing but residual moderate right pleural effusion, however there is worsening irregular dural thickening/throughout the right hemithorax now measuring up to 1.3 cm thick versus 1.0 cm previously. Focal subpleural soft tissue anteromedial right lower lung measures up to 3.3 cm and appears new. New diffuse subpleural nodularity along the right-sided lung fissures. Correlate for slight interval neoplastic disease present progression, possible lymphoma. Currently patient denies any complaints of chest pain. No worsening shortness of breath. Denies any palpitations. No nausea vomiting abdominal pain or diarrhea. Patient is on Ventimask which is being titrated down to nasal cannula oxygen. No complaints of fever or chills. No diarrhea. No cough or sputum production. Denies any worsening leg swelling recently. 05/25/2023 Patient is sitting on the side of the bed. Awake alert and oriented x 3. Complains of bloating and abdominal and not able to tolerate oral diet. No bowel movement today. Otherwise patient is having atrial fibrillation with RVR last night on and off. Was started on amiodarone drip and added anticoagulation with Eliquis as per cardiology recommendations. Patient was also found to have elevated free T4 level and low TSH level. Levothyroxine dose reduced to 125 mcg daily from 200 mcg which she takes at home. Otherwise patient has been afebrile. Requiring oxygen via nasal cannula. No c omplaints of chest pain. Does have exertional shortness of breath. Laboratory data showed Pulmonary and cardiology is on board. WBC 11.0 hemoglobin 12.7 platelets 151 Sodium 136 potassium 5.4 chloride 107 bicarb is 19 BUN 59 and creatinine 0.78 and blood sugar 165 TSH 0.276 and free T4 3.66. 05/26/2023 Patient is currently sitting on the side of the bed. Awake alert and oriented x 3. Feels weak and lethargic. Currently on oxygen at 4 L via nasal cannula. Otherwise heart rate is better controlled and amiodarone changed to p.o. Patient did have a swallow evaluation. Recommends EGD as per speech pathology. Otherwise patient has been afebrile. Blood pressure is marginal. Laboratory data reviewed. Cardiology and pulmonary is on board. 05/26. Patient seen and examined. Complaining of back pain. Currently on 3 L of oxygen. Gets short of breath on minimal exertion. Complaining of dysphagia 05/27. Patient seen and examined. Continues to be on 4 L of oxygen. 05/28. Patient seen and examined. General surgery are planning EGD today. Breathing has improved. Denies any chest pain. Vital signs stable lab work done showed WBC 9.29, hemoglobin 9.2, platelet count 131, sodium 133, potassium 5.6 05/29. Patient seen and examined. Patient had EGD done on 05/28 which showed AV malformation of the stomach, surgery recommended holding anticoagulation till they do EGD dilatation scheduled for 05/30 REVIEW OF SYSTEMS: CONSTITUTIONAL: No fever, no malaise,. CARDIOVASCULAR: No chest pain, no palpitations, no syncope. PULMONARY: As mentioned above GASTROINTESTINAL: No diarrhea, no nausea, no vomiting, no abdominal pain. NEUROLOGICAL: No headaches, no weakness, PHYSICAL EXAMINATION: GENERAL: The patient is alert and oriented x3, not in any acute distress. Well developed, well nourished. HEENT: Pupils are round and equally reacting to light. EOMI. No scleral icterus. No conjunctival pallor. Normocephalic, atraumatic. No pharyngeal erythema. No thyromegaly. CARDIOVASCULAR: S1 and S2 present. No murmurs, rubs, or gallops. PULMONARY: Coarse breath sound bilaterally, bilateral crackles audible ABDOMEN: Soft, nontender, nondistended, normoactive bowel sounds. No palpable organomegaly. MUSCULOSKELETAL: No joint swelling or deformity. EXTREMITIES: No cyanosis, clubbing, or pedal edema. NEUROLOGICAL: Gross neurological examination did not reveal any focal deficits. SKIN: No rashes. Assessment and plan New onset atrial fibrillation with rapid ventricular rate with heart rate in 130s. While she was in the recovery room. Patient was converted back to sinus rhythm before starting on Cardizem drip. Off amiodarone drip. Changed to p.o. Diffuse subpleural nodularity along the right sided lung fissures correlate for interval neoplastic disease progression. Mediastinal lymphadenopathy. Patient is s/p bronchoscopy and endobronchial ultrasound with needle biopsy on 05/24/2023. Acute hypoxic respiratory failure status post bronchoscopy. Currently on 4 L oxygen via nasal cannula. Recent admission with acute hypoxic respiratory failure status post right thoracentesis. fluid cytology negative for malignancy. Chronic CHF with systolic dysfunction ejection fraction 25 to 30%, mid to distal inferolateral and lateral wall hypokinesis and inferior apical wall hypokinesis. Ischemic cardiomyopathy Dysphagia Coronary artery disease with prior history of quadruple CABG in 2009 Hypertension Diabetes type 2 [id number] Hyperlipidemia Rheumatoid arthritis not on any treatment currently. Hypothyroidism. Patient has elevated free T4 level. Levothyroxine dose reduced to 125 mcg daily. History of non-Hodgkin's lymphoma status postchemotherapy. Currently in remission. Monitor vital signs Monitor CBC Monitor CMP Continue telemetry monitoring Encourage use of incentive spirometer Continue amiodarone twice daily Continue Eliquis Continue oral Lasix Follow-up biopsy of the mediastinal lymph node. Cardiology following Pulmonology following EGD done on 05/28 which showed AV malformation of the stomach, surgery recommend ed holding anticoagulation till they do EGD dilatation scheduled for 05/30 Labs and medication were reviewed.. Continue same treatment. Continue with symptomatic treatment. Resume home medication. Monitor labs and vitals. DVT and GI prophylaxis. Further recommendations as per clinical course of the patient Dictation was produced using [employer] dictation software. please excuse any grammatical, word or spelling errors. Objective - Vital Signs Vital signs: Vital Signs Temp 98.2 F 05/30/23 07:17 Pulse 64 05/30/23 07:17 Resp 19 05/30/23 07:17 BP 102/56 05/30/23 07:17 Pulse Ox 91 L 05/30/23 07:17 FiO2 Intake & Output 05/29/23 05/30/23 05/30/23 18:59 06:59 18:59 Intake Total 100 240 Balance 100 240 Intake: IV 100 Oral 240 Other: Voiding Method Toilet Toilet # Voids 1 1 1 - Labs CBC & Chem 7: 05/30/23 05:53 05/30/23 05:53 Labs: Abnormal Lab Results - Last 24 Hours (Table) 05/29/23 05/29/23 05/30/23 Range/Units 16:52 18:43 05:53 RBC 3.95 L (4.10-5.20) X 10*6/uL MCHC 31.3 L (32.0-37.0) g/dL RDW 15.5 H (11.5-14.5) % Plt Count 139 L (140-440) X 10*3/uL MPV 12.7 H (9.5-12.2) FL Potassium 5.3 H (3.5-5.1) mmol/L BUN (9.0-27.0) mg/dL BUN/Creatinine Ratio (12.00-20.00) Ratio POC Glucose (mg/dL) 156 H (70-110) mg/dL Calcium (8.7-10.3) mg/dL Total Protein (6.2-8.2) g/dL Albumin (3.8-4.9) g/dL Albumin/Globulin Ratio (1.60-3.17) Ratio 05/30/23 Range/Units 05:53 RBC (4.10-5.20) X 10*6/uL MCHC (32.0-37.0) g/dL RDW (11.5-14.5) % Plt Count (140-440) X 10*3/uL MPV (9.5-12.2) FL Potassium 6.0 H (3.5-5.1) mmol/L BUN 46.6 H (9.0-27.0) mg/dL BUN/Creatinine Ratio 51.78 H (12.00-20.00) Ratio POC Glucose (mg/dL) (70-110) mg/dL Calcium 10.4 H (8.7-10.3) mg/dL Total Protein 4.8 L (6.2-8.2) g/dL Albumin 2.8 L (3.8-4.9) g/dL Albumin/Globulin Ratio 1.40 L (1.60-3.17) Ratio
--- NOTE | 2023-05-30 15:06 | P.PN ---
Subjective Progress Note Date: 05/30/23 Principal diagnosis: Atrial fibrillation with RVR This is a 82-year-old female patient was suspected to have malignancy. The patient has been having progressive worsening in her health status in general. She has not been eating. She has been extremely weak and debilitated. She was in the hospital approximately a month ago and at that time she came in with acute hypoxic respiratory failure and the patient was initially supported with BiPAP and subsequently was found to have a right-sided pleural effusion. I performed a bedside thoracentesis on this patient and a total of 1.6 L of fluid was aspirated and fluid cytology was negative for malignancy. Echocardiogram showed impaired LV function with an EF of around 25 to 30% and there was some mid to distal anterolateral wall hypokinesis and apical hypokinesis. The patient also had mild to moderate aortic valve calcification without any stenosis. She is subsequent CAT scan of the chest showed a loculated moderate- sized right-sided pleural effusion and irregular pleural wall thickening and the rind throughout the right hemithorax up to 1.3 cm in size and there was also what seems to be right upper lobe mass with extension into the mediastinum in addition to lymphadenopathy within the right hilum measuring around 2.3 cm in size and right suprahilar measuring 1.9 cm in size and in the subcarinal area in addition. There was a mass in the right upper lobe that is pleural-based opacity measuring 4.0 cm in size. Of significance was extensive pleural surface irregularity and nodular structures and this was obviously a manifestation of a neoplastic process and the concern was adenocarcinoma versus mesothelioma versus lymphoma as the patient is known to have a previous history of lymphoma. This was explained to the patient and the family members at length. Family was adamant in establishing a diagnosis. Based on that, the patient was brought in today patient underwent an endobronchial ultrasound under general anesthesia. I did not biopsy the right upper lobe mass. I was going more conservative because of her medical problems and I ended up doing a transbronchial needle aspirate of station 10 R and station 7 lymph nodes. Note that following her procedure, the patient was extubated and she got transferred to recovery where she went into A- fib RVR. I ordered Cardizem drip and this was not started and by the time she was about to start the Cardizem she converted to normal sinus rhythm. I discussed the findings with the family. The family told me that the patient's condition was progressively getting worse and she was not eating and they were very much concerned about her health in general and they wanted to keep her in the hospital. As such, the patient will be hospitalized to telemetry unit. She is known to have a left atrial ejection fraction of 25%. She is also known to have history of rheumatoid arthritis and she is currently off Remicade. She has diabetes mellitus type 2, coronary artery disease, hyperlipidemia, hyperlipidemia, remote history of non-Hodgkin's lymphoma. On today's evaluation of 05/25/2023, the patient is stable on 4L of oxygen by nasal cannula. Her cardiac rhythm is back to sinus. She is started on anticoagulation and she is currently on Eliquis. She is also on Lasix 20 mg p.o. daily. She is on Coreg 6.25 mg twice a day. Denies having any new complaints. The white cell count 11 with a hemoglobin 12.7 and a platelet count of 151. Sodium is at 136, BUN is at 59 with a creatinine of 0.7 and a potassium level is at 5.4. Thyroid function test shows a TSH free of 3.66 with a free T4 of 0.276. The patient remains on levothyroxine at 125 mcg p.o. daily. The dose of the thyroid has been modified and the patient has been just from 200 mcg on 225. On today's evaluation of 05/26/2023, the patient is resting comfortably in bed. No specific complaints. She is lethargic and weak. She remains on 40s of oxygen by nasal cannula with a pulse ox of 94%. Results of the biopsy are still pending for now. The patient has no significant complaints. The patient has chest wall pain on the right. This is an ongoing chronic problem dated 2 abnormalities that were described earlier. The patient is currently in normal sinus mechanism. The patient's thyroid dose has been i adjusted by the medical group. Order Management Specialist also on the case. On today's evaluation of 05/27/2023, the patient is resting comfortably in bed. No specific complaints. Awaiting the results of the biopsy. WBC count is at 10.5 and hemoglobin 12 .7 and a platelet count of 135. The rest of the blood work shows a BUN of 62 with a creatinine of 1.09 and sodium levels at 131 with a potassium level of 5.8. The patient's is resting comfortably in bed. No other issues for now. She is complaining of pain along the right lateral chest area. She remains on anticoagulation with Eliquis 5 mg p.o. twice a day. She remains on her routine outpatient medications. Surgical consultation for dysphagia was done. Patient will be given an upper GI esophagogram and further workup regarding this dysphagia will be done depending on the results of the endobronchial ultrasound biopsies from the mediastinum. Highly suspicious for malignancy as mentioned. On today's evaluation of 05/28/2023, the patient resting comfortably in bed. No change in her condition. Awaiting final pathology from the biopsies and she should this should be available by Monday. Meanwhile, the patient has no specific complaints. She remains on 4 L with a pulse ox of 95%. Resting comfortably in bed. Pain remains unchanged. The patient is seen today May 29, 2023 in follow-up on the regular medical floor. She was initially here for an elective lung biopsy on May 24, 2023 but developed atrial fibrillation with a rapid ventricular response in the recovery room. She has been initiated on amiodarone. Anticoagulated with Eliquis. Pathology is still pending. She is maintaining O2 saturations in the 90s on 4 L/min per nasal cannula. She did undergo EGD today due to her dysphagia, unintentional weight loss and anticoagulant use. 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 White count 9.2. Hemoglobin 11.2. Platelets 131. Sodium 133. Potassium 5.6. Bicarb 24. BUN 44. Creatinine 0.8. Glucose 90. Patient was reevaluated today on 05/30/2023, pulmonary dos santos the patient is doing great, however she has GI issues being addressed by general surgery on the case. EGD on 05/28 showed AV malformation of the stomach surgery is still recommending holding anticoagulation until they do EGD dilatation which is scheduled for 05/30. Pulmonary dos santos no cough no wheezing no shortness of breath. And her atrial fibrillation seems to be relatively under control patient remains on 4 L nasal cannula with O2 sats of 96%, blood pressure 107/64, and A-fib seems to be controlled Objective - Vital Signs Vital signs: Vital Signs Temp 97.6 F 05/30/23 14:10 Pulse 75 05/30/23 14:10 Resp 19 05/30/23 14:10 BP 107/64 05/30/23 14:10 Pulse Ox 96 05/30/23 14:10 FiO2 Intake & Output 05/29/23 05/30/23 05/30/23 18:59 06:59 18:59 Intake Total 100 240 Balance 100 240 Weight 79.3 kg Intake: IV 100 Oral 240 Other: Voiding Method Toilet Toilet # Voids 1 1 1 - Exam GENERAL: Revealed 82-year-old female in no distress HEENT: PERRLA, EOMI, anicteric, no neck masses no JVD. CARDIOVASCULAR: Regular rhythm, normal S1 and S2 present. No murmurs, rubs, or gallops. PULMONARY: Diminished breath sound bilaterally no crackles rhonchi or wheezes ABDOMEN: Soft, nontender, nondistended, normoactive bowel sounds. No palpable organomegaly. MUSCULOSKELETAL: No joint swelling or deformity. EXTREMITIES: No cyanosis, clubbing, or pedal edema. NEUROLOGICAL: Alert and oriented x 3 no gross focal deficit Psychiatric: Normal mood affect and no mental status examination SKIN: No rashes. - Labs CBC & Chem 7: 05/30/23 05:53 05/30/23 05:53 Labs: Abnormal Lab Results - Last 24 Hours (Table) 05/29/23 05/29/23 05/30/23 Range/Units 16:52 18:43 05:53 RBC 3.95 L (4.10-5.20) X 10*6/uL MCHC 31.3 L (32.0-37.0) g/dL RDW 15.5 H (11.5-14.5) % Plt Count 139 L (140-440) X 10*3/uL MPV 12.7 H (9.5-12.2) FL Potassium 5.3 H (3.5-5.1) mmol/L BUN (9.0-27.0) mg/dL BUN/Creatinine Ratio (12.00-20.00) Ratio POC Glucose (mg/dL) 156 H (70-110) mg/dL Calcium (8.7-10.3) mg/dL Total Protein (6.2-8.2) g/dL Albumin (3.8-4.9) g/dL Albumin/Globulin Ratio (1.60-3.17) Ratio 05/29/ Range/Units 05:53 RBC (4.10-5.20) X 10*6/uL MCHC (32.0-37.0) g/dL RDW (11.5-14.5) % Plt Count (140-440) X 10*3/uL MPV (9.5-12.2) FL Potassium 6.0 H (3.5-5.1) mmol/L BUN 46.6 H (9.0-27.0) mg/dL BUN/Creatinine Ratio 51.78 H (12.00-20.00) Ratio POC Glucose (mg/dL) (70-110) mg/dL Calcium 10.4 H (8.7-10.3) mg/dL Total Protein 4.8 L (6.2-8.2) g/dL Albumin 2.8 L (3.8-4.9) g/dL Albumin/Globulin Ratio 1.40 L (1.60-3.17) Ratio Assessment and Plan Assessment: Impression: New onset atrial fibrillation with RVR, converted to normal sinus rhythm and the patient Is currently hemodynamically stable. Acute hypoxic respiratory failure post bronchoscopy May 24 2023 and the patient is currently on 4 L of oxygen by nasal cannula the flow to be titrated to maintain saturation above 90%. Chest x-ray findings are stable and is consistent with a right upper lobe mass, pleural thickening and loculated right- sided pleural effusion Status post EGD on 05/28, repeat EGD and possible esophageal dilatation scheduled for 05/30 Right upper lobe masslike consolidation measuring 4.0 cm in addition to extensive mediastinal lymphadenopathy involving the paratracheal, right hilar and suprahilar area and the patient has significant pleural surface irregularities and multiloculated right-sided pleural effusions. Possibilities include adenocarcinoma of the lung, mesothelioma, and lymphoma. Note that the pleural surface is quite thickened and is reaching approximately 1.3 cm with significant irregularities and previous thoracentesis yielded no final pathology diagnosis. Nevertheless, the findings are highly suspicious for malignancy. Patient and the family was made aware. She has a poor baseline performance and functional status. She may not be a candidate for any treatment if the diagnosis of malignancy established. Nevertheless, patient and family are highly interested in establishing a final diagnosis and for that reason I offered the patient a relatively less invasive procedure which would include an endobronchial ultrasound and biopsy of the mediastinal lymph nodes. Mediastinal lymphadenopathy detail discussed above, awaiting final pathology postbiopsy Chest wall pain with an irregular pleural surface border with multiple nodularities and secondary pain. This is likely malignant process. Rule out mesothelioma versus adenocarcinoma versus lymphoma. Offered nonsteroidal anti- inflammatory medications for pain control. Pleural effusion with previous thoracentesis removed approximately 1.6 to 2 L of pleural fluid from the right lung. The fluid was exudative. The fluid cytology came back negative for malignancy Coronary arteriosclerosis - She is post CABG Chronic systolic heart failure diagnosed by an echocardiogram that was done and the patient has ejection fraction of 25% and she has some edema in lower extremities and she is seeing cardiology and she is currently on diuretics and she is taking Lasix at a dose of 40 mg once a day Non-Hodgkin's lymphoma (clinical) She is in remission and she was diagnosed in 2013 and she has completed the chemotherapy . This involved the jaw and the head and neck Type 2 diabetes mellitus Maintained on Metformin and glyburide Rheumatoid arthritis On no treatment and she is off Ramicade Medical debility along with weight loss and diminished appetite and failure to thrive Recommendation: Continue present supportive care measures Continue amiodarone Continue to hold anticoagulation therapy until EGD is done on 05/30 then restart Eliquis Will clear the patient for discharge once she is cleared by other consultants on the case including cardiology and general surgery. Will continue to follow. Patient will need outpatient follow-up with Dr. Parsons for follow-up on her bronchoscopic findings and biopsies patient already had a flexible bronchoscopy endoscopic ultrasound biopsy and transbronchial needle aspiration of station 10 R and station 7 lymph node Time with Patient: Less than 30
--- NOTE | 2023-05-30 15:25 | P.PN ---
Subjective Progress Note Date: 05/30/23 CHIEF COMPLAINT: Dysphagia HISTORY OF PRESENT ILLNESS: Patient status post EGD with hiatal hernia, erosive esophagitis and AVM of the stomach no active bleeding reported. Patient denies any abdominal pain. Denies any nausea or vomiting. She did have some heartburn this morning after eating a sausage. Afebrile. WBC 9.2 hemoglobin 12 potassium is 6.0 PHYSICAL EXAM: VITAL SIGNS: Reviewed GENERAL: Well-developed in no acute distress. HEENT: No sclera icterus. Extraocular movements grossly intact. Moist buccal mucosa. Head is atraumatic, normocephalic. Hears conversational speech. No nasal dr ainage. NECK: Supple without lymphadenopathy. CHEST: Non-labored respirations and equal bilateral excursions. CARDIOVASCULAR: Palpable 2+ radial pulses. ABDOMEN: Soft. Nondistended. Nontender. MUSCULOSKELETAL: No clubbing or cyanosis. NEUROLOGIC: No focal or lateralizing signs. Cranial nerves II through XII grossly intact. PSYCH: Appropriate affect. Alert and oriented to person, place and time. SKIN: Well perfused. Good skin turgor. ASSESSMENT: 1. Dysphagia 2. Unintentional weight loss 3. Diaphragmatic hiatal hernia 4. Presbyesophagus 5. Gastroesophageal reflux disease 6. Gastritis 7. 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 Kumar -Continue to keep Eliquis on hold -N.p.o. after midnight -Continue PPI -Hyperkalemia management per medicine service. Case discussed with medicine nurse practitioner Physician Water Resources Project Manager note has been reviewed by physician. Signing provider agrees with the documented findings, assessment, and plan of care. Objective - Vital Signs Vital signs: Vital Signs Temp 97.6 F 05/30/23 14:10 Pulse 75 05/30/23 14:10 Resp 19 05/30/23 14:10 BP 107/64 05/30/23 14:10 Pulse Ox 96 05/30/23 14:10 FiO2 Intake & Output 05/29/23 05/30/23 05/30/23 18:59 06:59 18:59 Intake Total 100 240 Balance 100 240 Weight 79.3 kg Intake: IV 100 Oral 240 Other: Voiding Method Toilet Toilet # Voids 1 1 1 - Labs CBC & Chem 7: 05/30/23 05:53 05/30/23 05:53 Labs: Abnormal Lab Results - Last 24 Hours (Table) 05/29/23 05/29/23 05/30/23 Range/Units 16:52 18:43 05:53 RBC 3.95 L (4.10-5.20) X 10*6/uL MCHC 31.3 L (32.0-37.0) g/dL RDW 15.5 H (11.5-14.5) % Plt Count 139 L (140-440) X 10*3/uL MPV 12.7 H (9.5-12.2) FL Potassium 5.3 H (3.5-5.1) mmol/L BUN (9.0-27.0) mg/dL BUN/Creatinine Ratio (12.00-20.00) Ratio POC Glucose (mg/dL) 156 H (70-110) mg/dL Calcium (8.7-10.3) mg/dL Total Protein (6.2-8.2) g/dL Albumin (3.8-4.9) g/dL Albumin/Globulin Ratio (1.60-3.17) Ratio 05/30/23 Range/Units 05:53 RBC (4.10-5.20) X 10*6/uL MCHC (32.0-37.0) g/dL RDW (11.5-14.5) % Plt Count (140-440) X 10*3/uL MPV (9.5-12.2) FL Potassium 6.0 H (3.5-5.1) mmol/L BUN 46.6 H (9.0-27.0) mg/dL BUN/Creatinine Ratio 51.78 H (12.00-20.00) Ratio POC Glucose (mg/dL) (70-110) mg/dL Calcium 10.4 H (8.7-10.3) mg/dL Total Protein 4.8 L (6.2-8.2) g/dL Albumin 2.8 L (3.8-4.9) g/dL Albumin/Globulin Ratio 1.40 L (1.60-3.17) Ratio
[2023-05-30] MEDS: SODIUM ZIRCONIUM CYCLOSILICATE 10 GM PACKET PO ONE (16:04)
[2023-05-30] MEDS: INSULIN REGULAR 100 UNIT/ML VIAL (IV) IV ONE (16:04)
[2023-05-30] MEDS: DEXTROSE 50% SYRINGE 50 ML IVP STA (16:04)
[2023-05-30 17:29] LABS: Glucose,Whole Blood 134 mg/dL (70-110)
[2023-05-30] MEDS: CALCIUM GLUCONATE IN NACL 1 GM in SALINE 1 100ML.BAG IVPB ONE (17:31)
[2023-05-30 20:20] LABS: Glucose,Whole Blood 94 mg/dL (70-110)
[2023-05-31 06:13] LABS: Glucose,Whole Blood 91 mg/dL (70-110)
[2023-05-31] MEDS ORDERED: ETOMIDATE 2 MG/ML 10 ML VIAL ONE (08:40)
[2023-05-31] MEDS ORDERED: LIDOCAINE 1% INJ 10MG/ML (20 ML MDV) ONE (08:40)
[2023-05-31] MEDS: IV FLUID CONTINUATION 1,000 ML IV ONE (08:42)
[2023-05-31] MEDS: FUROSEMIDE 10 MG/ML 4 ML VIAL IVP ONE (09:16)
[2023-05-31 09:37] LABS: African American GFR (CKD) 82 (>60 ml/min/1.73 sqM); Anion Gap 6 mmol/L; Blood Urea Nitrogen 40 mg/dL (7-17); Calcium 10.6 mg/dL (8.4-10.2); Carbon Dioxide 22 mmol/L (22-30); Chloride 104 mmol/L (98-107); Glucose 108 mg/dL (74-99); Non-African American GFR(CKD) 71 (>60 ml/min/1.73 sqM); Potassium 5.5 mmol/L (3.5-5.1); Sodium 132 mmol/L (137-145)
--- NOTE | 2023-05-31 09:59 | P.PCN ---
Date of Procedure: 05/31/23 Description of Procedure: PREOPERATIVE DIAGNOSIS: Dysphagia. Gastroesophageal reflux disease POSTOPERATIVE DIAGNOSIS: Dysphagia. Gastroesophageal reflux disease Esophageal stricture, upper Presbyesophagus OPERATION: Esophagogastroduodenoscopy with rigid dilator over the guidewire 54 Fr. SURGEON: Latanya Kumar MD ANESTHESIA: MAC. INDICATIONS: The patient is a 82-year-old male who presents with a history of dysphagia. Benefits and risks of the procedure were described. Informed consent was obt ained. DESCRIPTION: The patient was brought into the endoscopy suite and laid in the left lateral decubitus position. After a timeout was confirmed, the procedure was initiated. An Olympus gastroscope was passed and the stomach was entered. Mild gastritis was identified. The scope was advanced to the duodenum which was unremarkable. Retroflexion the scope confirmed a Hill grade 2 lower esophageal valve. Next using an Chadian rigid dilator, a guidewire was placed through the pediatric gastroscope. Next the scope was withdrawn. A 54-[place] rigid Chadian dilator was passed carefully along the posterior oropharynx to 50 cm and left in place for 2-3 minutes stretch. The dilator was withdrawn including the guidewire. The scope was reentered along the posterior oropharynx with no findings of full-thickness tear of the upper esophageal sphincter. No full-thickness injury was encountered. The GI tract was desufflated. The patient tolerated the procedure well. FINDINGS: Squamocolumnar junction unremarkable at 39 cm. Upper esophageal stricture without ulceration Chadian rigid dilator 54-[place] completed. No diaphragmatic hiatal hernia Mild gastritis Hill grade 2 lower esophageal valve. LA grade A esophagitis. Presbyesophagus RECOMMENDATIONS: Upper endoscopy as needed Hold blood thinner for 48 hours Ground diet in the interim
[2023-05-31] MEDS: INSULIN REGULAR 100 UNIT/ML VIAL (IV) IV ONE (11:04)
[2023-05-31] MEDS: DEXTROSE 50% SYRINGE 50 ML IVP ONE (11:05)
[2023-05-31] MEDS: SODIUM ZIRCONIUM CYCLOSILICATE 10 GM PACKET PO SCH (11:05)
[2023-05-31 11:47] LABS: Glucose,Whole Blood 165 mg/dL (70-110)
--- NOTE | 2023-05-31 11:47 | P.NPCON ---
History of Present Illness - Reason for Consult hyperkalemia - History of Present Illness Reason for consultation: Hyperkalemia History of present illness: Patient is 82-year-old female seen in renal consultation for hyperkalemia. Patient's potassium level this admission has been in the range of 5.3-6. It was 5.5 this morning. Patient came to the hospital on May 24, 2023 and underwent bronchoscopy due to mediastinal lymphadenopathy. She went into A-fib with RVR and was subsequently admitted to the hospital. She also underwent EGD this admission due to dysphagia and weight loss which showed AV malformations in the stomach. She subsequently underwent EGD with dilation this morning. Blood pr essures have been stable with some readings on the lower side. This morning's blood pressure was 107/51. She has been voiding. Denies gross hematuria or dysuria. She does take lisinopril outpatient but is currently not getting it in the hospital. GFR is at baseline. Additionally her calcium level is also on the higher side and was up to 10.6 this morning. She denies taking Tums or calcium supplements but does admit to taking vitamin D daily. She is receiving vitamin D currently in the hospital as well. Patient has history of lymphoma. Vital signs are stable. General: No acute distress. HEENT: Head exam is unremarkable. LUNGS: No audible rhonchi or wheezes. HEART: Rate and Rhythm are regular. ABDOMEN: Nontender. EXTREMITITES: No edema. Past Medical History Past Medical History: Coronary Artery Disease (CAD), Cancer, Chest Pain / Angina, Heart Failure, Diabetes Mellitus, Hyperlipidemia, Hypertension, Myocardial Infarction ([place]), Osteoarthritis (OA), Respiratory Disorder, Rheumatoid Arthritis (RA), Thyroid Disorder Additional Past Medical History / Comment(s): 04/2023 admitted to [facility] with acute hypoxic respiratory failure/R parapneumonic effusio/had thoracentesis/chf/NSTEMI. Other hx: Abnormal cat scan of chest, SOB at all times and weak, appetite very poor so taken off diabetic medications, hypothyroidism, neuropathy, 2013 lymphoma both sides of jaw/surgery one side/chemotherapy Last Myocardial Infarction Date:: 04/2023 History of Any Multi-Drug Resistant Organisms: None Reported Past Surgical History: Coronary Bypass/CABG, Heart Catheterization, Hysterectomy, Orthopedic Surgery Additional Past Surgical History / Comment(s): Partial thyroidectomy, 2009 CABG 4 vessel, R side jaw/neck surgery, bilateral carpal tunnel release Past Anesthesia/Blood Transfusion Reactions: No Reported Reaction Smoking Status: Former smoker - Past Family History Father History Unknown: Yes Family Medical History: Cancer Additional Family Medical History / Comment(s): at 59 from cancer. Mother History Unknown: Yes Family Medical History: Myocardial Infarction ([place]) Additional Family Medical History / Comment(s): of [place] at 55yrs. Medications and Allergies Home Medications Medication Instructions Recorded Confirmed Type Aspirin EC [Ecotrin Low Dose] 81 mg PO QAM 04/14/23 05/24/23 History Cholecalciferol [Vitamin D3 (25 25 mcg PO QAM 04/14/23 05/24/23 History Mcg = 1000 Iu)] Cyanocobalamin (Vitamin B-12) 1,000 mcg PO QAM 04/14/23 05/24/23 History [Vitamin B-12] Ferrous Sulfate [Iron (65 MG 325 mg PO QAM 04/14/23 05/24/23 History Elemental)] Levothyroxine Sodium [Synthroid] 200 mcg PO QAM 04/14/23 05/24/23 History Omeprazole 40 mg PO QAM 04/14/23 05/24/23 History Simvastatin [Zocor] 20 mg PO HS 04/14/23 05/24/23 History carvediloL [Coreg] 6.25 mg PO BID 04/14/23 05/24/23 History lisinopriL 40 mg PO QAM 04/14/23 05/24/23 History Furosemide [Lasix] 20 mg PO QAM 05/23/23 05/24/23 History Ibuprofen 600 mg PO Q8H PRN 05/23/23 05/24/23 History Isosorbide Mononitrate ER [Imdur] 30 mg PO QAM 05/23/23 05/24/23 History Allergies Allergy/AdvReac Type Severity Reaction Status Date / Time atorvastatin [From Lipitor] Allergy Swelling Verified 05/24/23 13:19 bisacodyl Allergy Rash/Hives Verified 05/24/23 13:19 [From Dulcolax (bisacodyl)] carisoprodol [From Soma] Allergy Unknown Verified 05/24/23 13:19 morphine Allergy Vomiting Verified 05/24/23 13:19 orphenadrine Allergy Unknown Verified 05/24/23 13:19 pseudoephedrine Allergy Rash/Hives Verified 05/24/23 13:19 [From Sudafed] tramadol [From Ultram] Allergy Unknown Verified 05/24/23 13:19 Physical Exam Vitals: Vital Signs Temp Pulse Pulse Pulse Resp BP BP 05/31/23 09:41 90 16 107/51 05/31/23 09:30 95 20 113/52 05/31/23 09:16 102 H 20 124/60 05/31/23 09:04 97 F L 90 20 176/92 05/31/23 08:07 97.9 F 90 91 16 95/61 05/31/23 08:00 05/31/23 07:51 90 16 05/31/23 02:56 98.1 F 75 18 101/57 05/30/23 20:00 98.4 F 88 17 89/50 05/30/23 17:09 89 101/63 05/30/23 14:10 97.6 F 75 19 107/64 Pulse Ox 05/31/23 09:41 93 L 05/31/23 09:30 95 05/31/23 09:16 91 L 05/31/23 09:04 91 L 05/31/23 08:07 91 L 05/31/23 08:00 97 05/31/23 07:51 05/31/23 02:56 91 L 05/30/23 20:00 89 L 05/30/23 17:09 05/30/23 14:10 96 Intake and Output 05/30/23 05/31/23 05/31/23 22:59 06:59 14:59 Intake Total 0 50 Balance 0 50 Intake: IV 50 Oral 0 Other: Voiding Method Toilet Toilet # Voids 1 Results - Lab Results Most recent lab results Calcium 10.6 mg/dL (8.4-10.2) H 05/31/23 08:09 05/30/23 05:53 05/31/23 08:09 Assessment and Plan Plan: Assessment: 1. Hyperkalemia. Rule out urinary retention. Takes lisinopril outpatient but currently held. Blood sugars not elevated. No significant acidosis. 2. Hypercalcemia secondary to vitamin D supplementation and concern for underlying malignancy. 3. Dysphagia status post EGD with dilation. Surgery following. 4. A-fib with RVR. Stable. 5. Right upper lobe masslike consolidation with mediastinal lymphadenopathy concerning for malignancy. 6. History of lymphoma. 7. Diabetes mellitus. Plan: Maintain Lasix. Also started on Lokelma once daily. Low potassium diet. Repeat potassium level this evening. Check bladder scan to rule out urinary retention. DC vitamin D. Check further workup for hypercalcemia. Thank you for the consultation. I will continue to follow the patient with you during her hospital stay.
--- NOTE | 2023-05-31 12:20 | P.PN ---
Subjective Progress Note Date: 05/31/23 Patient is a 82-year-old female with a past medical history of coronary artery disease status post quadruple bypass in 2009 in [place], history of non- Hodgkin's lymphoma, hypertension, diabetes type 2, hyperlipidemia, history of [place], osteoarthritis, rheumatoid others, hypothyroidism. Patient was brought to the hospital for bronchoscopy with endoscopic ultrasound and DVT aspiration biopsy of the mediastinal lymph node.. Postprocedure while in the recovery room patient went into atrial fibrillation with rapid ventricular rate and heart rate went up to 130s. EKG showed atrial fibrillation with rapid ventricular rate. Cardizem drip was ordered but before starting the infusion patient converted back to sinus rhythm and heart rate came down to 70s. She was admitted to the hospital for further evaluation Patient was recently admitted to the hospital from 04/15/2023 to 04/21/2023. She is admitted due to worsening shortness of breath, requiring BiPAP. Patient was also found to have right-sided pleural effusion status post paracentesis showed reactive mesothelial cells, macrophages and mixed inflammatory cells. No c cytologically malignant cells identified. CT chest on 04/15/2023 showed large right-sided pleural effusion. Repeat CT on 05/07/2023 showed decreasing but residual moderate right pleural effusion, however there is worsening irregular dural thickening/throughout the right hemithorax now measuring up to 1.3 cm thick versus 1.0 cm previously. Focal subpleural soft tissue anteromedial right lower lung measures up to 3.3 cm and appears new. New diffuse subpleural nodularity along the right-sided lung fissures. Correlate for slight interval neoplastic disease present progression, possible lymphoma. Currently patient denies any complaints of chest pain. No worsening shortness of breath. Denies any palpitations. No nausea vomiting abdominal pain or diarrhea. Patient is on Ventimask which is being titrated down to nasal cannula oxygen. No complaints of fever or chills. No diarrhea. No cough or sputum production. Denies any worsening leg swelling recently. 05/25/2023 Patient is sitting on the side of the bed. Awake alert and oriented x 3. Complains of bloating and abdominal and not able to tolerate oral diet. No bowel movement today. Otherwise patient is having atrial fibrillation with RVR last night on and off. Was started on amiodarone drip and added anticoagulation with Eliquis as per cardiology recommendations. Patient was also found to have elevated free T4 level and low TSH level. Levothyroxine dose reduced to 125 mcg daily from 200 mcg which she takes at home. Otherwise patient has been afebrile. Requiring oxygen via nasal cannula. No c omplaints of chest pain. Does have exertional shortness of breath. Laboratory data showed Pulmonary and cardiology is on board. WBC 11.0 hemoglobin 12.7 platelets 151 Sodium 136 potassium 5.4 chloride 107 bicarb is 19 BUN 59 and creatinine 0.78 and blood sugar 165 TSH 0.276 and free T4 3.66. 05/26/2023 Patient is currently sitting on the side of the bed. Awake alert and oriented x 3. Feels weak and lethargic. Currently on oxygen at 4 L via nasal cannula. Otherwise heart rate is better controlled and amiodarone changed to p.o. Patient did have a swallow evaluation. Recommends EGD as per speech pathology. Otherwise patient has been afebrile. Blood pressure is marginal. Laboratory data reviewed. Cardiology and pulmonary is on board. 05/26. Patient seen and examined. Complaining of back pain. Currently on 3 L of oxygen. Gets short of breath on minimal exertion. Complaining of dysphagia 05/27. Patient seen and examined. Continues to be on 4 L of oxygen. 05/28. Patient seen and examined. General surgery are planning EGD today. Breathing has improved. Denies any chest pain. Vital signs stable lab work done showed WBC 9.29, hemoglobin 9.2, platelet count 131, sodium 133, potassium 5.6 05/29. Patient seen and examined. 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 Patient seen examined. Patient scheduled for repeat EGD today. Patient potassium level was elevated at 5.5, ordered Lokelma. Still complaining of shortness of breath. REVIEW OF SYSTEMS: CONSTITUTIONAL: No fever, no malaise,. CARDIOVASCULAR: No chest pain, no palpitations, no syncope. PULMONARY: As mentioned above GASTROINTESTINAL: No diarrhea, no nausea, no vomiting, no abdominal pain. NEUROLOGICAL: No headaches, no weakness, PHYSICAL EXAMINATION: GENERAL: The patient is alert and oriented x3, not in any acute distress. Well developed, well nourished. HEENT: Pupils are round and equally reacting to light. EOMI. No scleral icterus. No conjunctival pallor. Normocephalic, atraumatic. No pharyngeal erythema. No thyromegaly. CARDIOVASCULAR: S1 and S2 present. No murmurs, rubs, or gallops. PULMONARY: Coarse breath sound bilaterally, bilateral crackles audible ABDOMEN: Soft, nontender, nondistended, normoactive bowel sounds. No palpable organomegaly. MUSCULOSKELETAL: No joint swelling or deformity. EXTREMITIES: No cyanosis, clubbing, or pedal edema. NEUROLOGICAL: Gross neurological examination did not reveal any focal deficits. SKIN: No rashes. Assessment and plan New onset atrial fibrillation with rapid ventricular rate with heart rate in 1 30s. While she was in the recovery room. Patient was converted back to sinus rhythm before starting on Cardizem drip. Off amiodarone drip. Changed to p.o. Diffuse subpleural nodularity along the right sided lung fissures correlate for interval neoplastic disease progression. Mediastinal lymphadenopathy. Patient is s/p bronchoscopy and endobronchial ultrasound with needle biopsy on 05/24/2023. Acute hypoxic respiratory failure status post bronchoscopy. Currently on 4 L oxygen via nasal cannula. Recent admission with acute hypoxic respiratory failure status post right thoracentesis. fluid cytology negative for malignancy. Chronic CHF with systolic dysfunction ejection fraction 25 to 30%, mid to distal inferolateral and lateral wall hypokinesis and inferior apical wall hypokinesis. Ischemic cardiomyopathy Hyperkalemia Dysphagia Coronary artery disease with prior history of quadruple CABG in 2009 Hypertension Diabetes type 2 [id number] Hyperlipidemia Rheumatoid arthritis not on any treatment currently. Hypothyroidism. Patient has elevated free T4 level. Levothyroxine dose reduced to 125 mcg daily. History of non-Hodgkin's lymphoma status postchemotherapy. Currently in remission. Monitor vital signs Monitor CBC Monitor CMP Continue telemetry monitoring Encourage use of incentive spirometer Continue amiodarone twice daily Continue Eliquis Continue oral Lasix Follow-up biopsy of the mediastinal lymph node. 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 Consult nephrology for elevated potassium level Labs and medication were reviewed.. Continue same treatment. Continue with symptomatic treatment. Resume home medication. Monitor labs and vitals. DVT and GI prophylaxis. Further recommendations as per clinical course of the patient Dictation was produced using [employer] dictation software. please excuse any grammatical, word or spelling errors. Objective - Vital Signs Vital signs: Vital Signs Temp 97 F L 05/31/23 09:04 Pulse 90 05/31/23 09:41 Resp 16 05/31/23 09:41 BP 107/51 05/31/23 09:41 Pulse Ox 93 L 05/31/23 09:41 FiO2 Intake & Output 05/30/23 05/31/23 05/31/23 18:59 06:59 18:59 Intake Total 0 50 Balance 0 50 Weight 79.3 kg Intake: IV 50 Oral 0 Other: Voiding Method Toilet Toilet # Voids 1 - Labs CBC & Chem 7: 05/30/23 05:53 05/31/23 08:09 Labs: Abnormal Lab Results - Last 24 Hours (Table) 05/30/23 05/30/23 05/30/23 Range/Units 05:53 05:53 17:28 RBC 3.95 L (4.10-5.20) X 10*6/uL MCHC 31.3 L (32.0-37.0) g/dL RDW 15.5 H (11.5-14.5) % Plt Count 139 L (140-440) X 10*3/uL MPV 12.7 H (9.5-12.2) FL Sodium (137-145) mmol/L Potassium 6.0 H (3.5-5.5) mmol/L BUN 46.6 H (9.0-27.0) mg/dL BUN/Creatinine Ratio 51.78 H (12.00-20.00) Ratio Glucose (74-99) mg/dL POC Glucose (mg/dL) 134 H (70-110) mg/dL Calcium 10.4 H (8.7-10.3) mg/dL Total Protein 4.8 L (6.2-8.2) g/dL Albumin 2.8 L (3.8-4.9) g/dL Albumin/Globulin Ratio 1.40 L (1.60-3.17) Ratio 05/31/23 Range/Units 08:09 RBC (4.10-5.20) X 10*6/uL MCHC (32.0-37.0) g/dL RDW (11.5-14.5) % Plt Count (140-440) X 10*3/uL MPV (9.5-12.2) FL Sodium 132 L (137-145) mmol/L Potassium 5.5 H (3.5-5.5) mmol/L BUN 40 H (9.0-27.0) mg/dL BUN/Creatinine Ratio (12.00-20.00) Ratio Glucose 108 H (74-99) mg/dL POC Glucose (mg/dL) (70-110) mg/dL Calcium 10.6 H (8.7-10.3) mg/dL Total Protein (6.2-8.2) g/dL Albumin (3.8-4.9) g/dL Albumin/Globulin Ratio (1.60-3.17) Ratio
--- NOTE | 2023-05-31 14:51 | P.PN ---
Subjective Progress Note Date: 05/31/23 This is a 82-year-old female patient was suspected to have malignancy. The patient has been having progressive worsening in her health status in general. She has not been eating. She has been extremely weak and debilitated. She was in the hospital approximately a month ago and at that time she came in with acute hypoxic respiratory failure and the patient was initially supported with BiPAP and subsequently was found to have a right-sided pleural effusion. I performed a bedside thoracentesis on this patient and a total of 1.6 L of fluid was aspirated and fluid cytology was negative for malignancy. Echocardiogram showed impaired LV function with an EF of around 25 to 30% and there was some mid to distal anterolateral wall hypokinesis and apical hypokinesis. The patient also had mild to moderate aortic valve calcification without any stenosis. She is subsequent CAT scan of the chest showed a loculated moderate- sized right-sided pleural effusion and irregular pleural wall thickening and the rind throughout the right hemithorax up to 1.3 cm in size and there was also what seems to be right upper lobe mass with extension into the mediastinum in addition to lymphadenopathy within the right hilum measuring around 2.3 cm in size and right suprahilar measuring 1.9 cm in size and in the subcarinal area in addition. There was a mass in the right upper lobe that is pleural-based opacity measuring 4.0 cm in size. Of significance was extensive pleural surface irregularity and nodular structures and this was obviously a manifestation of a neoplastic process and the concern was adenocarcinoma versus mesothelioma versus lymphoma as the patient is known to have a previous history of lymphoma. This was explained to the patient and the family members at length. Family was adamant in establishing a diagnosis. Based on that, the patient was brought in today patient underwent an endobronchial ultrasound under general anesthesia. I did not biopsy the right upper lobe mass. I was going more conservative because of her medical problems and I ended up doing a transbronchial needle aspirate of station 10 R and station 7 lymph nodes. Note that following her procedure, the patient was extubated and she got transferred to recovery where she went into A- fib RVR. I ordered Cardizem drip and this was not started and by the time she was about to start the Cardizem she converted to normal sinus rhythm. I discussed the findings with the family. The family told me that the patient's condition was progressively getting worse and she was not eating and they were very much concerned about her health in general and they wanted to keep her in the hospital. As such, the patient will be hospitalized to telemetry unit. She is known to have a left atrial ejection fraction of 25%. She is also known to have history of rheumatoid arthritis and she is currently off Remicade. She has diabetes mellitus type 2, coronary artery disease, hyperlipidemia, hyperlipidemia, remote history of non-Hodgkin's lymphoma. On today's evaluation of 05/25/2023, the patient is stable on 4L of oxygen by nasal cannula. Her cardiac rhythm is back to sinus. She is started on anticoagulation and she is currently on Eliquis. She is also on Lasix 20 mg p.o. daily. She is on Coreg 6.25 mg twice a day. Denies having any new complaints. The white cell count 11 with a hemoglobin 12.7 and a platelet count of 151. Sodium is at 136, BUN is at 59 with a creatinine of 0.7 and a potassium level is at 5.4. Thyroid function test shows a TSH free of 3.66 with a free T4 of 0.276. The patient remains on levothyroxine at 125 mcg p.o. daily. The dose of the thyroid has been modified and the patient has been just from 200 mcg on 225. On today's evaluation of 05/26/2023, the patient is resting comfortably in bed. No specific complaints. She is lethargic and weak. She remains on 40s of oxygen by nasal cannula with a pulse ox of 94%. Results of the biopsy are still pending for now. The patient has no significant complaints. The patient has chest wall pain on the right. This is an ongoing chronic problem dated 2 abnormalities that were described earlier. The patient is currently in normal sinus mechanism. The patient's thyroid dose has been i adjusted by the medical group. Nipple Machine Operator also on the case. On today's evaluation of 05/27/2023, the patient is resting comfortably in bed. No specific complaints. Awaiting the results of the biopsy. WBC count is at 10.5 and hemoglobin 12 .7 and a platelet count of 135. The rest of the blood work shows a BUN of 62 with a creatinine of 1.09 and sodium levels at 131 with a potassium level of 5.8. The patient's is resting comfortably in bed. No other issues for now. She is complaining of pain along the right lateral chest area. She remains on anticoagulation with Eliquis 5 mg p.o. twice a day. She remains on her routine outpatient medications. Surgical consultation for dysphagia was done. Patient will be given an upper GI esophagogram and further workup regarding this dysphagia will be done depending on the results of the endobronchial ultrasound biopsies from the mediastinum. Highly suspicious for malignancy as mentioned. On today's evaluation of 05/28/2023, the patient resting comfortably in bed. No change in her condition. Awaiting final pathology from the biopsies and she should this should be available by Monday. Meanwhile, the patient has no specific complaints. She remains on 4 L with a pulse ox of 95%. Resting comfortably in bed. Pain remains unchanged. The patient is seen today May 29, 2023 in follow-up on the regular medical floor. She was initially here for an elective lung biopsy on May 24, 2023 but developed atrial fibrillation with a rapid ventricular response in the recovery room. She has been initiated on amiodarone. Anticoagulated with Eliquis. Pathology is still pending. She is maintaining O2 saturations in the 90s on 4 L/min per nasal cannula. She did undergo EGD today due to her dysphagia, unintentional weight loss and anticoagulant use. 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 White count 9.2. Hemoglobin 11.2. Platelets 131. Sodium 133. Potassium 5.6. Bicarb 24. BUN 44. Creatinine 0.8. Glucose 90. Patient was reevaluated today on 05/30/2023, pulmonary dos santos the patient is doing great, however she has GI issues being addressed by general surgery on the case. EGD on 05/28 showed AV malformation of the stomach surgery is still recommending holding anticoagulation until they do EGD dilatation which is scheduled for 05/05. Pulmonary dos santos no cough no wheezing no shortness of breath. And her atrial fibrillation seems to be relatively under control patient remains on 4 L nasal cannula with O2 sats of 96%, blood pressure 107/64, and A-fib seems to be controlled The patient is seen today May 31, 2023 in follow-up on the regular medical floor. She is awake and alert in no acute distress. She did undergo repeat EGD with rigid dilator for esophageal dilatation. Blood thinner Eliquis will be held for 48 hours. Ground diet recommended. Sodium 132. Potassium 5.5. Bicarb 22. BUN 40. Creatinine 0.78. Glucose 108. She remains on amiodarone. Continued on diuretics. Continued on Protonix. Objective - Vital Signs Vital signs: Vital Signs Temp 97 F L 05/31/23 09:04 Pulse 90 05/31/23 09:41 Resp 16 05/31/23 09:41 BP 107/51 05/31/23 09:41 Pulse Ox 93 L 05/31/23 09:41 FiO2 Intake & Output 05/30/23 05/31/23 05/31/23 18:59 06:59 18:59 Intake Total 0 50 Balance 0 50 Weight 79.3 kg Intake: IV 50 Oral 0 Other: Voiding Method Toilet Toilet Toilet # Voids 1 - Exam GENERAL EXAM: Alert, 82-year-old female, on 4 L nasal cannula, in no apparent distress. HEAD: Normocephalic. EYES: Normal reaction of pupils, equal size. NOSE: Clear with pink turbinates. THROAT: No erythema or exudates. NECK: No masses, no JVD. CHEST: No chest wall deformity. LUNGS: Equal air entry with few scattered rhonchi. CVS: S1 and S2 normal with no audible murmur, regular rhythm. ABDOMEN: No hepatosplenomegaly, normal bowel sounds, no guarding or rigidity. SPINE: No scoliosis or deformity SKIN: No rashes CENTRAL NERVOUS SYSTEM: No focal deficits, tone is normal in all 4 extremities. EXTREMITIES: There is no peripheral edema. No clubbing, no cyanosis. Peripheral pulses are intact. - Labs CBC & Chem 7: 05/30/23 05:53 05/31/23 08:09 Labs: Abnormal Lab Results - Last 24 Hours (Table) 05/30/23 05/31/23 05/31/23 Range/Units 17:28 08:09 11:46 Sodium 132 L (137-145) mmol/L Potassium 5.5 H (3.5-5.1) mmol/L BUN 40 H (7-17) mg/dL Glucose 108 H (74-99) mg/dL POC Glucose (mg/dL) 134 H 165 H (70-110) mg/dL Calcium 10.6 H (8.4-10.2) mg/dL Assessment and Plan Assessment: New onset atrial fibrillation with RVR, converted to normal sinus rhythm and the patient Is currently hemodynamically stable. Patient is currently on Cordarone and Coreg. Anticoagulation with Eliquis. Thyroid levels were elevated and the free T4 was high and accordingly the Synthroid dose was dropped down to 125 mcg on a daily basis. The patient remains in normal sinus mechanism for now Acute hypoxic respiratory failure post bronchoscopy May 24 2023 and the patient is currently on 4 L of oxygen by nasal cannula the flow to be titrated to maintain saturation above 90%. Chest x-ray findings are stable and is consistent with a right upper lobe mass, pleural thickening and loculated right- sided pleural effusion She did undergo EGD today May 29, 2023 due to her dysphagia, unintentional weight loss and anticoagulant use. 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 She did undergo follow-up EGD today May 31, 2023 for esophageal dilatation. Eliquis to remain on hold x 48 hours. Right upper lobe masslike consolidation measuring 4.0 cm in addition to extensive mediastinal lymphadenopathy involving the paratracheal, right hilar and suprahilar area and the patient has significant pleural surface irregularities and multiloculated right-sided pleural effusions. Possibilities include adenocarcinoma of the lung, mesothelioma, and lymphoma. Note that the pleural surface is quite thickened and is reaching approximately 1.3 cm with significant irregularities and previous thoracentesis yielded no final pathology diagnosis. Nevertheless, the findings are highly suspicious for malignancy. Patient and the family was made aware. She has a poor baseline performance and functional status. She may not be a candidate for any treatment if the diagnosis of malignancy established. Nevertheless, patient and family are highly interested in establishing a final diagnosis and she did undergo an endobronchial ultrasound and biopsy of the mediastinal lymph nodes on May 24, 2023. Cytology still pending Mediastinal lymphadenopathy detail discussed above, awaiting final pathology postbiopsy Chest wall pain with an irregular pleural surface border with multiple nodularities and secondary pain. This is likely malignant process. Rule out mesothelioma versus adenocarcinoma versus lymphoma. Offered nonsteroidal anti- inflammatory medications for pain control. Pleural effusion with previous thoracentesis removed approximately 1.6 to 2 L of pleural fluid from the right lung. The fluid was exudative. The fluid cytology came back negative for malignancy Coronary arteriosclerosis - She is post CABG Chronic systolic heart failure diagnosed by an echocardiogram that was done and the patient has ejection fraction of 25% and she has some edema in lower extremities and she is seeing cardiology and she is currently on diuretics and she is taking Lasix at a dose of 40 mg once a day Non-Hodgkin's lymphoma (clinical) She is in remission and she was diagnosed in 2013 and she has completed the chemotherapy . This involved the jaw and the head and neck Type 2 diabetes mellitus Maintained on Metformin and glyburide Rheumatoid arthritis On no treatment and she is off Ramicade Medical debility along with weight loss and diminished appetite and failure to thrive Plan: The patient was seen and evaluated Labs and medications reviewed EGD with dilatation performed today Timothy to be on hold x 48 hours S/p endoscopy with mediastinal lymph node biopsy on May 24, 2023 Pathology is is still pending We will continue to follow I have personally seen and examined the patient, performed the documentation and the assessment and plan as written. Number of minutes spent on the visit: 10.
[2023-05-31 16:42] LABS: Glucose,Whole Blood 111 mg/dL (70-110)
[2023-05-31] MEDS ORDERED: SODIUM ZIRCONIUM CYCLOSILICATE 10 GM PACKET PO ONE (18:30)
[2023-05-31 18:54] LABS: Protein, Total 5.5 g/dL (6.2-8.2)
[2023-05-31 21:32] LABS: Glucose,Whole Blood 84 mg/dL (70-110)
[2023-06-01 06:06] LABS: Glucose,Whole Blood 93 mg/dL (70-110)
[2023-06-01 08:38] LABS: Basophils # (A) 0.06 X 10*3/uL (0.00-0.10); Basophils % (A) 0.6 %; Eosinophils # (A) 0.61 X 10*3/uL (0.04-0.35); Eosinophils % (A) 5.9 %; HCT 38.9 % (37.2-46.3); HGB 12.2 g/dL (12.0-15.0); Lymphocytes % (A) 31.7 %; MCH 30.2 pg (27.0-32.0); MCHC 31.4 g/dL (32.0-37.0); MCV 96.3 FL (80.0-97.0); Monocytes # (A) 0.97 X 10*3/uL (0.20-1.00); Monocytes % (A) 9.3 %; NRBC Per 100 WBC 0 X 10*3/uL (0.00-0.01); Neutrophils # (A) 5.43 X 10*3/uL (1.80-7.70); Neutrophils % (A) 52.2 %; Platelet Count 149 X 10*3/uL (140-440); RBC 4.04 X 10*6/uL (4.10-5.20); RDW 15.7 % (11.5-14.5)
[2023-06-01 09:58] LABS: Angiotensin-1 Converting Enz. 5 U/L (8-52)
--- NOTE | 2023-06-01 11:26 | P.PN ---
Subjective Patient is seen in follow-up for hyperkalemia. Morning labs pending. Has been voiding. Denies chest pain or shortness of breath. Vital signs are stable. General: No acute distress. HEENT: Head exam is unremarkable. LUNGS: No audible rhonchi or wheezes. HEART: Rate and Rhythm are regular. ABDOMEN: Nontender. EXTREMITITES: Trace edema. Objective - Vital Signs Vital signs: Vital Signs Temp 97.9 F 06/01/23 08:00 Pulse 76 06/01/23 08:00 Resp 18 06/01/23 08:00 BP 108/68 06/01/23 08:00 Pulse Ox 92 L 06/01/23 01:25 FiO2 Intake & Output 05/31/23 06/01/23 06/01/23 18:59 06:59 18:59 Intake Total 50 Output Total 2150 Balance 50 -2150 Intake: IV 50 Output: Urine 2150 Other: Voiding Method Toilet Toilet - Labs CBC & Chem 7: 06/01/23 06:05 05/31/23 19:14 Labs: Abnormal Lab Results - Last 24 Hours (Table) 05/31/23 05/31/23 05/31/23 Range/Units 11:46 14:02 14:02 WBC (4.50-10.00) X 10*3/uL RBC (4.10-5.20) X 10*6/uL MCHC (32.0-37.0) g/dL RDW (11.5-14.5) % Eosinophils # (0.04-0.35) X 10*3/uL Potassium 5.4 H (3.5-5.1) mmol/L POC Glucose (mg/dL) 165 H (70-110) mg/dL Total Protein (PEP) (6.2-8.2) g/dL Angiotensin Convert Enz 5 L (8-52) U/L 05/31/23 05/31/23 05/31/23 Range/Units 14:02 16:41 19:14 WBC (4.50-10.00) X 10*3/uL RBC (4.10-5.20) X 10*6/uL MCHC (32.0-37.0) g/dL RDW (11.5-14.5) % Eosinophils # (0.04-0.35) X 10*3/uL Potassium 5.3 H (3.5-5.1) mmol/L POC Glucose (mg/dL) 111 H (70-110) mg/dL Total Protein (PEP) 5.5 L (6.2-8.2) g/dL Angiotensin Convert Enz (8-52) U/L 06/01/23 Range/Units 06:05 WBC 10.40 H (4.50-10.00) X 10*3/uL RBC 4.04 L (4.10-5.20) X 10*6/uL MCHC 31.4 L (32.0-37.0) g/dL RDW 15.7 H (11.5-14.5) % Eosinophils # 0.61 H (0.04-0.35) X 10*3/uL Potassium (3.5-5.1) mmol/L POC Glucose (mg/dL) (70-110) mg/dL Total Protein (PEP) (6.2-8.2) g/dL Angiotensin Convert Enz (8-52) U/L Assessment and Plan Plan: Assessment: 1. Hyperkalemia. Takes lisinopril outpatient but currently held. Blood sugars not elevated. No significant acidosis. No urinary retention. 2. Hypercalcemia secondary to vitamin D supplementation and concern for underlying malignancy. Vitamin D level 33.1. SCAR level low. 3. Dysphagia status post EGD with dilation. Surgery following. 4. A-fib with RVR. Stable. 5. Right upper lobe masslike consolidation with mediastinal lymphadenopathy concerning for malignancy. 6. History of lymphoma. 7. Diabetes mellitus. Plan: Maintain Lasix. Maintain Lokelma. Low potassium diet. Avoid calcium and vitamin D supplementation. Follow-up pending workup for hypercalcemia. Morning labs pending.
[2023-06-01 11:38] LABS: BUN/Creat Ratio 51.14 Ratio (12.00-20.00); Blood Urea Nitrogen 35.8 mg/dL (9.0-27.0); Chloride 102 mmol/L (96-109); Glucose 98 mg/dL (70-110); Potassium 5.3 mmol/L (3.5-5.5); Sodium 136 mmol/L (135-145)
[2023-06-01 11:39] LABS: ALT 13 U/L (8-44); AST 16 U/L (13-35); Albumin 2.8 g/dL (3.8-4.9); Albumin/Globulin Ratio 1.33 Ratio (1.60-3.17); Alkaline Phosphatase 51 U/L (41-126); Calcium 10.6 mg/dL (8.7-10.3); Carbon Dioxide 24.3 mmol/L (21.6-31.8); Globulin 2.1 g/dL (1.6-3.3); Total Bilirubin 0.3 mg/dL (0.3-1.2); Total Protein 4.9 g/dL (6.2-8.2)
[2023-06-01 11:49] LABS: Glucose,Whole Blood 106 mg/dL (70-110)
--- NOTE | 2023-06-01 12:28 | P.PN ---
Subjective Progress Note Date: 06/01/23 Patient is a 82-year-old female with a past medical history of coronary artery disease status post quadruple bypass in 2009 in [place], history of non- Hodgkin's lymphoma, hypertension, diabetes type 2, hyperlipidemia, history of [place], osteoarthritis, rheumatoid others, hypothyroidism. Patient was brought to the hospital for bronchoscopy with endoscopic ultrasound and DVT aspiration biopsy of the mediastinal lymph node.. Postprocedure while in the recovery room patient went into atrial fibrillation with rapid ventricular rate and heart rate went up to 130s. EKG showed atrial fibrillation with rapid ventricular rate. Cardizem drip was ordered but before starting the infusion patient converted back to sinus rhythm and heart rate came down to 70s. She was admitted to the hospital for further evaluation Patient was recently admitted to the hospital from 04/15/2023 to 04/21/2023. She is admitted due to worsening shortness of breath, requiring BiPAP. Patient was also found to have right-sided pleural effusion status post paracentesis showed reactive mesothelial cells, macrophages and mixed inflammatory cells. No c cytologically malignant cells identified. CT chest on 04/15/2023 showed large right-sided pleural effusion. Repeat CT on 05/07/2023 showed decreasing but residual moderate right pleural effusion, however there is worsening irregular dural thickening/throughout the right hemithorax now measuring up to 1.3 cm thick versus 1.0 cm previously. Focal subpleural soft tissue anteromedial right lower lung measures up to 3.3 cm and appears new. New diffuse subpleural nodularity along the right-sided lung fissures. Correlate for slight interval neoplastic disease present progression, possible lymphoma. Currently patient denies any complaints of chest pain. No worsening shortness of breath. Denies any palpitations. No nausea vomiting abdominal pain or diarrhea. Patient is on Ventimask which is being titrated down to nasal cannula oxygen. No complaints of fever or chills. No diarrhea. No cough or sputum production. Denies any worsening leg swelling recently. 05/25/2023 Patient is sitting on the side of the bed. Awake alert and oriented x 3. Complains of bloating and abdominal and not able to tolerate oral diet. No bowel movement today. Otherwise patient is having atrial fibrillation with RVR last night on and off. Was started on amiodarone drip and added anticoagulation with Eliquis as per cardiology recommendations. Patient was also found to have elevated free T4 level and low TSH level. Levothyroxine dose reduced to 125 mcg daily from 200 mcg which she takes at home. Otherwise patient has been afebrile. Requiring oxygen via nasal cannula. No c omplaints of chest pain. Does have exertional shortness of breath. Laboratory data showed Pulmonary and cardiology is on board. WBC 11.0 hemoglobin 12.7 platelets 151 Sodium 136 potassium 5.4 chloride 107 bicarb is 19 BUN 59 and creatinine 0.78 and blood sugar 165 TSH 0.276 and free T4 3.66. 05/26/2023 Patient is currently sitting on the side of the bed. Awake alert and oriented x 3. Feels weak and lethargic. Currently on oxygen at 4 L via nasal cannula. Otherwise heart rate is better controlled and amiodarone changed to p.o. Patient did have a swallow evaluation. Recommends EGD as per speech pathology. Otherwise patient has been afebrile. Blood pressure is marginal. Laboratory data reviewed. Cardiology and pulmonary is on board. 05/26. Patient seen and examined. Complaining of back pain. Currently on 3 L of oxygen. Gets short of breath on minimal exertion. Complaining of dysphagia 05/27. Patient seen and examined. Continues to be on 4 L of oxygen. 05/28. Patient seen and examined. General surgery are planning EGD today. Breathing has improved. Denies any chest pain. Vital signs stable lab work done showed WBC 9.29, hemoglobin 9.2, platelet count 131, sodium 133, potassium 5.6 05/29. Patient seen and examined. 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 Patient seen examined. Patient scheduled for repeat EGD today. Patient potassium level was elevated at 5.5, ordered Lokelma. Still complaining of shortness of breath. 05/31. Patient seen and examined.Blood work done this morning showed WBC 10.4, hemoglobin is 12.2, platelet count is 149,. Sodium 137 potassium 5.3, BUN 35.8, creatinine 0.7. Patient complaining of generalized weakness. Appetite has improved. PT and OT recommend rehab, REVIEW OF SYSTEMS: CONSTITUTIONAL: No fever, no malaise,. CARDIOVASCULAR: No chest pain, no palpitations, no syncope. PULMONARY: As mentioned above GASTROINTESTINAL: No diarrhea, no nausea, no vomiting, no abdominal pain. NEUROLOGICAL: No headaches, no weakness, PHYSICAL EXAMINATION: GENERAL: The patient is alert and oriented x3, not in any acute distress. Well developed, well nourished. HEENT: Pupils are round and equally reacting to light. EOMI. No scleral icterus. No conjunctival pallor. Normocephalic, atraumatic. No pharyngeal erythema. No thyromegaly. CARDIOVASCULAR: S1 and S2 present. No murmurs, rubs, or gallops. PULMONARY: Coarse breath sound bilaterally, bilateral crackles audible ABDOMEN: Soft, nontender, nondistended, normoactive bowel sounds. No palpable organomegaly. MUSCULOSKELETAL: No joint swelling or deformity. EXTREMITIES: No cyanosis, clubbing, or pedal edema. NEUROLOGICAL: Gross neurological examination did not reveal any focal deficits. SKIN: No rashes. Assessment and plan New onset atrial fibrillation with rapid ventricular rate Diffuse subpleural nodularity along the right sided lung fissures correlate for interval neoplastic disease progression. Mediastinal lymphadenopathy. Patient is s/p bronchoscopy and endobronchial ultrasound with needle biopsy on 05/24/2023. Acute hypoxic respiratory failure status post bronchoscopy. Right upper lobe masslike consolidation measuring 4.0 cm in addition to extensive mediastinal lymphadenopathy involving the paratracheal, right hilar and suprahilar area Recent admission with acute hypoxic respiratory failure status post right thoracentesis. fluid cytology negative for malignancy. Chronic CHF with systolic dysfunction ejection fraction 25 to 30%, mid to distal inferolateral and lateral wall hypokinesis and inferior apical wall hypokinesis. Ischemic cardiomyopathy Hyperkalemia Dysphagia Coronary artery disease with prior history of quadruple CABG in 2009 Hypertension Diabetes type 2 [id number] Hyperlipidemia Rheumatoid arthritis not on any treatment currently. Hypothyroidism. Patient has elevated free T4 level. Levothyroxine dose reduced to 125 mcg daily. History of non-Hodgkin's lymphoma status postchemotherapy. Currently in remission. Monitor vital signs Monitor CBC Monitor CMP Continue telemetry monitoring Encourage use of incentive spirometer Continue amiodarone twice daily Continue Eliquis Continue oral Lasix Follow-up biopsy of the mediastinal lymph node. 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 Nephrology following. Consulted hematology oncology for for right sided lung nodularity, right upper lobe mass and lymphadenopathy Labs and medication were reviewed.. Continue same treatment. Continue with symptomatic treatment. Resume home medication. Monitor labs and vitals. DVT and GI prophylaxis. Further recommendations as per clinical course of the patient Dictation was produced using [employer] dictation software. please excuse any grammatical, word or spelling errors. Objective - Vital Signs Vital signs: Vital Signs Temp 97.9 F 06/01/23 08:00 Pulse 76 06/01/23 08:00 Resp 18 06/01/23 08:00 BP 108/68 06/01/23 08:00 Pulse Ox 92 L 06/01/23 01:25 FiO2 Intake & Output 05/31/23 06/01/23 06/01/23 18:59 06:59 18:59 Intake Total 50 Output Total 2150 Balance 50 -2150 Intake: IV 50 Output: Urine 2150 Other: Voiding Method Toilet Toilet - Labs CBC & Chem 7: 06/01/23 06:05 06/01/23 06:05 Labs: Abnormal Lab Results - Last 24 Hours (Table) 05/31/23 05/31/23 05/31/23 Range/Units 08:09 11:46 14:02 WBC (4.50-10.00) X 10*3/uL RBC (4.10-5.20) X 10*6/uL MCHC (32.0-37.0) g/dL RDW (11.5-14.5) % Eosinophils # (0.04-0.35) X 10*3/uL Sodium 132 L (137-145) mmol/L Potassium 5.5 H 5.4 H (3.5-5.1) mmol/L BUN 40 H (7-17) mg/dL Glucose 108 H (74-99) mg/dL POC Glucose (mg/dL) 165 H (70-110) mg/dL Calcium 10.6 H (8.4-10.2) mg/dL Total Protein (PEP) (6.2-8.2) g/dL 05/31/23 05/31/23 05/31/23 Range/Units 14:02 16:41 19:14 WBC (4.50-10.00) X 10*3/uL RBC (4.10-5.20) X 10*6/uL MCHC (32.0-37.0) g/dL RDW (11.5-14.5) % Eosinophils # (0.04-0.35) X 10*3/uL Sodium (137-145) mmol/L Potassium 5.3 H (3.5-5.1) mmol/L BUN (7-17) mg/dL Glucose (74-99) mg/dL POC Glucose (mg/dL) 111 H (70-110) mg/dL Calcium (8.4-10.2) mg/dL Total Protein (PEP) 5.5 L (6.2-8.2) g/dL 06/01/23 Range/Units 06:05 WBC 10.40 H (4.50-10.00) X 10*3/uL RBC 4.04 L (4.10-5.20) X 10*6/uL MCHC 31.4 L (32.0-37.0) g/dL RDW 15.7 H (11.5-14.5) % Eosinophils # 0.61 H (0.04-0.35) X 10*3/uL Sodium (137-145) mmol/L Potassium (3.5-5.1) mmol/L BUN (7-17) mg/dL Glucose (74-99) mg/dL POC Glucose (mg/dL) (70-110) mg/dL Calcium (8.4-10.2) mg/dL Total Protein (PEP) (6.2-8.2) g/dL
--- NOTE | 2023-06-01 15:43 | P.PN ---
Subjective Progress Note Date: 06/01/23 This is a 82-year-old female patient was suspected to have malignancy. The patient has been having progressive worsening in her health status in general. She has not been eating. She has been extremely weak and debilitated. She was in the hospital approximately a month ago and at that time she came in with acute hypoxic respiratory failure and the patient was initially supported with BiPAP and subsequently was found to have a right-sided pleural effusion. I performed a bedside thoracentesis on this patient and a total of 1.6 L of fluid was aspirated and fluid cytology was negative for malignancy. Echocardiogram showed impaired LV function with an EF of around 25 to 30% and there was some mid to distal anterolateral wall hypokinesis and apical hypokinesis. The patient also had mild to moderate aortic valve calcification without any stenosis. She is subsequent CAT scan of the chest showed a loculated moderate- sized right-sided pleural effusion and irregular pleural wall thickening and the rind throughout the right hemithorax up to 1.3 cm in size and there was also what seems to be right upper lobe mass with extension into the mediastinum in addition to lymphadenopathy within the right hilum measuring around 2.3 cm in size and right suprahilar measuring 1.9 cm in size and in the subcarinal area in addition. There was a mass in the right upper lobe that is pleural-based opacity measuring 4.0 cm in size. Of significance was extensive pleural surface irregularity and nodular structures and this was obviously a manifestation of a neoplastic process and the concern was adenocarcinoma versus mesothelioma versus lymphoma as the patient is known to have a previous history of lymphoma. This was explained to the patient and the family members at length. Family was adamant in establishing a diagnosis. Based on that, the patient was brought in today patient underwent an endobronchial ultrasound under general anesthesia. I did not biopsy the right upper lobe mass. I was going more conservative because of her medical problems and I ended up doing a transbronchial needle aspirate of station 10 R and station 7 lymph nodes. Note that following her procedure, the patient was extubated and she got transferred to recovery where she went into A- fib RVR. I ordered Cardizem drip and this was not started and by the time she was about to start the Cardizem she converted to normal sinus rhythm. I discussed the findings with the family. The family told me that the patient's condition was progressively getting worse and she was not eating and they were very much concerned about her health in general and they wanted to keep her in the hospital. As such, the patient will be hospitalized to telemetry unit. She is known to have a left atrial ejection fraction of 25%. She is also known to have history of rheumatoid arthritis and she is currently off Remicade. She has diabetes mellitus type 2, coronary artery disease, hyperlipidemia, hyperlipidemia, remote history of non-Hodgkin's lymphoma. On today's evaluation of 05/25/2023, the patient is stable on 4L of oxygen by nasal cannula. Her cardiac rhythm is back to sinus. She is started on anticoagulation and she is currently on Eliquis. She is also on Lasix 20 mg p.o. daily. She is on Coreg 6.25 mg twice a day. Denies having any new complaints. The white cell count 11 with a hemoglobin 12.7 and a platelet count of 151. Sodium is at 136, BUN is at 59 with a creatinine of 0.7 and a potassium level is at 5.4. Thyroid function test shows a TSH free of 3.66 with a free T4 of 0.276. The patient remains on levothyroxine at 125 mcg p.o. daily. The dose of the thyroid has been modified and the patient has been just from 200 mcg on 225. On today's evaluation of 05/26/2023, the patient is resting comfortably in bed. No specific complaints. She is lethargic and weak. She remains on 40s of oxygen by nasal cannula with a pulse ox of 94%. Results of the biopsy are still pending for now. The patient has no significant complaints. The patient has chest wall pain on the right. This is an ongoing chronic problem dated 2 abnormalities that were described earlier. The patient is currently in normal sinus mechanism. The patient's thyroid dose has been i adjusted by the medical group. Manager Cardiac Cath also on the case. On today's evaluation of 05/27/2023, the patient is resting comfortably in bed. No specific complaints. Awaiting the results of the biopsy. WBC count is at 10.5 and hemoglobin 12 .7 and a platelet count of 135. The rest of the blood work shows a BUN of 62 with a creatinine of 1.09 and sodium levels at 131 with a potassium level of 5.8. The patient's is resting comfortably in bed. No other issues for now. She is complaining of pain along the right lateral chest area. She remains on anticoagulation with Eliquis 5 mg p.o. twice a day. She remains on her routine outpatient medications. Surgical consultation for dysphagia was done. Patient will be given an upper GI esophagogram and further workup regarding this dysphagia will be done depending on the results of the endobronchial ultrasound biopsies from the mediastinum. Highly suspicious for malignancy as mentioned. On today's evaluation of 05/28/2023, the patient resting comfortably in bed. No change in her condition. Awaiting final pathology from the biopsies and she should this should be available by Monday. Meanwhile, the patient has no specific complaints. She remains on 4 L with a pulse ox of 95%. Resting comfortably in bed. Pain remains unchanged. The patient is seen today May 29, 2023 in follow-up on the regular medical floor. She was initially here for an elective lung biopsy on May 24, 2023 but developed atrial fibrillation with a rapid ventricular response in the recovery room. She has been initiated on amiodarone. Anticoagulated with Eliquis. Pathology is still pending. She is maintaining O2 saturations in the 90s on 4 L/min per nasal cannula. She did undergo EGD today due to her dysphagia, unintentional weight loss and anticoagulant use. 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 White count 9.2. Hemoglobin 11.2. Platelets 131. Sodium 133. Potassium 5.6. Bicarb 24. BUN 44. Creatinine 0.8. Glucose 90. Patient was reevaluated today on 05/30/2023, pulmonary dos santos the patient is doing great, however she has GI issues being addressed by general surgery on the case. EGD on 05/28 showed AV malformation of the stomach surgery is still recommending holding anticoagulation until they do EGD dilatation which is scheduled for 05/05. Pulmonary dos santos no cough no wheezing no shortness of breath. And her atrial fibrillation seems to be relatively under control patient remains on 4 L nasal cannula with O2 sats of 96%, blood pressure 107/64, and A-fib seems to be controlled The patient is seen today May 31, 2023 in follow-up on the regular medical floor. She is awake and alert in no acute distress. She did undergo repeat EGD with rigid dilator for esophageal dilatation. Blood thinner Eliquis will be held for 48 hours. Ground diet recommended. Sodium 132. Potassium 5.5. Bicarb 22. BUN 40. Creatinine 0.78. Glucose 108. She remains on amiodarone. Continued on diuretics. Continued on Protonix. The patient is seen today June 01, 2023 in follow-up on the regular medical floor. She is resting comfortably in bed. Awake and alert in no acute distress. Maintaining O2 saturations in the 90s on 4 L/min per nasal cannula. White count 10.4. Hemoglobin 12.2. Platelets 149. Sodium 136. Potassium 5.3. Bicarb 24. BUN 36. Creatinine 0.7. Glucose 98. Initial pathology from fine- needle aspirate of the mediastinal lymph nodes revealed positive for malignant neoplasm however final results have been sent out to the [facility] and are pending. Objective - Vital Signs Vital signs: Vital Signs Temp 97.7 F 06/01/23 14:00 Pulse 66 06/01/23 14:55 Resp 17 06/01/23 14:00 BP 81/46 06/01/23 14:55 Pulse Ox 95 06/01/23 14:00 FiO2 Intake & Output 05/31/23 06/01/23 06/01/23 18:59 06:59 18:59 Intake Total 50 Output Total 2150 Balance 50 -2150 Weight 79.3 kg Intake: IV 50 Output: Urine 2150 Other: Voiding Method Toilet Toilet - Exam GENERAL EXAM: Alert, oriented 82-year-old female, sitting comfortably in bed, on 4 L nasal cannula, in no apparent distress. HEAD: Normocephalic. EYES: Normal reaction of pupils, equal size. NOSE: Clear with pink turbinates. THROAT: No erythema or exudates. NECK: No masses, no JVD. CHEST: No chest wall deformity. LUNGS: Equal air entry with few scattered rhonchi. CVS: S1 and S2 normal with no audible murmur, regular rhythm. ABDOMEN: No hepatosplenomegaly, normal bowel sounds, no guarding or rigidity. SPINE: No scoliosis or deformity SKIN: No rashes CENTRAL NERVOUS SYSTEM: No focal deficits, tone is normal in all 4 extremities. EXTREMITIES: There is no peripheral edema. No clubbing, no cyanosis. Peripheral pulses are intact. - Labs CBC & Chem 7: 06/01/23 06:05 06/01/23 06:05 Labs: Abnormal Lab Results - Last 24 Hours (Table) 05/31/23 05/31/23 05/31/23 Range/Units 14:02 14:02 14:02 WBC (4.50-10.00) X 10*3/uL RBC (4.10-5.20) X 10*6/uL MCHC (32.0-37.0) g/dL RDW (11.5-14.5) % Eosinophils # (0.04-0.35) X 10*3/uL Potassium 5.4 H (3.5-5.1) mmol/L BUN (9.0-27.0) mg/dL BUN/Creatinine Ratio (12.00-20.00) Ratio POC Glucose (mg/dL) (70-110) mg/dL Calcium (8.7-10.3) mg/dL Total Protein (6.2-8.2) g/dL Total Protein (PEP) 5.5 L (6.2-8.2) g/dL Albumin (3.8-4.9) g/dL Albumin/Globulin Ratio (1.60-3.17) Ratio Angiotensin Convert Enz 5 L (8-52) U/L 05/31/23 05/31/23 06/01/23 Range/Units 16:41 19:14 06:05 WBC (4.50-10.00) X 10*3/uL RBC (4.10-5.20) X 10*6/uL MCHC (32.0-37.0) g/dL RDW (11.5-14.5) % Eosinophils # (0.04-0.35) X 10*3/uL Potassium 5.3 H (3.5-5.1) mmol/L BUN 35.8 H (9.0-27.0) mg/dL BUN/Creatinine Ratio 51.14 H (12.00-20.00) Ratio POC Glucose (mg/dL) 111 H (70-110) mg/dL Calcium 10.6 H (8.7-10.3) mg/dL Total Protein 4.9 L (6.2-8.2) g/dL Total Protein (PEP) (6.2-8.2) g/dL Albumin 2.8 L (3.8-4.9) g/dL Albumin/Globulin Ratio 1.33 L (1.60-3.17) Ratio Angiotensin Convert Enz (8-52) U/L 06/01/23 Range/Units 06:05 WBC 10.40 H (4.50-10.00) X 10*3/uL RBC 4.04 L (4.10-5.20) X 10*6/uL MCHC 31.4 L (32.0-37.0) g/dL RDW 15.7 H (11.5-14.5) % Eosinophils # 0.61 H (0.04-0.35) X 10*3/uL Potassium (3.5-5.1) mmol/L BUN (9.0-27.0) mg/dL BUN/Creatinine Ratio (12.00-20.00) Ratio POC Glucose (mg/dL) (70-110) mg/dL Calcium (8.7-10.3) mg/dL Total Protein (6.2-8.2) g/dL Total Protein (PEP) (6.2-8.2) g/dL Albumin (3.8-4.9) g/dL Albumin/Globulin Ratio (1.60-3.17) Ratio Angiotensin Convert Enz (8-52) U/L Assessment and Plan Assessment: New onset atrial fibrillation with RVR, converted to normal sinus rhythm and the patient Is currently hemodynamically stable. Patient is currently on Cordarone and Coreg. Anticoagulation with Eliquis. Thyroid levels were elevated and the free T4 was high and accordingly the Synthroid dose was dropped down to 125 mcg on a daily basis. The patient remains in normal sinus mechanism for now Acute hypoxic respiratory failure post bronchoscopy May 24 2023 and the patient is currently on 4 L of oxygen by nasal cannula the flow to be titrated to maintain saturation above 90%. Chest x-ray findings are stable and is consistent with a right upper lobe mass, pleural thickening and loculated right- sided pleural effusion She did undergo EGD today May 29, 2023 due to her dysphagia, unintentional weight loss and anticoagulant use. 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 She did undergo follow-up EGD today May 31, 2023 for esophageal dilatation. Eliquis to remain on hold x 48 hours. Right upper lobe masslike consolidation measuring 4.0 cm in addition to extensive mediastinal lymphadenopathy involving the paratracheal, right hilar and suprahilar area and the patient has significant pleural surface irregularities and multiloculated right-sided pleural effusions. Possibilities include adenocarcinoma of the lung, mesothelioma, and lymphoma. Note that the pleural surface is quite thickened and is reaching approximately 1.3 cm with significant irregularities and previous thoracentesis yielded no final pathology diagnosis. Nevertheless, the findings are highly suspicious for malignancy. Patient and the family was made aware. She has a poor baseline performance and functional status. She may not be a candidate for any treatment if the diagnosis of malignancy established. Nevertheless, patient and family are highly interested in establishing a final diagnosis and she did undergo an endobronchial ultrasound and biopsy of the mediastinal lymph nodes on May 24, 2023. Cytology is positive for malignancy however final diagnosis is pending from [facility] Mediastinal lymphadenopathy detail discussed above, awaiting final pathology postbiopsy Chest wall pain with an irregular pleural surface border with multiple nodularities and secondary pain. This is likely malignant process. Rule out mesothelioma versus adenocarcinoma versus lymphoma. Offered nonsteroidal anti- inflammatory medications for pain control. Pleural effusion with previous thoracentesis removed approximately 1.6 to 2 L of pleural fluid from the right lung. The fluid was exudative. The fluid cytology came back negative for malignancy Coronary arteriosclerosis - She is post CABG Chronic systolic heart failure diagnosed by an echocardiogram that was done and the patient has ejection fraction of 25% and she has some edema in lower extremities and she is seeing cardiology and she is currently on diuretics and she is taking Lasix at a dose of 40 mg once a day Non-Hodgkin's lymphoma (clinical) She is in remission and she was diagnosed in 2013 and she has completed the chemotherapy . This involved the jaw and the head and neck Type 2 diabetes mellitus Maintained on Metformin and glyburide Rheumatoid arthritis On no treatment and she is off Ramicade Medical debility along with weight loss and diminished appetite and failure to thrive Plan: The patient was seen and evaluated Labs and medications reviewed Continue the current treatment plan S/p endoscopy with mediastinal lymph node biopsy Pathology is positive for malignancy however final diagnosis pending from [facility] We will continue to follow I have personally seen and examined the patient, performed the documentation and the assessment and plan as written. Number of minutes spent on the visit: 10.
[2023-06-01] MEDS: ZOLEDRONIC ACID 4 MG in SODIUM CHLORIDE 0.9% 100 ML IV ONE (15:59)
[2023-06-01 16:33] LABS: Glucose,Whole Blood 95 mg/dL (70-110)
[2023-06-01 17:24] LABS: Albumin 2.68 g/dL (3.80-4.90); Gamma Globulin 0.87 g/dL (0.70-1.50)
[2023-06-01] MEDS: SODIUM CHLORIDE 0.9% 1,000 ML IV ONE (17:41)
[2023-06-01 18:51] LABS: Vitamin D, 1, 25-Dihydroxy 50 pg/mL (20 - 79)
--- NOTE | 2023-06-01 20:03 | XR ---
EXAMINATION TYPE: XR chest 1V DATE OF EXAM: 06/01/2023 6:31 PM CLINICAL INDICATION:Female, 82 years old with history of low BP, concern for possible infection; H COMPARISON: 05/24/2023 and before TECHNIQUE: XR chest 1V Portable AP radiograph of the chest.. FINDINGS: Lines/Tubes/Devices: EKG leads overlie the chest. No indwelling lines are seen. Heart/mediastinum: Heart size is indeterminate. Mediastinum obscured along its right side. Aortic krissy cifications. Pulmonary vascularity: Not increased, Lungs/Pleura: Left lung is essentially stable without evidence of consolidation, effusion, or pneumot horax. On the right, there is worsening opacity with a near complete whiteout appearance of the right chest. Minimal residual aeration in the right mid to upper lung zones. Musculoskeletal: No acute osseous abnormality demonstrated in the limits of the exam. Several right ribs are obscured. Other findings: Multiple sternotomy wires and left atrial appendage occlusion device. IMPRESSION: Worsening opacity on the right, with near complete white out appearance of the right hemithorax.
[2023-06-01] MEDS: SODIUM CHLORIDE 0.9% 1,000 ML IV SCH (20:12)
[2023-06-01] MEDS: CEFEPIME 2 GM in SODIUM CHLORIDE 0.9% 100 ML IVPB SCH (20:13)
[2023-06-01 20:17] LABS: Glucose,Whole Blood 103 mg/dL (70-110)
[2023-06-01] MEDS ORDERED: RX INFO: IV CONTRAST WAS GIVEN 1 EACH MISC MISCELLANE PRN (21:01)
[2023-06-02 02:26] LABS: African American GFR (CKD) 63 (>60 ml/min/1.73 sqM); Anion Gap 3 mmol/L; Blood Urea Nitrogen 45 mg/dL (7-17); Calcium 9.7 mg/dL (8.4-10.2); Carbon Dioxide 25 mmol/L (22-30); Chloride 103 mmol/L (98-107); Glucose 83 mg/dL (74-99); Magnesium 1.6 mg/dL (1.6-2.3); Non-African American GFR(CKD) 54 (>60 ml/min/1.73 sqM); Potassium 5.1 mmol/L (3.5-5.1); Sodium 131 mmol/L (137-145)
[2023-06-02 05:51] LABS: Glucose,Whole Blood 93 mg/dL (70-110)
--- NOTE | 2023-06-02 08:34 | P.PN ---
Subjective Progress Note Date: 06/02/23 CHIEF COMPLAINT: Dysphagia HISTORY OF PRESENT ILLNESS: The patient is a 82-year-old female admitted to the hospital with atrial fibrillation RVR now controlled, dysphagia. She is status post upper endoscopy with rigid dilation yesterday. She reports improvement of her sore throat and swallowing. No recent blood in stools. Per discussion with her nurse, patient has new lactic acidosis. Patient has been managed for persistent hyperkalemia. ROS: No reports of nausea and vomiting. No fevers or chills. No new chest pain. Has productive sputum due to exacerbation of congestive heart failure and chronic struct of pulmonary disease PHYSICAL EXAM: VITAL SIGNS: Reviewed CONSTITUTIONAL: Well developed and in no acute distress. EYES: Conjuctivae without sclera icterus. Extraocular movements grossly intact. HEAD, EARS, NOSE, THROAT: Moist buccal mucosa. Head is atraumatic, normocephalic. Hears conversational speech. No nasal drainage. RESPIRATORY: Non-labored respirations and equal bilateral excursions. CARDIOVASCULAR: Palpable 2+ radial pulses. ABDOMEN: Nontender. MUSCULOSKELETAL: No gross deformity of the lower extremities noted. No clubbing. No cyanosis. SKIN: Good skin turgor. Well perfused. NEUROLOGIC: Cranial nerves II through XII grossly intact. No focal or laterali zing signs. PSYCH: Alert and oriented to person CLINICAL LABS: Reviewed. WBC elevated 10.4 from 9.2, leukocytosis. Hemoglobin stable 12.0-12.2. Potassium 5.3 down from 6.0. ASSESSMENT: 1. Dysphagia due to upper esophageal stenosis 2. Unintentional weight loss due to dysphagia 3. New onset atrial fibrillation with rapid ventricular response, controlled 4. Persistent hyperkalemia 5. Leukocytosis 6. Arteriovenous malformations of the stomach PLAN: 1. Recommend holding blood thinner at least 48 hours from procedure. May resume blood thinner tomorrow 06/02/2023 2. Monitor hemoglobin as patient has arteriovenous malformations in the stomach with risk of bleeding. 3. Continue ground diet and may advance to regular diet pending clinical course Objective - Vital Signs Vital signs: Vital Signs Temp 98.0 F 06/02/23 07:55 Pulse 75 06/02/23 07:55 Resp 18 06/02/23 07:55 BP 113/64 06/02/23 07:55 Pulse Ox 91 L 03/29/24 07:55 FiO2 Intake & Output 06/01/23 06/02/23 06/02/23 18:59 06:59 18:59 Weight 79.3 kg Other: # Voids 2 1 # Bowel Movements 0 - Labs CBC & Chem 7: 06/01/23 06:05 06/02/23 02:05 Labs: Abnormal Lab Results - Last 24 Hours (Table) 05/31/23 05/31/23 06/01/23 Range/Units 14:02 14:02 06:05 WBC (4.50-10.00) X 10*3/uL RBC (4.10-5.20) X 10*6/uL MCHC (32.0-37.0) g/dL RDW (11.5-14.5) % Eosinophils # (0.04-0.35) X 10*3/uL Sodium (137-145) mmol/L BUN 35.8 H (9.0-27.0) mg/dL BUN/Creatinine Ratio 51.14 H (12.00-20.00) Ratio Plasma Lactic Acid Nic (0.7-2.0) mmol/L Calcium 10.6 H (8.7-10.3) mg/dL Total Protein 4.9 L (6.2-8.2) g/dL Albumin 2.8 L (3.8-4.9) g/dL Albumin (PEP) 2.68 L (3.80-4.90) g/dL Albumin/Globulin Ratio 1.33 L (1.60-3.17) Ratio Rjwtx-3-Yalappcif 0.50 H (0.10-0.40) g/dL Angiotensin Convert Enz 5 L (8-52) U/L PTH Intact (14.0-72.0) pg/mL 06/01/23 06/01/23 06/01/23 Range/Units 06:05 16:48 18:37 WBC 10.40 H (4.50-10.00) X 10*3/uL RBC 4.04 L (4.10-5.20) X 10*6/uL MCHC 31.4 L (32.0-37.0) g/dL RDW 15.7 H (11.5-14.5) % Eosinophils # 0.61 H (0.04-0.35) X 10*3/uL Sodium (137-145) mmol/L BUN (9.0-27.0) mg/dL BUN/Creatinine Ratio (12.00-20.00) Ratio Plasma Lactic Acid Nic 4.5 H* (0.7-2.0) mmol/L Calcium (8.7-10.3) mg/dL Total Protein (6.2-8.2) g/dL Albumin (3.8-4.9) g/dL Albumin (PEP) (3.80-4.90) g/dL Albumin/Globulin Ratio (1.60-3.17) Ratio Mphum-0-Sxdbtzeiu (0.10-0.40) g/dL Angiotensin Convert Enz (8-52) U/L PTH Intact 5.1 L (14.0-72.0) pg/mL 06/01/23 06/02/23 06/02/23 Range/Units 22:03 02:05 02:05 WBC (4.50-10.00) X 10*3/uL RBC (4.10-5.20) X 10*6/uL MCHC (32.0-37.0) g/dL RDW (11.5-14.5) % Eosinophils # (0.04-0.35) X 10*3/uL Sodium 131 L (137-145) mmol/L BUN 45 H (9.0-27.0) mg/dL BUN/Creatinine Ratio (12.00-20.00) Ratio Plasma Lactic Acid Nic 3.9 H* 2.6 H* (0.7-2.0) mmol/L Calcium (8.7-10.3) mg/dL Total Protein (6.2-8.2) g/dL Albumin (3.8-4.9) g/dL Albumin (PEP) (3.80-4.90) g/dL Albumin/Globulin Ratio (1.60-3.17) Ratio Kjzyw-0-Dqpdceffb (0.10-0.40) g/dL Angiotensin Convert Enz (8-52) U/L PTH Intact (14.0-72.0) pg/mL 06/02/23 Range/Units 05:16 WBC (4.50-10.00) X 10*3/uL RBC (4.10-5.20) X 10*6/uL MCHC (32.0-37.0) g/dL RDW (11.5-14.5) % Eosinophils # (0.04-0.35) X 10*3/uL Sodium (137-145) mmol/L BUN (9.0-27.0) mg/dL BUN/Creatinine Ratio (12.00-20.00) Ratio Plasma Lactic Acid Nic 2.8 H* (0.7-2.0) mmol/L Calcium (8.7-10.3) mg/dL Total Protein (6.2-8.2) g/dL Albumin (3.8-4.9) g/dL Albumin (PEP) (3.80-4.90) g/dL Albumin/Globulin Ratio (1.60-3.17) Ratio Tikup-1-Amoevvidx (0.10-0.40) g/dL Angiotensin Convert Enz (8-52) U/L PTH Intact (14.0-72.0) pg/mL
--- NOTE | 2023-06-02 09:06 | P.CONS ---
History of Present Illness - Reason for Consult Consult date: 06/01/23 lung mass Requesting physician: Flaco Winter - Chief Complaint afib rvr, CARMITA - History of Present Illness Ms Quiros is a 82 year old female with a history of Rheumatoid Arthritis, for which she was on Remicade in the past and diffuse large B cell lymphoma. She has been treated by Dr. Gandhi in the past, but has not followed up since 2019. Her platelet counts were persistently low, in the 60-56208 range. A bone marrow aspiration and biopsy was done in 08/16, compatible with peripheral destruction ( ITP). She was thus started on low dose Prednisone at 7.5 mg/day, with stabi lization, and some increase in her plt count ( into the 80-43492 range). In 03/18 , she noted a mass involving the right posterior cheek area. She was seen by her PCP in 05/17, and noted to have B/L parotid masses, R>L. A PET scan in 07/16 confirmed uptake in both parotids. She underwent an excisional biopsy on the right on 08/07/12,revealing Diffuse Large B Cell Lymphoma. She was staged as IIE, and was treated with 6 cycles of R-CHOP, completing that in 03/19. PET scan in 03/19 showing a complete response. She moved to [place] from [facility] in the spring, and was seen here to establish care. Restaging scans and labs were ordered in 09/16. These were negative for any evidence of recurrence. The pt also weaned herself off the prednisone. She was then placed on surveillance. She had cataract surgery b/l in early 12/18. She had a visit to the hospital in 11/18 for low sodium, due to a medication side effect. Her restaging scans in 12/19 showed possible progression of a RUL nodule. Short term f/u Ct chest in 02/18 showed no change, and actually possible regression. She had noted a nodule on her rt elbow since early 06/20. This has not changed in size and is non tender. She was referred for a biopsy, but imaging revealed no orlin or solid tissue. She continued in observation and was clinically stable and her CT scans showed no evidence of recurrence. She has completed 5 yrs of observation after finishing her chemo. Thus routine scanning and f/u from the NHL standpoint is not recommended, given very low risk of recurrence going forward. She was educated about the increased risk of new primary lymphomas, as well as the low risk of computer terminal operator bone marrow damage , including acute leukemias. She was recommended to f/u with her PCP and should continue to have routine CBCs and l abs, along with physical exams with her PCP Patient was admitted for bronchoscopy/EBUS for biopsy of noted mediastinal lymph nodes and had procedure on 05/24/[address] Parsons. Per procedure note, mediastinal lymph nodes revealed a 9.5x16 mm station 10 R lymph node, a 7x10 mm station 7 lymph nodes. Biopsies were obtained, and path is still currently pending. Patient did have a-fib with RVR postop and was started on cardizem drip. Patient states she has been experiencing dysphagia for the last couple months. Along with an approximate 30 pound weight loss with associated decreased appetite. Reporting shortness of breath which has increased over the last 1 week s/p bronchoscopy. Denies hemoptysis. Denies fever and chills. CT chest obtained on 05/03/2023 revealed decreasing but residual moderate right pleural effusion. With worsening irregular pleural thickening/rind throughout the right hemithorax now measuring up to 1.3 cm thick versus 1.0 cm previously. Focal subpleural soft tissue anterior medial right lower lung measuring up to 3.3 cm. New diffuse subpleural nodularity along the right sided lung fissures. Pleural fluid cytoloy obtained on 04/15/23 was negative for malignancy. CBC revealed WBC 10.4, hemoglobin 12.2, platelets 149,000. Creatinine 0.7, GFR 86. Bilirubin and LFTs normal. Calcium elevated at 10.6, dose of Zometa has been ordered. SpO2 95% on 4 L nasal cannula, patient afebrile. Review of Systems 10 point ROS is negative except as stated in the HPI Past Medical History Past Medical History: Coronary Artery Disease (CAD), Cancer, Chest Pain / Angina, Heart Failure, Diabetes Mellitus, Hyperlipidemia, Hypertension, Myocardial Infarction (DC), Osteoarthritis (OA), Respiratory Disorder, Rheumatoid Arthritis (RA), Thyroid Disorder Additional Past Medical History / Comment(s): 04/2023 admitted to [facility] with acute hypoxic respiratory failure/R parapneumonic effusio/had thoracentesis/chf/NSTEMI. Other hx: Abnormal cat scan of chest, SOB at all times and weak, appetite very poor so taken off diabetic medications, hypothyroidism, neuropathy, 2013 lymphoma both sides of jaw/surgery one side/chemotherapy Last Myocardial Infarction Date:: 04/2023 History of Any Multi-Drug Resistant Organisms: None Reported Past Surgical History: Coronary Bypass/CABG, Heart Catheterization, Hyster ectomy, Orthopedic Surgery Additional Past Surgical History / Comment(s): Partial thyroidectomy, 2009 CABG 4 vessel, R side jaw/neck surgery, bilateral carpal tunnel release Past Anesthesia/Blood Transfusion Reactions: No Reported Reaction Smoking Status: Former smoker - Past Family History Father History Unknown: Yes Family Medical History: Cancer Additional Family Medical History / Comment(s): at 59 from cancer. Mother History Unknown: Yes Family Medical History: Myocardial Infarction (DC) Additional Family Medical History / Comment(s): of DC at 55yrs. Medications and Allergies Home Medications Medication Instructions Recorded Confirmed Type Aspirin EC [Ecotrin Low Dose] 81 mg PO QAM 04/14/23 05/24/23 History Cholecalciferol [Vitamin D3 (25 25 mcg PO QAM 04/14/23 05/24/23 History Mcg = 1000 Iu)] Cyanocobalamin (Vitamin B-12) 1,000 mcg PO QAM 04/14/23 05/24/23 History [Vitamin B-12] Ferrous Sulfate [Iron (65 MG 325 mg PO QAM 04/14/23 05/24/23 History Elemental)] Levothyroxine Sodium [Synthroid] 200 mcg PO QAM 04/14/23 05/24/23 History Omeprazole 40 mg PO QAM 04/14/23 05/24/23 History Simvastatin [Zocor] 20 mg PO HS 04/14/23 05/24/23 History carvediloL [Coreg] 6.25 mg PO BID 04/14/23 05/24/23 History lisinopriL 40 mg PO QAM 04/14/23 05/24/23 History Furosemide [Lasix] 20 mg PO QAM 05/23/23 05/24/23 History Ibuprofen 600 mg PO Q8H PRN 05/23/23 05/24/23 History Isosorbide Mononitrate ER [Imdur] 30 mg PO QAM 05/23/23 05/24/23 History Allergies Allergy/AdvReac Type Severity Reaction Status Date / Time atorvastatin [From Lipitor] Allergy Swelling Verified 05/24/23 13:19 bisacodyl Allergy Rash/Hives Verified 05/24/23 13:19 [From Dulcolax (bisacodyl)] carisoprodol [From Soma] Allergy Unknown Verified 05/24/23 13:19 morphine Allergy Vomiting Verified 05/24/23 13:19 orphenadrine Allergy Unknown Verified 05/24/23 13:19 pseudoephedrine Allergy Rash/Hives Verified 05/24/23 13:19 [From Sudafed] tramadol [From Ultram] Allergy Unknown Verified 05/24/23 13:19 Physical Exam Vitals: Vital Signs Temp Pulse Pulse Resp BP BP Pulse Ox 06/01/23 08:00 97.9 F 76 18 108/68 06/01/23 04:00 106/61 06/01/23 01:25 98.9 F 69 18 92 L 06/01/23 00:55 98.3 F 68 18 94/55 92 L 05/31/23 21:00 18 05/31/23 20:00 98.6 F 75 13 89/48 91 L 05/31/23 19:57 91/58 05/31/23 15:08 98 F 16 82/50 94 L Intake and Output 05/31/23 06/01/23 06/01/23 22:59 06:59 14:59 Output Total 150 2000 Balance -150 -2000 Output: Urine 150 2000 Other: Voiding Method Toilet - Constitutional General appearance: average body habitus, no acute distress - EENT Eyes: anicteric sclerae, EOMI ENT: hearing grossly normal - Neck Neck: no lymphadenopathy - Respiratory Respiratory: right: diminished - Cardiovascular Rhythm: regular Heart sounds: normal: S1, S2 - Gastrointestinal General gastrointestinal: soft, no tenderness - Integumentary Integumentary: no cyanotic - Musculoskeletal Musculoskeletal: generalized weakness - Psychiatric Psychiatric: A&O x's 3 Results CBC & Chem 7: 06/01/23 06:05 06/02/23 02:05 Labs: Abnormal Lab Results - Last 24 Hours (Table) 05/31/23 05/31/23 05/31/23 Range/Units 14:02 14:02 14:02 WBC (4.50-10.00) X 10*3/uL RBC (4.10-5.20) X 10*6/uL MCHC (32.0-37.0) g/dL RDW (11.5-14.5) % Eosinophils # (0.04-0.35) X 10*3/uL Potassium 5.4 H (3.5-5.1) mmol/L BUN (9.0-27.0) mg/dL BUN/Creatinine Ratio (12.00-20.00) Ratio POC Glucose (mg/dL) (70-110) mg/dL Calcium (8.7-10.3) mg/dL Total Protein (6.2-8.2) g/dL Total Protein (PEP) 5.5 L (6.2-8.2) g/dL Albumin (3.8-4.9) g/dL Albumin/Globulin Ratio (1.60-3.17) Ratio Angiotensin Convert Enz 5 L (8-52) U/L 05/31/23 05/31/23 06/01/23 Range/Units 16:41 19:14 06:05 WBC (4.50-10.00) X 10*3/uL RBC (4.10-5.20) X 10*6/uL MCHC (32.0-37.0) g/dL RDW (11.5-14.5) % Eosinophils # (0.04-0.35) X 10*3/uL Potassium 5.3 H (3.5-5.1) mmol/L BUN 35.8 H (9.0-27.0) mg/dL BUN/Creatinine Ratio 51.14 H (12.00-20.00) Ratio POC Glucose (mg/dL) 111 H (70-110) mg/dL Calcium 10.6 H (8.7-10.3) mg/dL Total Protein 4.9 L (6.2-8.2) g/dL Total Protein (PEP) (6.2-8.2) g/dL Albumin 2.8 L (3.8-4.9) g/dL Albumin/Globulin Ratio 1.33 L (1.60-3.17) Ratio Angiotensin Convert Enz (8-52) U/L 06/01/23 Range/Units 06:05 WBC 10.40 H (4.50-10.00) X 10*3/uL RBC 4.04 L (4.10-5.20) X 10*6/uL MCHC 31.4 L (32.0-37.0) g/dL RDW 15.7 H (11.5-14.5) % Eosinophils # 0.61 H (0.04-0.35) X 10*3/uL Potassium (3.5-5.1) mmol/L BUN (9.0-27.0) mg/dL BUN/Creatinine Ratio (12.00-20.00) Ratio POC Glucose (mg/dL) (70-110) mg/dL Calcium (8.7-10.3) mg/dL Total Protein (6.2-8.2) g/dL Total Protein (PEP) (6.2-8.2) g/dL Albumin (3.8-4.9) g/dL Albumin/Globulin Ratio (1.60-3.17) Ratio Angiotensin Convert Enz (8-52) U/L Chest x-ray: report reviewed Assessment and Plan (1) Mediastinal lymphadenopathy Current Visit: Yes Status: Acute Priority: High Code(s): R59.0 - LOCALIZED ENLARGED LYMPH NODES SNOMED Code(s): 35901784 (2) Diffuse large B cell lymphoma Current Visit: No Status: Acute Priority: Medium Code(s): C83.30 - DIFFUSE LARGE B-CELL LYMPHOMA, UNSPECIFIED SITE SNOMED Code(s): 481380423 (3) Pleural effusion, right Current Visit: Yes Status: Acute Priority: High Code(s): J90 - PLEURAL EFFUSION, NOT ELSEWHERE CLASSIFIED SNOMED Code(s): 04052802 Plan: Mediastinal lymphadenopathy, soft tissue mass: Patient states she has been experiencing dysphagia for the last couple months. Along with an approximate 30 pound weight loss with associated decreased appetite. CT chest obtained on 05/03/2023 revealed decreasing but residual moderate right pleural effusion. With worsening irregular pleural thickening/rind throughout the right hemithorax now measuring up to 1.3 cm thick versus 1.0 cm previously. Focal subpleural soft tissue anterior medial right lower lung measuring up to 3.3 cm. New diffuse subpleural nodularity along the right sided lung fissures. Pleural fluid cytoloy on 04/15/23 was negative for malignancy. -Patient was admitted for bronchoscopy/EBUS for biopsy of noted mediastinal lymph nodes and had procedure on 05/24/[address] Parsons. Per procedure note, mediastinal lymph nodes revealed a 9.5x16 mm station 10 R lymph node, a 7x10 mm station 7 lymph nodes. Biopsies were obtained, path is still currently pending. -Discussed findings and concerns for malignancy with patient. Will await pathology report for further recommendations. Will obtain brain MRI and plan for PET CT outpt to complete staging -Clinic f/u will be scheduled with Dr. Gandhi upon discharge, pending course of hospitalization and possible need for rehab Afib RVR/SOB: -Went into a-fib RVR post op. Started on cardizem drip, and converted -Progressing SOB x 1 week. -Defer management to pulm and IM teams Hx Diffuse large B cell Lymphoma: -Full history in HPI. Was in observation with Dr. Gandhi with no noted recurrence of disease, last seen in 2019
[2023-06-02 11:28] LABS: Glucose,Whole Blood 119 mg/dL (70-110)
--- NOTE | 2023-06-02 11:45 | MR ---
EXAMINATION TYPE: MR brain wo/w con DATE OF EXAM: 06/02/2023 11:18 AM CLINICAL INDICATION:Female, 82 years old with history of lung mass, staging; PHH, Lung Mass, staging COMPARISON: None TECHNIQUE: Multi planar, multi sequence imaging was performed through the brain including: T1, T2, In version recovery, susceptibility weighted imaging and gradient echo imaging and Diffusion weighted im aging. The patient was then given intravenous contrast and multi planar, T1 fat-saturation images wer e obtained. IV Contrast: 8ml cc Gadavist FINDINGS: Mild cerebral atrophy with proportional dilation of ventricular system. Diffusion-weighted imaging s hows no evidence of restricted diffusion to suggest acute/subacute infarct. Intracranial arterial evan w voids are maintained. Midline structures show no abnormality. Scattered foci of high T2 signal inte nsity are seen within the periventricular white matter. The susceptibility weighted images do not rev eal any evidence for micro-hemorrhage. After administration of gadolinium, no abnormal enhancement is seen. The bone marrow signal is within normal limits. Paranasal sinuses and mastoid air cells: High T2 signal within the mastoid air cells bilaterally righ t greater left. Mucosal thickening of the right maxillary sinus. Visualized orbits: Bilaterally aphakia. IMPRESSION: 1. No evidence of intracranial mass, acute/subacute infarct, or abnormal enhancement. 2. Nonspecific white matter changes, likely related to small vessel ischemic disease. 3. Mild right maxillary sinus paranasal sinus disease. 4. Trace bilateral mastoid air cell effusions right greater than left.
--- NOTE | 2023-06-02 12:14 | CT ---
EXAMINATION TYPE: CT chest w con CT DLP: 304 mGycm, Automated exposure control for dose reduction was used. DATE OF EXAM: 06/02/2023 7:22 AM COMPARISON: Multiple CTs of the chest with most recent on 05/03/2023. CLINICAL INDICATION:Female, 82 years old with history of opacified rt lung; PHH, right lung opacifica tion TECHNIQUE: Multiple axial images were obtained through the chest. Sagittal and coronal reformats were created for review. Contrast used:75 mL of Isovue 300 with IV Contrast (None if empty) Oral contrast used: (None if empty) FINDINGS: LUNGS/ PLEURA: There is a moderate to large right pleural effusion with associated diffuse airspace o pacities throughout the right lung. Pleural thickening is seen throughout the right thorax. Masslike area in the right upper lung is poorly visualized due to airspace opacities duct measuring 40 x 39 mm on today's exam. Diffuse nodular thickening may be present involving the pleura. AIRWAY: Patent and unremarkable. HEART: Heart is mildly enlarged for size. There is moderate coronary artery atherosclerosis. MEDIASTI NUM: No gross evidence of adenopathy. VASCULATURE: No aortic aneurysm. MUSCULOSKELETAL: No acute osseous abnormalities SOFT TISSUES/LYMPH NODES: Unremarkable. LOWER NECK: No significant findings. UPPER ABDOMEN: No significant findings. IMPRESSION: 1. Diffuse airspace opacities in the right lung concerning for pneumonia. 2. Moderate right pleural effusion. 3. Right upper lung masslike area seen with pleural thickening suggested. The mass of the right uppe r lung appears increased in size from prior but is difficult given diffuse airspace process.
--- NOTE | 2023-06-02 12:50 | P.PN ---
Subjective Progress Note Date: 06/02/23 Patient is a 82-year-old female with a past medical history of coronary artery disease status post quadruple bypass in 2009 in [place], history of non- Hodgkin's lymphoma, hypertension, diabetes type 2, hyperlipidemia, history of MN, osteoarthritis, rheumatoid others, hypothyroidism. Patient was brought to the hospital for bronchoscopy with endoscopic ultrasound and DVT aspiration biopsy of the mediastinal lymph node.. Postprocedure while in the recovery room patient went into atrial fibrillation with rapid ventricular rate and heart rate went up to 130s. EKG showed atrial fibrillation with rapid ventricular rate. Cardizem drip was ordered but before starting the infusion patient converted back to sinus rhythm and heart rate came down to 70s. She was admitted to the hospital for further evaluation Patient was recently admitted to the hospital from 04/15/2023 to 04/21/2023. She is admitted due to worsening shortness of breath, requiring BiPAP. Patient was also found to have right-sided pleural effusion status post paracentesis showed reactive mesothelial cells, macrophages and mixed inflammatory cells. No c cytologically malignant cells identified. CT chest on 04/15/2023 showed large right-sided pleural effusion. Repeat CT on 05/07/2023 showed decreasing but residual moderate right pleural effusion, however there is worsening irregular dural thickening/throughout the right hemithorax now measuring up to 1.3 cm thick versus 1.0 cm previously. Focal subpleural soft tissue anteromedial right lower lung measures up to 3.3 cm and appears new. New diffuse subpleural nodularity along the right-sided lung fissures. Correlate for slight interval neoplastic disease present progression, possible lymphoma. Currently patient denies any complaints of chest pain. No worsening shortness of breath. Denies any palpitations. No nausea vomiting abdominal pain or diarrhea. Patient is on Ventimask which is being titrated down to nasal cannula oxygen. No complaints of fever or chills. No diarrhea. No cough or sputum production. Denies any worsening leg swelling recently. 05/25/2023 Patient is sitting on the side of the bed. Awake alert and oriented x 3. Complains of bloating and abdominal and not able to tolerate oral diet. No bowel movement today. Otherwise patient is having atrial fibrillation with RVR last night on and off. Was started on amiodarone drip and added anticoagulation with Eliquis as per cardiology recommendations. Patient was also found to have elevated free T4 level and low TSH level. Levothyroxine dose reduced to 125 mcg daily from 200 mcg which she takes at home. Otherwise patient has been afebrile. Requiring oxygen via nasal cannula. No c omplaints of chest pain. Does have exertional shortness of breath. Laboratory data showed Pulmonary and cardiology is on board. WBC 11.0 hemoglobin 12.7 platelets 151 Sodium 136 potassium 5.4 chloride 107 bicarb is 19 BUN 59 and creatinine 0.78 and blood sugar 165 TSH 0.276 and free T4 3.66. 05/26/2023 Patient is currently sitting on the side of the bed. Awake alert and oriented x 3. Feels weak and lethargic. Currently on oxygen at 4 L via nasal cannula. Otherwise heart rate is better controlled and amiodarone changed to p.o. Patient did have a swallow evaluation. Recommends EGD as per speech pathology. Otherwise patient has been afebrile. Blood pressure is marginal. Laboratory data reviewed. Cardiology and pulmonary is on board. 05/26. Patient seen and examined. Complaining of back pain. Currently on 3 L of oxygen. Gets short of breath on minimal exertion. Complaining of dysphagia 05/27. Patient seen and examined. Continues to be on 4 L of oxygen. 05/28. Patient seen and examined. General surgery are planning EGD today. Breathing has improved. Denies any chest pain. Vital signs stable lab work done showed WBC 9.29, hemoglobin 9.2, platelet count 131, sodium 133, potassium 5.6 05/29. Patient seen and examined. 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 Patient seen examined. Patient scheduled for repeat EGD today. Patient potassium level was elevated at 5.5, ordered Lokelma. Still complaining of shortness of breath. 05/31. Patient seen and examined.Blood work done this morning showed WBC 10.4, hemoglobin is 12.2, platelet count is 149,. Sodium 137 potassium 5.3, BUN 35.8, creatinine 0.7. Patient complaining of generalized weakness. Appetite has improved. PT and OT recommend rehab, 06/01. Patient seen and examined. Patient was seen by hematology oncology, they ordered MRI brain and outpatient PET scan. Chest x-ray done showed worsening opacity on the right with near complete whiteout appearance of the right hemothorax. CT chest done showed diffuse airspace opacity in the right lung concerning for pneumonia, moderate right pleural effusion, right upper lung masslike area seen in the pleural thickening suggested the mass of the right upper lung appears increased in size from prior. MRI brain negative for any mass or acute stroke. REVIEW OF SYSTEMS: CONSTITUTIONAL: No fever, no malaise,. CARDIOVASCULAR: No chest pain, no palpitations, no syncope. PULMONARY: As mentioned above GASTROINTESTINAL: No diarrhea, no nausea, no vomiting, no abdominal pain. NEUROLOGICAL: No headaches, no weakness, PHYSICAL EXAMINATION: GENERAL: The patient is alert and oriented x3, not in any acute distress. Ill looking HEENT: Pupils are round and equally reacting to light. EOMI. No scleral icterus. No conjunctival pallor. Normocephalic, atraumatic. No pharyngeal erythema. No thyromegaly. CARDIOVASCULAR: S1 and S2 present. No murmurs, rubs, or gallops. PULMONARY: Coarse breath sound bilaterally, bilateral crackles audible ABDOMEN: Soft, nontender, nondistended, normoactive bowel sounds. No palpable organomegaly. MUSCULOSKELETAL: No joint swelling or deformity. EXTREMITIES: No cyanosis, clubbing, or pedal edema. NEUROLOGICAL: Gross neurological examination did not reveal any focal deficits. SKIN: No rashes. Assessment and plan New onset atrial fibrillation with rapid ventricular rate Diffuse subpleural nodularity along the right sided lung fissures correlate for interval neoplastic disease progression. Mediastinal lymphadenopathy. Patient is s/p bronchoscopy and endobronchial ultrasound with needle biopsy on 05/24/2023. Acute hypoxic respiratory failure status post bronchoscopy. Right upper lobe masslike consolidation measuring 4.0 cm in addition to exten sive mediastinal lymphadenopathy involving the paratracheal, right hilar and suprahilar area Recent admission with acute hypoxic respiratory failure status post right thoracentesis. fluid cytology negative for malignancy. Chronic CHF with systolic dysfunction ejection fraction 25 to 30%, mid to distal inferolateral and lateral wall hypokinesis and inferior apical wall hypokinesis. Ischemic cardiomyopathy Hyperkalemia Dysphagia Coronary artery disease with prior history of quadruple CABG in 2009 Hypertension Diabetes type 2 [id number] Hyperlipidemia Rheumatoid arthritis not on any treatment currently. Hypothyroidism. Patient has elevated free T4 level. Levothyroxine dose reduced to 125 mcg daily. History of non-Hodgkin's lymphoma status postchemotherapy. Currently in remissi on. Monitor vital signs Monitor CBC Monitor CMP Continue telemetry monitoring Encourage use of incentive spirometer Continue amiodarone twice daily Continue Eliquis Continue oral Lasix biopsy of the mediastinal lymph node is positive for malignant neoplasm CT chest done on 06/01 showed showed diffuse airspace opacity in the right lung concerning for pneumonia, moderate right pleural effusion, right upper lung masslike area seen in the pleural thickening suggested the mass of the right upper lung appears increased in size from prior Cardiology following Patient resume back on oral antibiotics, cefepime started Pulmonology following EGD done on 05/28 which showed AV malformation of the stomach, surgery recommended holding anticoagulation till they do EGD dilatation scheduled for 05/30, currently n.p.o. Nephrology following. Hematology oncology following, ordered MRI brain and PET scan Labs and medication were reviewed.. Continue same treatment. Continue with symptomatic treatment. Resume home medication. Monitor labs and vitals. DVT and GI prophylaxis. Further recommendations as per clinical course of the patient Dictation was produced using [employer] dictation software. please excuse any grammatical, word or spelling errors. Objective - Vital Signs Vital signs: Vital Signs Temp 98.0 F 06/02/23 07:55 Pulse 75 06/02/23 08:00 Resp 18 06/02/23 08:00 BP 113/64 06/02/23 07:55 Pulse Ox 91 L 06/02/23 07:55 FiO2 Intake & Output 06/01/23 06/02/23 06/02/23 18:59 06:59 18:59 Weight 79.3 kg Other: Voiding Method Toilet # Voids 2 1 # Bowel Movements 0 - Labs CBC & Chem 7: 06/01/23 06:05 06/02/23 02:05 Labs: Abnormal Lab Results - Last 24 Hours (Table) 05/31/23 06/01/23 06/01/23 Range/Units 14:02 16:48 18:37 Sodium (137-145) mmol/L BUN (7-17) mg/dL POC Glucose (mg/dL) (70-110) mg/dL Plasma Lactic Acid Nic 4.5 H* (0.7-2.0) mmol/L Albumin (PEP) 2.68 L (3.80-4.90) g/dL Qpquh-3-Dthsurqtc 0.50 H (0.10-0.40) g/dL PTH Intact 5.1 L (14.0-72.0) pg/mL 06/01/23 06/02/23 06/02/23 Range/Units 22:03 02:05 02:05 Sodium 131 L (137-145) mmol/L BUN 45 H (7-17) mg/dL POC Glucose (mg/dL) (70-110) mg/dL Plasma Lactic Acid Nic 3.9 H* 2.6 H* (0.7-2.0) mmol/L Albumin (PEP) (3.80-4.90) g/dL Htztp-7-Cxuezivsq (0.10-0.40) g/dL PTH Intact (14.0-72.0) pg/mL 06/02/23 06/02/23 Range/Units 05:16 11:26 Sodium (137-145) mmol/L BUN (7-17) mg/dL POC Glucose (mg/dL) 119 H (70-110) mg/dL Plasma Lactic Acid Nic 2.8 H* (0.7-2.0) mmol/L Albumin (PEP) (3.80-4.90) g/dL Updvf-5-Yrcbppgos (0.10-0.40) g/dL PTH Intact (14.0-72.0) pg/mL
--- NOTE | 2023-06-02 13:25 | P.PN ---
Subjective Progress Note Date: 06/02/23 CHIEF COMPLAINT: Dysphagia HISTORY OF PRESENT ILLNESS: The patient is a 82-year-old female being seen for dysphagia. She is status post upper endoscopy with rigid dilation. She reports no further troubles with sore throat or swallowing. She is tolerating ground diet. She denies abdominal pain. ROS: No reports of nausea and vomiting. No fevers or chills. No new chest pain. PHYSICAL EXAM: VITAL SIGNS: Reviewed CONSTITUTIONAL: Well developed and in no acute distress. EYES: Conjuctivae without sclera icterus. Extraocular movements grossly intact. HEAD, EARS, NOSE, THROAT: Moist buccal mucosa. Head is atraumatic, normocephalic. Hears conversational speech. No nasal drainage. RESPIRATORY: Non-labored respirations and equal bilateral excursions. CARDIOVASCULAR: Palpable 2+ radial pulses. ABDOMEN: Nontender. MUSCULOSKELETAL: No gross deformity of the lower extremities noted. No clubbing. No cyanosis. SKIN: Good skin turgor. Well perfused. NEUROLOGIC: Cranial nerves II through XII grossly intact. No focal or lateralizing signs. PSYCH: Alert and oriented to person CLINICAL LABS: Reviewed. Newly elevated lactate level ASSESSMENT: 1. Dysphagia due to upper esophageal stenosis 2. Unintentional weight loss due to dysphagia 3. New onset atrial fibrillation with rapid ventricular response, controlled 4. Persistent hyperkalemia 5. Leukocytosis 6. Arteriovenous malformations of the stomach 7. Lactic acidosis PLAN: 1. May resume blood thinners. 2. May advance diet to regular diet 3. General surgery signing off. Please reconsult if needed Objective - Vital Signs Vital signs: Vital Signs Temp 97.7 F 06/02/23 13:10 Pulse 80 06/02/23 13:10 Resp 18 06/02/23 13:10 BP 95/54 06/02/23 13:10 Pulse Ox 97 06/02/23 13:10 FiO2 Intake & Output 06/01/23 06/02/23 06/02/23 18:59 06:59 18:59 Weight 79.3 kg Other: Voiding Method Toilet # Voids 2 1 # Bowel Movements 0 - Labs CBC & Chem 7: 06/01/23 06:05 06/02/23 02:05 Labs: Abnormal Lab Results - Last 24 Hours (Table) 05/31/23 06/01/23 06/01/23 Range/Units 14:02 16:48 18:37 Sodium (137-145) mmol/L BUN (7-17) mg/dL POC Glucose (mg/dL) (70-110) mg/dL Plasma Lactic Acid Nic 4.5 H* (0.7-2.0) mmol/L Albumin (PEP) 2.68 L (3.80-4.90) g/dL Eeazb-1-Vxuonwqbo 0.50 H (0.10-0.40) g/dL PTH Intact 5.1 L (14.0-72.0) pg/mL 06/01/23 06/02/23 06/02/23 Range/Units 22:03 02:05 02:05 Sodium 131 L (137-145) mmol/L BUN 45 H (7-17) mg/dL POC Glucose (mg/dL) (70-110) mg/dL Plasma Lactic Acid Nic 3.9 H* 2.6 H* (0.7-2.0) mmol/L Albumin (PEP) (3.80-4.90) g/dL Iervk-9-Pklywoeos (0.10-0.40) g/dL PTH Intact (14.0-72.0) pg/mL 06/02/23 06/02/23 Range/Units 05:16 11:26 Sodium (137-145) mmol/L BUN (7-17) mg/dL POC Glucose (mg/dL) 119 H (70-110) mg/dL Plasma Lactic Acid Nic 2.8 H* (0.7-2.0) mmol/L Albumin (PEP) (3.80-4.90) g/dL Zfpnd-7-Zockmoqte (0.10-0.40) g/dL PTH Intact (14.0-72.0) pg/mL
--- NOTE | 2023-06-02 13:47 | P.PN ---
Subjective Patient is seen in follow-up for hyperkalemia. Potassium stable at 5.1. Has been voiding. Denies chest pain or shortness of breath. Blood pressure dropped yesterday and patient received 1 L bolus of normal saline and is currently maintained on normal saline at 100 cc an hour. Sitting up in chair. Vital signs are stable. General: No acute distress. HEENT: Head exam is unremarkable. LUNGS: No audible rhonchi or wheezes. HEART: Rate and Rhythm are regular. ABDOMEN: Nontender. EXTREMITITES: Trace edema. Objective - Vital Signs Vital signs: Vital Signs Temp 97.7 F 06/02/23 13:10 Pulse 80 06/02/23 13:10 Resp 18 06/02/23 13:10 BP 95/54 06/02/23 13:10 Pulse Ox 97 06/02/23 13:10 FiO2 Intake & Output 06/01/23 06/02/23 06/02/23 18:59 06:59 18:59 Weight 79.3 kg Other: Voiding Method Toilet # Voids 2 1 # Bowel Movements 0 - Labs CBC & Chem 7: 06/01/23 06:05 06/02/23 02:05 Labs: Abnormal Lab Results - Last 24 Hours (Table) 05/31/23 06/01/23 06/01/23 Range/Units 14:02 16:48 18:37 Sodium (137-145) mmol/L BUN (7-17) mg/dL POC Glucose (mg/dL) (70-110) mg/dL Plasma Lactic Acid Nic 4.5 H* (0.7-2.0) mmol/L Albumin (PEP) 2.68 L (3.80-4.90) g/dL Ivfnu-8-Mkmvemgsz 0.50 H (0.10-0.40) g/dL PTH Intact 5.1 L (14.0-72.0) pg/mL 06/01/23 06/02/23 06/02/23 Range/Units 22:03 02:05 02:05 Sodium 131 L (137-145) mmol/L BUN 45 H (7-17) mg/dL POC Glucose (mg/dL) (70-110) mg/dL Plasma Lactic Acid Nic 3.9 H* 2.6 H* (0.7-2.0) mmol/L Albumin (PEP) (3.80-4.90) g/dL Nqcuk-9-Zvmozzqfh (0.10-0.40) g/dL PTH Intact (14.0-72.0) pg/mL 06/02/23 06/02/23 Range/Units 05:16 11:26 Sodium (137-145) mmol/L BUN (7-17) mg/dL POC Glucose (mg/dL) 119 H (70-110) mg/dL Plasma Lactic Acid Nic 2.8 H* (0.7-2.0) mmol/L Albumin (PEP) (3.80-4.90) g/dL Xidkr-6-Wjucfwkpp (0.10-0.40) g/dL PTH Intact (14.0-72.0) pg/mL Assessment and Plan Plan: Assessment: 1. Hyperkalemia. Takes lisinopril outpatient but currently held. Blood sugars not elevated. No significant acidosis. No urinary retention. Stable. 2. Hypercalcemia secondary to vitamin D supplementation and concern for underlying malignancy. Vitamin D level 33.1. SCAR level low. PTH low at 5.1. TSH normal. 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 Calcium level better. 3. Dysphagia status post EGD with dilation. Surgery following. 4. A-fib with RVR. Stable. 5. Right upper lobe masslike consolidation with mediastinal lymphadenopathy concerning for malignancy. 6. History of lymphoma. 7. Diabetes mellitus. Plan: Decrease rate of normal saline to 50 cc an hour. Check a.m. cortisol level. Maintain Lasix. Maintain Lokelma. Low potassium diet. Avoid calcium and vitamin D supplementation. Status post zoledronic acid June 01, 2023.
--- NOTE | 2023-06-02 15:22 | P.PN ---
Subjective Progress Note Date: 06/02/23 This is a 82-year-old female patient was suspected to have malignancy. The patient has been having progressive worsening in her health status in general. She has not been eating. She has been extremely weak and debilitated. She was in the hospital approximately a month ago and at that time she came in with acute hypoxic respiratory failure and the patient was initially supported with BiPAP and subsequently was found to have a right-sided pleural effusion. I performed a bedside thoracentesis on this patient and a total of 1.6 L of fluid was aspirated and fluid cytology was negative for malignancy. Echocardiogram showed impaired LV function with an EF of around 25 to 30% and there was some mid to distal anterolateral wall hypokinesis and apical hypokinesis. The patient also had mild to moderate aortic valve calcification without any stenosis. She is subsequent CAT scan of the chest showed a loculated moderate- sized right-sided pleural effusion and irregular pleural wall thickening and the rind throughout the right hemithorax up to 1.3 cm in size and there was also what seems to be right upper lobe mass with extension into the mediastinum in addition to lymphadenopathy within the right hilum measuring around 2.3 cm in size and right suprahilar measuring 1.9 cm in size and in the subcarinal area in addition. There was a mass in the right upper lobe that is pleural-based opacity measuring 4.0 cm in size. Of significance was extensive pleural surface irregularity and nodular structures and this was obviously a manifestation of a neoplastic process and the concern was adenocarcinoma versus mesothelioma versus lymphoma as the patient is known to have a previous history of lymphoma. This was explained to the patient and the family members at length. Family was adamant in establishing a diagnosis. Based on that, the patient was brought in today patient underwent an endobronchial ultrasound under general anesthesia. I did not biopsy the right upper lobe mass. I was going more conservative because of her medical problems and I ended up doing a transbronchial needle aspirate of station 10 R and station 7 lymph nodes. Note that following her procedure, the patient was extubated and she got transferred to recovery where she went into A- fib RVR. I ordered Cardizem drip and this was not started and by the time she was about to start the Cardizem she converted to normal sinus rhythm. I discussed the findings with the family. The family told me that the patient's condition was progressively getting worse and she was not eating and they were very much concerned about her health in general and they wanted to keep her in the hospital. As such, the patient will be hospitalized to telemetry unit. She is known to have a left atrial ejection fraction of 25%. She is also known to have history of rheumatoid arthritis and she is currently off Remicade. She has diabetes mellitus type 2, coronary artery disease, hyperlipidemia, hyperlipidemia, remote history of non-Hodgkin's lymphoma. On today's evaluation of 05/25/2023, the patient is stable on 4L of oxygen by nasal cannula. Her cardiac rhythm is back to sinus. She is started on anticoagulation and she is currently on Eliquis. She is also on Lasix 20 mg p.o. daily. She is on Coreg 6.25 mg twice a day. Denies having any new complaints. The white cell count 11 with a hemoglobin 12.7 and a platelet count of 151. Sodium is at 136, BUN is at 59 with a creatinine of 0.7 and a potassium level is at 5.4. Thyroid function test shows a TSH free of 3.66 with a free T4 of 0.276. The patient remains on levothyroxine at 125 mcg p.o. daily. The dose of the thyroid has been modified and the patient has been just from 200 mcg on 225. On today's evaluation of 05/26/2023, the patient is resting comfortably in bed. No specific complaints. She is lethargic and weak. She remains on 40s of oxygen by nasal cannula with a pulse ox of 94%. Results of the biopsy are still pending for now. The patient has no significant complaints. The patient has chest wall pain on the right. This is an ongoing chronic problem dated 2 abnormalities that were described earlier. The patient is currently in normal sinus mechanism. The patient's thyroid dose has been i adjusted by the medical group. [employer] also on the case. On today's evaluation of 05/27/2023, the patient is resting comfortably in bed. No specific complaints. Awaiting the results of the biopsy. WBC count is at 10.5 and hemoglobin 12 .7 and a platelet count of 135. The rest of the blood work shows a BUN of 62 with a creatinine of 1.09 and sodium levels at 131 with a potassium level of 5.8. The patient's is resting comfortably in bed. No other issues for now. She is complaining of pain along the right lateral chest area. She remains on anticoagulation with Eliquis 5 mg p.o. twice a day. She remains on her routine outpatient medications. Surgical consultation for dysphagia was done. Patient will be given an upper GI esophagogram and further workup regarding this dysphagia will be done depending on the results of the endobronchial ultrasound biopsies from the mediastinum. Highly suspicious for malignancy as mentioned. On today's evaluation of 05/28/2023, the patient resting comfortably in bed. No change in her condition. Awaiting final pathology from the biopsies and she should this should be available by Monday. Meanwhile, the patient has no specific complaints. She remains on 4 L with a pulse ox of 95%. Resting comfortably in bed. Pain remains unchanged. The patient is seen today May 29, 2023 in follow-up on the regular medical floor. She was initially here for an elective lung biopsy on May 24, 2023 but developed atrial fibrillation with a rapid ventricular response in the recovery room. She has been initiated on amiodarone. Anticoagulated with Eliquis. Pathology is still pending. She is maintaining O2 saturations in the 90s on 4 L/min per nasal cannula. She did undergo EGD today due to her dysphagia, unintentional weight loss and anticoagulant use. 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 White count 9.2. Hemoglobin 11.2. Platelets 131. Sodium 133. Potassium 5.6. Bicarb 24. BUN 44. Creatinine 0.8. Glucose 90. Patient was reevaluated today on 05/30/2023, pulmonary dos santos the patient is doing great, however she has GI issues being addressed by general surgery on the case. EGD on 05/28 showed AV malformation of the stomach surgery is still recommending holding anticoagulation until they do EGD dilatation which is scheduled for 05/05. Pulmonary dos santos no cough no wheezing no shortness of breath. And her atrial fibrillation seems to be relatively under control patient remains on 4 L nasal cannula with O2 sats of 96%, blood pressure 107/64, and A-fib seems to be controlled The patient is seen today May 31, 2023 in follow-up on the regular medical floor. She is awake and alert in no acute distress. She did undergo repeat EGD with rigid dilator for esophageal dilatation. Blood thinner Eliquis will be held for 48 hours. Ground diet recommended. Sodium 132. Potassium 5.5. Bicarb 22. BUN 40. Creatinine 0.78. Glucose 108. She remains on amiodarone. Continued on diuretics. Continued on Protonix. The patient is seen today June 01, 2023 in follow-up on the regular medical floor. She is resting comfortably in bed. Awake and alert in no acute distress. Maintaining O2 saturations in the 90s on 4 L/min per nasal cannula. White count 10.4. Hemoglobin 12.2. Platelets 149. Sodium 136. Potassium 5.3. Bicarb 24. BUN 36. Creatinine 0.7. Glucose 98. Initial pathology from fine- needle aspirate of the mediastinal lymph nodes revealed positive for malignant neoplasm however final results have been sent out to the [facility] and are pending. The patient is seen today June 02, 2023 in follow-up on the regular medical floor. She had gone down for CT scan of the chest and a MRI of the brain which was negative for metastasis. CT scan of the chest however revealing worsening and diffuse airspace opacities of the right lung. Moderate right pleural effusion. Right upper lung masslike area with pleural thickening. Biopsies reveal possible poorly differentiated non-small cell carcinoma likely adenocarcinoma of the lung origin versus mesothelioma versus less likely lymphoma. Results from [facility] are pending. She is maintaining good O2 saturations in the 90s on 4 L/min per nasal cannula. Afebrile. Hemodynamically stable. Glucose 119. Lactic acid 4.6. He remains on cefepime. Anticoagulated with Eliquis. Objective - Vital Signs Vital signs: Vital Signs Temp 97.7 F 06/02/23 13:10 Pulse 80 06/02/23 13:10 Resp 18 06/02/23 13:10 BP 95/54 06/02/23 13:10 Pulse Ox 97 06/02/23 13:10 FiO2 Intake & Output 06/01/23 06/02/23 06/02/23 18:59 06:59 18:59 Weight 79.3 kg Other: Voiding Method Toilet # Voids 2 1 1 # Bowel Movements 0 - Exam GENERAL EXAM: Alert, oriented 82-year-old female, resting in bed, on 4 L nasal cannula, in no apparent distress. HEAD: Normocephalic. EYES: Normal reaction of pupils, equal size. NOSE: Clear with pink turbinates. THROAT: No erythema or exudates. NECK: No masses, no JVD. CHEST: No chest wall deformity. LUNGS: Equal air entry with few scattered rhonchi. CVS: S1 and S2 normal with no audible murmur, regular rhythm. ABDOMEN: No hepatosplenomegaly, normal bowel sounds, no guarding or rigidity. SPINE: No scoliosis or deformity SKIN: No rashes CENTRAL NERVOUS SYSTEM: No focal deficits, tone is normal in all 4 extremities. EXTREMITIES: There is no peripheral edema. No clubbing, no cyanosis. Peripheral pulses are intact. - Labs CBC & Chem 7: 06/01/23 06:05 06/02/23 02:05 Labs: Abnormal Lab Results - Last 24 Hours (Table) 05/31/23 06/01/23 06/01/23 Range/Units 14:02 16:48 18:37 Sodium (137-145) mmol/L BUN (7-17) mg/dL POC Glucose (mg/dL) (70-110) mg/dL Plasma Lactic Acid Nic 4.5 H* (0.7-2.0) mmol/L Albumin (PEP) 2.68 L (3.80-4.90) g/dL [id number] 0.50 H (0.10-0.40) g/dL PTH Intact 5.1 L (14.0-72.0) pg/mL 06/01/23 06/02/23 06/02/23 Range/Units 22:03 02:05 02:05 Sodium 131 L (137-145) mmol/L BUN 45 H (7-17) mg/dL POC Glucose (mg/dL) (70-110) mg/dL Plasma Lactic Acid Nic 3.9 H* 2.6 H* (0.7-2.0) mmol/L Albumin (PEP) (3.80-4.90) g/dL Zyimj-1-Jegoyverk (0.10-0.40) g/dL PTH Intact (14.0-72.0) pg/mL 06/02/23 06/02/23 06/02/23 Range/Units 05:16 11:26 14:28 Sodium (137-145) mmol/L BUN (7-17) mg/dL POC Glucose (mg/dL) 119 H (70-110) mg/dL Plasma Lactic Acid Nic 2.8 H* 4.6 H* (0.7-2.0) mmol/L Albumin (PEP) (3.80-4.90) g/dL Gjsvt-7-[id number] (0.10-0.40) g/dL PTH Intact (14.0-72.0) pg/mL Assessment and Plan Assessment: New onset atrial fibrillation with RVR, converted to normal sinus rhythm and the patient Is currently hemodynamically stable. Patient is currently on Cordarone and Coreg. Anticoagulation with Eliquis. Acute hypoxic respiratory failure post bronchoscopy May 24 2023 and the patient is currently on 4 L of oxygen by nasal cannula the flow to be titrated to maintain saturation above 90%. Chest x-ray findings are stable and is consi stent with a right upper lobe mass, pleural thickening and loculated right-sided pleural effusion. CT scan of the chest today June 02, 2023 now revealing diffuse airspace opacities in the right lung. Moderate right pleural effusion. She did undergo EGD today May 29, 2023 due to her dysphagia, unintentional weight loss and anticoagulant use. 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 She did undergo follow-up EGD today May 31, 2023 for esophageal dilatation. Eliquis to remain on hold x 48 hours. Right upper lobe masslike consolidation measuring 4.0 cm in addition to extensive mediastinal lymphadenopathy involving the paratracheal, right hilar and suprahilar area and the patient has significant pleural surface irregularities and multiloculated right-sided pleural effusions. Possibilities include adenocarcinoma of the lung, mesothelioma, and lymphoma. Note that the pleural surface is quite thickened and is reaching approximately 1.3 cm with significant irregularities and previous thoracentesis yielded no final pathology diagnosis. Nevertheless, the findings are highly suspicious for malignancy. Patient and the family was made aware. She has a poor baseline performance and functional status. She may not be a candidate for any treatment if the diagnosis of malignancy established. Nevertheless, patient and family are highly interested in establishing a final diagnosis and she did undergo an endobronchial ultrasound and biopsy of the mediastinal lymph nodes on May 24, 2023. Biopsies reveal possible poorly differentiated non-small cell carcinoma likely adenocarcinoma of the lung origin versus mesothelioma versus less likely lymphoma. Results from [facility] are pending. Mediastinal lymphadenopathy detail discussed above, awaiting final pathology post biopsy Chest wall pain with an irregular pleural surface border with multiple nodularities and secondary pain. This is likely malignant process. Rule out mesothelioma versus adenocarcinoma versus lymphoma. Offered nonsteroidal anti- inflammatory medications for pain control. Pleural effusion with previous thoracentesis removed approximately 1.6 to 2 L of pleural fluid from the right lung. The fluid was exudative. The fluid cytology came back negative for malignancy Coronary arteriosclerosis - She is post CABG Chronic systolic heart failure diagnosed by an echocardiogram that was done and the patient has ejection fraction of 25% and she has some edema in lower e xtremities and she is seeing cardiology and she is currently on diuretics and she is taking Lasix at a dose of 40 mg once a day Non-Hodgkin's lymphoma (clinical) She is in remission and she was diagnosed in 2013 and she has completed the chemotherapy . This involved the jaw and the head and neck Type 2 diabetes mellitus Maintained on Metformin and glyburide Rheumatoid arthritis On no treatment and she is off Ramicade Medical debility along with weight loss and diminished appetite and failure to thrive Plan: The patient was seen and evaluated CT scan of the chest, MRI of the brain, labs and medications reviewed Obtain ultrasound of the right chest If significant will perform thoracentesis May consider another bronchoscopy Continue to hold Eliquis We will continue to follow I have personally seen and examined the patient, performed the documentation and the assessment and plan as written. Number of minutes spent on the visit: 10.
[2023-06-02] MEDS: HYDROcodone/APAP 5-325MG 1 EACH TAB PO PRN (15:34)
[2023-06-02 16:38] LABS: Glucose,Whole Blood 101 mg/dL (70-110)
--- NOTE | 2023-06-02 16:46 | US ---
EXAMINATION TYPE: US chest DATE OF EXAM: 06/02/2023 COMPARISON: NONE CLINICAL INDICATION: Female, 82 years old with history of Right pleural effusion; right pleural effus ion TECHNIQUE: Targeted ultrasound of the posterior lower right hemithorax EXAM MEASUREMENTS: Right Pleural Effusion pocket size: 7.6 cm Right skin surface to fluid distance: 3.4 cm Right side marked for possible thoracentesis outside the dept. Pulmonologists are able to review the images in the patient?s EMR. there is a large, loculated, right pleural effusion noted. largest location marked. Exam limited due to patient inability to sit up independently and required help of nurse IMPRESSIONS: Large loculated right pleural effusion marked for thoracentesis.
[2023-06-02 20:02] LABS: Glucose,Whole Blood 97 mg/dL (70-110)
[2023-06-02] MEDS: DOCUSATE 100 MG CAP PO SCH (20:51)
[2023-06-03 02:04] LABS: Immunoglobulin M 94.3 mg/dL (40.0-280.0)
[2023-06-03 03:04] LABS: HCT 34.5 % (34.0-46.0); Hypochromasia Moderate; MCH 31.5 pg (25.0-35.0); MCV 98.4 fL (80.0-100.0); Macrocytosis Slight; Mean Platelet Volume 9.3; Platelet Count 127 k/uL (150-450); RBC 3.51 m/uL (3.80-5.40); RDW 15.6 % (11.5-15.5); WBC 9.2 k/uL (3.8-10.6)
[2023-06-03 04:45] LABS: ALT 14 U/L (4-34); AST 21 U/L (14-36); African American GFR (CKD) 73 (>60 ml/min/1.73 sqM); Albumin 2.1 g/dL (3.5-5.0); Albumin/Globulin Ratio 0.9; Alkaline Phosphatase 46 U/L (38-126); Anion Gap 5 mmol/L; Blood Urea Nitrogen 41 mg/dL (7-17); Calcium 9.2 mg/dL (8.4-10.2); Carbon Dioxide 20 mmol/L (22-30); Chloride 106 mmol/L (98-107); Globulin 2.4 g/dL; Glucose 82 mg/dL (74-99); Magnesium 1.6 mg/dL (1.6-2.3); Non-African American GFR(CKD) 63 (>60 ml/min/1.73 sqM); Potassium 4.6 mmol/L (3.5-5.1); Sodium 131 mmol/L (137-145); Total Bilirubin 0.5 mg/dL (0.2-1.3); Total Protein 4.5 g/dL (6.3-8.2)
[2023-06-03 06:05] LABS: Glucose,Whole Blood 81 mg/dL (70-110)
--- NOTE | 2023-06-03 11:50 | P.PN ---
Subjective Progress Note Date: 06/03/23 This is a 82-year-old female patient was suspected to have malignancy. The patient has been having progressive worsening in her health status in general. She has not been eating. She has been extremely weak and debilitated. She was in the hospital approximately a month ago and at that time she came in with acute hypoxic respiratory failure and the patient was initially supported with BiPAP and subsequently was found to have a right-sided pleural effusion. I performed a bedside thoracentesis on this patient and a total of 1.6 L of fluid was aspirated and fluid cytology was negative for malignancy. Echocardiogram showed impaired LV function with an EF of around 25 to 30% and there was some mid to distal anterolateral wall hypokinesis and apical hypokinesis. The patient also had mild to moderate aortic valve calcification without any stenosis. She is subsequent CAT scan of the chest showed a loculated moderate- sized right-sided pleural effusion and irregular pleural wall thickening and the rind throughout the right hemithorax up to 1.3 cm in size and there was also what seems to be right upper lobe mass with extension into the mediastinum in addition to lymphadenopathy within the right hilum measuring around 2.3 cm in size and right suprahilar measuring 1.9 cm in size and in the subcarinal area in addition. There was a mass in the right upper lobe that is pleural-based opacity measuring 4.0 cm in size. Of significance was extensive pleural surface irregularity and nodular structures and this was obviously a manifestation of a neoplastic process and the concern was adenocarcinoma versus mesothelioma versus lymphoma as the patient is known to have a previous history of lymphoma. This was explained to the patient and the family members at length. Family was adamant in establishing a diagnosis. Based on that, the patient was brought in today patient underwent an endobronchial ultrasound under general anesthesia. I did not biopsy the right upper lobe mass. I was going more conservative because of her medical problems and I ended up doing a transbronchial needle aspirate of station 10 R and station 7 lymph nodes. Note that following her procedure, the patient was extubated and she got transferred to recovery where she went into A- fib RVR. I ordered Cardizem drip and this was not started and by the time she was about to start the Cardizem she converted to normal sinus rhythm. I discussed the findings with the family. The family told me that the patient's condition was progressively getting worse and she was not eating and they were very much concerned about her health in general and they wanted to keep her in the hospital. As such, the patient will be hospitalized to telemetry unit. She is known to have a left atrial ejection fraction of 25%. She is also known to have history of rheumatoid arthritis and she is currently off Remicade. She has diabetes mellitus type 2, coronary artery disease, hyperlipidemia, hyperlipidemia, remote history of non-Hodgkin's lymphoma. On today's evaluation of 05/25/2023, the patient is stable on 4L of oxygen by nasal cannula. Her cardiac rhythm is back to sinus. She is started on anticoagulation and she is currently on Eliquis. She is also on Lasix 20 mg p.o. daily. She is on Coreg 6.25 mg twice a day. Denies having any new complaints. The white cell count 11 with a hemoglobin 12.7 and a platelet count of 151. Sodium is at 136, BUN is at 59 with a creatinine of 0.7 and a potassium level is at 5.4. Thyroid function test shows a TSH free of 3.66 with a free T4 of 0.276. The patient remains on levothyroxine at 125 mcg p.o. daily. The dose of the thyroid has been modified and the patient has been just from 200 mcg on 225. On today's evaluation of 05/26/2023, the patient is resting comfortably in bed. No specific complaints. She is lethargic and weak. She remains on 40s of oxygen by nasal cannula with a pulse ox of 94%. Results of the biopsy are still pending for now. The patient has no significant complaints. The patient has chest wall pain on the right. This is an ongoing chronic problem dated 2 abnormalities that were described earlier. The patient is currently in normal sinus mechanism. The patient's thyroid dose has been i adjusted by the medical group. Rounding Machine Operator also on the case. On today's evaluation of 05/27/2023, the patient is resting comfortably in bed. No specific complaints. Awaiting the results of the biopsy. WBC count is at 10.5 and hemoglobin 12 .7 and a platelet count of 135. The rest of the blood work shows a BUN of 62 with a creatinine of 1.09 and sodium levels at 131 with a potassium level of 5.8. The patient's is resting comfortably in bed. No other issues for now. She is complaining of pain along the right lateral chest area. She remains on anticoagulation with Eliquis 5 mg p.o. twice a day. She remains on her routine outpatient medications. Surgical consultation for dysphagia was done. Patient will be given an upper GI esophagogram and further workup regarding this dysphagia will be done depending on the results of the endobronchial ultrasound biopsies from the mediastinum. Highly suspicious for malignancy as mentioned. On today's evaluation of 05/28/2023, the patient resting comfortably in bed. No change in her condition. Awaiting final pathology from the biopsies and she should this should be available by Monday. Meanwhile, the patient has no specific complaints. She remains on 4 L with a pulse ox of 95%. Resting comfortably in bed. Pain remains unchanged. The patient is seen today May 29, 2023 in follow-up on the regular medical floor. She was initially here for an elective lung biopsy on May 24, 2023 but developed atrial fibrillation with a rapid ventricular response in the recovery room. She has been initiated on amiodarone. Anticoagulated with Eliquis. Pathology is still pending. She is maintaining O2 saturations in the 90s on 4 L/min per nasal cannula. She did undergo EGD today due to her dysphagia, unintentional weight loss and anticoagulant use. 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 White count 9.2. Hemoglobin 11.2. Platelets 131. Sodium 133. Potassium 5.6. Bicarb 24. BUN 44. Creatinine 0.8. Glucose 90. Patient was reevaluated today on 05/30/2023, pulmonary dos santos the patient is doing great, however she has GI issues being addressed by general surgery on the case. EGD on 05/28 showed AV malformation of the stomach surgery is still recommending holding anticoagulation until they do EGD dilatation which is scheduled for 05/05. Pulmonary dos santos no cough no wheezing no shortness of breath. And her atrial fibrillation seems to be relatively under control patient remains on 4 L nasal cannula with O2 sats of 96%, blood pressure 107/64, and A-fib seems to be controlled The patient is seen today May 31, 2023 in follow-up on the regular medical floor. She is awake and alert in no acute distress. She did undergo repeat EGD with rigid dilator for esophageal dilatation. Blood thinner Eliquis will be held for 48 hours. Ground diet recommended. Sodium 132. Potassium 5.5. Bicarb 22. BUN 40. Creatinine 0.78. Glucose 108. She remains on amiodarone. Continued on diuretics. Continued on Protonix. The patient is seen today June 01, 2023 in follow-up on the regular medical floor. She is resting comfortably in bed. Awake and alert in no acute distress. Maintaining O2 saturations in the 90s on 4 L/min per nasal cannula. White count 10.4. Hemoglobin 12.2. Platelets 149. Sodium 136. Potassium 5.3. Bicarb 24. BUN 36. Creatinine 0.7. Glucose 98. Initial pathology from fine- needle aspirate of the mediastinal lymph nodes revealed positive for malignant neoplasm however final results have been sent out to the [facility] and are pending. The patient is seen today June 02, 2023 in follow-up on the regular medical floor. She had gone down for CT scan of the chest and a MRI of the brain which was negative for metastasis. CT scan of the chest however revealing worsening and diffuse airspace opacities of the right lung. Moderate right pleural effusion. Right upper lung masslike area with pleural thickening. Biopsies reveal possible poorly differentiated non-small cell carcinoma likely adenocarcinoma of the lung origin versus mesothelioma versus less likely lymphoma. Results from [facility] are pending. She is maintaining good O2 saturations in the 90s on 4 L/min per nasal cannula. Afebrile. Hemodynamically stable. Glucose 119. Lactic acid 4.6. He remains on cefepime. Anticoagulated with Eliquis. The patient is seen today June 03, 2023 in follow-up on the regular medical floor. She is currently sitting up in bed. Awake and alert in no acute dis tress. Denies any worsening shortness of breath. She has a loose congested cough. No fever or chills. Maintaining O2 saturation in the low 90s on 5 L/min per nasal cannula. She is afebrile. Ultrasound of the right chest reveals a 7.6 cm loculated pocket. Blood culture revealed no growth. Biopsies reveal possible poorly differentiated non-small cell carcinoma likely adenocarcinoma of the lung origin versus mesothelioma versus less likely lymphoma. Results from [facility] are pending. White count 9.2. Hemoglobin 11.0. Platelets 127. Sodium 131. Potassium 4.6. Bicarb 20. BUN 41. Creatinine 0.86. He remains on cefepime. Continue on oral diuretics. Objective - Vital Signs Vital signs: Vital Signs Temp 98.1 F 06/03/23 07:16 Pulse 76 06/03/23 07:16 Resp 18 06/03/23 07:16 BP 93/55 06/03/23 07:16 Pulse Ox 91 L 06/03/23 07:16 FiO2 Intake & Output 06/02/23 06/03/23 06/03/23 18:59 06:59 18:59 Other: Voiding Method Toilet Toilet # Voids 1 1 - Exam GENERAL EXAM: Alert, weak, frail 82-year-old female, resting in bed, on 5 L nasal cannula, in no apparent distress. HEAD: Normocephalic. EYES: Normal reaction of pupils, equal size. NOSE: Clear with pink turbinates. THROAT: No erythema or exudates. NECK: No masses, no JVD. CHEST: No chest wall deformity. LUNGS: Equal air entry with few scattered rhonchi, diminished in the right lung. CVS: S1 and S2 normal with no audible murmur, regular rhythm. ABDOMEN: No hepatosplenomegaly, normal bowel sounds, no guarding or rigidity. SPINE: No scoliosis or deformity SKIN: No rashes CENTRAL NERVOUS SYSTEM: No focal deficits, tone is normal in all 4 extremities. EXTREMITIES: There is no peripheral edema. No clubbing, no cyanosis. Peripheral pulses are intact. - Labs CBC & Chem 7: 06/03/23 02:43 06/03/23 02:38 Labs: Abnormal Lab Results - Last 24 Hours (Table) 06/02/23 06/02/23 06/02/23 Range/Units 14:28 17:58 21:35 RBC (3.80-5.40) m/uL Hgb (11.4-16.0) gm/dL RDW (11.5-15.5) % Plt Count (150-450) k/uL Sodium (137-145) mmol/L Carbon Dioxide (22-30) mmol/L BUN (7-17) mg/dL Plasma Lactic Acid Nic 4.6 H* 4.7 H* 4.5 H* (0.7-2.0) mmol/L Total Protein (6.3-8.2) g/dL Albumin (3.5-5.0) g/dL 06/03/23 06/03/23 06/03/23 Range/Units 02:38 02:43 02:43 RBC 3.51 L (3.80-5.40) m/uL Hgb 11.0 L (11.4-16.0) gm/dL RDW 15.6 H (11.5-15.5) % Plt Count 127 L (150-450) k/uL Sodium 131 L (137-145) mmol/L Carbon Dioxide 20 L (22-30) mmol/L BUN 41 H (7-17) mg/dL Plasma Lactic Acid Nic 3.4 H* (0.7-2.0) mmol/L Total Protein 4.5 L (6.3-8.2) g/dL Albumin 2.1 L (3.5-5.0) g/dL 06/03/23 Range/Units 07:08 RBC (3.80-5.40) m/uL Hgb (11.4-16.0) gm/dL RDW (11.5-15.5) % Plt Count (150-450) k/uL Sodium (137-145) mmol/L Carbon Dioxide (22-30) mmol/L BUN (7-17) mg/dL Plasma Lactic Acid Nic 3.2 H* (0.7-2.0) mmol/L Total Protein (6.3-8.2) g/dL Albumin (3.5-5.0) g/dL Microbiology - Last 24 Hours (Table) 06/01/23 18:37 Blood Culture - Preliminary Blood Assessment and Plan Assessment: New onset atrial fibrillation with RVR, converted to normal sinus rhythm and the patient Is currently hemodynamically stable. Patient is currently on Cordarone and Coreg. Anticoagulation with Eliquis. Acute hypoxic respiratory failure post bronchoscopy May 24 2023 and the patient is currently on 4 L of oxygen by nasal cannula the flow to be titrated to maintain saturation above 90%. Chest x-ray findings are stable and is consistent with a right upper lobe mass, pleural thickening and loculated right- sided pleural effusion. CT scan of the chest today June 02, 2023 now revealing diffuse airspace opacities in the right lung. Moderate right pleural effusion. Ultrasound of the right chest reveals a loculated 7.2 cm pocket. Will request IR for pigtail catheter placement She did undergo EGD today May 29, 2023 due to her dysphagia, unintentional weight loss and anticoagulant use. 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 She did undergo follow-up EGD today May 31, 2023 for esophageal dilatation. Eliquis to remain on hold. Right upper lobe masslike consolidation measuring 4.0 cm in addition to extensive mediastinal lymphadenopathy involving the paratracheal, right hilar and suprahilar area and the patient has significant pleural surface irregularities and multiloculated right-sided pleural effusions. Possibilities include adenocarcinoma of the lung, mesothelioma, and lymphoma. Note that the pleural surface is quite thickened and is reaching approximately 1.3 cm with significant irregularities and previous thoracentesis yielded no final pathology diagnosis. Nevertheless, the findings are highly suspicious for malignancy. Patient and the family was made aware. She has a poor baseline performance and functional status. She may not be a candidate for any treatment if the diagnosis of malignancy established. Nevertheless, patient and family are highly interested in establishing a final diagnosis and she did undergo an endobronchial ultrasound and biopsy of the mediastinal lymph nodes on May 24, 2023. Biopsies reveal possible poorly differentiated non-small cell carcinoma likely adenocarcinoma of the lung origin versus mesothelioma versus less likely lymphoma. Results from [facility] are pending. Mediastinal lymphadenopathy detail discussed above, awaiting final pathology post biopsy Chest wall pain with an irregular pleural surface border with multiple nodularities and secondary pain. This is likely malignant process. Rule out mesothelioma versus adenocarcinoma versus lymphoma. Offered nonsteroidal anti- inflammatory medications for pain control. Pleural effusion with previous thoracentesis removed approximately 1.6 to 2 L of pleural fluid from the right lung. The fluid was exudative. The fluid cytology came back negative for malignancy Coronary arteriosclerosis with previous coronary artery bypass grafting Chronic systolic heart failure diagnosed by an echocardiogram that was done and the patient has ejection fraction of 25% and she has some edema in lower extremities and she is seeing cardiology and she is currently on diuretics and she is taking Lasix at a dose of 40 mg once a day Non-Hodgkin's lymphoma (clinical) She is in remission and she was diagnosed in 2013 and she has completed the chemotherapy. This involved the jaw and the head and neck Type 2 diabetes mellitus Maintained on Metformin and glyburide Rheumatoid arthritis On no treatment and she is off Ramicade Medical debility along with weight loss and diminished appetite and failure to thrive Plan: The patient was seen and evaluated Ultrasound of the chest, labs and medications reviewed Reviewed with Dr. Be Fluid in the right chest is loculated Will request interventional radiology to place a pigtail catheter Continue to hold Eliquis Continue cefepime Titrate the FiO2 as tolerated Prognosis is guarded This patient was seen independently by the pulmonary nurse practitioner addressing pulmonary issues I have personally seen and examined the patient, performed the documentation and the assessment and plan as written. Number of minutes spent on the visit: 25.
--- NOTE | 2023-06-03 11:51 | P.PN ---
Subjective Progress Note Date: 06/02/23 At today's visit patient is resting comfortably in bedside chair. No acute events. Patient reports persisting shortness of breath and right-sided chest pain. Continues on IV antibiotics. Patient afebrile. SpO2 91% on 4 L. Patient reports [place] has helped improve pain, but states medication is only l asting 5 to 6 hours. Will increase frequency of [place] to q6 prn. Patient also reports she has not had a normal BM in the last couple days, except 1 small BM. Will add Colace twice daily for prevention of narcotic induced constipation Objective - Vital Signs Vital signs: Vital Signs Temp 97.7 F 06/02/23 13:10 Pulse 80 06/02/23 13:10 Resp 18 06/02/23 13:10 BP 95/54 06/02/23 13:10 Pulse Ox 97 06/02/23 13:10 FiO2 Intake & Output 06/01/23 06/02/23 06/02/23 18:59 06:59 18:59 Weight 79.3 kg Other: Voiding Method Toilet # Voids 2 1 1 # Bowel Movements 0 - Constitutional General appearance: Present: average body habitus, no acute distress - EENT Eyes: Present: anicteric sclerae, EOMI ENT: Present: hearing grossly normal - Respiratory Details: breathing unlabored Respiratory: right: diminished, rales - Cardiovascular Rhythm: regular Heart sounds: normal: S1, S2 - Gastrointestinal General gastrointestinal: Present: soft. Absent: tenderness - Integumentary Integumentary: Absent: cyanotic - Musculoskeletal Musculoskeletal: Present: generalized weakness - Psychiatric Psychiatric: Present: A&O x's 3 - Labs CBC & Chem 7: 06/03/23 02:43 06/03/23 02:38 Labs: Abnormal Lab Results - Last 24 Hours (Table) 05/31/23 06/01/23 06/01/23 Range/Units 14:02 16:48 18:37 Sodium (137-145) mmol/L BUN (7-17) mg/dL POC Glucose (mg/dL) (70-110) mg/dL Plasma Lactic Acid Nic 4.5 H* (0.7-2.0) mmol/L Albumin (PEP) 2.68 L (3.80-4.90) g/dL [id number] 0.50 H (0.10-0.40) g/dL PTH Intact 5.1 L (14.0-72.0) pg/mL 06/01/23 06/02/23 06/02/23 Range/Units 22:03 02:05 02:05 Sodium 131 L (137-145) mmol/L BUN 45 H (7-17) mg/dL POC Glucose (mg/dL) (70-110) mg/dL Plasma Lactic Acid Nic 3.9 H* 2.6 H* (0.7-2.0) mmol/L Albumin (PEP) (3.80-4.90) g/dL Swhtd-4-Xwppxxkup (0.10-0.40) g/dL PTH Intact (14.0-72.0) pg/mL 06/02/23 06/02/23 06/02/23 Range/Units 05:16 11:26 14:28 Sodium (137-145) mmol/L BUN (7-17) mg/dL POC Glucose (mg/dL) 119 H (70-110) mg/dL Plasma Lactic Acid Nic 2.8 H* 4.6 H* (0.7-2.0) mmol/L Albumin (PEP) (3.80-4.90) g/dL Gysfd-1-Gjwaelyvx (0.10-0.40) g/dL PTH Intact (14.0-72.0) pg/mL - Imaging and Cardiology Chest x-ray: report reviewed CT scan - chest: report reviewed MRI - abdomen: report reviewed Assessment and Plan (1) Mediastinal lymphadenopathy Current Visit: Yes Status: Acute Priority: High Code(s): R59.0 - LOCALIZED ENLARGED LYMPH NODES SNOMED Code(s): 30217214 (2) Diffuse large B cell lymphoma Current Visit: No Status: Acute Priority: Medium Code(s): C83.30 - DIFFUSE LARGE B-CELL LYMPHOMA, UNSPECIFIED SITE SNOMED Code(s): 607162699 (3) Pleural effusion, right Current Visit: Yes Status: Acute Priority: High Code(s): J90 - PLEURAL EFFUSION, NOT ELSEWHERE CLASSIFIED SNOMED Code(s): 57117484 (4) Paraproteinemia Current Visit: Yes Status: Acute Priority: Medium Code(s): D89.2 - HYPERGAMMAGLOBULINEMIA, UNSPECIFIED SNOMED Code(s): 906859544 Plan: Mediastinal lymphadenopathy, soft tissue mass: Patient states she has been experiencing dysphagia for the last couple months. Along with an approximate 30 pound weight loss with associated decreased appetite. CT chest obtained on 05/03/2023 revealed decreasing but residual moderate right pleural effusion. With worsening irregular pleural thickening/rind throughout the right hemithorax now measuring up to 1.3 cm thick versus 1.0 cm previously. Focal subpleural soft tissue anterior medial right lower lung measuring up to 3.3 cm. New diffuse subpleural nodularity along the right sided lung fissures. Pleural fluid cytoloy on 04/15/23 was negative for malignancy. -Patient was admitted for bronchoscopy/EBUS for biopsy of noted mediastinal lymph nodes and had procedure on 05/24/[address] Parsons. Per procedure note, mediastinal lymph nodes revealed a 9.5x16 mm station 10 R lymph node, a 7x10 mm station 7 lymph nodes. Biopsies were obtained. -Repeat CT chest on 06/01 revealed diffuse airspace opacities in the right lung. Moderate right pleural effusion. Right upper lung masslike area seen with pleural thickening. Mass of the right upper lung appears increased in size from prior - Pathology positive for malignant neoplasm. Differential includes poorly differentiated non-small cell carcinoma, possible lung origin, versus mesothelioma versus lymphoma. Pathology has been sent to [facility] for further review -Brain MRI ordered and will plan for PET CT outpt to complete staging. MRI brain revealed no evidence of intracranial mass, acute/subacute infarct or abnormal enhancement -Findings and results were discussed in detail with patient and family. All questions answered. Will await final path report, pending [facility] review -Clinic f/u will be scheduled with Dr. Gandhi upon discharge, pending course of ho spitalization and possible need for rehab Afib RVR/SOB: -Went into a-fib RVR post op. Started on cardizem drip, and converted -Progressing SOB x 1 week. -CT chest showing diffuse airspace opacities in the right lung concerning for pneumonia. Chest ultrasound revealed large loculated right pleural effusion, pocket size 7.6 cm. Pulmonology may consider repeat thoracentesis. Patient continues on IV antibiotics. 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 Was in observation with Dr. Gandhi with no noted recurrence of disease, last seen in 2019 Doctor attests: I performed a history and physical examination of this patient, developed impression and plan of care. Discussed with dictator. I agree with dictators note, documented as a scribe.
[2023-06-03 11:53] LABS: Glucose,Whole Blood 95 mg/dL (70-110)
--- NOTE | 2023-06-03 12:31 | P.PN ---
Subjective Progress Note Date: 06/03/23 Patient is a 82-year-old female with a past medical history of coronary artery disease status post quadruple bypass in 2009 in [place], history of non- Hodgkin's lymphoma, hypertension, diabetes type 2, hyperlipidemia, history of SD, osteoarthritis, rheumatoid others, hypothyroidism. Patient was brought to the hospital for bronchoscopy with endoscopic ultrasound and DVT aspiration biopsy of the mediastinal lymph node.. Postprocedure while in the recovery room patient went into atrial fibrillation with rapid ventricular rate and heart rate went up to 130s. EKG showed atrial fibrillation with rapid ventricular rate. Cardizem drip was ordered but before starting the infusion patient converted back to sinus rhythm and heart rate came down to 70s. She was admitted to the hospital for further evaluation Patient was recently admitted to the hospital from 04/15/2023 to 04/21/2023. She is admitted due to worsening shortness of breath, requiring BiPAP. Patient was also found to have right-sided pleural effusion status post paracentesis showed reactive mesothelial cells, macrophages and mixed inflammatory cells. No c cytologically malignant cells identified. CT chest on 04/15/2023 showed large right-sided pleural effusion. Repeat CT on 05/07/2023 showed decreasing but residual moderate right pleural effusion, however there is worsening irregular dural thickening/throughout the right hemithorax now measuring up to 1.3 cm thick versus 1.0 cm previously. Focal subpleural soft tissue anteromedial right lower lung measures up to 3.3 cm and appears new. New diffuse subpleural nodularity along the right-sided lung fissures. Correlate for slight interval neoplastic disease present progression, possible lymphoma. Currently patient denies any complaints of chest pain. No worsening shortness of breath. Denies any palpitations. No nausea vomiting abdominal pain or diarrhea. Patient is on Ventimask which is being titrated down to nasal cannula oxygen. No complaints of fever or chills. No diarrhea. No cough or sputum production. Denies any worsening leg swelling recently. 05/25/2023 Patient is sitting on the side of the bed. Awake alert and oriented x 3. Complains of bloating and abdominal and not able to tolerate oral diet. No bowel movement today. Otherwise patient is having atrial fibrillation with RVR last night on and off. Was started on amiodarone drip and added anticoagulation with Eliquis as per cardiology recommendations. Patient was also found to have elevated free T4 level and low TSH level. Levothyroxine dose reduced to 125 mcg daily from 200 mcg which she takes at home. Otherwise patient has been afebrile. Requiring oxygen via nasal cannula. No c omplaints of chest pain. Does have exertional shortness of breath. Laboratory data showed Pulmonary and cardiology is on board. WBC 11.0 hemoglobin 12.7 platelets 151 Sodium 136 potassium 5.4 chloride 107 bicarb is 19 BUN 59 and creatinine 0.78 and blood sugar 165 TSH 0.276 and free T4 3.66. 05/26/2023 Patient is currently sitting on the side of the bed. Awake alert and oriented x 3. Feels weak and lethargic. Currently on oxygen at 4 L via nasal cannula. Otherwise heart rate is better controlled and amiodarone changed to p.o. Patient did have a swallow evaluation. Recommends EGD as per speech pathology. Otherwise patient has been afebrile. Blood pressure is marginal. Laboratory data reviewed. Cardiology and pulmonary is on board. 05/26. Patient seen and examined. Complaining of back pain. Currently on 3 L of oxygen. Gets short of breath on minimal exertion. Complaining of dysphagia 05/27. Patient seen and examined. Continues to be on 4 L of oxygen. 05/28. Patient seen and examined. General surgery are planning EGD today. Breathing has improved. Denies any chest pain. Vital signs stable lab work done showed WBC 9.29, hemoglobin 9.2, platelet count 131, sodium 133, potassium 5.6 05/29. Patient seen and examined. 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 Patient seen examined. Patient scheduled for repeat EGD today. Patient potassium level was elevated at 5.5, ordered Lokelma. Still complaining of shortness of breath. 05/31. Patient seen and examined.Blood work done this morning showed WBC 10.4, hemoglobin is 12.2, platelet count is 149,. Sodium 137 potassium 5.3, BUN 35.8, creatinine 0.7. Patient complaining of generalized weakness. Appetite has improved. PT and OT recommend rehab, 06/01. Patient seen and examined. Patient was seen by hematology oncology, they ordered MRI brain and outpatient PET scan. Chest x-ray done showed worsening opacity on the right with near complete whiteout appearance of the right hemothorax. CT chest done showed diffuse airspace opacity in the right lung concerning for pneumonia, moderate right pleural effusion, right upper lung masslike area seen in the pleural thickening suggested the mass of the right upper lung appears increased in size from prior. MRI brain negative for any mass or acute stroke. 06/02. Patient seen and examined.. Ultrasound right chest done showed loculated pocket on the right side 7.6 cm in size. Pulmonology recommended IR consult ation for pigtail catheter placement REVIEW OF SYSTEMS: CONSTITUTIONAL: No fever, no malaise,. CARDIOVASCULAR: No chest pain, no palpitations, no syncope. PULMONARY: As mentioned above GASTROINTESTINAL: No diarrhea, no nausea, no vomiting, no abdominal pain. NEUROLOGICAL: No headaches, no weakness, PHYSICAL EXAMINATION: GENERAL: The patient is alert and oriented x3, not in any acute distress. Ill looking HEENT: Pupils are round and equally reacting to light. EOMI. No scleral icterus. No conjunctival pallor. Normocephalic, atraumatic. No pharyngeal erythema. No thyromegaly. CARDIOVASCULAR: S1 and S2 present. No murmurs, rubs, or gallops. PULMONARY: Coarse breath sound bilaterally, bilateral crackles audible ABDOMEN: Soft, nontender, nondistended, normoactive bowel sounds. No palpable organomegaly. MUSCULOSKELETAL: No joint swelling or deformity. EXTREMITIES: No cyanosis, clubbing, or pedal edema. NEUROLOGICAL: Gross neurological examination did not reveal any focal deficits. SKIN: No rashes. Assessment and plan New onset atrial fibrillation with rapid ventricular rate Diffuse subpleural nodularity along the right sided lung fissures correlate for interval neoplastic disease progression. Mediastinal lymphadenopathy. Patient is s/p bronchoscopy and endobronchial ultrasound with needle biopsy on 05/24/2023. Acute hypoxic respiratory failure status post bronchoscopy. Right upper lobe masslike consolidation measuring 4.0 cm in addition to extensive mediastinal lymphadenopathy involving the paratracheal, right hilar and suprahilar area Recent admission with acute hypoxic respiratory failure status post right thoracentesis. fluid cytology negative for malignancy. Chronic CHF with systolic dysfunction ejection fraction 25 to 30%, mid to distal inferolateral and lateral wall hypokinesis and inferior apical wall hypokinesis. Ischemic cardiomyopathy Hyperkalemia Dysphagia Coronary artery disease with prior history of quadruple CABG in 2009 Hypertension Diabetes type 2 [id number] Hyperlipidemia Rheumatoid arthritis not on any treatment currently. Hypothyroidism. Patient has elevated free T4 level. Levothyroxine dose reduced to 125 mcg daily. History of non-Hodgkin's lymphoma status postchemotherapy. Currently in remission. Monitor vital signs Monitor CBC Monitor CMP Continue telemetry monitoring Encourage use of incentive spirometer Continue amiodarone twice daily Continue Eliquis Continue oral Lasix biopsy of the mediastinal lymph node is positive for malignant neoplasm CT chest done on 06/01 showed showed diffuse airspace opacity in the right lung concerning for pneumonia, moderate right pleural effusion, right upper lung masslike area seen in the pleural thickening suggested the mass of the right u pper lung appears increased in size from prior Cardiology following Continue cefepime Pulmonology following IR consulted for pigtail catheter placement 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 Hematology oncology following, ordered MRI brain and PET scan Labs and medication were reviewed.. Continue same treatment. Continue with symptomatic treatment. Resume home medication. Monitor labs and vitals. DVT and GI prophylaxis. Further recommendations as per clinical course of the patient Dictation was produced using [email or web address] dictation software. please excuse any grammatical, word or spelling errors. Objective - Vital Signs Vital signs: Vital Signs Temp 98.1 F 06/03/23 07:16 Pulse 76 06/03/23 07:16 Resp 18 06/03/23 07:16 BP 93/55 06/03/23 07:16 Pulse Ox 91 L 06/03/23 07:16 FiO2 Intake & Output 06/02/23 06/03/23 06/03/23 18:59 06:59 18:59 Other: Voiding Method Toilet # Voids 1 1 - Labs CBC & Chem 7: 06/03/23 02:43 06/03/23 02:38 Labs: Abnormal Lab Results - Last 24 Hours (Table) 06/02/23 06/02/23 06/02/23 Range/Units 11:26 14:28 17:58 RBC (3.80-5.40) m/uL Hgb (11.4-16.0) gm/dL RDW (11.5-15.5) % Plt Count (150-450) k/uL Sodium (137-145) mmol/L Carbon Dioxide (22-30) mmol/L BUN (7-17) mg/dL POC Glucose (mg/dL) 119 H (70-110) mg/dL Plasma Lactic Acid Nic 4.6 H* 4.7 H* (0.7-2.0) mmol/L Total Protein (6.3-8.2) g/dL Albumin (3.5-5.0) g/dL 06/02/23 06/03/23 06/03/23 Range/Units 21:35 02:38 02:43 RBC 3.51 L (3.80-5.40) m/uL Hgb 11.0 L (11.4-16.0) gm/dL RDW 15.6 H (11.5-15.5) % Plt Count 127 L (150-450) k/uL Sodium 131 L (137-145) mmol/L Carbon Dioxide 20 L (22-30) mmol/L BUN 41 H (7-17) mg/dL POC Glucose (mg/dL) (70-110) mg/dL Plasma Lactic Acid Nic 4.5 H* (0.7-2.0) mmol/L Total Protein 4.5 L (6.3-8.2) g/dL Albumin 2.1 L (3.5-5.0) g/dL 06/03/23 06/03/23 Range/Units 02:43 07:08 RBC (3.80-5.40) m/uL Hgb (11.4-16.0) gm/dL RDW (11.5-15.5) % Plt Count (150-450) k/uL Sodium (137-145) mmol/L Carbon Dioxide (22-30) mmol/L BUN (7-17) mg/dL POC Glucose (mg/dL) (70-110) mg/dL Plasma Lactic Acid Nic 3.4 H* 3.2 H* (0.7-2.0) mmol/L Total Protein (6.3-8.2) g/dL Albumin (3.5-5.0) g/dL Microbiology - Last 24 Hours (Table) 06/01/23 18:37 Blood Culture - Preliminary Blood
--- NOTE | 2023-06-03 12:35 | P.PN ---
Subjective patient is seen for follow-up for hyperkalemia and hypercalcemia. Calcium has improved to 9.2 and potassium was 4.6. No significant complaints today. Maintained on oral Lasix Objective - Vital Signs Vital signs: Vital Signs Temp 98.1 F 06/03/23 07:16 Pulse 76 06/03/23 07:16 Resp 18 06/03/23 07:16 BP 93/55 06/03/23 07:16 Pulse Ox 91 L 06/03/23 07:16 FiO2 Intake & Output 06/02/23 06/03/23 06/03/23 18:59 06:59 18:59 Other: Voiding Method Toilet Toilet # Voids 1 1 - Exam patient is awake, comfortable, no acute distress Examination of the heart S1 and S2 Examination of the lungs bilateral breath sounds are heard Abdomen is soft nontender Examination of lower extremities shows trace edema bilaterally HOMEWORKER exam grossly intact - Labs CBC & Chem 7: 06/03/23 02:43 06/03/23 02:38 Labs: Abnormal Lab Results - Last 24 Hours (Table) 06/02/23 06/02/23 06/02/23 Range/Units 14:28 17:58 21:35 RBC (3.80-5.40) m/uL Hgb (11.4-16.0) gm/dL RDW (11.5-15.5) % Plt Count (150-450) k/uL Sodium (137-145) mmol/L Carbon Dioxide (22-30) mmol/L BUN (7-17) mg/dL Plasma Lactic Acid Nic 4.6 H* 4.7 H* 4.5 H* (0.7-2.0) mmol/L Total Protein (6.3-8.2) g/dL Albumin (3.5-5.0) g/dL 06/03/23 06/03/23 06/03/23 Range/Units 02:38 02:43 02:43 RBC 3.51 L (3.80-5.40) m/uL Hgb 11.0 L (11.4-16.0) gm/dL RDW 15.6 H (11.5-15.5) % Plt Count 127 L (150-450) k/uL Sodium 131 L (137-145) mmol/L Carbon Dioxide 20 L (22-30) mmol/L BUN 41 H (7-17) mg/dL Plasma Lactic Acid Nic 3.4 H* (0.7-2.0) mmol/L Total Protein 4.5 L (6.3-8.2) g/dL Albumin 2.1 L (3.5-5.0) g/dL 06/03/23 Range/Units 07:08 RBC (3.80-5.40) m/uL Hgb (11.4-16.0) gm/dL RDW (11.5-15.5) % Plt Count (150-450) k/uL Sodium (137-145) mmol/L Carbon Dioxide (22-30) mmol/L BUN (7-17) mg/dL Plasma Lactic Acid Nic 3.2 H* (0.7-2.0) mmol/L Total Protein (6.3-8.2) g/dL Albumin (3.5-5.0) g/dL Microbiology - Last 24 Hours (Table) 06/01/23 18:37 Blood Culture - Preliminary Blood Assessment and Plan Assessment: 1. Hyperkalemia. Takes lisinopril outpatient but currently held. Blood sugars not elevated. No significant acidosis. No urinary retention. Stable. 2. Hypercalcemia secondary to vitamin D supplementation and concern for underlying malignancy. Vitamin D level 33.1. SCAR level low. PTH low at 5.1. TSH normal. 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 Calcium level better. 3. Dysphagia status post EGD with dilation. Surgery following. 4. A-fib with RVR. Stable. 5. Right upper lobe masslike consolidation with mediastinal lymphadenopathy concerning for malignancy. 6. History of lymphoma. 7. Diabetes mellitus. Plan: DC IV fluids continue with low-dose oral loop diuretics. Repeat labs in a.m.
[2023-06-03 16:48] LABS: Glucose,Whole Blood 84 mg/dL (70-110)
[2023-06-03 20:50] LABS: Glucose,Whole Blood 75 mg/dL (70-110)
[2023-06-04] MEDS: ONDANSETRON 4 MG/2 ML VIAL IVP PRN (01:19)
[2023-06-04 05:52] LABS: Glucose,Whole Blood 81 mg/dL (70-110)
[2023-06-04 09:39] LABS: Basophils # (A) 0.06 X 10*3/uL (0.00-0.10); Basophils % (A) 0.5 %; Eosinophils # (A) 0.55 X 10*3/uL (0.04-0.35); Eosinophils % (A) 4.3 %; HCT 36.8 % (37.2-46.3); HGB 11.3 g/dL (12.0-15.0); Lymphocytes # (A) 3.52 X 10*3/uL (0.90-5.00); Lymphocytes % (A) 27.2 %; MCH 30.1 pg (27.0-32.0); MCHC 30.7 g/dL (32.0-37.0); MCV 97.9 FL (80.0-97.0); Mean Platelet Volume 12.3 FL (9.5-12.2); Monocytes # (A) 0.87 X 10*3/uL (0.20-1.00); Monocytes % (A) 6.7 %; NRBC Per 100 WBC 0 X 10*3/uL (0.00-0.01); Neutrophils # (A) 7.88 X 10*3/uL (1.80-7.70); Platelet Count 161 X 10*3/uL (140-440); RBC 3.76 X 10*6/uL (4.10-5.20); WBC 12.92 X 10*3/uL (4.50-10.00)
[2023-06-04 10:18] LABS: ALT 12 U/L (8-44); AST 18 U/L (13-35); Albumin 2.8 g/dL (3.8-4.9); Alkaline Phosphatase 54 U/L (41-126); Blood Urea Nitrogen 39.7 mg/dL (9.0-27.0); Calcium 9.6 mg/dL (8.7-10.3); Carbon Dioxide 20.2 mmol/L (21.6-31.8); Chloride 105 mmol/L (96-109); Glucose 83 mg/dL (70-110); Sodium 135 mmol/L (135-145); Total Bilirubin 0.3 mg/dL (0.3-1.2); Total Protein 4.8 g/dL (6.2-8.2)
--- NOTE | 2023-06-04 11:29 | P.PN ---
Subjective patient is seen for follow-up for hyperkalemia and hypercalcemia. Calcium has improved to 9.6 and potassium was 5.0 No significant complaints today. Maintained on oral Lasix Objective - Vital Signs Vital signs: Vital Signs Temp 98.1 F 06/04/23 07:21 Pulse 61 06/04/23 08:27 Resp 20 06/04/23 08:27 BP 102/58 06/04/23 01:33 Pulse Ox 96 06/04/23 07:21 FiO2 Intake & Output 06/03/23 06/04/23 06/04/23 18:59 06:59 18:59 Other: Voiding Method Toilet Toilet Toilet # Voids 2 2 - Exam patient is awake, comfortable, no acute distress Examination of the heart S1 and S2 Examination of the lungs bilateral breath sounds are heard Abdomen is soft nontender Examination of lower extremities shows 2+ edema bilaterally SHIRT TRIMMER exam grossly intact - Labs CBC & Chem 7: 06/04/23 05:16 06/04/23 05:16 Labs: Abnormal Lab Results - Last 24 Hours (Table) 06/03/23 06/03/23 06/03/23 Range/Units 11:35 14:48 18:40 WBC (4.50-10.00) X 10*3/uL RBC (4.10-5.20) X 10*6/uL Hgb (12.0-15.0) g/dL Hct (37.2-46.3) % MCV (80.0-97.0) FL MCHC (32.0-37.0) g/dL RDW (11.5-14.5) % MPV (9.5-12.2) FL Neutrophils # (1.80-7.70) X 10*3/uL Eosinophils # (0.04-0.35) X 10*3/uL Carbon Dioxide (21.6-31.8) mmol/L BUN (9.0-27.0) mg/dL Est GFR (CKD-EPI) (>=60) BUN/Creatinine Ratio (12.00-20.00) Ratio Plasma Lactic Acid Nic 3.3 H* 3.0 H* 3.2 H* (0.7-2.0) mmol/L Total Protein (6.2-8.2) g/dL Albumin (3.8-4.9) g/dL Albumin/Globulin Ratio (1.60-3.17) Ratio 06/03/23 06/04/23 06/04/23 Range/Units 21:45 05:16 05:16 WBC 12.92 H (4.50-10.00) X 10*3/uL RBC 3.76 L (4.10-5.20) X 10*6/uL Hgb 11.3 L (12.0-15.0) g/dL Hct 36.8 L (37.2-46.3) % MCV 97.9 H (80.0-97.0) FL MCHC 30.7 L (32.0-37.0) g/dL RDW 16.0 H (11.5-14.5) % MPV 12.3 H (9.5-12.2) FL Neutrophils # 7.88 H (1.80-7.70) X 10*3/uL Eosinophils # 0.55 H (0.04-0.35) X 10*3/uL Carbon Dioxide 20.2 L (21.6-31.8) mmol/L BUN 39.7 H (9.0-27.0) mg/dL Est GFR (CKD-EPI) 56 L (>=60) BUN/Creatinine Ratio 39.70 H (12.00-20.00) Ratio Plasma Lactic Acid Nic 2.3 H* (0.7-2.0) mmol/L Total Protein 4.8 L (6.2-8.2) g/dL Albumin 2.8 L (3.8-4.9) g/dL Albumin/Globulin Ratio 1.40 L (1.60-3.17) Ratio Microbiology - Last 24 Hours (Table) 06/01/23 18:37 Blood Culture - Preliminary Blood Assessment and Plan Assessment: 1. Hyperkalemia. Takes lisinopril outpatient but currently held. Blood sugars not elevated. No significant acidosis. No urinary retention. Stable. Maintained on room diuretics 2. Hypercalcemia secondary to vitamin D supplementation and concern for underlying malignancy. Vitamin D level 33.1. SCAR level low. PTH low at 5.1. TSH normal. 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 Calcium level better. 3. Dysphagia status post EGD with dilation. Surgery following. 4. A-fib with RVR. Stable. 5. Right upper lobe masslike consolidation with mediastinal lymphadenopathy concerning for malignancy. 6. History of lymphoma. 7. Diabetes mellitus. Plan: DC IV fluids increase Lasix to 40 mg daily Repeat labs in a.m.
[2023-06-04 11:50] LABS: Glucose,Whole Blood 93 mg/dL (70-110)
[2023-06-04] MEDS: FUROSEMIDE 40 MG TAB PO SCH (11:54)
--- NOTE | 2023-06-04 12:00 | P.PN ---
Subjective Progress Note Date: 06/04/23 This is a 82-year-old female patient was suspected to have malignancy. The patient has been having progressive worsening in her health status in general. She has not been eating. She has been extremely weak and debilitated. She was in the hospital approximately a month ago and at that time she came in with acute hypoxic respiratory failure and the patient was initially supported with BiPAP and subsequently was found to have a right-sided pleural effusion. I performed a bedside thoracentesis on this patient and a total of 1.6 L of fluid was aspirated and fluid cytology was negative for malignancy. Echocardiogram showed impaired LV function with an EF of around 25 to 30% and there was some mid to distal anterolateral wall hypokinesis and apical hypokinesis. The patient also had mild to moderate aortic valve calcification without any stenosis. She is subsequent CAT scan of the chest showed a loculated moderate- sized right-sided pleural effusion and irregular pleural wall thickening and the rind throughout the right hemithorax up to 1.3 cm in size and there was also what seems to be right upper lobe mass with extension into the mediastinum in addition to lymphadenopathy within the right hilum measuring around 2.3 cm in size and right suprahilar measuring 1.9 cm in size and in the subcarinal area in addition. There was a mass in the right upper lobe that is pleural-based opacity measuring 4.0 cm in size. Of significance was extensive pleural surface irregularity and nodular structures and this was obviously a manifestation of a neoplastic process and the concern was adenocarcinoma versus mesothelioma versus lymphoma as the patient is known to have a previous history of lymphoma. This was explained to the patient and the family members at length. Family was adamant in establishing a diagnosis. Based on that, the patient was brought in today patient underwent an endobronchial ultrasound under general anesthesia. I did not biopsy the right upper lobe mass. I was going more conservative because of her medical problems and I ended up doing a transbronchial needle aspirate of station 10 R and station 7 lymph nodes. Note that following her procedure, the patient was extubated and she got transferred to recovery where she went into A- fib RVR. I ordered Cardizem drip and this was not started and by the time she was about to start the Cardizem she converted to normal sinus rhythm. I discussed the findings with the family. The family told me that the patient's condition was progressively getting worse and she was not eating and they were very much concerned about her health in general and they wanted to keep her in the hospital. As such, the patient will be hospitalized to telemetry unit. She is known to have a left atrial ejection fraction of 25%. She is also known to have history of rheumatoid arthritis and she is currently off Remicade. She has diabetes mellitus type 2, coronary artery disease, hyperlipidemia, hyperlipidemia, remote history of non-Hodgkin's lymphoma. On today's evaluation of 05/25/2023, the patient is stable on 4L of oxygen by nasal cannula. Her cardiac rhythm is back to sinus. She is started on anticoagulation and she is currently on Eliquis. She is also on Lasix 20 mg p.o. daily. She is on Coreg 6.25 mg twice a day. Denies having any new complaints. The white cell count 11 with a hemoglobin 12.7 and a platelet count of 151. Sodium is at 136, BUN is at 59 with a creatinine of 0.7 and a potassium level is at 5.4. Thyroid function test shows a TSH free of 3.66 with a free T4 of 0.276. The patient remains on levothyroxine at 125 mcg p.o. daily. The dose of the thyroid has been modified and the patient has been just from 200 mcg on 225. On today's evaluation of 05/26/2023, the patient is resting comfortably in bed. No specific complaints. She is lethargic and weak. She remains on 40s of oxygen by nasal cannula with a pulse ox of 94%. Results of the biopsy are still pending for now. The patient has no significant complaints. The patient has chest wall pain on the right. This is an ongoing chronic problem dated 2 abnormalities that were described earlier. The patient is currently in normal sinus mechanism. The patient's thyroid dose has been i adjusted by the medical group. Collection Officer also on the case. On today's evaluation of 05/27/2023, the patient is resting comfortably in bed. No specific complaints. Awaiting the results of the biopsy. WBC count is at 10.5 and hemoglobin 12 .7 and a platelet count of 135. The rest of the blood work shows a BUN of 62 with a creatinine of 1.09 and sodium levels at 131 with a potassium level of 5.8. The patient's is resting comfortably in bed. No other issues for now. She is complaining of pain along the right lateral chest area. She remains on anticoagulation with Eliquis 5 mg p.o. twice a day. She remains on her routine outpatient medications. Surgical consultation for dysphagia was done. Patient will be given an upper GI esophagogram and further workup regarding this dysphagia will be done depending on the results of the endobronchial ultrasound biopsies from the mediastinum. Highly suspicious for malignancy as mentioned. On today's evaluation of 05/28/2023, the patient resting comfortably in bed. No change in her condition. Awaiting final pathology from the biopsies and she should this should be available by Monday. Meanwhile, the patient has no specific complaints. She remains on 4 L with a pulse ox of 95%. Resting comfortably in bed. Pain remains unchanged. The patient is seen today May 29, 2023 in follow-up on the regular medical floor. She was initially here for an elective lung biopsy on May 24, 2023 but developed atrial fibrillation with a rapid ventricular response in the recovery room. She has been initiated on amiodarone. Anticoagulated with Eliquis. Pathology is still pending. She is maintaining O2 saturations in the 90s on 4 L/min per nasal cannula. She did undergo EGD today due to her dysphagia, unintentional weight loss and anticoagulant use. 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 White count 9.2. Hemoglobin 11.2. Platelets 131. Sodium 133. Potassium 5.6. Bicarb 24. BUN 44. Creatinine 0.8. Glucose 90. Patient was reevaluated today on 05/30/2023, pulmonary dos santos the patient is doing great, however she has GI issues being addressed by general surgery on the case. EGD on 05/28 showed AV malformation of the stomach surgery is still recommending holding anticoagulation until they do EGD dilatation which is scheduled for 05/05. Pulmonary dos santos no cough no wheezing no shortness of breath. And her atrial fibrillation seems to be relatively under control patient remains on 4 L nasal cannula with O2 sats of 96%, blood pressure 107/64, and A-fib seems to be controlled The patient is seen today May 31, 2023 in follow-up on the regular medical floor. She is awake and alert in no acute distress. She did undergo repeat EGD with rigid dilator for esophageal dilatation. Blood thinner Eliquis will be held for 48 hours. Ground diet recommended. Sodium 132. Potassium 5.5. Bicarb 22. BUN 40. Creatinine 0.78. Glucose 108. She remains on amiodarone. Continued on diuretics. Continued on Protonix. The patient is seen today June 01, 2023 in follow-up on the regular medical floor. She is resting comfortably in bed. Awake and alert in no acute distress. Maintaining O2 saturations in the 90s on 4 L/min per nasal cannula. White count 10.4. Hemoglobin 12.2. Platelets 149. Sodium 136. Potassium 5.3. Bicarb 24. BUN 36. Creatinine 0.7. Glucose 98. Initial pathology from fine- needle aspirate of the mediastinal lymph nodes revealed positive for malignant neoplasm however final results have been sent out to the [facility] and are pending. The patient is seen today June 02, 2023 in follow-up on the regular medical floor. She had gone down for CT scan of the chest and a MRI of the brain which was negative for metastasis. CT scan of the chest however revealing worsening and diffuse airspace opacities of the right lung. Moderate right pleural effusion. Right upper lung masslike area with pleural thickening. Biopsies reveal possible poorly differentiated non-small cell carcinoma likely adenocarcinoma of the lung origin versus mesothelioma versus less likely lymphoma. Results from [facility] are pending. She is maintaining good O2 saturations in the 90s on 4 L/min per nasal cannula. Afebrile. Hemodynamically stable. Glucose 119. Lactic acid 4.6. He remains on cefepime. Anticoagulated with Eliquis. The patient is seen today June 03, 2023 in follow-up on the regular medical floor. She is currently sitting up in bed. Awake and alert in no acute dis tress. Denies any worsening shortness of breath. She has a loose congested cough. No fever or chills. Maintaining O2 saturation in the low 90s on 5 L/min per nasal cannula. She is afebrile. Ultrasound of the right chest reveals a 7.6 cm loculated pocket. Blood culture revealed no growth. Biopsies reveal possible poorly differentiated non-small cell carcinoma likely adenocarcinoma of the lung origin versus mesothelioma versus less likely lymphoma. Results from [facility] are pending. White count 9.2. Hemoglobin 11.0. Platelets 127. Sodium 131. Potassium 4.6. Bicarb 20. BUN 41. Creatinine 0.86. He remains on cefepime. Continue on oral diuretics. The patient is seen today June 04, 2023 in follow-up on the regular medical floor. She is currently up in a chair at the bedside. She denies any worsening shortness of breath, cough or congestion. She is still dyspneic with exertion. She is maintaining good O2 saturations in the mid 90s on 4 L/min per nasal can nula. She is afebrile. Hemodynamically stable. Blood culture reveals no growth. White count 12.9. Hemoglobin 11.3. Platelets 161. Sodium 135. Potassium 5.0. Bicarb 20. BUN 40. Creatinine 1.0. Glucose 83. She is continued on cefepime. Remains on oral diuretics. Objective - Vital Signs Vital signs: Vital Signs Temp 98.1 F 06/04/23 07:21 Pulse 61 06/04/23 08:27 Resp 20 06/04/23 08:27 BP 102/58 06/04/23 01:33 Pulse Ox 96 06/04/23 07:21 FiO2 Intake & Output 06/03/23 06/04/23 06/04/23 18:59 06:59 18:59 Other: Voiding Method Toilet Toilet Toilet # Voids 2 2 - Exam GENERAL EXAM: Alert, frail 82-year-old female, sitting up in a chair, on 4 L nasal cannula, in no apparent distress. HEAD: Normocephalic. EYES: Normal reaction of pupils, equal size. NOSE: Clear with pink turbinates. THROAT: No erythema or exudates. NECK: No masses, no JVD. CHEST: No chest wall deformity. LUNGS: Equal air entry with few scattered rhonchi, diminished in the right lung. CVS: S1 and S2 normal with no audible murmur, regular rhythm. ABDOMEN: No hepatosplenomegaly, normal bowel sounds, no guarding or rigidity. SPINE: No scoliosis or deformity SKIN: No rashes CENTRAL NERVOUS SYSTEM: No focal deficits, tone is normal in all 4 extremities. EXTREMITIES: There is no peripheral edema. No clubbing, no cyanosis. Peripheral pulses are intact. - Labs CBC & Chem 7: 06/04/23 05:16 06/04/23 05:16 Labs: Abnormal Lab Results - Last 24 Hours (Table) 06/03/23 06/03/23 06/03/23 Range/Units 11:35 14:48 18:40 WBC (4.50-10.00) X 10*3/uL RBC (4.10-5.20) X 10*6/uL Hgb (12.0-15.0) g/dL Hct (37.2-46.3) % MCV (80.0-97.0) FL MCHC (32.0-37.0) g/dL RDW (11.5-14.5) % MPV (9.5-12.2) FL Neutrophils # (1.80-7.70) X 10*3/uL Eosinophils # (0.04-0.35) X 10*3/uL Carbon Dioxide (21.6-31.8) mmol/L BUN (9.0-27.0) mg/dL Est GFR (CKD-EPI) (>=60) BUN/Creatinine Ratio (12.00-20.00) Ratio Plasma Lactic Acid Nic 3.3 H* 3.0 H* 3.2 H* (0.7-2.0) mmol/L Total Protein (6.2-8.2) g/dL Albumin (3.8-4.9) g/dL Albumin/Globulin Ratio (1.60-3.17) Ratio 06/03/23 06/04/23 06/04/23 Range/Units 21:45 05:16 05:16 WBC 12.92 H (4.50-10.00) X 10*3/uL RBC 3.76 L (4.10-5.20) X 10*6/uL Hgb 11.3 L (12.0-15.0) g/dL Hct 36.8 L (37.2-46.3) % MCV 97.9 H (80.0-97.0) FL MCHC 30.7 L (32.0-37.0) g/dL RDW 16.0 H (11.5-14.5) % MPV 12.3 H (9.5-12.2) FL Neutrophils # 7.88 H (1.80-7.70) X 10*3/uL Eosinophils # 0.55 H (0.04-0.35) X 10*3/uL Carbon Dioxide 20.2 L (21.6-31.8) mmol/L BUN 39.7 H (9.0-27.0) mg/dL Est GFR (CKD-EPI) 56 L (>=60) BUN/Creatinine Ratio 39.70 H (12.00-20.00) Ratio Plasma Lactic Acid Nic 2.3 H* (0.7-2.0) mmol/L Total Protein 4.8 L (6.2-8.2) g/dL Albumin 2.8 L (3.8-4.9) g/dL Albumin/Globulin Ratio 1.40 L (1.60-3.17) Ratio Microbiology - Last 24 Hours (Table) 06/01/23 18:37 Blood Culture - Preliminary Blood Assessment and Plan Assessment: New onset atrial fibrillation with RVR, converted to normal sinus rhythm and the patient Is currently hemodynamically stable. Patient is currently on Cordarone and Coreg. Anticoagulation with Eliquis, currently on hold for procedures. Acute hypoxic respiratory failure post bronchoscopy May 24 2023 and the p atmarilee is currently on 4 L of oxygen by nasal cannula. Chest x-ray findings are stable and is consistent with a right upper lobe mass, pleural thickening and loculated right-sided pleural effusion. CT scan of the chest June 02, 2023 now revealing diffuse airspace opacities in the right lung. Moderate right pleural effusion. Ultrasound of the right chest reveals a loculated 7.2 cm pocket. Req uested IR for pigtail catheter placement She did undergo EGD today May 29, 2023 due to her dysphagia, unintentional weight loss and anticoagulant use. 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 She did undergo follow-up EGD May 31, 2023 for esophageal dilatation. Right upper lobe masslike consolidation measuring 4.0 cm in addition to extensive mediastinal lymphadenopathy involving the paratracheal, right hilar and suprahilar area and the patient has significant pleural surface irregularities and multiloculated right-sided pleural effusions. Note that the pleural surface is quite thickened and is reaching approximately 1.3 cm with significant irregularities and previous thoracentesis yielded no final pathology diagnosis. She did undergo an endobronchial ultrasound and biopsy of the mediastinal lymph nodes on May 24, 2023. Biopsies reveal possible poorly differentiated non-small cell carcinoma likely adenocarcinoma of the lung origin versus mesothelioma versus less likely lymphoma. Results from [facility] are pending. Mediastinal lymphadenopathy detail discussed above, awaiting final pathology post biopsy Chest wall pain with an irregular pleural surface border with multiple nodularities and secondary pain. This is likely malignant process. Rule out mesothelioma versus adenocarcinoma versus lymphoma. Offered nonsteroidal anti-i nflammatory medications for pain control. Pleural effusion with previous thoracentesis removed approximately 1.6 to 2 L of pleural fluid from the right lung. The fluid was exudative. The fluid cytology came back negative for malignancy Coronary arteriosclerosis with previous coronary artery bypass grafting Chronic systolic heart failure diagnosed by an echocardiogram that was done and the patient has ejection fraction of 25% and she has some edema in lower extremities and she is seeing cardiology and she is currently on diuretics and she is taking Lasix at a dose of 40 mg once a day Non-Hodgkin's lymphoma (clinical) She is in remission and she was diagnosed in 2013 and she has completed the chemotherapy. This involved the jaw and the head and neck Type 2 diabetes mellitus Maintained on Metformin and glyburide Rheumatoid arthritis On no treatment and she is off Ramicade Medical debility along with weight loss and diminished appetite and failure to thrive Plan: The patient was seen and evaluated Labs and medications reviewed Final pathology results from [facility] still pending Fluid in the right chest is loculated Consulted interventional radiology to place a pigtail catheter Continue to hold Eliquis Prognosis is guarded This patient was seen independently by the pulmonary nurse practitioner addressing pulmonary issues I have personally seen and examined the patient, performed the documentation and the assessment and plan as written. Number of minutes spent on the visit: 24.
--- NOTE | 2023-06-04 13:22 | P.PN ---
Subjective Progress Note Date: 06/04/23 Patient is a 82-year-old female with a past medical history of coronary artery disease status post quadruple bypass in 2009 in [place], history of non- Hodgkin's lymphoma, hypertension, diabetes type 2, hyperlipidemia, history of SD, osteoarthritis, rheumatoid others, hypothyroidism. Patient was brought to the hospital for bronchoscopy with endoscopic ultrasound and DVT aspiration biopsy of the mediastinal lymph node.. Postprocedure while in the recovery room patient went into atrial fibrillation with rapid ventricular rate and heart rate went up to 130s. EKG showed atrial fibrillation with rapid ventricular rate. Cardizem drip was ordered but before starting the infusion patient converted back to sinus rhythm and heart rate came down to 70s. She was admitted to the hospital for further evaluation Patient was recently admitted to the hospital from 04/15/2023 to 04/21/2023. She is admitted due to worsening shortness of breath, requiring BiPAP. Patient was also found to have right-sided pleural effusion status post paracentesis showed reactive mesothelial cells, macrophages and mixed inflammatory cells. No c cytologically malignant cells identified. CT chest on 04/15/2023 showed large right-sided pleural effusion. Repeat CT on 05/07/2023 showed decreasing but residual moderate right pleural effusion, however there is worsening irregular dural thickening/throughout the right hemithorax now measuring up to 1.3 cm thick versus 1.0 cm previously. Focal subpleural soft tissue anteromedial right lower lung measures up to 3.3 cm and appears new. New diffuse subpleural nodularity along the right-sided lung fissures. Correlate for slight interval neoplastic disease present progression, possible lymphoma. Currently patient denies any complaints of chest pain. No worsening shortness of breath. Denies any palpitations. No nausea vomiting abdominal pain or diarrhea. Patient is on Ventimask which is being titrated down to nasal cannula oxygen. No complaints of fever or chills. No diarrhea. No cough or sputum production. Denies any worsening leg swelling recently. 05/25/2023 Patient is sitting on the side of the bed. Awake alert and oriented x 3. Complains of bloating and abdominal and not able to tolerate oral diet. No bowel movement today. Otherwise patient is having atrial fibrillation with RVR last night on and off. Was started on amiodarone drip and added anticoagulation with Eliquis as per cardiology recommendations. Patient was also found to have elevated free T4 level and low TSH level. Levothyroxine dose reduced to 125 mcg daily from 200 mcg which she takes at home. Otherwise patient has been afebrile. Requiring oxygen via nasal cannula. No c omplaints of chest pain. Does have exertional shortness of breath. Laboratory data showed Pulmonary and cardiology is on board. WBC 11.0 hemoglobin 12.7 platelets 151 Sodium 136 potassium 5.4 chloride 107 bicarb is 19 BUN 59 and creatinine 0.78 and blood sugar 165 TSH 0.276 and free T4 3.66. 05/26/2023 Patient is currently sitting on the side of the bed. Awake alert and oriented x 3. Feels weak and lethargic. Currently on oxygen at 4 L via nasal cannula. Otherwise heart rate is better controlled and amiodarone changed to p.o. Patient did have a swallow evaluation. Recommends EGD as per speech pathology. Otherwise patient has been afebrile. Blood pressure is marginal. Laboratory data reviewed. Cardiology and pulmonary is on board. 05/26. Patient seen and examined. Complaining of back pain. Currently on 3 L of oxygen. Gets short of breath on minimal exertion. Complaining of dysphagia 05/27. Patient seen and examined. Continues to be on 4 L of oxygen. 05/28. Patient seen and examined. General surgery are planning EGD today. Breathing has improved. Denies any chest pain. Vital signs stable lab work done showed WBC 9.29, hemoglobin 9.2, platelet count 131, sodium 133, potassium 5.6 05/29. Patient seen and examined. 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 Patient seen examined. Patient scheduled for repeat EGD today. Patient potassium level was elevated at 5.5, ordered Lokelma. Still complaining of shortness of breath. 05/31. Patient seen and examined.Blood work done this morning showed WBC 10.4, hemoglobin is 12.2, platelet count is 149,. Sodium 137 potassium 5.3, BUN 35.8, creatinine 0.7. Patient complaining of generalized weakness. Appetite has improved. PT and OT recommend rehab, 06/01. Patient seen and examined. Patient was seen by hematology oncology, they ordered MRI brain and outpatient PET scan. Chest x-ray done showed worsening opacity on the right with near complete whiteout appearance of the right hemothorax. CT chest done showed diffuse airspace opacity in the right lung concerning for pneumonia, moderate right pleural effusion, right upper lung masslike area seen in the pleural thickening suggested the mass of the right upper lung appears increased in size from prior. MRI brain negative for any mass or acute stroke. 06/02. Patient seen and examined.. Ultrasound right chest done showed loculated pocket on the right side 7.6 cm in size. Pulmonology recommended IR consult ation for pigtail catheter placement 06/03. Patient seen and examined. Blood work done this morning showed WBC 12.92, hemoglobin 0.3, platelet count 161, pulmonology recommend pigtail catheter placement. Patient was sitting upright in the chair, stated breathing remains the same as yesterday REVIEW OF SYSTEMS: CONSTITUTIONAL: No fever, no malaise,. CARDIOVASCULAR: No chest pain, no palpitations, no syncope. PULMONARY: As mentioned above GASTROINTESTINAL: No diarrhea, no nausea, no vomiting, no abdominal pain. NEUROLOGICAL: No headaches, no weakness, PHYSICAL EXAMINATION: GENERAL: The patient is alert and oriented x3, not in any acute distress. Ill looking HEENT: Pupils are round and equally reacting to light. EOMI. No scleral icterus. No conjunctival pallor. Normocephalic, atraumatic. No pharyngeal erythema. No thyromegaly. CARDIOVASCULAR: S1 and S2 present. No murmurs, rubs, or gallops. PULMONARY: Coarse breath sound bilaterally, bilateral crackles audible ABDOMEN: Soft, nontender, nondistended, normoactive bowel sounds. No palpable organomegaly. MUSCULOSKELETAL: No joint swelling or deformity. EXTREMITIES: No cyanosis, clubbing, or pedal edema. NEUROLOGICAL: Gross neurological examination did not reveal any focal deficits. SKIN: No rashes. Assessment and plan New onset atrial fibrillation with rapid ventricular rate Diffuse subpleural nodularity along the right sided lung fissures correlate for interval neoplastic disease progression. Mediastinal lymphadenopathy. Patient is s/p bronchoscopy and endobronchial ultrasound with needle biopsy on 05/24/2023. Acute hypoxic respiratory failure status post bronchoscopy. Right upper lobe masslike consolidation measuring 4.0 cm in addition to extensive mediastinal lymphadenopathy involving the paratracheal, right hilar and suprahilar area Recent admission with acute hypoxic respiratory failure status post right thoracentesis. fluid cytology negative for malignancy. Chronic CHF with systolic dysfunction ejection fraction 25 to 30%, mid to distal inferolateral and lateral wall hypokinesis and inferior apical wall hypokinesis. Ischemic cardiomyopathy Hyperkalemia Dysphagia Coronary artery disease with prior history of quadruple CABG in 2009 Hypertension Diabetes type 2 [id number] Hyperlipidemia Rheumatoid arthritis not on any treatment currently. Hypothyroidism. Patient has elevated free T4 level. Levothyroxine dose reduced to 125 mcg daily. History of non-Hodgkin's lymphoma status postchemotherapy. Currently in remission. Monitor vital signs Monitor CBC Monitor CMP Continue telemetry monitoring Encourage use of incentive spirometer Continue amiodarone twice daily Continue Eliquis, currently on hold for pigtail catheter placement Continue oral Lasix biopsy of the mediastinal lymph node is positive for malignant neoplasm CT chest done on 06/01 showed showed diffuse airspace opacity in the right lung concerning for pneumonia, moderate right pleural effusion, right upper lung masslike area seen in the pleural thickening suggested the mass of the right upper lung appears increased in size from prior Cardiology following Continue cefepime Pulmonology following IR consulted for pigtail catheter placement 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 Hematology oncology following, ordered MRI brain and PET scan Labs and medication were reviewed.. Continue same treatment. Continue with symptomatic treatment. Resume home medication. Monitor labs and vitals. DVT and GI prophylaxis. Further recommendations as per clinical course of the patient Dictation was produced using [employer] dictation software. please excuse any grammatical, word or spelling errors. Objective - Vital Signs Vital signs: Vital Signs Temp 98.5 F 06/04/23 01:33 Pulse 61 06/04/23 08:27 Resp 20 06/04/23 08:27 BP 102/58 06/04/23 01:33 Pulse Ox 96 06/04/23 01:33 FiO2 Intake & Output 06/03/23 06/04/23 06/04/23 18:59 06:59 18:59 Other: Voiding Method Toilet Toilet Toilet # Voids 2 2 - Labs CBC & Chem 7: 06/04/23 05:16 06/04/23 05:16 Labs: Abnormal Lab Results - Last 24 Hours (Table) 0306/03/23 06/03/23 Range/Units 11:35 14:48 18:40 WBC (4.50-10.00) X 10*3/uL RBC (4.10-5.20) X 10*6/uL Hgb (12.0-15.0) g/dL Hct (37.2-46.3) % MCV (80.0-97.0) FL MCHC (32.0-37.0) g/dL RDW (11.5-14.5) % MPV (9.5-12.2) FL Neutrophils # (1.80-7.70) X 10*3/uL Eosinophils # (0.04-0.35) X 10*3/uL Plasma Lactic Acid Nic 3.3 H* 3.0 H* 3.2 H* (0.7-2.0) mmol/L 06/03/23 06/04/23 Range/Units 21:45 05:16 WBC 12.92 H (4.50-10.00) X 10*3/uL RBC 3.76 L (4.10-5.20) X 10*6/uL Hgb 11.3 L (12.0-15.0) g/dL Hct 36.8 L (37.2-46.3) % MCV 97.9 H (80.0-97.0) FL MCHC 30.7 L (32.0-37.0) g/dL RDW 16.0 H (11.5-14.5) % MPV 12.3 H (9.5-12.2) FL Neutrophils # 7.88 H (1.80-7.70) X 10*3/uL Eosinophils # 0.55 H (0.04-0.35) X 10*3/uL Plasma Lactic Acid Nic 2.3 H* (0.7-2.0) mmol/L Microbiology - Last 24 Hours (Table) 06/01/23 18:37 Blood Culture - Preliminary Blood
[2023-06-04 16:27] LABS: Glucose,Whole Blood 93 mg/dL (70-110)
[2023-06-04 20:35] LABS: Glucose,Whole Blood 88 mg/dL (70-110)
[2023-06-05 05:59] LABS: Glucose,Whole Blood 154 mg/dL (70-110)
[2023-06-05 09:48] LABS: African American GFR (CKD) 48 (>60 ml/min/1.73 sqM); Anion Gap 6 mmol/L; Blood Urea Nitrogen 50 mg/dL (7-17); Calcium 8.6 mg/dL (8.4-10.2); Carbon Dioxide 19 mmol/L (22-30); Chloride 106 mmol/L (98-107); Glucose 76 mg/dL (74-99); Non-African American GFR(CKD) 42 (>60 ml/min/1.73 sqM); Potassium 4.7 mmol/L (3.5-5.1); Sodium 131 mmol/L (137-145)
--- NOTE | 2023-06-05 10:14 | P.PN ---
Subjective patient is seen for follow-up for hyperkalemia and hypercalcemia. Maintained on oral Lasix voiding on her own. serum creatinine at 1.2 today and potassium is 4.7. Objective - Vital Signs Vital signs: Vital Signs Temp 97.9 F 06/05/23 07:35 Pulse 67 06/05/23 07:35 Resp 19 06/05/23 07:35 BP 93/53 06/05/23 07:35 Pulse Ox 91 L 06/05/23 10:01 FiO2 Intake & Output 06/04/23 06/05/23 06/05/23 18:59 06:59 18:59 Other: Voiding Method Toilet Toilet - Exam patient is awake, comfortable, no acute distress Examination of the heart S1 and S2 Examination of the lungs bilateral breath sounds are heard Abdomen is soft nontender Examination of lower extremities shows 1+ edema bilaterally [employer] exam grossly intact - Labs CBC & Chem 7: 06/04/23 05:16 06/05/23 08:55 Labs: Abnormal Lab Results - Last 24 Hours (Table) 06/04/23 06/05/23 06/05/23 Range/Units 05:16 05:57 08:55 Sodium 131 L (137-145) mmol/L Carbon Dioxide 20.2 L 19 L (21.6-31.8) mmol/L BUN 39.7 H 50 H (9.0-27.0) mg/dL Creatinine 1.20 H (0.52-1.04) mg/dL Est GFR (CKD-EPI) 56 L (>=60) BUN/Creatinine Ratio 39.70 H (12.00-20.00) Ratio POC Glucose (mg/dL) 154 H (70-110) mg/dL Total Protein 4.8 L (6.2-8.2) g/dL Albumin 2.8 L (3.8-4.9) g/dL Albumin/Globulin Ratio 1.40 L (1.60-3.17) Ratio Microbiology - Last 24 Hours (Table) 06/01/23 18:37 Blood Culture - Preliminary Blood Assessment and Plan Assessment: 1. Hyperkalemia. Takes lisinopril outpatient but currently held. Blood sugars not elevated. No significant acidosis. No urinary retention. Stable. Maintained on loop diuretics 2. Hypercalcemia secondary to vitamin D supplementation and concern for underlying malignancy. Vitamin D level 33.1. SCAR level low. PTH low at 5.1. TSH normal. 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 Calcium level better. 3. Dysphagia status post EGD with dilation. Surgery following. 4. A-fib with RVR. Stable. 5. Right upper lobe masslike consolidation with mediastinal lymphadenopathy concerning for malignancy. 6. History of lymphoma. 7. Diabetes mellitus. Plan: continue off of IV fluids continue current dose of Lasix Repeat labs in a.m.
[2023-06-05 10:32] LABS: INR 1.7 (<1.2); Prothrombin Time 16.9 sec (10.0-12.5)
--- NOTE | 2023-06-05 12:49 | CT ---
EXAMINATION TYPE: CT chest tube insertion, US guided chest tube insertion DATE OF EXAM: 06/05/2023 12:34 PM CLINICAL INDICATION:Female, 82 years old with history of verify chest tube placement; chest tube inse ion, [facility] COMPARISON: CT chest 06/02/2023. TECHNIQUE: Ultrasound-guided pigtail catheter placement, CT-guided pigtail catheter placement. CT DLP: 1372 mGycm, Automated exposure control for dose reduction was used. Contrast used: mL of , none Oral contrast used: none ATTENDING: Дмитрий Nelson D.O. PROCEDURE: Informed consent was obtained. Safe access in the right pleural effusion was identified via ultrasoun d. The safest allowable access to the right pleural space. The patient was then prepped and draped in the usual sterile fashion. Local anesthesia was provided. Trocar technique was used with a 8-[place] pigtail catheter placed into right pleural space. No aspiration of fluid returned. A second attempt w as made. CT was used to to check tube placement. The tube is not in the appropriate position. A CT-gu ided chest tube was then performed. DLP administered was [address] localizer images were taken which showed safest allowable access to the right pleural spac e. The patient was prepped, draped in the usual sterile fashion, and locally anesthetized. A 8.5 yoon [facility] pig tail catheter was placed via trocar technique right pleural space. Approximately 60 mL of serosanguineous fluid was drained and sent to the lab for analysis. A vacuum drainage bag was then attached the catheter. There was no significant blood loss and post-procedure hemostasis was achieved. The patient tolerated the procedure well without complication. Patient was transferred to the general medical floor in stable condition. IMPRESSION: CT guided placement of a percutaneous pigtail drainage catheter within the right pleural space.
[2023-06-05 13:14] LABS: Glucose,Whole Blood 85 mg/dL (70-110)
[2023-06-05 13:29] LABS: Free Lambda Lt Chain Qnt, Seru 5.4 mg/dL (0.57-2.63)
[2023-06-05 13:54] LABS: Free Kappa Lt Chain Qnt, Serum 11.55 mg/dL (0.33-1.94)
--- NOTE | 2023-06-05 14:21 | P.PN ---
Subjective Progress Note Date: 06/05/23 This is a 82-year-old female patient was suspected to have malignancy. The patient has been having progressive worsening in her health status in general. She has not been eating. She has been extremely weak and debilitated. She was in the hospital approximately a month ago and at that time she came in with acute hypoxic respiratory failure and the patient was initially supported with BiPAP and subsequently was found to have a right-sided pleural effusion. I performed a bedside thoracentesis on this patient and a total of 1.6 L of fluid was aspirated and fluid cytology was negative for malignancy. Echocardiogram showed impaired LV function with an EF of around 25 to 30% and there was some mid to distal anterolateral wall hypokinesis and apical hypokinesis. The patient also had mild to moderate aortic valve calcification without any stenosis. She is subsequent CAT scan of the chest showed a loculated moderate- sized right-sided pleural effusion and irregular pleural wall thickening and the rind throughout the right hemithorax up to 1.3 cm in size and there was also what seems to be right upper lobe mass with extension into the mediastinum in addition to lymphadenopathy within the right hilum measuring around 2.3 cm in size and right suprahilar measuring 1.9 cm in size and in the subcarinal area in addition. There was a mass in the right upper lobe that is pleural-based opacity measuring 4.0 cm in size. Of significance was extensive pleural surface irregularity and nodular structures and this was obviously a manifestation of a neoplastic process and the concern was adenocarcinoma versus mesothelioma versus lymphoma as the patient is known to have a previous history of lymphoma. This was explained to the patient and the family members at length. Family was adamant in establishing a diagnosis. Based on that, the patient was brought in today patient underwent an endobronchial ultrasound under general anesthesia. I did not biopsy the right upper lobe mass. I was going more conservative because of her medical problems and I ended up doing a transbronchial needle aspirate of station 10 R and station 7 lymph nodes. Note that following her procedure, the patient was extubated and she got transferred to recovery where she went into A- fib RVR. I ordered Cardizem drip and this was not started and by the time she was about to start the Cardizem she converted to normal sinus rhythm. I discussed the findings with the family. The family told me that the patient's condition was progressively getting worse and she was not eating and they were very much concerned about her health in general and they wanted to keep her in the hospital. As such, the patient will be hospitalized to telemetry unit. She is known to have a left atrial ejection fraction of 25%. She is also known to have history of rheumatoid arthritis and she is currently off Remicade. She has diabetes mellitus type 2, coronary artery disease, hyperlipidemia, hyperlipidemia, remote history of non-Hodgkin's lymphoma. On today's evaluation of 05/25/2023, the patient is stable on 4L of oxygen by nasal cannula. Her cardiac rhythm is back to sinus. She is started on anticoagulation and she is currently on Eliquis. She is also on Lasix 20 mg p.o. daily. She is on Coreg 6.25 mg twice a day. Denies having any new complaints. The white cell count 11 with a hemoglobin 12.7 and a platelet count of 151. Sodium is at 136, BUN is at 59 with a creatinine of 0.7 and a potassium level is at 5.4. Thyroid function test shows a TSH free of 3.66 with a free T4 of 0.276. The patient remains on levothyroxine at 125 mcg p.o. daily. The dose of the thyroid has been modified and the patient has been just from 200 mcg on 225. On today's evaluation of 05/26/2023, the patient is resting comfortably in bed. No specific complaints. She is lethargic and weak. She remains on 40s of oxygen by nasal cannula with a pulse ox of 94%. Results of the biopsy are still pending for now. The patient has no significant complaints. The patient has chest wall pain on the right. This is an ongoing chronic problem dated 2 abnormalities that were described earlier. The patient is currently in normal sinus mechanism. The patient's thyroid dose has been i adjusted by the medical group. Relief Pharmacist also on the case. On today's evaluation of 05/27/2023, the patient is resting comfortably in bed. No specific complaints. Awaiting the results of the biopsy. WBC count is at 10.5 and hemoglobin 12 .7 and a platelet count of 135. The rest of the blood work shows a BUN of 62 with a creatinine of 1.09 and sodium levels at 131 with a potassium level of 5.8. The patient's is resting comfortably in bed. No other issues for now. She is complaining of pain along the right lateral chest area. She remains on anticoagulation with Eliquis 5 mg p.o. twice a day. She remains on her routine outpatient medications. Surgical consultation for dysphagia was done. Patient will be given an upper GI esophagogram and further workup regarding this dysphagia will be done depending on the results of the endobronchial ultrasound biopsies from the mediastinum. Highly suspicious for malignancy as mentioned. On today's evaluation of 05/28/2023, the patient resting comfortably in bed. No change in her condition. Awaiting final pathology from the biopsies and she should this should be available by Monday. Meanwhile, the patient has no specific complaints. She remains on 4 L with a pulse ox of 95%. Resting comfortably in bed. Pain remains unchanged. The patient is seen today May 29, 2023 in follow-up on the regular medical floor. She was initially here for an elective lung biopsy on May 24, 2023 but developed atrial fibrillation with a rapid ventricular response in the recovery room. She has been initiated on amiodarone. Anticoagulated with Eliquis. Pathology is still pending. She is maintaining O2 saturations in the 90s on 4 L/min per nasal cannula. She did undergo EGD today due to her dysphagia, unintentional weight loss and anticoagulant use. 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 White count 9.2. Hemoglobin 11.2. Platelets 131. Sodium 133. Potassium 5.6. Bicarb 24. BUN 44. Creatinine 0.8. Glucose 90. Patient was reevaluated today on 05/30/2023, pulmonary dos santos the patient is doing great, however she has GI issues being addressed by general surgery on the case. EGD on 05/28 showed AV malformation of the stomach surgery is still recommending holding anticoagulation until they do EGD dilatation which is scheduled for 05/05. Pulmonary dos santos no cough no wheezing no shortness of breath. And her atrial fibrillation seems to be relatively under control patient remains on 4 L nasal cannula with O2 sats of 96%, blood pressure 107/64, and A-fib seems to be controlled The patient is seen today May 31, 2023 in follow-up on the regular medical floor. She is awake and alert in no acute distress. She did undergo repeat EGD with rigid dilator for esophageal dilatation. Blood thinner Eliquis will be held for 48 hours. Ground diet recommended. Sodium 132. Potassium 5.5. Bicarb 22. BUN 40. Creatinine 0.78. Glucose 108. She remains on amiodarone. Continued on diuretics. Continued on Protonix. The patient is seen today June 01, 2023 in follow-up on the regular medical floor. She is resting comfortably in bed. Awake and alert in no acute distress. Maintaining O2 saturations in the 90s on 4 L/min per nasal cannula. White count 10.4. Hemoglobin 12.2. Platelets 149. Sodium 136. Potassium 5.3. Bicarb 24. BUN 36. Creatinine 0.7. Glucose 98. Initial pathology from fine- needle aspirate of the mediastinal lymph nodes revealed positive for malignant neoplasm however final results have been sent out to the [facility] and are pending. The patient is seen today June 02, 2023 in follow-up on the regular medical floor. She had gone down for CT scan of the chest and a MRI of the brain which was negative for metastasis. CT scan of the chest however revealing worsening and diffuse airspace opacities of the right lung. Moderate right pleural effusion. Right upper lung masslike area with pleural thickening. Biopsies reveal possible poorly differentiated non-small cell carcinoma likely adenocarcinoma of the lung origin versus mesothelioma versus less likely lymphoma. Results from [facility] are pending. She is maintaining good O2 saturations in the 90s on 4 L/min per nasal cannula. Afebrile. Hemodynamically stable. Glucose 119. Lactic acid 4.6. He remains on cefepime. Anticoagulated with Eliquis. The patient is seen today June 03, 2023 in follow-up on the regular medical floor. She is currently sitting up in bed. Awake and alert in no acute dis tress. Denies any worsening shortness of breath. She has a loose congested cough. No fever or chills. Maintaining O2 saturation in the low 90s on 5 L/min per nasal cannula. She is afebrile. Ultrasound of the right chest reveals a 7.6 cm loculated pocket. Blood culture revealed no growth. Biopsies reveal possible poorly differentiated non-small cell carcinoma likely adenocarcinoma of the lung origin versus mesothelioma versus less likely lymphoma. Results from [facility] are pending. White count 9.2. Hemoglobin 11.0. Platelets 127. Sodium 131. Potassium 4.6. Bicarb 20. BUN 41. Creatinine 0.86. He remains on cefepime. Continue on oral diuretics. The patient is seen today June 04, 2023 in follow-up on the regular medical floor. She is currently up in a chair at the bedside. She denies any worsening shortness of breath, cough or congestion. She is still dyspneic with exertion. She is maintaining good O2 saturations in the mid 90s on 4 L/min per nasal can nula. She is afebrile. Hemodynamically stable. Blood culture reveals no growth. White count 12.9. Hemoglobin 11.3. Platelets 161. Sodium 135. Potassium 5.0. Bicarb 20. BUN 40. Creatinine 1.0. Glucose 83. She is continued on cefepime. Remains on oral diuretics. The patient is seen today June 05, 2023 in follow-up on the regular medical floor. She is awake and alert in no acute distress. Currently resting fairly comfortably in bed. She has a productive cough. She is short of breath with conversation. Short of breath with minimal exertion. She is maintaining O2 saturations in the 90s on 5 L/min per nasal cannula. Plan is for right chest pigtail catheter insertion today. She remains on cefepime. Remains on oral diuretics. Objective - Vital Signs Vital signs: Vital Signs Temp 97.9 F 06/05/23 07:35 Pulse 63 06/05/23 12:43 Resp 20 06/05/23 12:43 BP 109/55 06/05/23 12:43 Pulse Ox 96 06/05/23 12:43 FiO2 Intake & Output 06/04/23 06/05/23 06/05/23 18:59 06:59 18:59 Weight 79.3 kg Other: Voiding Method Toilet Toilet Toilet - Exam GENERAL EXAM: Alert, frail 82-year-old female, resting in bed, on 5 L nasal cannula, in no apparent distress. HEAD: Normocephalic. EYES: Normal reaction of pupils, equal size. NOSE: Clear with pink turbinates. THROAT: No erythema or exudates. NECK: No masses, no JVD. CHEST: No chest wall deformity. LUNGS: Equal air entry with few scattered rhonchi, diminished in the right lung. CVS: S1 and S2 normal with no audible murmur, regular rhythm. ABDOMEN: No hepatosplenomegaly, normal bowel sounds, no guarding or rigidity. SPINE: No scoliosis or deformity SKIN: No rashes CENTRAL NERVOUS SYSTEM: No focal deficits, tone is normal in all 4 extremities. EXTREMITIES: There is no peripheral edema. No clubbing, no cyanosis. Peripheral pulses are intact. - Labs CBC & Chem 7: 06/04/23 05:16 06/05/23 08:55 Labs: Abnormal Lab Results - Last 24 Hours (Table) 06/02/23 06/05/23 06/05/23 Range/Units 17:58 05:57 08:55 PT (10.0-12.5) sec INR (<1.2) Sodium 131 L (137-145) mmol/L Carbon Dioxide 19 L (22-30) mmol/L BUN 50 H (7-17) mg/dL Creatinine 1.20 H (0.52-1.04) mg/dL POC Glucose (mg/dL) 154 H (70-110) mg/dL Free [place] LC, Quant 11.55 H (0.33-1.94) mg/dL Free [place] LC, Quant 5.40 H (0.57-2.63) mg/dL 06/05/23 Range/Units 09:29 PT 16.9 H (10.0-12.5) sec INR 1.7 H (<1.2) Sodium (137-145) mmol/L Carbon Dioxide (22-30) mmol/L BUN (7-17) mg/dL Creatinine (0.52-1.04) mg/dL POC Glucose (mg/dL) (70-110) mg/dL Free [place] LC, Quant (0.33-1.94) mg/dL Free Lambda LC, Quant (0.57-2.63) mg/dL Microbiology - Last 24 Hours (Table) 06/01/23 18:37 Blood Culture - Preliminary Blood Assessment and Plan Assessment: New onset atrial fibrillation with RVR, converted to normal sinus rhythm and the patient Is currently hemodynamically stable. Patient is currently on Cordarone and Coreg. Anticoagulation with Eliquis, currently on hold for procedures. Acute hypoxic respiratory failure post bronchoscopy May 24 2023 and the patient is currently on 4 L of oxygen by nasal cannula. Chest x-ray findings are stable and is consistent with a right upper lobe mass, pleural thickening and loculated right-sided pleural effusion. CT scan of the chest June 02, 2023 now revealing diffuse airspace opacities in the right lung. Moderate right pleural effusion. Ultrasound of the right chest reveals a loculated 7.2 cm pocket. Requested IR for pigtail catheter placement She did undergo EGD today May 29, 2023 due to her dysphagia, unintentional weight loss and anticoagulant use. 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 She did undergo follow-up EGD May 31, 2023 for esophageal dilatation. Right upper lobe masslike consolidation measuring 4.0 cm in addition to extensive mediastinal lymphadenopathy involving the paratracheal, right hilar and suprahilar area and the patient has significant pleural surface irregularities and multiloculated right-sided pleural effusions. Note that the pleural surface is quite thickened and is reaching approximately 1.3 cm with significant irregularities and previous thoracentesis yielded no final pathology diagnosis. She did undergo an endobronchial ultrasound and biopsy of the mediastinal lymph nodes on May 24, 2023. Biopsies reveal possible poorly differentiated non-small cell carcinoma likely adenocarcinoma of the lung origin versus mesothelioma versus less likely lymphoma. Results from [facility] are pending. Mediastinal lymphadenopathy detail discussed above, awaiting final pathology post biopsy Chest wall pain with an irregular pleural surface border with multiple nodularities and secondary pain. This is likely malignant process. Rule out mesothelioma versus adenocarcinoma versus lymphoma. Offered nonsteroidal anti- inflammatory medications for pain control. Pleural effusion with previous thoracentesis removed approximately 1.6 to 2 L of pleural fluid from the right lung. The fluid was exudative. The fluid cytology came back negative for malignancy Coronary arteriosclerosis with previous coronary artery bypass grafting Chronic systolic heart failure diagnosed by an echocardiogram that was done and the patient has ejection fraction of 25% and she has some edema in lower extremities and she is seeing cardiology and she is currently on diuretics and she is taking Lasix at a dose of 40 mg once a day Non-Hodgkin's lymphoma (clinical) She is in remission and she was diagnosed in 2013 and she has completed the chemotherapy. This involved the jaw and the head and neck Type 2 diabetes mellitus Maintained on Metformin and glyburide Rheumatoid arthritis On no treatment and she is off Ramicade Medical debility along with weight loss and diminished appetite and failure to thrive Plan: The patient was seen and evaluated Labs and medications reviewed Final pathology results from [facility] still pending IR to place a pigtail catheter to right chest today Continue to hold Eliquis Prognosis is guarded I have personally seen and examined the patient, performed the documentation and the assessment and plan as written. Number of minutes spent on the visit: 10.
[2023-06-05] MEDS: HYDROcodone/APAP 5-325MG 1 EACH TAB PO PRN (14:23)
[2023-06-05] MEDS ORDERED: IPRATROPIUM-ALBUTEROL 3 ML NEB INHALATION PRN (14:52)
--- NOTE | 2023-06-05 14:56 | P.PN ---
Subjective Progress Note Date: 06/05/23 At today's visit patient is resting comfortably in bedside chair. Reporting persisting SOB and right upper back/chest pain. Continues on IV antibiotics. Patient afebrile. SpO2 94% on 5 L. Patient reports Meacham has helped improve pain, but states medication is not lasting as long as it had initially and appears in pain at todays visit. Will increase frequency of Meacham to q4hrs prn. Plan for pig tail catheter placement today for recurrent right sided pleural effusion Objective - Vital Signs Vital signs: Vital Signs Temp 97.9 F 06/05/23 07:35 Pulse 67 06/05/23 12:04 Resp 20 06/05/23 12:04 BP 116/63 06/05/23 12:04 Pulse Ox 95 06/05/23 12:04 FiO2 Intake & Output 06/04/23 06/05/23 06/05/23 18:59 06:59 18:59 Other: Voiding Method Toilet Toilet Toilet - Constitutional General appearance: Present: average body habitus, mild distress - EENT Eyes: Present: anicteric sclerae, EOMI ENT: Present: hearing grossly normal - Respiratory Respiratory: right: diminished - Cardiovascular Details: Well-perfused - Gastrointestinal General gastrointestinal: Present: soft. Absent: tenderness - Integumentary Integumentary: Absent: cyanotic - Musculoskeletal Musculoskeletal: Present: strength equal bilaterally - Psychiatric Psychiatric: Present: A&O x's 3 - Labs CBC & Chem 7: 06/04/23 05:16 06/05/23 08:55 Labs: Abnormal Lab Results - Last 24 Hours (Table) 06/05/23 06/05/23 06/05/23 Range/Units 05:57 08:55 09:29 PT 16.9 H (10.0-12.5) sec INR 1.7 H (<1.2) Sodium 131 L (137-145) mmol/L Carbon Dioxide 19 L (22-30) mmol/L BUN 50 H (7-17) mg/dL Creatinine 1.20 H (0.52-1.04) mg/dL POC Glucose (mg/dL) 154 H (70-110) mg/dL Microbiology - Last 24 Hours (Table) 06/01/23 18:37 Blood Culture - Preliminary Blood - Imaging and Cardiology CT scan - chest: report reviewed Assessment and Plan (1) Mediastinal lymphadenopathy Current Visit: Yes Status: Acute Priority: High Code(s): R59.0 - LOCALIZED ENLARGED LYMPH NODES SNOMED Code(s): 97189152 (2) Diffuse large B cell lymphoma Current Visit: No Status: Acute Priority: Medium Code(s): C83.30 - DIFFUSE LARGE B-CELL LYMPHOMA, UNSPECIFIED SITE SNOMED Code(s): 994163917 (3) Pleural effusion, right Current Visit: Yes Status: Acute Priority: High Code(s): J90 - PLEURAL EFFUSION, NOT ELSEWHERE CLASSIFIED SNOMED Code(s): 90458630 (4) Paraproteinemia Current Visit: Yes Status: Acute Priority: Medium Code(s): D89.2 - HYPERGAMMAGLOBULINEMIA, UNSPECIFIED SNOMED Code(s): 830963622 Plan: Mediastinal lymphadenopathy, soft tissue mass: Patient states she has been experiencing dysphagia for the last couple months. Along with an approximate 30 pound weight loss with associated decreased appetite. CT chest obtained on 05/03/2023 revealed decreasing but residual moderate right pleural effusion. With worsening irregular pleural thickening/rind throughout the right hemithorax now measuring up to 1.3 cm thick versus 1.0 cm previously. Focal subpleural soft tissue anterior medial right lower lung measuring up to 3.3 cm. New diffuse subpleural nodularity along the right sided lung fissures. Pleural fluid cytoloy on 04/15/23 was negative for malignancy. -Patient was admitted for bronchoscopy/EBUS for biopsy of noted mediastinal lymph nodes and had procedure on 05/24/[address] Parsons. Per procedure note, mediastinal lymph nodes revealed a 9.5x16 mm station 10 R lymph node, a 7x10 mm station 7 lymph nodes. Biopsies were obtained. -Repeat CT chest on 06/01 revealed diffuse airspace opacities in the right lung. Moderate right pleural effusion. Right upper lung masslike area seen with pleural thickening. Mass of the right upper lung appears increased in size from prior - Pathology positive for malignant neoplasm. Differential includes poorly differentiated non-small cell carcinoma, possible lung origin, versus mesothelioma versus lymphoma. Pathology has been sent to [facility] for further review, path report pending -Brain MRI ordered and will plan for PET CT outpt to complete staging. MRI brain revealed no evidence of intracranial mass, acute/subacute infarct or abnormal enhancement -Findings and results were discussed in detail with patient and family. All questions answered. Will await final path report, pending [facility] review -Clinic f/u will be scheduled with Dr. Gandhi upon discharge, pending course of hospitalization and possible need for rehab Afib RVR/SOB: -Went into a-fib RVR post op. Started on cardizem drip, and converted -Progressing SOB x and right sided upper chest/back pain -CT chest showing diffuse airspace opacities in the right lung concerning for pneumonia. Chest ultrasound revealed large loculated right pleural effusion, pocket size 7.6 cm. -Plan for pigtail catheter placement, due to recurrent right sided pleural effusion -Continues on IV antibiotics. 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 Was in observation with Dr. Gandhi with no noted recurrence of disease, last seen in 2019
--- NOTE | 2023-06-05 15:44 | XR ---
EXAMINATION TYPE: XR chest 1V portable DATE OF EXAM: 06/05/2023 COMPARISON: 05/24/2023 INDICATION: Short of breath, cough TECHNIQUE: Single frontal view of the chest is obtained. FINDINGS: The heart size is normal. The pulmonary vasculature is normal. There is diffuse increased lung markings throughout the right lung. Correlate for pneumonia. Findings appear stable. IMPRESSION: 1. Marked increased lung markings with increased density throughout the right lung. Correlate for pne umonia. Findings are stable.
[2023-06-05 16:39] LABS: Glucose,Whole Blood 82 mg/dL (70-110)
[2023-06-05] MEDS: IPRATROPIUM-ALBUTEROL 3 ML NEB INHALATION SCH (19:49)
[2023-06-05 20:12] LABS: Glucose,Whole Blood 89 mg/dL (70-110)
[2023-06-05 21:00] LABS: Appearance,BF Bloody (Clear)
[2023-06-05 21:44] LABS: Glucose, BF Source Pleural fluid; Glucose, Body Fluid 4 mg/dL; T. Protein, Body Fluid Source Pleural fluid; Total Protein, Body Fluid 3320 mg/dL
[2023-06-05 21:58] LABS: LDH, Body Fluid Source Pleural fluid
[2023-06-06 05:36] LABS: Glucose,Whole Blood 82 mg/dL (70-110)
--- NOTE | 2023-06-06 06:04 | P.PN ---
Subjective Progress Note Date: 06/05/23 Patient is a 82-year-old female with a past medical history of coronary artery disease status post quadruple bypass in 2009 in [place], history of non- Hodgkin's lymphoma, hypertension, diabetes type 2, hyperlipidemia, history of OR, osteoarthritis, rheumatoid others, hypothyroidism. Patient was brought to the hospital for bronchoscopy with endoscopic ultrasound and DVT aspiration biopsy of the mediastinal lymph node.. Postprocedure while in the recovery room patient went into atrial fibrillation with rapid ventricular rate and heart rate went up to 130s. EKG showed atrial fibrillation with rapid ventricular rate. Cardizem drip was ordered but before starting the infusion patient converted back to sinus rhythm and heart rate came down to 70s. She was admitted to the hospital for further evaluation Patient was recently admitted to the hospital from 04/15/2023 to 04/21/2023. She is admitted due to worsening shortness of breath, requiring BiPAP. Patient was also found to have right-sided pleural effusion status post paracentesis showed reactive mesothelial cells, macrophages and mixed inflammatory cells. No c cytologically malignant cells identified. CT chest on 04/15/2023 showed large right-sided pleural effusion. Repeat CT on 05/07/2023 showed decreasing but residual moderate right pleural effusion, however there is worsening irregular dural thickening/throughout the right hemithorax now measuring up to 1.3 cm thick versus 1.0 cm previously. Focal subpleural soft tissue anteromedial right lower lung measures up to 3.3 cm and appears new. New diffuse subpleural nodularity along the right-sided lung fissures. Correlate for slight interval neoplastic disease present progression, possible lymphoma. Currently patient denies any complaints of chest pain. No worsening shortness of breath. Denies any palpitations. No nausea vomiting abdominal pain or diarrhea. Patient is on Ventimask which is being titrated down to nasal cannula oxygen. No complaints of fever or chills. No diarrhea. No cough or sputum production. Denies any worsening leg swelling recently. 05/25/2023 Patient is sitting on the side of the bed. Awake alert and oriented x 3. Complains of bloating and abdominal and not able to tolerate oral diet. No bowel movement today. Otherwise patient is having atrial fibrillation with RVR last night on and off. Was started on amiodarone drip and added anticoagulation with Eliquis as per cardiology recommendations. Patient was also found to have elevated free T4 level and low TSH level. Levothyroxine dose reduced to 125 mcg daily from 200 mcg which she takes at home. Otherwise patient has been afebrile. Requiring oxygen via nasal cannula. No complaints of chest pain. Does have exertional shortness of breath. Laboratory data showed Pulmonary and cardiology is on board. WBC 11.0 hemoglobin 12.7 platelets 151 Sodium 136 potassium 5.4 chloride 107 bicarb is 19 BUN 59 and creatinine 0.78 and blood sugar 165 TSH 0.276 and free T4 3.66. 05/26/2023 Patient is currently sitting on the side of the bed. Awake alert and oriented x 3. Feels weak and lethargic. Currently on oxygen at 4 L via nasal cannula. Otherwise heart rate is better controlled and amiodarone changed to p.o. Patient did have a swallow evaluation. Recommends EGD as per speech pathology. Otherwise patient has been afebrile. Blood pressure is marginal. Laboratory data reviewed. Cardiology and pulmonary is on board. 05/26. Patient seen and examined. Complaining of back pain. Currently on 3 L of oxygen. Gets short of breath on minimal exertion. Complaining of dysphagia 05/27. Patient seen and examined. Continues to be on 4 L of oxygen. 05/28. Patient seen and examined. General surgery are planning EGD today. Breathing has improved. Denies any chest pain. Vital signs stable lab work done showed WBC 9.29, hemoglobin 9.2, platelet count 131, sodium 133, potassium 5.6 05/29. Patient seen and examined. 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 Patient seen examined. Patient scheduled for repeat EGD today. Patient potassium level was elevated at 5.5, ordered Lokelma. Still complaining of shortness of breath. 05/31. Patient seen and examined.Blood work done this morning showed WBC 10.4, hemoglobin is 12.2, platelet count is 149,. Sodium 137 potassium 5.3, BUN 35.8, creatinine 0.7. Patient complaining of generalized weakness. Appetite has improved. PT and OT recommend rehab, 06/01. Patient seen and examined. Patient was seen by hematology oncology, they ordered MRI brain and outpatient PET scan. Chest x-ray done showed worsening opacity on the right with near complete whiteout appearance of the right hemothorax. CT chest done showed diffuse airspace opacity in the right lung concerning for pneumonia, moderate right pleural effusion, right upper lung masslike area seen in the pleural thickening suggested the mass of the right upper lung appears increased in size from prior. MRI brain negative for any mass or acute stroke. 06/02. Patient seen and examined.. Ultrasound right chest done showed loculated pocket on the right side 7.6 cm in size. Pulmonology recommended IR cons ultation for pigtail catheter placement 06/03. Patient seen and examined. Blood work done this morning showed WBC 12.92, hemoglobin 0.3, platelet count 161, pulmonology recommend pigtail catheter placement. Patient was sitting upright in the chair, stated breathing remains the same as yesterday 06/05/2023 Patient is seen in follow-up this morning status post pigtail catheter placeme nt. Patient was n.p.o. scheduled to be evaluated by interventional radiology as patient persists with pleural effusions. Pulmonary following as well and patient is maintained on breathing treatments. Patient sounds wet with bronchial congestion noted on exam and will initiate DuoNeb treatments and obtain a chest x-ray. Patient is afebrile and will follow-up with repeat labs. Recommend sitting up in the chair more often and out of the bed. Will have PT/OT therapy evaluate the patient. CT surgery is consulted and pending. Oncology following and pathology is pending as well REVIEW OF SYSTEMS: CONSTITUTIONAL: No fever, no malaise,. CARDIOVASCULAR: No chest pain, no palpitations, no syncope. PULMONARY: As mentioned above GASTROINTESTINAL: No diarrhea, no nausea, no vomiting, no abdominal pain. NEUROLOGICAL: No headaches, no weakness, reports generalized weakness PHYSICAL EXAMINATION: GENERAL: The patient is an 82-year-old female who is alert and oriented x3, not in any acute distress. Ill appearing, elderly appearing HEENT: Pupils are round and equally reacting to light. EOMI. No scleral icterus. No conjunctival pallor. Normocephalic, atraumatic. No pharyngeal erythema. No thyromegaly. CARDIOVASCULAR: S1 and S2 present. No murmurs, rubs, or gallops. PULMONARY: Coarse breath sound bilaterally, bilateral crackles audible, significant bronchial congestion noted. ABDOMEN: Soft, nontender, nondistended, normoactive bowel sounds. No palpable organomegaly. MUSCULOSKELETAL: No joint swelling or deformity. EXTREMITIES: No cyanosis, clubbing, or pedal edema. NEUROLOGICAL: Gross neurological examination did not reveal any focal deficits. Diffusely weak SKIN: No rashes. Assessment: New onset atrial fibrillation with rapid ventricular rate, currently rate controlled Diffuse subpleural nodularity along the right sided lung fissures correlate for interval neoplastic disease progression. Mediastinal lymphadenopathy. Patient is s/p bronchoscopy and endobronchial ultrasound with needle biopsy on 05/24/2023. Acute hypoxic respiratory failure status post bronchoscopy. Right upper lobe masslike consolidation measuring 4.0 cm in addition to extensive mediastinal lymphadenopathy involving the paratracheal, right hilar and suprahilar area Recent admission with acute hypoxic respiratory failure status post right thoracentesis. fluid cytology negative for malignancy. Chronic CHF with systolic dysfunction ejection fraction 25 to 30%, mid to distal inferolateral and lateral wall hypokinesis and inferior apical wall hypokinesis. Ischemic cardiomyopathy Hyperkalemia, improved. 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 Hypothyroidism. Patient has elevated free T4 level. Levothyroxine dose reduced to 125 mcg daily. History of non-Hodgkin's lymphoma status postchemotherapy. Currently in remission. GI prophylaxis DVT prophylaxis Full code Plan: Multiple medical consultations following including pulmonary and has consulted CT surgery along with interventional radiology for pigtail catheter placement today. Patient has a loculated pleural effusion recommending tPA administration Patient was started on antibiotics and will continue while awaiting cultures Pathology pending Oncology following awaiting on pathology report Continue with supplemental oxygen and wean off O2 as tolerated. Patient is significantly congested and wet on exam we will obtain a chest x-ray Encouraged increase activity as tolerated will have PT/OT therapy evaluate Encouraged oral intake Continue monitoring Accu-Cheks ACHS and will continue current regimen and adjust insulins accordingly Due to multiple complex medical issues, prognosis is guarded The impression and plan of care has been dictated by Kami Montoya, Nurse Practitioner as directed. Dr. Domo MD I have performed a history and examination and MDM of this patient, discussed the same with the dictator, and agree with the dictator's assessment and plan as written ,documented as a scribe. Based on total visit time, I have performed more than 50% of the visit. Objective - Vital Signs Vital signs: Vital Signs Temp 97.9 F 06/05/23 07:35 Pulse 63 06/05/23 12:43 Resp 20 06/05/23 12:43 BP 109/55 06/05/23 12:43 Pulse Ox 96 06/05/23 12:43 FiO2 Intake & Output 06/04/23 06/05/23 06/05/23 18:59 06:59 18:59 Weight 79.3 kg Other: Voiding Method Toilet Toilet Toilet - Labs CBC & Chem 7: 06/04/23 05:16 06/05/23 08:55 Labs: Abnormal Lab Results - Last 24 Hours (Table) 06/02/23 06/05/23 06/05/23 Range/Units 17:58 05:57 08:55 PT (10.0-12.5) sec INR (<1.2) Sodium 131 L (137-145) mmol/L Carbon Dioxide 19 L (22-30) mmol/L BUN 50 H (7-17) mg/dL Creatinine 1.20 H (0.52-1.04) mg/dL POC Glucose (mg/dL) 154 H (70-110) mg/dL Free [place] LC, Quant 11.55 H (0.33-1.94) mg/dL Free [place] LC, Quant 5.40 H (0.57-2.63) mg/dL 06/05/23 Range/Units 09:29 PT 16.9 H (10.0-12.5) sec INR 1.7 H (<1.2) Sodium (137-145) mmol/L Carbon Dioxide (22-30) mmol/L BUN (7-17) mg/dL Creatinine (0.52-1.04) mg/dL POC Glucose (mg/dL) (70-110) mg/dL Free [place] LC, Quant (0.33-1.94) mg/dL Free [place]ambda LC, Quant (0.57-2.63) mg/dL Microbiology - Last 24 Hours (Table) 06/01/23 18:37 Blood Culture - Preliminary Blood
[2023-06-06 07:43] LABS: ALT 14 U/L (4-34); AST 27 U/L (14-36); African American GFR (CKD) 52 (>60 ml/min/1.73 sqM); Albumin/Globulin Ratio 0.8; Alkaline Phosphatase 41 U/L (38-126); Anion Gap 10 mmol/L; Blood Urea Nitrogen 52 mg/dL (7-17); Calcium 8.7 mg/dL (8.4-10.2); Carbon Dioxide 13 mmol/L (22-30); Chloride 111 mmol/L (98-107); Globulin 2.5 g/dL; Glucose 54 mg/dL (74-99); Magnesium 1.8 mg/dL (1.6-2.3); Non-African American GFR(CKD) 45 (>60 ml/min/1.73 sqM); Sodium 134 mmol/L (137-145); Total Bilirubin 0.6 mg/dL (0.2-1.3); Total Protein 4.5 g/dL (6.3-8.2)
[2023-06-06 08:17] LABS: Potassium 5.3 mmol/L (3.5-5.1)
[2023-06-06] MEDS: DORNASE ALFA 5 MG in SODIUM CHLORIDE 0.9% 50 ML IRRIGATION ONE (08:56)
[2023-06-06] MEDS: ALTEPLASE 10 MG in SODIUM CHLORIDE 0.9% 50 ML IRRIGATION ONE (08:56)
--- NOTE | 2023-06-06 11:07 | P.GSCN ---
History of Present Illness Consult date: 06/06/23 Reason for Consult: Lytic instillation through pigtail catheter Requesting physician: Roberta Maldonado History of present illness: This is an 82-year-old female who has been hospitalized for the last couple weeks. She has a previous medical history of coronary artery disease status post four-vessel CABG in 2009, chronic heart failure with reduced ejection fraction, hypertension, hyperlipidemia, diabetes, osteoarthritis, rheumatoid arthritis, hypothyroid. She was admitted in April 2023 with acute hypoxic respiratory failure, right-sided parapneumonic effusion. She had a thoracentesis completed at that time with removal of 1.6 L of fluid, cytology was negative for malignancy. She also had an echocardiogram demonstrating impaired LV function with EF 25 to 30%. She was discharged to home but continued to not do well. She has been very weak and debilitated. This patient had outpatient follow-up with CAT scan of the chest showing a loculated moderate size right-sided pleural effusion with pleural wall thickening and rind throughout the right hemithorax along with right upper lobe mass with extension into the mediastinum and lymphadenopathy in the right hilum and subcarinal area. Family wanted to establish a diagnosis so the patient underwent endobronchial ultrasound with a transbronchial needle aspiration of lymph nodes on May 24, [address] Parsons. Unfortunately in the recovery room the patient went into atrial fibrillation with rapid ventricular response. The patient was admitted for evaluation and treatment and has been hospitalized since. She has continued to have shortness of breath and reaccumulation of fluid on the right side. Yesterday she underwent pigtail catheter insertion by interventional radiology, cardiothoracic surgery was consulted for lytic instillation to break up her loculated right-sided effusion. Review of Systems Review of systems was completed and was negative except as noted - Cardiovascular Reports dyspnea on exertion, Reports leg edema - Respiratory Reports dyspnea Past Medical History Past Medical History: Coronary Artery Disease (CAD), Cancer, Chest Pain / Angina, Heart Failure, Diabetes Mellitus, Hyperlipidemia, Hypertension, Myocardial Infarction ([place]), Osteoarthritis (OA), Respiratory Disorder, Rheumatoid Arthritis (RA), Thyroid Disorder Additional Past Medical History / Comment(s): 04/2023 admitted to [facility] with acute hypoxic respiratory failure/R parapneumonic effusio/had thoracentesis/chf/N STEMI. Other hx: Abnormal cat scan of chest, SOB at all times and weak, appetite very poor so taken off diabetic medications, hypothyroidism, neuropathy, 2013 lymphoma both sides of jaw/surgery one side/chemotherapy Last Myocardial Infarction Date:: 04/2023 History of Any Multi-Drug Resistant Organisms: None Reported Past Surgical History: Coronary Bypass/CABG, Heart Catheterization, Hysterectomy, Orthopedic Surgery Additional Past Surgical History / Comment(s): Partial thyroidectomy, 2009 CABG 4 vessel, R side jaw/neck surgery, bilateral carpal tunnel release Past Anesthesia/Blood Transfusion Reactions: No Reported Reaction Smoking Status: Former smoker - Past Family History Father History Unknown: Yes Family Medical History: Cancer Additional Family Medical History / Comment(s): at 59 from cancer. Mother History Unknown: Yes Family Medical History: Myocardial Infarction ([place]) Additional Family Medical History / Comment(s): of [place] at 55yrs. Medications and Allergies Home Medications Medication Instructions Recorded Confirmed Type Aspirin EC [Ecotrin Low Dose] 81 mg PO QAM 04/14/23 05/24/23 History Cholecalciferol [Vitamin D3 (25 25 mcg PO QAM 04/14/23 05/24/23 History Mcg = 1000 Iu)] Cyanocobalamin (Vitamin B-12) 1,000 mcg PO QAM 04/14/23 05/24/23 History [Vitamin B-12] Ferrous Sulfate [Iron (65 MG 325 mg PO QAM 04/14/23 05/24/23 History Elemental)] Levothyroxine Sodium [Synthroid] 200 mcg PO QAM 04/14/23 05/24/23 History Omeprazole 40 mg PO QAM 04/14/23 05/24/23 History Simvastatin [Zocor] 20 mg PO HS 04/14/23 05/24/23 History carvediloL [Coreg] 6.25 mg PO BID 04/14/23 05/24/23 History lisinopriL 40 mg PO QAM 04/14/23 05/24/23 History Furosemide [Lasix] 20 mg PO QAM 05/23/23 05/24/23 History Ibuprofen 600 mg PO Q8H PRN 05/23/23 05/24/23 History Isosorbide Mononitrate ER [Imdur] 30 mg PO QAM 05/23/23 05/24/23 History Allergies Allergy/AdvReac Type Severity Reaction Status Date / Time atorvastatin [From Lipitor] Allergy Swelling Verified 05/24/23 13:19 bisacodyl Allergy Rash/Hives Verified 05/24/23 13:19 [From Dulcolax (bisacodyl)] carisoprodol [From Soma] Allergy Unknown Verified 05/24/23 13:19 morphine Allergy Vomiting Verified 05/24/23 13:19 orphenadrine Allergy Unknown Verified 05/24/23 13:19 pseudoephedrine Allergy Rash/Hives Verified 05/24/23 13:19 [From Sudafed] tramadol [From Ultram] Allergy Unknown Verified 05/24/23 13:19 Surgical - Exam Vital Signs Temp Pulse Resp BP Pulse Ox 97.1 F L 77 20 129/60 90 L 05/24/23 13:24 05/24/23 13:24 05/24/23 13:24 05/24/23 13:24 05/24/23 13:24 CONSTITUTIONAL: Awake and alert, appears comfortable although somewhat dyspneic with conversation, cooperative, no pain EYES: Pupils equal, round, reactive to light, normal ocular movement ENT: Moist mucous membranes without oral lesions present NECK: No masses, no bruits, trachea midline RESPIRATORY: Lungs sounds diminished bilaterally, right greater than left. Respirations even, nonlabored. Currently on 5 L nasal cannula with oxygen saturation 95%. Strong cough. Right-sided pigtail catheter present and connected to atrium, 900 mL drainage present in the atrium this morning, no airleak present CARDIOVASCULAR: S1, S2 present. Regular rate and rhythm, sinus rhythm on telemetry. Palpable peripheral pulses bilaterally. Generalized edema present. No calf pain or tenderness noted GASTROINTESTINAL: Abdomen soft, nontender, nondistended without masses or organomegaly noted. There is no rebound or guarding present. Active bowel sounds present 4 quadrants. GENITOURINARY: Deferred INTEGUMENTARY: Skin is warm and dry NEUROLOGIC: Cranial nerves II through XII intact MUSKULOSKELETAL: Able to move all extremities PSYCHIATRIC: Alert and oriented to person place and time, appropriate affect, intact judgment and insight Results - Labs 06/07/23 05:39 06/07/23 05:39 Abnormal Lab Results - Last 24 Hours (Table) 06/02/23 06/05/23 06/06/23 Range/Units 17:58 13:18 05:40 Sodium 134 L (137-145) mmol/L Potassium 5.3 H (3.5-5.1) mmol/L Chloride 111 H (98-107) mmol/L Carbon Dioxide 13 L (22-30) mmol/L BUN 52 H (7-17) mg/dL Creatinine 1.14 H (0.52-1.04) mg/dL Glucose 54 L (74-99) mg/dL Total Protein 4.5 L (6.3-8.2) g/dL Albumin 2.0 L (3.5-5.0) g/dL Fluid Appearance Bloody A (Clear) Free [place] LC, Quant 11.55 H (0.33-1.94) mg/dL Free Lambda LC, Quant 5.40 H (0.57-2.63) mg/dL Diabetes panel 06/06/23 Range/Units 05:40 Sodium 134 L (137-145) mmol/L Potassium 5.3 H (3.5-5.1) mmol/L Chloride 111 H (98-107) mmol/L Carbon Dioxide 13 L (22-30) mmol/L BUN 52 H (7-17) mg/dL Creatinine 1.14 H (0.52-1.04) mg/dL Glucose 54 L (74-99) mg/dL Calcium 8.7 (8.4-10.2) mg/dL AST 27 (14-36) U/L ALT 14 (4-34) U/L Alkaline Phosphatase 41 (38-126) U/L Total Protein 4.5 L (6.3-8.2) g/dL Albumin 2.0 L (3.5-5.0) g/dL Calcium panel 06/06/23 Range/Units 05:40 Calcium 8.7 (8.4-10.2) mg/dL Albumin 2.0 L (3.5-5.0) g/dL Pituitary panel 06/06/23 Range/Units 05:40 Sodium 134 L (137-145) mmol/L Potassium 5.3 H (3.5-5.1) mmol/L Chloride 111 H (98-107) mmol/L Carbon Dioxide 13 L (22-30) mmol/L BUN 52 H (7-17) mg/dL Creatinine 1.14 H (0.52-1.04) mg/dL Glucose 54 L (74-99) mg/dL Calcium 8.7 (8.4-10.2) mg/dL Adrenal panel 06/06/23 Range/Units 05:40 Sodium 134 L (137-145) mmol/L Potassium 5.3 H (3.5-5.1) mmol/L Chloride 111 H (98-107) mmol/L Carbon Dioxide 13 L (22-30) mmol/L BUN 52 H (7-17) mg/dL Creatinine 1.14 H (0.52-1.04) mg/dL Glucose 54 L (74-99) mg/dL Calcium 8.7 (8.4-10.2) mg/dL Total Bilirubin 0.6 (0.2-1.3) mg/dL AST 27 (14-36) U/L ALT 14 (4-34) U/L Alkaline Phosphatase 41 (38-126) U/L Total Protein 4.5 L (6.3-8.2) g/dL Albumin 2.0 L (3.5-5.0) g/dL - Imaging Chest x-ray: report reviewed, image reviewed CT scan - chest: report reviewed, image reviewed Assessment and Plan Assessment: Right-sided recurrent loculated pleural effusion, status postplacement of p igtail catheter Acute hypoxic respiratory failure Fine-needle aspiration positive for malignant neoplasm, final pathology pending report from [facility] Shortness of breath secondary to above New onset atrial fibrillation, currently sinus Coronary artery disease status post four-vessel CABG in 2009 Chronic heart failure with reduced ejection fraction, 25 to 30% Hypertension Hyperlipidemia Diabetes Osteoarthritis Rheumatoid arthritis Hypothyroid Plan: The patient was seen and examined sitting up in recliner on the fourth floor surgical unit. Chart/diagnostics reviewed, CT and chest x-ray films were reviewed with Dr. Hernadez. First dose of alteplase/dornase was instilled to her right sided pigtail catheter this morning, will allow 1 to 2 hours dwell time before returning to continuous wall suction. Will monitor output. Will order incentive spirometry, encourage use. Wean O2 as tolerated. Increase activity as tolerated. Medical management of other comorbidities per internal medicine, pulmonology. More recommendations to follow. Thank you for this consult. I have personally seen and examined the patient, performed the documentation and the assessment and plan as written. Number of minutes spent on the visit: 30. KACY Martino Attending Addendum: Pt seen and evaluated with [employer] above. Agree with her assessment and plan. I spent 35 minutes reviewing the data and discussing plan of care with the team. Time with Patient: Greater than 30
[2023-06-06 11:36] LABS: Glucose,Whole Blood 86 mg/dL (70-110)
[2023-06-06 12:51] LABS: Basophils # (A) 0.1 k/uL (0-0.2); Basophils % (A) 0 %; Eosinophils # (A) 0.4 k/uL (0-0.7); Eosinophils % (A) 3 %; HCT 38.5 % (34.0-46.0); HGB 12.2 gm/dL (11.4-16.0); Hypochromasia Slight; Lymphocytes # (A) 2.8 k/uL (1.0-4.8); Lymphocytes % (A) 18 %; MCH 30.6 pg (25.0-35.0); MCHC 31.7 g/dL (31.0-37.0); MCV 96.7 fL (80.0-100.0); Mean Platelet Volume 10.4; Monocytes % (A) 6 %; Neutrophils # (A) 11.4 k/uL (1.3-7.7); Neutrophils % (A) 72 %; RBC 3.98 m/uL (3.80-5.40); RDW 15.5 % (11.5-15.5); WBC 15.8 k/uL (3.8-10.6)
[2023-06-06 12:58] LABS: Platelet Count 197 k/uL (150-450)
--- NOTE | 2023-06-06 13:32 | P.PN ---
Subjective patient is seen for follow-up for hyperkalemia and hypercalcemia. Maintained on oral Lasix voiding on her own. serum creatinine at 1.1 today however CO2 has dropped to 13. right chest tube placed on 06/05/2023 Objective - Vital Signs Vital signs: Vital Signs Temp 98.5 F 06/06/23 07:09 Pulse 66 06/06/23 10:07 Resp 16 06/06/23 07:09 BP 97/46 06/06/23 10:07 Pulse Ox 95 06/06/23 10:07 FiO2 Intake & Output 06/05/23 06/06/23 06/06/23 18:59 06:59 18:59 Intake Total 120 Output Total 850 Balance 120 -850 Weight 79.3 kg 87.5 kg Intake: Oral 120 Output: Chest Tube Drainage 850 Chest Tube Right 850 Posterior Chest Other: Voiding Method Toilet Toilet # Voids 2 - Exam patient is awake, comfortable, no acute distress, lethargic Examination of the heart S1 and S2 Examination of the lungs bilateral breath sounds are heard Abdomen is soft nontender Examination of lower extremities shows 1+ edema bilaterally [employer] exam grossly intact - Labs CBC & Chem 7: 06/06/23 11:38 06/06/23 05:40 Labs: Abnormal Lab Results - Last 24 Hours (Table) 06/02/23 06/05/23 06/06/23 Range/Units 17:58 13:18 05:40 WBC (3.8-10.6) k/uL Neutrophils # (1.3-7.7) k/uL Sodium 134 L (137-145) mmol/L Potassium 5.3 H (3.5-5.1) mmol/L Chloride 111 H (98-107) mmol/L Carbon Dioxide 13 L (22-30) mmol/L BUN 52 H (7-17) mg/dL Creatinine 1.14 H (0.52-1.04) mg/dL Glucose 54 L (74-99) mg/dL Total Protein 4.5 L (6.3-8.2) g/dL Albumin 2.0 L (3.5-5.0) g/dL Fluid Appearance Bloody A (Clear) Free [place] LC, Quant 11.55 H (0.33-1.94) mg/dL Free [place] LC, Quant 5.40 H (0.57-2.63) mg/dL 06/06/23 Range/Units 11:38 WBC 15.8 H (3.8-10.6) k/uL Neutrophils # 11.4 H (1.3-7.7) k/uL Sodium (137-145) mmol/L Potassium (3.5-5.1) mmol/L Chloride (98-107) mmol/L Carbon Dioxide (22-30) mmol/L BUN (7-17) mg/dL Creatinine (0.52-1.04) mg/dL Glucose (74-99) mg/dL Total Protein (6.3-8.2) g/dL Albumin (3.5-5.0) g/dL Fluid Appearance (Clear) Free [place] LC, Quant (0.33-1.94) mg/dL Free Lambda LC, Quant (0.57-2.63) mg/dL Assessment and Plan Assessment: 1. Hyperkalemia. Takes lisinopril outpatient but currently held. Blood sugars not elevated. No significant acidosis. No urinary retention. Stable. Maintained on loop diuretics 2. Hypercalcemia secondary to vitamin D supplementation and concern for underlying malignancy. Vitamin D level 33.1. SCAR level low. PTH low at 5.1. TSH normal. 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 Calcium level better. 3. Dysphagia status post EGD with dilation. Surgery following. 4. A-fib with RVR. Stable. 5. Right upper lobe masslike consolidation with mediastinal lymphadenopathy concerning for malignancy. 6. History of lymphoma. 7. Diabetes mellitus. 8. Metabolic acidosis, non-gap Plan: add IV bicarb at 50 mL an hour add oral sodium bicarb as well continue current dose of Lasix Repeat labs in a.m.
--- NOTE | 2023-06-06 14:47 | P.PN ---
Subjective Progress Note Date: 06/06/23 This is a 82-year-old female patient was suspected to have malignancy. The patient has been having progressive worsening in her health status in general. She has not been eating. She has been extremely weak and debilitated. She was in the hospital approximately a month ago and at that time she came in with acute hypoxic respiratory failure and the patient was initially supported with BiPAP and subsequently was found to have a right-sided pleural effusion. I performed a bedside thoracentesis on this patient and a total of 1.6 L of fluid was aspirated and fluid cytology was negative for malignancy. Echocardiogram showed impaired LV function with an EF of around 25 to 30% and there was some mid to distal anterolateral wall hypokinesis and apical hypokinesis. The patient also had mild to moderate aortic valve calcification without any stenosis. She is subsequent CAT scan of the chest showed a loculated moderate- sized right-sided pleural effusion and irregular pleural wall thickening and the rind throughout the right hemithorax up to 1.3 cm in size and there was also what seems to be right upper lobe mass with extension into the mediastinum in addition to lymphadenopathy within the right hilum measuring around 2.3 cm in size and right suprahilar measuring 1.9 cm in size and in the subcarinal area in addition. There was a mass in the right upper lobe that is pleural-based opacity measuring 4.0 cm in size. Of significance was extensive pleural surface irregularity and nodular structures and this was obviously a manifestation of a neoplastic process and the concern was adenocarcinoma versus mesothelioma versus lymphoma as the patient is known to have a previous history of lymphoma. This was explained to the patient and the family members at length. Family was adamant in establishing a diagnosis. Based on that, the patient was brought in today patient underwent an endobronchial ultrasound under general anesthesia. I did not biopsy the right upper lobe mass. I was going more conservative because of her medical problems and I ended up doing a transbronchial needle aspirate of station 10 R and station 7 lymph nodes. Note that following her procedure, the patient was extubated and she got transferred to recovery where she went into A- fib RVR. I ordered Cardizem drip and this was not started and by the time she was about to start the Cardizem she converted to normal sinus rhythm. I discussed the findings with the family. The family told me that the patient's condition was progressively getting worse and she was not eating and they were very much concerned about her health in general and they wanted to keep her in the hospital. As such, the patient will be hospitalized to telemetry unit. She is known to have a left atrial ejection fraction of 25%. She is also known to have history of rheumatoid arthritis and she is currently off Remicade. She has diabetes mellitus type 2, coronary artery disease, hyperlipidemia, hyperlipidemia, remote history of non-Hodgkin's lymphoma. On today's evaluation of 05/25/2023, the patient is stable on 4L of oxygen by nasal cannula. Her cardiac rhythm is back to sinus. She is started on anticoagulation and she is currently on Eliquis. She is also on Lasix 20 mg p.o. daily. She is on Coreg 6.25 mg twice a day. Denies having any new complaints. The white cell count 11 with a hemoglobin 12.7 and a platelet count of 151. Sodium is at 136, BUN is at 59 with a creatinine of 0.7 and a potassium level is at 5.4. Thyroid function test shows a TSH free of 3.66 with a free T4 of 0.276. The patient remains on levothyroxine at 125 mcg p.o. daily. The dose of the thyroid has been modified and the patient has been just from 200 mcg on 225. On today's evaluation of 05/26/2023, the patient is resting comfortably in bed. No specific complaints. She is lethargic and weak. She remains on 40s of oxygen by nasal cannula with a pulse ox of 94%. Results of the biopsy are still pending for now. The patient has no significant complaints. The patient has chest wall pain on the right. This is an ongoing chronic problem dated 2 abnormalities that were described earlier. The patient is currently in normal sinus mechanism. The patient's thyroid dose has been i adjusted by the medical group. Cloth Handler also on the case. On today's evaluation of 05/27/2023, the patient is resting comfortably in bed. No specific complaints. Awaiting the results of the biopsy. WBC count is at 10.5 and hemoglobin 12 .7 and a platelet count of 135. The rest of the blood work shows a BUN of 62 with a creatinine of 1.09 and sodium levels at 131 with a potassium level of 5.8. The patient's is resting comfortably in bed. No other issues for now. She is complaining of pain along the right lateral chest area. She remains on anticoagulation with Eliquis 5 mg p.o. twice a day. She remains on her routine outpatient medications. Surgical consultation for dysphagia was done. Patient will be given an upper GI esophagogram and further workup regarding this dysphagia will be done depending on the results of the endobronchial ultrasound biopsies from the mediastinum. Highly suspicious for malignancy as mentioned. On today's evaluation of 05/28/2023, the patient resting comfortably in bed. No change in her condition. Awaiting final pathology from the biopsies and she should this should be available by Monday. Meanwhile, the patient has no specific complaints. She remains on 4 L with a pulse ox of 95%. Resting comfortably in bed. Pain remains unchanged. The patient is seen today May 29, 2023 in follow-up on the regular medical floor. She was initially here for an elective lung biopsy on May 24, 2023 but developed atrial fibrillation with a rapid ventricular response in the recovery room. She has been initiated on amiodarone. Anticoagulated with Eliquis. Pathology is still pending. She is maintaining O2 saturations in the 90s on 4 L/min per nasal cannula. She did undergo EGD today due to her dysphagia, unintentional weight loss and anticoagulant use. 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 White count 9.2. Hemoglobin 11.2. Platelets 131. Sodium 133. Potassium 5.6. Bicarb 24. BUN 44. Creatinine 0.8. Glucose 90. Patient was reevaluated today on 05/30/2023, pulmonary dos santos the patient is doing great, however she has GI issues being addressed by general surgery on the case. EGD on 05/28 showed AV malformation of the stomach surgery is still recommending holding anticoagulation until they do EGD dilatation which is scheduled for 05/05. Pulmonary dos santos no cough no wheezing no shortness of breath. And her atrial fibrillation seems to be relatively under control patient remains on 4 L nasal cannula with O2 sats of 96%, blood pressure 107/64, and A-fib seems to be controlled The patient is seen today May 31, 2023 in follow-up on the regular medical floor. She is awake and alert in no acute distress. She did undergo repeat EGD with rigid dilator for esophageal dilatation. Blood thinner Eliquis will be held for 48 hours. Ground diet recommended. Sodium 132. Potassium 5.5. Bicarb 22. BUN 40. Creatinine 0.78. Glucose 108. She remains on amiodarone. Continued on diuretics. Continued on Protonix. The patient is seen today June 01, 2023 in follow-up on the regular medical floor. She is resting comfortably in bed. Awake and alert in no acute distress. Maintaining O2 saturations in the 90s on 4 L/min per nasal cannula. White count 10.4. Hemoglobin 12.2. Platelets 149. Sodium 136. Potassium 5.3. Bicarb 24. BUN 36. Creatinine 0.7. Glucose 98. Initial pathology from fine- needle aspirate of the mediastinal lymph nodes revealed positive for malignant neoplasm however final results have been sent out to the [facility] and are pending. The patient is seen today June 02, 2023 in follow-up on the regular medical floor. She had gone down for CT scan of the chest and a MRI of the brain which was negative for metastasis. CT scan of the chest however revealing worsening and diffuse airspace opacities of the right lung. Moderate right pleural effusion. Right upper lung masslike area with pleural thickening. Biopsies reveal possible poorly differentiated non-small cell carcinoma likely adenocarcinoma of the lung origin versus mesothelioma versus less likely lymphoma. Results from [facility] are pending. She is maintaining good O2 saturations in the 90s on 4 L/min per nasal cannula. Afebrile. Hemodynamically stable. Glucose 119. Lactic acid 4.6. He remains on cefepime. Anticoagulated with Eliquis. The patient is seen today June 03, 2023 in follow-up on the regular medical floor. She is currently sitting up in bed. Awake and alert in no acute dis tress. Denies any worsening shortness of breath. She has a loose congested cough. No fever or chills. Maintaining O2 saturation in the low 90s on 5 L/min per nasal cannula. She is afebrile. Ultrasound of the right chest reveals a 7.6 cm loculated pocket. Blood culture revealed no growth. Biopsies reveal possible poorly differentiated non-small cell carcinoma likely adenocarcinoma of the lung origin versus mesothelioma versus less likely lymphoma. Results from [facility] are pending. White count 9.2. Hemoglobin 11.0. Platelets 127. Sodium 131. Potassium 4.6. Bicarb 20. BUN 41. Creatinine 0.86. He remains on cefepime. Continue on oral diuretics. The patient is seen today June 04, 2023 in follow-up on the regular medical floor. She is currently up in a chair at the bedside. She denies any worsening shortness of breath, cough or congestion. She is still dyspneic with exertion. She is maintaining good O2 saturations in the mid 90s on 4 L/min per nasal can nula. She is afebrile. Hemodynamically stable. Blood culture reveals no growth. White count 12.9. Hemoglobin 11.3. Platelets 161. Sodium 135. Potassium 5.0. Bicarb 20. BUN 40. Creatinine 1.0. Glucose 83. She is continued on cefepime. Remains on oral diuretics. The patient is seen today June 05, 2023 in follow-up on the regular medical floor. She is awake and alert in no acute distress. Currently resting fairly comfortably in bed. She has a productive cough. She is short of breath with conversation. Short of breath with minimal exertion. She is maintaining O2 saturations in the 90s on 5 L/min per nasal cannula. Plan is for right chest pigtail catheter insertion today. She remains on cefepime. Remains on oral diuretics. The patient is seen today June 06, 2023 in follow-up on the regular medical floor. She is awake and alert. She is sitting up in a chair at the bedside. She denies any worsening shortness of breath, cough or congestion. Maintaining good O2 saturation in the mid 90s on room air. She is afebrile. Hemodynamically stable. Chest x-ray reveals increased density throughout the right lung. Pigtail catheter was inserted yesterday. CT services consulted for possible alteplase/dornase infusions. Blood cultures revealed no growth. Pleural fluid cultures are pending. Fluid analysis is exudate with a total protein of 3.3 and an LDH of 1060. Cytology pending. White count 15.8. Hemoglobin 12.2. Platelets 197. Sodium 134. Potassium 5.3. Bicarb 13. BUN 52. Creatinine 1.14. Glucose 86. He is continued on DuoNeb inhalations. Oral diuretics. She has been initiated on sodium bicarbonate tablets and D5W with 3 A of bicarb at 50 MLS per hour. Objective - Vital Signs Vital signs: Vital Signs Temp 98.6 F 06/06/23 14:00 Pulse 75 06/06/23 14:00 Resp 19 06/06/23 14:00 BP 135/71 06/06/23 14:00 Pulse Ox 94 L 06/06/23 14:00 FiO2 Intake & Output 06/05/23 06/06/23 06/06/23 18:59 06:59 18:59 Intake Total 120 Output Total 850 Balance 120 -850 Weight 79.3 kg 87.5 kg Intake: Oral 120 Output: Chest Tube Drainage 850 Chest Tube Right 850 Posterior Chest Other: Voiding Method Toilet Toilet # Voids 2 - Exam GENERAL EXAM: Alert, pleasant 82-year-old female, sitting up in a chair, on 5 L nasal cannula, in no apparent distress. HEAD: Normocephalic. EYES: Normal reaction of pupils, equal size. NOSE: Clear with pink turbinates. THROAT: No erythema or exudates. NECK: No masses, no JVD. CHEST: No chest wall deformity. LUNGS: Equal air entry with few scattered rhonchi, diminished in the right lung. Right-sided pigtail catheter in place CVS: S1 and S2 normal with no audible murmur, regular rhythm. ABDOMEN: No hepatosplenomegaly, normal bowel sounds, no guarding or rigidity. SPINE: No scoliosis or deformity SKIN: No rashes CENTRAL NERVOUS SYSTEM: No focal deficits, tone is normal in all 4 extremities. EXTREMITIES: There is no peripheral edema. No clubbing, no cyanosis. Peripheral pulses are intact. - Labs CBC & Chem 7: 06/06/23 11:38 06/06/23 05:40 Labs: Abnormal Lab Results - Last 24 Hours (Table) 06/05/23 06/06/23 06/06/23 Range/Units 13:18 05:40 11:38 WBC 15.8 H (3.8-10.6) k/uL Neutrophils # 11.4 H (1.3-7.7) k/uL Sodium 134 L (137-145) mmol/L Potassium 5.3 H (3.5-5.1) mmol/L Chloride 111 H (98-107) mmol/L Carbon Dioxide 13 L (22-30) mmol/L BUN 52 H (7-17) mg/dL Creatinine 1.14 H (0.52-1.04) mg/dL Glucose 54 L (74-99) mg/dL Total Protein 4.5 L (6.3-8.2) g/dL Albumin 2.0 L (3.5-5.0) g/dL Fluid Appearance Bloody A (Clear) Microbiology - Last 24 Hours (Table) 06/05/23 13:18 Gram Stain - Preliminary Pleural Fluid Assessment and Plan Assessment: New onset atrial fibrillation with RVR, converted to normal sinus rhythm and the patient Is currently hemodynamically stable. Patient is currently on Cordarone and Coreg. Anticoagulation with Eliquis, currently on hold for procedures. Acute hypoxic respiratory failure post bronchoscopy May 24 2023 and the patient is currently on 4 L of oxygen by nasal cannula. Chest x-ray findings are stable and is consistent with a right upper lobe mass, pleural thickening and loculated right-sided pleural effusion. CT scan of the chest June 02, 2023 now revealing diffuse airspace opacities in the right lung. Moderate right pleural effusion. Ultrasound of the right chest reveals a loculated 7.2 cm pocket. Pigtail catheter placed 06/05/2023. She did undergo EGD today May 29, 2023 due to her dysphagia, unintentional claudia ght loss and anticoagulant use. 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 She did undergo follow-up EGD May 31, 2023 for esophageal dilatation. Right upper lobe masslike consolidation measuring 4.0 cm in addition to extensive mediastinal lymphadenopathy involving the paratracheal, right hilar and suprahilar area and the patient has significant pleural surface irreg ularities and multiloculated right-sided pleural effusions. Note that the pleural surface is quite thickened and is reaching approximately 1.3 cm with significant irregularities and previous thoracentesis yielded no final pathology diagnosis. She did undergo an endobronchial ultrasound and biopsy of the mediastinal lymph nodes on May 24, 2023. Biopsies reveal possible poorly differentiated non-small cell carcinoma likely adenocarcinoma of the lung origin versus mesothelioma versus less likely lymphoma. Results from [facility] are pending. Mediastinal lymphadenopathy detail discussed above, awaiting final pathology post biopsy Chest wall pain with an irregular pleural surface border with multiple nodularities and secondary pain. This is likely malignant process. Rule out m esothelioma versus adenocarcinoma versus lymphoma. Offered nonsteroidal anti- inflammatory medications for pain control. Pleural effusion with previous thoracentesis removed approximately 1.6 to 2 L of pleural fluid from the right lung. The fluid was exudative. The fluid cytology came back negative for malignancy Coronary arteriosclerosis with previous coronary artery bypass grafting Chronic systolic heart failure diagnosed by an echocardiogram that was done and the patient has ejection fraction of 25% and she has some edema in lower extremities and she is seeing cardiology and she is currently on diuretics and she is taking Lasix at a dose of 40 mg once a day Non-Hodgkin's lymphoma (clinical) She is in remission and she was diagnosed in 2013 and she has completed the chemotherapy. This involved the jaw and the head and neck Type 2 diabetes mellitus Maintained on Metformin and glyburide Rheumatoid arthritis On no treatment and she is off Ramicade Medical debility along with weight loss and diminished appetite and failure to thrive Plan: The patient was seen and evaluated Chest x-ray, labs and medications reviewed Final pathology results still pending Pigtail catheter placed CT services consulted for alteplase/dornase infusions Resume Eliquis Continue cefepime Sodium bicarb infusion per nephrology We will continue to follow I have personally seen and examined the patient, performed the documentation and the assessment and plan as written. Number of minutes spent on the visit: 10.
[2023-06-06] MEDS: SODIUM ZIRCONIUM CYCLOSILICATE 10 GM PACKET PO ONE (15:18)
[2023-06-06] MEDS: DEXTROSE 5% IN WATER 1,000 ML with SODIUM BICARB (1 MEQ/ML) 150 ML IV SCH (15:21)
[2023-06-06 17:36] LABS: Glucose,Whole Blood 86 mg/dL (70-110)
[2023-06-06] MEDS: Apixaban Initiation Dose--VTE 5 MG TAB PO SCH (20:09)
[2023-06-06] MEDS: SODIUM BICARBONATE TAB 650 MG TAB PO SCH (20:09)
[2023-06-06 20:45] LABS: Glucose,Whole Blood 108 mg/dL (70-110)
[2023-06-07 05:36] LABS: Glucose,Whole Blood 87 mg/dL (70-110)
--- NOTE | 2023-06-07 05:44 | P.PN ---
Subjective Progress Note Date: 06/06/23 Patient is a 82-year-old female with a past medical history of coronary artery disease status post quadruple bypass in 2009 in [place], history of non- Hodgkin's lymphoma, hypertension, diabetes type 2, hyperlipidemia, history of NC, osteoarthritis, rheumatoid others, hypothyroidism. Patient was brought to the hospital for bronchoscopy with endoscopic ultrasound and DVT aspiration biopsy of the mediastinal lymph node.. Postprocedure while in the recovery room patient went into atrial fibrillation with rapid ventricular rate and heart rate went up to 130s. EKG showed atrial fibrillation with rapid ventricular rate. Cardizem drip was ordered but before starting the infusion patient converted back to sinus rhythm and heart rate came down to 70s. She was admitted to the hospital for further evaluation Patient was recently admitted to the hospital from 04/15/2023 to 04/21/2023. She is admitted due to worsening shortness of breath, requiring BiPAP. Patient was also found to have right-sided pleural effusion status post paracentesis showed reactive mesothelial cells, macrophages and mixed inflammatory cells. No c cytologically malignant cells identified. CT chest on 04/15/2023 showed large right-sided pleural effusion. Repeat CT on 05/07/2023 showed decreasing but residual moderate right pleural effusion, however there is worsening irregular dural thickening/throughout the right hemithorax now measuring up to 1.3 cm thick versus 1.0 cm previously. Focal subpleural soft tissue anteromedial right lower lung measures up to 3.3 cm and appears new. New diffuse subpleural nodularity along the right-sided lung fissures. Correlate for slight interval neoplastic disease present progression, possible lymphoma. Currently patient denies any complaints of chest pain. No worsening shortness of breath. Denies any palpitations. No nausea vomiting abdominal pain or diarrhea. Patient is on Ventimask which is being titrated down to nasal cannula oxygen. No complaints of fever or chills. No diarrhea. No cough or sputum production. Denies any worsening leg swelling recently. 05/25/2023 Patient is sitting on the side of the bed. Awake alert and oriented x 3. Complains of bloating and abdominal and not able to tolerate oral diet. No bowel movement today. Otherwise patient is having atrial fibrillation with RVR last night on and off. Was started on amiodarone drip and added anticoagulation with Eliquis as per cardiology recommendations. Patient was also found to have elevated free T4 level and low TSH level. Levothyroxine dose reduced to 125 mcg daily from 200 mcg which she takes at home. Otherwise patient has been afebrile. Requiring oxygen via nasal cannula. No complaints of chest pain. Does have exertional shortness of breath. Laboratory data showed Pulmonary and cardiology is on board. WBC 11.0 hemoglobin 12.7 platelets 151 Sodium 136 potassium 5.4 chloride 107 bicarb is 19 BUN 59 and creatinine 0.78 and blood sugar 165 TSH 0.276 and free T4 3.66. 05/26/2023 Patient is currently sitting on the side of the bed. Awake alert and oriented x 3. Feels weak and lethargic. Currently on oxygen at 4 L via nasal cannula. Otherwise heart rate is better controlled and amiodarone changed to p.o. Patient did have a swallow evaluation. Recommends EGD as per speech pathology. Otherwise patient has been afebrile. Blood pressure is marginal. Laboratory data reviewed. Cardiology and pulmonary is on board. 05/26. Patient seen and examined. Complaining of back pain. Currently on 3 L of oxygen. Gets short of breath on minimal exertion. Complaining of dysphagia 05/27. Patient seen and examined. Continues to be on 4 L of oxygen. 05/28. Patient seen and examined. General surgery are planning EGD today. Breathing has improved. Denies any chest pain. Vital signs stable lab work done showed WBC 9.29, hemoglobin 9.2, platelet count 131, sodium 133, potassium 5.6 05/29. Patient seen and examined. 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 Patient seen examined. Patient scheduled for repeat EGD today. Patient potassium level was elevated at 5.5, ordered Lokelma. Still complaining of shortness of breath. 05/31. Patient seen and examined.Blood work done this morning showed WBC 10.4, hemoglobin is 12.2, platelet count is 149,. Sodium 137 potassium 5.3, BUN 35.8, creatinine 0.7. Patient complaining of generalized weakness. Appetite has improved. PT and OT recommend rehab, 06/01. Patient seen and examined. Patient was seen by hematology oncology, they ordered MRI brain and outpatient PET scan. Chest x-ray done showed worsening opacity on the right with near complete whiteout appearance of the right hemothorax. CT chest done showed diffuse airspace opacity in the right lung concerning for pneumonia, moderate right pleural effusion, right upper lung masslike area seen in the pleural thickening suggested the mass of the right upper lung appears increased in size from prior. MRI brain negative for any mass or acute stroke. 06/02. Patient seen and examined.. Ultrasound right chest done showed loculated pocket on the right side 7.6 cm in size. Pulmonology recommended IR cons ultation for pigtail catheter placement 06/03. Patient seen and examined. Blood work done this morning showed WBC 12.92, hemoglobin 0.3, platelet count 161, pulmonology recommend pigtail catheter placement. Patient was sitting upright in the chair, stated breathing remains the same as yesterday 06/05/2023 Patient is seen in follow-up this morning status post pigtail catheter placeme nt. Patient was n.p.o. scheduled to be evaluated by interventional radiology as patient persists with pleural effusions. Pulmonary following as well and patient is maintained on breathing treatments. Patient sounds wet with bronchial congestion noted on exam and will initiate DuoNeb treatments and obtain a chest x-ray. Patient is afebrile and will follow-up with repeat labs. Recommend sitting up in the chair more often and out of the bed. Will have PT/OT therapy evaluate the patient. CT surgery is consulted and pending. Oncology following and pathology is pending as well 06/06/2023 Patient is seen this morning in follow-up has received a chest tube with CT surgery along with pulmonary and oncology following. Patient is maintained on antibiotics and cultures thus far are negative. 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 Patient reports shortness of breath has improved post chest tube placement and CT surgery is following administering alteplase daily with follow-up chest x-rays. Patient is afebrile with no reports of worsening shortness of breath and denies any chest pain or palpitations. Patient tolerating diet although not much of an appetite encouraged oral intake and will events. Patient with extreme weakness and nursing staff reports patient attempting to get up from the chair to the bed with extreme weakness. Had a lengthy discussion with patient along with family members at regarding CODE STATUS. Patient will be no code. Patient continues to want to await pathology report about treatment options. Overall prognosis is extremely guarded REVIEW OF SYSTEMS: CONSTITUTIONAL: No fever, reports of malaise,. CARDIOVASCULAR: No chest pain, no palpitations, no syncope. PULMONARY: As mentioned above GASTROINTESTINAL: No diarrhea, no nausea, no vomiting, no abdominal pain. Reports not much of an appetite NEUROLOGICAL: No headaches, no weakness, reports generalized weakness PHYSICAL EXAMINATION: GENERAL: The patient is an 82-year-old female who is alert and oriented x3, not in any acute distress. Ill appearing, elderly appearing HEENT: Pupils are round and equally reacting to light. EOMI. No scleral icterus. No conjunctival pallor. Normocephalic, atraumatic. No pharyngeal erythema. No thyromegaly. CARDIOVASCULAR: S1 and S2 present. No murmurs, rubs, or gallops. PULMONARY: Coarse breath sound bilaterally, bilateral crackles audible, bronchia l congestion is improved from yesterday. ABDOMEN: Soft, nontender, nondistended, normoactive bowel sounds. No palpable organomegaly. MUSCULOSKELETAL: No joint swelling or deformity. EXTREMITIES: No cyanosis, clubbing, or pedal edema. NEUROLOGICAL: Gross neurological examination did not reveal any focal deficits. Diffusely weak SKIN: No rashes. Assessment: New onset atrial fibrillation with rapid ventricular rate, currently rate controlled Diffuse subpleural nodularity along the right sided lung fissures correlate for interval neoplastic disease progression. Mediastinal lymphadenopathy. Patient is s/p bronchoscopy and endobronchial ultrasound with needle biopsy on 05/24/2023. Most likely non-small cell although awaiting finalized report from [facility] Acute hypoxic respiratory failure status post bronchoscopy. Right upper lobe masslike consolidation measuring 4.0 cm in addition to extensive mediastinal lymphadenopathy involving the paratracheal, right hilar and suprahilar area, status post chest tube placement currently receiving alteplase for loculation Recent admission with acute hypoxic respiratory failure status post right thoracentesis. fluid cytology negative for malignancy. Chronic CHF with systolic dysfunction ejection fraction 25 to 30%, mid to distal inferolateral and lateral wall hypokinesis and inferior apical wall hypokinesis. Ischemic cardiomyopathy Hyperkalemia, improved. 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 Generalized weakness with gait dysfunction Hypothyroidism. Patient has elevated free T4 level. Levothyroxine dose reduced to 125 mcg daily. History of non-Hodgkin's lymphoma status postchemotherapy. Currently in remission. GI prophylaxis DVT prophylaxis No code Plan: Multiple medical consultations following including pulmonary and CT surgery as patient is status post chest tube placement currently receiving alteplase daily for loculated fusion. Cultures thus far negative and patient is continued on antibiotics Pathology pending second opinion from [facility], most likely non- small cell lung primary Oncology following awaiting on pathology report to discuss further options. Patient reports she wants to continue to treat the cancer Continue with supplemental oxygen and wean off O2 as tolerated. Encouraged increase activity as tolerated, recommend PT/OT therapy daily as patient is significantly weak. Per nursing staff patient attempted to get up f rom the chair to the bed and was assisted to the floor with no injuries noted. Encouraged oral intake Continue monitoring Accu-Cheks ACHS and will continue current regimen and adjust insulins accordingly Repeat labs in the a.m. and replace electrolytes per protocol Due to multiple complex medical issues, prognosis is extremely guarded Discussed CODE STATUS with patient and family at the bedside and patient will be no code. Patient wants to continue awaiting pathology report and discussing with oncology about treatment options The impression and plan of care has been dictated by Kami Montoya, Nurse Practitioner as directed. Dr. Byron MD I have performed a history and examination and MDM of this patient, discussed the same with the dictator, and agree with the dictator's assessment and plan as written ,documented as a scribe. Based on total visit time, I have performed more than 50% of the visit. Objective - Vital Signs Vital signs: Vital Signs Temp 98.5 F 06/06/23 07:09 Pulse 66 06/06/23 10:07 Resp 16 06/06/23 07:09 BP 97/46 06/06/23 10:07 Pulse Ox 95 06/06/23 10:07 FiO2 Intake & Output 06/05/23 06/06/23 06/06/23 18:59 06:59 18:59 Intake Total 120 Output Total 850 Balance 120 -850 Weight 79.3 kg 87.5 kg Intake: Oral 120 Output: Chest Tube Drainage 850 Chest Tube Right 850 Posterior Chest Other: Voiding Method Toilet Toilet # Voids 2 - Labs CBC & Chem 7: 06/06/23 11:38 06/06/23 05:40 Labs: Abnormal Lab Results - Last 24 Hours (Table) 06/02/23 06/05/23 06/06/23 Range/Units 17:58 13:18 05:40 WBC (3.8-10.6) k/uL Neutrophils # (1.3-7.7) k/uL Sodium 134 L (137-145) mmol/L Potassium 5.3 H (3.5-5.1) mmol/L Chloride 111 H (98-107) mmol/L Carbon Dioxide 13 L (22-30) mmol/L BUN 52 H (7-17) mg/dL Creatinine 1.14 H (0.52-1.04) mg/dL Glucose 54 L (74-99) mg/dL Total Protein 4.5 L (6.3-8.2) g/dL Albumin 2.0 L (3.5-5.0) g/dL Fluid Appearance Bloody A (Clear) Free [place] LC, Quant 11.55 H (0.33-1.94) mg/dL 06/06/23 Range/Units 11:38 WBC 15.8 H (3.8-10.6) k/uL Neutrophils # 11.4 H (1.3-7.7) k/uL Sodium (137-145) mmol/L Potassium (3.5-5.1) mmol/L Chloride (98-107) mmol/L Carbon Dioxide (22-30) mmol/L BUN (7-17) mg/dL Creatinine (0.52-1.04) mg/dL Glucose (74-99) mg/dL Total Protein (6.3-8.2) g/dL Albumin (3.5-5.0) g/dL Fluid Appearance (Clear) Free [place] LC, Quant (0.33-1.94) mg/dL Microbiology - Last 24 Hours (Table) 06/05/23 13:18 Gram Stain - Preliminary Pleural Fluid
--- NOTE | 2023-06-07 07:22 | XR ---
EXAMINATION TYPE: XR chest 1V portable DATE OF EXAM: 06/07/2023 COMPARISON: 06/05/2023 INDICATION: Right pleural effusion TECHNIQUE: Frontal and lateral views of the chest are obtained. FINDINGS: The heart size is normal. The pulmonary vasculature is normal. There is infiltrate throughout the right lung. Small effusion may be present. Minimal left pleural ef fusion is present. Sternotomy wires are in the midline. IMPRESSION: 1. Diffuse infiltrate through the right lung. Continued Follow-up is recommended. 2. Minimal left pleural effusion.
[2023-06-07 08:27] LABS: Basophils # (A) 0.04 X 10*3/uL (0.00-0.10); Basophils % (A) 0.4 %; Eosinophils # (A) 0.55 X 10*3/uL (0.04-0.35); Lymphocytes % (A) 23.4 %; MCH 30.8 pg (27.0-32.0); MCHC 31.4 g/dL (32.0-37.0); Monocytes # (A) 1.05 X 10*3/uL (0.20-1.00); Monocytes % (A) 9.5 %; NRBC Per 100 WBC 0 X 10*3/uL (0.00-0.01); Neutrophils # (A) 6.82 X 10*3/uL (1.80-7.70); Neutrophils % (A) 61.3 %; Platelet Count 139 X 10*3/uL (140-440); RBC 3.57 X 10*6/uL (4.10-5.20); RDW 16.3 % (11.5-14.5)
[2023-06-07 08:40] LABS: ALT 14 U/L (8-44); AST 22 U/L (13-35); Albumin 2.5 g/dL (3.8-4.9); Albumin/Globulin Ratio 1.39 Ratio (1.60-3.17); Alkaline Phosphatase 49 U/L (41-126); BUN/Creat Ratio 39.92 Ratio (12.00-20.00); Blood Urea Nitrogen 47.9 mg/dL (9.0-27.0); Calcium 8.2 mg/dL (8.7-10.3); Carbon Dioxide 21.8 mmol/L (21.6-31.8); Chloride 102 mmol/L (96-109); Globulin 1.8 g/dL (1.6-3.3); Glucose 74 mg/dL (70-110); Magnesium 1.8 mg/dL (1.5-2.4); Potassium 4.4 mmol/L (3.5-5.5); Sodium 136 mmol/L (135-145); Total Bilirubin 0.3 mg/dL (0.3-1.2); Total Protein 4.3 g/dL (6.2-8.2)
[2023-06-07] MEDS: DORNASE ALFA 5 MG in SODIUM CHLORIDE 0.9% 50 ML IRRIGATION ONE (10:36)
[2023-06-07] MEDS: ALTEPLASE 10 MG in SODIUM CHLORIDE 0.9% 50 ML IRRIGATION ONE (10:36)
--- NOTE | 2023-06-07 11:38 | P.PN ---
Subjective Progress Note Date: 06/07/23 Principal diagnosis: Right-sided recurrent loculated pleural effusion, status postplacement of pigtail catheter, acute hypoxic respiratory failure, fine-needle aspiration positive for malignant neoplasm, final pathology pending report from [facility], new onset atrial fibrillation. History of coronary artery disease status post four-vessel CABG in 2009, chronic heart failure with reduced ejection fraction, hypertension, hyperlipidemia, diabetes, osteoarthritis, rh eumatoid arthritis, hypothyroid The patient was seen and examined sitting up in bed on the medical surgical unit in no acute distress. Remains on 5 L nasal cannula. First dose of lytic instillation done yesterday, patient drained 500 mL since instillation. States her breathing feels a bit better. Chest x-ray reviewed. Will instill second dose of lytics today. Objective - Vital Signs Vital signs: Vital Signs Temp 98.2 F 06/07/23 07:49 Pulse 60 06/07/23 08:12 Resp 18 06/07/23 08:05 BP 108/63 06/07/23 07:49 Pulse Ox 95 06/07/23 07:49 FiO2 Intake & Output 06/06/23 06/07/23 06/07/23 18:59 06:59 18:59 Output Total 1090 225 Balance -1090 -225 Weight 84.5 kg Output: Chest Tube Drainage 1090 Chest Tube Right 1090 Posterior Chest Drainage 225 Right Medial Back 225 Other: Voiding Method Toilet External Catheter # Voids 1 - Exam CONSTITUTIONAL: Appears comfortable, cooperative, no acute distress RESPIRATORY: Lungs sounds diminished bilaterally. Respirations even, nonlabored. Currently on 5 L nasal cannula with oxygen saturation 95%. Able to achieve 500 mL on incentive spirometry. Strong cough. CARDIOVASCULAR: S1, S2 present. Regular rate and rhythm. Palpable peripheral pulses bilaterally. Generalized edema present. No calf pain or tenderness noted. SCDs present. GASTROINTESTINAL: Abdomen soft, nontender, nondistended. Active bowel sounds present 4 quadrants. Tolerating diet GENITOURINARY: Continues to void INTEGUMENTARY: Skin is warm and dry with evidence of good perfusion. Thoracic incision well approximated and covered with dry intact dressing. NEUROLOGIC: Cranial nerves II through XII intact MUSKULOSKELETAL: Able to move all extremities, strength equal bilaterally PSYCHIATRIC: Alert and oriented to person place and time, appropriate affect, intact judgment and insight INVASIVE LINES AND TUBES: Right pigtail catheter present and connected to wall suction, tiny intermittent air leak present, 500 mL drainage in the last 24 hours - Allied health notes Allied health notes reviewed: nursing - Labs CBC & Chem 7: 06/07/23 05:39 06/07/23 05:39 Labs: Abnormal Lab Results - Last 24 Hours (Table) 06/06/23 06/06/23 06/07/23 Range/Units 11:38 11:38 05:39 WBC 15.8 H 11.10 H (3.8-10.6) k/uL RBC 3.57 L (4.10-5.20) X 10*6/uL Hgb 11.0 L (12.0-15.0) g/dL Hct 35.0 L (37.2-46.3) % MCV 98.0 H (80.0-97.0) FL MCHC 31.4 L (32.0-37.0) g/dL RDW 16.3 H (11.5-14.5) % Plt Count 139 L (140-440) X 10*3/uL Neutrophils # 11.4 H (1.3-7.7) k/uL Monocytes # 1.05 H (0.20-1.00) X 10*3/uL Eosinophils # 0.55 H (0.04-0.35) X 10*3/uL Anion Gap (4.00-12.00) mmol/L BUN (9.0-27.0) mg/dL Est GFR (CKD-EPI) (>=60) BUN/Creatinine Ratio (12.00-20.00) Ratio Calcium (8.7-10.3) mg/dL Total Protein (6.2-8.2) g/dL Albumin (3.8-4.9) g/dL Albumin/Globulin Ratio (1.60-3.17) Ratio Procalcitonin 0.13 H (0.02-0.09) ng/mL 06/07/23 Range/Units 05:39 WBC (3.8-10.6) k/uL RBC (4.10-5.20) X 10*6/uL Hgb (12.0-15.0) g/dL Hct (37.2-46.3) % MCV (80.0-97.0) FL MCHC (32.0-37.0) g/dL RDW (11.5-14.5) % Plt Count (140-440) X 10*3/uL Neutrophils # (1.3-7.7) k/uL Monocytes # (0.20-1.00) X 10*3/uL Eosinophils # (0.04-0.35) X 10*3/uL Anion Gap 12.20 H (4.00-12.00) mmol/L BUN 47.9 H (9.0-27.0) mg/dL Est GFR (CKD-EPI) 45 L (>=60) BUN/Creatinine Ratio 39.92 H (12.00-20.00) Ratio Calcium 8.2 L (8.7-10.3) mg/dL Total Protein 4.3 L (6.2-8.2) g/dL Albumin 2.5 L (3.8-4.9) g/dL Albumin/Globulin Ratio 1.39 L (1.60-3.17) Ratio Procalcitonin (0.02-0.09) ng/mL Microbiology - Last 24 Hours (Table) 06/01/23 18:37 Blood Culture - Final Blood 06/05/23 13:18 Gram Stain - Preliminary Pleural Fluid Body Fluid Culture - Preliminary - Imaging and Cardiology Chest x-ray: report reviewed, image reviewed Assessment and Plan Assessment: Right-sided recurrent loculated pleural effusion, status postplacement of p igtail catheter Acute hypoxic respiratory failure Fine-needle aspiration positive for malignant neoplasm, final pathology pending report from [facility] Shortness of breath secondary to above New onset atrial fibrillation, currently sinus Coronary artery disease status post four-vessel CABG in 2009 Chronic heart failure with reduced ejection fraction, 25 to 30% Hypertension Hyperlipidemia Diabetes Osteoarthritis Rheumatoid arthritis Hypothyroid Plan: Second dose of lytics instilled today, allow 1 to 2 hours dwell time before returning to continuous wall suction, monitor drainage Wean O2 as tolerated, encourage incentive spirometry use 10 times every hour while awake Increase activity as tolerated Will monitor daily x-rays Medical management of other comorbidities per internal medicine, pulmonology More recommendations to follow
[2023-06-07 11:47] LABS: Glucose,Whole Blood 101 mg/dL (70-110)
--- NOTE | 2023-06-07 12:11 | P.PN ---
Subjective Progress Note Date: 06/06/23 At today's visit patient is resting comfortably in bedside chair. Reporting improvement in breathing s/p pigtail catheter placement. Bloody outpt noted. Continues on IV antibiotics. Patient afebrile. SpO2 95% on 5 L. Patient reports [place] is helping improve pain. Objective - Vital Signs Vital signs: Vital Signs Temp 98.2 F 06/07/23 07:49 Pulse 60 06/07/23 08:12 Resp 18 06/07/23 08:05 BP 108/63 06/07/23 07:49 Pulse Ox 95 06/07/23 07:49 FiO2 Intake & Output 06/06/23 06/07/23 06/07/23 18:59 06:59 18:59 Output Total 1090 225 Balance -1090 -225 Weight 84.5 kg Output: Chest Tube Drainage 1090 Chest Tube Right 1090 Posterior Chest Drainage 225 Right Medial Back 225 Other: Voiding Method Toilet External Catheter # Voids 1 - Constitutional General appearance: Present: average body habitus, no acute distress - EENT Eyes: Present: anicteric sclerae, EOMI ENT: Present: hearing grossly normal - Respiratory Details: Breathing even an unlabored - Cardiovascular Details: skin warm and dry - Gastrointestinal General gastrointestinal: Present: soft. Absent: tenderness - Integumentary Integumentary: Absent: cyanotic - Musculoskeletal Musculoskeletal: Present: generalized weakness - Psychiatric Psychiatric: Present: A&O x's 3 - Labs CBC & Chem 7: 06/07/23 05:39 06/07/23 05:39 Labs: Abnormal Lab Results - Last 24 Hours (Table) 06/06/23 06/06/23 06/07/23 Range/Units 11:38 11:38 05:39 WBC 15.8 H 11.10 H (3.8-10.6) k/uL RBC 3.57 L (4.10-5.20) X 10*6/uL Hgb 11.0 L (12.0-15.0) g/dL Hct 35.0 L (37.2-46.3) % MCV 98.0 H (80.0-97.0) FL MCHC 31.4 L (32.0-37.0) g/dL RDW 16.3 H (11.5-14.5) % Plt Count 139 L (140-440) X 10*3/uL Neutrophils # 11.4 H (1.3-7.7) k/uL Monocytes # 1.05 H (0.20-1.00) X 10*3/uL Eosinophils # 0.55 H (0.04-0.35) X 10*3/uL Anion Gap (4.00-12.00) mmol/L BUN (9.0-27.0) mg/dL Est GFR (CKD-EPI) (>=60) BUN/Creatinine Ratio (12.00-20.00) Ratio Calcium (8.7-10.3) mg/dL Total Protein (6.2-8.2) g/dL Albumin (3.8-4.9) g/dL Albumin/Globulin Ratio (1.60-3.17) Ratio Procalcitonin 0.13 H (0.02-0.09) ng/mL 06/07/23 Range/Units 05:39 WBC (3.8-10.6) k/uL RBC (4.10-5.20) X 10*6/uL Hgb (12.0-15.0) g/dL Hct (37.2-46.3) % MCV (80.0-97.0) FL MCHC (32.0-37.0) g/dL RDW (11.5-14.5) % Plt Count (140-440) X 10*3/uL Neutrophils # (1.3-7.7) k/uL Monocytes # (0.20-1.00) X 10*3/uL Eosinophils # (0.04-0.35) X 10*3/uL Anion Gap 12.20 H (4.00-12.00) mmol/L BUN 47.9 H (9.0-27.0) mg/dL Est GFR (CKD-EPI) 45 L (>=60) BUN/Creatinine Ratio 39.92 H (12.00-20.00) Ratio Calcium 8.2 L (8.7-10.3) mg/dL Total Protein 4.3 L (6.2-8.2) g/dL Albumin 2.5 L (3.8-4.9) g/dL Albumin/Globulin Ratio 1.39 L (1.60-3.17) Ratio Procalcitonin (0.02-0.09) ng/mL Microbiology - Last 24 Hours (Table) 06/01/23 18:37 Blood Culture - Final Blood 06/05/23 13:18 Gram Stain - Preliminary Pleural Fluid Body Fluid Culture - Preliminary Assessment and Plan (1) Mediastinal lymphadenopathy Current Visit: Yes Status: Acute Priority: High Code(s): R59.0 - LOCALIZED ENLARGED LYMPH NODES SNOMED Code(s): 64800850 (2) Diffuse large B cell lymphoma Current Visit: No Status: Acute Priority: Medium Code(s): C83.30 - DIFFUSE LARGE B-CELL LYMPHOMA, UNSPECIFIED SITE SNOMED Code(s): 275098366 (3) Pleural effusion, right Current Visit: Yes Status: Acute Priority: High Code(s): J90 - PLEURAL EFFUSION, NOT ELSEWHERE CLASSIFIED SNOMED Code(s): 95054921 (4) Paraproteinemia Current Visit: Yes Status: Acute Priority: Medium Code(s): D89.2 - HYPERGAMMAGLOBULINEMIA, UNSPECIFIED SNOMED Code(s): 411696745 Plan: Mediastinal lymphadenopathy, soft tissue mass: Patient states she has been experiencing dysphagia for the last couple months. Along with an approximate 30 pound weight loss with associated decreased appetite. CT chest obtained on 05/03/2023 revealed decreasing but residual moderate right pleural effusion. With worsening irregular pleural thickening/rind throughout the right hemithorax now measuring up to 1.3 cm thick versus 1.0 cm previously. Focal subpleural soft tissue anterior medial right lower lung measuring up to 3.3 cm. New diffuse subpleural nodularity along the right sided lung fissures. Pleural fluid cytoloy on 04/15/23 was negative for malignancy. -Patient was admitted for bronchoscopy/EBUS for biopsy of noted mediastinal lymph nodes and had procedure on 05/24/[address] Parsons. Per procedure note, mediastinal lymph nodes revealed a 9.5x16 mm station 10 R lymph node, a 7x10 mm station 7 lymph nodes. Biopsies were obtained. -Repeat CT chest on 06/01 revealed diffuse airspace opacities in the right lung. Moderate right pleural effusion. Right upper lung masslike area seen with pleural thickening. Mass of the right upper lung appears increased in size from prior - Pathology positive for malignant neoplasm. Differential includes poorly differentiated non-small cell carcinoma, possible lung origin, versus mesothelioma versus lymphoma. Pathology has been sent to [facility] for further review, path report pending -Brain MRI ordered and will plan for PET CT outpt to complete staging. MRI brain revealed no evidence of intracranial mass, acute/subacute infarct or abnormal enhancement -Findings and results were discussed in detail with patient and family. All questions answered. Will await final path report, pending [facility] -Clinic f/u will be scheduled with Dr. Gandhi upon discharge, pending course of hospitalization and possible need for rehab Afib RVR/SOB: -Went into a-fib RVR post op. Started on cardizem drip, and converted -Progressing SOB x and right sided upper chest/back pain -CT chest showing diffuse airspace opacities in the right lung concerning for pneumonia. Chest ultrasound revealed large loculated right pleural effusion, p ocket size 7.6 cm. -S/p pigtail catheter placement. Bloody outpt noted. Reporting improvement in b reathing. Cytology pending -Continues on IV antibiotics. -Defer management to pulm and IM teams Paraproteinemia: - Immunofixation revealed IgG kappa, with M spike of 0.19 Immunoglobulins WNL, kappa and lambda ratio mildly elevated at 2.13 - Findings consistent with MGUS. Recommend monitoring in the outpt setting Hx Diffuse large B cell Lymphoma: -Full history in consult HPI. Was in observation with Dr. Gandhi with no noted recurrence of disease, last seen in 2019
--- NOTE | 2023-06-07 12:34 | P.PN ---
Subjective patient is seen for follow-up for hyperkalemia and hypercalcemia. Maintained on oral Lasix voiding on her own. serum creatinine at 1.2 today maintained on sodium bicarb drip at 50 mL an hour. Objective - Vital Signs Vital signs: Vital Signs Temp 98.2 F 06/07/23 07:49 Pulse 60 06/07/23 08:12 Resp 18 06/07/23 08:05 BP 108/63 06/07/23 07:49 Pulse Ox 95 06/07/23 07:49 FiO2 Intake & Output 06/06/23 06/07/23 06/07/23 18:59 06:59 18:59 Output Total 1090 225 Balance -1090 -225 Weight 84.5 kg Output: Chest Tube Drainage 1090 Chest Tube Right 1090 Posterior Chest Drainage 225 Right Medial Back 225 Other: Voiding Method Toilet External Catheter # Voids 1 - Exam patient is awake, comfortable, no acute distress, lethargic Examination of the heart S1 and S2 Examination of the lungs bilateral breath sounds are heard Abdomen is soft nontender Examination of lower extremities shows 1+ edema bilaterally, improved [employer] exam grossly intact - Labs CBC & Chem 7: 06/07/23 05:39 06/07/23 05:39 Labs: Abnormal Lab Results - Last 24 Hours (Table) 06/06/23 06/06/23 06/07/23 Range/Units 11:38 11:38 05:39 WBC 15.8 H 11.10 H (3.8-10.6) k/uL RBC 3.57 L (4.10-5.20) X 10*6/uL Hgb 11.0 L (12.0-15.0) g/dL Hct 35.0 L (37.2-46.3) % MCV 98.0 H (80.0-97.0) FL MCHC 31.4 L (32.0-37.0) g/dL RDW 16.3 H (11.5-14.5) % Plt Count 139 L (140-440) X 10*3/uL Neutrophils # 11.4 H (1.3-7.7) k/uL Monocytes # 1.05 H (0.20-1.00) X 10*3/uL Eosinophils # 0.55 H (0.04-0.35) X 10*3/uL Anion Gap (4.00-12.00) mmol/L BUN (9.0-27.0) mg/dL Est GFR (CKD-EPI) (>=60) BUN/Creatinine Ratio (12.00-20.00) Ratio Calcium (8.7-10.3) mg/dL Total Protein (6.2-8.2) g/dL Albumin (3.8-4.9) g/dL Albumin/Globulin Ratio (1.60-3.17) Ratio Procalcitonin 0.13 H (0.02-0.09) ng/mL 06/07/23 Range/Units 05:39 WBC (3.8-10.6) k/uL RBC (4.10-5.20) X 10*6/uL Hgb (12.0-15.0) g/dL Hct (37.2-46.3) % MCV (80.0-97.0) FL MCHC (32.0-37.0) g/dL RDW (11.5-14.5) % Plt Count (140-440) X 10*3/uL Neutrophils # (1.3-7.7) k/uL Monocytes # (0.20-1.00) X 10*3/uL Eosinophils # (0.04-0.35) X 10*3/uL Anion Gap 12.20 H (4.00-12.00) mmol/L BUN 47.9 H (9.0-27.0) mg/dL Est GFR (CKD-EPI) 45 L (>=60) BUN/Creatinine Ratio 39.92 H (12.00-20.00) Ratio Calcium 8.2 L (8.7-10.3) mg/dL Total Protein 4.3 L (6.2-8.2) g/dL Albumin 2.5 L (3.8-4.9) g/dL Albumin/Globulin Ratio 1.39 L (1.60-3.17) Ratio Procalcitonin (0.02-0.09) ng/mL Microbiology - Last 24 Hours (Table) 06/01/23 18:37 Blood Culture - Final Blood 06/05/23 13:18 Gram Stain - Preliminary Pleural Fluid Body Fluid Culture - Preliminary Assessment and Plan Assessment: 1. Hyperkalemia. Takes lisinopril outpatient but currently held. Blood sugars not elevated. No significant acidosis. No urinary retention. Stable. Maintained on loop diuretics 2. Hypercalcemia secondary to vitamin D supplementation and concern for underlying malignancy. Vitamin D level 33.1. SCAR level low. PTH low at 5.1. TSH normal. 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 Calcium level better. 3. Dysphagia status post EGD with dilation. Surgery following. 4. A-fib with RVR. Stable. 5. Right upper lobe masslike consolidation with mediastinal lymphadenopathy concerning for malignancy. 6. History of lymphoma. 7. Diabetes mellitus. 8. Metabolic acidosis, non-gap 9. Right pleural effusion status post chest tube placement Plan: ccontinue with IV bicarb at 50 mL an hour Continue with oral Lasix Repeat labs in a.m. Decrease Coreg as blood pressure remains low
--- NOTE | 2023-06-07 13:47 | P.PN ---
Subjective Progress Note Date: 06/07/23 This is a 82-year-old female patient was suspected to have malignancy. The patient has been having progressive worsening in her health status in general. She has not been eating. She has been extremely weak and debilitated. She was in the hospital approximately a month ago and at that time she came in with acute hypoxic respiratory failure and the patient was initially supported with BiPAP and subsequently was found to have a right-sided pleural effusion. I performed a bedside thoracentesis on this patient and a total of 1.6 L of fluid was aspirated and fluid cytology was negative for malignancy. Echocardiogram showed impaired LV function with an EF of around 25 to 30% and there was some mid to distal anterolateral wall hypokinesis and apical hypokinesis. The patient also had mild to moderate aortic valve calcification without any stenosis. She is subsequent CAT scan of the chest showed a loculated moderate- sized right-sided pleural effusion and irregular pleural wall thickening and the rind throughout the right hemithorax up to 1.3 cm in size and there was also what seems to be right upper lobe mass with extension into the mediastinum in addition to lymphadenopathy within the right hilum measuring around 2.3 cm in size and right suprahilar measuring 1.9 cm in size and in the subcarinal area in addition. There was a mass in the right upper lobe that is pleural-based opacity measuring 4.0 cm in size. Of significance was extensive pleural surface irregularity and nodular structures and this was obviously a manifestation of a neoplastic process and the concern was adenocarcinoma versus mesothelioma versus lymphoma as the patient is known to have a previous history of lymphoma. This was explained to the patient and the family members at length. Family was adamant in establishing a diagnosis. Based on that, the patient was brought in today patient underwent an endobronchial ultrasound under general anesthesia. I did not biopsy the right upper lobe mass. I was going more conservative because of her medical problems and I ended up doing a transbronchial needle aspirate of station 10 R and station 7 lymph nodes. Note that following her procedure, the patient was extubated and she got transferred to recovery where she went into A- fib RVR. I ordered Cardizem drip and this was not started and by the time she was about to start the Cardizem she converted to normal sinus rhythm. I discussed the findings with the family. The family told me that the patient's condition was progressively getting worse and she was not eating and they were very much concerned about her health in general and they wanted to keep her in the hospital. As such, the patient will be hospitalized to telemetry unit. She is known to have a left atrial ejection fraction of 25%. She is also known to have history of rheumatoid arthritis and she is currently off Remicade. She has diabetes mellitus type 2, coronary artery disease, hyperlipidemia, hyperlipidemia, remote history of non-Hodgkin's lymphoma. On today's evaluation of 05/25/2023, the patient is stable on 4L of oxygen by nasal cannula. Her cardiac rhythm is back to sinus. She is started on anticoagulation and she is currently on Eliquis. She is also on Lasix 20 mg p.o. daily. She is on Coreg 6.25 mg twice a day. Denies having any new complaints. The white cell count 11 with a hemoglobin 12.7 and a platelet count of 151. Sodium is at 136, BUN is at 59 with a creatinine of 0.7 and a potassium level is at 5.4. Thyroid function test shows a TSH free of 3.66 with a free T4 of 0.276. The patient remains on levothyroxine at 125 mcg p.o. daily. The dose of the thyroid has been modified and the patient has been just from 200 mcg on 225. On today's evaluation of 05/26/2023, the patient is resting comfortably in bed. No specific complaints. She is lethargic and weak. She remains on 40s of oxygen by nasal cannula with a pulse ox of 94%. Results of the biopsy are still pending for now. The patient has no significant complaints. The patient has chest wall pain on the right. This is an ongoing chronic problem dated 2 abnormalities that were described earlier. The patient is currently in normal sinus mechanism. The patient's thyroid dose has been i adjusted by the medical group. Filing Writer also on the case. On today's evaluation of 05/27/2023, the patient is resting comfortably in bed. No specific complaints. Awaiting the results of the biopsy. WBC count is at 10.5 and hemoglobin 12 .7 and a platelet count of 135. The rest of the blood work shows a BUN of 62 with a creatinine of 1.09 and sodium levels at 131 with a potassium level of 5.8. The patient's is resting comfortably in bed. No other issues for now. She is complaining of pain along the right lateral chest area. She remains on anticoagulation with Eliquis 5 mg p.o. twice a day. She remains on her routine outpatient medications. Surgical consultation for dysphagia was done. Patient will be given an upper GI esophagogram and further workup regarding this dysphagia will be done depending on the results of the endobronchial ultrasound biopsies from the mediastinum. Highly suspicious for malignancy as mentioned. On today's evaluation of 05/28/2023, the patient resting comfortably in bed. No change in her condition. Awaiting final pathology from the biopsies and she should this should be available by Monday. Meanwhile, the patient has no specific complaints. She remains on 4 L with a pulse ox of 95%. Resting comfortably in bed. Pain remains unchanged. The patient is seen today May 29, 2023 in follow-up on the regular medical floor. She was initially here for an elective lung biopsy on May 24, 2023 but developed atrial fibrillation with a rapid ventricular response in the recovery room. She has been initiated on amiodarone. Anticoagulated with Eliquis. Pathology is still pending. She is maintaining O2 saturations in the 90s on 4 L/min per nasal cannula. She did undergo EGD today due to her dysphagia, unintentional weight loss and anticoagulant use. 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 White count 9.2. Hemoglobin 11.2. Platelets 131. Sodium 133. Potassium 5.6. Bicarb 24. BUN 44. Creatinine 0.8. Glucose 90. Patient was reevaluated today on 05/30/2023, pulmonary dos santos the patient is doing great, however she has GI issues being addressed by general surgery on the case. EGD on 05/28 showed AV malformation of the stomach surgery is still recommending holding anticoagulation until they do EGD dilatation which is scheduled for 05/05. Pulmonary dos santos no cough no wheezing no shortness of breath. And her atrial fibrillation seems to be relatively under control patient remains on 4 L nasal cannula with O2 sats of 96%, blood pressure 107/64, and A-fib seems to be controlled The patient is seen today May 31, 2023 in follow-up on the regular medical floor. She is awake and alert in no acute distress. She did undergo repeat EGD with rigid dilator for esophageal dilatation. Blood thinner Eliquis will be held for 48 hours. Ground diet recommended. Sodium 132. Potassium 5.5. Bicarb 22. BUN 40. Creatinine 0.78. Glucose 108. She remains on amiodarone. Continued on diuretics. Continued on Protonix. The patient is seen today June 01, 2023 in follow-up on the regular medical floor. She is resting comfortably in bed. Awake and alert in no acute distress. Maintaining O2 saturations in the 90s on 4 L/min per nasal cannula. White count 10.4. Hemoglobin 12.2. Platelets 149. Sodium 136. Potassium 5.3. Bicarb 24. BUN 36. Creatinine 0.7. Glucose 98. Initial pathology from fine- needle aspirate of the mediastinal lymph nodes revealed positive for malignant neoplasm however final results have been sent out to the [facility] and are pending. The patient is seen today June 02, 2023 in follow-up on the regular medical floor. She had gone down for CT scan of the chest and a MRI of the brain which was negative for metastasis. CT scan of the chest however revealing worsening and diffuse airspace opacities of the right lung. Moderate right pleural effusion. Right upper lung masslike area with pleural thickening. Biopsies reveal possible poorly differentiated non-small cell carcinoma likely adenocarcinoma of the lung origin versus mesothelioma versus less likely lymphoma. Results from [facility] are pending. She is maintaining good O2 saturations in the 90s on 4 L/min per nasal cannula. Afebrile. Hemodynamically stable. Glucose 119. Lactic acid 4.6. He remains on cefepime. Anticoagulated with Eliquis. The patient is seen today June 03, 2023 in follow-up on the regular medical floor. She is currently sitting up in bed. Awake and alert in no acute dis tress. Denies any worsening shortness of breath. She has a loose congested cough. No fever or chills. Maintaining O2 saturation in the low 90s on 5 L/min per nasal cannula. She is afebrile. Ultrasound of the right chest reveals a 7.6 cm loculated pocket. Blood culture revealed no growth. Biopsies reveal possible poorly differentiated non-small cell carcinoma likely adenocarcinoma of the lung origin versus mesothelioma versus less likely lymphoma. Results from [facility] are pending. White count 9.2. Hemoglobin 11.0. Platelets 127. Sodium 131. Potassium 4.6. Bicarb 20. BUN 41. Creatinine 0.86. He remains on cefepime. Continue on oral diuretics. The patient is seen today June 04, 2023 in follow-up on the regular medical floor. She is currently up in a chair at the bedside. She denies any worsening shortness of breath, cough or congestion. She is still dyspneic with exertion. She is maintaining good O2 saturations in the mid 90s on 4 L/min per nasal can nula. She is afebrile. Hemodynamically stable. Blood culture reveals no growth. White count 12.9. Hemoglobin 11.3. Platelets 161. Sodium 135. Potassium 5.0. Bicarb 20. BUN 40. Creatinine 1.0. Glucose 83. She is continued on cefepime. Remains on oral diuretics. The patient is seen today June 05, 2023 in follow-up on the regular medical floor. She is awake and alert in no acute distress. Currently resting fairly comfortably in bed. She has a productive cough. She is short of breath with conversation. Short of breath with minimal exertion. She is maintaining O2 saturations in the 90s on 5 L/min per nasal cannula. Plan is for right chest pigtail catheter insertion today. She remains on cefepime. Remains on oral diuretics. The patient is seen today June 06, 2023 in follow-up on the regular medical floor. She is awake and alert. She is sitting up in a chair at the bedside. She denies any worsening shortness of breath, cough or congestion. Maintaining good O2 saturation in the mid 90s on room air. She is afebrile. Hemodynamically stable. Chest x-ray reveals increased density throughout the right lung. Pigtail catheter was inserted yesterday. CT services consulted for possible alteplase/dornase infusions. Blood cultures revealed no growth. Pleural fluid cultures are pending. Fluid analysis is exudate with a total protein of 3.3 and an LDH of 1060. Cytology pending. White count 15.8. Hemoglobin 12.2. Platelets 197. Sodium 134. Potassium 5.3. Bicarb 13. BUN 52. Creatinine 1.14. Glucose 86. He is continued on DuoNeb inhalations. Oral diuretics. She has been initiated on sodium bicarbonate tablets and D5W with 3 A of bicarb at 50 MLS per hour. The patient is seen today June 07, 2023 in follow-up on the regular medical floor. She is currently sitting up in bed. Awake and alert in no acute distress. She is maintaining good O2 saturations in the 90s on 5 L/min per nasal cannula. She has D5W with 3 A of bicarb at 50 MLS per hour. She is on bronchodilators, oral diuretics, anticoagulated with Eliquis. She remains on antibiotics in the form of cefepime. Chest x-ray continues to show diffuse infiltrate through the right lung. Right-sided pigtail catheter is in place. She did have lytic instillation yesterday and approximately 500 mL of pleural fluid was returned. Cultures and cytology pending. The plan is for lytics again today per CT services. White count 11.1. Hemoglobin 11.0. Platelets 139. Sodium 136. Potassium 4.4. Bicarb 22. BUN 48. Creatinine 1.2. Glucose 87. Objective - Vital Signs Vital signs: Vital Signs Temp 98.2 F 06/07/23 07:49 Pulse 60 06/07/23 08:12 Resp 18 06/07/23 08:05 BP 108/63 06/07/23 07:49 Pulse Ox 95 06/07/23 07:49 FiO2 Intake & Output 06/06/23 06/07/23 06/07/23 18:59 06:59 18:59 Output Total 1090 225 Balance -1090 -225 Weight 84.5 kg Output: Chest Tube Drainage 1090 Chest Tube Right 1090 Posterior Chest Drainage 225 Right Medial Back 225 Other: Voiding Method Toilet External Catheter # Voids 1 - Exam GENERAL EXAM: Alert, 82-year-old female, resting in bed, on 5 L nasal cannula, in no apparent distress. HEAD: Normocephalic. EYES: Normal reaction of pupils, equal size. NOSE: Clear with pink turbinates. THROAT: No erythema or exudates. NECK: No masses, no JVD. CHEST: No chest wall deformity. LUNGS: Equal air entry with few scattered rhonchi, diminished in the right lung. Right-sided pigtail catheter in place CVS: S1 and S2 normal with no audible murmur, regular rhythm. ABDOMEN: No hepatosplenomegaly, normal bowel sounds, no guarding or rigidity. SPINE: No scoliosis or deformity SKIN: No rashes CENTRAL NERVOUS SYSTEM: No focal deficits, tone is normal in all 4 extremities. EXTREMITIES: There is no peripheral edema. No clubbing, no cyanosis. Periphera l pulses are intact. - Labs CBC & Chem 7: 06/07/23 05:39 06/07/23 05:39 Labs: Abnormal Lab Results - Last 24 Hours (Table) 06/06/23 06/07/23 06/07/23 Range/Units 11:38 05:39 05:39 WBC 11.10 H (4.50-10.00) X 10*3/uL RBC 3.57 L (4.10-5.20) X 10*6/uL Hgb 11.0 L (12.0-15.0) g/dL Hct 35.0 L (37.2-46.3) % MCV 98.0 H (80.0-97.0) FL MCHC 31.4 L (32.0-37.0) g/dL RDW 16.3 H (11.5-14.5) % Plt Count 139 L (140-440) X 10*3/uL Monocytes # 1.05 H (0.20-1.00) X 10*3/uL Eosinophils # 0.55 H (0.04-0.35) X 10*3/uL Anion Gap 12.20 H (4.00-12.00) mmol/L BUN 47.9 H (9.0-27.0) mg/dL Est GFR (CKD-EPI) 45 L (>=60) BUN/Creatinine Ratio 39.92 H (12.00-20.00) Ratio Calcium 8.2 L (8.7-10.3) mg/dL Total Protein 4.3 L (6.2-8.2) g/dL Albumin 2.5 L (3.8-4.9) g/dL Albumin/Globulin Ratio 1.39 L (1.60-3.17) Ratio Procalcitonin 0.13 H (0.02-0.09) ng/mL Microbiology - Last 24 Hours (Table) 06/01/23 18:37 Blood Culture - Final Blood 06/05/23 13:18 Gram Stain - Preliminary Pleural Fluid Body Fluid Culture - Preliminary Assessment and Plan Assessment: New onset atrial fibrillation with RVR, converted to normal sinus rhythm and the patient Is currently hemodynamically stable. Patient is currently on Cordarone and Coreg. Anticoagulation with Eliquis, currently on hold for procedures. Acute hypoxic respiratory failure post bronchoscopy May 24 2023 and the patient is currently on 4 L of oxygen by nasal cannula. Chest x-ray findings are stable and is consistent with a right upper lobe mass, pleural thickening and loculated right-sided pleural effusion. CT scan of the chest June 02, 2023 now revealing diffuse airspace opacities in the right lung. Moderate right pleural effusion. Ultrasound of the right chest reveals a loculated 7.2 cm pocket. Pigtail catheter placed 06/05/2023. Lytics instilled 06/06/2023 with approximately 500 mL of fluid return. Plan for lytic infusion again today June 07, 2023 She did undergo EGD today May 29, 2023 due to her dysphagia, unintentional weight loss and anticoagulant use. 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 She did undergo follow-up EGD May 31, 2023 for esophageal dilatation. Right upper lobe masslike consolidation measuring 4.0 cm in addition to extensive mediastinal lymphadenopathy involving the paratracheal, right hilar and suprahilar area and the patient has significant pleural surface irregularities and multiloculated right-sided pleural effusions. Note that the pleural surface is quite thickened and is reaching approximately 1.3 cm with significant irregularities and previous thoracentesis yielded no final pathology diagnosis. She did undergo an endobronchial ultrasound and biopsy of the mediastinal lymph nodes on May 24, 2023. Biopsies reveal possible poorly differentiated non-small cell carcinoma likely adenocarcinoma of the lung origin versus mesothelioma versus less likely lymphoma. Results from [facility] are pending. Mediastinal lymphadenopathy detail discussed above, awaiting final pathology post biopsy Chest wall pain with an irregular pleural surface border with multiple nodu larities and secondary pain. This is likely malignant process. Rule out mesothelioma versus adenocarcinoma versus lymphoma. Offered nonsteroidal anti- inflammatory medications for pain control. Pleural effusion with previous thoracentesis removed approximately 1.6 to 2 L of pleural fluid from the right lung. The fluid was exudative. The fluid cytology came back negative for malignancy Coronary arteriosclerosis with previous coronary artery bypass grafting Chronic systolic heart failure diagnosed by an echocardiogram that was done and the patient has ejection fraction of 25% and she has some edema in lower extremities and she is seeing cardiology and she is currently on diuretics and she is taking Lasix at a dose of 40 mg once a day Non-Hodgkin's lymphoma (clinical) She is in remission and she was diagnosed in 2013 and she has completed the chemotherapy. This involved the jaw and the head and neck Type 2 diabetes mellitus Maintained on Metformin and glyburide Rheumatoid arthritis On no treatment and she is off Ramicade Medical debility along with weight loss and diminished appetite and failure to thrive Plan: The patient was seen and evaluated Chest x-ray, labs and medications reviewed Pigtail catheter placed Lytics inserted yesterday and again today per CT services Continue cefepime Sodium bicarb infusion per nephrology Titrate down the FiO2 as tolerated We will continue to follow I have personally seen and examined the patient, performed the documentation and the assessment and plan as written. Number of minutes spent on the visit: 10.
[2023-06-07 16:27] LABS: Glucose,Whole Blood 93 mg/dL (70-110)
[2023-06-07] MEDS: carvediloL 3.125 MG TAB PO SCH (17:20)
[2023-06-07 20:34] LABS: Glucose,Whole Blood 105 mg/dL (70-110)
--- NOTE | 2023-06-08 05:29 | P.PN ---
Subjective Progress Note Date: 06/07/23 Patient is a 82-year-old female with a past medical history of coronary artery disease status post quadruple bypass in 2009 in [place], history of non- Hodgkin's lymphoma, hypertension, diabetes type 2, hyperlipidemia, history of [place], osteoarthritis, rheumatoid others, hypothyroidism. Patient was brought to the hospital for bronchoscopy with endoscopic ultrasound and DVT aspiration biopsy of the mediastinal lymph node.. Postprocedure while in the recovery room patient went into atrial fibrillation with rapid ventricular rate and heart rate went up to 130s. EKG showed atrial fibrillation with rapid ventricular rate. Cardizem drip was ordered but before starting the infusion patient converted back to sinus rhythm and heart rate came down to 70s. She was admitted to the hospital for further evaluation Patient was recently admitted to the hospital from 04/15/2023 to 04/21/2023. She is admitted due to worsening shortness of breath, requiring BiPAP. Patient was also found to have right-sided pleural effusion status post paracentesis showed reactive mesothelial cells, macrophages and mixed inflammatory cells. No c cytologically malignant cells identified. CT chest on 04/15/2023 showed large right-sided pleural effusion. Repeat CT on 05/07/2023 showed decreasing but residual moderate right pleural effusion, however there is worsening irregular dural thickening/throughout the right hemithorax now measuring up to 1.3 cm thick versus 1.0 cm previously. Focal subpleural soft tissue anteromedial right lower lung measures up to 3.3 cm and appears new. New diffuse subpleural nodularity along the right-sided lung fissures. Correlate for slight interval neoplastic disease present progression, possible lymphoma. Currently patient denies any complaints of chest pain. No worsening shortness of breath. Denies any palpitations. No nausea vomiting abdominal pain or diarrhea. Patient is on Ventimask which is being titrated down to nasal cannula oxygen. No complaints of fever or chills. No diarrhea. No cough or sputum production. Denies any worsening leg swelling recently. 05/25/2023 Patient is sitting on the side of the bed. Awake alert and oriented x 3. Complains of bloating and abdominal and not able to tolerate oral diet. No bowel movement today. Otherwise patient is having atrial fibrillation with RVR last night on and off. Was started on amiodarone drip and added anticoagulation with Eliquis as per cardiology recommendations. Patient was also found to have elevated free T4 level and low TSH level. Levothyroxine dose reduced to 125 mcg daily from 200 mcg which she takes at home. Otherwise patient has been afebrile. Requiring oxygen via nasal cannula. No complaints of chest pain. Does have exertional shortness of breath. Laboratory data showed Pulmonary and cardiology is on board. WBC 11.0 hemoglobin 12.7 platelets 151 Sodium 136 potassium 5.4 chloride 107 bicarb is 19 BUN 59 and creatinine 0.78 and blood sugar 165 TSH 0.276 and free T4 3.66. 05/26/2023 Patient is currently sitting on the side of the bed. Awake alert and oriented x 3. Feels weak and lethargic. Currently on oxygen at 4 L via nasal cannula. Otherwise heart rate is better controlled and amiodarone changed to p.o. Patient did have a swallow evaluation. Recommends EGD as per speech pathology. Otherwise patient has been afebrile. Blood pressure is marginal. Laboratory data reviewed. Cardiology and pulmonary is on board. 05/26. Patient seen and examined. Complaining of back pain. Currently on 3 L of oxygen. Gets short of breath on minimal exertion. Complaining of dysphagia 05/27. Patient seen and examined. Continues to be on 4 L of oxygen. 05/28. Patient seen and examined. General surgery are planning EGD today. Breathing has improved. Denies any chest pain. Vital signs stable lab work done showed WBC 9.29, hemoglobin 9.2, platelet count 131, sodium 133, potassium 5.6 05/29. Patient seen and examined. 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 Patient seen examined. Patient scheduled for repeat EGD today. Patient potassium level was elevated at 5.5, ordered Lokelma. Still complaining of shortness of breath. 05/31. Patient seen and examined.Blood work done this morning showed WBC 10.4, hemoglobin is 12.2, platelet count is 149,. Sodium 137 potassium 5.3, BUN 35.8, creatinine 0.7. Patient complaining of generalized weakness. Appetite has improved. PT and OT recommend rehab, 06/01. Patient seen and examined. Patient was seen by hematology oncology, they ordered MRI brain and outpatient PET scan. Chest x-ray done showed worsening opacity on the right with near complete whiteout appearance of the right hemothorax. CT chest done showed diffuse airspace opacity in the right lung concerning for pneumonia, moderate right pleural effusion, right upper lung masslike area seen in the pleural thickening suggested the mass of the right upper lung appears increased in size from prior. MRI brain negative for any mass or acute stroke. 06/02. Patient seen and examined.. Ultrasound right chest done showed loculated pocket on the right side 7.6 cm in size. Pulmonology recommended IR cons ultation for pigtail catheter placement 06/03. Patient seen and examined. Blood work done this morning showed WBC 12.92, hemoglobin 0.3, platelet count 161, pulmonology recommend pigtail catheter placement. Patient was sitting upright in the chair, stated breathing remains the same as yesterday 06/05/2023 Patient is seen in follow-up this morning status post pigtail catheter placeme nt. Patient was n.p.o. scheduled to be evaluated by interventional radiology as patient persists with pleural effusions. Pulmonary following as well and patient is maintained on breathing treatments. Patient sounds wet with bronchial congestion noted on exam and will initiate DuoNeb treatments and obtain a chest x-ray. Patient is afebrile and will follow-up with repeat labs. Recommend sitting up in the chair more often and out of the bed. Will have PT/OT therapy evaluate the patient. CT surgery is consulted and pending. Oncology following and pathology is pending as well 06/06/2023 Patient is seen this morning in follow-up has received a chest tube with CT surgery along with pulmonary and oncology following. Patient is maintained on antibiotics and cultures thus far are negative. Final pathology from 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 Patient reports shortness of breath has improved post chest tube placement and CT surgery is following administering alteplase daily with follow-up chest x-rays. Patient is afebrile with no reports of worsening shortness of breath and denies any chest pain or palpitations. Patient tolerating diet although not much of an appetite encouraged oral intake and will events. Patient with extreme weakness and nursing staff reports patient attempting to get up from the chair to the bed with extreme weakness. Had a lengthy discussion with patient along with family members at regarding CODE STATUS. Patient will be no code. Patient continues to want to await pathology report about treatment options. Overall prognosis is extremely guarded 06/07/2023 Patient is seen in follow-up today currently receiving alteplase via chest tube with CT surgery. Patient continues with bloody drainage and had over 500 cc of output continuing on alteplase administration with follow-up chest x-rays. Patient reports her breathing is improving and currently maintained on 5 L via nasal cannula. Patient has been encouraged to continue with incentive spirometer use although needs frequent encouragement. Patient with significant weakness recommend physical therapy daily and patient will likely need ECF for continued strength and mobility. Patient awaiting final pathology and would like to continue to follow with oncology and seek treatment if options are available. Patient is afebrile denies chest pain or worsening shortness of breath. Patient reports that tolerating diet and encouraged oral intake REVIEW OF SYSTEMS: CONSTITUTIONAL: No fever, reports of malaise,. CARDIOVASCULAR: No chest pain, no palpitations, no syncope. PULMONARY: As mentioned above GASTROINTESTINAL: No diarrhea, no nausea, no vomiting, no abdominal pain. Reports not much of an appetite NEUROLOGICAL: No headaches, reports of generalized weakness. PHYSICAL EXAMINATION: GENERAL: The patient is an 82-year-old female who is alert and oriented x3, not in any acute distress. Ill appearing, elderly appearing HEENT: Pupils are round and equally reacting to light. EOMI. No scleral icterus. No conjunctival pallor. Normocephalic, atraumatic. No pharyngeal erythema. No thyromegaly. CARDIOVASCULAR: S1 and S2 present. No murmurs, rubs, or gallops. PULMONARY: Coarse breath sound bilaterally, bilateral crackles audible, bronchial congestion is improved from yesterday. Improved aeration noted ABDOMEN: Soft, nontender, nondistended, normoactive bowel sounds. No palpable organomegaly. MUSCULOSKELETAL: No joint swelling or deformity. EXTREMITIES: No cyanosis, clubbing, or pedal edema. NEUROLOGICAL: Gross neurological examination did not reveal any focal deficits. Diffusely weak SKIN: No rashes. Assessment: New onset atrial fibrillation with rapid ventricular rate, currently rate controlled Diffuse subpleural nodularity along the right sided lung fissures correlate for interval neoplastic disease progression. Mediastinal lymphadenopathy. Patient is s/p bronchoscopy and endobronchial ultrasound with needle biopsy on 05/24/2023. Most likely non-small cell although awaiting finalized report from [facility] Acute hypoxic respiratory failure status post bronchoscopy. Right upper lobe masslike consolidation measuring 4.0 cm in addition to extensive mediastinal lymphadenopathy involving the paratracheal, right hilar and suprahilar area, status post chest tube placement currently receiving alteplase for loculation Recent admission with acute hypoxic respiratory failure status post right thoracentesis. fluid cytology negative for malignancy. Chronic CHF with systolic dysfunction ejection fraction 25 to 30%, mid to distal inferolateral and lateral wall hypokinesis and inferior apical wall hypokinesis. Ischemic cardiomyopathy Hyperkalemia, improved. 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 Generalized weakness with gait dysfunction Hypothyroidism. Patient has elevated free T4 level. Levothyroxine dose reduced to 125 mcg daily. History of non-Hodgkin's lymphoma status postchemotherapy. Currently in remission. GI prophylaxis DVT prophylaxis No code Plan: Multiple medical consultations following including pulmonary and CT surgery as patient is status post chest tube placement currently receiving alteplase daily for loculated fusion. Cultures thus far negative and patient is continued on antibiotics Pathology pending second opinion from [facility], most likely non- small cell lung primary Oncology following awaiting on pathology report to discuss further options. Patient reports she wants to continue to treat the cancer Continue with supplemental oxygen and wean off O2 as tolerated. Currently on 4 to 5 L Encouraged increase activity as tolerated, recommend PT/OT therapy daily as patient is significantly weak. Patient will need ECF on discharge Encouraged oral intake Continue monitoring Accu-Cheks ACHS and will continue current regimen and adjust insulins accordingly Repeat labs in the a.m. and replace electrolytes per protocol Due to multiple complex medical issues, prognosis is extremely guarded Discussed CODE STATUS with patient and family at the bedside and patient will be no code. Patient wants to continue awaiting pathology report and discussing w ith oncology about treatment options The impression and plan of care has been dictated by Kami Montoya, Nurse Practitioner as directed. Dr. Byron MD I have performed a history and examination and MDM of this patient, discussed the same with the dictator, and agree with the dictator's assessment and plan as written ,documented as a scribe. Based on total visit time, I have performed more than 50% of the visit. Objective - Vital Signs Vital signs: Vital Signs Temp 98.2 F 06/07/23 07:49 Pulse 60 06/07/23 08:12 Resp 18 06/07/23 08:05 BP 108/63 06/07/23 07:49 Pulse Ox 95 06/07/23 07:49 FiO2 Intake & Output 06/06/23 06/07/23 06/07/23 18:59 06:59 18:59 Output Total 1090 225 Balance -1090 -225 Weight 84.5 kg Output: Chest Tube Drainage 1090 Chest Tube Right 1090 Posterior Chest Drainage 225 Right Medial Back 225 Other: Voiding Method Toilet External Catheter # Voids 1 - Labs CBC & Chem 7: 06/07/23 05:39 06/07/23 05:39 Labs: Abnormal Lab Results - Last 24 Hours (Table) 06/06/23 06/06/23 06/07/23 Range/Units 11:38 11:38 05:39 WBC 15.8 H 11.10 H (3.8-10.6) k/uL RBC 3.57 L (4.10-5.20) X 10*6/uL Hgb 11.0 L (12.0-15.0) g/dL Hct 35.0 L (37.2-46.3) % MCV 98.0 H (80.0-97.0) FL MCHC 31.4 L (32.0-37.0) g/dL RDW 16.3 H (11.5-14.5) % Plt Count 139 L (140-440) X 10*3/uL Neutrophils # 11.4 H (1.3-7.7) k/uL Monocytes # 1.05 H (0.20-1.00) X 10*3/uL Eosinophils # 0.55 H (0.04-0.35) X 10*3/uL Anion Gap (4.00-12.00) mmol/L BUN (9.0-27.0) mg/dL Est GFR (CKD-EPI) (>=60) BUN/Creatinine Ratio (12.00-20.00) Ratio Calcium (8.7-10.3) mg/dL Total Protein (6.2-8.2) g/dL Albumin (3.8-4.9) g/dL Albumin/Globulin Ratio (1.60-3.17) Ratio Procalcitonin 0.13 H (0.02-0.09) ng/mL 06/07/23 Range/Units 05:39 WBC (3.8-10.6) k/uL RBC (4.10-5.20) X 10*6/uL Hgb (12.0-15.0) g/dL Hct (37.2-46.3) % MCV (80.0-97.0) FL MCHC (32.0-37.0) g/dL RDW (11.5-14.5) % Plt Count (140-440) X 10*3/uL Neutrophils # (1.3-7.7) k/uL Monocytes # (0.20-1.00) X 10*3/uL Eosinophils # (0.04-0.35) X 10*3/uL Anion Gap 12.20 H (4.00-12.00) mmol/L BUN 47.9 H (9.0-27.0) mg/dL Est GFR (CKD-EPI) 45 L (>=60) BUN/Creatinine Ratio 39.92 H (12.00-20.00) Ratio Calcium 8.2 L (8.7-10.3) mg/dL Total Protein 4.3 L (6.2-8.2) g/dL Albumin 2.5 L (3.8-4.9) g/dL Albumin/Globulin Ratio 1.39 L (1.60-3.17) Ratio Procalcitonin (0.02-0.09) ng/mL Microbiology - Last 24 Hours (Table) 06/01/23 18:37 Blood Culture - Final Blood 06/05/23 13:18 Gram Stain - Preliminary Pleural Fluid Body Fluid Culture - Preliminary
[2023-06-08 05:43] LABS: Glucose,Whole Blood 120 mg/dL (70-110)
[2023-06-08] MEDS: SODIUM CHLORIDE 0.9% 500 ML 500 ML IV ONE (06:56)
--- NOTE | 2023-06-08 07:45 | XR ---
EXAMINATION TYPE: XR chest 1V portable DATE OF EXAM: 06/08/2023 HISTORY: Shortness of breath. COMPARISON: 06/07/2023 TECHNIQUE: Single view of the chest is submitted. FINDINGS: Demonstrated are scattered senescent parenchymal change. Patchy infiltrate throughout the right lung as well as probable loculated effusion. Right basilar ple ural catheter is unchanged in position. Left lung is clear. Overall stable chest. The heart is stable. Hilar and mediastinal structures are within normal limits. Degenerative changes are seen of the dorsal spine. IMPRESSION: 1. Patchy infiltrate throughout the right lung as well as probable loculated effusion. Right basilar pleural catheter is unchanged in position. Left lung is clear. Overall stable chest.
[2023-06-08] MEDS: HYDROmorphone 0.5 MG/0.5 ML SYRINGE IVP PRN (09:14)
[2023-06-08 10:03] LABS: HCT 35.1 % (37.2-46.3); MCH 30.3 pg (27.0-32.0); MCHC 31.3 g/dL (32.0-37.0); MCV 96.7 FL (80.0-97.0); Mean Platelet Volume 11.5 FL (9.5-12.2); NRBC Per 100 WBC 0 X 10*3/uL (0.00-0.01); Platelet Count 163 X 10*3/uL (140-440); RBC 3.63 X 10*6/uL (4.10-5.20); RDW 16.7 % (11.5-14.5); WBC 14.45 X 10*3/uL (4.50-10.00)
[2023-06-08 10:18] LABS: BUN/Creat Ratio 37.36 Ratio (12.00-20.00); Blood Urea Nitrogen 52.3 mg/dL (9.0-27.0); Calcium 8.1 mg/dL (8.7-10.3); Carbon Dioxide 20.4 mmol/L (21.6-31.8); Chloride 100 mmol/L (96-109); Glucose 101 mg/dL (70-110); Magnesium 1.6 mg/dL (1.5-2.4); Potassium 4.7 mmol/L (3.5-5.5); Sodium 132 mmol/L (135-145)
[2023-06-08 10:29] LABS: Basophils # (A) 0.05 X 10*3/uL (0.00-0.10); Basophils % (A) 0.3 %; Eosinophils # (A) 0.58 X 10*3/uL (0.04-0.35); Lymphocytes # (A) 3.43 X 10*3/uL (0.90-5.00); Lymphocytes % (A) 23.7 %; Monocytes # (A) 1.54 X 10*3/uL (0.20-1.00); Monocytes % (A) 10.7 %; Neutrophils # (A) 8.77 X 10*3/uL (1.80-7.70); Neutrophils % (A) 60.7 %
[2023-06-08 10:30] LABS: RBC Morphology Normal (Normal)
[2023-06-08 11:28] LABS: Glucose,Whole Blood 123 mg/dL (70-110)
--- NOTE | 2023-06-08 11:48 | P.PN ---
Subjective Progress Note Date: 06/08/23 This is a 82-year-old female patient was suspected to have malignancy. The patient has been having progressive worsening in her health status in general. She has not been eating. She has been extremely weak and debilitated. She was in the hospital approximately a month ago and at that time she came in with acute hypoxic respiratory failure and the patient was initially supported with BiPAP and subsequently was found to have a right-sided pleural effusion. I performed a bedside thoracentesis on this patient and a total of 1.6 L of fluid was aspirated and fluid cytology was negative for malignancy. Echocardiogram showed impaired LV function with an EF of around 25 to 30% and there was some mid to distal anterolateral wall hypokinesis and apical hypokinesis. The patient also had mild to moderate aortic valve calcification without any stenosis. She is subsequent CAT scan of the chest showed a loculated moderate- sized right-sided pleural effusion and irregular pleural wall thickening and the rind throughout the right hemithorax up to 1.3 cm in size and there was also what seems to be right upper lobe mass with extension into the mediastinum in addition to lymphadenopathy within the right hilum measuring around 2.3 cm in size and right suprahilar measuring 1.9 cm in size and in the subcarinal area in addition. There was a mass in the right upper lobe that is pleural-based opacity measuring 4.0 cm in size. Of significance was extensive pleural surface irregularity and nodular structures and this was obviously a manifestation of a neoplastic process and the concern was adenocarcinoma versus mesothelioma versus lymphoma as the patient is known to have a previous history of lymphoma. This was explained to the patient and the family members at length. Family was adamant in establishing a diagnosis. Based on that, the patient was brought in today patient underwent an endobronchial ultrasound under general anesthesia. I did not biopsy the right upper lobe mass. I was going more conservative because of her medical problems and I ended up doing a transbronchial needle aspirate of station 10 R and station 7 lymph nodes. Note that following her procedure, the patient was extubated and she got transferred to recovery where she went into A- fib RVR. I ordered Cardizem drip and this was not started and by the time she was about to start the Cardizem she converted to normal sinus rhythm. I discussed the findings with the family. The family told me that the patient's condition was progressively getting worse and she was not eating and they were very much concerned about her health in general and they wanted to keep her in the hospital. As such, the patient will be hospitalized to telemetry unit. She is known to have a left atrial ejection fraction of 25%. She is also known to have history of rheumatoid arthritis and she is currently off Remicade. She has diabetes mellitus type 2, coronary artery disease, hyperlipidemia, hyperlipidemia, remote history of non-Hodgkin's lymphoma. On today's evaluation of 05/25/2023, the patient is stable on 4L of oxygen by nasal cannula. Her cardiac rhythm is back to sinus. She is started on anticoagulation and she is currently on Eliquis. She is also on Lasix 20 mg p.o. daily. She is on Coreg 6.25 mg twice a day. Denies having any new complaints. The white cell count 11 with a hemoglobin 12.7 and a platelet count of 151. Sodium is at 136, BUN is at 59 with a creatinine of 0.7 and a potassium level is at 5.4. Thyroid function test shows a TSH free of 3.66 with a free T4 of 0.276. The patient remains on levothyroxine at 125 mcg p.o. daily. The dose of the thyroid has been modified and the patient has been just from 200 mcg on 225. On today's evaluation of 05/26/2023, the patient is resting comfortably in bed. No specific complaints. She is lethargic and weak. She remains on 40s of oxygen by nasal cannula with a pulse ox of 94%. Results of the biopsy are still pending for now. The patient has no significant complaints. The patient has chest wall pain on the right. This is an ongoing chronic problem dated 2 abnormalities that were described earlier. The patient is currently in normal sinus mechanism. The patient's thyroid dose has been i adjusted by the medical group. [employer] also on the case. On today's evaluation of 05/27/2023, the patient is resting comfortably in bed. No specific complaints. Awaiting the results of the biopsy. WBC count is at 10.5 and hemoglobin 12 .7 and a platelet count of 135. The rest of the blood work shows a BUN of 62 with a creatinine of 1.09 and sodium levels at 131 with a potassium level of 5.8. The patient's is resting comfortably in bed. No other issues for now. She is complaining of pain along the right lateral chest area. She remains on anticoagulation with Eliquis 5 mg p.o. twice a day. She remains on her routine outpatient medications. Surgical consultation for dysphagia was done. Patient will be given an upper GI esophagogram and further workup regarding this dysphagia will be done depending on the results of the endobronchial ultrasound biopsies from the mediastinum. Highly suspicious for malignancy as mentioned. On today's evaluation of 05/28/2023, the patient resting comfortably in bed. No change in her condition. Awaiting final pathology from the biopsies and she should this should be available by Monday. Meanwhile, the patient has no specific complaints. She remains on 4 L with a pulse ox of 95%. Resting comfortably in bed. Pain remains unchanged. The patient is seen today May 29, 2023 in follow-up on the regular medical floor. She was initially here for an elective lung biopsy on May 24, 2023 but developed atrial fibrillation with a rapid ventricular response in the recovery room. She has been initiated on amiodarone. Anticoagulated with Eliquis. Pathology is still pending. She is maintaining O2 saturations in the 90s on 4 L/min per nasal cannula. She did undergo EGD today due to her dysphagia, unintentional weight loss and anticoagulant use. 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 White count 9.2. Hemoglobin 11.2. Platelets 131. Sodium 133. Potassium 5.6. Bicarb 24. BUN 44. Creatinine 0.8. Glucose 90. Patient was reevaluated today on 05/30/2023, pulmonary dos santos the patient is doing great, however she has GI issues being addressed by general surgery on the case. EGD on 05/28 showed AV malformation of the stomach surgery is still recommending holding anticoagulation until they do EGD dilatation which is scheduled for 05/05. Pulmonary dos santos no cough no wheezing no shortness of breath. And her atrial fibrillation seems to be relatively under control patient remains on 4 L nasal cannula with O2 sats of 96%, blood pressure 107/64, and A-fib seems to be controlled The patient is seen today May 31, 2023 in follow-up on the regular medical floor. She is awake and alert in no acute distress. She did undergo repeat EGD with rigid dilator for esophageal dilatation. Blood thinner Eliquis will be held for 48 hours. Ground diet recommended. Sodium 132. Potassium 5.5. Bicarb 22. BUN 40. Creatinine 0.78. Glucose 108. She remains on amiodarone. Continued on diuretics. Continued on Protonix. The patient is seen today June 01, 2023 in follow-up on the regular medical floor. She is resting comfortably in bed. Awake and alert in no acute distress. Maintaining O2 saturations in the 90s on 4 L/min per nasal cannula. White count 10.4. Hemoglobin 12.2. Platelets 149. Sodium 136. Potassium 5.3. Bicarb 24. BUN 36. Creatinine 0.7. Glucose 98. Initial pathology from fine- needle aspirate of the mediastinal lymph nodes revealed positive for malignant neoplasm however final results have been sent out to the [facility] and are pending. The patient is seen today June 02, 2023 in follow-up on the regular medical floor. She had gone down for CT scan of the chest and a MRI of the brain which was negative for metastasis. CT scan of the chest however revealing worsening and diffuse airspace opacities of the right lung. Moderate right pleural effusion. Right upper lung masslike area with pleural thickening. Biopsies reveal possible poorly differentiated non-small cell carcinoma likely adenocarcinoma of the lung origin versus mesothelioma versus less likely lymphoma. Results from [facility] are pending. She is maintaining good O2 saturations in the 90s on 4 L/min per nasal cannula. Afebrile. Hemodynamically stable. Glucose 119. Lactic acid 4.6. He remains on cefepime. Anticoagulated with Eliquis. The patient is seen today June 03, 2023 in follow-up on the regular medical floor. She is currently sitting up in bed. Awake and alert in no acute dis tress. Denies any worsening shortness of breath. She has a loose congested cough. No fever or chills. Maintaining O2 saturation in the low 90s on 5 L/min per nasal cannula. She is afebrile. Ultrasound of the right chest reveals a 7.6 cm loculated pocket. Blood culture revealed no growth. Biopsies reveal possible poorly differentiated non-small cell carcinoma likely adenocarcinoma of the lung origin versus mesothelioma versus less likely lymphoma. Results from [facility] are pending. White count 9.2. Hemoglobin 11.0. Platelets 127. Sodium 131. Potassium 4.6. Bicarb 20. BUN 41. Creatinine 0.86. He remains on cefepime. Continue on oral diuretics. The patient is seen today June 04, 2023 in follow-up on the regular medical floor. She is currently up in a chair at the bedside. She denies any worsening shortness of breath, cough or congestion. She is still dyspneic with exertion. She is maintaining good O2 saturations in the mid 90s on 4 L/min per nasal can nula. She is afebrile. Hemodynamically stable. Blood culture reveals no growth. White count 12.9. Hemoglobin 11.3. Platelets 161. Sodium 135. Potassium 5.0. Bicarb 20. BUN 40. Creatinine 1.0. Glucose 83. She is continued on cefepime. Remains on oral diuretics. The patient is seen today June 05, 2023 in follow-up on the regular medical floor. She is awake and alert in no acute distress. Currently resting fairly comfortably in bed. She has a productive cough. She is short of breath with conversation. Short of breath with minimal exertion. She is maintaining O2 saturations in the 90s on 5 L/min per nasal cannula. Plan is for right chest pigtail catheter insertion today. She remains on cefepime. Remains on oral diuretics. The patient is seen today June 06, 2023 in follow-up on the regular medical floor. She is awake and alert. She is sitting up in a chair at the bedside. She denies any worsening shortness of breath, cough or congestion. Maintaining good O2 saturation in the mid 90s on room air. She is afebrile. Hemodynamically stable. Chest x-ray reveals increased density throughout the right lung. Pigtail catheter was inserted yesterday. CT services consulted for possible alteplase/dornase infusions. Blood cultures revealed no growth. Pleural fluid cultures are pending. Fluid analysis is exudate with a total protein of 3.3 and an LDH of 1060. Cytology pending. White count 15.8. Hemoglobin 12.2. Platelets 197. Sodium 134. Potassium 5.3. Bicarb 13. BUN 52. Creatinine 1.14. Glucose 86. He is continued on DuoNeb inhalations. Oral diuretics. She has been initiated on sodium bicarbonate tablets and D5W with 3 A of bicarb at 50 MLS per hour. The patient is seen today June 07, 2023 in follow-up on the regular medical floor. She is currently sitting up in bed. Awake and alert in no acute distress. She is maintaining good O2 saturations in the 90s on 5 L/min per nasal cannula. She has D5W with 3 A of bicarb at 50 MLS per hour. She is on bronchodilators, oral diuretics, anticoagulated with Eliquis. She remains on antibiotics in the form of cefepime. Chest x-ray continues to show diffuse infiltrate through the right lung. Right-sided pigtail catheter is in place. She did have lytic instillation yesterday and approximately 500 mL of pleural fluid was returned. Cultures and cytology pending. The plan is for lytics again today per CT services. White count 11.1. Hemoglobin 11.0. Platelets 139. Sodium 136. Potassium 4.4. Bicarb 22. BUN 48. Creatinine 1.2. Glucose 87. The patient is seen today June 08, 2023 in follow-up on the regular medical floor. She is awake and alert in no acute distress. Feeling a bit stronger today compared to yesterday. Sitting up in a chair. Maintaining O2 saturations in the 90s on 5 L/min per nasal cannula. She remains on D5W with 3 A of bicarb at 50 MLS per hour. Antibiotics in the form of cefepime. Chest x-ray is showing improvement post lytic insertion into the pigtail catheter. White count 14.4. Hemoglobin 11.0. Platelets 163. Sodium 132. Potassium 4.7. Bicarb 20. BUN 52. Creatinine 1.4. Glucose 101. He remains on bronchodilators, mucinex, diuretics. Objective - Vital Signs Vital signs: Vital Signs Temp 98.1 F 06/08/23 07:14 Pulse 90 06/08/23 08:52 Resp 18 06/08/23 07:14 BP 89/48 06/08/23 09:32 Pulse Ox 93 L 06/08/23 08:46 FiO2 Intake & Output 06/07/23 06/08/23 06/08/23 18:59 06:59 18:59 Output Total 400 250 Balance -400 -250 Output: Drainage 250 Right Medial Back 250 Urine 400 0 Other: Voiding Method External Catheter - Exam GENERAL EXAM: Alert, pleasant 82-year-old female, sitting up in a chair, on 5 L nasal cannula, in no apparent distress. HEAD: Normocephalic. EYES: Normal reaction of pupils, equal size. NOSE: Clear with pink turbinates. THROAT: No erythema or exudates. NECK: No masses, no JVD. CHEST: No chest wall deformity. LUNGS: Equal air entry with few scattered rhonchi, diminished in the right lung. Right-sided pigtail catheter in place CVS: S1 and S2 normal with no audible murmur, regular rhythm. ABDOMEN: No hepatosplenomegaly, normal bowel sounds, no guarding or rigidity. SPINE: No scoliosis or deformity SKIN: No rashes CENTRAL NERVOUS SYSTEM: No focal deficits, tone is normal in all 4 extremities. EXTREMITIES: There is no peripheral edema. No clubbing, no cyanosis. Peripheral pulses are intact. - Labs CBC & Chem 7: 06/08/23 07:53 06/08/23 07:53 Labs: Abnormal Lab Results - Last 24 Hours (Table) 06/08/23 06/08/23 06/08/23 Range/Units 05:41 07:53 07:53 WBC 14.45 H (4.50-10.00) X 10*3/uL RBC 3.63 L (4.10-5.20) X 10*6/uL Hgb 11.0 L (12.0-15.0) g/dL Hct 35.1 L (37.2-46.3) % MCHC 31.3 L (32.0-37.0) g/dL RDW 16.7 H (11.5-14.5) % Immature Gran # 0.08 H (0.00-0.04) X 10*3/uL Neutrophils # 8.77 H (1.80-7.70) X 10*3/uL Monocytes # 1.54 H (0.20-1.00) X 10*3/uL Eosinophils # 0.58 H (0.04-0.35) X 10*3/uL Sodium 132 L (135-145) mmol/L Carbon Dioxide 20.4 L (21.6-31.8) mmol/L BUN 52.3 H (9.0-27.0) mg/dL Est GFR (CKD-EPI) 37 L (>=60) BUN/Creatinine Ratio 37.36 H (12.00-20.00) Ratio POC Glucose (mg/dL) 120 H (70-110) mg/dL Calcium 8.1 L (8.7-10.3) mg/dL 06/08/23 Range/Units 11:26 WBC (4.50-10.00) X 10*3/uL RBC (4.10-5.20) X 10*6/uL Hgb (12.0-15.0) g/dL Hct (37.2-46.3) % MCHC (32.0-37.0) g/dL RDW (11.5-14.5) % Immature Gran # (0.00-0.04) X 10*3/uL Neutrophils # (1.80-7.70) X 10*3/uL Monocytes # (0.20-1.00) X 10*3/uL Eosinophils # (0.04-0.35) X 10*3/uL Sodium (135-145) mmol/L Carbon Dioxide (21.6-31.8) mmol/L BUN (9.0-27.0) mg/dL Est GFR (CKD-EPI) (>=60) BUN/Creatinine Ratio (12.00-20.00) Ratio POC Glucose (mg/dL) 123 H (70-110) mg/dL Calcium (8.7-10.3) mg/dL Microbiology - Last 24 Hours (Table) 06/05/23 13:18 Anaerobic Culture - Preliminary Pleural Fluid 06/05/23 13:18 Gram Stain - Preliminary Pleural Fluid Body Fluid Culture - Preliminary Assessment and Plan Assessment: New onset atrial fibrillation with RVR, converted to normal sinus rhythm and the patient Is currently hemodynamically stable. Patient is currently on Cordarone and Coreg. Anticoagulation with Eliquis, currently on hold for procedures. Acute hypoxic respiratory failure post bronchoscopy May 24 2023 and the patient is currently on 4 L of oxygen by nasal cannula. Chest x-ray findings are stable and is consistent with a right upper lobe mass, pleural thickening and loculated right-sided pleural effusion. CT scan of the chest June 02, 2023 now revealing diffuse airspace opacities in the right lung. Moderate right pleural effusion. Ultrasound of the right chest reveals a loculated 7.2 cm pocket. Pigtail catheter placed 06/05/2023. Lytics instilled 06/06/2023 with approximately 500 mL of fluid return. Received lytic infusion again June 07, 2023. Chest x-ray is showing improvement She did undergo EGD today May 29, 2023 due to her dysphagia, unintentional weight loss and anticoagulant use. 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 She did undergo follow-up EGD May 31, 2023 for esophageal dilatation. Right upper lobe masslike consolidation measuring 4.0 cm in addition to extensive mediastinal lymphadenopathy involving the paratracheal, right hilar and suprahilar area and the patient has significant pleural surface irregularities and multiloculated right-sided pleural effusions. Note that the pleural surface is quite thickened and is reaching approximately 1.3 cm with significant irregularities and previous thoracentesis yielded no final pathology diagnosis. She did undergo an endobronchial ultrasound and biopsy of the mediastinal lymph nodes on May 24, 2023. Biopsies reveal possible poorly dif ferentiated non-small cell carcinoma likely adenocarcinoma of the lung origin versus mesothelioma versus less likely lymphoma. Results from [facility] are pending. Mediastinal lymphadenopathy detail discussed above, awaiting final pathology post biopsy Chest wall pain with an irregular pleural surface border with multiple nodularities and secondary pain. This is likely malignant process. Rule out mesothelioma versus adenocarcinoma versus lymphoma. Offered nonsteroidal anti-inflammatory medications for pain control. Pleural effusion with previous thoracentesis removed approximately 1.6 to 2 L of pleural fluid from the right lung. The fluid was exudative. The fluid cytology came back negative for malignancy Coronary arteriosclerosis with previous coronary artery bypass grafting Chronic systolic heart failure diagnosed by an echocardiogram that was done and the patient has ejection fraction of 25% and she has some edema in lower extremities and she is seeing cardiology and she is currently on diuretics and she is taking Lasix at a dose of 40 mg once a day Non-Hodgkin's lymphoma (clinical) She is in remission and she was diagnosed in 2013 and she has completed the chemotherapy. This involved the jaw and the head and neck Type 2 diabetes mellitus Maintained on Metformin and glyburide Rheumatoid arthritis On no treatment and she is off Ramicade Medical debility along with weight loss and diminished appetite and failure to thrive Plan: The patient was seen and evaluated Chest x-ray, labs and medications reviewed Chest x-ray showing improvement today Receiving lytic infusions per CT services Continue cefepime, bronchodilators Sodium bicarb infusion per nephrology Titrate down the FiO2 as tolerated We will continue to follow I have personally seen and examined the patient, performed the documentation and the assessment and plan as written. Number of minutes spent on the visit: 10.
[2023-06-08 12:21] VITALS: BMI 28.3
--- NOTE | 2023-06-08 12:37 | P.PN ---
Subjective patient is seen for follow-up for acute kidney injury Maintained on oral Lasix voiding on her own. serum creatinine at 1.4 today maintained on sodium bicarb drip at 50 mL an hour. right chest tube. blood pressure remains low with systolic in the 90s and 80s Objective - Vital Signs Vital signs: Vital Signs Temp 98.1 F 06/08/23 07:14 Pulse 90 06/08/23 08:52 Resp 18 06/08/23 07:14 BP 89/48 06/08/23 09:32 Pulse Ox 93 L 06/08/23 08:46 FiO2 Intake & Output 06/07/23 06/08/23 06/08/23 18:59 06:59 18:59 Output Total 400 250 Balance -400 -250 Weight 84.5 kg Output: Drainage 250 Right Medial Back 250 Urine 400 0 Other: Voiding Method External Catheter - Exam patient is awake, comfortable, no acute distress, lethargic Examination of the heart S1 and S2 Examination of the lungs bilateral breath sounds are heard, right chest tube Abdomen is soft nontender Examination of lower extremities shows 1+ edema bilaterally, improved NEMATOLOGIST exam grossly intact - Labs CBC & Chem 7: 06/08/23 07:53 06/08/23 07:53 Labs: Abnormal Lab Results - Last 24 Hours (Table) 06/08/23 06/08/23 06/08/23 Range/Units 05:41 07:53 07:53 WBC 14.45 H (4.50-10.00) X 10*3/uL RBC 3.63 L (4.10-5.20) X 10*6/uL Hgb 11.0 L (12.0-15.0) g/dL Hct 35.1 L (37.2-46.3) % MCHC 31.3 L (32.0-37.0) g/dL RDW 16.7 H (11.5-14.5) % Immature Gran # 0.08 H (0.00-0.04) X 10*3/uL Neutrophils # 8.77 H (1.80-7.70) X 10*3/uL Monocytes # 1.54 H (0.20-1.00) X 10*3/uL Eosinophils # 0.58 H (0.04-0.35) X 10*3/uL Sodium 132 L (135-145) mmol/L Carbon Dioxide 20.4 L (21.6-31.8) mmol/L BUN 52.3 H (9.0-27.0) mg/dL Est GFR (CKD-EPI) 37 L (>=60) BUN/Creatinine Ratio 37.36 H (12.00-20.00) Ratio POC Glucose (mg/dL) 120 H (70-110) mg/dL Calcium 8.1 L (8.7-10.3) mg/dL 06/08/23 Range/Units 11:26 WBC (4.50-10.00) X 10*3/uL RBC (4.10-5.20) X 10*6/uL Hgb (12.0-15.0) g/dL Hct (37.2-46.3) % MCHC (32.0-37.0) g/dL RDW (11.5-14.5) % Immature Gran # (0.00-0.04) X 10*3/uL Neutrophils # (1.80-7.70) X 10*3/uL Monocytes # (0.20-1.00) X 10*3/uL Eosinophils # (0.04-0.35) X 10*3/uL Sodium (135-145) mmol/L Carbon Dioxide (21.6-31.8) mmol/L BUN (9.0-27.0) mg/dL Est GFR (CKD-EPI) (>=60) BUN/Creatinine Ratio (12.00-20.00) Ratio POC Glucose (mg/dL) 123 H (70-110) mg/dL Calcium (8.7-10.3) mg/dL Microbiology - Last 24 Hours (Table) 06/05/23 13:18 Anaerobic Culture - Preliminary Pleural Fluid 06/05/23 13:18 Gram Stain - Preliminary Pleural Fluid Body Fluid Culture - Preliminary Assessment and Plan Assessment: 1. Hyperkalemia. Takes lisinopril outpatient but currently held. Blood sugars not elevated. No significant acidosis. No urinary retention. Stable. Maintained on loop diuretics 2. Hypercalcemia secondary to vitamin D supplementation and concern for underlying malignancy. Vitamin D level 33.1. SCAR level low. PTH low at 5.1. TSH normal. 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 Calcium level better. 8.1 3. Dysphagia status post EGD with dilation. Surgery following. 4. A-fib with RVR. Stable. 5. Right upper lobe mass like consolidation with mediastinal lymphadenopathy concerning for malignancy. 6. History of lymphoma. 7. Diabetes mellitus. 8. Metabolic acidosis, non-gap 9. Right pleural effusion status post chest tube placement 10. Acute kidney injury secondary to hemodynamic ATN, nonoliguric. bladder scan showed 220 mL. this will be repeated next shift Plan: add midodrine Continue with oral sodium bicarb DC IV bicarb if patient is able to take oral medications Continue off of all antihypertensive medications Repeat labs in a.m. monitor post void bladder scans
--- NOTE | 2023-06-08 13:05 | P.PN ---
Subjective Progress Note Date: 06/08/23 Principal diagnosis: Right-sided recurrent loculated pleural effusion, status postplacement of pigtail catheter, acute hypoxic respiratory failure, fine-needle aspiration positive for malignant neoplasm, final pathology pending report from [facility], new onset atrial fibrillation. Past medical history significant for coronary artery disease status post four-vessel CABG in 2009, chronic heart failure with reduced ejection fraction, hypertension, hyperlipidemia, diabetes, osteoarthritis, rheumatoid arthritis, hypothyroid. The patient was seen and examined at her bedside on the fourth floor medical surgical unit today June 08, 2023. She is currently laying in bed, is awake, alert, oriented x 3 and is in no acute apparent distress. Oxygen saturations 93% on 4 L nasal cannula and she is achieving 750 mL on her incentive spirometry with encouragement. The patient underwent a pleural instillation of alteplase/dornase which was her second lytic treatment with her right chest pigtail catheter in place. 400 mL of thin serosanguineous drainage drained over the last 24 hours after the lytic treatment. The patient denies any shortness of breath at this time. Chest x-ray was reviewed. She will receive a third dose of alteplase/dornase pleural instillation per her right pigtail catheter today. Objective - Vital Signs Vital signs: Vital Signs Temp 98.1 F 06/08/23 07:14 Pulse 90 06/08/23 08:52 Resp 18 06/08/23 07:14 BP 89/48 06/08/23 09:32 Pulse Ox 93 L 06/08/23 08:46 FiO2 Intake & Output 06/07/23 06/08/23 06/08/23 18:59 06:59 18:59 Output Total 400 250 Balance -400 -250 Weight 84.5 kg Output: Drainage 250 Right Medial Back 250 Urine 400 0 Other: Voiding Method External Catheter - Exam CONSTITUTIONAL: Appears comfortable, cooperative, no acute distress RESPIRATORY: Lungs sounds diminished bilaterally. Respirations even, nonlabored. Currently on 4 L nasal cannula with oxygen saturation 93%. Able to achieve 750 mL on incentive spirometry. Strong cough. CARDIOVASCULAR: S1, S2 present. Regular rate and rhythm. Palpable peripheral pulses bilaterally. Generalized edema present. No calf pain or tenderness noted. SCDs present. GASTROINTESTINAL: Abdomen soft, nontender, nondistended. Active bowel sounds present 4 quadrants. Tolerating diet. GENITOURINARY: Continues to void. INTEGUMENTARY: Skin is warm and dry with no clubbing or cyanosis present. Right chest pigtail site clean, dry with dressing intact. NEUROLOGIC: Cranial nerves II through XII intact. MUSKULOSKELETAL: Able to move all extremities, strength equal bilaterally. PSYCHIATRIC: Alert and oriented to person place and time, appropriate affect, intact judgment and insight. INVASIVE LINES AND TUBES: Right pigtail catheter present and connected to wall suction, tiny intermittent air leak present, 400 mL drainage in the last 24 hours. - Allied health notes Allied health notes reviewed: nursing - Labs CBC & Chem 7: 06/08/23 07:53 06/08/23 07:53 Labs: Abnormal Lab Results - Last 24 Hours (Table) 06/08/23 06/08/23 06/08/23 Range/Units 05:41 07:53 07:53 WBC 14.45 H (4.50-10.00) X 10*3/uL RBC 3.63 L (4.10-5.20) X 10*6/uL Hgb 11.0 L (12.0-15.0) g/dL Hct 35.1 L (37.2-46.3) % MCHC 31.3 L (32.0-37.0) g/dL RDW 16.7 H (11.5-14.5) % Immature Gran # 0.08 H (0.00-0.04) X 10*3/uL Neutrophils # 8.77 H (1.80-7.70) X 10*3/uL Monocytes # 1.54 H (0.20-1.00) X 10*3/uL Eosinophils # 0.58 H (0.04-0.35) X 10*3/uL Sodium 132 L (135-145) mmol/L Carbon Dioxide 20.4 L (21.6-31.8) mmol/L BUN 52.3 H (9.0-27.0) mg/dL Est GFR (CKD-EPI) 37 L (>=60) BUN/Creatinine Ratio 37.36 H (12.00-20.00) Ratio POC Glucose (mg/dL) 120 H (70-110) mg/dL Calcium 8.1 L (8.7-10.3) mg/dL 06/08/23 Range/Units 11:26 WBC (4.50-10.00) X 10*3/uL RBC (4.10-5.20) X 10*6/uL Hgb (12.0-15.0) g/dL Hct (37.2-46.3) % MCHC (32.0-37.0) g/dL RDW (11.5-14.5) % Immature Gran # (0.00-0.04) X 10*3/uL Neutrophils # (1.80-7.70) X 10*3/uL Monocytes # (0.20-1.00) X 10*3/uL Eosinophils # (0.04-0.35) X 10*3/uL Sodium (135-145) mmol/L Carbon Dioxide (21.6-31.8) mmol/L BUN (9.0-27.0) mg/dL Est GFR (CKD-EPI) (>=60) BUN/Creatinine Ratio (12.00-20.00) Ratio POC Glucose (mg/dL) 123 H (70-110) mg/dL Calcium (8.7-10.3) mg/dL Microbiology - Last 24 Hours (Table) 06/05/23 13:18 Anaerobic Culture - Preliminary Pleural Fluid 06/05/23 13:18 Gram Stain - Preliminary Pleural Fluid Body Fluid Culture - Preliminary - Imaging and Cardiology Chest x-ray: report reviewed, image reviewed Assessment and Plan Assessment: Right-sided recurrent loculated pleural effusion, status postplacement of right pigtail catheter Acute hypoxic respiratory failure, currently on 4 L nasal cannula oxygen Fine-needle aspiration positive for malignant neoplasm, final pathology pending report from [facility] Shortness of breath secondary to above New onset atrial fibrillation, currently sinus Coronary artery disease status post four-vessel CABG in 2009 Chronic heart failure with reduced ejection fraction, 25 to 30% Hypertension Hyperlipidemia Diabetes Osteoarthritis Rheumatoid arthritis Hypothyroid Plan: Third dose of alteplase/dornase lytic pleural instillation today per her right pigtail catheter, allow 1 to 2 hours dwell time before returning to continuous wall suction, monitor drainage. Wean O2 as tolerated, encourage incentive spirometry use 10 times every hour while awake. Increase activity as tolerated. Out of bed for all meals. Will monitor daily chest x-rays. Medical management of other comorbidities per internal medicine, and pulmonology. More recommendations to follow based on patient's clinical course. Time with Patient: Greater than 30
[2023-06-08] MEDS: ALTEPLASE 10 MG in SODIUM CHLORIDE 0.9% 50 ML IRRIGATION ONE (13:16)
[2023-06-08] MEDS: DORNASE ALFA 5 MG in SODIUM CHLORIDE 0.9% 50 ML IRRIGATION ONE (13:17)
--- NOTE | 2023-06-08 13:55 | P.PN ---
Subjective Progress Note Date: 06/08/23 Patient is a 82-year-old female with a past medical history of coronary artery disease status post quadruple bypass in 2009 in [place], history of non- Hodgkin's lymphoma, hypertension, diabetes type 2, hyperlipidemia, history of HI, osteoarthritis, rheumatoid others, hypothyroidism. Patient was brought to the hospital for bronchoscopy with endoscopic ultrasound and DVT aspiration biopsy of the mediastinal lymph node.. Postprocedure while in the recovery room patient went into atrial fibrillation with rapid ventricular rate and heart rate went up to 130s. EKG showed atrial fibrillation with rapid ventricular rate. Cardizem drip was ordered but before starting the infusion patient converted back to sinus rhythm and heart rate came down to 70s. She was admitted to the hospital for further evaluation Patient was recently admitted to the hospital from 04/15/2023 to 04/21/2023. She is admitted due to worsening shortness of breath, requiring BiPAP. Patient was also found to have right-sided pleural effusion status post paracentesis showed reactive mesothelial cells, macrophages and mixed inflammatory cells. No c cytologically malignant cells identified. CT chest on 04/15/2023 showed large right-sided pleural effusion. Repeat CT on 05/07/2023 showed decreasing but residual moderate right pleural effusion, however there is worsening irregular dural thickening/throughout the right hemithorax now measuring up to 1.3 cm thick versus 1.0 cm previously. Focal subpleural soft tissue anteromedial right lower lung measures up to 3.3 cm and appears new. New diffuse subpleural nodularity along the right-sided lung fissures. Correlate for slight interval neoplastic disease present progression, possible lymphoma. Currently patient denies any complaints of chest pain. No worsening shortness of breath. Denies any palpitations. No nausea vomiting abdominal pain or diarrhea. Patient is on Ventimask which is being titrated down to nasal cannula oxygen. No complaints of fever or chills. No diarrhea. No cough or sputum production. Denies any worsening leg swelling recently. 05/25/2023 Patient is sitting on the side of the bed. Awake alert and oriented x 3. Complains of bloating and abdominal and not able to tolerate oral diet. No bowel movement today. Otherwise patient is having atrial fibrillation with RVR last night on and off. Was started on amiodarone drip and added anticoagulation with Eliquis as per cardiology recommendations. Patient was also found to have elevated free T4 level and low TSH level. Levothyroxine dose reduced to 125 mcg daily from 200 mcg which she takes at home. Otherwise patient has been afebrile. Requiring oxygen via nasal cannula. No complaints of chest pain. Does have exertional shortness of breath. Laboratory data showed Pulmonary and cardiology is on board. WBC 11.0 hemoglobin 12.7 platelets 151 Sodium 136 potassium 5.4 chloride 107 bicarb is 19 BUN 59 and creatinine 0.78 and blood sugar 165 TSH 0.276 and free T4 3.66. 05/26/2023 Patient is currently sitting on the side of the bed. Awake alert and oriented x 3. Feels weak and lethargic. Currently on oxygen at 4 L via nasal cannula. Otherwise heart rate is better controlled and amiodarone changed to p.o. Patient did have a swallow evaluation. Recommends EGD as per speech pathology. Otherwise patient has been afebrile. Blood pressure is marginal. Laboratory data reviewed. Cardiology and pulmonary is on board. 05/26. Patient seen and examined. Complaining of back pain. Currently on 3 L of oxygen. Gets short of breath on minimal exertion. Complaining of dysphagia 05/27. Patient seen and examined. Continues to be on 4 L of oxygen. 05/28. Patient seen and examined. General surgery are planning EGD today. Breathing has improved. Denies any chest pain. Vital signs stable lab work done showed WBC 9.29, hemoglobin 9.2, platelet count 131, sodium 133, potassium 5.6 05/29. Patient seen and examined. 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 Patient seen examined. Patient scheduled for repeat EGD today. Patient potassium level was elevated at 5.5, ordered Lokelma. Still complaining of shortness of breath. 05/31. Patient seen and examined.Blood work done this morning showed WBC 10.4, hemoglobin is 12.2, platelet count is 149,. Sodium 137 potassium 5.3, BUN 35.8, creatinine 0.7. Patient complaining of generalized weakness. Appetite has improved. PT and OT recommend rehab, 06/01. Patient seen and examined. Patient was seen by hematology oncology, they ordered MRI brain and outpatient PET scan. Chest x-ray done showed worsening opacity on the right with near complete whiteout appearance of the right hemothorax. CT chest done showed diffuse airspace opacity in the right lung concerning for pneumonia, moderate right pleural effusion, right upper lung masslike area seen in the pleural thickening suggested the mass of the right upper lung appears increased in size from prior. MRI brain negative for any mass or acute stroke. 06/02. Patient seen and examined.. Ultrasound right chest done showed loculated pocket on the right side 7.6 cm in size. Pulmonology recommended IR cons ultation for pigtail catheter placement 06/03. Patient seen and examined. Blood work done this morning showed WBC 12.92, hemoglobin 0.3, platelet count 161, pulmonology recommend pigtail catheter placement. Patient was sitting upright in the chair, stated breathing remains the same as yesterday 06/05/2023 Patient is seen in follow-up this morning status post pigtail catheter placeme nt. Patient was n.p.o. scheduled to be evaluated by interventional radiology as patient persists with pleural effusions. Pulmonary following as well and patient is maintained on breathing treatments. Patient sounds wet with bronchial congestion noted on exam and will initiate DuoNeb treatments and obtain a chest x-ray. Patient is afebrile and will follow-up with repeat labs. Recommend sitting up in the chair more often and out of the bed. Will have PT/OT therapy evaluate the patient. CT surgery is consulted and pending. Oncology following and pathology is pending as well 06/06/2023 Patient is seen this morning in follow-up has received a chest tube with CT surgery along with pulmonary and oncology following. Patient is maintained on antibiotics and cultures thus far are negative. 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 Patient reports shortness of breath has improved post chest tube placement and CT surgery is following administering alteplase daily with follow-up chest x-rays. Patient is afebrile with no reports of worsening shortness of breath and denies any chest pain or palpitations. Patient tolerating diet although not much of an appetite encouraged oral intake and will events. Patient with extreme weakness and nursing staff reports patient attempting to get up from the chair to the bed with extreme weakness. Had a lengthy discussion with patient along with family members at regarding CODE STATUS. Patient will be no code. Patient continues to want to await pathology report about treatment options. Overall prognosis is extremely guarded 06/07/2023 Patient is seen in follow-up today currently receiving alteplase via chest tube with CT surgery. Patient continues with bloody drainage and had over 500 cc of output continuing on alteplase administration with follow-up chest x-rays. Patient reports her breathing is improving and currently maintained on 5 L via nasal cannula. Patient has been encouraged to continue with incentive spirometer use although needs frequent encouragement. Patient with significant weakness recommend physical therapy daily and patient will likely need ECF for continued strength and mobility. Patient awaiting final pathology and would like to continue to follow with oncology and seek treatment if options are available. Patient is afebrile denies chest pain or worsening shortness of breath. Patient reports that tolerating diet and encouraged oral intake 06/08/2023 Patient is seen in follow-up this morning and per nursing staff patient was having intense abdominal pain with nausea and vomiting unable to tolerate oral intake or take pain medications and was given a dose of IV Dilaudid as patient was reporting severe 10/10 pain. Patient continues with right side pigtail catheter continuing to receive alteplase for loculated effusion. CT surgery following and will administer third dose today. Blood pressures are marginal on the lower side and nephrology following and patient is maintained on sodium bicarb drip. Patient currently requiring 4 to 5 L via nasal cannula and reports shortness of breath. Patient reports lightheadedness and dizziness and reports she feels this way due to low blood pressure. Had a discussion with family about overall prognosis and will place hospice informational meeting as prognosis is extremely poor and guarded at this time. REVIEW OF SYSTEMS: CONSTITUTIONAL: No fever, reports of malaise,. CARDIOVASCULAR: No chest pain, no palpitations, no syncope. PULMONARY: As mentioned above GASTROINTESTINAL: No diarrhea, reports of nausea and vomiting, with severe abdominal pain earlier. Reports not much of an appetite, no bowel movement in days NEUROLOGICAL: No headaches, reports of generalized weakness. PHYSICAL EXAMINATION: GENERAL: The patient is an 82-year-old female who is alert and oriented x3, not in any acute distress. Ill appearing, elderly appearing HEENT: Pupils are round and equally reacting to light. EOMI. No scleral icterus. No conjunctival pallor. Normocephalic, atraumatic. No pharyngeal erythema. No thyromegaly. CARDIOVASCULAR: S1 and S2 present. No murmurs, rubs, or gallops. PULMONARY: Coarse breath sound bilaterally, bilateral crackles audible, bronchial congestion is improved from yesterday. Improved aeration noted ABDOMEN: Soft, mildly tender, nondistended, normoactive bowel sounds. No palpable organomegaly. MUSCULOSKELETAL: No joint swelling or deformity. EXTREMITIES: No cyanosis, clubbing, or pedal edema. NEUROLOGICAL: Gross neurological examination did not reveal any focal deficits. Diffusely weak SKIN: No rashes. Pale Assessment: New onset atrial fibrillation with rapid ventricular rate, currently rate controlled Diffuse subpleural nodularity along the right sided lung fissures correlate for interval neoplastic disease progression. Mediastinal lymphadenopathy. Patient is s/p bronchoscopy and endobronchial ultrasound with needle biopsy on 05/24/2023. Most likely non-small cell although awaiting finalized report from [facility] Acute hypoxic respiratory failure status post bronchoscopy. Continues on 4 to 5 L via nasal cannula Right upper lobe masslike consolidation measuring 4.0 cm in addition to extensive mediastinal lymphadenopathy involving the paratracheal, right hilar and suprahilar area, status post chest tube placement currently receiving alteplase for loculation Recent admission with acute hypoxic respiratory failure status post right thoracentesis. fluid cytology negative for malignancy. Chronic CHF with systolic dysfunction ejection fraction 25 to 30%, mid to distal inferolateral and lateral wall hypokinesis and inferior apical wall hypokinesis. Ischemic cardiomyopathy Hyperkalemia, improved. 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 Generalized weakness with gait dysfunction Hypothyroidism. Patient has elevated free T4 level. Levothyroxine dose reduced to 125 mcg daily. History of non-Hodgkin's lymphoma status postchemotherapy. Currently in remission. GI prophylaxis DVT prophylaxis No code Plan: Multiple medical consultations following including pulmonary and CT surgery as patient is status post pigtail catheter placement currently receiving alteplase daily for loculated fusion. Patient is on dose #3 today. Cultures thus far negative and patient is continued on antibiotics Pathology pending second opinion from [facility], most likely non- small cell lung primary Oncology following awaiting on pathology report to discuss further options. Patient reports she wants to continue to treat the cancer Continue with supplemental oxygen and wean off O2 as tolerated. Currently on 4 to 5 L Encouraged increase activity as tolerated, recommend PT/OT therapy daily as patient is significantly weak. Patient will need ECF on discharge Encouraged oral intake. Patient has not had a bowel movement in days and reported abdominal pain this morning and was vomiting per nursing staff and severe pain unable to tolerate oral intake. Patient has not been eating much of anything during admission. Encouraged supplements and oral intake Continue monitoring Accu-Cheks ACHS and will continue current regimen and adjust insulins accordingly Repeat labs in the a.m. and replace electrolytes per protocol Had a discussion with family regarding overall prognosis and continued clinical decline, has requested an informational hospice. Consult was placed and pending. Family is unable to take her home if hospice is decided on and will have to evaluate for possible [facility] or hospice house or if patient's clinical condition deteriorates, may require GIP Due to multiple complex medical issues, prognosis is extremely poor and guarded Discussed CODE STATUS with patient and family at the bedside and patient will be no code. The impression and plan of care has been dictated by Kami Montoya, Nurse Practitioner as directed. Dr. Byron MD I have performed a history and examination and MDM of this patient, discussed the same with the dictator, and agree with the dictator's assessment and plan as written ,documented as a scribe. Based on total visit time, I have performed more than 50% of the visit. Objective - Vital Signs Vital signs: Vital Signs Temp 98.9 F 06/08/23 00:30 Pulse 83 06/08/23 00:30 Resp 17 06/08/23 00:30 BP 90/45 06/08/23 00:30 Pulse Ox 93 L 06/08/23 00:30 FiO2 Intake & Output 06/07/23 06/07/23 06/08/23 06:59 18:59 06:59 Output Total 225 400 Balance -225 -400 Weight 84.5 kg Output: Drainage 225 Right Medial Back 225 Urine 400 Other: Voiding Method External Catheter # Voids 1 - Labs CBC & Chem 7: 06/08/23 07:53 06/08/23 07:53 Labs: Abnormal Lab Results - Last 24 Hours (Table) 06/07/23 06/07/23 Range/Units 05:39 05:39 WBC 11.10 H (4.50-10.00) X 10*3/uL RBC 3.57 L (4.10-5.20) X 10*6/uL Hgb 11.0 L (12.0-15.0) g/dL Hct 35.0 L (37.2-46.3) % MCV 98.0 H (80.0-97.0) FL MCHC 31.4 L (32.0-37.0) g/dL RDW 16.3 H (11.5-14.5) % Plt Count 139 L (140-440) X 10*3/uL Monocytes # 1.05 H (0.20-1.00) X 10*3/uL Eosinophils # 0.55 H (0.04-0.35) X 10*3/uL Anion Gap 12.20 H (4.00-12.00) mmol/L BUN 47.9 H (9.0-27.0) mg/dL Est GFR (CKD-EPI) 45 L (>=60) BUN/Creatinine Ratio 39.92 H (12.00-20.00) Ratio Calcium 8.2 L (8.7-10.3) mg/dL Total Protein 4.3 L (6.2-8.2) g/dL Albumin 2.5 L (3.8-4.9) g/dL Albumin/Globulin Ratio 1.39 L (1.60-3.17) Ratio Microbiology - Last 24 Hours (Table) 06/05/23 13:18 Anaerobic Culture - Preliminary Pleural Fluid 06/05/23 13:18 Gram Stain - Preliminary Pleural Fluid Body Fluid Culture - Preliminary 06/01/23 18:37 Blood Culture - Final Blood
[2023-06-08] MEDS ORDERED: Magnesium Replacement Protocol 1 EACH MISC MISCELLANE PRN (13:56)
[2023-06-08] MEDS: MAGNESIUM SULFATE-D5W PMX 1 GM in DEXTROSE/WATER 1 100ML.BAG IVPB SCH (14:09)
[2023-06-08 16:20] LABS: Glucose,Whole Blood 128 mg/dL (70-110)
[2023-06-08] MEDS: MIDODRINE 5 MG TAB PO SCH (16:28)
[2023-06-08 20:37] LABS: Glucose,Whole Blood 130 mg/dL (70-110)
[2023-06-09 06:01] LABS: Glucose,Whole Blood 103 mg/dL (70-110)
[2023-06-09 10:30] LABS: Basophils # (A) 0.02 X 10*3/uL (0.00-0.10); Basophils % (A) 0.2 %; Eosinophils # (A) 0.63 X 10*3/uL (0.04-0.35); HCT 35.8 % (37.2-46.3); HGB 11.1 g/dL (12.0-15.0); Lymphocytes # (A) 2.65 X 10*3/uL (0.90-5.00); MCH 30.3 pg (27.0-32.0); MCV 97.8 FL (80.0-97.0); Mean Platelet Volume 11.4 FL (9.5-12.2); Monocytes # (A) 1.11 X 10*3/uL (0.20-1.00); Monocytes % (A) 8.8 %; NRBC Per 100 WBC 0 X 10*3/uL (0.00-0.01); Neutrophils # (A) 8.17 X 10*3/uL (1.80-7.70); Neutrophils % (A) 64.5 %; Platelet Count 161 X 10*3/uL (140-440); RBC 3.66 X 10*6/uL (4.10-5.20); RDW 16.7 % (11.5-14.5); WBC 12.64 X 10*3/uL (4.50-10.00)
[2023-06-09 10:40] LABS: BUN/Creat Ratio 41.71 Ratio (12.00-20.00); Blood Urea Nitrogen 58.4 mg/dL (9.0-27.0); Calcium 7.8 mg/dL (8.7-10.3); Carbon Dioxide 24.1 mmol/L (21.6-31.8); Chloride 98 mmol/L (96-109); Glucose 85 mg/dL (70-110); Magnesium 2.2 mg/dL (1.5-2.4); Potassium 4.3 mmol/L (3.5-5.5); Sodium 133 mmol/L (135-145)
--- NOTE | 2023-06-09 10:45 | P.PN ---
Subjective patient is seen for follow-up for acute kidney injury Maintained on oral Lasix voiding on her own. serum creatinine at 1.4 today maintained on sodium bicarb drip at 50 mL an hour. right chest tube. blood pressure remains low with systolic in the 90s and 80s Objective - Vital Signs Vital signs: Vital Signs Temp 97.4 F L 06/09/23 07:37 Pulse 65 06/09/23 09:33 Resp 19 06/09/23 07:37 BP 97/62 06/09/23 07:37 Pulse Ox 94 L 06/09/23 09:27 FiO2 Intake & Output 06/08/23 06/09/23 06/09/23 18:59 06:59 18:59 Output Total 400 Balance -400 Weight 84.5 kg Output: Drainage 400 Right Medial Back 400 Other: Voiding Method Bedside Commode # Voids 2 1 - Exam patient is awake, comfortable, no acute distress, lethargic Examination of the heart S1 and S2 Examination of the lungs bilateral breath sounds are heard, right chest tube Abdomen is soft nontender Examination of lower extremities shows 1+ edema bilaterally, improved [employer] exam grossly intact - Labs CBC & Chem 7: 06/09/23 07:21 06/09/23 07:21 Labs: Abnormal Lab Results - Last 24 Hours (Table) 06/08/23 06/08/23 06/08/23 Range/Units 11:26 16:18 20:34 WBC (4.50-10.00) X 10*3/uL RBC (4.10-5.20) X 10*6/uL Hgb (12.0-15.0) g/dL Hct (37.2-46.3) % MCV (80.0-97.0) FL MCHC (32.0-37.0) g/dL RDW (11.5-14.5) % Immature Gran # (0.00-0.04) X 10*3/uL Neutrophils # (1.80-7.70) X 10*3/uL Monocytes # (0.20-1.00) X 10*3/uL Eosinophils # (0.04-0.35) X 10*3/uL Sodium (135-145) mmol/L BUN (9.0-27.0) mg/dL Est GFR (CKD-EPI) (>=60) BUN/Creatinine Ratio (12.00-20.00) Ratio POC Glucose (mg/dL) 123 H 128 H 130 H (70-110) mg/dL Calcium (8.7-10.3) mg/dL 06/09/23 06/09/23 Range/Units 07:21 07:21 WBC 12.64 H (4.50-10.00) X 10*3/uL RBC 3.66 L (4.10-5.20) X 10*6/uL Hgb 11.1 L (12.0-15.0) g/dL Hct 35.8 L (37.2-46.3) % MCV 97.8 H (80.0-97.0) FL MCHC 31.0 L (32.0-37.0) g/dL RDW 16.7 H (11.5-14.5) % Immature Gran # 0.06 H (0.00-0.04) X 10*3/uL Neutrophils # 8.17 H (1.80-7.70) X 10*3/uL Monocytes # 1.11 H (0.20-1.00) X 10*3/uL Eosinophils # 0.63 H (0.04-0.35) X 10*3/uL Sodium 133 L (135-145) mmol/L BUN 58.4 H (9.0-27.0) mg/dL Est GFR (CKD-EPI) 37 L (>=60) BUN/Creatinine Ratio 41.71 H (12.00-20.00) Ratio POC Glucose (mg/dL) (70-110) mg/dL Calcium 7.8 L (8.7-10.3) mg/dL Microbiology - Last 24 Hours (Table) 06/05/23 13:18 Gram Stain - Preliminary Pleural Fluid Body Fluid Culture - Preliminary Assessment and Plan Assessment: 1. Hyperkalemia on initial admission, improved with loop diuretics and holding SCAR inhibitor's. no urine retention. Blood sugars are not elevated. 2. Hypercalcemia secondary to vitamin D supplementation and concern for underlying malignancy. Vitamin D level 33.1. SCAR level low. PTH low at 5.1. TSH normal. 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 Calcium level better. 8.1 3. Dysphagia status post EGD with dilation. Surgery following. 4. A-fib with RVR. Stable. 5. Right upper lobe mass like consolidation with mediastinal lymphadenopathy concerning for malignancy. 6. History of lymphoma. 7. Diabetes mellitus. 8. Metabolic acidosis, non-gap 9. Right pleural effusion status post chest tube placement 10. Acute kidney injury secondary to hemodynamic ATN, nonoliguric. bladder scan showed 220 mL. Plan: add midodrine Continue with oral sodium bicarb DC IV bicarb Continue off of all antihypertensive medications Repeat labs in a.m. monitor post void bladder scans
[2023-06-09 11:36] LABS: Glucose,Whole Blood 103 mg/dL (70-110)
--- NOTE | 2023-06-09 12:31 | P.PN ---
Subjective Progress Note Date: 06/09/23 Principal diagnosis: Shortness of breath. The patient is seen today June 03, 2023 in follow-up on the regular medical floor. She is currently sitting up in bed. Awake and alert in no acute distress. Denies any worsening shortness of breath. She has a loose congested cough. No fever or chills. Maintaining O2 saturation in the low 90s on 5 L/min per nasal cannula. She is afebrile. Ultrasound of the right chest reveals a 7.6 cm loculated pocket. Blood culture revealed no growth. Biopsies reveal possible poorly differentiated non-small cell carcinoma likely adenocarcinoma of the lung origin versus mesothelioma versus less likely lymphoma. Results from [facility] are pending. White count 9.2. Hemoglobin 11.0. Platelets 127. Sodium 131. Potassium 4.6. Bicarb 20. BUN 41. Creatinine 0.86. He remains on cefepime. Continue on oral diuretics. The patient is seen today June 04, 2023 in follow-up on the regular medical floor. She is currently up in a chair at the bedside. She denies any worsening shortness of breath, cough or congestion. She is still dyspneic with exertion. She is maintaining good O2 saturations in the mid 90s on 4 L/min per nasal cannula. She is afebrile. Hemodynamically stable. Blood culture reveals no growth. White count 12.9. Hemoglobin 11.3. Platelets 161. Sodium 135. Potassium 5.0. Bicarb 20. BUN 40. Creatinine 1.0. Glucose 83. She is continued on cefepime. Remains on oral diuretics. The patient is seen today June 05, 2023 in follow-up on the regular medical floor. She is awake and alert in no acute distress. Currently resting fairly comfortably in bed. She has a productive cough. She is short of breath with conversation. Short of breath with minimal exertion. She is maintaining O2 saturations in the 90s on 5 L/min per nasal cannula. Plan is for right chest pigtail catheter insertion today. She remains on cefepime. Remains on oral diuretics. The patient is seen today June 06, 2023 in follow-up on the regular medical floor. She is awake and alert. She is sitting up in a chair at the bedside. She denies any worsening shortness of breath, cough or congestion. Maintaining good O2 saturation in the mid 90s on room air. She is afebrile. Hemodynamically stable. Chest x-ray reveals increased density throughout the right lung. Pigtail catheter was inserted yesterday. CT services consulted for possible alteplase/dornase infusions. Blood cultures revealed no growth. Pleural fluid cultures are pending. Fluid analysis is exudate with a total protein of 3.3 and an LDH of 1060. Cytology pending. White count 15.8. Hemoglobin 12.2. Platelets 197. Sodium 134. Potassium 5.3. Bicarb 13. BUN 52. Creatinine 1.14. Glucose 86. He is continued on DuoNeb inhalations. Oral diuretics. She has been initiated on sodium bicarbonate tablets and D5W with 3 A of bicarb at 50 MLS per hour. The patient is seen today June 07, 2023 in follow-up on the regular medical floor. She is currently sitting up in bed. Awake and alert in no acute distress. She is maintaining good O2 saturations in the 90s on 5 L/min per nasal cannula. She has D5W with 3 A of bicarb at 50 MLS per hour. She is on bronchodilators, oral diuretics, anticoagulated with Eliquis. She remains on antibiotics in the form of cefepime. Chest x-ray continues to show diffuse infiltrate through the right lung. Right-sided pigtail catheter is in place. She did have lytic instillation yesterday and approximately 500 mL of pleural fluid was returned. Cultures and cytology pending. The plan is for lytics again today per CT services. White count 11.1. Hemoglobin 11.0. Platelets 139. Sodium 136. Potassium 4.4. Bicarb 22. BUN 48. Creatinine 1.2. Glucose 87. The patient is seen today June 08, 2023 in follow-up on the regular medical floor. She is awake and alert in no acute distress. Feeling a bit stronger today compared to yesterday. Sitting up in a chair. Maintaining O2 saturations in the 90s on 5 L/min per nasal cannula. She remains on D5W with 3 A of bicarb at 50 MLS per hour. Antibiotics in the form of cefepime. Chest x-ray is showing improvement post lytic insertion into the pigtail catheter. White count 14.4. Hemoglobin 11.0. Platelets 163. Sodium 132. Potassium 4.7. Bicarb 20. BUN 52. Creatinine 1.4. Glucose 101. He remains on bronchodilators, mucinex, diuretics. Progress note dated June 09, 2023. The patient is seen today on the general regular floor, room 467. The patient is currently on oxygen, at 5 L by nasal cannula. The patient is currently not on any antibiotics. The patient is getting D5W at 50 cc an hour. The patient has had 3 instillations of alpha dornase, and tPA, through her pigtail catheter. Her chest x-ray has shown improvement. Current labs include a white count of 12.64, hemoglobin 11.1, hematocrit 35.8, and a platelet count of 161,000. Sodium 133, potassium 4.3, chlorides 98, CO2 24, BUN 58, and creatinine 1.4. Glucose is 85. Objective - Vital Signs Vital signs: Vital Signs Temp 97.4 F L 06/09/23 07:37 Pulse 65 06/09/23 09:33 Resp 19 06/09/23 07:37 BP 97/62 06/09/23 07:37 Pulse Ox 94 L 06/09/23 09:27 FiO2 Intake & Output 06/08/23 06/09/23 06/09/23 18:59 06:59 18:59 Output Total 400 Balance -400 Weight 84.5 kg Output: Drainage 400 Right Medial Back 400 Other: Voiding Method Bedside Commode # Voids 2 1 - Exam No acute distress, oriented 3. Currently on 5 L nasal cannula. No conversational dyspnea or use of accessory muscles. HEENT examination is grossly unremarkable. Mucous membranes are moist. No oral lesions. Neck supple. Full range of motion. No adenopathy thyromegaly or neck vein distention. Cardiovascular examination reveals regular rhythm rate. S1-S2 normal. No S3 or S4. No discernible murmur noted. Heart rate is 65 bpm. Lungs reveal scattered scattered rhonchi. No wheezes. No crackles. Breath sounds are diminished on the right. Right-sided pigtail catheter is noted. Abdomen soft bowel sounds are heard. No masses or tenderness. Extremities are intact. No cyanosis clubbing or edema. Skin is without rash or lesion. Neurologic examination is brief but nonfocal. - Labs CBC & Chem 7: 06/09/23 07:21 06/09/23 07:21 Labs: Abnormal Lab Results - Last 24 Hours (Table) 06/08/23 06/08/2324 Range/Units 16:18 20:34 07:21 WBC 12.64 H (4.50-10.00) X 10*3/uL RBC 3.66 L (4.10-5.20) X 10*6/uL Hgb 11.1 L (12.0-15.0) g/dL Hct 35.8 L (37.2-46.3) % MCV 97.8 H (80.0-97.0) FL MCHC 31.0 L (32.0-37.0) g/dL RDW 16.7 H (11.5-14.5) % Immature Gran # 0.06 H (0.00-0.04) X 10*3/uL Neutrophils # 8.17 H (1.80-7.70) X 10*3/uL Monocytes # 1.11 H (0.20-1.00) X 10*3/uL Eosinophils # 0.63 H (0.04-0.35) X 10*3/uL Sodium (135-145) mmol/L BUN (9.0-27.0) mg/dL Est GFR (CKD-EPI) (>=60) BUN/Creatinine Ratio (12.00-20.00) Ratio POC Glucose (mg/dL) 128 H 130 H (70-110) mg/dL Calcium (8.7-10.3) mg/dL 06/09/23 Range/Units 07:21 WBC (4.50-10.00) X 10*3/uL RBC (4.10-5.20) X 10*6/uL Hgb (12.0-15.0) g/dL Hct (37.2-46.3) % MCV (80.0-97.0) FL MCHC (32.0-37.0) g/dL RDW (11.5-14.5) % Immature Gran # (0.00-0.04) X 10*3/uL Neutrophils # (1.80-7.70) X 10*3/uL Monocytes # (0.20-1.00) X 10*3/uL Eosinophils # (0.04-0.35) X 10*3/uL Sodium 133 L (135-145) mmol/L BUN 58.4 H (9.0-27.0) mg/dL Est GFR (CKD-EPI) 37 L (>=60) BUN/Creatinine Ratio 41.71 H (12.00-20.00) Ratio POC Glucose (mg/dL) (70-110) mg/dL Calcium 7.8 L (8.7-10.3) mg/dL Microbiology - Last 24 Hours (Table) 06/05/23 13:18 Gram Stain - Preliminary Pleural Fluid Body Fluid Culture - Preliminary Assessment and Plan Assessment: New onset atrial fibrillation with RVR, converted to normal sinus rhythm and the patient Is currently hemodynamically stable. Patient is currently on Cordarone and Coreg. Anticoagulation with Eliquis. Acute hypoxic respiratory failure post bronchoscopy May 24 2023 and the patient is currently on 4 L of oxygen by nasal cannula. Chest x-ray findings are stable and is consistent with a right upper lobe mass, pleural thickening and loculated right-sided pleural effusion. CT scan of the chest June 02, 2023 now revealing diffuse airspace opacities in the right lung. Moderate right pleural effusion. Ultrasound of the right chest reveals a loculated 7.2 cm pocket. Pigtail catheter placed 06/05/2023. Lytics instilled 06/06/2023 with approximately 500 mL of fluid return. Received lytic infusion again June 07, 2023. Chest x-ray is showing improvement. She did undergo EGD today May 29, 2023 due to her dysphagia, unintentional weight loss and anticoagulant use. 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 She did undergo follow-up EGD May 31, 2023 for esophageal dilatation. Right upper lobe masslike consolidation measuring 4.0 cm in addition to exte nsive mediastinal lymphadenopathy involving the paratracheal, right hilar and suprahilar area and the patient has significant pleural surface irregularities and multiloculated right-sided pleural effusions. Note that the pleural surface is quite thickened and is reaching approximately 1.3 cm with significant irregularities and previous thoracentesis yielded no final pathology diagnosis. She did undergo an endobronchial ultrasound and biopsy of the mediastinal lymph nodes on May 24, 2023. Biopsies reveal possible poorly differentiated non- small cell carcinoma likely adenocarcinoma of the lung origin versus mesothelioma versus less likely lymphoma. Results from [facility] are pending. Mediastinal lymphadenopathy detail discussed above, awaiting final pathology post biopsy. Chest wall pain with an irregular pleural surface border with multiple nodularities and secondary pain. This is likely malignant process. Rule out mesothelioma versus adenocarcinoma versus lymphoma. Offered nonsteroidal anti- inflammatory medications for pain control. Pleural effusion with previous thoracentesis removed approximately 1.6 to 2 L of pleural fluid from the right lung. The fluid was exudative. The fluid cytology came back negative for malignancy. Coronary arteriosclerosis with previous coronary artery bypass grafting. Chronic systolic heart failure diagnosed by an echocardiogram that was done and the patient has ejection fraction of 25% and she has some edema in lower extremities and she is seeing cardiology and she is currently on diuretics and she is taking Lasix at a dose of 40 mg once a day. Non-Hodgkin's lymphoma (clinical) She is in remission and she was diagnosed in 2013 and she has completed the chemotherapy. This involved the jaw and the head and neck. Type 2 diabetes mellitus Maintained on Metformin and glyburide. Rheumatoid arthritis On no treatment and she is off Ramicade. Medical debility along with weight loss and diminished appetite and failure to thrive. Plan: Plan dated June 09, 2023. The patient appears to be doing a bit better. She is in no respiratory distress. The patient is currently not on any antibiotics. The patient has had alpha dornase, and tPA instilled into her right-sided pigtail catheter 3 times. Her most recent chest x-ray is improved. We will continue to follow and make recommendations along the way. Labs, x-rays, and medications are reviewed. Prognosis is guarded. Time with Patient: Less than 30
[2023-06-09 14:13] VITALS: PULSE 73
--- NOTE | 2023-06-09 14:25 | P.DS ---
Providers Date of admission: 05/29/23 15:10 Expected date of discharge: 06/09/23 Attending physician: Payton Oliveros Consults: 05/24/23 22:05 Consult Physician Routine Consulting Provider: Tosha Parsons Consult Reason/Comments: Pleural effusion, mediastinal lymphadenopathy Do you want consulting provider notified?: Already Contacted 05/31/23 09:56 Consult Physician Routine Consulting Provider: Ayana Carl Consult Reason/Comments: Hyperkalemia Do you want consulting provider notified?: Yes 06/01/23 09:17 Consult Physician Routine Consulting Provider: Luis Miguel Gandhi Consult Reason/Comments: Right upper lobe mass, mediastinal adenopathy, pathology pending Do you want consulting provider notified?: Yes 06/05/23 14:50 Consult Physician Routine Consulting Provider: Bar Hernadez Consult Reason/Comments: Alteplase/dornase in pigtail catheter Do you want consulting provider notified?: Yes Primary care physician: [facility] Course: Final diagnosis New onset atrial fibrillation with rapid ventricular rate, currently rate controlled Diffuse subpleural nodularity along the right sided lung fissures correlate for interval neoplastic disease progression. Mediastinal lymphadenopathy. Patient is s/p bronchoscopy and endobronchial ultrasound with needle biopsy on 05/24/2023. Most likely non-small cell although awaiting finalized report from [facility] Acute hypoxic respiratory failure status post bronchoscopy. Continues on 4 to 5 L via nasal cannula Right upper lobe masslike consolidation measuring 4.0 cm in addition to extensive mediastinal lymphadenopathy involving the paratracheal, right hilar and suprahilar area, status post pigtail catheter placement and had received alteplase x3 for loculation Recent admission with acute hypoxic respiratory failure status post right thoracentesis. fluid cytology negative for malignancy. Chronic CHF with systolic dysfunction ejection fraction 25 to 30%, mid to distal inferolateral and lateral wall hypokinesis and inferior apical wall hypokinesis. Ischemic cardiomyopathy Hyperkalemia, improved. 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 Generalized weakness with gait dysfunction Hypothyroidism. History of non-Hodgkin's lymphoma status postchemotherapy. Currently in remission. GI prophylaxis DVT prophylaxis No code Discharge disposition Patient is being discharged in a stable condition with guarded prognosis to [facility]. Patient does have a right side pigtail catheter on the long. Total time taken is greater than 35 minutes. Hospital course This is a 82-year-old female who was recently admitted with increased shortness of breath with hypoxic respiratory failure and pleural effusion and concerns for right upper lobe masslike consolidation being closely monitored with multiple medical consultations. Patient is status post pigtail catheter placement on the right and has been receiving tPA x 3 for a loculated effusion. Cultures are negative and also a biopsy was obtained and most likely positive for non-small cell lung carcinoma primary although has been sent to [facility] for second opinion. Patient has had progressive weakness and general decline and continues to have hypoxic respiratory failure requiring oxygen. Patient also noted with dysphagia with AV malformation and underwent dilation this admission. Patient not tolerating much oral intake and was having nausea with vomiting. Patient has been recently hospitalized more frequently with recurrent pleural effusions along with chronic CHF with systolic dysfunction and an EF of 25% with ischemic cardiomyopathy. Patient does have past medical history of non- Hodgkin's lymphoma with chemotherapy that is currently in remission. CODE STATUS was discussed and patient agreeable to no code. Further discussion with family regarding overall prognosis and clinical decline have opted to go to hospice. Patient not meeting criteria for inpatient GIP and is planning on going to [facility]. Please refer to other consultation notes for further HPI. Currently no reports of chest pain, shortness of breath, or palpitations. Patient is afebrile. No reports of nausea or vomiting, tolerating some small pleasure foods although not much of an appetite and has not been eating very much this admission. Patient will be going to [facility] today. Overall poor prognosis Physical exam: Gen: This is an 82 year old female who is awake, alert, and oriented x 2-3, thin built, elderly appearing, ill-appearing HEENT: Head is atraumatic, normocephalic. Pupils equal, round. Sclerae is anicteric. NECK: Supple. No JVD. No lymphadenopathy. No thyromegaly. LUNGS: Diminished breath sounds bilaterally with coarse rhonchi and some crackles at the bases. No intercostal retractions. HEART: Regular rate and rhythm. No murmur. ABDOMEN: Soft. Bowel sounds are present. No masses. No tenderness. EXTREMITIES: No pedal edema. No calf tenderness. Generalized edema noted of lower extremities NEUROLOGICAL: Patient is awake, alert and oriented x3. Cranial nerves 2 through 12 are grossly intact. Diffusely weak Please refer to medication reconciliation sheet for a list of medications. The impression and plan of care has been dictated by Kami Montoya, Nurse Practitioner as directed. Dr. Byron MD I have performed a history and examination and MDM of this patient, discussed the same with the dictator, and agree with the dictator's assessment and plan as written ,documented as a scribe. Based on total visit time, I have performed more than 50% of the visit. Patient Condition at Discharge: Poor Plan - Discharge Summary Discharge Rx Participant: No New Discharge Prescriptions: New Docusate [Colace] 100 mg PO BID cap Amiodarone [Cordarone] 400 mg PO BID tab carvediloL [Coreg] 3.125 mg PO BID-W/MEALS tab Ipratropium-Albuterol Nebulize [Duoneb 0.5 mg-3 mg/3 ml Soln] 3 ml INHALATION RT-TID PRN each PRN Reason: Shortness Of Breath Or Wheezing Fluticasone Nasal Crooks [Flonase Nasal Crooks] 2 spray EA NOSTRIL DAILY PRN ml PRN Reason: Allergy Symptoms Midodrine [ProAmatine] 5 mg PO AC-TID tab Sodium Bicarbonate Tab 650 mg PO BID tab Ipratropium-Albuterol Nebulize [Duoneb 0.5 mg-3 mg/3 ml Soln] 3 ml INHALATION RT-TID each Apixaban Initiation Dose--VTE [Eliquis Initiation Dosing for VTE Treatment] 10 mg PO BID tab HYDROcodone/APAP 5-325MG [[place] 5-325] 1 each PO Q4HR PRN tab PRN Reason: Pain INSULIN ASPART (NovoLOG) [NovoLOG (formulary)] 0 unit SQ ACHS each Levothyroxine Sodium [Synthroid] 125 mcg PO DAILY@0630 tab Continue Ferrous Sulfate [Iron (65 MG Elemental)] 325 mg PO QAM Cyanocobalamin (Vitamin B-12) [Vitamin B-12] 1,000 mcg PO QAM Simvastatin [Zocor] 20 mg PO HS Omeprazole 40 mg PO QAM Ibuprofen 600 mg PO Q8H PRN PRN Reason: Pain Cholecalciferol [Vitamin D3 (25 Mcg = 1000 Iu)] 25 mcg PO QAM Isosorbide Mononitrate ER [Imdur] 30 mg PO QAM Furosemide [Lasix] 20 mg PO QAM Discontinued carvediloL [Coreg] 6.25 mg PO BID Aspirin EC [Ecotrin Low Dose] 81 mg PO QAM lisinopriL 40 mg PO QAM Levothyroxine Sodium [Synthroid] 200 mcg PO QAM Discharge Medication List Cholecalciferol [Vitamin D3 (25 Mcg = 1000 Iu)] 25 mcg PO QAM 04/14/23 [History] Cyanocobalamin (Vitamin B-12) [Vitamin B-12] 1,000 mcg PO QAM 04/14/23 [History] Ferrous Sulfate [Iron (65 MG Elemental)] 325 mg PO QAM 04/14/23 [History] Omeprazole 40 mg PO QAM 04/14/23 [History] Simvastatin [Zocor] 20 mg PO HS 04/14/23 [History] Furosemide [Lasix] 20 mg PO QAM 05/23/23 [History] Ibuprofen 600 mg PO Q8H PRN 05/23/23 [History] Isosorbide Mononitrate ER [Imdur] 30 mg PO QAM 05/23/23 [History] Amiodarone [Cordarone] 400 mg PO BID tab 06/09/23 [Rx] Apixaban Initiation Dose--VTE [Eliquis Initiation Dosing for VTE Treatment] 10 mg PO BID tab 06/09/23 [Rx] Docusate [Colace] 100 mg PO BID cap 06/09/23 [Rx] Fluticasone Nasal Crooks [Flonase Nasal Crooks] 2 spray EA NOSTRIL DAILY PRN ml 06/09/23 [Rx] HYDROcodone/APAP 5-325MG [[place] 5-325] 1 each PO Q4HR PRN tab 06/09/23 [Rx] INSULIN ASPART (NovoLOG) [NovoLOG (formulary)] 0 unit SQ ACHS each 06/09/23 [Rx] Ipratropium-Albuterol Nebulize [Duoneb 0.5 mg-3 mg/3 ml Soln] 3 ml INHALATION RT-TID each 06/09/23 [Rx] Ipratropium-Albuterol Nebulize [Duoneb 0.5 mg-3 mg/3 ml Soln] 3 ml INHALATION RT-TID PRN each 06/09/23 [Rx] Levothyroxine Sodium [Synthroid] 125 mcg PO DAILY@0630 tab 06/09/23 [Rx] Midodrine [ProAmatine] 5 mg PO AC-TID tab 06/09/23 [Rx] Sodium Bicarbonate Tab 650 mg PO BID tab 06/09/23 [Rx] carvediloL [Coreg] 3.125 mg PO BID-W/MEALS tab 06/09/23 [Rx] Activity/Diet/Wound Care/Special Instructions: Patient going to [facility] Activity as tolerated Continue with pigtail catheter for palliative drainage as needed Home Care - [facility] - [phone] Discharge Disposition: OTHER INSTITUTION NOT DEFINED
[2023-06-09 15:35] VITALS: BP 101/54; RESP 16; TEMP 98.2
== END 2023-06-09 16:36 | disposition hospice, inpatient (51) | DRG 264 ==
LOC: ORWHC2ENDO 12:50 → 3SCARD 14:59 → ORWHC2ENDO 05-25 10:16 → 3SCARD 05-25 10:16 → 4SSUR 05-28 07:21 → OBSVTOIN 05-29 15:10
PROVIDERS: ADMIT Hospitalist; ATTEND Hospitalist
PROC: 0BJ08ZZ Inspection of Tracheobronchial Tree, Via Natural or Artificial Opening Endoscopic (ICD-10-PCS; 2023-05-24)
PROC: BB4CZZZ Ultrasonography of Mediastinum (ICD-10-PCS; 2023-05-24)
PROC: 0BBB8ZX Excision of Left Lower Lobe Bronchus, Via Natural or Artificial Opening Endoscopic, Diagnostic (ICD-10-PCS; 2023-05-24)
PROC: 0BB38ZX Excision of Right Main Bronchus, Via Natural or Artificial Opening Endoscopic, Diagnostic (ICD-10-PCS; 2023-05-24)
PROC: 07B73ZX Excision of Thorax Lymphatic, Percutaneous Approach, Diagnostic (ICD-10-PCS; principal; 2023-05-24 13:40)
PROC: 0DJ08ZZ Inspection of Upper Intestinal Tract, Via Natural or Artificial Opening Endoscopic (ICD-10-PCS; 2023-05-29)
PROC: 0D718ZZ Dilation of Upper Esophagus, Via Natural or Artificial Opening Endoscopic (ICD-10-PCS; 2023-05-31)
PROC: 0W9930Z Drainage of Right Pleural Cavity with Drainage Device, Percutaneous Approach (ICD-10-PCS; 2023-06-05)
PROC: 3E0L3GC Introduction of Other Therapeutic Substance into Pleural Cavity, Percutaneous Approach (ICD-10-PCS; 2023-06-06)
DX: I48.91 Unspecified atrial fibrillation (principal); J96.01 Acute respiratory failure with hypoxia; N17.0 Acute kidney failure with tubular necrosis; C34.11 Malignant neoplasm of upper lobe, right bronchus or lung; D69.3 Immune thrombocytopenic purpura; I50.22 Chronic systolic (congestive) heart failure; I97.191 Other postprocedural cardiac functional disturbances following other surgery; E87.20 Acidosis, unspecified; J94.2 Hemothorax; K22.10 Ulcer of esophagus without bleeding; J91.8 Pleural effusion in other conditions classified elsewhere; I11.0 Hypertensive heart disease with heart failure; E11.40 Type 2 diabetes mellitus with diabetic neuropathy, unspecified; M06.9 Rheumatoid arthritis, unspecified; Z66 Do not resuscitate; Z51.5 Encounter for palliative care; R62.7 Adult failure to thrive; I95.9 Hypotension, unspecified; K22.2 Esophageal obstruction; D89.2 Hypergammaglobulinemia, unspecified; J98.09 Other diseases of bronchus, not elsewhere classified; R63.4 Abnormal weight loss; K22.89 Other specified disease of esophagus; K29.70 Gastritis, unspecified, without bleeding; K55.20 Angiodysplasia of colon without hemorrhage; I35.8 Other nonrheumatic aortic valve disorders; E03.9 Hypothyroidism, unspecified; I25.10 Atherosclerotic heart disease of native coronary artery without angina pectoris; K44.9 Diaphragmatic hernia without obstruction or gangrene; K21.9 Gastro-esophageal reflux disease without esophagitis; E87.5 Hyperkalemia; I25.5 Ischemic cardiomyopathy; I45.10 Unspecified right bundle-branch block; E83.52 Hypercalcemia; T45.2X5A Adverse effect of vitamins, initial encounter; R26.89 Other abnormalities of gait and mobility; R53.81 Other malaise; M19.90 Unspecified osteoarthritis, unspecified site; E78.5 Hyperlipidemia, unspecified; Z95.1 Presence of aortocoronary bypass graft; I25.2 Old myocardial infarction; Z85.71 Personal history of Hodgkin lymphoma; Z92.21 Personal history of antineoplastic chemotherapy; Z87.891 Personal history of nicotine dependence; Z80.9 Family history of malignant neoplasm, unspecified; Z79.82 Long term (current) use of aspirin; Z79.890 Hormone replacement therapy; Z79.899 Other long term (current) drug therapy; Z88.8 Allergy status to other drugs, medicaments and biological substances; Z88.5 Allergy status to narcotic agent; Z85.72 Personal history of non-Hodgkin lymphomas; Z68.28 Body mass index [BMI] 28.0-28.9, adult
CPT/HCPCS: 31629; 31652; 32551; 36410; 43235; 43248; 70553; 71045; 71260; 74018; 76604; 76937; 76942; 80048; 80053; 82164; 82306; 82533; 82652; 82784; 82945; 83036; 83605; 83615; 83735; 83880; 83883; 83970; 84132; 84145; 84157; 84165; 84439; 84443; 84484; 85025; 85027; 85610; 86334; 87040; 87070; 87075; 87205; 88108; 88305; 88341; 88342; 89050; 94640; 94760